=== PATIENT | male | born 1970 | race Caucasian/White ===

== ENCOUNTER 2022-05-08 12:45 | Outpatient (RCR) | payer MEDICAID, SELFPAY | END 2023-04-02 11:33 | disposition home or self-care (01) | PROVIDERS: PCP Surgery; Visit Provider Surgery | DX: F80.89 Other developmental disorders of speech and language (principal); Z51.89 Encounter for other specified aftercare | CPT/HCPCS: 92507; 92523 ==

== ENCOUNTER 2022-06-23 21:27 | Emergency (ER) | payer MEDICAID, SELFPAY ==
[2022-06-23 21:40] VITALS: BP 125/74; PULSE 82; RESP 18; TEMP 36.6; O2SAT 99; BMI 50.0
--- NOTE | 2022-06-23 21:55 | ED_ITS ---
HPI - General Adult General Time Seen by Provider: 21:55 Date Seen: 06/23/22 Chief complaint: GI Bleed Stated complaint: Blood in Stool Time Seen by Provider: 06/23/22 21:34 Source: patient Mode of arrival: ambulatory Limitations: no limitations History of Present Illness HPI narrative: Patient is a 52 year white male with obesity, insulin-dependent diabetes, histor y of kidney cancer, presents with small amount of blood associated with the stool today. He is not lightheaded, dizzy, on no blood thinners. He does take insulin, he has had no chest pain, breathing problem, COVID symptoms. No history of rectal bleeding. He reports his was able to look at his rectal area in the noted no abnormalities he has not had no lumps or tenderness Dr. Monet for primary care Related Data Allergies Allergy/AdvReac Type Severity Reaction Status Date / Time lisinopril Allergy Mild Cough Verified 06/23/22 21:43 metformin AdvReac Mild Diarrhea Verified 06/23/22 21:43 Review of Systems Status of ROS: Reports: 6 or more systems reviewed and unremarkable except as noted in History and below PFSH [facility] Medical History (Updated 06/23/22 @ 23:23 by Arnold Tinajero RN) Aphasia Gomez's palsy Carcinoma of kidney Carpal tunnel syndrome Eczema Hypertension Morbid obesity TYSON (obstructive sleep apnea) Psoriasis Type 2 diabetes mellitus without complication, with long-term current use of insulin Social History Smoking Status: Never smoker Second hand tobacco smoke exposure: No How often do you have a drink containing alcohol: never How often do you have six or more drinks on one occasion: Never AUDIT-C Alcohol total score: 0 Non-prescribed substance use: denies use Exam Narrative: Exam Narrative: Objective: Patient's vital signs unremarkable pulse is 82, O2 sat 99% on room air Abdomen obese benign nontender Extremities are no edema Neurologic nonfocal Const: Vital Signs, click to edit/add: Vital Signs - 24 hr 06/23/22 21:40 Temperature 97.9 F Pulse Rate [Right Pulse Oximeter] 82 Respiratory Rate 18 Blood Pressure [Ri ght Upper Arm] 125/74 Pulse Oximetry 99 Oxygen Delivery Me thod Room Air Course Vital Signs Vital signs: Initial Vital Signs Temperature 97.9 F 06/23/22 21:40 Temperature Source Temporal Artery Scan 06/23/22 21:40 Pulse Rate 82 06/23/22 21:40 Respiratory Rate 18 06/23/22 21:40 Blood Pressure 125/74 06/23/22 21:40 Blood Pressure Mean 91 06/23/22 21:40 Blood Pressure Position Sitting 06/23/22 21:40 Pulse Oximetry 99 06/23/22 21:40 Oxygen Delivery Method 06/23/22 21:40 Vital Signs Temperature 97.9 F 06/23/22 21:40 Pulse Rate 82 06/23/22 21:40 Respiratory Rate 18 06/23/22 21:40 Blood Pressure 125/74 06/23/22 21:40 Pulse Oximetry 99 06/23/22 21:40 Oxygen Delivery Method 06/23/22 21:40 Temperature 97.9 F 06/23/22 23:24 Pulse Rate 79 06/23/22 23:24 Respiratory Rate 18 06/23/22 23:24 Blood Pressure 115/74 06/23/22 23:24 Pulse Oximetry 99 06/23/22 23:24 Oxygen Delivery Method 06/23/22 23:24 Medical Decision Making MDM Narrative Medical decision making narrative: Patient reports that he had a small amount of blood associated with stool today, without symptomology. No rectal pain no rectal mass. At this point will check his lab studies if these are reassuring, his hemodynamics look good I think we can allow him to go home for follow-up with primary care and consideration of colon study it Addendum: The patient's hemoglobin is normal, will review his Chem profile and returns, recommend follow-up with primary care in the next couple of days for reassessment and consideration of further colon study Lab Data Labs: Lab Results 06/23/22 06/23/22 Range/Units 22:06 22:06 WBC 12.69 H (4.50-11.00) K/uL RBC 5.13 (4.30-5.90) m/uL Hgb 14.0 (13.5-17.5) gm/dL Hct 42.9 (37.0-53.0) % MCV 84 (80-100) fL MCH 27 (26-34) pg MCHC 33 (32-36) gm/dL RDW Coeff of Jamil 14.1 (11.5-15.5) % Plt Count 237 (140-440) K/uL Neut % (Auto) 71.9 (42.0-72.0) % Lymph % (Auto) 19.1 L (20-44) % [place] % (Auto) 6.4 (0.0-11.0) % Eos % (Auto) 1.7 (0.0-7.0) % Baso % (Auto) 0.4 (0.0-3.0) % Neut # (Auto) 9.10 H (1.7-7.0) K/uL Lymph # (Auto) 2.40 (0.90-2.90) K/uL [place] # (Auto) 0.80 (0.00-0.90) K/UL Eos # (Auto) 0.20 (0.00-0.50) K/uL Baso # (Auto) 0.10 (0.00-0.30) K/uL Abs Immat Gran (auto) 0.06 (0.00-0.30) K/uL Sodium 136 (135-149) mmol/L Potassium 4.0 (3.6-5.1) mmol/L Chloride 103 (96-114) mmol/L Carbon Dioxide 24 (20-32) mmol/L BUN 23 (7-30) mg/dL Creatinine 1.2 (0.5-1.5) mg/dL Estimated Creat Clear 64.98 Estimated GFR 73 ml/min Glucose 226 H (60-115) mg/dL Calcium 8.9 (8.4-10.6) mg/dL Discharge Plan Discharge Clinical Impression: History of rectal bleeding Patient Disposition: Home w/ Parent or Adult Condition: Stable Additional Instructions: Light activity, avoid aspirin or Advil or other NSAID products. Recheck with Dr. Monet for the next few days, consider colon study Activity Level: Light activity Discharge Diet: Diabetic Follow Up/Referrals: Aaron Miranda MD [Primary Care Provider] - Stand Alone Forms: [employer] Info Instructions
[2022-06-23 22:14] LABS: Basophils Percent Auto 0.4 % (0.0-3.0); Eosinophils Percent Auto 1.7 % (0.0-7.0); Hematocrit 42.9 % (37.0-53.0); Immature Granulocytes Abs Auto 0.06 K/uL (0.00-0.30); Lymphocytes Percent Auto 19.1 % (20-44); Mean Corpuscular HGB Conc 33 gm/dL (32-36); Mean Corpuscular Hemoglobin 27 pg (26-34); Mean Corpuscular Volume 84 fL (80-100); Monocytes Percent Auto 6.4 % (0.0-11.0); Neutrophils Percent Auto 71.9 % (42.0-72.0); Platelet Count* 237 K/uL (140-440); RDW Coefficient of Variation % 14.1 % (11.5-15.5); Red Blood Count 5.13 m/uL (4.30-5.90); White Blood Count* 12.69 K/uL (4.50-11.00)
[2022-06-23 22:21] LABS: Slide Review Reflex No
[2022-06-23 22:34] LABS: Chloride* 103 mmol/L (96-114); Sodium* 136 mmol/L (135-149)
[2022-06-23 22:37] LABS: Carbon Dioxide* 24 mmol/L (20-32); Creatinine* 1.2 mg/dL (0.5-1.5); Est. Creatinine Clearance* 64.98; Estimated Glomerular Filt Rate 73 ml/min
[2022-06-23 22:38] LABS: Blood Urea Nitrogen* 23 mg/dL (7-30); Calcium* 8.9 mg/dL (8.4-10.6); Glucose* 226 mg/dL (60-115)
--- OUTSIDE RECORDS SUMMARY | 2022-06-23 22:38 | XMS_ITS | Encounter Summary ---
:1970 Author Organization [facility] Address [address] [place] [address] Care Team Providers Name Role Phone Elsewhere, Pcp Primary Care Provider Unavailable Encounter Details Date Type Department Care Team Description 06/04/2022 Ancillary Procedure Department of Ophthalmology Social History Tobacco Use Types Packs/Day Years Used Date Smoking Tobacco: Former Cigarettes 0.1 10 Quit : 05/21/2021 Cigars Smokeless Tobacco: Never Comments: An occasional cigar, approxima tely 2 a month Alcohol Use Standard Drinks/Week Comments Not Currently 0 (1 standard drink = 0.6 oz pure alcoho l) Occasionally have a scotch Alcohol Habits Answer Date Recorded How often do you have a drink containing Monthly or less 06/02/2022 alcohol? How many drinks containing alcohol do you 1 or 2 06/02/2022 have on a typical day when you are drinking? How often do you have six or more drinks on Never 06/02/2022 one occasion? Comment: Occasionally have a scotch 03/23/2018 Social Isolation Answer Date Recorded In a typical week, how many times do you More than three roverto es a week 06/02/2022 talk on the phone with family, friends, or neighbors? How often do you get together with friends Three times a wee k 06/02/2022 or relatives? How often do you attend jehovah's witness or More than 4 times per year 06/02/2022 protestant services? Do you belong to any clubs or Yes 06/02/2022 organizations such as jehovah's witness groups, unions, fraternal or athletic groups, or school groups? How often do you attend meetings of the More than 4 times pe r year 06/02/2022 clubs or organizations you belong to? Are you now , , , 06/02/2022 , never or living with a partner? Physical Activity Answer Date Recorded On average, how many days per week do you engage in moderate to 2 days 06/02/2022 strenuous exercise (like walking fast, running, jogging, dancing, swimming, biking, or other activities that cause a light or heavy sweat)? On average, how many minutes do you engage in exercise at th is 20 min 06/02/2022 level? Stress Answer Date Recorded Do you feel stress - tense, restless, nervous, or To some ex tent 06/02/2022 anxious, or unable to sleep at night because your mind is troubled all the time - these days? Financial Resource Strain Answer Date Recorded How hard is it for you to pay for the very basics like food, Hard 06/02/2022 housing, medical care, and heating? Intimate Partner Violence Answer Date Recorded Within the last year, have you been afraid of your partner o r No 06/02/2022 ex-partner? Within the last year, have you been humiliated or emotionall y No 06/02/2022 abused in other ways by your partner or ex-partner? Within the last year, have you been kicked, hit, slapped, or No 06/02/2022 otherwise physically hurt by your partner or ex-partner? Within the last year, have you been raped or forced to have any No 06/02/2022 kind of sexual activity by your partner or ex-partner? Food Insecurity Answer Date Recorded Within the past 12 months, you worried that your food would Never true 06/02/2022 run out before you got money to buy more. Within the past 12 months, the food you bought just didn't N ever true 06/02/2022 last and you didn't have money to get more. Transportation Needs Answer Date Recorded In the past 12 months, has lack of transportation kept you f rom No 06/02/2022 medical appointments or from getting medications? In the past 12 months, has lack of transportation kept you f rom No 06/02/2022 meetings, work, or getting things needed for daily living? Housing Stability Answer Date Recorded In the last 12 months, was there a time when you were not ab le Yes 06/02/2022 to pay the mortgage or rent on time? In the last 12 months, how many places have you lived? 1 06/02/2022 In the last 12 months, was there a time when you did not hav e a No 06/02/[address] or slept in a chcf (including now)? Education Answer Date Recorded What is the highest level of school Associate degree: anthony sandrasaqib, 05/17/2020 you have completed or the highest technical, or vocational p gilbertoram degree you have received? Sex Assigned at Date Recorded Male 01/30/2018 9:28 AM CDT documented as of this encounter Plan of Treatment Upcoming Encounters Date Type Specialty Care Team Description 06/26/2022 Appointment Neurology Preet Landeros M.D . [address] [place] [phone] Bria Suh APRN, C.N.P., M.S.N. [address] [place] [phone] 07/25/2022 Appointment Radiology Preet Landeros M.D . [address] [place] [address] [phone] (Wo rk) documented as of this encounter Procedures Procedure Name Priority Date/Time Associated Comments Diagnosis OPHTHALMOLOGY IMAGE Routine 06/04/2022 12:50 Resu lts for this EXAM PM CDT procedure are i n the results section. documented in this encounter Results Visual Andino (VF)-Ophthalmology Image Exam (06/04/2022 12:50 PM CDT) Specimen (Source) Anatomical Collection Method Collection Time Re ceived Time Location / / Volume Laterality 06/04/2022 12:50 PM CDT Narrative [facility] - 06/04/2022 1:13 PM CDT This order has been created and auto-finalized to support the import of images acquired without order. The clini andrew documentation to support these images can be found on the encounter mitchell t produced images. Provider Not In System IMG NON RAD IMAGING PROCEDUR ES Performing Organization Address City/State/ZIP Code Phon e Number [facility] NA documented in this encounter Visit Diagnoses Not on filedocumented in this encounter Additional Health Concerns Assessment Noted Time PHQ-9 Depression Total Score: 8 03/29/2022 10:47 AM DIXIE Arredondo documented as of this encounter Care Teams Software Application Tester Relationship Specialty Start Date End Date Elsewhere, Pcp PCP - General Family Medicine 08/11/19 documented as of this encounter
--- OUTSIDE RECORDS SUMMARY | 2022-06-23 22:38 | XMS_ITS | Encounter Summary ---
:1970 Author Organization [facility] Address [address] [place] [address] Care Team Providers Name Role Phone Elsewhere, [...] or relatives? How often do you attend faith or More than 4 times per year 06/02/2022 spiritism services? Do you belong to any clubs or Yes 06/02/2022 organizations such as faith groups, unions, fraternal or athletic groups, or [...] place to sleep or slept in a snf (including now)? Education Answer Date Recorded What is the highest level of school Associate degree: anthony pretty, 05/17/2020 you have completed or the highest technical, or vocational p katie degree you have received? Sex Assigned at Date Recorded Male 01/30/2018 9:28 AM CDT documented as of this encounter Plan of Treatment Upcoming Encounters Date Type Specialty Care Team Description 06/26/2022 Appointment Neurology Preet Landeros M.D . [address] [place] [phone] Bria Suh APRN, C.N.P., M.S.N. [address] [place] [phone] 07/25/2022 Appointment Radiology Peret Landeros M.D . [address] [place] [address] [phone] (Wo rk) documented as of this encounter Procedures Procedure Name Priority Date/Time Associated Comments Diagnosis OPHTHALMOLOGY IMAGE Routine 06/04/2022 12:00 Resu lts for this EXAM AM CDT procedure are i n the results section. documented in this encounter Results Eyes Color-Ophthalmology Image Exam (06/04/2022 12:00 AM CDT) Specimen (Source) Anatomical Location Collection Method / Collectio n Time Received Time / Laterality Volume Narrative [facility] - 06/04/2022 2:28 PM CDT This order has been created [...] Depression Total Score: 8 03/29/2022 10:47 AM CD T documented as of this encounter Care Teams Menagerie Caretaker Relationship Specialty Start Date End Date Elsewhere, Pcp PCP - General Family Medicine 08/11/19 documented as of this encounter
--- OUTSIDE RECORDS SUMMARY | 2022-06-23 22:38 | XMS_ITS | Encounter Summary ---
:1970 Author Organization [facility] Address [address] [place] [address] Care Team Providers Name Role Phone Elsewhere, Pcp Primary Care Provider Unavailable Reason for Visit Reason Comments Rectal Bleeding Encounter Details Date Type Department Care Team Description 06/23/2022 Nurse Triage Department of [facility], Vishal Hemphill Bleeding Medicine, [facility], R.N. in [place], [place] [address] [facility] [address] [place] [phone] Social History Tobacco Use Types Packs/Day Years [...] or relatives? How often do you attend denominational or More than 4 times per year 06/02/2022 christianity services? Do you belong to any clubs or Yes 06/02/2022 organizations such as denominational groups, unions, fraternal or athletic groups, or [...] AM CDT documented as of this encounter Miscellaneous Notes Telephone Encounter - Dara Bergman R.N. - 06/23/2022 8:44 PM CDT Chief Complaint / Reason for Call Patient is a 52 y.o. male calling regarding Rectal Bleeding. Assessment Concern: Ashish describes multiple bowel movements with blood in the stool, normal consistency with minimal constipation. He denies diarrhea. Ashish noted the blood in the stool, on the toilet paper, and was enough bright red blood to make the toilet water strong pink/ red. Ashish notes light pain in the abdomen. Baby aspirin daily. No clots noted. His normal state of dizziness tonight, unchanged, from a condition he normally experiences. He has had more fatigue the last 2-3 days. He had urgency with the four stools that had blood in them. He never passed blood without stool. He did not find any open skin or hemorrhoids that would explain the bleeding. Present for: 12 hours Home cares tried: looking for external tears and hemorrhoids Calling to request: advice The recommended disposition is Go to ED Now. Reason for Disposition [1] MODERATE rectal bleeding (small blood clots, passing blood without stool, or toilet water turnsred) AND [2] more than once a day Protocols used: Rectal Wgnmrzcz-VGNFM-SQ Care Advice Patient/Caregiver understands and will follow care advice?: Yes, able to teach back GO TO ED NOW: * You need to be seen in the Emergency Department. * Go to the ED at nearest Hospital. * Leave now. Drive carefully. documented in this encounter Plan of Treatment Upcoming Encounters Date Type Specialty Care Team Description 06/26/2022 Appointment Neurology Preet Landeros M.D . [address] [place] [phone] Bria Suh APRN, C.N.P., M.S.N. [address] [place] [phone] 07/25/2022 Appointment Radiology Preet Landeros M.D . [address] [place] [address] [phone] (Wo rk) documented as of this encounter Visit Diagnoses Not on filedocumented in this encounter Additional Health Concerns Assessment Noted Time PHQ-9 Depression Total Score: 8 03/29/2022 10:47 AM CD T documented as of this encounter Care Teams Quality Assurance Supervisor Relationship Specialty Start Date End Date Elsewhere, Pcp PCP - General Family Medicine 08/11/19 documented as of this encounter
--- OUTSIDE RECORDS SUMMARY | 2022-06-23 22:38 | XMS_ITS | Clinical Summary ---
:1970 Author Organization [facility] Address [address] [place] [address] Care Team Providers Name Role Phone Elsewhere, Pcp Primary Care Provider Unavailable Source Comments Patient records contain information from all sites at [facility]. For routine questions regarding patient records, call [phone] during business hours, M-F 8:00 AM - 5:00 PM Central Time. Record requests for emergency care only can be directed to [phone] at any time.[facility] Allergies Active Allergy Reactions Severity Noted Date Comments Lisinopril Cough 09/27/2013 Metformin GI intolerance 09/12/2020 Medications Medication Sig Dispensed Refills Start Date End Date Status aspirin 81 mg capsule Take 81 mg by 0 2010 Active mouth daily. atorvastatin (LIPITOR) Take 1 tablet 90 tablet 3 05/26/2018 Active 40 mg tabletIndications: (40 mg total) by Hyperlipidemia Mixed mouth at bedtime. ONETOUCH VERIO strips Test blood 720 strip 3 05/29/2018 Active glucose 8 times per day insulin aspart U-100 18 units before 30 mL 5 07/19/2018 Active (NovoLOG Flexpen U-100 each meal 3 Insulin) 100 unit/mL times daily. injectionIndications: Diabetes Mellitus Type 2 Hyperglycemia (HCC), Jail Use Of Insulin Active (HCC) Additional Information Patient taking differently: 8-14 units before each meal 3 times daily., Other, Reported on 06/03/2022 valsartan (DIOVAN) 80 mg TAKE 1 TABLET (80 MG 90 tablet 3 01/2019 Active tabletIndications: TOTAL) BY MOUTH DAILY. Hypertension Essential Primary liraglutide (Victoza 3-Brijesh) Inject 1.8 mg under 27 mL 3 Active 0.6 mg/0.1 mL (18 mg/3 mL) the skin daily. injectionIndications: Diabetes Mellitus Type 2 Hyperglycemia (HCC) ipratropium (ATROVENT) 0.03 % Administer 2 sprays 0 Active nasal spray into each nostril 2 (two) times a day. levocetirizine (XYZAL) 5 mg Take 5 mg by mouth 0 Active tablet every evening. naproxen (NAPROSYN) 500 mg Take 500 mg by mouth 2 0 Active tablet (two) times a day as needed. Dexcom G6 Sensor device 0 05/18/2020 Active Dexcom G6 Transmitter device 0 03/27/2020 Active ketoconazole (NIZORAL) 2 % Apply 1 application 0 Active shampoo topically 2 (two) times a week. [employer] medical supply CPAP machine supplies 0 01/05/2019 Active misc insulin glargine (Lantus Inject 20 Units under 15 mL 11 04/2020 Active Solostar U-100 Insulin) 100 the skin at bedtime. unit/mL (3 mL) injection Additional Information Patient taking differently: 27 Units subcutaneous Daily at bedtime, Other, Reported on 01/08/2022 DME CPAPIndications: Snoring, DME Order 1 Device 0 07/05/2020 Active Apnea Sleep Obstructive omeprazole (PriLOSEC) 40 mg Take 40 mg by mouth [address] capsule daily. ferrous sulfate 325 mg (65 mg Take 65 mg of iron by 0 08/31/2020 Active iron) tablet mouth daily. with food Jardiance 25 mg tablet TAKE 1 TABLET(25 MG) BY 90 tablet 3 Active MOUTH EVERY MORNING BEFORE BREAKFAST Nystop 100,000 unit/gram Apply topically as 0 2020 Active powder needed. hydrOXYzine (ATARAX) 25 mg Take 25 mg by mouth 0 Active tablet every 8 (eight) hours as needed. fluticasone propionate Administer 2 sprays into 0 Active (FLONASE) 50 mcg/actuation each nostril 2 (two) nasal spray times a day as needed. clotrimazole (LOTRIMIN) 1 % Apply 1 application 0 04 /10/2020 Active cream topically as needed. To affected area. busPIRone (BUSPAR) 10 mg Take 10 mg by mouth 0 03/21 Active tablet daily. glucagon (Baqsimi) 3 Administer 1 spray into 0 Active mg/actuation nostril(s) as directed. spray,non-aerosol hydrocortisone 1 % solution Apply topically as 0 06/2022 Active needed. FLUoxetine (PROzac) 20 mg Take 3 capsules by mouth 0 10/24/2021 Active capsule daily. BD Ultra-Fine Short Pen as directed 0 02/08/2022 Active Needle 31 gauge x 5/16 needle verapamiL (VERELAN) 120 mg 24 Take 120 mg by mouth 0 02/26/2022 Active hr capsule every morning. acetaminophen (TYLENOL) 500 Take 2 tablets (1,000 mg 0 03/07/2022 Active mg tablet total) by mouth every 6 (six) hours as needed for pain for up to 4 days. Additional Information Patient taking differently: 1,000 mg oral As needed, pain, Other, Reported on 03/28/2022 SUMAtriptan (IMITREX) Take 50 mg by mouth as 0 06/03/2022 Discontinued (Therapy 50 mg tablet needed. May repeat completed) dose once in 2 hours if migraine unresolved. Do not exceed 200 mg in 24 hours. Hospital, Clinic, or Other Ordered Dose Route Frequency Start Date End Date Status Facility Administered Medication glucagon injection 1 mg 1 mg IV Once 09/11/2018 Active (GlucaGen) Active Problems Problem Noted Date Depression Major One Episode Moderate 03/06/2022 Carpal Tunnel Syndrome Bilateral 01/10/2022 Overview: Added automatically from request for darron edy [id number] Morbid Obesity Body Mass Index 50.0-59.9 Adult 022 Pain Joint 08/03/2020 Migraine Headache 08/03/2020 Apnea Sleep Obstructive 11/23/2018 Apnea Sleep Obstructive 08/26/2018 Tobacco Use 02/02/2018 Elevated Troponin 01/30/2018 Hyperlipidemia Mixed 04/07/2017 Body Mass Index 50.0 To 59.9 Adult 03/14/2017 Overview: Rule activated problem due to BMI 50-59 posted on 03/14 at 12:34 CDT. 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 06/04/2022 Comprehensive Visit Ophthalmology Hay Migrain e Headache Kiran Coronado M.D. Chronic 06/04/2022 Ancillary Procedure 06/04/2022 Ancillary Procedure Ophthalmology Venus Guido M.D. 06/04/2022 Ancillary Procedure Ophthalmology Venus Guido M.D. 06/04/2022 Ancillary Procedure 06/04/2022 Ancillary Procedure Ophthalmology Venus Guido M.D. 06/04/2022 Hospital Encounter Laboratory Medicine Preet Landeros Lo ss Memory M.Kristian 06/04/2022 Ancillary Procedure 06/03/2022 Office Visit Neurological Surgery Jeanie Barriga Stenosi s Spinal Cervical (Primary Dx); M.DBon Body Mass Index 50.0 To 59.9 Adult ([facility]); Tobacco Use; Diabetes [facility] Type 2 Hyperglycemia ([facility]); Carcinoma Renal Cell Left ([facility]); Hypertension Es sential Primary; Apnea Sleep Obs tructive; Carpal Tunnel S yndrome Bilateral 06/03/2022 Office Visit Neurology Preet Landeros Loss Memory (Pr imary Dx); Savanah Arambula Neurolog ical ([facility]); Migraine Headac he; Carpal Tunnel S yndrome Bilateral; Apnea Sleep Obs tructive 06/03/2022 Clinical Neurology Preet Landeros, Communication M.D. 05/31/2022 Orders Only Neurological Surgery Elliott Gamino Stenos is Spinal M.S.N., R.N. Cervical (Prima ry Dx) 04/04/2022 Clinical Neurology Preet Landeros, cervicap spine MRI Communication Savanah 03/29/2022 Office Visit Neurology Omalley, Migraine Headac he Chronic (Primary Dx); Elizabeth Lea, Migraine Headac he With Aura Roshan QUEEN, M.S.N. 03/29/2022 Hospital Encounter Neurology Preet Landeros, Migraine Headache M.D. Chronic Gokul Boyd M.D. 03/29/2022 Orders Only Ophthalmology Hay, Papilledema (Brooklynn Coronado M.D. Dx) 03/29/2022 Clinical Ophthalmology Hay, Appointment Communication Kiran Coronado M.D. 03/28/2022 Clinical Admitting/Central Pre-visit Intake Communication Scheduling from Last 3 Months Immunizations Name Administration Dates Next Due H1N1 All Forms 11/13/2009 H1N1 Inj 10/16/2009 Influenza Split 07/16/2015 Influenza, Seasonal, Injectable 06/16/2008, 08/28/2006, 06/16 Influenza, Unspecified 06/20/2017, 10/26/2015, 07/05/2014, 06/16/2014, 07/21/2013, 06/17/2012, 06/26/2011, 06/29/2010, 07/03/2009 PCV13 12/22/2017 PPSV23 02/27/2003 Td (Adult), adsorbed 11/15/2004 Tdap 06/09/2014 influenza vaccine quad 06/25/2018 (FLUZONE/FLUARIX) (6 months and older)(PF) Family History Medical History Relation Name Comments Diabetes Brother 1 Oj Murphy Stroke Brother 1 Oj Murphy Diabetes Brother 2 Zay Murphy Stroke Brother 2 Zay Murphy Dementia Father Gene Jeffrey Melanoma Father Gene Jeffrey Migraines Mother Taryn Murphy Relation Name Status Comments Brother 1 Oj Jeffrey Brother 2 Zay Jeffrey Father Gene Jeffrey Mother Taryn Murphy Social History Tobacco Use Types Packs/Day Years [...] or relatives? How often do you attend shinto or More than 4 times per year 06/02/2022 congregational services? Do you belong to any clubs or Yes 06/02/2022 organizations such as shinto groups, unions, fraternal or athletic groups, or [...] place to sleep or slept in a penitentiary (including now)? Education Answer Date Recorded What is the highest level of school Associate degree: anthony pretty, 05/17/2020 you have completed or the highest technical, or vocational p katie degree you have received? Sex Assigned at Date Recorded Male 01/30/2018 9:28 AM CDT Last Filed Vital Signs Vital Sign Reading Time Taken Comments Blood Pressure 111/75 06/03/2022 11:03 AM CDT Pulse 71 06/03/2022 11:03 AM CDT Temperature 36.5 ??C (97.7 ??F) 03/07/2022 1:20 PM CDT Respiratory Rate 12 03/07/2022 1:20 PM CDT Oxygen Saturation 95% 03/07/2022 1:20 PM CDT Inhaled Oxygen Concentration - - Weight 142 kg (313 lb 11.4 oz) 06/03/2022 11:03 AM CDT Height 164.9 cm (5' 4.92) 06/03/2022 11:03 AM CDT Body Mass Index 52.33 06/03/2022 11:03 AM CDT Plan of Treatment Upcoming Encounters Date Type Specialty Care Team Description 06/26/2022 Appointment Neurology Preet Landeros M.D . [address] [place] [address] [phone] Bria Suh APRN, C.N.P., M.S.N. [address] [place] [address] [phone] 07/25/2022 Appointment Radiology Preet Landeros M.D . [address] [place] [address] [phone] (Wo rk) Health Maintenance Due Date Last Done Comments CT Colonography 1970 Cologuard 1970 Colonoscopy 1970 Colorectal Cancer Screening 1970 FIT 1970 HIV Screening 1970 Hepatitis C Screening 1970 Diabetic Office Visit with Foot 03/14/2018 03/14/2017, 10/16 Exam Urine Albumin 05/27/2019 05/27/2018, 03/20/2018, 02/13/2017, Additional history exists Zoster Vaccines (1 of 2) 2020 Diabetes Education 06/28/2021 06/28/2020, 03/14/2017, 10/26/2015 COVID-19 Vaccine (5 - Booster for 01/31/2022 12/06/2021, , Pfizer series) 12/26/2020, Additional history exists Influenza Vaccine (#1) 2022 06/08/2020, 06/10/2019, 06/25/2018, Additional history exists Depression Monitoring (PHQ-9) 07/30/2022 03/29/2022 Hemoglobin A1C 09/05/2022 03/06/2022, 11/23/2018 (Performed elsewhere), 09/04/2018, Additional history exists Office Visit for Blood Pressure 06/03/2023 06/03/2022 Check / Re-check Creatinine Level 06/04/2023 06/04/2022, 10/25/2021, 07/19/2021, Additional history exists Dilated Eye Exam 06/04/2023 06/04/2022, 06/04/2022, 06/04/2022, Additional history exists Potassium Level 06/04/2023 06/04/2022, 02/24/2022, 02/23/2022, Additional history exists Sodium Level 06/04/2023 06/04/2022, 10/25/2021, 12/15/2020, Additional history exists DTaP,Tdap,and Td Vaccines (2 - Td 06/09/2024 06/09/2014, or Tdap) Lipid (Cholesterol) Screening 02/23/2027 02/23/2022, 2021, 05/04/2020, Additional history exists Pneumococcal vaccine (0-64 years) 2035 03/08/2019, , (3 - PPSV23 or PCV20) 02/27/2003 Hepatitis B Vaccines Completed 03/08/2019, 11/23/2018, 07/16/2015 Medical Devices Implanted Type Area [employer] Decorator Device Shelf Model / Identifier Expiration Date Ser ial / Lot Mesh Or Patch Mesh or Abdomen Patch Procedures Procedure Name Priority Date/Time Associated Comments Diagnosis FUNDUS PHOTOS - OU - Routine 06/04/2022 2:17 PM Papilledema R esults for this BOTH EYES CDT procedure are i n the results section. OPTICAL COHERENCE Routine 06/04/2022 2:17 PM Papilledema Resu lts for this TOMOGRAPHY (OCT) - CDT procedure are in OPTIC NERVE - OU - the resul ts BOTH EYES section. OPHTHALMOLOGY IMAGE Routine 06/04/2022 2:05 PM Re sults for this EXAM CDT procedure are i n the results section. AUTOMATED VF - Routine 06/04/2022 1:03 PM Papilledema Results for this EXTENDED - OU - BOTH CDT procedu re are in EYES the results section. OPHTHALMOLOGY IMAGE Routine 06/04/2022 12:50 Resu lts for this EXAM PM CDT procedure are i n the results section. NH ORGANIC ACID 1 Routine 06/04/2022 10:24 Result s for this QUANT 2 AM CDT procedure are i n the results section. COMPREHENSIVE Routine 06/04/2022 10:24 Loss Memory Results fo r this METABOLIC PANEL, S/P AM CDT procedu re are in the results section. CBC WITH DIFFERENTIAL, Routine 06/04/2022 10:24 Loss Memory R esults for this B AM CDT procedure are i n the results section. THYROID FUNCTION Routine 06/04/2022 10:24 Loss Memory Results for this CASCADE, S AM CDT procedure are i n the results section. PERNICIOUS ANEMIA Routine 06/04/2022 10:24 Loss Memory Result s for this CASCADE, S AM CDT procedure are i n the results section. OPHTHALMOLOGY IMAGE Routine 06/04/2022 12:00 Resu lts for this EXAM AM CDT procedure are i n the results section. NH CHEMODENERV FACIAL Routine 03/29/2022 10:26 Migraine Headac he Results for this TRIGEM NATALIE AM CDT Chronic procedure are i n the results section. from Last 3 Months Results Fundus Photos - OU - Both Eyes (06/04/2022 2:17 PM CDT) Specimen (Source) Anatomical Location Collection Method / Collectio n Time Received Time / Laterality Volume Narrative OPHTHALMOLOGY IMAGING EXAM - 06/04/20 3:46 PM CDT Right Eye Fundus photo type obtained is Color. Left Eye Fundus photo type obtained is Color. Notes The interpretation report for this test can be found in the Testing section of the chart note dated 2 Kiran Guido M.D. OPHTH PHOTOGRAPHY Performing Organization Address City/[facility] Code Phon e Number OPHTHALMOLOGY IMAGING EXAM Optical Coherence Tomography - Optic Nerve - OU - Both Eyes (06/04/2022 2:17 PM CDT) Specimen (Source) Anatomical Location Collection Method / Collectio n Time Received Time / Laterality Volume Narrative OPHTHALMOLOGY IMAGING EXAM - 06/04/20 3:46 PM CDT OCT device used was Ad Dynamos . Right Eye Reliability was good. Left Eye Reliability was good. Notes The interpretation report for this test can be found in the Testing section of the chart note dated 2 Kiran Guido M.D. OPHTH TOMOGRAPHY Performing Organization Address [facility]/ZIP Code Phon e Number OPHTHALMOLOGY IMAGING EXAM Optical Coherence Tomography (OCT)-Ophthalmology Image Exam (06/04/2022 2:05 PM CDT)Only the most recent of3 resultswithin the time period is included. Specimen (Source) Anatomical Collection Method Collection Time Re ceived Time Location / / Volume Laterality 06/04/2022 2:03 PM CDT Narrative IIMS - 06/04/2022 5:08 PM CDT This order has been created and auto-finalized to support the import of images acquired without order. The clini andrew documentation to support these images can be found on the encounter mitchell t produced images. Provider Not In System IMG NON RAD IMAGING PROCEDUR ES Performing Organization Address [facility]/ZIP Code Phon e Number IIPR IIMS NA Automated VF - Extended - OU - Both Eyes (06/04/2022 1:03 PM CDT) Specimen (Source) Anatomical Location Collection Method / Collectio n Time Received Time / Laterality Volume Narrative OPHTHALMOLOGY IMAGING EXAM - 06/04/20 3:46 PM CDT Right Eye Automated visual field device used was Z eiss. Strategy was ANNETTE. Threshold was 24-2. Eyelid was untaped. Left Eye Automated visual field device used was Z eiss. Strategy was ANNETTE. Threshold was 24-2. Eyelid was untaped. Notes The interpretation report for this test can be found in the Testing section of the chart note dated 2 Kiran Guido M.D. OPHTH VISUAL FIELD Performing Organization Address City/[facility]/ZIP Code Phon e Number OPHTHALMOLOGY IMAGING EXAM Methylmalonic Acid (MMA), Quantitative, Serum (06/04/2022 10:24 AM CDT) Analysis Performed At Patho logist Time Signature Methylmalonic 0.11 <=0.40 06/06/2022 DTL Acid, QN, S nmol/mL 4:21 PM CDT Comment: No cellular B-12 deficiency. ----ADDITIONAL INFORMATION---- This test was developed and its performa nce characteristics determined by [facility] in a manner consistent with CLIA requirements. This test has not been cleared or approved by the [place] d and Drug Administration. Specimen Anatomical Collection Method Collection Time Receive d Time (Source) Location / / Volume Laterality Blood 06/04/2022 10:24 06/04/2022 3:51 AM CDT PM CDT Authorizing Provider Result Paul Landeros M.D. LAB BLOOD NON ADD-ON Performing Organization Address City/[facility]/ZIP [facility] Phon e Number [facility] - [address] [place], [place] [address] [place], [place] [id number] [place] [address] Thyroid Function [place] (06/04/2022 10:24 AM CDT) athologist Signature TSH, Sensitive 0.8 0.3 - 4.2 06/04/2022 [facility] mIU/L 12:12 PM CDT Specimen Anatomical Collection Method Collection Time Receive d Time (Source) Location / / Volume Laterality Blood (Blood, 06/04/2022 10:24 06/04/2022 Venous) AM CDT 11:44 AM CDT Authorizing Provider Result Paul Landeros M.D. LAB BLOOD ADD-ON Performing Organization Address City/[facility] Phon e Number [facility] - [address] [place], [place] [address] Pernicious Anemia [place] (06/04/2022 10:24 AM CDT) athologist Signature Vitamin B12 342 180 - 914 06/04/2022 [facility] Assay, S ng/L 3:51 PM CDT Comment: B-12 <400; MMA test was perform ed. Specimen Anatomical Collection Method Collection Time Receive d Time (Source) Location / / Volume Laterality Blood (Blood, 06/04/2022 10:24 06/04/2022 2:12 Venous) AM CDT PM CDT Authorizing Provider Result Paul Landeros M.D. LAB BLOOD NON ADD-ON Performing Organization Address City/[facility]/ZIP Code Phon e Number [facility] [address] [place], [place] [address] [place] [address] [facility] [address] [place] (ABNORMAL) CBC with Differential, Blood (06/04/2022 10:24 AM CDT) [facility] gist Method Time Signature Hemoglobin 15.1 13.2 - 06/04/2022 DTL 16.6 g/dL 10:57 AM CDT Hematocrit 47.0 38.3 - 06/04/2022 DTL 48.6 % 10:57 AM CDT Erythrocytes 5.59 4.35 - 06/04/2022 DTL 5.65 10:57 AM CDT x10(12)/L MCV 84.1 78.2 - 06/04/2022 DTL 97.9 fL 10:57 AM CDT RBC Distrib Width 13.9 11.8 - 06/04/2022 DTL 14.5 % 10:57 AM CDT Platelet Count 232 135 - 317 06/04/2022 DTL x10(9)/L 10:57 AM CDT Leukocytes 10.7 (H) 3.4 - 9.6 06/04/2022 DTL x10(9)/L 10:57 AM CDT Neutrophils 8.36 (H) 1.56 - 06/04/2022 DTL 6.45 10:57 AM CDT x10(9)/L Lymphocytes 1.51 0.95 - 06/04/2022 DTL 3.07 10:57 AM CDT x10(9)/L Monocytes 0.61 0.26 - 06/04/2022 DTL 0.81 10:57 AM CDT x10(9)/L Eosinophils 0.16 0.03 - 06/04/2022 DTL 0.48 10:57 AM CDT x10(9)/L Basophils 0.04 0.01 - 06/04/2022 DTL 0.08 10:57 AM CDT x10(9)/L Specimen Anatomical Collection Method Collection Time Receive d Time (Source) Location / / Volume Laterality Blood (Blood, 06/04/2022 10:24 06/04/2022 Venous) AM CDT 10:49 AM CDT Preet Landeros M.D. LAB BLOOD ADD-ON Performing Organization Address City/State/ZIP Code Phon e Number [facility] [address] [place] [address] [facility] [place] [address] [facility] [address] [facility] Comprehensive Metabolic Panel (06/04/2022 10:24 AM CDT) P athologist Signature Potassium, S 4.4 3.6 - 5.2 06/04/2022 DTL mmol/L 12:12 PM CDT Sodium, S 140 135 - 145 06/04/2022 DTL mmol/L 12:12 PM CDT Chloride, S 103 98 - 107 06/04/2022 DTL mmol/L 12:12 PM CDT Bicarbonate, S 26 22 - 29 06/04/2022 DTL mmol/L 12:12 PM CDT Anion Gap 11 7 - 15 06/04/2022 DTL 12:12 PM CDT BUN (Blood Urea 12 8 - 24 06/04/2022 DTL Nitrogen), S mg/dL 12:12 PM CDT Creatinine 0.96 0.74 - 06/04/2022 DTL 1.35 mg/dL 12:12 PM CDT Estimated GFR >90 >=60 06/04/2022 DTL (eGFR) mL/min/BSA 12:12 PM CDT Comment: Estimated GFR calculated using the 2020 CKD_EPI creatinine equation. Calcium, Total, S 9.1 8.6 - 10.0 mg/dL 06/04/2022 12:1 2 PM CDT DTL Glucose, S 124 70 - 140 mg/dL 06/04/2022 12:12 PM CDT DTL Protein, Total, S 6.7 6.3 - 7.9 g/dL 06/04/2022 12:12 PM CDT DTL Albumin, S 4.0 3.5 - 5.0 g/dL 06/04/2022 12:12 PM CDT DTL Aspartate Aminotransferase 19 8 - 48 U/L 06/04/2022 1 2:12 PM CDT DTL (AST), S Alkaline Phosphatase, S 109 40 - 129 U/L 06/04/2022 12 :12 PM CDT DTL Alanine Aminotransferase (ALT), 26 7 - 55 U/L 022 12:12 PM CDT DTL S Bilirubin, Total, S 0.4 <=1.2 mg/dL 06/04/2022 12:12 P M CDT DTL Specimen Anatomical Collection Method Collection Time Receive d Time (Source) Location / / Volume Laterality Blood (Blood, 06/04/2022 10:24 06/04/2022 Venous) AM CDT 11:44 AM CDT Preet Landeros M.D. LAB BLOOD ADD-ON Performing Organization Address City/State/ZIP Code Phon e Number [facility] - [address] [place], [place] [address] [facility] [place] [address] [facility] [address] [place] CHEMODENERV FACIAL TRIGEM NATALIE (03/29/2022 10:26 AM CDT) Narrative MMODAL - 03/29/2022 10:26 AM CDT Gokul Boyd M.D. ? 03/29/2022 10:41 AM Botox for Chronic Migraine Date/Time: 03/29/2022 10:26 AM Performed by: Gokul Boyd M.D. Authorized by: Preet Landeros M.D. Care team members present 1. Elliott Patel M.D. 2. Karen Foster L.P.N. PROCEDURE DETAILS ?? Pre-procedure pain score: 0/10 Injection of: 100 Units onabotulinumtoxi nA 100 unit; 100 Units onabotulinumtoxinA 100 unit Needle gauge: 30 Needle length: 0.5 in Injection site details Health Education Aide / Procerus muscle(s): 5 units into the left golf starter and ranger muscle, 5 units into the right golf starter and ranger muscle and 5 units into the procerus muscle ??(15 units total). Superior Frontalis muscle(s): 5 units in to the left superior frontalis muscle and 5 units into the right superi or frontalis muscle ?? (2 injection sites per muscle) (10 units total). Temporalis muscle(s): 25 units into the left temporalis muscle and 25 units into the right temporalis muscle ? ? (4 injection sites per muscle) ?? (50 units total). Splenius Capitis muscle(s): 12.5 units i nto the left splenius capitis muscle and 12.5 units into the right spl enius capitis muscle ?? (2 injection sites per muscle) ??(25 units total). Occipitalis muscle(s): 25 units into the left occipitalis muscle and 25 units into the right occipitalis muscle ??(4 injection sites per muscle) ?? (50 units total). Trapezius muscle(s): 25 units into the l eft trapezius muscle and 25 units into the right trapezius muscle ??(3 inj ection sites per muscle) ??(50 units total). Total units wasted: 0 Total units injected: 200 CONSENT Consent obtained: written UNIVERSAL PROTOCOL All relevant documentation and testing w ere reviewed and available. All required blood products, implants, devic es and or special equipment were made available as applicable. Pre-proced ure verification was conducted and the correct site was marked if required. A fire risk assessment was done as applicable. The procedural time-out t o verify correct patient, correct side/site, and procedure was conducted p rior to performing the procedure and confirmed in a procedural pause. PRE-PROCEDURE DETAILS ?? Reason for injections: chronic migraine Appropriate hand hygiene, gown, cap, mas k, protective eyewear, sterile gloves, skin preparation, sterile drape, and strict aseptic technique were utilized as applicable for the procedure : yes Site preparation: alcohol Clinical history: Patient was made aware that they may be responsible for any and all costs associated with inject ion of Botulinum Toxin Type A that is not covered by a third republican. ?? Prior to treatment with Botox, the frequ ency of headaches was greater than 15 days per month and with significant i mpairment in the quality of life. ?? Please see the initial Botox injection n ote and Headache consultation note regarding specific details of the headac he history prior to the start of treatment. Any other daily migraine prophylactic tr eatments taken over the last 3 months: ??Propranolol and verapamil Headache frequency when Botox is most ef fective (middle month in between rounds). Headache days per month: 3 days Severe headache days per month: 1 days Wearing off phenomenon prior to this rou nd of Botox: yes Duration: 1 weeks Patient finds Botox treatment helpful an d wants to repeat the treatment? yes Patient had migraine headache frequency reduction by at least 7 days per month compared to pretreatment level, or migraine headache duration reduction of at least 100 hours per natasha h compared to pretreatment level? yes Midas Scorin (03/26/2022 10:53 AM) POST-PROCEDURE DETAILS ?? Procedure completed successfully: yes ?? Complications: no apparent complications PLAN: The patient has had good response for tr eatment of their chronic migraine with onabotulinumtoxin A injections at 2 00 units every 12 weeks in that the patient had migraine headache freque ncy reduction by at least 7 days per month compared to pretreatment level , or migraine headache duration reduction of at least 100 hours per natasha h compared to pretreatment level. ?? Therefore, I have encouraged the patient to schedule their next round of injections 200 units in 12 weeks. ATTESTATION STATEMENT A resident or fellow participated in the procedure, and the business operations consultant was present for the entire procedure. Preet Landeros M.D. NEUROLOGY ORDERABLES Performing Organization Address City/State/ZIP Code Phon e Number MMODAL MMODAL NA from Last 3 Months Insurance Payer Benefit Plan Subscriber ID Effective Dates Phone Address Type / Group [facility] [id number] 2021-[place] [phone] [id number] X [id number] Medicaid HMO t [address] [place] [address] (Work) [id number] Care Teams Footwear Sales Leader Relationship Specialty Start Date End Date Elsewhere, Pcp PCP - General Family Medicine 08/11/19
--- OUTSIDE RECORDS SUMMARY | 2022-06-23 22:39 | XMS_ITS | Encounter Summary ---
:1970 Author Organization [facility] Address [address] [place] [id number] Care Team Providers Name Role Phone Elsewhere, Pcp Primary Care Provider Unavailable Reason for Visit Auth/Cert Specialty Diagnoses / Procedures Referred By Contact Refer red To Contact Diagnoses Carpal Tunnel Syndrome Bilateral Procedures HI NEUROPLASTY MEDN NRV CARP TUNL RELEASE CARPAL TUNNEL OPEN WRIST Referral ID Status Reason Start Date Expiration Date Visits Requ ested Visits Authorized [id number] 1 1 Encounter Details Date Type Department Care Team Description 03/07/2022 Anesthesia Event Outpatient Procedure Laura Welch APRN, OCEANOGRAPHIC METEOROLOGIST, DNAP [address] [place] [phone] [place], M.D. [address] [place] [phone] [place] [address] [place], [place] [phone] Anesthesia Record Procedure Summary Procedure Name Responsible Anesthesia Start Anesthesia Stop Time Anesthesiologist Time RELEASE CARPAL Laura Welch APRN, 03/07/22 1117 2 1226 TUNNEL OPEN WRIST. OCEANOGRAPHIC METEOROLOGIST, DNAP (Left: Wrist) Events Date Time Event Comment 03/07/2022 1039 1117 An Start Machine/Equipmen t Checked Infection Precautions Foll owed Procedure/Site Verified NPO Sta tus Verified Supine Standard ASA Mon itors Applied 1126 Turnover to Proceduralist 1136 Proc Start 1209 Proc Fin 1216 Turnover to ANE Staff 1219 an stop data 1226 An End I completed my h andoff to the receiving staff [facility] 1. Identified the patient 2. Ident ified the responsible provider 3. Revi ewed the pertinent medical history 4. Discu ssed the surgical course 5. Reviewed intra-o p anesthesia management and issues during an esthesia 6. Set expectations for post-procedure period 7. Allowed opportun ity for questions and acknowledgement of understanding. Name Total fentanyl injection 50 mcg/mL 50 mcg lidocaine 2% (mg) injection 60 mg propofol 10 mg/mL injection 100 mg propofol 10 mg/mL infusion 424.11 mg ondansetron PF 4 mg/2 mL injection 4 mg ceFAZolin injection 3,000 mg (ANCEF) 3 g lactated ringers 625 mL Agents No agents on file. Blood No blood administrations on file. Lines, Drains, and Airways Type Details Placement Removal Wound 03/07/22; 1156; Incision; 03/07/22 1156 by Mayur , Wrist; Anterior, Left Ophelia Perez R.N. Peripheral IV Placement Date: 03/07/22; 03/07/22 1103 by 03/07 1327 by Placement Time: 1103; Gretchen Moncada, R.N. Gretchen Mcgee, Catheter Size: 22 G; R.N. Orientation: Right; Location: Hand; Site Prep: Chlorhexidine (Preferred); Technique: Anatomical landmarks; Removal Date: 03/07/22; Removal Time: 1327; Removal Reason: Per order documented in this encounter Social History Tobacco Use Types Packs/Day Years Used Date Smoking Tobacco: Light Smoker Cigarettes 0.1 10 Cigars Smokeless Tobacco: Never Comments: An occasional [...] or relatives? How often do you attend baptism or More than 4 times per year 06/02/2022 holiness services? Do you belong to any clubs or Yes 06/02/2022 organizations such as baptism groups, unions, fraternal or athletic groups, or [...] place to sleep or slept in a [facility] (including now)? Education Answer Date Recorded What is the highest level of school Associate degree: anthony pretty, 05/17/2020 you have completed or the highest technical, or vocational frances wilson degree you have received? Sex Assigned at Date Recorded Male 01/30/2018 9:28 AM CDT documented as of this encounter OR Notes Anesthesia Postprocedure Evaluation - Laura Welch APRN, CRNA, DNAP - 03/07/2022 12:31 PM CDT Patient: Paul Murphy Procedure Summary Date: 03/07/22 Room / Location: [place] [id number] / [facility] in [place], [place] Anesthesia Start: 1117 Anesthesia Stop: 1226 Procedure: RELEASE CARPAL TUNNEL OPEN WRIST. (Left Wrist) Diagnosis: Carpal Tunnel Syndrome Bilateral (Carpal Tunnel Syndrome Bilateral [G56.03].) Surgeons: Mathieu Solorzano M.D. Responsible Provider: Laura Welch APRN, CRNA, DNAP Anesthesia Type: MAC ASA Status: 3 Anesthesia Type: MAC Last vitals Vitals Value Taken Time BP 107/66 03/07/22 1230 Temp 36.5 ??C 03/07/22 1228 Pulse 64 03/07/22 1231 Resp 14 03/07/22 1231 SpO2 98 % 03/07/22 1231 Vitals shown include unvalidated device data. Please reference Vitals flowsheet for most recent vital signs. Anesthesia Post Evaluation Patient Disposition: dismissal Cardiovascular status: hemodynamics (HR & BP) acceptable Respiratory status: patent airway with spontaneous effort Temperature: normothermic Oxygen requirements: room air Level of consciousness: awake Pain score: pain adequately controlled and/or at baseline Post Op nausea/vomiting: none Hydration status: euvolemic Anesthesia Preprocedure Evaluation - Emre Coelho M.D. - 03/07/2022 10:39 AM CDT Preprocedure Anesthesia & H&P Assessment Procedure Summary Date/Time: 03/07/22 1130 Procedure: RELEASE CARPAL TUNNEL OPEN WRIST. (Left ) Diagnosis: Carpal Tunnel Syndrome Bilateral [G56.03] Pre-op diagnosis: Carpal Tunnel Syndrome Bilateral [G56.03]. Location: [address] in [place], [place] Surgeons: Mathieu Solorzano M.D. Pertinent components of the patient's history including current problem list, medical history, surgical history, family history, social history, medications and allergies were reviewed. Present illnessand pre-op diagnosis were confirmed. The planned surgery / procedure was verified with the patient /legal guardian. 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?alert and alert and oriented x 3 Dental Dental Assessment: dentition intact ASSESSMENT / PLAN ANESTHESIA PLAN ASA: 3 Anesthesia Plan: MAC Patient seen and allergies reviewed, anesthesia plan and risks discussed directly with patient /legal guardian or through an asl interpreter. Risks/Benefits/Alternatives of Blood transfusion discussed with patient / legal guardian, including an opportunity to ask questions and/or decline some or all transfusion therapies. The patient / legalguardian consented to the use of all blood products, as deemed medically necessary Approval to Proceed: approved for anesthesia documented in this encounter Plan of Treatment Upcoming Encounters Date Type Specialty Care Team Description 06/26/2022 Appointment Neurology Preet Landeros M.D . [address] [place] [phone] Bria Suh APRN, C.N.P., M.S.N. [address] [place] [phone] 07/25/2022 Appointment Radiology Preet Landeros M.D . [address] [place] [address] [phone] (Wo rk) documented as of this encounter Visit Diagnoses Not on filedocumented in this encounter Administered Medications Inactive Administered Medications - up to 3 most recent administrations Medication Order MAR Action Action Date Dose Rate Site ceFAZolin injection 3,000 mg Given 03/07/2022 11:30 AM CDT 3 g (ANCEF) 3,000 mg (rounded from 3,500 mg = 25 mg/kg ? 140 kg), intravenous, Once, On [place] 03/07/22 at 1030, For 1 dose, Intra-Op, Preoperatively within 1 hour prior to surgical incision If needed, reconstitute vial per package insert instructions. See IVAG for administration guidelines. , Drug Monitoring Program: Pharmacist to adjust medication dosing based on indication and drug clearance factors., Indications: Prophylaxis, surgical fentaNYL injection (SUBLIMAZE) Given 03/07/2022 11:43 AM CDT 25 mcg intravenous, As needed, Starting on [place] 03/07/22 at 1120, Anesthesia Intra-op Given 03/07/2022 11:20 AM CDT 25 mcg lactated ringers Continued from OR 03/07/2022 12:35 PM 20 mL/hr 20 mL/hr 20 mL/hr, intravenous, CDT Continuous, Starting on [place] 03/07/22 at 1045 Restarted 03/07/2022 11:17 AM CDT New Bag 03/07/2022 11:05 AM CDT 20 mL/hr 20 mL/hr lidocaine (PF) (cardiac) injection Given 03/07/2022 11:20 AM CDT 60 mg intravenous, As needed, Starting on [place] 03/07/22 at 1120, Anesthesia Intra-op ondansetron (PF) injection (ZOFRAN) Given 03/07/2022 11:20 AM CDT 4 mg intravenous, As needed, Starting on [place] 03/07/22 at 1120, Anesthesia Intra-op propofol 10 mg/mL infusion Rate/Dose 03/07/2022 50 mcg/kg/min 42.06 (DIPRIVAN) Change 11:47 AM CDT mL/hr intravenous, Continuous Infusion: Per Instructions PRN, Starting on [place] 03/07/22 at 1123, Anesthesia Intra-op Rate/Dose Change 03/07/2022 11:43 AM CDT 125 mcg/kg/min 105.15 mL/h r Rate/Dose Change 03/07/2022 11:30 AM CDT 100 mcg/kg/min 84.12 mL/hr propofoL injection (DIPRIVAN) Given 03/07/2022 12:08 PM CDT 30 mg intravenous, As needed, Starting on [place] 03/07/22 at 1126, Anesthesia Intra-op Given 03/07/2022 12:05 PM CDT 30 mg Given 03/07/2022 11:43 AM CDT 20 mg documented in this encounter Additional Health Concerns Assessment Noted Time PHQ-9 Depression Total Score: 12 02/01/2021 9:43 AM CD T documented as of this encounter Care Teams Art Critic Relationship Specialty Start Date End Date Elsewhere, Pcp PCP - General Family Medicine 08/11/19 documented as of this encounter
--- OUTSIDE RECORDS SUMMARY | 2022-06-23 22:39 | XMS_ITS | Encounter Summary ---
:1970 Author Organization [facility] Address [address] [place] [address] Care Team Providers Name Role Phone Elsewhere, Pcp Primary Care Provider Unavailable Reason for Visit Auth/Cert Specialty Diagnoses / Procedures Referred By Contact Refer red To Contact Diagnoses Carpal Tunnel Syndrome Bilateral Procedures DC NEUROPLASTY MEDN NRV CARP TUNL RELEASE CARPAL TUNNEL OPEN WRIST Referral ID Status Reason Start Date Expiration Date Visits Requ ested Visits Authorized [id number] 1 1 Encounter Details Date Type Department Care Team Description 03/07/2022 Hospital Encounter Outpatient Procedure [facility] [place] [facility] [place] [address] [place] [address] [address] [place] [phone] (Wo rk) Social History Tobacco Use Types Packs/Day Years [...] More than 4 times per year 06/02/2022 caodaism services? Do you belong to any clubs or Yes 06/02/2022 organizations such as faith groups, unions, fraPulseOn or athletic groups, or school groups? How [...] AM CDT documented as of this encounter Last Filed Vital Signs Vital Sign Reading Time Taken Comments Blood Pressure 105/79 03/07/2022 1:20 PM CDT Pulse 61 03/07/2022 1:20 PM CDT Temperature 36.5 ??C (97.7 ??F) 03/07/2022 1:20 PM CDT Respiratory Rate 12 03/07/2022 1:20 PM CDT Oxygen Saturation 95% 03/07/2022 1:20 PM CDT Inhaled Oxygen Concentration - - Weight 140 kg (309 lb 1.4 oz) 03/07/2022 10:39 AM CDT Height 165.1 cm (5' 5) 03/07/2022 10:39 AM CDT Body Mass Index 51.43 03/07/2022 10:39 AM CDT documented in this encounter Discharge Summaries Skip Wise M.D. - 03/07/2022 10:57 AM CDT DISCHARGE SUMMARY BRIEF OVERVIEW Hospital: [facility] Discharge Provider: Mathieu Solorzano M.D. Primary Care Providers: Elsewhere, Pcp (General) No address on file Primary Care Provider Phone Number: None Primary Care Provider Fax Number: None Admission Date: 03/07/2022 Discharge Date: 03/07/2022 PRINCIPAL DIAGNOSIS Carpal Tunnel Syndrome Bilateral SECONDARY DIAGNOSES Principal Problem: Carpal Tunnel Syndrome Bilateral Resolved Problems: * No resolved hospital problems. * Surgery Information This Encounter Past and Present Procedures (03/07/2021 to Today) Date Procedures Providers Location 03/07/2022 RELEASE CARPAL TUNNEL OPEN WRIST. Mathieu Solorzano M.D.Peters, Pierce A, M.D. [id number] OR DISCHARGE DISPOSITION Home or Self Care [1] ACTIVE ISSUES REQUIRING FOLLOW UP WOUND CARE: You have a surgical incision, and should inspect it daily for signs and symptoms of infection which include, but are not limited to, redness or increased pain at the site of the incision, purulent drainage (pus) from the incision, separation of the wound edges, nausea, vomiting, general malaise, fevers greater than 101.5 degrees Fahrenheit, and chills. If these occur in combination or if there is purulent drainage (pus) coming from the wound, please call your primary care physician or the surgical service at . The surgical incision should be kept clean. This is best accomplished by letting shower water run across it and then patting it dry. The wound should not be directly scrubbed. It should not be immersedin water (i.e. hot tub, bath tub, swimming, etc.) until the scab falls off. Please continue your splint for as long as Dr. Solorzano directed. You had a carpal tunnel surgery, and your skin was closed with nonabsorbable sutures that should be removed after 14 days. Any medical provider can remove the sutures, including Urgent Care, your Primary Care Provider, or a member of [facility] staff. You are welcome to call to schedule a member of our team to remove the sutures oryou can make an appointment closer to your home. Please avoid any wound contact with water for 72 hours. After that point, you may shower and let water run over the wound freely. The surgical wound should be kept clean, and this is best accomplished by letting shower water run across it and by lightly cleansing with normal shampoo. The wound should not be immersed in water (i.e. hot tub, bath tub, swimming, etc.) for a period of six weeks. PAIN MANAGEMENT: Take your pain medications as instructed. It is best to take pain medications before your pain becomes severe. This will allow you to take less medication yet have better pain relief. For the first 2 or 3 days it may be helpful to take your pain medications on a regular schedule (e.g. every 4 to 6 hours). This will help to keep your pain under better control. You should then begin to take fewer medications each day until you no longer need them. Do not consume more than 4000 milligrams (4 grams) of acetaminophen (Tylenol) or acetaminophen-containing products (Percocet, Vicodin, Lortab etc.) within a 24 hour time period to avoid damage to your liver. ACTIVITY: You are encouraged to return to your normal activities gradually as you feel able, however use pain as your guide to limit your activity. Walking is encouraged. You should refrain from lifting more than ten pounds for at least four weeks after surgery. OUTPATIENT FOLLOW UP Scheduled Appointments 03/28/2022 12:00 PM RST INTAKE VISIT POD A 01 Admitting/Central Scheduling 03/29/2022 10:30 AM [facility] 01 [facility] Neurology 03/29/2022 11:15 AM Elizabeth Omalley APRN, C.N.P., M.S.N. Neurology For appointment details refer to your Patient Appointment Guide. TEST RESULTS PENDING AT DISCHARGE Pending Labs None DETAILS OF HOSPITAL STAY REASON FOR ADMISSION Carpal Tunnel Syndrome Bilateral HOSPITAL COURSE On the day of admission, the patient was taken to the operative room by Dr. Solorzano for the procedure listed above. The intraoperative as well as the immediate postoperative course were uncomplicated. The patient was discharged from PACU after a period of observation and recovery. He was ambulating and tolerating an oral diet at the time of dismissal. He had optimal pain control on oral medications. His incision remained clean and intact. He then met criteria for dismissal and was discharged home. CONSULTS ORDERED DURING THIS ADMISSION None CONDITION AT DISCHARGE stable Discharge instructions were provided to the patient and caregiver(s). documented in this encounter Medications at Time of Discharge Medication Sig Dispensed Refills Start Date End Date acetaminophen (TYLENOL) Take 2 tablets 0 03/07/20 22 500 mg tablet (1,000 mg total) by mouth every 6 (six) hours as needed for pain for up to 4 days. aspirin 81 mg capsule Take 81 mg by mouth 0 03/09 daily. atorvastatin (LIPITOR) Take 1 tablet (40 mg 90 tablet 3 07/2018 40 mg tabletIndications: total) by mouth at Hyperlipidemia Mixed bedtime. BD Ultra-Fine Short Pen as directed 0 02/08/2022 Needle 31 gauge x 5/16 needle busPIRone (BUSPAR) 10 mg Take 10 mg by mouth 0 tablet daily. clotrimazole (LOTRIMIN) Apply 1 application 0 10/2020 1 % cream topically as needed. To affected area. Dexcom G6 Sensor device 0 05/18/2020 Dexcom G6 Transmitter 0 03/27/2020 device DME CPAPIndications: DME Order 1 Device 0 07/05/2020 Snoring, Apnea Sleep Obstructive ferrous sulfate 325 mg Take 65 mg of iron 0 08/31 (65 mg iron) tablet by mouth daily. with food FLUoxetine (PROzac) 20 Take 3 capsules by 0 10/24 mg capsule mouth daily. fluticasone propionate Administer 2 sprays 0 (FLONASE) 50 into each nostril 2 mcg/actuation nasal (two) times a day as spray needed. glucagon (Baqsimi) 3 Administer 1 spray 0 mg/actuation into nostril(s) as spray,non-aerosol directed. hydrocortisone 1 % Apply topically as 0 2 solution needed. hydrOXYzine (ATARAX) 25 Take 25 mg by mouth 0 mg tablet every 8 (eight) hours as needed. insulin aspart U-100 18 units before each 30 mL 5 07/19 (NovoLOG Flexpen U-100 meal 3 times daily. 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 injection ipratropium (ATROVENT) Administer 2 sprays 0 0.03 % nasal spray into each nostril 2 (two) times a day. Jardiance 25 mg tablet TAKE 1 TABLET(25 MG) 90 tablet 3 BY MOUTH EVERY MORNING BEFORE BREAKFAST ketoconazole (NIZORAL) 2 Apply 1 application 0 % shampoo topically 2 (two) times a week. levocetirizine (XYZAL) 5 Take 5 mg by mouth 0 mg tablet every evening. liraglutide (Victoza Inject 1.8 mg under 27 mL 3 2018 3-Brijesh) 0.6 mg/0.1 mL (18 the skin daily. mg/3 mL) injectionIndications: Diabetes Mellitus Type 2 Hyperglycemia (HCC) miscellaneous medical CPAP machine 0 01/05/2019 supply [facility] supplies naproxen (NAPROSYN) 500 Take 500 mg by mouth 0 mg tablet 2 (two) times a day as needed. Nystop 100,000 unit/gram Apply topically as 0 powder needed. omeprazole (PriLOSEC) 40 Take 40 mg by mouth [address] capsule daily. ONETOUCH VERIO strips Test blood glucose 8 720 strip 3 05/16 times per day valsartan (DIOVAN) 80 mg TAKE 1 TABLET (80 MG 90 tablet 3 0 10/20/2018 tabletIndications: TOTAL) BY MOUTH Hypertension Essential DAILY. Primary verapamiL (VERELAN) 120 Take 120 mg by mouth 0 mg 24 hr capsule every morning. cefadroxil (DURICEF) 500 Take 1 capsule (500 10 capsule 0 03/12/2022 mg capsule mg total) by mouth 2 (two) times a day for 5 days. nystatin (MYCOSTATIN) 1,000,000 Units as 0 201903/28/2022 100,000 unit/mL needed. suspension propranoloL (INDERAL) 40 Take 40 mg by mouth 0 03/29/2022 mg tablet 2 (two) times a day. SUMAtriptan (IMITREX) 50 Take 50 mg by mouth 0 06/03/2022 mg tablet as needed. May repeat dose once in 2 hours if migraine unresolved. Do not exceed 200 mg in 24 hours. documented as of this encounter H&P Notes Skip Wise M.D. - 03/07/2022 10:55 AM CDT INTERVAL HISTORY AND PHYSICAL PRE-PROCEDURE UPDATE H&P reviewed. The patient was examined and there are no significant changes to the H&P. Skip Wise M.D. Source Note - Luba Arias M.D. - 03/06/2022 10:30 AM CDT REASON FOR VISIT: Preoperative Medical Evaluation REFERRING PHYSICIAN: Mathieu Solorzano M.D. 03/07/2022: RELEASE CARPAL TUNNEL OPEN WRIST; Mathieu Solorzano M.D. Surgery Specific Risk Classification: Low Risk / Elevated Risk: Low Risk SUBJECTIVE HISTORY OF PRESENT ILLNESS Paul Murphy is a 51 y.o. male who is here for preanesthetic medical examination prior to carpal tunnel release. He has had bilateral hand pain and numbness/tingling for the last several years. He had a workup with Neurology which included EMG and cervical spine imaging. He was found to have severe cervical spine stenosis, particularly at C5/C6. He will have bilateral carpal tunnel repair an attempt to relieve his symptoms. If they persist after surgery, he may pursue cervical intervention. His other medical history includes migraines for which he receives Botox injections and takes verapamil, TYSON not compliant with CPAP, depression, diabetes with long-term insulin use (A1c 7.9), GERD, and obesity. The following portions of the patient's history were reviewed and updated as appropriate: allergies,current medications, medical history, social history, surgical history and problem list. REVIEW OF SYSTEMS Skin: Positive for change in mole or skin spot. Gastrointestinal: Positive for heartburn. Genitourinary: Positive for urgency. Hematologic: Positive for bruises or bleeds easily. Musculoskeletal: Positive for back pain. Neurological: Positive for loss of consciousness, headaches and weakness in arms or legs. Psychiatric/Behavioral: Positive for loud snoring, sleep disturbance, feeling down, depressed, or hopeless over past two weeks and feeling nervous, anxious, or on edge in past two weeks. The following systems were negative: Constitutional, Eyes, ENT, Respiratory, Cardiovascular DASI Calculations Flowsheet Row Comprehensive Visit from 03/06/2022 in [facility] Evaluation Center in [place], [place] Estimated V02 Peak 31.4 Estimated MET Level 8.97 OBJECTIVE OBJECTIVE PHYSICAL EXAMINATION General/Constitutional Constitutional Assessment: Obese General State of Health: Healthy appearing Airway (HEENT) Very large neck with full alfaro. Missing several teeth, both upper and lower Mallampati: IV TM Distance: >3 FB Neck ROM: Full Mouth Opening: > 3 cm Dental Assessment: Dentition in poor repair Cardiovascular Rhythm: Regular Rate: Normal Cardiovascular Assessment: Normal Pulmonary Pulmonary Assessment: Clear Neurological Neurologic Assessment: Alert and oriented X 3 Musculoskeletal MSK Assessment: Normal Gait: Normal Ambulate with: None Psychiatric Psychiatric Assessment: Calm Dermatology Skin Assessment: normal ASSESSMENT / PLAN Anesthesia: Patient denies previous anesthesia related complications. He is noncompliant with his CPAP and looks like he would have significant obstruction with sedation. He may very well be a challenging MAC. Stress Echo- Negative in 2018 for ischemia EKG 2018- NSR, normal EKG Airway Hx (aka airway management): -Glidescope intubation in 2016,easy mask #1 Preanesthetic Medical Exam -Acceptable risk for MAC, though the challenge will likely be attaining a plane of anesthesia which is adequate without obstruction #2 Carpal Tunnel Syndrome Bilateral #3 Depression Major One Episode Moderate (HCC) -Will continue buspar and Prozac tomorrow #4 Body Mass Index 50.0 To 59.9 Adult (HCC) -Body mass centrally located with redundant neck tissue #5 Diabetes Mellitus Type 2 Hyperglycemia (HCC) -Takes Lantus, Victoza, and as needed Novolog. Will take normal dose of Lantus tonight and hold the Victoza and Novolog. -Patient has a Dexcom which he uses to check sugars regularly #6 Hypertension Essential Primary -Will take Valsartan tomorrow #7 Apnea Sleep Obstructive -Noncompliant with CPAP #8 Migraine Headache -#9 Stenosis Spinal Cervical -No pain with neck extension, but would [place] if intubation is necessary Reviewed with patient the Checklist for Surgical Patients [id number]. Written and verbal instructions given on medication management before surgery. RECOMMENDATIONS: Patient medically optimized for planned procedure: Yes Further Recommendations: None Caprini Total Score: Caprini not calculated. VTE prophylaxis per surgery provider Luba Arias M.D. documented in this encounter OR Notes Op Note - Mathieu Solorzano M.D. - 03/07/2022 12:05 PM CDT PRE-OPERATIVE DIAGNOSIS Left carpal tunnel syndrome. POST-OPERATIVE DIAGNOSIS Left carpal tunnel syndrome. A press assistant and feeder actively participated and was necessary for one or more of the following: opening,exposure and visualization during the case, maintaining hemostasis, wound closure resulting in its safe and expeditious completion. PROCEDURE: Left carpal tunnel release. SURGEON: Mathieu Solorzano M.D. BEEF CATTLE SPECIALIST: Skip Wise M.D. OR: [facility] 15, room 6. ANESTHESIA: MAC plus 6 cc of 1% lidocaine. OPERATIVE NOTE NARRATIVE The patient was taken to the operating room and placed in the supine position. After adequate monitored anesthetic care was achieved, the left upper extremity was circumferentially prepped and draped in the usual sterile fashion. Approximately 6 cc of 1% lidocaine solution was used for local anesthesia. A 3- cm palmar incision was planned and then subsequently made using the standard topographical landmarks including Lea's cardinal line, the wrist crease, and the flexed ring finger. One of the palmar creases was utilized. The incision was deepened. Palmar aponeurosis was divided on its ulnar border. A small opening in the transverse carpal ligament was made, allowing a [place] elevator to be passed beneath the ligament. On the ulnar portion of the carpal tunnel, the transverse carpal ligament was resected until fat was seendistally. The proximal portion was released along with a portion of the antebrachial fascia under dir ect visualization. There was moderate tenosynovitis present. The nerve appeared abnormal with severecompression. The transverse carpal ligament was quite thick. There was no mass present. Tourniquet was deflated. Hemostasis was achieved. There was good gliding in the tendons. The nerve appeared well decompressed. There was good vascularity in the nerve. The wound was closed in anatomic layers with mattress sutures on the skin. A dry sterile compressive dressing was placed. A Volar splint was applied. The patient tolerated the procedure well and was taken from the operating room in stable condition. TPR: [address] CT Job ID: [id number] Brief Op Note - Skip Wise M.D. - 03/07/2022 11:36 AM CDT Pre-op Diagnosis Carpal Tunnel Syndrome Bilateral Post-op Diagnosis Carpal Tunnel Syndrome Bilateral Findings As expected. Complications None Skip Wise M.D. documented in this encounter Miscellaneous Notes Hospital Course - Skip Wise M.D. - 03/07/2022 7:38 AM CDT On the day of admission, the patient was taken to the operative room by Dr. Solorzano for the procedure listed above. The intraoperative as well as the immediate postoperative course were uncomplicated. The patient was discharged from PACU after a period of observation and recovery. He was ambulating and tolerating an oral diet at the time of dismissal. He had optimal pain control on oral medications. His incision remained clean and intact. He then met criteria for dismissal and was discharged home. documented in this encounter Plan of Treatment Upcoming Encounters Date Type Specialty Care Team Description 06/26/2022 Appointment Neurology Preet Landeros M.D . [address] [place] [phone] Bria Suh APRN, C.N.P., M.S.N. [address] [place] [phone] 07/25/2022 Appointment Radiology Preet Landeros M.D . [address] [place], [place] [phone] (Wo rk) documented as of this encounter Procedures Procedure Name Priority Date/Time Associated Diagnosis Comme nts GLUCOSE POCT, B Routine 03/07/2022 12:44 PM Resul ts for this CDT procedure are i n the results section. RELEASE CARPAL 03/07/2022 11:01 AM Carpal Tunnel TUNNEL OPEN WRIST CDT Syndrome Bilateral GLUCOSE POCT, B Routine 03/07/2022 10:33 AM Resul ts for this CDT procedure are i n the results section. documented in this encounter Results Glucose, POCT (03/07/2022 12:44 PM CDT) Analysis Performed At Patho logist Time Signature Glucose, POCT, 125 70 - 140 03/12/2022 PCMO B mg/dL 1:59 PM CDT Site Capillary 03/12/2022 PCMO 1:59 PM CDT Specimen Anatomical Collection Method Collection Time Receive d Time (Source) Location / / Volume Laterality Blood 03/07/2022 12:44 03/12/2022 2:00 PM CDT PM CDT Unknown Provider LAB POCT ORDERABLES-MANUAL Performing Organization Address City/[facility]/ZIP Code Phon e Number POC [facility] [address] [place] [address] [place] [address] [facility] P[facility] 200 [facility] (ABNORMAL) Glucose, POCT (03/07/2022 10:33 AM CDT) Analysis Performed At Patho logist Time Signature Glucose, POCT, 152 (H) 70 - 140 03/07/2022 PCMO B mg/dL 10:35 AM CDT Site Capillary 03/07/2022 PCMO 10:35 AM CDT Specimen Anatomical Collection Method Collection Time Receive d Time (Source) Location / / Volume Laterality Blood 03/07/2022 10:33 03/07/2022 AM CDT 10:35 AM CDT Unknown Provider LAB POCT ORDERABLES-MANUAL Performing Organization Address City/State/ZIP Code Phon e Number POC [facility] 200 [facility] [place] [place] [address] [facility] [place] [address] [facility]OC [address] documented in this encounter Visit Diagnoses Diagnosis Carpal Tunnel Syndrome Bilateral - Prima ry documented in this encounter Admitting Diagnoses Diagnosis Carpal Tunnel Syndrome Bilateral documented in this encounter Administered Medications Inactive Administered Medications - up to 3 most recent administrations Medication Order MAR Action Action Date Dose Rate Site acetaminophen tablet 1,000 mg Given 03/07/2022 11:04 AM CDT 1,00 0 mg (TYLENOL) 1,000 mg, oral, Once, On [place] 03/07/22 at 1045, For 1 dose, Pre-Op celecoxib capsule 400 mg (CeleBREX) Given 03/07/2022 11:04 AM CDT 400 mg 400 mg, oral, Once, On [place] 03/07/22 at 1045, For 1 dose, Pre-Op, Nursing instructions: 400mg if 65 years or younger and GFR greater than 50 mL/min 200mg if greater than 65 years old AND GFR greater than 50 mL/min lactated ringers Continued from OR 03/07/2022 12:35 PM 20 mL/hr 20 mL/hr 20 mL/hr, intravenous, CDT Continuous, Starting on [place] 03/07/22 at 1045 Restarted 03/07/2022 11:17 AM CDT New Bag 03/07/2022 11:05 AM CDT 20 mL/hr 20 mL/hr documented in this encounter Active and Recently Administered Medications Times are shown in CDT. Scheduled Medication Order 03/05/2022 03/06/2022 03/07/2022 acetaminophen tablet 1,000 mg (TYLENOL) (COMPLETED) 1104 (Given - Provider: Gretchen Moncada R.N.) 1,000 mg, oral, Once, On [place] 03/07/22 at 1045, For 1 dose, Pre-Op ceFAZolin injection 3,000 mg (ANCEF) (COMPLETED) 1130 (Given - Provider: Laura Welch APRN, MOTH PROOFER, DNAP) 3,000 mg (rounded from 3,500 mg = 25 mg/ kg ? 140 kg), intravenous, Once, On [place] 03/07/22 at 1030, For 1 dose, Intra-Op, Preoperatively within 1 hour prior to surgical incision If needed, reconstitute vi al per package insert instructions. See IVAG for administration guidelines. , Drug Monitoring Program: Pharmacist to adjust medication dosing based on indication and drug clearance factors., Indications: Prophylaxis, surgical celecoxib capsule 400 mg (CeleBREX) (COMPLETED) 1104 (Given - Provider: Gretchen Moncada R.N.) 400 mg, oral, Once, On [place] 03/07/22 at 10 45, For 1 dose, Pre-Op, Nursing instructions: 400mg if 65 years or younger and GFR greater than 50 mL/min 200mg if greater than 65 years old AND GFR greater than 50 mL/min lactated Ringer's bolus 1,000 mL 1045 (Due) 1,000 mL, intravenous, at 1,000 mL/hr, A dminister over 1 Hours, Once, On [place] 03/07/22 at 1045, For 1 dose, Pre-Op lidocaine 10 mg/mL (1 %) injection 1 mL (XYLOCAINE) 1045 (Due) 1 mL, infiltration, Once, On [place] 03/07/22 at 1045, For 1 dose, Pre-Op, May admin up to 1 mL at the site of IV site if not allergic to lidocaine Continuous Medication Order 03/05/2022 03/06/2022 03/07/2022 lactated ringers 1105 (New Bag - Provider: Gretchen Moncada R.N.)1116 (Paused - Provider: Laura Welch APRN, RUMA, DNABrooklynn - Comment: Switch to gravity)1117 (Restarted - Provider: Laura Welch APRN, RUMA, DNAP) 20 mL/hr, intravenous, Continuous, Starting on [place] 03/07/22 at 10 45 1217 (Anesthesia Volume Adjustment - Provider: Jet Garcia APRN, MOTH PROOFER)1235 (Continued from OR - Provider: Petra Khoury R.N.) PRN Medication Order 03/05/2022 03/06/2022 03/07/2022 fentaNYL injection 25 mcg (SUBLIMAZE) 25 mcg, intravenous, Every 2 min PRN, mo derate pain or score 4-6 of 10, severe pain or score 7-10 of 10, Starting on [place] 03/07/22 at 1236, PACU (only), Up to maximum total dose of 200 mcg fentaNYL injection 50 mcg (SUBLIMAZE) 50 mcg, intravenous, Every 2 min PRN, se dation, administer for preoperative sedation if performing a regional anesthetic technique, Starting on [place] 03/07/22 at 1039, Pre-Op, Up to maximum total dose of 200 mcg lidocaine 10 mg/mL (1 %) injection (XYLOCAINE) (CANCELED) 1156 (Given - Provider: Mathieu Solorzano M.D.) As needed, Starting on [place] 03/07/22 at 1156, Intra-Op meperidine (PF) injection 12.5 mg (DEMEROL) 12.5 mg, intravenous, Every 2 min PRN, s hivering, May repeat once, Starting on [place] 03/07/22 at 1236, For 2 doses, PACU (only), Restriction Criteria (Pharmacy will review and approve if criteria met): Pre vention or treatment of post-anesthesia shivering midazolam (PF) injection 1 mg (VERSED) 1 mg, intravenous, Every 2 min PRN, rosangela tion, administer for preoperative sedation if performing a regional anesthetic technique, Starting on [place] 03/07/22 at 1039, Pre-Op oxybutynin tablet 5 mg (DITROPAN) 5 mg, oral, Once as needed, If patient i s not required to void prior to dismissal, Starting on [place] 03/07/22 at 1236, For 1 dose, PACU (only) documented in this encounter Additional Health Concerns Assessment Noted Time PHQ-9 Depression Total Score: 12 02/01/2021 9:43 AM CD T documented as of this encounter Care Teams Director Of Therapy Services Relationship Specialty Start Date End Date Elsewhere, Pcp PCP - General Family Medicine 08/11/19 documented as of this encounter
--- OUTSIDE RECORDS SUMMARY | 2022-06-23 22:39 | XMS_ITS | Encounter Summary ---
:1970 Author Organization [facility] Address [address] [place] [address] Care Team Providers Name Role Phone Elsewhere, Pcp Primary Care Provider Unavailable Reason for Visit Auth/Cert Specialty Diagnoses / Procedures Referred By Contact Refer red To Contact Diagnoses Carpal Tunnel Syndrome Bilateral Procedures [place] [facility] CARP TUNL RELEASE CARPAL TUNNEL OPEN WRIST Referral ID Status Reason Start Date Expiration Date Visits Requ ested Visits Authorized [id number] 1 1 Encounter Details Date Type Department Care Team Description 03/07/2022 Surgery Outpatient Procedure Mathieu Solorzano R ELEASE CARPAL TUNNEL Center in [place] OPEN WRIST. [place] [address] [facility] [address] [place] [phone] Social History Tobacco Use Types Packs/Day Years [...] or relatives? How often do you attend hinduism or More than 4 times per year 06/02/2022 nondenominational services? Do you belong to any clubs or Yes 06/02/2022 organizations such as hinduism groups, unions, fraternal or athletic groups, or [...] Sign Reading Time Taken Comments Blood Pressure 128/72 03/07/2022 12:28 PM CDT Pulse 62 03/07/2022 12:28 PM CDT Temperature 36.5 ??C (97.7 ??F) 03/07/2022 12:28 PM CDT Respiratory Rate 13 03/07/2022 12:28 PM CDT Oxygen Saturation 97% 03/07/2022 12:28 PM CDT Inhaled Oxygen Concentration - - Weight 140 kg (309 lb 1.4 oz) 03/07/2022 10:39 AM CDT Height 165.1 cm (5' 5) 03/07/2022 10:39 AM CDT Body Mass Index 51.43 03/07/2022 10:39 AM CDT documented in this encounter Discharge Summaries Skip Wise M.D. - 03/07/2022 10:57 AM CDT DISCHARGE SUMMARY BRIEF OVERVIEW Hospital: [facility] Discharge Provider: Mathieu Solorzano M.D. Primary Care [...] WRIST. Mathieu Solorzano M.D.Peters, Pierce A, M.D. [facility] RO[facility]15 OR DISCHARGE DISPOSITION Home or [...] Primary Care Provider, or a member of [facility]. You are welcome to call [...] 10:30 AM [facility] 01 [facility] Neurology 03/29/2022 11:15 AM Elizabeth Omalley, BRET, C.N.P., M.S.N. Neurology For appointment details refer [...] injectionIndications: Diabetes Mellitus Type 2 Hyperglycemia (HCC), Intermediate Use Of Insulin Active (HCC) insulin glargine [...] miscellaneous medical CPAP machine 0 01/05/2019 supply [employer] supplies naproxen (NAPROSYN) 500 Take 500 mg [...] from 03/06/2022 in Preoperative Evaluation Center in [place], [place] Estimated V02 Peak 31.4 Estimated MET [...] -No pain with neck extension, but would [place] if intubation is necessary Reviewed with patient the Checklist for Surgical Patients [id number]. Written and verbal instructions given on medication [...] POST-OPERATIVE DIAGNOSIS Left carpal tunnel syndrome. A advertising assistant manager actively participated and was necessary for one or more of the following: opening,exposure and visualization during the case, maintaining hemostasis, wound closure resulting in its safe and expeditious completion. PROCEDURE: Left carpal tunnel release. SURGEON: Mathieu Solorzano M.D. MANAGER TEST: Skip Wise M.D. OR: [facility] 15, room 6. ANESTHESIA: MAC plus 6 [...] transverse carpal ligament was made, allowing a [place] elevator to be passed beneath the ligament. [...] Mathieu Solorzano M.D. CT CT Job ID: [id number] Brief Op Note - Skip Wise M.D. [...] Appointment Neurology Preet Landeros M.D . [address] [place] [phone] Bria Suh APRN, C.N.P., M.S.N. [address] [place] [phone] 07/25/2022 Appointment Radiology Preet Landeros M.D . [address] [place], [place] [phone] (Wo rk) documented as [...] Provider LAB POCT ORDERABLES-MANUAL Performing Organization Address City/[facility]/ZIP Code Phon e Number POC [facility] 200 [place] [address] OUTPATIENT LABS PCMO [facility] [place] [address] [facility] 200 [facility] (ABNORMAL) Glucose, POCT (03/07/2022 10:33 AM [...] City/State/ZIP Code Phon e Number POC RST [facility]TH[facility]OX [address] [place] [address] [facility] [place] [address] [place] [facility] [address] documented in this encounter Visit Diagnoses Diagnosis Carpal Tunnel Syndrome Bilateral - Prima ry Carpal Tunnel Syndrome Bilateral documented in this encounter Admitting Diagnoses Diagnosis [...] AM CDT 20 mL/hr 20 mL/hr lidocaine 10 mg/mL (1 %) injection Given 03/07/2022 11:56 AM CDT 6 mL Left Wrist (XYLOCAINE) As needed, Starting on [place] 03/07/22 at 1156, Intra-Op documented in this encounter Active and Recently Administered Medications Times are shown in CDT. Scheduled Medication Order 03/05/2022 03/06/2022 03/07/2022 acetaminophen tablet 1,000 mg (TYLENOL) (COMPLETED) 1104 (Given - Provider: Gretchen Moncada R.N.) 1,000 mg, oral, Once, On [place] 03/07/22 at 1045, For 1 dose, Pre-Op ceFAZolin injection 3,000 mg (ANCEF) (COMPLETED) 1130 (Given - Provider: Laura Welch APRN, MARINATOR, DNAP) 3,000 mg (rounded from 3,500 mg [...] 1105 (New Bag - Provider: Gretchen Moncada RNaman)1116 (Paused - Provider: Laura Welch APRN, RUMA, DNABrooklynn - Comment: Switch to gravity)1117 (Restarted - Provider: Laura Welch APRN, RUMA, DNAP) 20 mL/hr, intravenous, Continuous, Starting on [place] 03/07/22 at 10 45 1217 (Anesthesia Volume Adjustment - Provider: Jet Garcia APRN, RUMA)1235 (Continued from OR - Provider: Petra Khoury [...] documented as of this encounter Care Teams Product Development Consultant Relationship Specialty Start Date End Date Elsewhere, Pcp PCP - General Family Medicine 08/11/19 documented as of this encounter
--- OUTSIDE RECORDS SUMMARY | 2022-06-23 22:39 | XMS_ITS | Encounter Summary ---
:1970 Author Organization [facility] Address [address] [place] [address] Care Team Providers Name Role Phone Elsewhere, Pcp Primary Care Provider Unavailable Encounter Details Date Type Department Care Team Description 03/29/2022 Orders Only Department of Kiran Guido (Primary Ophthalmology in [place], M[place]onica. Dx) [place], [place] [address] [facility] [address] [place] [phone] Social History Tobacco Use Types Packs/Day Years [...] or relatives? How often do you attend muslim or More than 4 times per year 06/02/2022 voodoo services? Do you belong to any clubs or Yes 06/02/2022 organizations such as muslim groups, unions, fraternal or athletic groups, or [...] place to sleep or slept in a fci (including now)? Education Answer Date Recorded What [...] Appointment Neurology Preet Landeros M.D . [address] [place] [phone] Bria Suh APRN, C.N.P., M.S.N. [address] [place] [phone] 07/25/2022 Appointment Radiology Preet Landeros M.D . [address] [place] [phone] (Wo rk) documented as of this encounter Results Fundus Photos - OU - Both Eyes (06/04/2022 2:17 PM CDT) Specimen (Source) Anatomical Location Collection Method / Collectio n Time Received Time / Laterality Volume Narrative OPHTHALMOLOGY IMAGING EXAM - 06/04/20 22 3:46 PM CDT Right Eye Fundus photo type obtained is Color. Left Eye Fundus photo type obtained is Color. Notes The interpretation report for this test can be found in the Testing section of the chart note dated 2 Kiran Guido M.D. OPHTH PHOTOGRAPHY Performing Organization Address [facility] Code Phon e Number OPHTHALMOLOGY IMAGING EXAM Optical Coherence Tomography - Optic Nerve - OU - Both Eyes (06/04/2022 2:17 PM CDT) Specimen (Source) Anatomical Location Collection Method / Collectio n Time Received Time / Laterality Volume Narrative OPHTHALMOLOGY IMAGING EXAM - 06/04/20 3:46 PM CDT OCT device used was [employer] . Right Eye Reliability was good. Left Eye Reliability was good. Notes The interpretation report for this test can be found in the Testing section of the chart note dated 2 Kiran Guido M.D. OPHTH TOMOGRAPHY Performing Organization Address [facility] Phon e Number OPHTHALMOLOGY IMAGING EXAM Automated VF - Extended - OU - [...] M.D. OPHTH VISUAL FIELD Performing Organization Address [facility] Phon e Number OPHTHALMOLOGY IMAGING EXAM documented in this encounter Visit Diagnoses Diagnosis Papilledema - Primary Papilledema Papilledema Papilledema documented in this encounter Additional Health Concerns Assessment Noted Time PHQ-9 Depression Total Score: 8 03/29/2022 10:47 AM CD T documented as of this encounter Care Teams Healthcare Advisory Services Manager Relationship Specialty Start Date End Date Elsewhere, Pcp PCP - General Family Medicine 08/11/19 documented as of this encounter
--- OUTSIDE RECORDS SUMMARY | 2022-06-23 22:39 | XMS_ITS | Encounter Summary ---
:1970 Author Organization [facility] Address [address] [place] [address] Care Team Providers Name Role Phone Elsewhere, Pcp Primary Care Provider Unavailable Encounter Details Date Type Department Care Team Description 06/04/2022 Ancillary Procedure Department of Kiran Guido Ophthalmology sami Coronado M.D. [place], [place] [address] [place] [address] [address] [place] [phone] Social History Tobacco Use Types Packs/Day Years [...] or relatives? How often do you attend advent or More than 4 times per year 06/02/2022 amish services? Do you belong to any clubs or Yes 06/02/2022 organizations such as advent groups, unions, fraternal or athletic groups, or [...] place to sleep or slept in a custodial (including now)? Education Answer Date Recorded What [...] Neurology Preet Landeros M.D . [address] [place] [phone] Bria Suh APRN, C.N.P., M.S.N. [address] [place] [phone] 07/25/2022 Appointment Radiology Preet Landeros M.D . [address] [place] [phone] (Wo rk) documented as of this encounter Procedures Procedure Name Priority Date/Time Associated Diagnosis Comme nts FUNDUS PHOTOS - OU Routine 06/04/2022 2:17 PM Papilledema Res ults for this - BOTH EYES CDT procedure are i n the results section. documented in this encounter Results Fundus Photos - OU [...] Guido M.D. OPHTH PHOTOGRAPHY Performing Organization Address City/State/ZIP Code Phon e Number OPHTHALMOLOGY IMAGING EXAM documented in this encounter Visit Diagnoses Diagnosis Papilledema documented in this encounter Additional Health Concerns Assessment Noted Time PHQ-9 Depression Total Score: 8 03/29/2022 10:47 AM CD T documented as of this encounter Care Teams Thermospray Operator Relationship Specialty Start Date End Date Elsewhere, Pcp PCP - General Family Medicine 08/11/19 documented as of this encounter
--- OUTSIDE RECORDS SUMMARY | 2022-06-23 22:39 | XMS_ITS | Encounter Summary ---
:1970 Author Organization [facility] Address [address] [place] [address] Care Team Providers Name Role Phone Elsewhere, Pcp Primary Care Provider Unavailable Encounter Details Date Type Department Care Team Description 06/03/2022 Clinical Communication Department of Neurology Preet Landeros, in [facility] nadeen Pavon [address] [facility] [address] [place] [phone] Social History Tobacco Use Types Packs/Day Years [...] More than 4 times per year 06/02/2022 zoroastrian services? Do you belong to any clubs [...] place to sleep or slept in a residential (including now)? Education Answer Date Recorded What [...] Appointment Neurology Preet Landeros M.D . [address] [place] [phone] Bria Suh APRN, C.N.P., M.S.N. [address] [place] [phone] 07/25/2022 Appointment Radiology Preet Landeros M.D . [address] [place] [phone] (Wo rk) documented as of this encounter Visit Diagnoses Not on filedocumented in this encounter Additional Health Concerns Assessment Noted Time PHQ-9 Depression Total Score: 8 03/29/2022 10:47 AM CD T documented as of this encounter Care Teams Padding Machine Operator Relationship Specialty Start Date End Date Elsewhere, Pcp PCP - General Family Medicine 08/11/19 documented as of this encounter
--- OUTSIDE RECORDS SUMMARY | 2022-06-23 22:39 | XMS_ITS | Encounter Summary ---
:1970 Author Organization [facility] Address [address] [place] [address] Care Team Providers Name Role Phone Elsewhere, Pcp Primary Care Provider Unavailable Reason for Referral Outpatient (Routine) - Pending Review Specialty Diagnoses / Procedures Referred By Contact Refer red To Contact Diagnoses Aftercare Suture Removal Non-Injury Jordana Malave APRN, C.N.P. Procedures Suture Removal [address] [place] [address] Referral ID Status Reason Start Date Expiration Date Visits V isits Requested Authorized [id number] Pending 03/22/2022 03/22/2023 1 1 Review Reason for Visit Appointment Request (Routine) - Closed Specialty Diagnoses / Procedures Referred By Contact Refer red To Contact Family Medicine Referral ID Status Reason Start Date Expiration Date Visits Requ ested Visits Authorized [id number] Closed 03/22/2022 03/22/2023 1 1 Encounter Details Date Type Department Care Team Description 03/22/2022 Office Visit Department of Flores King Af terjaqueline Suture Medicine, Juwan Garza Removal Non-Injury Clinic, in [place], (Prima ry Dx) [place] (Work) [address] [place] [address] Social History Tobacco Use Types Packs/Day Years [...] or relatives? How often do you attend baptist or More than 4 times per year 06/02/2022 anabaptist services? Do you belong to any clubs or Yes 06/02/2022 organizations such as baptist groups, unions, fraternal or athletic groups, or [...] place to sleep or slept in a senior living (including now)? Education Answer Date Recorded What is the highest level of school Associate degree: anthony pretty, 05/17/2020 you have completed or the highest technical, or vocational p rogram degree you have received? Sex Assigned at Date Recorded Male 01/30/2018 9:28 AM CDT documented as of this encounter Procedure Notes Flores Harris R.N. - 03/22/2022 4:15 PM CDTAssociated Order(s): Suture Removal Pre-Procedure Diagnose(s): Aftercare Suture Removal Non-Injury Post-Procedure Diagnose(s): Aftercare Suture Removal Non-Injury Suture Removal Date/Time: 03/22/2022 4:44 PM Performed by: Flores Harris R.N. Authorized by: Jordana Malave APRN, C.N.PBon Care team members present 1. Flores Harris R.N. 2. Briana Sauer R.N. 3. Dominique Ahn L.P.N. PROCEDURE DETAILS Wound appearance: No signs of infection and good wound healing Number of sutures removed: 8 CONSENT Consent obtained: verbal Consent given by: patient The benefits, risks and alternatives to the procedure and the potential need for sedation or anesthesia as well as the names, roles, and responsibilities of healthcare team members performing significant interventional tasks were discussed with the patient and/or decision maker. UNIVERSAL PROTOCOL All relevant documentation and testing were reviewed and available. All required blood products, implants, devices and or special equipment were made available as applicable. Pre-procedure verificationwas conducted and the correct site was marked if required. A fire risk assessment was done as applicable. The procedural time-out to verify correct patient, correct side/site, and procedure was conducted prior to performing the procedure and confirmed in a procedural pause. PRE PROCEDURE DETAILS Sutures were placed at [facility] facility: yes Indicaton: scheduled suture removal Location: Upper extremity Upper extremity location: Hand Hand location: Left hand SEDATION / ANESTHESIA Anesthesia method: none POST PROCEDURE DETAILS Procedure completed successfully: yes Complications: bleeding Complications comment: Scant ammount of bleeding from one suture Post-removal: Steri-Strips applied (Steri strips applied due to previous placement of sutures) documented in this encounter Plan of Treatment Upcoming Encounters Date Type Specialty Care Team Description 06/26/2022 Appointment Neurology Preet Landeros M.D . [address] [place] [phone] Bria Suh APRN, C.N.P., M.S.N. [address] [place] [phone] 07/25/2022 Appointment Radiology Preet Landeros M.D . [address] [place] [phone] (Wo rk) documented as of this encounter Procedures Procedure Name Priority Date/Time Associated Diagnosis Comme nts SUTURE REMOVAL Routine 03/22/2022 4:44 PM Aftercare Suture Res ults for this CDT Removal Non-Injury procedure are in the results section . documented in this encounter Results SUTURE REMOVAL (03/22/2022 4:44 PM CDT) Narrative MMODAL - 03/22/2022 4:44 PM CDT Flores Harris R.N. ? 03/22/2022 ??4:50 PM Suture Removal Date/Time: 03/22/2022 4:44 PM Performed by: Flores Harris R.N. Authorized by: Jordana Malave APRN, C.N.P . Care team members present 1. Flores Harris R.N. 2. Briana Sauer R.N. 3. Dominique Ahn, Vneu.PBonNBon PROCEDURE DETAILS Wound appearance: ??No signs of infectio n and good wound healing Number of sutures removed: ??8 CONSENT Consent obtained: verbal Consent given by: patient The benefits, risks and alternatives to the procedure and the potential need for sedation or anesthesia as well as the names, roles, and responsibilities of healthcare team memb ers performing significant interventional tasks were discussed with the patient and/or decision maker. UNIVERSAL PROTOCOL All relevant documentation and testing [...] procedure and confirmed in a procedural pause. PRE PROCEDURE DETAILS Sutures were placed at [facility]: ye s ?? Indicaton: scheduled suture removal ?? Location: ??Upper extremity Upper extremity location: ??Hand Hand location: ??Left hand SEDATION / ANESTHESIA Anesthesia method: none POST PROCEDURE DETAILS Procedure completed successfully: yes ?? Complications: bleeding ?? Complications comment: ??Scant ammount o f bleeding from one suture Post-removal: ??Steri-Strips applied (St cris strips applied due to previous placement of sutures) Jordana Malave APRN, C.N.P. PROCEDURE/MINOR SURGICAL ORD ERABLES Performing Organization Address City/State/ZIP Code Phon e Number MMODAL MMODAL NA documented in this encounter Visit Diagnoses Diagnosis Aftercare Suture Removal Non-Injury - Pr imary documented in this encounter Additional Health Concerns Assessment Noted Time PHQ-9 Depression Total Score: 12 02/01/2021 9:43 AM CD T documented as of this encounter Care Teams Tattooer Relationship Specialty Start Date End Date Elsewhere, Pcp PCP - General Family Medicine 08/11/19 documented as of this encounter
--- OUTSIDE RECORDS SUMMARY | 2022-06-23 22:39 | XMS_ITS | Encounter Summary ---
:1970 Author Organization [facility] Address [address] [place] [address] Care Team Providers Name Role Phone Elsewhere, Pcp Primary Care Provider Unavailable Encounter Details Date Type Department Care Team Description 06/04/2022 Ancillary Procedure Department of Kiran Guido Ophthalmology sami Coronado M.D. [place], [place] [address] [place] [address] [address] [place] [phone] Social History Tobacco Use Types Packs/Day Years [...] or relatives? How often do you attend pentecostalism or More than 4 times per year 06/02/2022 amish services? Do you belong to any clubs or Yes 06/02/2022 organizations such as pentecostalism groups, unions, fraternal or athletic groups, or [...] place to sleep or slept in a skilled nursing (including now)? Education Answer Date Recorded What [...] Neurology Preet Landeros M.D . [address] [place] [phone] Bria Suh APRN, C.N.P., M.S.N. [address] [place] [phone] 07/25/2022 Appointment Radiology Preet Landeros M.D . [address] [place] [phone] (Wo rk) documented as of this encounter Procedures Procedure Name Priority Date/Time Associated Diagnosis Comme nts AUTOMATED VF - Routine 06/04/2022 1:03 PM Papilledema Results for this EXTENDED - OU - CDT procedure ar e in BOTH EYES the results section. documented in this encounter Results Automated VF - Extended - OU - Both Eyes (06/04/2022 1:03 PM CDT) Specimen (Source) Anatomical Location Collection Method / Collectio n Time Received Time / Laterality Volume Narrative OPHTHALMOLOGY IMAGING EXAM - 06/04/20 22 3:46 PM CDT Right Eye Automated visual [...] M.D. OPHTH VISUAL FIELD Performing Organization Address City/State/ZIP Code Phon e Number OPHTHALMOLOGY IMAGING EXAM documented in this encounter Visit Diagnoses Diagnosis Papilledema documented in this encounter Additional Health Concerns Assessment Noted Time PHQ-9 Depression Total Score: 8 03/29/2022 10:47 AM CD T documented as of this encounter Care Teams Site Interpreter Relationship Specialty Start Date End Date Elsewhere, Pcp PCP - General Family Medicine 08/11/19 documented as of this encounter
--- OUTSIDE RECORDS SUMMARY | 2022-06-23 22:39 | XMS_ITS | Encounter Summary ---
:1970 [facility] Address [address] [place] [address] Care Team Providers Name Role Phone Elsewhere, Pcp Primary Care Provider Unavailable Reason for Referral MRI/CAT/PET Scan (Routine) - Pending Review Specialty Diagnoses / Procedures Referred By Contact Refer red To Contact Radiology Diagnoses Sukhjinderllsmiley Neurological (HCC) Preet Landeros M.D. [facility] Procedures MR Neck Angiogram without and with IV Contrast [address] [place], [place] [address] Referral ID Status Reason Start Date Expiration Date Visits V isits Requested Authorized [id number] Pending 06/03/2022 06/03/2023 1 1 Review RI/CAT/PET Scan (Routine) - Pending Review Specialty Diagnoses / Procedures Referred By Contact Refer red To Contact Radiology Diagnoses Ralf Neurological (HCC) Preet Landeros M.D. [facility] Procedures MR Brain Angiogram without and with IV Contrast [address] [place] [address] Referral ID Status Reason Start Date Expiration Date Visits V isits Requested Authorized [id number] Pending 06/03/2022 06/03/2023 1 1 Review RI/CAT/PET Scan (Routine) - Pending Review Specialty Diagnoses / Procedures Referred By Contact Refer red To Contact Radiology Diagnoses Ralf Neurological ([facility]) Preet Landeros M.D. [facility] Procedures MR Brain without and with IV Contrast [address] [place] [address] Referral ID Status Reason Start Date Expiration Date Visits V isits Requested Authorized [id number] Pending 06/03/2022 06/03/2023 1 1 Review Reason for Visit Outpatient (Routine) - Closed Specialty Diagnoses / Procedures Referred By Contact Refer red To Contact Neurology Jeanie Barriga M.D. Garza, Ivan, M.D. [address] [facility] [address] [place] [phone] [place] [address] Fax: Referral ID Status Reason Start Date Expiration Date Visits Requ ested Visits Authorized [id number] Closed 02/04/2022 02/04/2023 1 1 Encounter Details Date Type Department Care Team Description 06/03/2022 Office Visit Department of Preet Landeros, Tyler Schrader (P soco Dx); Neurology in [place] ([facility]); [place], [place] [address] [facility] Migraine Headache; [address] [place], [place] Carpal Tunnel Syndrome Bilat eral; [place] [address] Apnea Sleep Obstructive [id number] Social History Tobacco Use Types Packs/Day Years [...] or relatives? How often do you attend methodist or More than 4 times per year 06/02/2022 mormon services? Do you belong to any clubs or Yes 06/02/2022 organizations such as methodist groups, unions, fraternal or athletic groups, or [...] Pulse 71 06/03/2022 11:03 AM CDT Temperature - - Respiratory Rate - - Oxygen Saturation - - Inhaled Oxygen Concentration - - Weight 142 kg (313 lb 11.4 oz) 06/03/2022 11:03 AM CDT Height 164.9 cm (5' 4.92) 06/03/2022 11:03 AM CDT Body Mass Index 52.33 06/03/2022 11:03 AM CDT documented in this encounter Progress Notes Preet Landeros M.D. - 06/03/2022 11:00 AM CDT SUBJECTIVE Chief Complaint: Follow-up on cervical stenosis at the request of Dr. Barriga. HPI:Paul Murphy returns today for follow-up. He has a history of cervical stenosis, last time he had cervical spine MRI was done October 06, 2021 which showed IMPRESSION: Advanced spinal canal stenosis at C5-6 with moderate to advanced right neural foraminal stenosis. No cord signal abnormality.. He continues to have some neck pain and was in the recent past evaluated by Dr. Barriga in our Department of Neurosurgery. He was found to have bilateral carpal tunnel syndromehas suspected cause of bilateral hand pain. He had left carpal tunnel release done by Dr. Solorzano since I last saw him and this has greatly decrease his left-sided hand pain but he continues to have right-sided hand pain. He is working with Dr. Solorzano to consider right carpal tunnel release. He denies any bowel incontinence but has urinary urgency. He denies Lhermitte's phenomenon. He has been having some episodes of transient left face/arm/leg weakness in the last year and those happen once or twice per month lasting 10-15 minutes at a time and those can occur with or without headache and with orwithout seeing black spots for 10-15 minutes. This has raised concern for hemiplegic migraine. From the headache standpoint, however, he is doing very well having only about 4 headache days per month on Botox injections and other recommendations from my colleagues Elizabeth Omalley in our headache clinic. In February 2022 he had an episode that was described by his . She noted he was sitting in a chair and the chair broke leading him to fall to the floor. He was laying on the ground conscious but then his found him in the floor unconscious for about 10 minutes. When he woke up he could not talk, had word- finding difficulties even though he could text and the speaking difficulties lasted for about24 hours. There were no convulsions, intraoral trauma or incontinence. During the evaluation at an outside hospital for this episode he had a brain MRI February 23, 2022 which showed a partial empty sella and nonspecific white matter changes but no clear cause for his symptoms. His episode was evaluated and no clear cause was found. This episode has not recurred. He reports memory difficulties that we previously evaluated but they have been worse since his episode February 2022. Neuropsychological testing November 22, 2020 suggested cognitive difficulties could be occurring on the basis of depression and anxiety and he has been seen by Psychiatry for this in the past. OBJECTIVE EXAM: He was able to give a detailed history. Cranial nerve exam was normal. Specifically, I am not convinced he has papilledema. He had give-way weakness in the left thenar and hypothenar muscles but he complained about pain performing these tasks so this might be more pain related than true weakness. Otherwise no focal weakness elsewhere. Normal muscle tone throughout. Deep tendon reflexes were normal throughout with the exception of ankle responses that were -1 bilaterally. No Babinski signs. Coordination exam was normal in upper and lower extremities. Normal joint position sense and superficialpain sensation throughout. Tandem gait was mildly impaired (-1). No Romberg. ASSESSMENT / PLAN #1 Advanced spinal canal stenosis at C5-6 with moderate to advanced right neural foraminal stenosis Objectively there is no myelopathy on neurologic examination. He is scheduled to follow-up with Dr. Barriga in our Department of Neurosurgery later today. I briefly discussed his case with him. #2 Chronic migraine with aura (visual), improved on prophylaxis He is doing very well with a lot less headaches while on Botox and other interventions under the care of my colleague Elizabeth Omalley APRN, C.N.P., M.S.N. in our headache clinic. He will continue tofollow with her. I agree with her recommendation to discontinue triptans in view of reported episodes of transient left hemiparesis and concern for hemiplegic migraine. He expressed understanding. #3 Severe obstructive sleep apnea Management per my colleagues in the Sleep Clinic. #4 Depression and anxiety Management per my colleagues in Psychiatry. #5 Left carpal tunnel syndrome status post surgical release #6 Right-sided carpal tunnel syndrome He will continue recommendations from Dr. Solorzano in our Department of Neurosurgery, I appreciate his evaluation and management. #7 Indeterminate episode of transient loss of consciousness February 2022 Evaluation elsewhere was negative for a clear cause. I think for the time being we can observe. I did ask him, however, that if this episode recurs he should get evaluated by his primary care provider and by Neurology whether it is locally or here. He expressed understanding. #8 Partial empty sella per outside brain MRI #9 Visual disturbances Although he has reported partial empty sella on outside brain MRI on funduscopic exam I am not convinced he has papilledema. I do not suspect he has intracranial hypertension. In view of episodic transient visual disturbances, however, I agree with the current plan to have him evaluated in Neuro-Ophthalmology. Possibly the visual disturbances could be occurring on the basis of migraine aura. #10 Indeterminate spells of left-sided hemiparesis These have not been properly evaluated. Certainly hemiplegic migraine could explain them but other possible causes such as cerebrovascular disease have to be excluded. He has not gotten MRA head and neck and I have recommended to do this. I do not have his outside brain MRI so he will need an updated 1 to rule out cerebral ischemic infarctions. If all would be unrevealing I would suspect that indeed he might have hemiplegic migraine in which case he will continue to manage those in our headache clinic under the guidance of Elizabeth Omalley APRN, C.N.P., M.S.N. As above, I have asked him not to use triptans. #11 Memory difficulties I have recommended routine blood work. In the past neuropsychological testing suggested his cognitive difficulties were occurring on the basis of anxiety and depression. I asked him to continue to workwith the Psychiatry. PATIENT EDUCATION Ready to learn, no apparent learning barriers were identified; learning preferences include listening. Explained diagnosis and treatment plan; patient expressed understanding of the content. documented in this encounter Plan of Treatment Upcoming Encounters Date Type Specialty Care Team Description 06/26/2022 Appointment Neurology Preet Landeros M.D . [address] [place] [phone] Bria Suh APRN, C.N.P., M.S.N. [address] [place] [address] 07/25/2022 Appointment Radiology Preet Landeros M.D . [address] [place], [place] [phone] (Wo rk) Scheduled Orders Name Type Priority Associated Diagnoses Order S chedule MR Brain without Imaging RAD - Routine (most Spells Neurologic al Expected: and with IV inpatients and all (HCC) Contrast outpatients) (Approximate), Expires: 06/03/2023 MR Brain Angiogram Imaging RAD - Routine (most Spells Neurolog ical Expected: without and with IV inpatients and all (HCC) Contrast outpatients) (Approximate), Expires: 06/03/2023 MR Neck Angiogram Imaging RAD - Routine (most Spells Neurologi andrew Expected: without and with IV inpatients and all (HCC) Contrast outpatients) (Approximate), Expires: 06/03/2023 documented as of this encounter Results Comprehensive Metabolic Panel (06/04/2022 10:24 AM CDT) athologist Signature Potassium, S 4.4 3.6 - [...] Organization Address City/State/ZIP Code Phon e Number [facility] - [address] [place] [phone] [facility] [place] [address] Laboratories-[facility] 200 [facility] (ABNORMAL) CBC with Differential, Blood (06/04/2022 10:24 AM CDT) [facility] Method Time Signature Hemoglobin 15.1 13.2 - [...] 06/04/2022 Venous) AM CDT 10:49 AM CDT Authorizing Provider Result Paul Landeros M.D. LAB BLOOD ADD-ON Performing Organization Address City/[facility] Phon e Number [facility] - [address] Thyroid Function Tatamy (06/04/2022 10:24 AM CDT) athologist Signature TSH, Sensitive 0.8 0.3 - 4.2 06/04/2022 DTL mIU/L 12:12 PM CDT Specimen Anatomical Collection Method Collection Time Receive d Time (Source) Location / / Volume Laterality Blood (Blood, 06/04/2022 10:24 06/04/2022 Venous) AM CDT 11:44 AM CDT Authorizing Provider Result Paul Landeros M.D. LAB BLOOD ADD-ON Performing Organization Address City/[facility] Phon e Number [facility] - [address] Pernicious Anemia Tatamy (06/04/2022 10:24 AM CDT) athologist Signature Vitamin B12 342 180 - 914 06/04/2022 SDSC Assay, S ng/L 3:51 PM CDT Comment: B-12 <400; MMA test was perform ed. Specimen Anatomical Collection Method Collection Time Receive d Time (Source) Location / / Volume Laterality Blood (Blood, 06/04/2022 10:24 06/04/2022 2:12 Venous) AM CDT PM CDT Authorizing Provider Result Paul Landeros M.D. LAB BLOOD NON ADD-ON Performing Organization Address City/State/ZIP Code Phon e Number [facility] [address] [place] [phone] SUPPORT [facility] [place] [id number] [place] [address] [place] documented in this encounter Visit Diagnoses Diagnosis Loss Memory - Primary Spells Neurological (HCC) Migraine Headache Carpal Tunnel Syndrome Bilateral Apnea Sleep Obstructive documented in this encounter Additional Health Concerns Assessment Noted Time PHQ-9 Depression Total Score: 8 03/29/2022 10:47 AM CD T documented as of this encounter Care Teams Hydrography Teacher Relationship Specialty Start Date End Date Elsewhere, Pcp PCP - General Family Medicine 08/11/19 documented as of this encounter
--- OUTSIDE RECORDS SUMMARY | 2022-06-23 22:39 | XMS_ITS | Encounter Summary ---
:1970 Author Organization [facility] Address [address] [place] [address] Care Team Providers Name Role Phone Elsewhere, Pcp Primary Care Provider Unavailable Encounter Details Date Type Department Care Team Description 06/04/2022 Ancillary Procedure Department of Kiran Guido Ophthalmology sami Coronado M.D. [place], [place] [address] [place] [address] [address] [place] [phone] Social History Tobacco Use Types Packs/Day Years [...] or relatives? How often do you attend cheondoism or More than 4 times per year 06/02/2022 yazidi services? Do you belong to any clubs or Yes 06/02/2022 organizations such as cheondoism groups, unions, fraternal or athletic groups, or [...] place to sleep or slept in a prison (including now)? Education Answer Date Recorded What [...] Neurology Preet Landeros M.D . [address] [place] [phone] Bria Suh APRN, C.N.P., M.S.N. [address] [place] [phone] 07/25/2022 Appointment Radiology Preet Landeros M.D . [address] [place] [phone] (Wo rk) documented as of this encounter Procedures Procedure Name Priority Date/Time Associated Diagnosis Comme nts OPTICAL COHERENCE Routine 06/04/2022 2:17 PM Papilledema Resu lts for this TOMOGRAPHY (OCT) - CDT procedure are in OPTIC NERVE - OU - the resul ts BOTH EYES section. documented in this encounter Results Optical Coherence Tomography - Optic Nerve - OU - Both Eyes (06/04/2022 2:17 PM CDT) Specimen (Source) Anatomical Location Collection Method / Collectio n Time Received Time / Laterality Volume Narrative OPHTHALMOLOGY IMAGING EXAM - 06/04/20 3:46 PM CDT OCT device used was [employer] . Right Eye Reliability was good. Left Eye Reliability was good. Notes The interpretation report for this test can be found in the Testing section of the chart note dated 2 Kiran Guido M.D. OPHTH TOMOGRAPHY Performing Organization Address City/State/ZIP Code Phon e Number OPHTHALMOLOGY IMAGING EXAM documented in this encounter Visit Diagnoses Diagnosis Papilledema documented in this encounter Additional Health Concerns Assessment Noted Time PHQ-9 Depression Total Score: 8 03/29/2022 10:47 AM CD T documented as of this encounter Care Teams Barbering Instructor Relationship Specialty Start Date End Date Elsewhere, Pcp PCP - General Family Medicine 08/11/19 documented as of this encounter
--- OUTSIDE RECORDS SUMMARY | 2022-06-23 22:39 | XMS_ITS | Encounter Summary ---
:1970 Author Organization [facility] Address [address] [place] [address] Care Team Providers Name Role Phone Elsewhere, Pcp Primary Care Provider Unavailable Reason for Visit Outpatient (Routine) - Closed Specialty Diagnoses / Procedures Referred By Contact Refer red To Contact Ophthalmology Diagnoses Migraine Headache Chronic Elizabeth Omalley, [facility] C.N[facility]P., M.S.N. [address] [place] [phone] Referral ID Status Reason Start Date Expiration Date Visits Requ ested Visits Authorized [id number] Closed 03/29/2022 03/29/2023 1 1 Encounter Details Date Type Department Care Team Description 06/04/2022 Comprehensive Visit Department of [place], Migrain e Headache Ophthalmology in Kiran Coronado M.D. [place], [place] [address] [place] [address] [address] [place] [phone] Social History Tobacco Use Types Packs/Day Years [...] or relatives? How often do you attend holiness or More than 4 times per year 06/02/2022 religion services? Do you belong to any clubs or Yes 06/02/2022 organizations such as holiness groups, unions, fraternal or athletic groups, or [...] place to sleep or slept in a half-way (including now)? Education Answer Date Recorded What is the highest level of school Associate degree: [employer], 05/17/2020 you have completed or the highest technical, or vocational p [facility] degree you have received? Sex Assigned at Date Recorded Male 01/30/2018 9:28 AM CDT documented as of this encounter Progress Notes Kiran Guido M.D. - 06/04/2022 2:15 PM CDT ASSESSMENT / PLAN #1 Headaches Testing 06/04/2022: [place] visual field: Right: 8/14 fixation losses, 19% false positive, 19% false negative, tr non- specific scatter Left: 3/14 fixation losses, 11% false positive, tr non-specific scatter OCT: Right: normal rNFL and GCC Left: normal rNFL and GCC Fundus photo: Right: sharp nerve margins, normal color Left: sharp nerve margins, normal color Overall Impression 06/04/2022: The patient was referred for evaluation in the context of headaches. The exam today showed central acuity of 20/25+1 right eye and 20/20 left eye with normal pupils and color vision. The efferent exam showed full extraocular motility. Alternate cover testing showed a small comitant exophoria. Dilated fundus exam showed normal appearing optic nerves without pallor or edema. Spontaneous venous pulsations were present in both eyes. Visual field testing showed trace nonspecific scatter in each eye. OCT showed a normal rNFL and ganglion cell thickness. Overall, the patient's ophthalmic exam was reassuring. There was no papilledema. The spontaneous venous pulsations are reassuring that the intracranial pressure is normal. I recommended that he continue neurology follow-up for his headaches and have routine eye exams locally at least yearly. HPI The patient was referred by Elizabeth Omalley CNP who saw the patient 03/29/2022. He had been followed in the Headache Clinic since 2019 with chronic migraines. He also has a history of hypertension, hyperlipidemia, type 2 diabetes, and an elevated BMI. On 02/23/2022 at an episode where he fell out of a chair and then was unable to speak. He was taken to the hospital and ultimately admitted. MRI imaging reported a partially empty sella. He denied TVOsor vision loss. He did endorse sometimes being able to hear his heartbeat in his left ear when he lies down, occurs approx 2-3x/week. Neuro-Ophthalmology review was requested due to the history of headaches and partially empty sella. Overall he thinks his vision is doing okay. He has this sensation occasionally that when he looks tothe right that his left eye is lagging behind. He can notice some momentary double at that time before it resolves. He thinks his central and peripheral vision are normal. Headaches: Yes Transient visual obscurations: No Diplopia: Rarely since 3 months ago; 1x/week; binocular Pulsatile tinnitus: Yes, 2-3x/week Weight change: No significant change Others medications: No steroid use, supplemental vitamin A products/medications, tetracyclines, lithium MRI/MRV: Partially empty sella turcica documented in this encounter Plan of Treatment Upcoming Encounters Date Type Specialty Care Team Description 06/26/2022 Appointment Neurology Preet Landeros M.D . [address] [place] [phone] Bria Suh APRN, C.N.P., M.S.N. [address] [place] [phone] 07/25/2022 Appointment Radiology Preet Landeros M.D . [address] [place] [phone] (Wo rk) documented as of this encounter Visit Diagnoses Diagnosis Migraine Headache Chronic documented in this encounter Additional Health Concerns Assessment Noted Time PHQ-9 Depression Total Score: 8 03/29/2022 10:47 AM CD T documented as of this encounter Care Teams Senior [employer]form[employer] Etl Developer Relationship Specialty Start Date End Date Elsewhere, Pcp PCP - General Family Medicine 08/11/19 documented as of this encounter
--- OUTSIDE RECORDS SUMMARY | 2022-06-23 22:39 | XMS_ITS | Encounter Summary ---
:1970 Author Organization [facility] Address [address] [place] [address] Care Team Providers Name Role Phone Elsewhere, Pcp Primary Care Provider Unavailable Encounter Details Date Type Department Care Team Description 06/04/2022 Hospital Encounter Department of Laboratory Preet Burks M.D. [facility] Medicine and Pathology, [address] [place] [address] in [place], [place] [address] [place] [address] [place] [address] (Work) [phone] Social History Tobacco Use Types Packs/Day Years [...] or relatives? How often do you attend mu-ism or More than 4 times per year 06/02/2022 jehovah's witness services? Do you belong to any clubs or Yes 06/02/2022 organizations such as mu-ism groups, unions, fraternal or athletic groups, or [...] AM CDT documented as of this encounter Medications at Time of Discharge Medication Sig Dispensed Refills Start Date End Date acetaminophen (TYLENOL) Take 2 tablets (1,000 0 0 03/07/2022 500 mg tablet mg total) by mouth every 6 (six) hours as needed for pain for up to 4 days. aspirin 81 mg capsule Take 81 mg by mouth 0 03/09 daily. atorvastatin (LIPITOR) 40 Take 1 tablet (40 mg 90 tablet 3 05/26/2018 mg tabletIndications: total) by mouth at Hyperlipidemia Mixed bedtime. BD Ultra-Fine Short Pen as directed 0 02/08/2022 Needle 31 gauge x 5/16 needle busPIRone (BUSPAR) 10 mg Take 10 mg by mouth 0 tablet daily. clotrimazole (LOTRIMIN) 1 Apply 1 application 0 0 12/15/2020 % cream topically as needed. To affected area. Dexcom G6 Sensor device 0 05/18/2020 Dexcom G6 Transmitter 0 03/27/2020 device DME CPAPIndications: DME Order 1 Device 0 07/05/2020 Snoring, Apnea Sleep Obstructive ferrous sulfate 325 mg Take 65 mg of iron by 0 (65 mg iron) tablet mouth daily. with food FLUoxetine (PROzac) 20 mg Take 3 capsules by 0 capsule mouth daily. fluticasone propionate Administer 2 sprays 0 (FLONASE) 50 into each nostril 2 mcg/actuation nasal spray (two) times a day as needed. glucagon (Baqsimi) 3 Administer 1 spray [...] injectionIndications: Diabetes Mellitus Type 2 Hyperglycemia (HCC), Snf Use Of Insulin Active (HCC) insulin glargine (Lantus Inject 20 Units under 15 mL 11 06/22/2020 Solostar U-100 Insulin) the skin at bedtime. 100 unit/mL (3 mL) injection ipratropium (ATROVENT) Administer 2 sprays 0 [...] 2 Hyperglycemia (HCC) miscellaneous medical CPAP machine supplies 0 supply misc naproxen (NAPROSYN) 500 Take 500 mg by mouth 2 0 mg tablet (two) times a day as needed. Nystop 100,000 unit/gram Apply topically as 0 powder needed. omeprazole (PriLOSEC) 40 Take 40 mg by mouth [address] capsule daily. ONETOUCH VERIO strips Test blood glucose 8 720 strip 3 05/16 times per day valsartan (DIOVAN) 80 mg TAKE 1 TABLET (80 MG 90 tablet 3 0 10/20/2018 tabletIndications: TOTAL) BY MOUTH DAILY. Hypertension Essential Primary documented as of this encounter Plan of Treatment Upcoming Encounters Date Type Specialty Care Team Description 06/26/2022 Appointment Neurology Preet Landeros M.D . [address] [place] [address] Bria Suh APRN, C.N.P., M.S.N. [address] [place] [address] 07/25/2022 Appointment Radiology Preet Landeros M.D . [address] [place], [place] [phone] (Wo rk) documented as of this encounter Procedures Procedure Name Priority Date/Time Associated Comments Diagnosis IA ORGANIC ACID 1 Routine 06/04/2022 10:24 Result [...] procedure are i n the results section. CBC WITH DIFFERENTIAL, Routine 06/04/2022 10:24 Loss Memory R esults for this B AM CDT procedure are i n the results section. COMPREHENSIVE Routine 06/04/2022 10:24 Loss Memory Results fo r this METABOLIC PANEL, S/P AM CDT procedu re are in the results section. documented in this encounter Results Methylmalonic Acid (MMA), Quantitative, Serum (06/04/2022 10:24 AM CDT) Analysis Performed At Patho logist Time Signature Methylmalonic 0.11 <=0.40 06/06/2022 DTL Acid, QN, S nmol/mL 4:21 PM CDT Comment: No cellular B-12 deficiency. ----ADDITIONAL INFORMATION---- This test was developed and its performa nce characteristics determined by [facility] in a manner consistent with CLIA requirements. This test has not been cleared or approved by the [place] d and Drug Administration. Specimen Anatomical Collection Method Collection Time Receive d Time (Source) Location / / Volume Laterality Blood 06/04/2022 10:24 06/04/2022 3:51 AM CDT PM CDT Preet Landeros M.D. LAB BLOOD NON ADD-ON Performing Organization Address City/State/ZIP Code Phon e Number [facility] - 200 [place], [place] [address] [facility] [place] [address] [facility] 200 [facility] Comprehensive Metabolic Panel (06/04/2022 10:24 AM [...] Organization Address City/State/ZIP Code Phon e Number [facility] - [address] [place], [place] [address] [facility] [place] [address] [facility] 200 [facility] (ABNORMAL) CBC with Differential, Blood (06/04/2022 10:24 AM CDT) [facility] Method Time Signature Hemoglobin 15.1 13.2 [...] M.D. LAB BLOOD ADD-ON Performing Organization Address City/[facility] Phon e Number [facility] - [address] Thyroid Function [place] (06/04/2022 10:24 AM CDT) athologist Signature TSH, Sensitive 0.8 0.3 - 4.2 06/04/2022 DTL mIU/L 12:12 PM CDT Specimen Anatomical Collection Method Collection Time Receive d Time (Source) Location / / Volume Laterality Blood (Blood, 06/04/2022 10:24 06/04/2022 Venous) AM CDT 11:44 AM CDT Authorizing Provider Result Paul Landeros M.D. LAB BLOOD ADD-ON Performing Organization Address City/[facility] Phon e Number [facility] - [address] Pernicious Anemia [place] (06/04/2022 10:24 AM CDT) athologist Signature Vitamin B12 342 180 - 914 06/04/2022 [facility] Assay, S ng/L 3:51 PM CDT Comment: B-12 <400; MMA test was perform ed. Specimen Anatomical Collection Method Collection Time Receive d Time (Source) Location / / Volume Laterality Blood (Blood, 06/04/2022 10:24 06/04/2022 2:12 Venous) AM CDT PM CDT Preet Landeros M.D. LAB BLOOD NON ADD-ON Performing Organization Address City/State/[facility] Phon e Number [facility] [address] [place], [place] [address] [place] [address] [facility] [address] [place] documented in this encounter Visit Diagnoses Diagnosis Loss Memory documented in this encounter Additional Health Concerns Assessment Noted Time PHQ-9 Depression Total Score: 8 03/29/2022 10:47 AM CD T documented as of this encounter Care Teams Furniture Assembly Supervisor Relationship Specialty Start Date End Date Elsewhere, Pcp PCP - General Family Medicine 08/11/19 documented as of this encounter
--- OUTSIDE RECORDS SUMMARY | 2022-06-23 22:39 | XMS_ITS | Encounter Summary ---
:1970 Author Organization [facility] Address [address] [place] [address] Care Team Providers Name Role Phone Elsewhere, Pcp Primary Care Provider Unavailable Reason for Visit Reason Comments Appointment Encounter Details Date Type Department Care Team Description 03/29/2022 Clinical Communication Department of [facility] Ophthalmology in Kiran Coronado M.D. [place], [place] [address] [facility] [address] [place] [phone] Social History Tobacco Use Types Packs/Day Years [...] or relatives? How often do you attend yazidism or More than 4 times per year 06/02/2022 yazidism services? Do you belong to any clubs or Yes 06/02/2022 organizations such as yazidism groups, unions, fraternal or athletic groups, or [...] place to sleep or slept in a intermediate (including now)? Education Answer Date Recorded What is the highest level of school Associate degree: anthony pretty, 05/17/2020 you have completed or the highest technical, or vocational p rogram degree you have received? Sex Assigned at Date Recorded Male 01/30/2018 9:28 AM CDT documented as of this encounter Miscellaneous Notes Telephone Encounter - Emre Johnson, C.O.A. - 03/29/2022 12:06 PM CDT Orders placed Emre Marti Telephone Encounter - Sonia Tang - 03/29/2022 11:54 AM CDT Ordering provider: [facility] Indication/diagnosis: Rule out elevated intracranial pressure/papilledema Testing needed: FUNDUS, CIRRUS OCT, VF 24-2 Date testing is needed: 06/04 documented in this encounter Plan of Treatment Upcoming Encounters Date Type Specialty Care Team Description 06/26/2022 Appointment Neurology Preet Landeros M.D . [address] [place] [address] Bria Suh, BRET, C.N.P., M.S.N. [address] [place] [address] 07/25/2022 Appointment Radiology Preet Landeros M.D . [address] [place], [place] [phone] (Wo rk) documented as of this encounter Visit Diagnoses Not on filedocumented in this encounter Additional Health Concerns Assessment Noted Time PHQ-9 Depression Total Score: 8 03/29/2022 10:47 AM CD T documented as of this encounter Care Teams Flow Specialist Relationship Specialty Start Date End Date Elsewhere, Pcp PCP - General Family Medicine 08/11/19 documented as of this encounter
--- OUTSIDE RECORDS SUMMARY | 2022-06-23 22:39 | XMS_ITS | Encounter Summary ---
:1970 Author Organization [facility] Address [address] [place] [address] Care Team Providers Name Role Phone Elsewhere, Pcp Primary Care Provider Unavailable Reason for Referral Outpatient (Routine) - Authorized Specialty Diagnoses / Procedures Referred By Contact Refer red To Contact Neurology Jeanie Barriga M.D. Garza, Ivan, M.D. [address] [place] [address] [address] [place] [phone] [place] [address] Fax: Referral ID Status Reason Start Date Expiration Date Visits V isits Requested Authorized [id number] Authorized 06/03/2022 06/02/2025 1 1 utpatient (Routine) - Authorized Specialty Diagnoses / Procedures Referred By Contact Refer red To Contact Neurological Surgery Jeanie Barriga M.D. [facility] [address] [place] [address] Referral ID Status Reason Start Date Expiration Date Visits V isits Requested Authorized [id number] Authorized 06/03/2022 06/02/2025 1 1 RI/CAT/PET Scan (Routine) - Pending Review Specialty Diagnoses / Procedures Referred By Contact Refer red To Contact Radiology Diagnoses Stenosis Spinal Cervical Jeanie Barriga M.D. [facility] Procedures MR Cervical Spine without IV Contrast [address] [place] [address] Referral ID Status Reason Start Date Expiration Date Visits V isits Requested Authorized [id number] Pending 06/03/2022 06/03/2023 1 1 Review Reason for Visit Outpatient (Routine) - Closed Specialty Diagnoses / Procedures Referred By Contact Refer anthony To Contact Neurological Surgery Jeanie Barriga M.D. [facility] [address] [place] [address] Referral ID Status Reason Start Date Expiration Date Visits Requ ested Visits Authorized [id number] Closed 02/04/2022 02/04/2023 1 1 Encounter Details Date Type Department Care Team Description 06/03/2022 Office Visit Department of Jeanie Barriga, Stenosis Spina l Cervical (Primary Dx); Neurologic Surgery in [place] Body Mass Index 50.0 To 59.9 Adult ([facility]) ; [place], [place] [address] [facility] Tobacco Use; 200 [place], [place] Diabetes Mellitus Type 2 Hyp erglycemia ([facility]); [place] [address] Carcinoma Renal Cell Left ([facility]); [phone] Hypertension Essential Prima ry; Apnea Sleep Obstructive; [phone] Carpal Tunnel S yndrome Bilateral (Fax) Social History Tobacco Use Types Packs/Day Years [...] or relatives? How often do you attend gnosticist or More than 4 times per year 06/02/2022 uatsdin services? Do you belong to any clubs or Yes 06/02/2022 organizations such as gnosticist groups, unions, [employer] or athletic groups, or school groups? How [...] place to sleep or slept in a fpc (including now)? Education Answer Date Recorded What is the highest level of school Associate degree: anthony pretty, 05/17/2020 you have completed or the highest technical, or vocational p gilbertoram degree you have received? Sex Assigned at Date Recorded Male 01/30/2018 9:28 AM CDT documented as of this encounter Progress Notes Jeanie Barriga M.D. - 06/03/2022 1:00 PM CDT I am seeing Ashish and his in follow-up along with . I met this gentleman earlier in the year with a chief complaint of cervical stenosis. This had come to everyone's attention because he was having a variety of spells with symptoms. Most of the symptoms sounded cerebral in origin. In the course of the evaluation a cervical MRI was done and showed cervical stenosis. A follow-up EMG showed bilateral carpal tunnel syndrome. We felt this likely accounted for the patient's hand symptoms. My colleague Dr. Solorzano decompressed the left carpal ligament with a good result. Surgery for the right is pending. In the meantime several things have happened. In early February the patient was sitting on a kitchen chair. One of the legs gave out and he fell. He did not strike his head. After a bit of time he was checking his phone and then lost consciousness. His was unable to arouse him for 3 minutes. It was unusual that it would take this long to arouse him. Recall that 1 aspect of his original spells was episodic lapse of consciousness. In any event she eventually aroused him and they went to the hospital about an hour later. He had trouble with speech that lasted 24 hours. He had weakness on the left side of the body which resolved more quickly. The cause for the whole episode was unclear. In addition over these months he is continued to have episodic left-sided symptoms which involve face arm and leg. Dr. Landeros is continuing to investigate these various things. His neurologic exam still shows no evidence of myelopathy. I reviewed again the cervical MRI scan from earlier in the year. The patient has cervical stenosis. It is worst at C5. Our radiologist does not see any clear signal change in the cord. His spine is straight to slightly kyphotic. We have no cervical spine x-rays. I have discussed the imaging findings in the context of the patient's symptoms. Given the normal exam I do not feel any cervical surgery is required. I would like to see the patient back in [address] Landeros. We should repeat the cervical imaging. All questions answered. Parenthetically the patient has told us that he has stopped smoking about a year ago. We will updatehis medical record. The patient remains quite obese. I told him his target weight should be 210-220. 20 minutes in the room today in lovc-eu-blia time largely used to quitline counselor but also help coordinate his care documented in this encounter Plan of Treatment Upcoming Encounters Date Type Specialty Care Team Description 06/26/2022 Appointment Neurology Preet Landeros M.D . [address] [place] [phone] Bria Suh APRN, C.N.P., M.S.N. [address] [place] [phone] 07/25/2022 Appointment Radiology Preet Landeros M.D . [address] [place] [phone] (Wo rk) Scheduled Orders Name Type Priority Associated Diagnoses Order S chedule MR Cervical Spine Imaging RAD - Routine (most Stenosis Spinal Expected: without IV Contrast inpatients and all Cervical , outpatients) Expires: 06/03/2023 Scheduled Referrals Name Type Priority Associated Order Schedule Diagnoses Neurological Surgery Outpatient Referral Routine Expected: office visit (clinic) 2022, Expires: 09/02/2023 Return to provider in Outpatient Referral Routine Expected: another specialty 12/09/2022 , Expires: 09/02/2023 documented as of this encounter Visit Diagnoses Diagnosis Stenosis Spinal Cervical - Primary Body Mass Index 50.0 To 59.9 Adult (HCC) Tobacco Use Diabetes Mellitus Type 2 Hyperglycemia ( HCC) Carcinoma Renal Cell Left (HCC) Hypertension Essential Primary Apnea Sleep Obstructive Carpal Tunnel Syndrome Bilateral documented in this encounter Additional Health Concerns Assessment Noted Time PHQ-9 Depression Total Score: 8 03/29/2022 10:47 AM CD T documented as of this encounter Care Teams Material Assembler Relationship Specialty Start Date End Date Elsewhere, Pcp PCP - General Family Medicine 08/11/19 documented as of this encounter
--- OUTSIDE RECORDS SUMMARY | 2022-06-23 22:39 | XMS_ITS | Encounter Summary ---
:1970 Author Organization [facility] Address [address] [place] [address] Care Team Providers Name Role Phone Elsewhere, Pcp Primary Care Provider Unavailable Reason for Visit Reason Comments Pre-visit Intake Encounter Details Date Type Department Care Team Description 03/28/2022 Clinical Communication Visit Review in Pr e-visit Intake [place], [place] [address] [place] [address] Social History Tobacco Use Types Packs/Day Years [...] or relatives? How often do you attend bahai or More than 4 times per year 06/02/2022 quaker services? Do you belong to any clubs or Yes 06/02/2022 organizations such as bahai groups, unions, fraternal or athletic groups, or [...] Neurology Preet Landeros M.D . [address] [place] [phone] Bria Suh, BRET, C.N.P., M.S.N. [address] [place] [phone] 07/25/2022 Appointment Radiology Preet Landeros M.D . [address] [place] [phone] (Wo rk) documented as of this encounter Visit Diagnoses Not on filedocumented in this encounter Additional Health Concerns Assessment Noted Time PHQ-9 Depression Total Score: 12 02/01/2021 9:43 AM CD T documented as of this encounter Care Teams Respiratory Therapy Instructor Relationship Specialty Start Date End Date Elsewhere, Pcp PCP - General Family Medicine 08/11/19 documented as of this encounter
--- OUTSIDE RECORDS SUMMARY | 2022-06-23 22:39 | XMS_ITS | Encounter Summary ---
:1970 Author Organization [facility] Address [address] [place] [address] Care Team Providers Name Role Phone Elsewhere, Pcp Primary Care Provider Unavailable Reason for Referral Outpatient (Routine) - Authorized Specialty Diagnoses / Procedures Referred By Contact Refer red To Contact Neurology Elizabeth Ray APRN, C.N.P., [facility] M.S.N. [address] [place], [place] [phone] Referral ID Status Reason Start Date Expiration Date Visits V isits Requested Authorized [id number] Authorized 04/01/2022 04/01/2023 1 1 utpatient (Routine) - Closed Specialty Diagnoses / Procedures Referred By Contact Refer red To Contact Ophthalmology Diagnoses Migraine Headache Chronic Elizabeth Ray APRN, [facility] C.N.P., M.S.N. [address] [place], [place] [phone] Referral ID Status Reason Start Date Expiration Date Visits Requ ested Visits Authorized [id number] Closed 03/29/2022 03/29/2023 1 1 Reason for Visit Outpatient (Routine) - Closed Specialty Diagnoses / Procedures Referred By Contact Refer red To Contact Neurology Preet Landeros M.D. [facility] [address] [place] [phone] Referral ID Status Reason Start Date Expiration Date Visits Requ ested Visits Authorized [id number] Closed 11/15/2021 11/15/2022 1 1 Encounter Details Date Type Department Care Team Description 03/29/2022 Office Visit Department of Elizabeth Ray Migraine He adache Chronic (Primary Dx); Neurology in L, CANVAS BASTER JUMPBASTING, C.N.P., Migraine He adache With Aura [place], [place] M.S.N. [address] [facility] [address] [place] [phone] Social History Tobacco Use Types Packs/Day Years [...] or relatives? How often do you attend episcopalian or More than 4 times per year 06/02/2022 christian services? Do you belong to any clubs or Yes 06/02/2022 organizations such as episcopalian groups, unions, fraternal or athletic groups, or [...] Sign Reading Time Taken Comments Blood Pressure 136/78 03/29/2022 11:14 AM CDT Pulse - - Temperature - - Respiratory Rate - - Oxygen Saturation - - Inhaled Oxygen Concentration - - Weight 141 kg (311 lb 4.6 oz) 03/29/2022 11:14 AM CDT Height 164.4 cm (5' 4.72) 03/29/2022 11:14 AM CDT Body Mass Index 52.24 03/29/2022 11:14 AM CDT documented in this encounter Progress Notes Elizabeth Ray, BRET, C.N.P., M.S.N. - 03/29/2022 11:15 AM CDT SUBJECTIVE CHIEF COMPLAINT / REASON FOR VISIT Follow up headaches Established care in Neurology Headache [facility]: 2019 Previous headache providers: Tigre HISTORY OF PRESENT ILLNESS: Mr. Murphy is a 52 y.o. male, with an established diagnosis of chronic migraine headaches and migraine with visual aura. Patient also has a history of spinal and neural foraminal C5-6 stenosis, TYSON, asthma, depression, type 2 DM, GERD, hyperlipidemia, hypertension, kidney neoplasm, elevated BMI, and psoriasis. Mr. Murphy returns today for follow up and subsequent evaluation of headache symptoms. Mr. Murphy was last seen for follow up with Dr. Landeros on November 15, 2021. At that visit the patient had a number of issues addressed including migraines, advanced c-spinal canal stenosis, severe obstructive sleep apnea, depression/anxiety, and bilateral hand pain. From a headache standpoint Dr. Landeros elected to increase Mr. Murphy's Botox from 150 units to 200 units every 12 weeks at that visit. The patient feels that the higher dose of Botox has been beneficial and his wearing off went from 4 weeks down to 1 week. He continues to endorse a greater than 50% improvement in the frequency and intensity of his migraines since starting Botox in 2019. The patient averages about 3-4 severe headache days each month. He will take naproxen, sumatriptan, or atarax interchangeably for abortive therapies, none of which completely abort the headache. He is not currently at risk for medication overuse. On February 23 the patient had an episode where he fell out of his chair (he is unsure if he lost consciousness). He quickly realized that he was unable to speak after his fall. He also had a moderate headache with visual aura consisting of white spots, on the left side. He denies thunderclap headache. He has baseline paresthesias and can not recall of these became worse during that time. He denies facial droop. He is unsure if he experienced unilateral muscle weakness at that time, but wonders if that would explain why he fell out of his chair. He was consequently taken to the ER and was admitted for a 3 day hospital stay, during which time his above mentioned symptoms persisted for 3 days. MRI was performed on February 23 revealing slight thinning of the corpus callosum. Partially empty sella turcica. Carpus is intact. Mild degenerative change visualized upper cervical spine. There is no restricted diffusion. No intracranial hemorrhage. Theventricles are proportionate to the cerebral sulci. The 4th ventricle appears midline. The basal cisterns appear patent. No abnormal extra-axial fluid collection identified. Scattered foci of T2 FLAIR h yperintensity within the subcortical and periventricular supratentorial white matter, which are nonspecific. The patient was eventually discharged to home with conservative care. The patient then followed up with his PCP after hospital discharge on February 26. At that visit the patient was switched from Propranolol to Verapamil, as there was concern for possible hemiplegic migraines. The patient denies known family history of hemiplegic migraines. Since his hospitalization the patient denies any severe recurrence of symptoms (he is a poor historian with consistent memory issues). When prompted with further questions regarding the details of his headaches, he endorses associated headache symptoms that are worse with coughing, the headaches get better when he lays flat, and he can hear his heartbeat sometimes in his left ear. He denies fevers,night sweats, or weight loss. He has not had his eyes checked since his hospitalization in February. He denies TVOs or vision loss. He will have occasional visual aura symptoms without a headache and sometimes has difficulties with speech during a severe migraine headache. He believes these symptoms are so mewhat new, although he is unable to pinpoint when these symptoms started. According to his PCPs last note, at one point there was a plan to refer the patient to a local neurologist but this was never followed up. He is currently scheduled to see Dr. Tigre ramires for follow up in May of this year. PATIENT PROVIDED ELECTRONIC QUESTIONNAIRE DATA Current headache medications: Propranolol (Inderal) at a dose of 80 to 240 mg; Fluoxetine (Prozac, Sarafem) at a dose of 40 to 80 mg; Verapamil 120mg; Botulinum toxin (Botox) at a dose of Don't Know every 3 months; Headache activity past 4 weeks/ Medication side effects: Over the past 4 weeks, Mr. Murphy reports having had 6 headache days. Over the past 4 weeks the average severity and disability caused by the patients headaches is 1-mild. Over the past 3 months, he reports experiencing side effects of: Sleepiness which is mild enough to tolerate if my headaches improve. Dizziness / Vertigo which is mild enough to tolerate if my headaches improve. Light-headedness which is mild enough to tolerate if my headaches improve. Tingling or needles and pins feeling which is mild enough to tolerate if my headaches improve. Hoarse voice which is mild enough to tolerate if my headaches improve. MIDAS headache scale score: [18] PHQ9 depression/anxiety score: PHQ9 Score 03/29/2022 PHQ-9 Total Score (max 27) 8 Previous Headache Medications: Excedrin, sumatriptan, naproxen Propranolol, Botox, verapamil Other Pertinent Medications: Prozac and Diovan Current Outpatient Medications on File Prior to Visit Medication Sig Dispense Refill acetaminophen (TYLENOL) 500 mg tablet Take 2 tablets (1,000 mg total) by mouth every 6 (six) hours as needed for pain for up to 4 days. (Patient taking differently: Take 1,000 mg by mouth as needed for pain.) aspirin 81 mg capsule Take 81 mg by mouth daily. atorvastatin (LIPITOR) 40 mg tablet Take 1 tablet (40 mg total) by mouth at bedtime. 90 tablet 3 BD Ultra-Fine Short Pen Needle 31 gauge x 5/16 needle as directed busPIRone (BUSPAR) 10 mg tablet Take 10 mg by mouth daily. clotrimazole (LOTRIMIN) 1 % cream Apply 1 application topically as needed. To affected area. Dexcom G6 Sensor device Dexcom G6 Transmitter device DME CPAP DME Order 1 Device 0 ferrous sulfate 325 mg (65 mg iron) tablet Take 65 mg of iron by mouth daily. with food FLUoxetine (PROzac) 40 mg capsule Take 1 capsule by mouth daily. fluticasone propionate (FLONASE) 50 mcg/actuation nasal spray Administer 2 sprays into each nostril2 (two) times a day as needed. glucagon (Baqsimi) 3 mg/actuation spray,non-aerosol Administer 1 spray into nostril(s) as directed. hydrocortisone 1 % solution Apply topically as needed. hydrOXYzine (ATARAX) 25 mg tablet Take 25 mg by mouth every 8 (eight) hours as needed. insulin aspart U-100 (NovoLOG Flexpen U-100 Insulin) 100 unit/mL injection 18 units before each meal 3 times daily. 30 mL 5 insulin glargine (Lantus Solostar U-100 Insulin) 100 unit/mL (3 mL) injection Inject 20 Units underthe skin at bedtime. (Patient taking differently: Inject 27 Units under the skin at bedtime.) 15 mL 11 ipratropium (ATROVENT) 0.03 % nasal spray Administer 2 sprays into each nostril 2 (two) times a day. Jardiance 25 mg tablet TAKE 1 TABLET(25 MG) BY MOUTH EVERY MORNING BEFORE BREAKFAST 90 tablet 3 ketoconazole (NIZORAL) 2 % shampoo Apply 1 application topically 2 (two) times a week. levocetirizine (XYZAL) 5 mg tablet Take 5 mg by mouth every evening. liraglutide (Victoza 3-Brijesh) 0.6 mg/0.1 mL (18 mg/3 mL) injection Inject 1.8 mg under the skin daily. 27 mL 3 miscellaneous medical supply [facility] naproxen (NAPROSYN) 500 mg tablet Take 500 mg by mouth 2 (two) times a day as needed. Nystop 100,000 unit/gram powder Apply topically as needed. omeprazole (PriLOSEC) [address] capsule Take 40 mg by mouth daily. ONETOUCH VERIO strips Test blood glucose 8 times per day 720 strip 3 propranoloL (INDERAL) 40 mg tablet Take 40 mg by mouth 2 (two) times a day. SUMAtriptan (IMITREX) 50 mg tablet Take 50 mg by mouth as needed. May repeat dose once in 2 hours if migraine unresolved. Do not exceed 200 mg in 24 hours. valsartan (DIOVAN) 80 mg tablet TAKE 1 TABLET (80 MG TOTAL) BY MOUTH DAILY. 90 tablet 3 verapamiL (VERELAN) 120 mg 24 hr capsule Take 120 mg by mouth every morning. [DISCONTINUED] nystatin (MYCOSTATIN) 100,000 unit/mL suspension 1,000,000 Units as needed. Current Facility-Administered Medications on File Prior to Visit Medication Dose Route Frequency Provider Last Rate Last Admin glucagon injection 1 mg (GlucaGen) 1 mg intravenous Once Carmen Gallo M.B., B.Ch. Allergies Allergen Reactions Lisinopril Cough Metformin GI intolerance OBJECTIVE PHYSICAL EXAM Constitutional Appearance: Normal appearance. HENT Head: Normocephalic. Eyes Conjunctiva/sclera: Conjunctivae normal. Pulmonary Effort: Pulmonary effort is normal. Neurological General: No focal deficit present. Mental Status: He is alert. Psychiatric Mood and Affect: Mood normal. Behavior: Behavior normal. PREVIOUS EVALUATIONS/IMAGING/TESTS Follows Psychiatry at [place] 12/04 EMG: Abnormal, carpal tunnel bilateral, C8 radiculopathy (underwent carpal tunnel surgery on the left). 02/23/22 outside MRI Head: Slight thinning of the corpus callosum. Partially empty sella turcica. Carpus is intact. Mild degenerative change visualized upper cervical spine. There is no restricted diffusion. No intracranial hemorrhage. The ventricles are proportionate to the cerebral sulci. The 4th ventricle appears midline. The basal cisterns appear patent. No abnormal extra-axial fluid collection identified. Scattered foci of T2 FLAIR hyperintensity within the subcortical and periventricular supratentorial white matter, which are nonspecific. Neuropsych testing suggested the patient has untreated anxiety ASSESSMENT / PLAN #1 Chronic migraine headache #2 Migraine headache with visual/language/sensory aura vs hemiplegic migraine #3 Memory issues, ongoing #4 Partial empty sella on outside MRI, February 2022 Mr. Murphy has had improvement in the wearing off phase of the Botox since increasing the dose to 200 units every 12 weeks. He continues to endorse a greater than 50% improvement in the frequency and intensity of his migraine headaches since starting the Botox injections in 2019. At this time I recommend he continue with his current prophylactic regimen as outlined below. He can continue the Verapamil which was prescribed by his primary care provider. The patient had an outside MRI of the head on February 23, indicating a partial empty sella. Upon review of the patient's case with Dr. Landeros, he agrees to proceed with neuro-ophthalmology evaluation to rule out papilledema. Dr. Landeros is planning to follow up with the patient in May. I have asked him to weigh in on Mr. Murphy's outside diagnosis of hemiplegic migraines. Based on the patient's explanation of symptoms,there does not appear to be a clear motor deficit associated with his symptoms. However, I would appreciate Dr. Landeros's expertise in this regard. Should Dr. Landeros agree with the outside diagnosis, we may consider switching from sumatriptan to Nurtec or Ubrelvy at that time. I will plan to continue to follow the patient for his headaches, and allow Dr. Landeros to follow the patient for his additional neurologic concerns in May. Current headache treatment plans, alternative treatment considerations, and risks of overusing abortive therapies were discussed with the patient. Sleep, diet, hydration, exercise, depression/anxiety, and stress, all have a direct impact on optimal headache management. The patient may contact me via the patient portal or contact my executive legal secretary directly with any additional questions or concerns. All questions were answered to the best of my ability, and the patient verbalized understanding of the proposed treatment plan as outlined below: SUMMARY OF RECOMMENDATIONS: Preventive therapy: Continue Botox 200 units every 12 weeks. Continue Verapamil 120 mg daily. Continue Prozac 40 mg daily. For acute treatment of mild to moderate headaches, the patient may take Naprosyn as needed. Limit use to no more than 10 days per month or 2-3 days per week. For acute treatment of severe headaches, the patient may take sumatriptan 50 mg as needed. Take one tablet at first on set of headache, may repeat dose in 2 hours if headache persists. Limit use to no more than 9 days per month or 2 days per week. For nausea associated with headache no recommendations were made. Limit all abortive therapies collectively to no more than 10 days per month to avoid medication overuse headache or blocking the effects of preventive therapies. Non-medicinal options for headache management include: NA. Future considerations for treatment include increasing verapamil, Nurtec, Ubrelvy, antiemetic if needed. Caution: TCAs, Depakote due to weight gain potential, topamax due to cognitive changes. Neuro-ophthalmology evaluation to rule out papilledema. Follow up recommendations: Plan to follow with Dr. Landeros in May. Plan to follow with me in 3 months, same day as Botox. documented in this encounter Miscellaneous Notes Addendum Note - Elizabeth Ray APRN, C.N.Jarett, M.S.N. - 03/29/2022 11:15 AM CDT Addended by: ELIZABETH RAY on: 04/01/2022 12:14 PM Modules accepted: Orders documented in this encounter Plan of Treatment Upcoming Encounters Date Type Specialty Care Team Description 06/26/2022 Appointment Neurology Preet Landeros M.D . [address] [place] [phone] Bira Suh APRN, C.N.PBon, M.S.N. [address] [place] [phone] 07/25/2022 Appointment Radiology Preet Landeros M.D . [address] [place] [phone] (Wo rk) Scheduled Referrals Name Type Priority Associated Order Schedule Diagnoses Ophthalmology - Neuro Outpatient Referral Routine Migraine Hea dache Expected: consult (clinic) Chronic 03/29/2022 (Approximate), Expires: 06/29/2023 Neurology office visit Outpatient Referral Routine Expected: (clinic) 07/02/2022 (Approximate), Expires: 07/02/2023 documented as of this encounter Visit Diagnoses Diagnosis Migraine Headache Chronic - Primary Migraine Headache With Aura documented in this encounter Additional Health Concerns Assessment Noted Time PHQ-9 Depression Total Score: 8 03/29/2022 10:47 AM CD T documented as of this encounter Care Teams Information Systems Analyst Relationship Specialty Start Date End Date Elsewhere, Pcp PCP - General Family Medicine 08/11/19 documented as of this encounter
--- OUTSIDE RECORDS SUMMARY | 2022-06-23 22:39 | XMS_ITS | Encounter Summary ---
:1970 Author Organization [facility] Address [address] [place] [address] Care Team Providers Name Role Phone Elsewhere, Pcp Primary Care Provider Unavailable Reason for Referral Outpatient (Routine) - Authorized Specialty Diagnoses / Procedures Referred By Contact Refer red To Contact Diagnoses Stenosis Spinal Cervical Jeanie Barriga M.D. [facility] Procedures DX Cervical Spine 2-3 Views [address] [place] [phone] Referral ID Status Reason Start Date Expiration Date Visits V isits Requested Authorized [id number] Authorized 05/31/2022 05/31/2023 1 1 Encounter Details Date Type Department Care Team Description 05/31/2022 Orders Only Department of Stevenson Elliott, Stenosis Spin al Neurologic Surgery in M.S.N., R. N. Cervical (Primary Dx) [place], [place] [address] [facility] [address] [place] [phone] Social History Tobacco Use Types Packs/Day Years [...] or relatives? How often do you attend lutheran or More than 4 times per year 06/02/2022 jehovah's witness services? Do you belong to any clubs or Yes 06/02/2022 organizations such as lutheran groups, unions, fraternal or athletic groups, or [...] place to sleep or slept in a alf (including now)? Education Answer Date Recorded What [...] Appointment Neurology Preet Landeros M.D . [address] [place] [phone] Bria Suh APRN, C.N.P., M.S.N. [address] [place] [phone] 07/25/2022 Appointment Radiology Preet Landeros M.D . [address] [place], [place] [phone] (Wo rk) Scheduled Orders Name Type Priority Associated Diagnoses Order S chedule DX Cervical Spine Imaging RAD - Routine (most Stenosis Spinal Expected: 2-3 Views inpatients and all Cervical 3, outpatients) Expires: 08/30/2023 documented as of this encounter Visit Diagnoses Diagnosis Stenosis Spinal Cervical - Primary documented in this encounter Additional Health Concerns Assessment Noted Time PHQ-9 Depression Total Score: 8 03/29/2022 10:47 AM CD T documented as of this encounter Care Teams Director Data Architecture Relationship Specialty Start Date End Date Elsewhere, Pcp PCP - General Family Medicine 08/11/19 documented as of this encounter
--- OUTSIDE RECORDS SUMMARY | 2022-06-23 22:39 | XMS_ITS | Encounter Summary ---
:1970 Author Organization [facility] Address [address] [place] [phone] Care Team Providers Name Role Phone Elsewhere, Pcp Primary Care Provider Unavailable Reason for Visit Reason Comments cervicap spine MRI Encounter Details Date Type Department Care Team Description 04/04/2022 Clinical Communication Department of Preet Landeros cerv icap spine MRI Neurology in [facility], [address] [place], [place] [address] [place] [phone] [place], [place] [phone] (Work) [phone] Social History Tobacco Use Types Packs/Day Years [...] or relatives? How often do you attend mandaen or More than 4 times per year 06/02/2022 tenriism services? Do you belong to any clubs or Yes 06/02/2022 organizations such as mandaen groups, unions, fraternal or athletic groups, or [...] this encounter Miscellaneous Notes Telephone Encounter - Francisca Nguyen - 04/04/2022 11:00 AM CDT ? Cervical spine MRI Aaron Miranda, the patient's pcp calls. He says he is under the understanding you were wanting the patient to have a cervical spine MRI. He says the patient had one in September and he wonders if that will suffice or if you would like the patient to have another one. He is happy to facilitate this. Aaron Miranda [phone] documented in this encounter Plan of Treatment Upcoming Encounters Date Type Specialty Care Team Description 06/26/2022 Appointment Neurology Preet Landeros M.D . [address] [place] [phone] Bria Suh APRN, C.N.P., M.S.N. [address] [place] [phone] 07/25/2022 Appointment Radiology Preet Landeros M.D . [address] [place], [place] [phone] (Wo rk) documented as of this encounter Visit Diagnoses Not on filedocumented in this encounter Additional Health Concerns Assessment Noted Time PHQ-9 Depression Total Score: 8 03/29/2022 10:47 AM CD T documented as of this encounter Care Teams Cushion Worker Relationship Specialty Start Date End Date Elsewhere, Pcp PCP - General Family Medicine 08/11/19 documented as of this encounter
--- OUTSIDE RECORDS SUMMARY | 2022-06-23 22:39 | XMS_ITS | Encounter Summary ---
:1970 Author Organization [facility] Address [address] [place] [address] Care Team Providers Name Role Phone Elsewhere, Pcp Primary Care Provider Unavailable Reason for Referral Outpatient (Routine) - Authorized Specialty Diagnoses / Procedures Referred By Contact Refer red To Contact Diagnoses Migraine Headache Chronic Preet Landeros M.D. [facility] Procedures Botox for Chronic Migraine NH CHEMODENERV FACIAL TRIGEM NATALIE NH INJECTION,ONABOTULINUMTOXINA 200 [address] [place], [place] [phone] Referral ID Status Reason Start Date Expiration Date Visits V isits Requested Authorized [id number] Authorized 11/15/2021 11/15/2022 12 12 Reason for Visit Outpatient (Routine) - Authorized Specialty Diagnoses / Procedures Referred By Contact Refer red To Contact Diagnoses Migraine Headache Chronic Preet Landeros M.D. [facility] Procedures Botox for Chronic Migraine NH CHEMODENERV FACIAL TRIGEM NATALIE NH INJECTION,ONABOTULINUMTOXINA 200 [address] [place], [place] [phone] Referral ID Status Reason Start Date Expiration Date Visits V isits Requested Authorized [id number] Authorized 11/15/2021 11/15/2022 12 12 Encounter Details Date Type Department Care Team Description 03/29/2022 Hospital Encounter Department of Preet Landeros M.D. [address] [place] [phone] Migraine Headache Neurology in Gokul Boyd M.D. [address] [place] [phone] Chronic [place], [place] [address] [place] [phone] Social History Tobacco Use Types Packs/Day Years [...] or relatives? How often do you attend voodoo or More than 4 times per year 06/02/2022 worship services? Do you belong to any clubs or Yes 06/02/2022 organizations such as voodoo groups, unions, fraternal or athletic groups, or [...] minutes do you engage in exercise at is 20 min 06/02/2022 level? 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 Primary SUMAtriptan (IMITREX) 50 Take 50 mg by mouth 0 06/03/2022 mg tablet as needed. May repeat dose once in 2 hours if migraine unresolved. Do not exceed 200 mg in 24 hours. documented as of this encounter Procedure Notes Gokul Boyd M.D. - 03/29/2022 10:30 AM CDTAssociated Order(s): Botox for Chronic Migraine Pre-Procedure Diagnose(s): Migraine Headache Chronic Post-Procedure Diagnose(s): Migraine Headache Chronic Botox for Chronic Migraine Date/Time: 03/29/2022 10:26 AM Performed by: Gokul Boyd M.D. Authorized by: Preet Landeros M.D. Care team members present 1. Elliott Patel M.D. 2. Karen Foster L.P.N. PROCEDURE DETAILS Pre-procedure pain score: 0/10 Injection of: 100 Units onabotulinumtoxinA 100 unit; 100 Units onabotulinumtoxinA 100 unit Needle gauge: 30 Needle length: 0.5 in Injection site details Pleater / Procerus muscle(s): 5 units into the left micromatic hone operator muscle, 5 units into the right micromatic hone operator muscle and 5 units into the procerus muscle (15 units total). Superior Frontalis muscle(s): 5 units into the left superior frontalis muscle and 5 units into the right superior frontalis muscle (2 injection sites per muscle) (10 units total). Temporalis muscle(s): 25 units into the left temporalis muscle and 25 units into the right temporalis muscle (4 injection sites per muscle) (50 units total). Splenius Capitis muscle(s): 12.5 units into the left splenius capitis muscle and 12.5 units into theright splenius capitis muscle (2 injection sites per muscle) (25 units total). Occipitalis muscle(s): 25 units into the left occipitalis muscle and 25 units into the right occipitalis muscle (4 injection sites per muscle) (50 units total). Trapezius muscle(s): 25 units into the left trapezius muscle and 25 units into the right trapezius muscle (3 injection sites per muscle) (50 units total). Total units wasted: 0 Total [...] confirmed in a procedural pause. PRE-PROCEDURE DETAILS Reason for injections: chronic migraine Appropriate hand hygiene, gown, cap, mask, protective eyewear, sterile gloves, skin preparation, sterile drape, and strict aseptic technique were utilized as applicable for the procedure: yes Site preparation: alcohol Clinical history: Patient was made aware that they may be responsible for any and all costs associated with injection of Botulinum Toxin Type A that is not covered by a third republican. Prior to treatment with Botox, the frequency of headaches was greater than 15 days per month and with significant impairment in the quality of life. Please see the initial Botox injection note and Headache consultation note regarding specific details of the headache history prior to the start of treatment. Any other daily migraine prophylactic treatments taken over the last 3 months: Propranolol and verapamil Headache frequency when Botox is most effective (middle month in between rounds). Headache days per month: 3 days Severe headache days per month: 1 days Wearing off phenomenon prior to this round of Botox: yes Duration: 1 weeks Patient finds Botox treatment helpful and wants to repeat the treatment? yes Patient had migraine headache frequency reduction by at least 7 days per month compared to pretreatment level, or migraine headache duration reduction of at least 100 hours per month compared to pretreatment level? yes Midas Scorin (03/26/2022 10:53 AM) POST-PROCEDURE DETAILS Procedure completed successfully: yes Complications: no apparent complications PLAN: The patient has had good response for treatment of their chronic migraine with onabotulinumtoxin A injections at 200 units every 12 weeks in that the patient had migraine headache frequency reduction by at least 7 days per month compared to pretreatment level, or migraine headache duration reduction of at least 100 hours per month compared to pretreatment level. Therefore, I have encouraged the patient to schedule their next round of injections 200 units in 12 weeks. ATTESTATION STATEMENT A resident or fellow participated in the procedure, and the apple [employer] consultant was present for the entire procedure. documented in this encounter Plan of Treatment Upcoming Encounters Date Type Specialty Care Team Description 06/26/2022 Appointment Neurology Preet Landeros M.D . [address] [place] [phone] Bria Suh APRN, C.N.P., M.S.N. [address] [place] [phone] 07/25/2022 Appointment Radiology Preet Landeros M.D . [address] [place], [place] [phone] (Wo rk) documented as of this encounter Procedures Procedure Name Priority Date/Time Associated Comments Diagnosis NH CHEMODENERV FACIAL Routine 03/29/2022 10:26 Migraine Headac he Results for this TRIGEM NATALIE AM CDT Chronic procedure are i n the results section. documented in this encounter Results NH CHEMODENERV FACIAL TRIGEM NATALIE (03/29/2022 10:26 [...] Needle length: 0.5 in Injection site details Pleater / Procerus muscle(s): 5 units into the left micromatic hone operator muscle, 5 units into the right micromatic hone operator muscle and 5 units into the procerus [...] fellow participated in the procedure, and the [employer] consultant was present for the entire procedure. Preet Landeros M.D. NEUROLOGY ORDERABLES Performing Organization Address City/State/ZIP Code Phon e Number MMODAL MMODAL NA documented in this encounter Visit Diagnoses Diagnosis Migraine Headache Chronic documented in this encounter Administered Medications Inactive Administered Medications - up to 3 most recent administrations Medication Order MAR Action Action Date Dose Rate Site onabotulinumtoxinA injection 100 Given 03/29/2022 10:26 AM 100 U nits Units (BOTOX) CDT 100 Units, injection, One-Time Injection, Starting on Fri03/29/22 at 1026, For 1 dose onabotulinumtoxinA injection 100 Units Given 03/29/2022 10:26 AM CDT 100 Units (BOTOX) 100 Units, injection, One-Time Injection, Starting on Fri03/29/22 at 1026, For 1 dose documented in this encounter Additional Health Concerns Assessment Noted Time PHQ-9 Depression Total Score: 8 03/29/2022 10:47 AM CD T documented as of this encounter Care Teams Banking Center Manager Relationship Specialty Start Date End Date Elsewhere, Pcp PCP - General Family Medicine 08/11/19 documented as of this encounter
--- OUTSIDE RECORDS SUMMARY | 2022-06-23 22:40 | XMS_ITS | Encounter Summary ---
:1970 Author Organization [facility] Address [address] [place] [phone] Care Team Providers Name Role Phone Elsewhere, Pcp Primary Care Provider Unavailable Encounter Details Date Type Department Care Team Description 03/06/2022 Hospital Encounter Department of Mathieu Solorzano Laboratory Medicine Savanah Johnston Syndrome Bilateral and Pathology, [address] [place] [address], in [place], [place] [phone] [place] [address] [place], [place] (Work) [phone] Social History Tobacco Use Types Packs/Day [...] More than 4 times per year 06/02/2022 mu-ism services? Do you belong to any clubs [...] place to sleep or slept in a long-term (including now)? 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 naproxen (NAPROSYN) 500 Take 500 mg [...] 24 hours. documented as of this encounter Plan of Treatment Upcoming Encounters Date Type Specialty Care Team Description 06/26/2022 Appointment Neurology Preet Landeros M.D . [address] [place] [phone] Bria Suh APRN, C.N.P., M.S.N. [address] [place] [phone] 07/25/2022 Appointment Radiology Preet Landeros M.D . [address] [place] [phone] (Wo rk) documented as of this encounter Procedures Procedure Name Priority Date/Time Associated Diagnosis Comme nts HEMOGLOBIN A1C, B Routine 03/06/2022 9:19 AM Carpal Tunnel Res ults for this CDT Syndrome Bilateral procedure are in the results section. documented in this encounter Results (ABNORMAL) Hemoglobin A1c (03/06/2022 9:19 AM CDT) P athologist Signature Hemoglobin A1c, 7.6 (H) 4.0 - 5.6 03/06/2022 DTL B % 10:07 AM CDT Comment: Hemoglobin A1c values greater than or eq ual to 6.5 percent are diagnostic for diabetes mellitus. ?? Diagnosis should be confirmed by repeat testing. ??In diabet ic patients, HbA1c goals should be discussed with healthcar e provider. Specimen Anatomical Collection Method Collection Time Receive d Time (Source) Location / / Volume Laterality Blood (Blood, 03/06/2022 9:19 AM 03/06/20 9:42 Venous) CDT AM CDT Mathieu Solorzano M.D. LAB BLOOD ADD-ON Performing Organization Address City/State/ZIP Code Phon e Number [facility] - [address] [place], [place] [address] [facility] [place] [address] [facility] [address] documented in this encounter Visit Diagnoses Diagnosis Carpal Tunnel Syndrome Bilateral documented in this encounter Additional Health Concerns Infection Onset Date Last Indicated Resolved Time COVID19 Pending 03/06/2022 03/06/2022 03/06/2022 2:44 PM CDT Assessment Noted Time PHQ-9 Depression Total Score: 12 02/01/2021 9:43 AM CD T documented as of this encounter Care Teams Police Detention Attendant Relationship Specialty Start Date End Date Elsewhere, Pcp PCP - General Family Medicine 08/11/19 documented as of this encounter
--- OUTSIDE RECORDS SUMMARY | 2022-06-23 22:40 | XMS_ITS | Encounter Summary ---
:1970 Author Organization [facility] Address [address] [place] [address] Care Team Providers Name Role Phone Elsewhere, Pcp Primary Care Provider Unavailable Reason for Referral Outpatient (Routine) - Closed Specialty Diagnoses / Procedures Referred By Contact Refer red To Contact Diagnoses Migraine Headache Chronic Preet Landeros M.D. [facility] Procedures Botox for Chronic Migraine [place] INJECTION,ONABOTULINUMTOXINA [place] CHEMODENERV FACIAL TRIGEM NATALEI Botox (Onabotulinumtoxina) J0585 150 units every 12 weeks [address] [place], [place] [phone] Referral ID Status Reason Start Date Expiration Date Visits Requ ested Visits Authorized [id number] Closed 05/17/2020 05/17/2022 12 12 Reason for Visit Outpatient (Routine) - Closed Specialty Diagnoses / Procedures Referred By Contact Refer red To Contact Diagnoses Migraine Headache Chronic Preet Landeros M.D. [facility] Procedures Botox for Chronic Migraine [place] INJECTION,ONABOTULINUMTOXINA [place] CHEMODENERV FACIAL TRIGEM NATALIE Botox (Onabotulinumtoxina) J0585 150 units every 12 weeks [address] [place], [place] [phone] Referral ID Status Reason Start Date Expiration Date Visits Requ ested Visits Authorized [id number] Closed 05/17/2020 05/17/2022 12 12 Encounter Details Date Type Department Care Team Description 07/18/2021 Hospital Encounter Department of Preet Landeros M.D. [address] [place] [phone] Migraine Headache Neurology in [place] Elizabethharry Lea APRN, C.N.P., M.S.N. [address] [place] [phone] Chronic [place], [place] [address] [place] [phone] Social History Tobacco Use Types Packs/Day Years Used Date Smoking Tobacco: Light Smoker Cigarettes 0.1 10 Cigars Smokeless Tobacco: Never Comments: An occasional cigar, approxima tely 2 a month Alcohol Use Standard Drinks/Week Comments Yes 0 (1 standard drink = 0.6 oz [...] get together with friends Three times a sarahe k 06/02/2022 or relatives? How often do you attend mosque or More than 4 times per year 06/02/2022 judaism services? Do you belong to any clubs or Yes 06/02/2022 organizations such as mosque groups, unions, fraternal or athletic groups, or [...] place to sleep or slept in a correction (including now)? Education Answer Date Recorded What is the highest level of school Associate degree: anthony pretty, 05/17/2020 you have completed or the highest technical, or vocational p katie degree you have received? Sex Assigned at Date Recorded Male 01/30/2018 9:28 AM CDT documented as of this encounter Medications at Time of Discharge Medication Sig Dispensed Refills Start Date End Date aspirin 81 mg capsule Take 81 mg by mouth 0 03/09 daily. atorvastatin (LIPITOR) Take 1 tablet (40 mg 90 tablet 3 07/2018 40 mg tabletIndications: total) by mouth at Hyperlipidemia Mixed bedtime. busPIRone (BUSPAR) 10 mg Take 10 mg [...] mg iron) tablet mouth daily. with food fluticasone propionate Administer 2 sprays 0 (FLONASE) 50 into each nostril 2 mcg/actuation nasal (two) times a day as spray needed. hydrOXYzine (ATARAX) 25 Take 25 mg by mouth 0 mg tablet every 8 (eight) hours as needed. insulin aspart U-100 18 units before each 30 mL 5 07/19 (NovoLOG Flexpen U-100 meal 3 times daily. Insulin) 100 unit/mL injectionIndications: Diabetes Mellitus Type 2 Hyperglycemia (HCC), Group Home Use Of Insulin Active (HCC) insulin glargine [...] by mouth [address] capsule daily. ProPerformaUCH VERIO strips Test blood glucose 8 720 strip 3 05/16 times per day valsartan (DIOVAN) 80 mg TAKE 1 TABLET (80 MG 90 tablet 3 0 10/20/2018 tabletIndications: TOTAL) BY MOUTH Hypertension Essential DAILY. Primary glucagon (Baqsimi) 3 Administer 1 2 each 3 09/20/2020 mg/actuation application into spray,non-aerosol nostril(s) as needed (hypoglycemia). amoxicillin (AMOXIL) 875 Take 875 mg by mouth 0 0 01/22/2021 01/08/2022 mg tablet 2 (two) times a day. for 10 days. Last dose to be taken 01/31/2021. amoxicillin-pot TAKE 1 TABLET BY 0 02/26/2021 clavulanate (AUGMENTIN) MOUTH TWICE DAILY FOR 875-125 mg per tablet 10 DAYS clotrimazole (LOTRIMIN) Apply topically as 0 03/0 11/202001/08/2022 1 % cream needed. FLUoxetine (PROzac) 20 Take 60 mg by mouth 0 04/1 01/202101/08/2022 mg capsule daily. indomethacin (INDOCIN) Take 50 mg by mouth 0 05/1 01/08/2022 50 mg capsule as needed. mupirocin (BACTROBAN) 2 Apply topically as 0 01/1301/08/2022 % ointment needed. nystatin (MYCOSTATIN) 1,000,000 Units as 0 201903/28/2022 100,000 unit/mL needed. suspension ofloxacin (OCUFLOX) 0.3 Administer 1 drop 0 10/0901/08/2022 % ophthalmic solution into each ear as needed. propranoloL (INDERAL) 40 Take 40 mg by mouth 2 0 08/31/2020 03/29/2022 mg tablet (two) times a day. sennosides-docusate Twice A Day 0 06/23/2020 04/02/2022 sodium (SENOKOT-S) 8.6-50 mg per tablet SUMAtriptan (IMITREX) 50 Take 50 mg by mouth 0 06/03/2022 mg tablet as needed. May repeat dose once in 2 hours if migraine unresolved. Do not exceed 200 mg in 24 hours. documented as of this encounter Procedure Notes Elizabeth Omalley APRN C.N.PBon, M.S.N. - 07/18/2021 2:45 PM CDTAssociated Order(s): Botox for Chronic Migraine Pre-Procedure Diagnose(s): Migraine Headache Chronic Post-Procedure Diagnose(s): Migraine Headache Chronic Botox for Chronic Migraine Date/Time: 07/18/2021 2:31 PM Performed by: Elizabeth Omalley APRN C.N.P., M.S.N. Authorized by: Preet Landeros M.D. Care team members present 1. Jimena Francois M.D. 3. Karen Foster L.P.N. PROCEDURE DETAILS Pre-procedure pain score: 0/10 Injection of: 100 Units onabotulinumtoxinA 100 unit 50 Units onabotulinumtoxinA 50 unit Needle gauge: 30 Needle length: 0.5 in Injection site details Pulp Grinder And Blender / Procerus muscle(s): 5 units into the left multi spindle operator muscle, 5 units into the right multi spindle operator muscle and 5 units into the procerus muscle (15 units total). Superior Frontalis muscle(s): 5 units into the left superior frontalis muscle and 5 units into the right superior frontalis muscle (2 injection sites per muscle) (10 units total). Temporalis muscle(s): 12.5 units into the left temporalis muscle and 12.5 units into the right temporalis muscle (2 injection sites per muscle) (25 units total). Splenius Capitis muscle(s): 12.5 units into the left splenius capitis muscle and 12.5 units into theright splenius capitis muscle (2 injection sites per muscle) (25 units total). Occipitalis muscle(s): 12.5 units into the left occipitalis muscle and 12.5 units into the right occipitalis muscle (2 injection sites per muscle) (25 units total). Trapezius muscle(s): 25 units into the left trapezius muscle and 25 units into the right trapezius muscle (3 injection sites per muscle) (50 units total). Total units wasted: 0 Total units injected: 150 CONSENT Consent obtained: written UNIVERSAL PROTOCOL All relevant documentation and testing were reviewed and available. All required blood products, implants, devices and or special equipment were made available as applicable. Pre-procedure verificationwas conducted and the correct site was marked if required. A fire risk assessment was done as applicable. The procedural time-out was conducted prior to performing the procedure [...] that is not covered by a third libertarian. Prior to treatment with Botox, the frequency of headaches was greater than 15 days per month and with significant impairment in the quality of life. Please see the initial Botox injection note and Headache consultation note regarding specific details of the headache history prior to the start of treatment. Any other daily migraine prophylactic treatments taken over the last 3 months: Propranolol Headache frequency when Botox is most effective (middle month in between rounds). Severe headache days per month: 3 days Wearing off phenomenon prior to this round of Botox: yes Duration: 3 weeks Patient finds Botox treatment helpful and wants to repeat the treatment? yes Patient had migraine headache frequency reduction by at least 7 days per month compared to pretreatment level, or migraine headache duration reduction of at least 100 hours per month compared to pretreatment level? yes POST-PROCEDURE DETAILS: Procedure completed successfully: yes Complications: no apparent complications COMMENTS I observed procedural injections which were correctly administered by Jimena Francois M.D. PLAN: The patient has had good response for treatment of their chronic migraine with onabotulinumtoxin A injections at 150 units every 12 weeks in that the patient had migraine headache frequency reduction by at least 7 days per month compared to pretreatment level, or migraine headache duration reduction of at least 100 hours per month compared to pretreatment level. Therefore, I have encouraged the patient to schedule their next round of injections 150 units in 12 weeks. documented in this encounter Plan of Treatment Upcoming Encounters Date Type Specialty Care Team Description 06/26/2022 Appointment Neurology Preet Landeros M.D . [address] [place] [phone] Bria Suh APRN, C.N.P., M.S.N. [address] [place] [phone] 07/25/2022 Appointment Radiology Preet Landeros M.D . [address] [place] [phone] (Wo rk) documented as of this encounter Procedures Procedure Name Priority Date/Time Associated Comments Diagnosis [place] CHEMODENERV FACIAL Routine 07/18/2021 2:31 PM Migraine Head ache Results for this TRIGEM NATALIE CDT Chronic procedure are i n the results section. documented in this encounter Results [place] CHEMODENERV FACIAL TRIGEM NATALIE (07/18/2021 2:31 PM CDT) Narrative MMODAL - 07/18/2021 2:31 PM CDT Elizabeth Omalley APRN C.N.P., M.S.N. ? 07/18/2021 ??3:58 PM Botox for Chronic Migraine Date/Time: 07/18/2021 2:31 PM Performed by: Elizabeth Omalley APRN, C .NPietro, M.S.N. Authorized by: Preet Landeros M.D. Care team members present 1. Jimena Francois M.D. 3. Karen Foster L.P.N. PROCEDURE DETAILS ?? Pre-procedure pain score: 0/10 Injection of: 100 Units onabotulinumtoxi nA 100 unit 50 Units onabotulinumtoxinA 50 unit Needle gauge: 30 Needle length: 0.5 in Injection site details Pulp Grinder And Blender / Procerus muscle(s): 5 units into the left multi spindle operator muscle, 5 units into the right multi spindle operator muscle and 5 units into the procerus muscle ??(15 units total). Superior Frontalis muscle(s): 5 units in to the left superior frontalis muscle and 5 units into the right superi or frontalis muscle ?? (2 injection sites per muscle) (10 units total). Temporalis muscle(s): 12.5 units into th e left temporalis muscle and 12.5 units into the right temporalis muscle ? ? (2 injection sites per muscle) ?? (25 units total). Splenius Capitis muscle(s): 12.5 units i nto the left splenius capitis muscle and 12.5 units into the right spl enius capitis muscle ?? (2 injection sites per muscle) ??(25 units total). Occipitalis muscle(s): 12.5 units into t he left occipitalis muscle and 12.5 units into the right occipitalis mu scle ??(2 injection sites per muscle) ??(25 units total). Trapezius muscle(s): 25 units into the l eft trapezius muscle and 25 units into the right trapezius muscle ??(3 inj ection sites per muscle) ??(50 units total). Total units wasted: 0 Total units injected: 150 CONSENT Consent obtained: written UNIVERSAL PROTOCOL All relevant documentation and testing w ere reviewed and available. All required blood products, implants, devic es and or special equipment were made available as applicable. Pre-proced ure verification was conducted and the correct site was marked if required. A fire risk assessment was done as applicable. The procedural time-out w as conducted prior to performing the procedure and confirmed in a procedu ral pause. PRE-PROCEDURE DETAILS ?? Reason for injections: [...] that is not covered by a third libertarian. ?? Prior to treatment with Botox, the [...] taken over the last 3 months: ??Propranolol Headache frequency when Botox is most ef fective (middle month in between rounds). Severe headache days per month: 3 days Wearing off phenomenon prior to this rou nd of Botox: yes Duration: 3 weeks Patient finds Botox treatment helpful an d wants to repeat the treatment? yes Patient had migraine headache frequency reduction by at least 7 days per month compared to pretreatment level, or migraine headache duration reduction of at least 100 hours per natasha h compared to pretreatment level? yes POST-PROCEDURE DETAILS: Procedure completed successfully: yes Complications: no apparent complications COMMENTS I observed procedural injections which w ere correctly administered by Jimena Francois M.D. PLAN: The patient has had good response for tr eatment of their chronic migraine with onabotulinumtoxin A injections at 1 50 units every 12 weeks in that the patient had migraine headache freque ncy reduction by at least 7 days per month compared to pretreatment level , or migraine headache duration reduction of at least 100 hours per natasha h compared to pretreatment level. ?? Therefore, I have encouraged the patient to schedule their next round of injections 150 units in 12 weeks. Preet Landeros M.D. NEUROLOGY ORDERABLES Performing Organization Address City/State/ZIP Code Phon e Number MMODAL MMODAL NA documented in this encounter Visit Diagnoses Diagnosis Migraine Headache Chronic documented in this encounter Administered Medications Inactive Administered Medications - up to 3 most recent administrations Medication Order MAR Action Action Date Dose Rate Site onabotulinumtoxinA injection 100 Given 07/18/2021 2:31 PM 100 Un its Units (BOTOX) CDT 100 Units, injection, One-Time Injection, Starting on Fri07/18/21 at 1431, For 1 dose onabotulinumtoxinA injection 50 Units Given 07/18/2021 2:31 PM C DT 50 Units (BOTOX COSMETIC) 50 Units, injection, One-Time Injection, Starting on Fri07/18/21 at 1431, For 1 dose documented in this encounter Additional Health Concerns Assessment Noted Time PHQ-9 Depression Total Score: 12 02/01/2021 9:43 AM CD T documented as of this encounter Care Teams Necktie Stitcher Relationship Specialty Start Date End Date Elsewhere, Pcp PCP - General Family Medicine 08/11/19 documented as of this encounter
--- OUTSIDE RECORDS SUMMARY | 2022-06-23 22:40 | XMS_ITS | Encounter Summary ---
:1970 Author Organization [facility] Address [address] [place] [address] Care Team Providers Name Role Phone Elsewhere, Pcp Primary Care Provider Unavailable Reason for Visit Reason Comments Med Refill Encounter Details Date Type Department Care Team Description 06/24/2021 Refill Division of Endocrinology in Reg Guillory M.D. Med Refill [place], [place] [address] [facility] [address] [place] [phone] (Wo rk) Social History Tobacco Use Types [...] or relatives? How often do you attend presybeterian or More than 4 times per year 06/02/2022 baptist services? Do you belong to any clubs or Yes 06/02/2022 organizations such as presybeterian groups, unions, fraternal or athletic groups, or [...] place to sleep or slept in a halfway (including now)? Education Answer Date Recorded What [...] Appointment Neurology Preet Landeros M.D . [address] [place] [phone] Bria Suh APRN, C.N.P., M.S.N. [address] [place] [phone] 07/25/2022 Appointment Radiology Preet Landeros M.D . [address] [place] [phone] (Wo rk) documented as of this encounter Visit Diagnoses Not on filedocumented in this encounter Additional Health Concerns Assessment Noted Time PHQ-9 Depression Total Score: 12 02/01/2021 9:43 AM CD T documented as of this encounter Care Teams Structural Mill Supervisor Relationship Specialty Start Date End Date Elsewhere, Pcp PCP - General Family Medicine 08/11/19 documented as of this encounter
--- OUTSIDE RECORDS SUMMARY | 2022-06-23 22:40 | XMS_ITS | Encounter Summary ---
:[address] [facility] Address [address] [place] [phone] Care Team Providers Name Role Phone Elsewhere, Pcp Primary Care Provider Unavailable Reason for Visit Reason Comments Sara Encounter Details Date Type Department Care Team Description 10/09/2021 Clinical Communication Department of Neurology Preet Landeros W8B/Garza in [facility] nadeen Pavon [address] [facility] [address] [place] [phone] Social History Tobacco Use Types Packs/Day Years [...] or relatives? How often do you attend adventist or More than 4 times per year 06/02/2022 christian services? Do you belong to any clubs or Yes 06/02/2022 organizations such as adventist groups, unions, fraternal or athletic groups, or [...] Appointment Neurology Preet Landeros M.D . [address] [place] [phone] Bria Suh APRN, C.N.P., M.S.N. [address] [place] [phone] 07/25/2022 Appointment Radiology Preet Landeros M.D . [address] [place] [phone] (Wo rk) documented as of this encounter Visit Diagnoses Not on filedocumented in this encounter Additional Health Concerns Assessment Noted Time PHQ-9 Depression Total Score: 12 02/01/2021 9:43 AM CD T documented as of this encounter Care Teams Carpenter Apprentice Relationship Specialty Start Date End Date Elsewhere, Pcp PCP - General Family Medicine 08/11/19 documented as of this encounter
--- OUTSIDE RECORDS SUMMARY | 2022-06-23 22:40 | XMS_ITS | Encounter Summary ---
:1970 Author Organization [facility] Address [address] [place] [phone] Care Team Providers Name Role Phone Elsewhere, Pcp Primary Care Provider Unavailable Reason for Visit Reason Comments reminder phone call Patient contacted for a cristi nder call to complete 3-month follow-up PROMIS-CAT questio nnashley. This is to collect Spine PROs prior to questionnaires expiring off their [facility] Patient Portal. Encounter Details Date Type Department Care Team Description 02/25/2022 Clinical Department of [place], reminder phone call Communication Spine in Jesusita Cottrell, (Patient conta cted [place], Museum Guide for a reminder call [place] [phone] to complete 3-month [address] [place] [address] (Work) follow-up PROMIS-CAT EXCELSIOR, [place] questionnaires . This [id number] is to collect Spine [phone] PROs prior to questionnaires expiring off [facility] Pat ient Portal.) Social History Tobacco Use Types Packs/Day Years [...] or relatives? How often do you attend yarsanism or More than 4 times per year 06/02/2022 muslim services? Do you belong to any clubs or Yes 06/02/2022 organizations such as yarsanism groups, unions, fraCarebase or athletic groups, or school groups? How [...] place to sleep or slept in a assisted (including now)? Education Answer Date Recorded What is the highest level of school Associate degree: anthony pretty, 05/17/2020 you have completed or the highest technical, or vocational p gilbertoram degree you have received? Sex Assigned at Date Recorded Male 01/30/2018 9:28 AM CDT documented as of this encounter Miscellaneous Notes Telephone Encounter - Jesusita [place] Paramedic - 02/25/2022 11:57 AM CDT Patient contacted for a reminder call to complete 3-month follow-up PROMIS-CAT questionnaires. This is to collect Spine PROs prior to questionnaires expiring off their [facility] Patient Portal. documented in this encounter Plan of Treatment Upcoming Encounters Date Type Specialty Care Team Description 06/26/2022 Appointment Neurology Preet Landeros M.D . [address] [place] [phone] Bria Suh APRN, C.N.P., M.S.N. [address] [place] [phone] 07/25/2022 Appointment Radiology Preet Landeros M.D . [address] [place], [place] [phone] (Wo rk) documented as of this encounter Visit Diagnoses Not on filedocumented in this encounter Additional Health Concerns Assessment Noted Time PHQ-9 Depression Total Score: 12 02/01/2021 9:43 AM CD T documented as of this encounter Care Teams Land Title Examiner Relationship Specialty Start Date End Date Elsewhere, Pcp PCP - General Family Medicine 08/11/19 documented as of this encounter
--- OUTSIDE RECORDS SUMMARY | 2022-06-23 22:40 | XMS_ITS | Encounter Summary ---
:1970 Author Organization [facility] Address [address] [place] [address] Care Team Providers Name Role Phone Elsewhere, Pcp Primary Care Provider Unavailable Reason for Referral Outpatient (Routine) - Closed Specialty Diagnoses / Procedures Referred By Contact Refer red To Contact Diagnoses Stenosis Spinal Cervical Jeanie Bello M.D. [facility] Procedures EMG [address] [place] [phone] Referral ID Status Reason Start Date Expiration Date Visits Requ ested Visits Authorized [id number] Closed 11/22/2021 11/22/2022 1 1 DEVELOPER Reason for Visit Outpatient (Routine) - Closed Specialty Diagnoses / Procedures Referred By Contact Refer red To Contact Neurological Surgery Diagnoses Stenosis Spinal Cervical Preet Landeros M.D. [facility] [address] [place] [address] Referral ID Status Reason Start Date Expiration Date Visits Requ ested Visits Authorized [id number] Closed 10/26/2021 10/26/2022 1 1 Encounter Details Date Type Department Care Team Description 11/22/2021 Comprehensive Visit Department of Jeanie Bello Stenosi s Spinal Cervical (Primary Dx); Neurologic Surgery [place] Morbid Obesity Body Mass Index 50.0-59.9 Adult (HCC); in [place], [facility]st [facility] Apnea Sleep Obstructive; [place], [place] Carcinoma Renal Cell Left (H CC); [address] [address] Diabetes Mellitus Type 2 Hyperglycemia ( HCC); [place], [place] [phone] Hyperlipidemia Mixed; [address] (Work) Tobacco Use [phone] Social History Tobacco Use Types Packs/Day Years [...] More than 4 times per year 06/02/2022 restorationism services? Do you belong to any clubs [...] AM CDT documented as of this encounter Consult Notes Jeanie Bello M.D. - 11/22/2021 9:30 AM CST SUBJECTIVE CHIEF COMPLAINT / REASON FOR VISIT Paul Murphy is a 51 y.o. male who presents for evaluation of cervical stenosis. HISTORY OF PRESENT ILLNESS I am seeing Mr. Murphy his at the request of Dr. Landeros for further advice regarding evaluation and management of cervical stenosis. The patient has begun to have spells. It is a little unclear when the started but likely late last year. The spells are not stereotyped. They can have a variety of symptoms. Alteration of consciousness may be part of them. In addition the patient may experience visual changes, dizziness, slurring of speech, numbness of the hands, etc.. In the course of the evaluation of the spells elsewhere a cervical MRI scan was done. This shows a measure of degenerative cervical disc disease with cervical stenosis. He was advised locally to undergo cervical surgery and is herefor additional advice. Additional history which the patient and his give me late in our interview emphasizes and focuses on the hand numbness. The hand numbness is happening with some regularity. Furthermore it happens at work. 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 This has affected his abilityto work. It is a little unclear to me though whether spells are having at work or the hand numbness is the principal issue with his ability to work The remaining details of the history and the exam are recorded. I note that the patient has multiplemedical comorbidities. He is morbidly obese. Past Surgical History: Procedure Laterality Date ??? APPENDECTOMY N/A 10/30/1984 Appendectomy ??? APPENDECTOMY Sep 1983 ??? HERNIA REPAIR 2012? PRIMARY REPAIR OF INCISIONAL HERNIA N/A 05/29/2011 Repair initial incisional or ventral hernia; incarcerated or strangulated.. REVIEW OF SYSTEMS: Eyes: Positive for visual problems. Gastrointestinal: Positive for diarrhea. Genitourinary: Positive for incontinence and urgency. Musculoskeletal: Positive for arthralgias, back pain and pain or stiffness in the joints. Neurological: Positive for loss of consciousness, light-headedness, numbness or shooting pain in hands, arms, legs, or feet, loss of balance or tendency to fall easily, headaches, blackouts, slurred speech and weakness in arms or legs. Psychiatric/Behavioral: Positive for feeling down, depressed, or hopeless over past two weeks, not being able to stop or control worrying over past two weeks and feeling nervous, anxious, or on edge inpast two weeks. The following systems were negative: Constitutional, Skin, ENT, CV, Respiratory, Hematologic OBJECTIVE PHYSICAL EXAM Neurological Exam The patient's neurologic examination is essentially normal. DIAGNOSTICS We do not have cervical spine x-rays. The cervical MRI shows degenerative cervical disc disease withsome canal narrowing and cord compression without signal abnormality particularly at C5 ASSESSMENT / PLAN #1 Stenosis Spinal Cervical #2 Morbid Obesity Body Mass Index 50.0-59.9 Adult ([facility]) #3 Apnea Sleep Obstructive #4 Carcinoma Renal Cell Left ([facility]) #5 Diabetes Mellitus Type 2 Hyperglycemia ([facility]) #6 Hyperlipidemia Mixed #7 Tobacco Use Plan: I have discussed the imaging findings in the context of the patient's symptoms. I do not know the cause for his spells but I do not feel there related to the neck. I do not know if his hand symptoms are related to the neck or reflect carpal tunnel or another diagnosis. I have asked the patient to undergo an EMG. Once these results are available I can follow up with the patient by telephone. All questions answered. 30 minutes in the room today in [id number] time largely used to residential treatment counselor the patient and help coordinate his care DEVELOPER documented in this encounter Plan of Treatment Upcoming Encounters Date Type Specialty Care Team Description 06/26/2022 Appointment Neurology Preet Landeros M.D . [address] [place] [phone] Bria Suh APRN, C.N.P., M.S.N. [address] [place] [phone] 07/25/2022 Appointment Radiology Preet Landeros M.D . [address] [place] [phone] (Wo rk) documented as of this encounter Results EMG (11/22/2021 1:39 PM QA DEVELOPER) Specimen (Source) Anatomical Collection Method Collection Time Re ceived Time Location / / Volume Laterality 11/22/2021 1:45 PM QA DEVELOPER Narrative EMG - 11/22/2021 4:07 PM QA DEVELOPER 22-Nov-2021 ? Electromyography ? Final Report Study Number: 1 EMG Physician Practice Market Manager: Garland Hanks 127 or [phone] Referred by: Jeanie BELLO (127 or [phone]) Referred for: bilateral hand numbness; d ropping things Referral Code: ?037 RX: 211 ??315 SUMMARY: Prior to starting the procedure , the patient's identity was verified, pertinent available records were reviewed, the nature of the procedure was explained, the appropriate sites of the exam were confirmed directly with the pa tient, and a pre-procedure pause was performed for final verification of all of the above. ?? The right median motor study showed a fa irly prolonged distal latency with decreased amplitude and slowed conduction velocity. ??The right ulnar motor study was normal. ??No response wa s able to be elicited from the right median sensory study but the right ulnar study was normal. ?? In the left upper limb, there was a prolonged distal latency the left median motor study with a prolonged distal latency and decreased amplitude in the left median sensory study. ??The left ul sharath sensory study was normal. ??On needle examination, there were fibrillation potentials in the righ t abductor pollicis brevis. ??There was a single fibrillation potential in first dorsal i nterosseous. ??Motor unit potentials showed high amplitude, long duration, and increased complexity in right C8 innervated muscles including abductor pollicis brevis, first dorsal interosseous, and e xtensor indices proprius. CLINICAL INTERPRETATION: This is an abno rmal study. ??There are electrodiagnostic findings of bilateral median neuropathies at the [facility] st (carpal tunnel syndrome) which is moderate in severity on the left and severe on the right. ??T here are also findings of a superimposed chronic right C8 radiculopathy. ??The fibrillation potent ials in abductor pollicis brevis is likely secondary to the median neuropathy at the wrist. ??The si ngle fibrillation potential seen in first dorsal interosseous could be suggestive of inco mplete reinnervation from the C8 radiculopathy. I have reviewed the findings of the examin ing physician and agree with the interpretation. Nany Yates/Star Hanks (127 or [phone]) /[facility] NERVE CONDUCTIONS ??Record Rep ?? Normal ??Normal Distal Normal F-Wave F-Wave Temp Nerve Type Site Stim Side Amp Amp CV CV Lat Lat Lat Est (??C) Median Motor APB ??L 6.8 (> 4.0) 49 (> 4 8) 6.9 (< 4.5) ?? 32.1 Median Motor APB ??R 1.0 (> 4.0) 34 (> 4 8) 11.7 (< 4.5) ?? 32.3 Ulnar Motor ADM ??R 11.0 (> 6.0) 54 (> 5 1) 2.7 (< 3.6) ?? 31.8 Median Sensory Dig II ??L 6 (> 15.0) ??( > 56) 6.0 (< 3.6) ?? 32.1 Median Sensory Dig II ??R NR (> 15.0) ?? (> 56) NR (< 3.6) ?? 31.4 Ulnar Sensory Dig V ??L 26 (> 10.0) ??(> 54) 2.6 (< 3.1) ?? 32.0 Ulnar Sensory Dig V ??R 29 (> 10.0) 57 ( > 54) 2.5 (< 3.1) ?? 32.2 NEEDLE EMG ??Ins Spont ??MUP ??Recruitment ??Durat ion ??Amplitude ??Phases ?? Muscle Side Act Fib Fasc Normal Activ Re duced Rapid Long Short High Low % Turns Abductor pollicis brevis R INC ++ 0 ?? + + ??++ ??++ ??25% + First dorsal interosseous R NL +/- 0 ? + ??+ ??25% + Extensor indicis proprius R NL 0 0 ?? ++ ??++ ??++ ??15% + Pronator teres R NL 0 0 NL ? Biceps brachii R NL 0 0 NL ? Deltoid R NL 0 0 NL ? Triceps brachii R NL 0 0 NL ? This interpretation has been electron ically signed: Garland Hanks DO, PhD at 11/22/2021 4:05:55 PM QA DEVELOPER Procedure Note Dereck Hanks D.O., Ph.D. - 022 22-Nov-2021 Electromyography Final Repor t Study Number: 1 EMG Physician Practice Market Manager: Garland Hanks 127 or [phone] Referred by: Jeanie BELLO (127 or [phone]) Referred for: bilateral hand numbness; d jennie carter Referral Code: 037 RX: 211 315 SUMMARY: Prior to starting the procedure , the patient's identity was verified, pertinent available records were reviewed, the nature of the procedure was explained, the appropriate sites of the exam were confirmed directly with the pa tient, and a pre-procedure pause was performed for final verification of all of the above. The right median motor study showed a fa irly prolonged distal latency with decreased amplitude and slowed conduction velocity. The right ulnar motor study was normal. No response was able to be elicited from the right median sensory study but the right ulnar study was normal. In the left upper limb, there was a prolonged distal latency the left median motor study with a prolonged distal latency and decreased amplitude in the left median sensory study. The left ulna r sensory study was normal. On needle examination, there were fibrillation potentials in the righ t abductor pollicis brevis. There was a single fibrillation potential in first dorsal i nterosseous. Motor unit potentials showed high amplitude, long duration, and increased complexity in right C8 innervated muscles including abductor pollicis brevis, first dorsal interosseous, and e xtensor indices proprius. CLINICAL INTERPRETATION: This is an abno rmal study. There are electrodiagnostic findings of bilateral median neuropathies at the [facility] st (carpal tunnel syndrome) which is moderate in severity on the left and severe on the right. The re are also findings of a superimposed chronic right C8 radiculopathy. The fibrillation potentia ls in abductor pollicis brevis is likely secondary to the median neuropathy at the wrist. The sing le fibrillation potential seen in first dorsal interosseous could be suggestive of inco mplete reinnervation from the C8 radiculopathy. I have reviewed the findings of the examin ing physician and agree with the interpretation. aNny Yates/Star Hanks (127 or [phone]) /AMR NERVE CONDUCTIONS Record Rep Normal Normal Distal Normal F-Wave F-Wave Temp Nerve Type Site Stim Side Amp Amp CV CV Lat Lat Lat Est (??C) Median Motor APB L 6.8 (> 4.0) 49 (> 48) 6.9 (< 4.5) 32.1 Median Motor APB R 1.0 (> 4.0) 34 (> 48) 11.7 (< 4.5) 32.3 Ulnar Motor ADM R 11.0 (> 6.0) 54 (> 51) 2.7 (< 3.6) 31.8 Median Sensory Dig II L 6 (> 15.0) (> 56 ) 6.0 (< 3.6) 32.1 Median Sensory Dig II R NR (> 15.0) (> 5 6) NR (< 3.6) 31.4 Ulnar Sensory Dig V L 26 (> 10.0) (> 54) 2.6 (< 3.1) 32.0 Ulnar Sensory Dig V R 29 (> 10.0) 57 (> 54) 2.5 (< 3.1) 32.2 NEEDLE EMG Ins Spont MUP Recruitment Duration Ampl itude Phases Muscle Side Act Fib Fasc Normal Activ Re duced Rapid Long Short High Low % Turns Abductor pollicis brevis R INC ++ 0 ++ + + ++ 25% + First dorsal interosseous R NL +/- 0 + + 25% + Extensor indicis proprius R NL 0 0 ++ ++ ++ 15% + Pronator teres R NL 0 0 NL Biceps brachii R NL 0 0 NL Deltoid R NL 0 0 NL Triceps brachii R NL 0 0 NL This interpretation has been electron ically signed: Garland Hanks, , PhD at 11/22/2021 4:05:55 PM QA DEVELOPER Jeanie Bello M.D. NEUROLOGY ORDERABLES Performing Organization Address City/State/ZIP Code Phon e Number EMG documented in this encounter Visit Diagnoses Diagnosis Stenosis Spinal Cervical - Primary Morbid Obesity Body Mass Index 50.0-59.9 Adult (HCC) Apnea Sleep Obstructive Carcinoma Renal Cell Left (HCC) Diabetes Mellitus Type 2 Hyperglycemia ( HCC) Hyperlipidemia Mixed Tobacco Use Stenosis Spinal Cervical documented in this encounter Additional Health Concerns Assessment Noted Time PHQ-9 Depression Total Score: 12 02/01/2021 9:43 AM CD T documented as of this encounter Care Teams Nitriles Lab Technician Relationship Specialty Start Date End Date Elsewhere, Pcp PCP - General Family Medicine 08/11/19 documented as of this encounter
--- OUTSIDE RECORDS SUMMARY | 2022-06-23 22:40 | XMS_ITS | Encounter Summary ---
:1970 Author Organization [facility] Address [address] [place] [address] Care Team Providers Name Role Phone Elsewhere, Pcp Primary Care Provider Unavailable Reason for Visit Reason Comments Pre-visit Intake Encounter Details Date Type Department Care Team Description 03/05/2022 Clinical Communication Preoperative Rosa Rodriguez Pre-v isit Intake Evaluation Center in , [place] C.N.P., [address] [place], [place] [address], [place] [address] [place] [phone] [place], [place] [phone] [place] [address] Social History Tobacco Use Types Packs/Day Years [...] or relatives? How often do you attend scientology or More than 4 times per year 06/02/2022 sikh services? Do you belong to any clubs or Yes 06/02/2022 organizations such as scientology groups, unions, fraternal or athletic groups, or [...] place to sleep or slept in a nursing home (including now)? Education Answer Date Recorded What [...] Neurology Preet Landeros M.D . [address] [place] [phone] Bria Suh, BRET, C.N.P., M.S.N. [address] [place] [phone] 07/25/2022 Appointment Radiology Preet Landeros M.D . [address] [place] [phone] (Wo rk) documented as of this encounter Visit Diagnoses Not on filedocumented in this encounter Additional Health Concerns Assessment Noted Time PHQ-9 Depression Total Score: 12 02/01/2021 9:43 AM CD T documented as of this encounter Care Teams Junior Linux Systems Administrator Relationship Specialty Start Date End Date Elsewhere, Pcp PCP - General Family Medicine 08/11/19 documented as of this encounter
--- OUTSIDE RECORDS SUMMARY | 2022-06-23 22:40 | XMS_ITS | Encounter Summary ---
:1970 Author Organization [facility] Address [address] [place] [address] Care Team Providers Name Role Phone Elsewhere, Pcp Primary Care Provider Unavailable Encounter Details Date Type Department Care Team Description 11/26/2021 Documentation Department of Neurologic Jeanie Barriga M.D. Surgery in [place], [facility] [address]st [place], [place] [address] [place] [phone] [place] [phone] Social History Tobacco Use Types Packs/Day Years [...] or relatives? How often do you attend islam or More than 4 times per year 06/02/2022 druze services? Do you belong to any clubs or Yes 06/02/2022 organizations such as islam groups, unions, fraternal or athletic groups, or [...] place to sleep or slept in a care home (including now)? Education Answer Date Recorded What is the highest level of school Associate degree: anthony pretty, 05/17/2020 you have completed or the highest technical, or vocational p katie degree you have received? Sex Assigned at Date Recorded Male 01/30/2018 9:28 AM CDT documented as of this encounter Progress Notes Jeanie Barriga M.D. - 11/26/2021 3:19 PM CDT I spoke to the patient and his by telephone. Last week he underwent an EMG. This clearly shows bilateral severe carpal tunnel. I have discussed the findings with . We believe this is the most likely explanation for his hand symptoms. I suggested that he discuss this with my colleague and if Dr. Solorzano agrees to go ahead with treatment of the carpal tunnel. Pending the outcomewe can revisit the cervical spine. The patient would like to proceed and we will organize. documented in this encounter Plan of Treatment Upcoming Encounters Date Type Specialty Care Team Description 06/26/2022 Appointment Neurology Preet Landeros M.D . [address] [place] [phone] Bria Suh APRN, C.N.P., M.S.N. [address] [place] [phone] 07/25/2022 Appointment Radiology Preet Landeros M.D . [address] [place], [place] [phone] (Wo rk) documented as of this encounter Visit Diagnoses Not on filedocumented in this encounter Additional Health Concerns Assessment Noted Time PHQ-9 Depression Total Score: 12 02/01/2021 9:43 AM CD T documented as of this encounter Care Teams Seam Rubber Relationship Specialty Start Date End Date Elsewhere, Pcp PCP - General Family Medicine 08/11/19 documented as of this encounter
--- OUTSIDE RECORDS SUMMARY | 2022-06-23 22:40 | XMS_ITS | Encounter Summary ---
:1970 Author Organization [facility] Address [address] [place] [address] Care Team Providers Name Role Phone Elsewhere, Pcp Primary Care Provider Unavailable Encounter Details Date Type Department Care Team Description 02/13/2022 Orders Only Department of Heather, Kiran Cottrell, Carpal Pierce jennifer Syndrome Neurologic Surgery in [place].N. Bilateral (Primary Dx) [place], [place] [address] [facility] [address] [place] [phone] Social History Tobacco Use Types Packs/Day Years [...] or relatives? How often do you attend jewish or More than 4 times per year 06/02/2022 cheondoism services? Do you belong to any clubs or Yes 06/02/2022 organizations such as jewish groups, unions, fraternal or athletic groups, or [...] Appointment Neurology Preet Landeros M.D . [address] [place] [phone] Bria Suh APRN, C.N.P., M.S.N. [address] [place] [phone] 07/25/2022 Appointment Radiology Preet Landeros M.D . [address] [place] [phone] (Wo rk) documented as of this encounter Visit Diagnoses Diagnosis Carpal Tunnel Syndrome Bilateral - Prima ry documented in this encounter Additional Health Concerns Assessment Noted Time PHQ-9 Depression Total Score: 12 02/01/2021 9:43 AM CD T documented as of this encounter Care Teams Sole Seamer Relationship Specialty Start Date End Date Elsewhere, Pcp PCP - General Family Medicine 08/11/19 documented as of this encounter
--- OUTSIDE RECORDS SUMMARY | 2022-06-23 22:40 | XMS_ITS | Encounter Summary ---
:1970 Author Organization [facility] Address [address] [place] [address] Care Team Providers Name Role Phone Elsewhere, Pcp Primary Care Provider Unavailable Reason for Referral Outpatient (Routine) - Closed Specialty Diagnoses / Procedures Referred By Contact Refer red To Contact Neurology Preet Landeros M.D. [facility] [address] [place] [address] Referral ID Status Reason Start Date Expiration Date Visits Requ ested Visits Authorized [id number] Closed 11/15/2021 11/15/2022 1 1 Scheduling Instructions 60 min. Coordinate with Botox utpatient (Routine) - Authorized Specialty Diagnoses / Procedures Referred By Contact Refer red To Contact Diagnoses Migraine Headache Chronic Preet Landeros M.D. [facility] Procedures Botox for Chronic Migraine PA CHEMODENERV FACIAL TRIGEM NATALIE PA INJECTION,ONABOTULINUMTOXINA 200 units [address] [place], [place] [address] Referral ID Status Reason Start Date Expiration Date Visits V isits Requested Authorized [id number] Authorized 11/15/2021 11/15/2022 12 12 ER OPERATOR Reason for Visit Outpatient (Routine) - Closed Specialty Diagnoses / Procedures Referred By Contact Refer red To Contact Neurology Preet Landeros M.D. [facility] [address] [place] [address] Referral ID Status Reason Start Date Expiration Date Visits Requ ested Visits Authorized [id number] Closed 01/31/2021 01/31/2022 1 1 Encounter Details Date Type Department Care Team Description 11/15/2021 Office Visit Department of Preet Landeros, Migraine Heada elsie Neurology in M.D. Chronic (Primary Dx) [place], [place] 200 [facility] 200 [place] [phone] Social History Tobacco Use Types Packs/Day Years [...] or relatives? How often do you attend zoroastrian or More than 4 times per year 06/02/2022 sabianist services? Do you belong to any clubs or Yes 06/02/2022 organizations such as zoroastrian groups, unions, fraternal or athletic groups, or [...] place to sleep or slept in a retirement (including now)? Education Answer Date Recorded What is the highest level of school Associate degree: anthony pretty, 05/17/2020 you have completed or the highest technical, or vocational p katie degree you have received? Sex Assigned at Date Recorded Male 01/30/2018 9:28 AM CDT documented as of this encounter Last Filed Vital Signs Vital Sign Reading Time Taken Comments Blood Pressure 129/84 11/15/2021 9:54 AM DOSIER OPERATOR Pulse 69 11/15/2021 9:54 AM DOSIER OPERATOR Temperature - - Respiratory Rate - - Oxygen Saturation - - Inhaled Oxygen Concentration - - Weight 142 kg (313 lb 0.9 oz) 11/15/2021 9:54 AM DOSIER OPERATOR Height 165 cm (5' 4.96) 11/15/2021 9:54 AM DOSIER OPERATOR Body Mass Index 52.16 11/15/2021 9:54 AM DOSIER OPERATOR documented in this encounter Progress Notes Preet Landeros M.D. - 11/15/2021 10:00 AM CST SUBJECTIVE Chief Complaint: Cervical stenosis. Follow-up on headache. HPI:Paul Murphy returns today for follow-up. I last saw him January 31, 2021. He continues to have daily or near daily headache on Botox but on Botox the headaches are more than 50% improved in pain intensity overall. He uses naproxen sumatriptan as needed. His main reason to come today is his requesting a 2nd opinion about possible surgery for cervical stenosis. At the end of September of this year he had a particularly severe headache which was associated with loss of balance. He was evaluated locally and brisk deep tendon reflexes were noted. Cervical spine MRI showed cervical stenosis for which he has been recommended to get surgery. He would like a 2nd opinion about this here at [facility] in the Department of Neurosurgery. He denies urine or bowel incontinence. He does have intermittent tingling in the arms and hands since September of this year. He also has noted intermittent numbness in the left lower extremity. MRI October 06, 2021 was interpreted here as IMPRESSION: Advanced spinal canal stenosis at C5-6 with moderate to advanced right neural foraminal stenosis. No cord signal abnormality.. OBJECTIVE EXAM: He was able to give a detailed history. Cranial nerve exam was normal. There is normal muscle tone and strength throughout. Biceps and patellar deep tendon reflexes are symmetrically brisk (+1) but it tendon reflexes elsewhere are normal. No Babinski signs. No Kenyatta signs. There is normal joint position sense and superficial pain sensation throughout. There is no sensory level. Coordination exam is normal in the upper and lower extremities. Gait was normal. ASSESSMENT / PLAN #1 Advanced spinal canal stenosis at C5-6 with moderate to advanced right neural foraminal stenosis Some of his symptoms may be occurring on the basis of his cervical stenosis. On examination he does have some brisk reflexes but there is no overt myelopathy. He requests a 2nd surgical opinion. He is scheduled to see Dr. Barriga in the Department of Neurosurgery here. #2 Chronic migraine with aura (visual) For prophylaxis he will continue Botox injections and I have recommended to increase the dose to 200units every 3 months. No change in acute treatment with naproxen and sumatriptan as needed. He will follow with my headache METAL FENCE ERECTOR colleagues. #3 Severe obstructive sleep apnea Management per my colleagues in the Sleep Clinic. #4 Depression and anxiety Management per my colleagues in Psychiatry. #5 Bilateral hand pain He could not complete the evaluation I had recommended in the past. If after addressing his cervicalspine stenosis he continues to be symptomatic I would favor an evaluation with EMG and consult in the Hand Clinic. He expressed understanding. PATIENT EDUCATION Ready to learn, no apparent learning barriers were identified; learning preferences include listening. Explained diagnosis and treatment plan; patient expressed understanding of the content. ER OPERATOR documented in this encounter Plan of Treatment Upcoming Encounters Date Type Specialty Care Team Description 06/26/2022 Appointment Neurology Preet Landeros M.D . [address] [place] [address] Bria Suh APRN, C.N.P., M.S.N. [address] [place] [address] 07/25/2022 Appointment Radiology Preet Landeros M.D . [address] [place], [place] [phone] (Wo rk) Scheduled Orders Name Type Priority Associated Diagnoses Order S chedule Botox for Chronic Procedures Routine Migraine Headache - Vidya ry 12 weeks for 12 Migraine Chronic Occurrences sta rting 11/15/2021 unti l 11/15/2024, 1 c ompleted Scheduled Referrals Name Type Priority Associated Diagnoses Order S chedule Neurology office Outpatient Referral Routine Expe cted: visit (clinic) 02/15/2022 (Approximate), Expires: 02/15/2023 documented as of this encounter Results PA CHEMODENERV FACIAL TRIGEM NAATLIE (03/29/2022 10:26 AM CDT) Narrative MMODAL - [...] Needle length: 0.5 in Injection site details Blower And Compressor Assembler / Procerus muscle(s): 5 units into the left auto parker muscle, 5 units into the right auto parker muscle and 5 units into the procerus [...] that is not covered by a third constitution party. ?? Prior to treatment with Botox, the [...] fellow participated in the procedure, and the oracle database consultant was present for the entire procedure. Preet Landeros M.D. NEUROLOGY ORDERABLES Performing Organization Address City/State/ZIP Code Phon e Number MMODAL MMODAL NA documented in this encounter Visit Diagnoses Diagnosis Migraine Headache Chronic - Primary Migraine Headache Chronic documented in this encounter Additional Health Concerns Assessment Noted Time PHQ-9 Depression Total Score: 12 02/01/2021 9:43 AM CD T documented as of this encounter Care Teams Nursing Clerk Relationship Specialty Start Date End Date Elsewhere, Pcp PCP - General Family Medicine 08/11/19 documented as of this encounter
--- OUTSIDE RECORDS SUMMARY | 2022-06-23 22:40 | XMS_ITS | Encounter Summary ---
:1970 Author Organization [facility] Address [address] [place] [address] Care Team Providers Name Role Phone Elsewhere, Pcp Primary Care Provider Unavailable Reason for Referral Outpatient (Routine) - Closed Specialty Diagnoses / Procedures Referred By Contact Refer red To Contact Neurology Jeanie Barriga M.D. Garza, Ivan, M.D. [address] [place] [address] [address] [place] [phone] [place] [address] Fax: Referral ID Status Reason Start Date Expiration Date Visits Requ ested Visits Authorized [id number] Closed 02/04/2022 02/04/2023 1 1 utpatient (Routine) - Closed Specialty Diagnoses / Procedures Referred By Contact Refer red To Contact Neurological Surgery Jeanie Barriga M.D. [facility] [address] [place] [address] Referral ID Status Reason Start Date Expiration Date Visits Requ ested Visits Authorized [id number] Closed 02/04/2022 02/04/2023 1 1 RI/CAT/PET Scan (Routine) - Modified Order Specialty Diagnoses / Procedures Referred By Contact Refer red To Contact Radiology Diagnoses Stenosis Spinal Cervical Jeanie Barriga M.D. [facility] Procedures MR Cervical Spine without IV Contrast MR Cervical Spine without IV Contrast [address] [place] [address] Referral ID Status Reason Start Date Expiration Date Visits V isits Requested Authorized [id number] Modified 02/04/2022 02/04/2023 1 1 Order Encounter Details Date Type Department Care Team Description 02/04/2022 Orders Only Department of Chilango, Mindi Stenosis Spinal Neurologic Surgery in J, R.N. Cervical [place], [place] [address] [facility] [address] [place] [phone] Social History Tobacco Use Types Packs/Day Years [...] or relatives? How often do you attend worship or More than 4 times per year 06/02/2022 jain services? Do you belong to any clubs or Yes 06/02/2022 organizations such as worship groups, unions, fraternal or athletic groups, or [...] the highest level of school Associate degree: clifzeny pretty, 05/17/2020 you have completed or the highest technical, or vocational frances wilson degree you have received? Sex Assigned at Date Recorded Male 01/30/2018 9:28 AM CDT documented as of this encounter Plan of Treatment Upcoming Encounters Date Type Specialty Care Team Description 06/26/2022 Appointment Neurology Preet Landeros M.D . [address] [place] [phone] Bria Suh APRN, C.N.P., M.S.N. [address] [place] [phone] 07/25/2022 Appointment Radiology Preet Landeros M.D . [address] [place] [phone] (Wo rk) Scheduled Orders Name Type Priority Associated Diagnoses Order S chedule MR Cervical Spine Imaging RAD - Routine (most Stenosis Spinal Expected: without IV Contrast inpatients and all Cervical , outpatients) Expires: 02/04/2023 Scheduled Referrals Name Type Priority Associated Order Schedule Diagnoses Neurological Surgery Outpatient Referral Routine Expected: office visit (clinic) 2021, Expires: 05/07/2023 Return to provider in Outpatient Referral Routine Expected: another specialty 06/03/2022 , Expires: 05/07/2023 documented as of this encounter Visit Diagnoses Diagnosis Stenosis Spinal Cervical documented in this encounter Additional Health Concerns Assessment Noted Time PHQ-9 Depression Total Score: 12 02/01/2021 9:43 AM CD T documented as of this encounter Care Teams Managing Partner Digital Content Marketing [place] Relationship Specialty Start Date End Date Elsewhere, Pcp PCP - General Family Medicine 08/11/19 documented as of this encounter
--- OUTSIDE RECORDS SUMMARY | 2022-06-23 22:40 | XMS_ITS | Encounter Summary ---
:1970 Author Organization [facility] Address [address] [place] [address] Care Team Providers Name Role Phone Elsewhere, Pcp Primary Care Provider Unavailable Reason for Referral Outpatient (Routine) - Closed Specialty Diagnoses / Procedures Referred By Contact Refer red To Contact Diagnoses Migraine Headache Chronic Preet Landeros M.D. [facility] Procedures Botox for Chronic Migraine VA INJECTION,ONABOTULINUMTOXINA VA CHEMODENERV FACIAL TRIGEM NATALIE Botox (Onabotulinumtoxina) J0585 150 units every 12 weeks [address] [place], [place] [phone] Referral ID Status Reason Start Date Expiration Date Visits Requ ested Visits Authorized [id number] Closed 05/17/2020 05/17/2022 12 12 HANDISING DIRECTOR Reason for Visit Outpatient (Routine) - Closed Specialty Diagnoses / Procedures Referred By Contact Refer red To Contact Diagnoses Migraine Headache Chronic Preet Landeros M.D. [facility] Procedures Botox for Chronic Migraine VA INJECTION,ONABOTULINUMTOXINA VA CHEMODENERV FACIAL TRIGEM NATALIE Botox (Onabotulinumtoxina) J0585 150 units every 12 weeks [address] [place], [place] [address] Referral ID Status Reason Start Date Expiration Date Visits Requ ested Visits Authorized [id number] Closed 05/17/2020 05/17/2022 12 12 Encounter Details Date Type Department Care Team Description 10/10/2021 Hospital Encounter Department of Preet Landeros M.D. [address] [place] [phone] Migraine Headache Neurology in Gokul Boyd M.D. [address] [place] [phone] Chronic [place], [place] [address] [place] [phone] Social History Tobacco Use Types Packs/Day Years [...] or relatives? How often do you attend anglican or More than 4 times per year 06/02/2022 baptism services? 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 ONEWelVUUCH VERIO strips Test blood glucose 8 720 strip 3 05/16 times per day valsartan (DIOVAN) 80 mg TAKE 1 TABLET (80 MG 90 tablet 3 0 10/20/2018 tabletIndications: TOTAL) BY MOUTH Hypertension Essential DAILY. Primary amoxicillin (AMOXIL) 875 Take 875 mg by [...] mupirocin (BACTROBAN) 2 Apply topically as 0 05/1 11/202001/08/2022 % ointment needed. nystatin (MYCOSTATIN) 1,000,000 Units as 0 201903/28/2022 100,000 unit/mL needed. suspension ofloxacin (OCUFLOX) 0.3 Administer 1 drop 0 10/0901/08/2022 % ophthalmic solution into each ear as needed. propranoloL (INDERAL) 40 Take 40 mg by mouth 2 0 08/31/2020 03/29/2022 mg tablet (two) times a day. sennosides-docusate Twice A Day 0 06/23/2020 04/2 02/2022 sodium (SENOKOT-S) 8.6-50 mg per tablet SUMAtriptan (IMITREX) 50 Take 50 mg by mouth 0 06/03/2022 mg tablet as needed. May repeat dose once in 2 hours if migraine unresolved. Do not exceed 200 mg in 24 hours. documented as of this encounter Procedure Notes Gokul Boyd M.D. - 10/10/2021 1:00 PM CSTAssociated Order(s): Botox for Chronic Migraine Pre-Procedure Diagnose(s): Migraine Headache Chronic Post-Procedure Diagnose(s): Migraine Headache Chronic Botox for Chronic Migraine Date/Time: 10/10/2021 1:06 PM Performed by: Gokul Boyd M.D. Authorized by: Preet Landeros M.D. Care team members present 1. Clarice Alejandro, L.P.NBon PROCEDURE DETAILS Pre-procedure pain score: 3/10 Injection of: 100 Units onabotulinumtoxinA 100 unit 50 Units onabotulinumtoxinA 50 unit Needle gauge: 30 Needle length: 0.5 in Injection site details Immersion Metalcleaner / Procerus muscle(s): 5 units into the left configuration engineer muscle, 5 units into the right configuration engineer muscle and 5 units into the procerus [...] not covered by a third constitution party. Prior to treatment with Botox, the frequency [...] in between rounds). Headache days per month: 5 days Severe headache days per month: 1 [...] month compared to pretreatment level? yes POST-PROCEDURE DETAILS Procedure completed successfully: yes Complications: [...] of injections 150 units in 12 weeks. HANDISING DIRECTOR documented in this encounter Plan of Treatment Upcoming Encounters Date Type Specialty Care Team Description 06/26/2022 Appointment Neurology Preet Landeros M.D . [address] [place] [phone] Bria Suh APRN, C.N.P., M.S.N. [address] [place] [phone] 07/25/2022 Appointment Radiology Preet Landeros M.D . [address] [place] [phone] (Wo rk) documented as of this encounter Procedures Procedure Name Priority Date/Time Associated Comments Diagnosis VA CHEMODENERV FACIAL Routine 10/10/2021 1:06 PM Migraine Head ache Results for this TRIGEM NATALIE MERCHANDISING DIRECTOR Chronic procedure are i n the results section. documented in this encounter Results VA CHEMODENERV FACIAL TRIGEM NATALIE (10/10/2021 1:06 PM MERCHANDISING DIRECTOR) Narrative MMODAL - 10/10/2021 1:06 PM MERCHANDISING DIRECTOR Gokul Boyd M.D. ? 10/10/2021 ??1:18 PM Botox for Chronic Migraine Date/Time: 10/10/2021 1:06 PM Performed by: Gokul Boyd M.D. Authorized by: Preet Landeros M.D. Care team members present 1. Clarice Alejandro, L.P.NBon PROCEDURE DETAILS ?? Pre-procedure pain score: 3/10 Injection of: 100 Units onabotulinumtoxi nA 100 unit 50 Units onabotulinumtoxinA 50 unit Needle gauge: 30 Needle length: 0.5 in Injection site details Immersion Metalcleaner / Procerus muscle(s): 5 units into the left configuration engineer muscle, 5 units into the right configuration engineer muscle and 5 units into the procerus [...] in between rounds). Headache days per month: 5 days Severe headache days per month: 1 [...] h compared to pretreatment level? yes POST-PROCEDURE DETAILS ?? Procedure completed successfully: yes [...] Dose Rate Site onabotulinumtoxinA injection 100 Given 10/10/2021 1:06 PM 100 Un its Units (BOTOX) MERCHANDISING DIRECTOR 100 Units, injection, One-Time Injection, Starting on Fri10/10/21 at 1306, For 1 dose onabotulinumtoxinA injection 50 Units Given 10/10/2021 1:[address] 50 Units (BOTOX COSMETIC) 50 Units, injection, One-Time Injection, Starting on Fri10/10/21 at 1306, For 1 dose documented in this encounter Additional Health Concerns Assessment Noted Time PHQ-9 Depression Total Score: 12 02/01/2021 9:43 AM CD T documented as of this encounter Care Teams Control Cabinet Assembler Relationship Specialty Start Date End Date Elsewhere, Pcp PCP - General Family Medicine 08/11/19 documented as of this encounter
--- OUTSIDE RECORDS SUMMARY | 2022-06-23 22:40 | XMS_ITS | Encounter Summary ---
:1970 Author Organization [facility] Address [address] [place] [address] Care Team Providers Name Role Phone Elsewhere, Pcp Primary Care Provider Unavailable Reason for Referral Outpatient (Routine) - Closed Specialty Diagnoses / Procedures Referred By Contact Refer red To Contact Neurological Surgery Diagnoses Carpal Tunnel Syndrome Bilateral Jeanie Barriga M.D. [facility] [address] [place] [address] Referral ID Status Reason Start Date Expiration Date Visits Requ ested Visits Authorized [id number] Closed 11/26/2021 11/26/2022 [address] Solorzano Encounter Details Date Type Department Care Team Description 11/26/2021 Orders Only Department of Elliott Gamino, Carpal Tunnel Syndrome Neurologic Surgery in M.S.N., R. N. Bilateral (Primary Dx) [place], [place] [address] [place] [address] [address] [place] [phone] Social History Tobacco Use Types Packs/Day Years [...] or relatives? How often do you attend catholic or More than 4 times per year 06/02/2022 buddhist services? Do you belong to any clubs or Yes 06/02/2022 organizations such as catholic groups, unions, fraternal or athletic groups, or [...] place to sleep or slept in a mcc (including now)? Education Answer Date Recorded What [...] Appointment Neurology Preet Landeros M.D . 200 [place] [phone] Bria Suh APRN, C.N.P., M.S.N. [address] [place] [phone] 07/25/2022 Appointment Radiology Preet Landeros M.D . [address] [place], [place] [phone] (Wo rk) Scheduled Referrals Name Type Priority Associated Order Schedule Diagnoses Neurological Surgery Outpatient Referral Routine Carpal Tunnel Expected: - Peripheral nerve Syndrome Bilateral consult (clinic) (Approximat e), Expires: 02/26/2023 documented as of this encounter Visit Diagnoses Diagnosis Carpal Tunnel Syndrome Bilateral - Prima ry documented in this encounter Additional Health Concerns Assessment Noted Time PHQ-9 Depression Total Score: 12 02/01/2021 9:43 AM CD T documented as of this encounter Care Teams Manipulative Therapy Specialist Relationship Specialty Start Date End Date Elsewhere, Pcp PCP - General Family Medicine 08/11/19 documented as of this encounter
--- OUTSIDE RECORDS SUMMARY | 2022-06-23 22:40 | XMS_ITS | Encounter Summary ---
:1970 Author Organization [facility] Address [address] [place] [address] Care Team Providers Name Role Phone Elsewhere, Pcp Primary Care Provider Unavailable Encounter Details Date Type Department Care Team Description 11/15/2021 Clinical Communication Department of Neurology Preet Landeros, in [facility] nadeen Pavon [address] [facility] [address] [place] [phone] Social History Tobacco Use Types Packs/Day Years [...] or relatives? How often do you attend yazdanism or More than 4 times per year 06/02/2022 voodoo services? Do you belong to any clubs or Yes 06/02/2022 organizations such as yazdanism groups, unions, fraternal or athletic groups, or [...] place to sleep or slept in a fdc (including now)? Education Answer Date Recorded What [...] Appointment Neurology Preet Landeros M.D . [address] [place] [phone] Bria Suh APRN, C.N.P., M.S.N. [address] [place] [phone] 07/25/2022 Appointment Radiology Preet Landeros M.D . [address] [place] [phone] (Wo rk) documented as of this encounter Visit Diagnoses Not on filedocumented in this encounter Additional Health Concerns Assessment Noted Time PHQ-9 Depression Total Score: 12 02/01/2021 9:43 AM CD T documented as of this encounter Care Teams Stripping Shovel Operator Relationship Specialty Start Date End Date Elsewhere, Pcp PCP - General Family Medicine 08/11/19 documented as of this encounter
--- OUTSIDE RECORDS SUMMARY | 2022-06-23 22:40 | XMS_ITS | Encounter Summary ---
:1970 Author Organization [facility] Address [address] [place] [phone] Care Team Providers Name Role Phone Elsewhere, Pcp Primary Care Provider Unavailable Reason for Visit Outpatient (Routine) - Closed Specialty Diagnoses / Procedures Referred By Contact Refer red To Contact Anesthesiology Diagnoses Carpal Tunnel Syndrome Bilateral [facility] [address] [place] [phone] Referral ID Status Reason Start Date Expiration Date Visits Requ ested Visits Authorized [id number] Closed 01/10/2022 01/10/2023 1 1 Encounter Details Date Type Department Care Team Description 03/06/2022 Comprehensive Visit Preoperative Jaciel Solorzano M.D. [address] [place] [address] Preanesthetic Medical Exam (Primary Dx); [facility] Carpal Tunnel Syndrome Bilateral; [place], [place] Diabetes Mellitus Type 2 Hyp erglycemia ([facility]); [address] [facility] Apnea Sleep Obstructive; [place], [place] Hypertension E ssential Primary; [id number] Body Mass Index 50.0 To 59.9 Adult ([facility]); [phone] Depression Supriya r One Episode Moderate ([facility]); Migraine Headac he; Stenosis Spinal Cervical Social History Tobacco Use Types Packs/Day Years [...] or relatives? How often do you attend yarsani or More than 4 times per year 06/02/2022 scientology services? Do you belong to any clubs or Yes 06/02/2022 organizations such as yarsani groups, unions, fraternal or athletic groups, or [...] Sign Reading Time Taken Comments Blood Pressure 118/80 03/06/2022 10:15 AM CDT Pulse 70 03/06/2022 10:15 AM CDT Temperature 36.3 ??C (97.3 ??F) 03/06/2022 10:04 AM CDT Respiratory Rate - - Oxygen Saturation 96% 03/06/2022 10:15 AM CDT Inhaled Oxygen Concentration - - Weight 140 kg (308 lb 10.3 oz) 03/06/2022 10:04 AM CDT Height 166 cm (5' 5.35) 03/06/2022 10:04 AM CDT Body Mass Index 50.81 03/06/2022 10:04 AM CDT documented in this encounter H&P Notes Luba Arias M.D. - 03/06/2022 10:30 AM [...] from 03/06/2022 in Preoperative Evaluation Center in [place], [place] Estimated V02 Peak 31.4 Estimated MET [...] -No pain with neck extension, but would [place] if intubation is necessary Reviewed with patient the Checklist for Surgical Patients [id number]. Written and verbal instructions given on medication management before surgery. RECOMMENDATIONS: Patient medically optimized for planned procedure: Yes Further Recommendations: None Caprini Total Score: Caprini not calculated. VTE prophylaxis per surgery provider Luba Arias M.D. documented in this encounter Plan of Treatment Upcoming Encounters Date Type Specialty Care Team Description 06/26/2022 Appointment Neurology Preet Landeros M.D . [address] [place] [phone] Bria Suh APRN C.N.P., M.S.N. [address] [place] [phone] 07/25/2022 Appointment Radiology Preet Landeros M.D . [address] [place], [place] [phone] (Wo rk) documented as of this encounter Visit Diagnoses Diagnosis Preanesthetic Medical Exam - Primary Carpal Tunnel Syndrome Bilateral Diabetes Mellitus Type 2 Hyperglycemia ( [facility]) Apnea Sleep Obstructive Hypertension Essential Primary Body Mass Index 50.0 To 59.9 Adult (HCC) Depression Major One Episode Moderate (H CC) Migraine Headache Stenosis Spinal Cervical documented in this encounter Additional Health Concerns Infection Onset Date Last Indicated Resolved Time COVID19 Pending 03/06/2022 03/06/2022 03/06/2022 2:44 PM CDT Assessment Noted Time PHQ-9 Depression Total Score: 12 02/01/2021 9:43 AM CD T documented as of this encounter Care Teams Fireman Helper Relationship Specialty Start Date End Date Elsewhere, Pcp PCP - General Family Medicine 08/11/19 documented as of this encounter
--- OUTSIDE RECORDS SUMMARY | 2022-06-23 22:40 | XMS_ITS | Encounter Summary ---
:1970 Author Organization [facility] Address [address] [place] [id number] Care Team Providers Name Role Phone Elsewhere, Pcp Primary Care Provider Unavailable Encounter Details Date Type Department Care Team Description 02/14/2022 Clinical Communication Department of Mathieu Solorzano Neurologic Surgery in [place], [place] [address] [place] [address] [address] [place] [phone] Social History Tobacco Use Types Packs/Day Years [...] More than 4 times per year 06/02/2022 roman catholic services? Do you belong to any clubs [...] place to sleep or slept in a group home (including now)? Education Answer Date Recorded What is the highest level of school Associate degree: anthony pretty, 05/17/2020 you have completed or the highest technical, or vocational p katie degree you have received? Sex Assigned at Date Recorded Male 01/30/2018 9:28 AM CDT documented as of this encounter Miscellaneous Notes Telephone Encounter - Kiran Romero R.N. - 02/15/2022 9:45 AM CDT Contacted and spoke to pt. He would like the date of 06 of April. I inquired about the opposite side in 2 weeks. He would like to deffer at this time. Scheduling. Please reinstate pre-op appointments. Note to put a suppressed visit I nthe morning for consent. Kiran Telephone Encounter - Mone Orta - 02/14/2022 9:02 AM CDT Kiran Noticed today that the pt had CCL'd his Pre op appts ( COVID, STONE & labs ) so I called him and he wants to CCL his February [address] Solorzano and reschedule for later in the Summer. He wouldlike a andrew to discuss different date options. He can be reached back at [phone]. Thanks Mone SULLIVAN: I have deferred the orders to be resched for later. You will just need to CCL /resched the surgery. Please respond to the RST JOAQUIM SCHEDULING Pool Thank You documented in this encounter Plan of Treatment Upcoming Encounters Date Type Specialty Care Team Description 06/26/2022 Appointment Neurology Preet Landeros M.D . [address] [place] [phone] Bria Suh APRN, C.N.P., M.S.N. [address] [place] [phone] 07/25/2022 Appointment Radiology Preet Landeros M.D . [address] [place] [phone] (Wo rk) documented as of this encounter Visit Diagnoses Not on filedocumented in this encounter Additional Health Concerns Assessment Noted Time PHQ-9 Depression Total Score: 12 02/01/2021 9:43 AM CD T documented as of this encounter Care Teams Watch Repairer Relationship Specialty Start Date End Date Elsewhere, Pcp PCP - General Family Medicine 08/11/19 documented as of this encounter
--- OUTSIDE RECORDS SUMMARY | 2022-06-23 22:40 | XMS_ITS | Encounter Summary ---
:1970 Author Organization [facility] Address [address] [place] [address] Care Team Providers Name Role Phone Elsewhere, Pcp Primary Care Provider Unavailable Encounter Details Date Type Department Care Team Description 10/26/2021 Ancillary Procedure Department of Preet Landeros Stenosi s Spinal Radiology in M.D. Cervical [place], [place] [address] [facility] [address] [place] [phone] Social History Tobacco Use Types Packs/Day Years [...] or relatives? How often do you attend uatsdin or More than 4 times per year 06/02/2022 oriental orthodox services? Do you belong to any clubs or Yes 06/02/2022 organizations such as uatsdin groups, unions, fraternal or athletic groups, or [...] Appointment Neurology Preet Landeros M.D . [address] [place] [phone] Bria Suh APRN, C.N.P., M.S.N. [address] [place] [phone] 07/25/2022 Appointment Radiology Preet Landeros M.D . [address] [place] [phone] (Wo rk) documented as of this encounter Procedures Procedure Name Priority Date/Time Associated Comments Diagnosis INTERPRETATION OF RAD - Routine 10/26/2021 8:54 Stenosis Spinal Res ults for OUTSIDE MR SPINE (most inpatients AM TREE WORKER Cervical this pr ocedure and all are in the outpatients) results section. documented in this encounter Results Interpretation of Outside MR Spine (10/26/2021 8:54 AM TREE WORKER) Anatomical Region Laterality Modality Neuroradiology RST BRIELLE Neuroradiology ARZ LOS, N/A Magnetic Resonance Neuroradiology FLA LOS, Spine, Other Specimen (Source) Anatomical Collection Method Collection Time Re ceived Time Location / / Volume Laterality 10/26/2021 11:55 AM TREE WORKER Impressions 10/26/2021 1:22 PM TREE WORKER Advanced spinal canal stenosis at C5-6 with moderate to advanced right neural foraminal stenosis. No cord signal abnormality. Narrative 10/26/2021 1:22 PM TREE WORKER EXAM: ??INTERPRETATION OF OUTSIDE MR SPINE COMPARISON: ??None FINDINGS: ??Outside MRI cervical spine w ithout contrast 10/06/2021 Reversal of cervical lordosis. Vertebral body heights are preserved. ??Mild to moderate multilevel spondylosis as detailed. Mild motion deg radation. C2-C3: Minimal disc bulge without signif icant canal compromise. No neuroforaminal narrowing. C3-C4: Reversal of cervical lordosis wit h superimposed mild disc bulge indenting the ventral thecal sac and the paramedian right greater mitchell n left ventral surface of the cord. Mild spinal canal narrowing. No neural foraminal narrowing . C4-C5: No disc bulge, spinal canal or ne ural foraminal narrowing. C5-C6: Reversal of cervical lordosis wit h disc bulge with advanced spinal canal stenosis and compression of the spinal cord. No cord signal abnormality. Moderate to advanced right and [id number] left neuroforaminal sharath rowing. C6-C7: Mild to moderate disc bulge mildl y narrowing the spinal canal. No cord compression or intrinsic cord signal abnormality. Bilat eral uncovertebral hypertrophy resulting in moderate bilateral neural foraminal narrowing. C7-T1: No disc bulge, spinal canal or ne ural foraminal narrowing. Diffusely somewhat T1 hypointense nonspe cific marrow signal throughout the imaged vertebral bodies, with more normal T1 hyperintensity at th e clivus, without focal osseous lesion. Imaged paravertebral soft tissues are wi thin normal limits. Procedure Note Mathieu Hernandez Jr., M.D., Ph.D. - 10/16 EXAM: INTERPRETATION OF OUTSIDE MR SPINE COMPARISON: None FINDINGS: Outside MRI cervical spine wit hout contrast 10/06/2021 Reversal of cervical lordosis. Vertebral body heights are preserved. Mild to moderate multilevel spondylosis as detailed. Mild motion deg radation. C2-C3: Minimal disc bulge without signif icant canal compromise. No neuroforaminal narrowing. C3-C4: Reversal of cervical lordosis wit h superimposed mild disc bulge indenting the ventral thecal sac and the paramedian right greater mitchell n left ventral surface of the cord. Mild spinal canal narrowing. No neural foraminal narrowing . C4-C5: No disc bulge, spinal canal or ne ural foraminal narrowing. C5-C6: Reversal of cervical lordosis wit h disc bulge with advanced spinal canal stenosis and compression of the spinal cord. No cord signal abnormality. Moderate to advanced right and hpxe-ox-ssfwpgll left neuroforaminal sharath rowing. C6-C7: Mild to moderate disc bulge mildl y narrowing the spinal canal. No cord compression or intrinsic cord signal abnormality. Bilat eral uncovertebral hypertrophy resulting in moderate bilateral neural foraminal narrowing. C7-T1: No disc bulge, spinal canal or ne ural foraminal narrowing. Diffusely somewhat T1 hypointense nonspe cific marrow signal throughout the imaged vertebral bodies, with more normal T1 hyperintensity at th e clivus, without focal osseous lesion. Imaged paravertebral soft tissues are wi thin normal limits. IMPRESSION: Advanced spinal canal stenosis at C5-6 w ith moderate to advanced right neural foraminal stenosis. No cord signal abnormality. Authorizing Provider Result Paul [facility] MRI PROCEDURES documented in this encounter Visit Diagnoses Diagnosis Stenosis Spinal Cervical documented in this encounter Additional Health Concerns Assessment Noted Time PHQ-9 Depression Total Score: 12 02/01/2021 9:43 AM CD T documented as of this encounter Care Teams Strickler Attendant Relationship Specialty Start Date End Date Elsewhere, Pcp PCP - General Family Medicine 08/11/19 documented as of this encounter
--- OUTSIDE RECORDS SUMMARY | 2022-06-23 22:40 | XMS_ITS | Encounter Summary ---
:1970 Author Organization [facility] Address [address] [place] [address] Care Team Providers Name Role Phone Elsewhere, Pcp Primary Care Provider Unavailable Reason for Referral Outpatient (Routine) - Closed Specialty Diagnoses / Procedures Referred By Contact Refer red To Contact Diagnoses Migraine Headache Chronic Preet Landeros M.D. [facility] Procedures Botox for Chronic Migraine GA INJECTION,ONABOTULINUMTOXINA GA CHEMODENERV FACIAL TRIGEM NATALIE Botox (Onabotulinumtoxina) J0585 150 units every 12 weeks [address] [place], [place] [phone] Referral ID Status Reason Start Date Expiration Date Visits Requ ested Visits Authorized [id number] Closed 05/17/2020 05/17/2022 12 12 Reason for Visit Outpatient (Routine) - Closed Specialty Diagnoses / Procedures Referred By Contact Refer red To Contact Diagnoses Migraine Headache Chronic Prete Landeros M.D. [facility] Procedures Botox for Chronic Migraine GA INJECTION,ONABOTULINUMTOXINA GA CHEMODENERV FACIAL TRIGEM NATALIE Botox (Onabotulinumtoxina) J0585 150 units every 12 weeks [address] [place], [place] [phone] Referral ID Status Reason Start Date Expiration Date Visits Requ ested Visits Authorized [id number] Closed 05/17/2020 05/17/2022 12 12 Encounter Details Date Type Department Care Team Description 01/03/2022 Hospital Encounter Department of Preet Landeros M.D. [address] [place] [phone] Migraine Headache Neurology in [place] M.D. [address] [place] [phone] Chronic [place], [place] [address] [place] [phone] Social History Tobacco Use Types Packs/Day Years [...] or relatives? How often do you attend jew or More than 4 times per year 06/02/2022 sabianist services? Do you belong to any clubs or Yes 06/02/2022 organizations such as jew groups, unions, fraternal or athletic groups, or [...] (two) times a day as spray needed. hydrocortisone 1 % Apply topically as 0 2 solution needed. hydrOXYzine (ATARAX) 25 Take 25 mg by mouth 0 mg tablet every 8 (eight) hours as needed. insulin aspart U-100 18 units before each 30 mL 5 07/19 (NovoLOG Flexpen U-100 meal 3 times daily. Insulin) 100 unit/mL injectionIndications: Diabetes Mellitus Type 2 Hyperglycemia (HCC), Inner Tube Cutter Use Of Insulin Active (HCC) insulin glargine [...] by mouth [address] capsule daily. Cellabus VERIO strips Test blood glucose 8 720 [...] mupirocin (BACTROBAN) 2 Apply topically as 0 05/11/202001/08/2022 % ointment needed. nystatin (MYCOSTATIN) 1,000,000 Units [...] documented as of this encounter Procedure Notes Leandro James M.D. - 01/03/2022 10:15 AM CDTAssociated Order(s): Botox for Chronic Migraine Pre-Procedure Diagnose(s): Migraine Headache Chronic Post-Procedure Diagnose(s): Migraine Headache Chronic Botox for Chronic Migraine Date/Time: 01/03/2022 10:13 AM Performed by: Leandro James M.D. Authorized by: Preet Landeros M.D. Care team members present 1. Teresa Craven R.N. 2. Ronaldo Bailon D.O. PROCEDURE DETAILS Pre-procedure pain score: 1/10 Injection of: 100 Units onabotulinumtoxinA 100 unit; 50 Units onabotulinumtoxinA 100 unit 50 Units onabotulinumtoxinA 50 unit Needle gauge: 30 Needle length: 0.5 in Injection site details Global Human Resources Director / Procerus muscle(s): 5 units into the left sterile processing technician muscle, 5 units into the right sterile processing technician muscle and 5 units into the procerus [...] in between rounds). Headache days per month: 4 days Severe headache days per month: 1 [...] fellow participated in the procedure, and the clinical education consultant was present for the entire procedure. documented in this encounter Plan of Treatment Upcoming Encounters Date Type Specialty Care Team Description 06/26/2022 Appointment Neurology Preet Landeros M.D . [address] [place] [phone] Bria Suh APRN, C.N.P., M.S.N. [address] [place] [phone] 07/25/2022 Appointment Radiology Preet Landeros M.D . [address] [place] [phone] (Wo rk) documented as of this encounter Procedures Procedure Name Priority Date/Time Associated Comments Diagnosis GA CHEMODENERV FACIAL Routine 01/03/2022 10:13 Migraine Headac he Results for this TRIGEM NATALIE AM CDT Chronic procedure are i n the results section. documented in this encounter Results GA CHEMODENERV FACIAL TRIGEM NATALIE (01/03/2022 10:13 AM CDT) Narrative MMODAL - 01/03/2022 10:13 AM CDT Leandro James M.D. ? 01/03/2022 10:52 AM Botox for Chronic Migraine Date/Time: 01/03/2022 10:13 AM Performed by: Leandro James M.D. Authorized by: Preet Landeros M.D. Care team members present 1. Teresa Craven R.N. 2. Ronaldo Bailon D.O. PROCEDURE DETAILS ?? Pre-procedure pain score: 10 Injection of: 100 Units onabotulinumtoxi nA 100 unit; 50 Units onabotulinumtoxinA 100 unit 50 Units evelia botulinumtoxinA 50 unit Needle gauge: 30 Needle length: 0.5 in Injection site details Global Human Resources Director / Procerus muscle(s): 5 units into the left sterile processing technician muscle, 5 units into the right sterile processing technician muscle and 5 units into the procerus [...] in between rounds). Headache days per month: 4 days Severe headache days per month: 1 [...] fellow participated in the procedure, and the clinical education consultant was present for the entire procedure. Preet Landeros M.D. NEUROLOGY ORDERABLES Performing Organization Address City/State/ZIP Code Phon e Number MMODAL MMODAL NA documented in this encounter Visit Diagnoses Diagnosis Migraine Headache Chronic documented in this encounter Administered Medications Inactive Administered Medications - up to 3 most recent administrations Medication Order MAR Action Action Date Dose Rate Site onabotulinumtoxinA injection 100 Given 01/03/2022 10:13 AM 100 U nits Units (BOTOX) CDT 100 Units, injection, One-Time Injection, Starting on [place] 01/03/22 at 1013, For 1 dose onabotulinumtoxinA injection 50 Units Given 01/03/2022 10:13 AM CDT 50 Units (BOTOX COSMETIC) 50 Units, injection, One-Time Injection, Starting on [place] 01/03/22 at 1013, For 1 dose onabotulinumtoxinA injection 50 Units Given 01/03/2022 10:13 AM CDT 50 Units (BOTOX) 50 Units, injection, One-Time Injection, Starting on [place] 01/03/22 at 1013, For 1 dose documented in this encounter Additional Health Concerns Assessment Noted Time PHQ-9 Depression Total Score: 12 02/01/2021 9:43 AM CD T documented as of this encounter Care Teams Public Transit Trolley Driver Relationship Specialty Start Date End Date Elsewhere, Pcp PCP - General Family Medicine 08/11/19 documented as of this encounter
--- OUTSIDE RECORDS SUMMARY | 2022-06-23 22:40 | XMS_ITS | Encounter Summary ---
:1970 Author Organization [facility] Address [address] [place] [address] Care Team Providers Name Role Phone Elsewhere, Pcp Primary Care Provider Unavailable Reason for Visit Outpatient (Routine) - Closed Specialty Diagnoses / Procedures Referred By Contact Refer red To Contact Neurological Surgery Diagnoses Carpal Tunnel Syndrome Bilateral Jeanie Barriga M.D. [facility] [address] [place] [phone] Referral ID Status Reason Start Date Expiration Date Visits Requ ested Visits Authorized [id number] Closed 11/26/2021 11/26/2022 1 1 Encounter Details Date Type Department Care Team Description 01/10/2022 Comprehensive Visit Department of Mathieu Solorzano al Tunnel Neurologic Surgery Savanah Johnston Syndrome Bilateral in [place] [address] [address] [place], [place] [address] [place] [phone] [place], [place] [phone] (Work) [phone] Social History Tobacco Use Types Packs/Day Years [...] or relatives? How often do you attend buddhism or More than 4 times per year 06/02/2022 druze services? Do you belong to any clubs or Yes 06/02/2022 organizations such as buddhism groups, unions, fraternal or athletic groups, or [...] Sign Reading Time Taken Comments Blood Pressure - - Pulse - - Temperature 36.2 ??C (97.2 ??F) 01/10/2022 10:16 AM CDT Respiratory Rate - - Oxygen Saturation - - Inhaled Oxygen Concentration - - Weight 142 kg (312 lb 13.3 oz) 01/10/2022 10:16 AM CDT Height 163.9 cm (5' 4.53) 01/10/2022 10:16 AM CDT Body Mass Index 52.82 01/10/2022 10:16 AM CDT documented in this encounter Consult Notes Mathieu Solorzano M.D. - 01/10/2022 10:30 AM CDT SUBJECTIVE REASON FOR CONSULT Bilateral hand paresthesias, left greater than right. HISTORY OF PRESENT ILLNESS This 51-year-old anita is here for further evaluation of his left greater than right hand symptoms, which he has had for several years. He describes paresthesias in the radial-sided digits. His handsgo asleep at night. He wakes them by shaking them. He describes a separate problem with cramping of the hands bilaterally where the hands tend to lock up. They are not triggering per se. He has been evaluated and has been found to have cervical stenosis for which he is under additional care. He has migraines, for which he is receiving Botox successfully. He has a history of diabetes for many years, which is reasonably controlled now. OBJECTIVE PHYSICAL EXAMINATION Neuro: He is a well-nourished man. He has an elevated BMI. He has bilateral Tinel's signs at the wrists, worse on the left than the right. He has a positive Phalen's on both sides but negative reverse Phalen's test. He has moderate weakness of both thenar muscles, worse on the right than the left. Two-point sensation is 7 mm in the radial-sided digits on the left, 6 mm on the right. Pelon is 20/12. Tolbert pinch is 13/10. Jose pinch is 11/7. Tip to tip is 6/5. DIAGNOSTICS EMG shows bilateral carpal tunnel syndrome, severe on the right, moderate on the left. ASSESSMENT / PLAN #1 Bilateral carpal tunnel syndrome He has tried nonoperative measures, including splinting, without benefit. I have spoken to him regarding surgery on the left side since he is more symptomatic and then followed by the right if he notesimprovement on the left and his desirous of the right side being done secondarily. He is interested in proceeding. CONSENT Risks, benefits, alternatives to the left-sided carpal tunnel release were discussed in full. Risks discussed included but not limited to wound infection, healing problems, lack of improvement, persistent symptoms, as well as worsening of the symptoms. Persistent cramping was discussed, as was triggerdigits. Currently, he has no evidence of the triggering on exam. Worsening of his symptoms was also described as well. He was made aware of the interdisciplinary nature of our practice and the role of teaching in our hospital. Advance directives reviewed. Surgical consent form was signed. His site will be marked the morning of surgery. Overlapping surgery was discussed. COVID-19 precautions were reviewed. Planned incision and perioperative care were reviewed. Work- related restrictions were discussed. He wishes to proceed. Will do this in the weeks to come as an outpatient under [facility]. There were no barriers to our conversation. He was seen with my team present. Educational information was given in abundance. Mathieu Solorzano M.D. CT CT Job ID: [id number] documented in this encounter Plan of Treatment Upcoming Encounters Date Type Specialty Care Team Description 06/26/2022 Appointment Neurology Preet Landeros M.D . [address] [place] [phone] Bria Suh, BRET, C.N.P., M.S.N. [address] [place] [phone] 07/25/2022 Appointment Radiology Preet Landeros M.D . [address] [place] [phone] (Wo rk) documented as of this encounter Visit Diagnoses Diagnosis Carpal Tunnel Syndrome Bilateral documented in this encounter Additional Health Concerns Assessment Noted Time PHQ-9 Depression Total Score: 12 02/01/2021 9:43 AM CD T documented as of this encounter Care Teams Infant Toddler Lead Teacher Relationship Specialty Start Date End Date Elsewhere, Pcp PCP - General Family Medicine 08/11/19 documented as of this encounter
--- OUTSIDE RECORDS SUMMARY | 2022-06-23 22:40 | XMS_ITS | Encounter Summary ---
:1970 Author Organization [facility] Address [address] [place] [address] Care Team Providers Name Role Phone Elsewhere, Pcp Primary Care Provider Unavailable Reason for Referral Outpatient (Routine) - Closed Specialty Diagnoses / Procedures Referred By Contact Refer red To Contact Diagnoses Stenosis Spinal Cervical Jeanie Bello M.D. [facility] Procedures EMG [address] [place] [phone] Referral ID Status Reason Start Date Expiration Date Visits Requ ested Visits Authorized [id number] Closed 11/22/2021 11/22/2022 1 1 CTOR SECURITY MANAGEMENT Reason for Visit Outpatient (Routine) - Closed Specialty Diagnoses / Procedures Referred By Contact Refer red To Contact Diagnoses Stenosis Spinal Cervical Jeanie Bello M.D. [facility] Procedures EMG [address] [place] [phone] Referral ID Status Reason Start Date Expiration Date Visits Requ ested Visits Authorized [id number] Closed 11/22/2021 11/22/2022 1 1 Encounter Details Date Type Department Care Team Description 11/22/2021 Hospital Encounter Department of Jeanie Bello, Stenosis Spinal Neurology in [facility] [place], [place] [address] [place] [phone] Social History Tobacco Use Types Packs/Day Years [...] or relatives? How often do you attend pentecostal or More than 4 times per year 06/02/2022 baptist services? Do you belong to any clubs or Yes 06/02/2022 organizations such as pentecostal groups, unions, fraternal or athletic groups, or [...] place to sleep or slept in a [place] [facility] (including now)? Education Answer Date Recorded What [...] injectionIndications: Diabetes Mellitus Type 2 Hyperglycemia (HCC), Manager Of Change Use Of Insulin Active (HCC) insulin glargine [...] by mouth [address] capsule daily. [employer] VERIO strips Test blood glucose 8 720 [...] 20 Take 60 mg by mouth 0 04/01/202101/08/2022 mg capsule daily. indomethacin (INDOCIN) Take 50 [...] Neurology Preet Landeros M.D . [address] [place] [phone] Bria Suh APRN, C.N.P., M.S.N. [address] [place] [phone] 07/25/2022 Appointment Radiology Preet Landeros M.D . [address] [place], [place] [phone] (Wo rk) documented as of this encounter Procedures Procedure Name Priority Date/Time Associated Diagnosis Comme nts EMG Routine 11/22/2021 1:39 PM Stenosis Spinal Result s for this DIRECTOR SECURITY MANAGEMENT Cervical procedure are i n the results section . documented in this encounter Results EMG (11/22/2021 1:39 PM DIRECTOR SECURITY MANAGEMENT) Specimen (Source) Anatomical Collection Method Collection Time Re ceived Time Location / / Volume Laterality 11/22/2021 1:45 PM DIRECTOR SECURITY MANAGEMENT Narrative EMG - 11/22/2021 4:07 PM DIRECTOR SECURITY MANAGEMENT 22-Nov-2021 ? Electromyography ? Final Report Study Number: 1 EMG [employer] Consultant: Garland Hanks 127 or [phone] Referred by: Jeanie BELLO (127 or [phone]) Referred for: bilateral hand numbness; d ropping things Referral Code: ?037 RX: 211 ??315 SUMMARY: Prior to starting the procedure , the patient's identity was verified, pertinent available records were reviewed, the nature of the procedure was explained, the appropriate sites of the exam were confirmed directly with the taylor tiesamantha, and a pre-procedure pause was performed for [...] findings of bilateral median neuropathies at the [facility] st (carpal tunnel syndrome) which is moderate [...] the interpretation. Nany Yates/Star Hanks (127 or [phone]) /[facility] NERVE CONDUCTIONS ??Record Rep ?? Normal [...] has been electron ically signed: Garland Hanks, DO, PhD at 11/22/2021 4:05:55 PM DIRECTOR SECURITY MANAGEMENT Procedure Note Dereck Hanks D.O., Ph.D. - 022 22-Nov-2021 Electromyography Final Repor t Study Number: 1 EMG [employer] [facility] Consultant: Garland Hanks 127 or [phone] Referred by: Jeanie BELLO (127 or [phone]) Referred for: bilateral hand numbness; d [...] findings of bilateral median neuropathies at the i st (carpal tunnel syndrome) which is moderate [...] the interpretation. Nany Yates/Star Hanks (127 or [phone]) /[facility] NERVE CONDUCTIONS Record Rep Normal Normal [...] Hanks DO, PhD at 11/22/2021 4:05:55 PM DIRECTOR SECURITY MANAGEMENT Jeanie Bello M.D. NEUROLOGY ORDERABLES Performing Organization Address City/State/ZIP Code Phon e Number [facility] documented in this encounter Visit Diagnoses Diagnosis Stenosis Spinal Cervical documented in this encounter Additional Health Concerns Assessment Noted Time PHQ-9 Depression Total Score: 12 02/01/2021 9:43 AM CD T documented as of this encounter Care Teams Air Cargo Ground Crew Supervisor Relationship Specialty Start Date End Date Elsewhere, Pcp PCP - General Family Medicine 08/11/19 documented as of this encounter
--- OUTSIDE RECORDS SUMMARY | 2022-06-23 22:40 | XMS_ITS | Encounter Summary ---
:1970 Author Organization [facility] Address [address] [place] [address] Care Team Providers Name Role Phone Elsewhere, Pcp Primary Care Provider Unavailable Reason for Visit Reason Comments Pre-visit Intake Encounter Details Date Type Department Care Team Description 01/08/2022 Clinical Communication Visit Review in Pr e-visit Intake [place], [place] [address] [place], [place] [phone] Social History Tobacco Use Types Packs/Day Years [...] or relatives? How often do you attend congregational or More than 4 times per year 06/02/2022 congregational services? Do you belong to any clubs or Yes 06/02/2022 organizations such as congregational groups, unions, fraternal or athletic groups, or [...] Appointment Neurology Preet Landeros M.D . [address] [place] [phone] Bria Suh, BRET, C.N.P., M.S.N. [address] [place] [phone] 07/25/2022 Appointment Radiology Preet Landeros M.D . [address] [place] [phone] (Wo rk) documented as of this encounter Visit Diagnoses Not on filedocumented in this encounter Additional Health Concerns Assessment Noted Time PHQ-9 Depression Total Score: 12 02/01/2021 9:43 AM CD T documented as of this encounter Care Teams Fishery Biologist Relationship Specialty Start Date End Date Elsewhere, Pcp PCP - General Family Medicine 08/11/19 documented as of this encounter
--- OUTSIDE RECORDS SUMMARY | 2022-06-23 22:41 | XMS_ITS | Encounter Summary ---
:1970 Author Organization [facility] Address [address] [place] [address] Care Team Providers Name Role Phone Elsewhere, Pcp Primary Care Provider Unavailable Encounter Details Date Type Department Care Team Description 07/05/2020 Diagnostic Division of Pulmonary Cesia Landeros M.D. Snoring; Medicine in [place], [facility] [place] [address] Apnea Sleep Obstructive [place], [place] [address] [facility] [phone] [place], [place] [phone] (Work) [phone] Social History Tobacco Use Types Packs/Day Years Used Date Smoking Tobacco: Some Days Cigars Smokeless Tobacco: Never Comments: An occasional cigar Alcohol Use Standard Drinks/Week Comments Yes 0 [...] or relatives? How often do you attend hindu or More than 4 times per year 06/02/2022 yazidism services? Do you belong to any clubs or Yes 06/02/2022 organizations such as hindu groups, unions, fraternal or athletic groups, or [...] Neurology Preet Landeros M.D . [address] [place] [phone] Bria Suh APRN, C.N.P., M.S.N. [address] [place] [phone] 07/25/2022 Appointment Radiology Preet Landeros M.D . [address] [place] [phone] (Wo rk) documented as of this encounter Procedures Procedure Name Priority Date/Time Associated Diagnosis Comme nts PUL HOME OVERNIGHT Routine 07/05/2020 Snoring Results for this OXIMETRY Apnea Sleep Obstructive proc edure are in the results section . documented in this encounter Results Home Overnight Oximetry (07/05/2020) Specimen (Source) Anatomical Location Collection Method / Collectio n Time Received Time / Laterality Volume 07/05/2020 Narrative [facility] - 07/07/2020 6:53 AM CD T This result has an attachment that is no t available. See PDF report for results Procedure Note Nathan Vargas M.D. - 07/07/2020For matting of this note might be different from the original. See PDF report for results Preet Landeros M.D. PFT ORDERABLES Performing Organization Address City/State/ZIP Code Phon e Number [facility] documented in this encounter Visit Diagnoses Diagnosis Snoring Apnea Sleep Obstructive documented in this encounter Additional Health Concerns Assessment Noted Time PHQ-9 Depression Total Score: 16 05/17/2020 1:26 PM CD T documented as of this encounter Care Teams Manager Corporate Responsibility Relationship Specialty Start Date End Date Elsewhere, Pcp PCP - General Family Medicine 08/11/19 documented as of this encounter
--- OUTSIDE RECORDS SUMMARY | 2022-06-23 22:41 | XMS_ITS | Encounter Summary ---
:1970 Author Organization [facility] Address [address] [place] [address] Care Team Providers Name Role Phone Elsewhere, Pcp Primary Care Provider Unavailable Encounter Details Date Type Department Care Team Description 01/29/2021 Clinical Communication Department of Neurology Preet Landeros, in [facility] nadeen Pavon [address] [place] [address] [address] [place] [phone] Social History Tobacco Use Types Packs/Day Years [...] or relatives? How often do you attend roman catholic or More than 4 times per year 06/02/2022 episcopalian services? Do you belong to any clubs or Yes 06/02/2022 organizations such as roman catholic groups, unions, fraternal or athletic groups, [...] Neurology Preet Landeros M.D . [address] [place] [phone] Bria Suh, BRET, C.N.P., M.S.N. [address] [place] [phone] 07/25/2022 Appointment Radiology Preet Landeros M.D . [address] [place] [phone] (Wo rk) documented as of this encounter Visit Diagnoses Not on filedocumented in this encounter Additional Health Concerns Assessment Noted Time PHQ-9 Depression Total Score: 6 11/09/2020 7:38 AM CLINICAL INFORMATICS DIRECTOR documented as of this encounter Care Teams Pill Coater Relationship Specialty Start Date End Date Elsewhere, Pcp PCP - General Family Medicine 08/11/19 documented as of this encounter
--- OUTSIDE RECORDS SUMMARY | 2022-06-23 22:41 | XMS_ITS | Encounter Summary ---
:1970 Author Organization [facility] Address [address] [place] [address] Care Team Providers Name Role Phone Elsewhere, Pcp Primary Care Provider Unavailable Reason for Visit Reason Comments Pre-visit Intake Encounter Details Date Type Department Care Team Description 01/31/2021 Clinical Communication Department of Preet Landeros, Pre- visit Intake Neurology in [place], [place] [address] [facility] [address] [place] [phone] Social History Tobacco Use Types Packs/Day Years [...] or relatives? How often do you attend congregation or More than 4 times per year 06/02/2022 sikhism services? Do you belong to any clubs or Yes 06/02/2022 organizations such as congregation groups, unions, fraternal or athletic groups, or [...] Appointment Neurology Preet Landeros M.D . [address] [place] [phone] Bria Suh APRN, C.N.P., M.S.N. [address] [place] [phone] 07/25/2022 Appointment Radiology Preet Landeros M.D . [address] [place] [phone] (Wo rk) documented as of this encounter Visit Diagnoses Not on filedocumented in this encounter Additional Health Concerns Assessment Noted Time PHQ-9 Depression Total Score: 13 01/31/2021 1:51 PM CD T documented as of this encounter Care Teams Cutter Plastics Rolls Relationship Specialty Start Date End Date Elsewhere, Pcp PCP - General Family Medicine 08/11/19 documented as of this encounter
--- OUTSIDE RECORDS SUMMARY | 2022-06-23 22:41 | XMS_ITS | Encounter Summary ---
:1970 Author Organization [facility] Address [address] [place] [address] Care Team Providers Name Role Phone Elsewhere, Pcp Primary Care Provider Unavailable Reason for Referral Outpatient (Routine) - Closed Specialty Diagnoses / Procedures Referred By Contact Refer red To Contact Diagnoses Migraine Headache Chronic Preet Landeros M.D. [facility] Procedures Botox for Chronic Migraine DC INJECTION,ONABOTULINUMTOXINA DC CHEMODENERV FACIAL TRIGEM NATALIE Botox (Onabotulinumtoxina) J0585 150 units every 12 weeks [address] [place], [place] [phone] Referral ID Status Reason Start Date Expiration Date Visits Requ ested Visits Authorized [id number] Closed 05/17/2020 05/17/2022 12 12 Reason for Visit Outpatient (Routine) - Closed Specialty Diagnoses / Procedures Referred By Contact Refer red To Contact Diagnoses Migraine Headache Chronic Preet Landeros M.D. [facility] Procedures Botox for Chronic Migraine DC INJECTION,ONABOTULINUMTOXINA DC CHEMODENERV FACIAL TRIGEM NATALIE Botox (Onabotulinumtoxina) J0585 150 units every 12 weeks [address] [place], [place] [phone] Referral ID Status Reason Start Date Expiration Date Visits Requ ested Visits Authorized [id number] Closed 05/17/2020 05/17/2022 12 12 Encounter Details Date Type Department Care Team Description 04/25/2021 Hospital Encounter Department of Preet Landeros, Migraine Headache Neurology in M.D. Chronic [place], [place] [address] [facility] [address] [place] [phone] Social History Tobacco Use Types Packs/Day Years [...] or relatives? How often do you attend orthodox or More than 4 times per year 06/02/2022 anabaptist services? Do you belong to any clubs or Yes 06/02/2022 organizations such as orthodox groups, unions, fraternal or athletic groups, or [...] or the highest technical, or vocational [facility] degree you have received? 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 [employer] VERIO strips Test blood glucose 8 720 [...] documented as of this encounter Procedure Notes Preet Landeros M.D. - 04/25/2021 3:00 PM CDTAssociated Order(s): Botox for Chronic Migraine Pre-Procedure Diagnose(s): Migraine Headache Chronic Post-Procedure Diagnose(s): Migraine Headache Chronic Botox for Chronic Migraine Date/Time: 04/25/2021 2:56 PM Performed by: Preet Landeros M.D. Authorized by: Preet Landeros M.D. Care team members present 1. Elsa Lane L.P.N. 2. Ilya Hoang M.D., M.S. PROCEDURE DETAILS Pre-procedure pain score: 2/10 Injection of: 100 Units onabotulinumtoxinA 100 unit 50 Units onabotulinumtoxinA 50 unit Needle gauge: 30 Needle length: 0.5 in Injection site details Granite Cutter / Procerus muscle(s): 5 units into the left tax services professional muscle, 5 units into the right tax services professional muscle and 5 units into the procerus [...] in between rounds). Headache days per month: 10 days Severe headache days per month: 3 days [...] completed successfully: yes Complications: no apparent complications documented in this encounter Plan of Treatment Upcoming Encounters Date Type Specialty Care Team Description 06/26/2022 Appointment Neurology Preet Landeros M.D . [address] [place] [phone] Bria Suh APRN, C.N.P., M.S.N. [address] [place] [phone] 07/25/2022 Appointment Radiology Preet Landeros M.D . [address] [place] [phone] (Wo rk) documented as of this encounter Procedures Procedure Name Priority Date/Time Associated Comments Diagnosis DC CHEMODENERV FACIAL Routine 04/25/2021 2:56 PM Migraine Head ache Results for this TRIGEM NATALIE CDT Chronic procedure are i n the results section. documented in this encounter Results DC CHEMODENERV FACIAL TRIGEM NATALIE (04/25/2021 2:56 PM CDT) Narrative [facility] - 04/25/2021 2:56 PM CDT Preet Landeros M.D. ? 04/25/2021 ??3:21 PM Botox for Chronic Migraine Date/Time: 04/25/2021 2:56 PM Performed by: Preet Landeros M.D. Authorized by: Preet Landeros M.D. Care team members present 1. Elsa Lane L.P.N. 2. Ilya Hoang M.D., M.S. PROCEDURE DETAILS ?? Pre-procedure pain score: 2/10 Injection of: 100 Units onabotulinumtoxi nA 100 unit 50 Units onabotulinumtoxinA 50 unit Needle gauge: 30 Needle length: 0.5 in Injection site details Granite Cutter / Procerus muscle(s): 5 units into the left tax services professional muscle, 5 units into the right tax services professional muscle and 5 units into the procerus [...] in between rounds). Headache days per month: 10 days Severe headache days per month: 3 days [...] completed successfully: yes Complications: no apparent complications Preet Landeros M.D. NEUROLOGY ORDERABLES Performing Organization Address City/State/ZIP Code Phon e Number MMODAL MMODAL NA documented in this encounter Visit Diagnoses Diagnosis Migraine Headache Chronic documented in this encounter Administered Medications Inactive Administered Medications - up to 3 most recent administrations Medication Order MAR Action Action Date Dose Rate Site onabotulinumtoxinA injection 100 Given 04/25/2021 2:56 PM 100 Un its Units (BOTOX) CDT 100 Units, injection, One-Time Injection, Starting on Fri04/25/21 at 1456, For 1 dose onabotulinumtoxinA injection 50 Units Given 04/25/2021 2:56 PM C DT 50 Units (BOTOX COSMETIC) 50 Units, injection, One-Time Injection, Starting on Fri04/25/21 at 1456, For 1 dose documented in this encounter Additional Health Concerns Assessment Noted Time PHQ-9 Depression Total Score: 12 02/01/2021 9:43 AM CD T documented as of this encounter Care Teams Campus Recruiting Internship Relationship Specialty Start Date End Date Elsewhere, Pcp PCP - General Family Medicine 08/11/19 documented as of this encounter
--- OUTSIDE RECORDS SUMMARY | 2022-06-23 22:41 | XMS_ITS | Encounter Summary ---
:1970 Author Organization [facility] Address [address] [place] [address] Care Team Providers Name Role Phone Elsewhere, Pcp Primary Care Provider Unavailable Encounter Details Date Type Department Care Team Description 07/05/2020 Hospital Encounter Department of Preet Landeros Cognitiv e Disorder Laboratory Medicine [facility] and Pathology [place] [address] [place] [address], in [place], [place] [phone] [place] [address] [place], [place] (Work) [phone] Social History Tobacco Use Types Packs/Day Years [...] or relatives? How often do you attend christian or More than 4 times per year 06/02/2022 sabianist services? Do you belong to any clubs or Yes 06/02/2022 organizations such as christian groups, unions, fraternal or athletic groups, or [...] total) by mouth at Hyperlipidemia Mixed bedtime. Dexcom G6 Sensor device 0 05/18/2020 Dexcom G6 Transmitter 0 03/27/2020 device DME CPAPIndications: DME Order 1 Device 0 07/05/2020 Snoring, Apnea Sleep Obstructive insulin aspart U-100 18 units before each 30 mL 5 07/19 (NovoLOG Flexpen U-100 meal 3 times daily. Insulin) 100 unit/mL injectionIndications: Diabetes Mellitus Type 2 Hyperglycemia (HCC), Retirement Use Of Insulin Active (HCC) insulin glargine (Lantus Inject 20 Units under 15 mL 11 06/22/2020 Solostar U-100 Insulin) the skin at bedtime. 100 unit/mL (3 mL) injection ipratropium (ATROVENT) Administer 2 sprays 0 0.03 % nasal spray into each nostril 2 (two) times a day. ketoconazole (NIZORAL) 2 Apply 1 application 0 [...] 2 (two) times a day as needed. PiAuto VERIO strips Test blood glucose 8 720 strip 3 05/16 times per day valsartan (DIOVAN) 80 mg TAKE 1 TABLET (80 MG 90 tablet 3 0 10/20/2018 tabletIndications: TOTAL) BY MOUTH Hypertension Essential DAILY. Primary empagliflozin Take 1 tablet (10 mg 90 tablet 3 06/22/2020 0 09/20/2020 (JARDIANCE) 10 mg tablet total) by mouth every morning before breakfast. ferrous sulfate 324 mg Take 65 mg of iron by 0 09/20/2020 (65 mg iron) DR tablet mouth daily. glucagon (Baqsimi) 3 Administer 1 2 each 3 06/28/2020 mg/actuation application into spray,non-aerosol nostril(s) as needed (hypoglycemia). metFORMIN (FORTAMET) 500 Take 1 tablet (500 mg 60 tablet 11 06/22/2020 01/30/2021 mg 24 hr tablet total) by mouth 2 (two) times a day with meals. multivitamin capsule daily. 0 03/09/201001/13 ofloxacin (OCUFLOX) 0.3 Administer 1 drop 0 10/0901/08/2022 % ophthalmic solution into each ear as needed. omeprazole Take 20 mg by mouth 0 08/03 (for_PriLOSEC) 20 mg every morning before capsule breakfast. pen needle, diabetic 4 Injection daily. 100 each 11 018 01/30/2021 (SURE-FINE PEN NEEDLES) 31 gauge x 5/16 needleIndications: Diabetes Mellitus Type 2 Hyperglycemia (HCC), Retirement Use Of Insulin Active (HCC) propranoloL (INDERAL) 60 Take 40 mg by mouth 2 0 09/20/2020 mg tablet (two) times a day. sennosides-docusate Twice A Day 0 06/23/2020 04/2 02/2022 sodium (SENOKOT-S) 8.6-50 mg per tablet sertraline HCl Take 200 mg by mouth 0 01/31/2021 (SERTRALINE ORAL) daily. Stimulant Laxative Plus TK 2 TS PO BID 0 06/23/20 20 01/31/2021 8.6-50 mg per tablet SUMAtriptan (IMITREX) 50 Take 50 mg by mouth 0 06/03/2022 mg tablet as needed. May repeat dose once in 2 hours if migraine unresolved. Do not exceed 200 mg in 24 hours. documented as of this encounter Miscellaneous Notes Result Encounter Note - Preet Landeros M.D. - 07/14/2020 11:25 AM CDT Reviewed. CBC showed leukocytosis. He appears to have similar findings I year and 2 years ago. Letter sent to the patient asking to review this with his primary care provider. documented in this encounter Plan of Treatment Upcoming Encounters Date Type Specialty Care Team Description 06/26/2022 Appointment Neurology Preet Landeros M.D . [address] [place] [phone] Bria Suh APRN, C.N.P., M.S.N. [address] [place] [phone] 07/25/2022 Appointment Radiology Preet Landeros M.D . [address] [place] [phone] (Wo rk) documented as of this encounter Procedures Procedure Name Priority Date/Time Associated Comments Diagnosis THYROID FUNCTION Routine 07/05/2020 9:27 AM Cognitive Disorder Results for this CASCADE, S CDT procedure are i n the results section. PERNICIOUS ANEMIA Routine 07/05/2020 9:27 AM Cognitive Disorde r Results for this CASCADE, S CDT procedure are i n the results section. CBC WITH DIFFERENTIAL, Routine 07/05/2020 9:27 AM Cognitive Di sorder Results for this B CDT procedure are i n the results section. COMPREHENSIVE Routine 07/05/2020 9:27 AM Cognitive Disorder Re sults for this METABOLIC PANEL, S/P CDT procedu re are in the results section. documented in this encounter Results Thyroid Function Anna (07/05/2020 9:27 AM CDT) athologist Signature TSH, Sensitive 0.6 0.3 - 4.2 07/05/2020 DTL mIU/L 10:32 AM CDT Specimen Anatomical Collection Method Collection Time Receive d Time (Source) Location / / Volume Laterality Blood (Blood, 07/05/2020 9:27 AM 07/05/20 Venous) CDT 10:07 AM CDT Authorizing Provider Result Paul Landeros M.D. LAB BLOOD ADD-ON Performing Organization Address City/[facility] Phon e Number [facility] - [address] [place], [place] [address] [place] [address] [facility] [address] Pernicious Anemia Anna (07/05/2020 9:27 AM CDT) athologist Signature Vitamin B12 536 180 - 914 07/05/2020 [facility] Assay, S ng/L 3:56 PM CDT Specimen Anatomical Collection Method Collection Time Receive d Time (Source) Location / / Volume Laterality Blood (Blood, 07/05/2020 9:27 AM 07/05/20 2:10 Venous) CDT PM CDT Authorizing Provider Result Paul Landeros M.D. LAB BLOOD NON ADD-ON Performing Organization Address City/[facility] Phon e Number [facility] [address] [place], [place] [address] [facility] [place] [address] Laboratory Medicine and Pathology [address] [place] Comprehensive Metabolic Panel (07/05/2020 9:27 AM CDT) athologist Signature Potassium, S 4.2 3.6 - 5.2 07/05/2020 DTL mmol/L 10:27 AM CDT Sodium, S 144 135 - 145 07/05/2020 DTL mmol/L 10:27 AM CDT Chloride, S 103 98 - 107 07/05/2020 DTL mmol/L 10:27 AM CDT Bicarbonate, S 29 22 - 29 07/05/2020 DTL mmol/L 10:27 AM CDT Anion Gap 12 7 - 15 07/05/2020 DTL 10:27 AM CDT BUN (Blood Urea 16 8 - 24 07/05/2020 DTL Nitrogen), S mg/dL 10:27 AM CDT Creatinine 1.04 0.74 - 07/05/2020 DTL 1.35 mg/dL 10:27 AM CDT eGFR-Non 83 >=60 07/05/2020 DTL Black/ mL/min/BSA 10: AM CDT [place]er Comment: ----ADDITIONAL INFORMATION---- Estimated GFR calculated using the 2009 CKD_EPI creatinine equation. eGFR-Black/ >90 >=60 mL/min/BSA 2019 10:27 AM CDT DTL Comment: ----ADDITIONAL INFORMATION---- Estimated GFR calculated using the 2009 CKD_EPI creatinine equation. Calcium, Total, S 9.4 8.6 - 10.0 mg/dL 07/05/2020 10:2 7 AM CDT DTL Glucose, S 130 70 - 140 mg/dL 07/05/2020 10:27 AM CDT DTL Protein, Total, S 6.9 6.3 - 7.9 g/dL 07/05/2020 10:27 AM CDT DTL Albumin, S 4.0 3.5 - 5.0 g/dL 07/05/2020 10:27 AM CDT DTL Aspartate Aminotransferase 17 8 - 48 U/L 07/05/2020 1 0:27 AM CDT DTL (AST), S Alkaline Phosphatase, S 96 40 - 129 U/L 07/05/2020 10 :27 AM CDT DTL Alanine Aminotransferase (ALT), 17 7 - 55 U/L 020 10:27 AM CDT DTL S Bilirubin, Total, S 0.4 <=1.2 mg/dL 07/05/2020 10:27 A M CDT DTL Specimen Anatomical Collection Method Collection Time Receive d Time (Source) Location / / Volume Laterality Blood (Blood, 07/05/2020 9:27 AM 10/21/20 20 Venous) CDT 10:07 AM CDT Preet Landeros M.D. LAB BLOOD ADD-ON Performing Organization Address City/State/ZIP Code Phon e Number [facility] - [address] [place] [phone] [facility] [address] [facility] [address] [facility] (ABNORMAL) CBC with Differential, Blood (07/05/2020 9:27 AM CDT) [facility] Method Time Signature Hemoglobin 14.3 13.2 - 07/05/2020 DTL 16.6 g/dL 10:17 AM CDT Hematocrit 44.8 38.3 - 07/05/2020 DTL 48.6 % 10:17 AM CDT Erythrocytes 5.27 4.35 - 07/05/2020 DTL 5.65 10:17 AM CDT x10(12)/L MCV 85.0 78.2 - 07/05/2020 DTL 97.9 fL 10:17 AM CDT RBC Distrib Width 14.6 (H) 11.8 - 07/05/2020 DTL 14.5 % 10:17 AM CDT Platelet Count 283 135 - 317 07/05/2020 DTL x10(9)/L 10:17 AM CDT Leukocytes 11.5 (H) 3.4 - 9.6 07/05/2020 DTL x10(9)/L 10:17 AM CDT Neutrophils 8.98 (H) 1.56 - 07/05/2020 DTL 6.45 10:17 AM CDT x10(9)/L Lymphocytes 1.51 0.95 - 07/05/2020 DTL 3.07 10:17 AM CDT x10(9)/L Monocytes 0.75 0.26 - 07/05/2020 DTL 0.81 10:17 AM CDT x10(9)/L Eosinophils 0.21 0.03 - 07/05/2020 DTL 0.48 10:17 AM CDT x10(9)/L Basophils 0.06 0.01 - 07/05/2020 DTL 0.08 10:17 AM CDT x10(9)/L Specimen Anatomical Collection Method Collection Time Receive d Time (Source) Location / / Volume Laterality Blood (Blood, 07/05/2020 9:27 AM 07/05/20 20 9:58 Venous) CDT AM CDT Preet Landeros M.D. LAB BLOOD ADD-ON Performing Organization Address City/State/ZIP Code Phon e Number [facility] - [address] [place], [place] [address] [facility] [address] [facility] [address] documented in this encounter Visit Diagnoses Diagnosis Cognitive Disorder documented in this encounter Additional Health Concerns Assessment Noted Time PHQ-9 Depression Total Score: 16 05/17/2020 1:26 PM CD T documented as of this encounter Care Teams Preschool Assistant Relationship Specialty Start Date End Date Elsewhere, Pcp PCP - General Family Medicine 08/11/19 documented as of this encounter
--- OUTSIDE RECORDS SUMMARY | 2022-06-23 22:41 | XMS_ITS | Encounter Summary ---
:1970 Author Organization [facility] Address [address] [place] [address] Care Team Providers Name Role Phone Elsewhere, Pcp Primary Care Provider Unavailable Reason for Referral Outpatient (Routine) - Closed Specialty Diagnoses / Procedures Referred By Contact Refer red To Contact Neurology Preet Landeros M.D. [facility] [address] [place] [phone] Referral ID Status Reason Start Date Expiration Date Visits Requ ested Visits Authorized [id number] Closed 01/31/2021 01/31/2022 1 1 Scheduling Instructions 60 min Reason for Visit Outpatient (Routine) - Closed Specialty Diagnoses / Procedures Referred By Contact Refer red To Contact Neurology Preet Landeros M.D. [facility] [address] [place], [place] [phone] Referral ID Status Reason Start Date Expiration Date Visits Requ ested Visits Authorized [id number] Closed 11/09/2020 11/09/2021 1 1 Encounter Details Date Type Department Care Team Description 01/31/2021 Office Visit Department of Preet Landeros, Pain Hand Nitin brown (Primary Dx); Neurology in M.DBon Pain Hand Left [place], [place] [address] [facility] [address] [place] [phone] Social History Tobacco Use Types Packs/Day Years [...] or relatives? How often do you attend confucianism or More than 4 times per year 06/02/2022 faith services? Do you belong to any clubs or Yes 06/02/2022 organizations such as confucianism groups, unions, fraternal or athletic groups, or [...] documented as of this encounter Progress Notes Preet Ladneros M.D. - 01/31/2021 2:30 PM CDT SUBJECTIVE Chief Complaint: Follow up on headaches. HPI:Paul Murphy returns today for follow-up. Last saw him November 09, 2020. Since then he has continued Botox injections. On Botox injections he continues to have a daily or near daily headache but overall headaches are substantially improved. He reports a greater than 50% improvement in pain intensity overall and his states that he does not even complain about headaches anymore. He hasa pending psychiatry evaluation tomorrow for depression and anxiety. He is continuing to follow withmy colleagues in the Sleep Clinic for his severe obstructive sleep apnea. He uses naproxen and sumatriptan as needed without overusing them for headache management and they help enough for him. He today reports that in the last 6-8 months he has experienced very focal pain in his hands, right more than left. The pain is very focal in both hands in the same locations and it is in the palm of the hand in between the 4th and 5th digits at the base of those digits. Typically the pain will be very focal and restricted to that area but may lead him to drop things. There is no associated weakness or numbness. He believes he drops things because of the sudden-onset pain. OBJECTIVE EXAM: Focused neurologic exam limited to upper extremities showed normal strength, superficial pain sensation and deep tendon reflexes. ASSESSMENT / PLAN #1 Chronic migraine with aura (visual) For now he will continue Botox injections for migraine prophylaxis. He will continue naproxen and sumatriptan as needed with previously discussed limitations to prevent medication overuse headache. At present he is not interested in escalating on migraine prophylaxis. I will see him back in 6 months per his preference. #2 Severe obstructive sleep apnea He will continue to follow with my colleagues in the Sleep Clinic. #3 Cognitive difficulties #4 Depression and anxiety His neuropsychological testing was suggestive of significant depression anxiety that will be evaluated by Psychiatry tomorrow. Hopefully better management of depression and anxiety can also translate into better chronic migraine control. #5 Bilateral hand pain His symptoms are not very suggestive of carpal tunnel syndrome although this could be a possibility and for this I have recommended an EMG. I mostly interested in getting hand x-rays and an opinion in the hand Clinic. He accepted the recommendations. PATIENT EDUCATION Ready to learn, no apparent learning barriers were identified; learning preferences include listening. Explained diagnosis and treatment plan; patient expressed understanding of the content. documented in this encounter Plan of Treatment Upcoming Encounters Date Type Specialty Care Team Description 06/26/2022 Appointment Neurology Preet Landeros M.D . [address] [place] [phone] Bria Suh APRN, C.N.P., M.S.N. [address] [place] [phone] 07/25/2022 Appointment Radiology Preet Landeros M.D . [address] [place] [phone] (Wo rk) Scheduled Referrals Name Type Priority Associated Diagnoses [facility] Outpatient Referral Routine Expe cted: visit (clinic) 08/03/2021 (Approximate), Expires: 02/01/2024 documented as of this encounter Results DX Hand Bilateral 3+ Views (01/31/2021 4:38 PM CDT) Anatomical Region Laterality Modality Upper Extremity, Hand, Musculoskeletal RST LOS, Bilateral Digital Radiography Musculoskeletal ARZ LOS, Muskuloskeletal FLA LOS Specimen (Source) Anatomical Collection Method Collection Time Re ceived Time Location / / Volume Laterality 01/31/2021 4:43 PM CDT Impressions 01/31/2021 4:45 PM CDT Bilateral scapholunate widening. Minimal scattered degenerative changes. Suggestion of mild hyperextensi on at several PIP joints on the oblique views. Narrative 01/31/2021 4:45 PM CDT EXAM: ??DX HAND BILATERAL 3+ VIEWS Procedure Note Zay Batista M.D. - 01/31/2021Format ting of this note might be different from the original. EXAM: DX HAND BILATERAL 3+ VIEWS IMPRESSION: Bilateral scapholunate widening. Minimal scattered degenerative changes. Suggestion of mild hyperextensi on at several PIP joints on the oblique views. Preet Landeros M.D. [facility] documented in this encounter Visit Diagnoses Diagnosis Pain Hand Right - Primary Pain Hand Left Pain Hand Right Pain Hand Left documented in this encounter Additional Health Concerns Assessment Noted Time PHQ-9 Depression Total Score: 13 01/31/2021 1:51 PM CD T documented as of this encounter Care Teams Fiber Analyst Relationship Specialty Start Date End Date Elsewhere, Pcp PCP - General Family Medicine 08/11/19 documented as of this encounter
--- OUTSIDE RECORDS SUMMARY | 2022-06-23 22:41 | XMS_ITS | Encounter Summary ---
:1970 Author Organization [facility] Address [address] [place] [address] Care Team Providers Name Role Phone Elsewhere, Pcp Primary Care Provider Unavailable Reason for Referral Outpatient (Routine) - Closed Specialty Diagnoses / Procedures Referred By Contact Refer red To Contact Neurology Preet Landeros M.D. [facility] [address] [place] [phone] Referral ID Status Reason Start Date Expiration Date Visits Requ ested Visits Authorized [id number] Closed 11/09/2020 11/09/2021 1 1 Scheduling Instructions In 3 months before Botox BUILDING Reason for Visit Reason Comments Pre-visit Intake Outpatient (Routine) - Closed Specialty Diagnoses / Procedures Referred By Contact Kim cruz To Contact Neurology Preet Landeros M.D. [facility] [address] [place] [phone] Referral ID Status Reason Start Date Expiration Date Visits Requ ested Visits Authorized [id number] Closed 05/17/2020 05/17/2021 1 1 Encounter Details Date Type Department Care Team Description 11/09/2020 Office Visit Department of Preet Landeros, Sonia Garcia elsie (Primary Dx); Neurology in M.D. Apnea Sleep Obstructive [place], [place] [address] [facility] [address] [place] [phone] Social History Tobacco Use Types Packs/Day Years [...] or relatives? How often do you attend sabianist or More than 4 times per year 06/02/2022 spiritism services? Do you belong to any clubs or Yes 06/02/2022 organizations such as sabianist groups, unions, fraternal or athletic groups, or [...] as of this encounter Progress Notes Preet Landeros M.D. - 11/09/2020 8:00 AM CST SUBJECTIVE Chief Complaint: Paul Murphy returns today to discuss the results of tests and consultations. Since I last saw him he discontinued Excedrin but per his report he discuss with his primary care provider who wanted him to continue propranolol. He already received Botox injections twice and he is scheduled for the 3rd injections later today. His headache has not changed in frequency and continues to occur 20-25 days per month although he believes his headaches are about 20-25% less intense. He uses naproxen and sumatriptan as needed and he is not overusing those. He denies needing an antiemetic. Since I last saw him he has been evaluated in the Sleep Clinic for his sleep apnea. I have not received his outside brain MRI and I made him aware of this. His neuropsychological testing was not done because he had to cancel but this is scheduled to be done over the next few days. His routine blood work was normal with the exception of some leukocytosis on his CBC that he discussed with his primary care provider and was attributed to a toe infection that has since then been treated. He continues to have cognitive difficulties ASSESSMENT / PLAN #1 Chronic migraine with aura (visual) For now he will continue Botox injections and I will meet him in 3 months and if by then Botox has not given him meaningful benefit we will discontinue it and instead try Emgality. He can continue acute treatment with naproxen and sumatriptan as needed with previously discussed limitations to prevent m edication overuse headache. #2 Severe obstructive sleep apnea Management per my colleagues in the Sleep Clinic. #3 Cognitive difficulties I will follow-up on the results of his neuropsychological testing. I personally spent over half of a total 15 minutes face to face with the patient in counseling and discussion and/or coordination of care as described above. Addendum December 04, 2020 10:46 a.m. His neuro psychological testing was completed November 22, 2020. The neuro psychologist found significantly concerning levels of anxiety and depression for which psychiatry evaluation has been recommended. I discussed this with the patient today on the telephone and he accepted my recommendation to see a psychiatrist here. PATIENT EDUCATION Ready to learn, no apparent learning barriers were identified; learning preferences include listening. Explained diagnosis and treatment plan; patient expressed understanding of the content. documented in this encounter Plan of Treatment Upcoming Encounters Date Type Specialty Care Team Description 06/26/2022 Appointment Neurology Preet Landeros M.D . [address] [place] [phone] Bria Suh APRN, C.N.P., M.S.N. [address] [place] [phone] 07/25/2022 Appointment Radiology Preet aLnderos M.D . [address] [place], [place] [phone] (Wo rk) Scheduled Referrals Name Type Priority Associated Diagnoses Order S [facility] Neurology office Outpatient Referral Routine Expe cted: visit (clinic) 01/31/2021 (Approximate), Expires: 11/09/2023 documented as of this encounter Visit Diagnoses Diagnosis Migraine Headache - Primary Apnea Sleep Obstructive documented in this encounter Additional Health Concerns Assessment Noted Time PHQ-9 Depression Total Score: 6 11/09/2020 7:38 AM RN BUILDING documented as of this encounter Care Teams Complex Care Nurse Practitioner Relationship Specialty Start Date End Date Elsewhere, Pcp PCP - General Family Medicine 08/11/19 documented as of this encounter
--- OUTSIDE RECORDS SUMMARY | 2022-06-23 22:41 | XMS_ITS | Encounter Summary ---
:1970 Author Organization [facility] Address [address] [place] [address] Care Team Providers Name Role Phone Elsewhere, Pcp Primary Care Provider Unavailable Encounter Details Date Type Department Care Team Description 01/31/2021 Hospital Encounter Department of Preet Landeros Pain Taylor d Right; Radiology, Tawanda Pavon Pain Hand Left Building, in [address] [place], [place] [address] [place] [phone] [place], [place] [phone] (Work) [phone] Social History Tobacco Use Types Packs/Day Years [...] total) by mouth at Hyperlipidemia Mixed bedtime. clotrimazole (LOTRIMIN) Apply 1 application 0 10/2020 [...] injectionIndications: Diabetes Mellitus Type 2 Hyperglycemia (HCC), Fiber Optic Technician Use Of Insulin Active (HCC) insulin glargine [...] days. Last dose to be taken 01/31/2021. clotrimazole (LOTRIMIN) Apply topically as 0 03/0 [...] Appointment Neurology Preet Landeros M.D . [address] [place] [phone] Bria Suh APRN, C.N.P., M.S.N. [address] [place] [phone] 07/25/2022 Appointment Radiology Preet Landeros M.D . [address] [place] [phone] (Wo rk) documented as of this encounter Procedures Procedure Name Priority Date/Time Associated Comments Diagnosis DX HAND BILATERAL RAD - Routine 01/31/2021 4:38 Pain Hand Righ t Results for this 3+ VIEWS (most inpatients PM CDT Pain Hand Left procedure are in and all the results outpatients) section. documented in this encounter Results DX Hand Bilateral 3+ [...] PIP joints on the oblique views. Preet [facility] PROCE FINESSE documented in this encounter Visit Diagnoses Diagnosis Pain Hand Right Pain Hand Left documented in this encounter Additional Health Concerns Assessment Noted Time PHQ-9 Depression Total Score: 13 01/31/2021 1:51 PM CD T documented as of this encounter Care Teams Insurance Case Manager Relationship Specialty Start Date End Date Elsewhere, Pcp PCP - General Family Medicine 08/11/19 documented as of this encounter
--- OUTSIDE RECORDS SUMMARY | 2022-06-23 22:41 | XMS_ITS | Encounter Summary ---
:1970 Author Organization [facility] Address [address] [place] [address] Care Team Providers Name Role Phone Elsewhere, Pcp Primary Care Provider Unavailable Reason for Visit Outpatient (Routine) - Closed Specialty Diagnoses / Procedures Referred By Contact Refer red To Contact Nutrition Diagnoses Morbid Obesity Body Mass Index 50.0-59.9 Adult (HCC) Diabetes Mellitus Type 2 Hyperglycemia (HCC) Christiana Alvarez, BRET, [facility] C.N.P., M.S.N. [address] [place], [place] [phone] Referral ID Status Reason Start Date Expiration Date Visits Requ ested Visits Authorized [id number] Closed 08/03/2020 08/03/2021 1 1 Encounter Details Date Type Department Care Team Description 10/05/2020 Telemedicine Department of Farzana Chairez, Body Mass In dex 50.0 To Nutrition in M.S., RDN, LD 59.9 Adult (HC C) [place], [place] [address] [place] [phone] Social History Tobacco Use Types Packs/Day Years [...] or relatives? How often do you attend sikh or More than 4 times per year 06/02/2022 hoahaoism services? Do you belong to any clubs or Yes 06/02/2022 organizations such as sikh groups, unions, fraternal or athletic groups, or [...] place to sleep or slept in a longterm (including now)? 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 In addition, he has participated in the 12 week HEALTH class with some successful weight loss.He is wanting to pursue bariatric surgery at this time. He is trying to avoid snacking as much as possible Eating environment: reports that he does most of the cooking and grocery shopping. Averages 3 times per eating outside of the home (local diner/restaurant, fast food). He does work at [employer] and may prepare a meal while at work Food and beverage intake (timing varies depending on if he is working or not) ?? Breakfast: bowl of cereal (Raisin Bran or Grape Nuts) or Malian vanilla yogurt with cranberries and oranges ?? Lunch: sandwich or veggie wrap (at work) ?? Afternoon Snack: tries to avoid as much as possible ?? Evening Meal: varies- burger, bowl of soup or breakfast for dinner- eggs with toast (2 slices).He does enjoy fruits and veggies ?? Night Snack: sweets prior to bed- pudding, 2 cookies Beverage intake: whole milk with cereal in the morning, unsweetened iced tea throughout the day, coffee with cream and flavoring on occasion, alcohol very seldom Additional information: patient does have a Dexcom monitor Physical activity: Paul Murphy reports having an active job as he works in [employer]. He does not have a set exercise routine Weight History WT: - 145kg HT: - 164.5cm BMI: 53.6 Weight Change: full weight hx per wt mgmt questionnaire dated 09/20/2020. Intentional weight loss of 13kgs since 2018 Estimation of Nutritional Needs Calorie needs: 1900-2000cals/day (HB x 0.75) Protein: 100g/day Fluids: >2L/day NUTRITION DIAGNOSIS Overweight/obesity related to diet and lifestyle factors as evidenced by BMI 53.6 Nutrition Prescription/Recommendation Work towards intentional weight loss through goals outlined below INTERVENTION Education and Counseling: Weight management See Patient Education Record for information regarding education materials covered today. MONITORING AND EVALUATION: Nutrition parameter to monitor: food intake; weight Patient Goal(s): 1. Read nutrition labels and stick with foods <8g sugar and <2g saturated fat/serving, 2. Swapnighttime snack and keep <15g of carbohydrates per serving (discussed 1/2 serving almonds, stringcheese, hard boiled egg, etc), 3. 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 [address] [place] [phone] Bria Suh APRN, C.N.P., M.S.N. [address] [place] [phone] 07/25/2022 Appointment Radiology Preet Landeros M.D . [address] [place] [address] [phone] (Wo rk) documented as of this encounter Visit Diagnoses Diagnosis Body Mass Index 50.0 To 59.9 Adult (HCC) documented in this encounter Additional Health Concerns Assessment Noted Time PHQ-9 Depression Total Score: 16 05/17/2020 1:26 PM CD T documented as of this encounter Care Teams Seismograph Operator Relationship Specialty Start Date End Date Elsewhere, Pcp PCP - General Family Medicine 08/11/19 documented as of this encounter
--- OUTSIDE RECORDS SUMMARY | 2022-06-23 22:41 | XMS_ITS | Encounter Summary ---
:1970 Author Organization [facility] Address [address] [place] [address] Care Team Providers Name Role Phone Elsewhere, Pcp Primary Care Provider Unavailable Reason for Referral Outpatient (Routine) - Closed Specialty Diagnoses / Procedures Referred By Contact Refer red To Contact Diagnoses Migraine Headache Chronic Preet Landeros M.D. [facility] Procedures Botox for Chronic Migraine WV INJECTION,ONABOTULINUMTOXINA WV CHEMODENERV FACIAL TRIGEM NATALIE Botox (Onabotulinumtoxina) J0585 150 units every 12 weeks [address] [place], [place] [phone] Referral ID Status Reason Start Date Expiration Date Visits Requ ested Visits Authorized [id number] Closed 05/17/2020 05/17/2022 12 12 ITALITY HOUSEKEEPER Reason for Visit Outpatient (Routine) - Closed Specialty Diagnoses / Procedures Referred By Contact Refer red To Contact Diagnoses Migraine Headache Chronic Preet Landeros M.D. [facility] Procedures Botox for Chronic Migraine WV INJECTION,ONABOTULINUMTOXINA WV CHEMODENERV FACIAL TRIGEM NATALIE Botox (Onabotulinumtoxina) J0585 150 units every 12 weeks [address] [place], [place] [phone] Referral ID Status Reason Start Date Expiration Date Visits Requ ested Visits Authorized [id number] Closed 05/17/2020 05/17/2022 12 12 Encounter Details Date Type Department Care Team Description 11/09/2020 Hospital Encounter Department of Preet Landeros M.D. [address] [place] [phone] Migraine Headache Neurology in Gokul Boyd M.D. [address] [place] [phone] [place], [place] [address] [place] [phone] Social History Tobacco Use Types Packs/Day Years [...] More than 4 times per year 06/02/2022 hindu services? Do you belong to any clubs [...] mg iron) tablet mouth daily. with food insulin aspart U-100 18 units before each 30 mL 5 07/19 (NovoLOG Flexpen U-100 meal 3 times daily. 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 omeprazole (PriLOSEC) 40 Take 40 mg [...] application into spray,non-aerosol nostril(s) as needed (hypoglycemia). empagliflozin Take 1 tablet (25 mg 90 tablet 0 09/20/2020 0 12/28/2020 (JARDIANCE) 25 mg tablet total) by mouth every morning before breakfast. hydrocortisone-acetic INSTILL 4 DROPS IN 0 201901/31/2021 acid (ACETASOL HC) 1-2 % BOTH EARS FOUR TIMES otic solution DAILY FOR 7 DAYS metFORMIN (FORTAMET) 500 Take 1 tablet (500 mg 60 tablet 11 06/22/2020 01/30/2021 mg 24 hr tablet total) by mouth 2 (two) times a day with meals. multivitamin capsule daily. 0 03/09/201001/13 nystatin (MYCOSTATIN) 1,000,000 Units as 0 201903/28/2022 100,000 unit/mL needed. suspension ofloxacin (OCUFLOX) 0.3 Administer 1 drop 0 10/0901/08/2022 % ophthalmic solution into each ear as needed. pen needle, diabetic 4 Injection daily. 100 each 11 018 01/30/2021 (SURE-FINE PEN NEEDLES) 31 gauge x 5/16 needleIndications: Diabetes Mellitus Type 2 Hyperglycemia (HCC), Retirement Use Of Insulin Active (HCC) propranoloL (INDERAL) 40 Take 40 mg by mouth 2 0 08/31/2020 03/29/2022 mg tablet (two) times a day. sennosides-docusate Twice A Day 0 06/23/2020/02/2022 sodium (SENOKOT-S) 8.6-50 mg per tablet sertraline [...] encounter Procedure Notes Gokul Boyd M.D. - 11/09/2020 9:15 AM CSTAssociated Order(s): Botox for Chronic Migraine Pre-Procedure Diagnose(s): Migraine Headache Chronic Post-Procedure Diagnose(s): Migraine Headache Chronic Botox for Chronic Migraine Date/Time: 11/09/2020 8:38 AM Performed by: Gokul Boyd M.D. Authorized by: Preet Landeros M.D. Care team members present 1. Clarice Alejandro, LBonPBonNBon PROCEDURE DETAILS Pre-procedure pain score: 3/10 Injection of: 100 Units onabotulinumtoxinA 100 unit 50 Units onabotulinumtoxinA 50 unit Needle gauge: 30 Needle length: 0.5 in Injection site details Supervisory Geographer / Procerus muscle(s): 5 units into the left scagliola mechanic muscle, 5 units into the right scagliola mechanic muscle and 5 units into the procerus [...] that is not covered by a third green party. Prior to treatment with Botox, the [...] in between rounds). 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 [address] [place] [phone] Bria Suh APRN, C.N.P., M.S.N. [address] [place] [phone] 07/25/2022 Appointment Radiology Preet Landeros M.D . [address] [place] [phone] (Wo rk) documented as of this encounter Procedures Procedure Name Priority Date/Time Associated Comments Diagnosis WV CHEMODENERV FACIAL Routine 11/09/2020 9:15 AM Migraine Head ache Results for this TRIGEM NATALIE HOSPITALITY HOUSEKEEPER Chronic procedure are i n the results section. documented in this encounter Results WV CHEMODENERV FACIAL TRIGEM NATALIE (11/09/2020 9:15 AM HOSPITALITY HOUSEKEEPER) Narrative MMODAL - 11/09/2020 9:15 AM HOSPITALITY HOUSEKEEPER Gokul Boyd M.D. ? 11/09/2020 ??8:59 AM Botox for Chronic Migraine Date/Time: 11/09/2020 8:38 AM Performed by: Gokul Boyd M.D. Authorized by: Preet Landeros M.D. Care team members present 1. Clarice Alejandro L.P.NBon PROCEDURE DETAILS ?? Pre-procedure pain score: 3/10 Injection of: 100 Units onabotulinumtoxi nA 100 unit 50 Units onabotulinumtoxinA 50 unit Needle gauge: 30 Needle length: 0.5 in Injection site details Supervisory Geographer / Procerus muscle(s): 5 units into the left scagliola mechanic muscle, 5 units into the right scagliola mechanic muscle and 5 units into the procerus [...] that is not covered by a third green party. ?? Prior to treatment with Botox, [...] in between rounds). Headache days per month: 20 days Severe headache days per month: 7 days Wearing off phenomenon prior to this rou nd of Botox: yes Duration: 3 weeks POST-PROCEDURE DETAILS: Procedure completed successfully: yes Complications: [...] Dose Rate Site onabotulinumtoxinA injection 100 Given 11/09/2020 8:38 AM 100 Un its Units (BOTOX) HOSPITALITY HOUSEKEEPER 100 Units, injection, One-Time Injection, Starting on Kamilah 2/25/21 at 0838, For 1 dose onabotulinumtoxinA injection 50 Units Given 11/09/2020 8:[address] 50 Units (BOTOX COSMETIC) 50 Units, injection, One-Time Injection, Starting on [place] 11/09/20 at 0838, For 1 dose documented in this encounter Additional Health Concerns Assessment Noted Time PHQ-9 Depression Total Score: 6 11/09/2020 7:38 AM HOSPITALITY HOUSEKEEPER documented as of this encounter Care Teams Solution Consultant Relationship Specialty Start Date End Date Elsewhere, Pcp PCP - General Family Medicine 08/11/19 documented as of this encounter
--- OUTSIDE RECORDS SUMMARY | 2022-06-23 22:41 | XMS_ITS | Encounter Summary ---
:1970 Author Organization [facility] Address [address] [place] [phone] Care Team Providers Name Role Phone Elsewhere, Pcp Primary Care Provider Unavailable Reason for Referral Behavioral Health (Routine) - Closed Specialty Diagnoses / Procedures Referred By Contact Refer red To Contact Psychiatry / Psychiatry Diagnoses Depression Anxiety Preet Landeros M.D. [facility] [address] [place] [phone] Referral ID Status Reason Start Date Expiration Date Visits V isits Requested Authorized [id number] Closed Specialty 12/04/2020 12/04/2021 1 1 Services Required Encounter Details Date Type Department Care Team Description 12/04/2020 Orders Only Department of Neurology Preet Landeros, Reshma ession Anxiety in [facility] [place] (Primary Dx) [address] [place] [address] [address] [place] [phone] Social History Tobacco Use Types Packs/Day Years [...] or relatives? How often do you attend latter-day or More than 4 times per year 06/02/2022 druze services? Do you belong to any clubs or Yes 06/02/2022 organizations such as latter-day groups, unions, fraternal or athletic groups, or [...] Appointment Neurology Preet Landeros M.D . [address] [place] [phone] Bria Suh APRN, C.N.P., M.S.N. [address] [place] [phone] 07/25/2022 Appointment Radiology Preet Landeros M.D . 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
--- OUTSIDE RECORDS SUMMARY | 2022-06-23 22:41 | XMS_ITS | Encounter Summary ---
:1970 Author Organization [facility] Address [address] [place] [address] Care Team Providers Name Role Phone Elsewhere, Pcp Primary Care Provider Unavailable Reason for Visit Outpatient (Routine) - Closed Specialty Diagnoses / Procedures Referred By Contact Refer red To Contact Nutrition Diagnoses Morbid Obesity Body Mass Index 50.0-59.9 Adult (HCC) Diabetes Mellitus Type 2 Hyperglycemia (HCC) [facility] M.S.N[facility] [address] [place] [phone] Referral ID Status Reason Start Date Expiration Date Visits Requ ested Visits Authorized [id number] Closed 08/03/2020 08/03/2021 1 1 Encounter Details Date Type Department Care Team Description 09/25/2020 Telemedicine Department of Eve Blanchard Morbid Obesity Body Mass Index 50.0-59.9 Adult (HCC); Nutrition in A, RDN, LD Diabetes Mellitus Type 2 Hyperglycemia ( HCC) [place], [place] [address] [facility] [address] [place] [phone] Social History Tobacco Use Types Packs/Day [...] or relatives? How often do you attend yazidi or More than 4 times per year 06/02/2022 adventist services? Do you belong to any clubs or Yes 06/02/2022 organizations such as yazidi groups, unions, [email or web address] or athletic groups, or school groups? How [...] - Inhaled Oxygen Concentration - - Weight 145 kg (319 lb 10.7 oz) 09/25/2020 10:00 AM BIOFUELS PRODUCTION MANAGER Height 164.5 cm (5' 4.76) 09/25/2020 10:00 AM BIOFUELS PRODUCTION MANAGER Body Mass Index 53.58 09/25/2020 10:00 AM BIOFUELS PRODUCTION MANAGER documented in this encounter Progress Notes Eve Blanchard, KEVIN, LD - 09/25/2020 10:00 AM CST CHIEF COMPLAINT/REASON FOR VISIT Medical Nutrition Therapy for weight management Video visit - patient asked to reschedule as he was driving in his car. UELS PRODUCTION MANAGER documented in this encounter Plan of Treatment Upcoming Encounters Date Type Specialty Care Team Description 06/26/2022 Appointment Neurology Preet Landeros M.D . [address] [place] [phone] Bria Suh APRN, C.N.P., M.S.N. [address] [place] [phone] 07/25/2022 Appointment Radiology Preet Landeros M.D . [address] [place] [phone] (Wo rk) documented as of this encounter Visit Diagnoses Diagnosis Morbid Obesity Body Mass Index 50.0-59.9 Adult (HCC) Diabetes Mellitus Type 2 Hyperglycemia ( HCC) documented in this encounter Additional Health Concerns Assessment Noted Time PHQ-9 Depression Total Score: 16 05/17/2020 1:26 PM CD T documented as of this encounter Care Teams Hand Fabric Cutter Relationship Specialty Start Date End Date Elsewhere, Pcp PCP - General Family Medicine 08/11/19 documented as of this encounter
--- OUTSIDE RECORDS SUMMARY | 2022-06-23 22:41 | XMS_ITS | Encounter Summary ---
:1970 Author Organization [facility] Address [address] [place] [address] Care Team Providers Name Role Phone Elsewhere, Pcp Primary Care Provider Unavailable Reason for Referral Outpatient (Routine) - Closed Specialty Diagnoses / Procedures Referred By Contact Refer red To Contact Diagnoses Migraine Headache Chronic Preet Landeros M.D. [facility] Procedures Botox for Chronic Migraine LA INJECTION,ONABOTULINUMTOXINA LA CHEMODENERV FACIAL TRIGEM NATALIE Botox (Onabotulinumtoxina) J0585 150 units every 12 weeks [address] [place] [phone] Referral ID Status Reason Start Date Expiration Date Visits Requ ested Visits Authorized [id number] Closed 05/17/2020 05/17/2022 12 12 RE [employer] ADVISOR Reason for Visit Outpatient (Routine) - Closed Specialty Diagnoses / Procedures Referred By Contact Refer red To Contact Diagnoses Migraine Headache Chronic Preet Landeros M.D. [facility] Procedures Botox for Chronic Migraine LA INJECTION,ONABOTULINUMTOXINA LA CHEMODENERV FACIAL TRIGEM NATALIE Botox (Onabotulinumtoxina) J0585 150 units every 12 weeks [address] [place], [place] [phone] Referral ID Status Reason Start Date Expiration Date Visits Requ ested Visits Authorized [id number] Closed 05/17/2020 05/17/2022 12 12 Encounter Details Date Type Department Care Team Description 08/16/2020 Hospital Encounter Department of Preet Landeros M.D. [address] [place] [phone] Migraine Headache Neurology in JacobLeandro M.D. [address] [place] [phone] Chronic [place], [place] [address] [place] [phone] Social History Tobacco Use Types Packs/Day Years [...] or relatives? How often do you attend taoist or More than 4 times per year 06/02/2022 roman catholic services? Do you belong to any clubs or Yes 06/02/2022 organizations such as taoist groups, unions, fraternal or athletic groups, or [...] place to sleep or slept in a usp (including now)? Education Answer Date Recorded What [...] injectionIndications: Diabetes Mellitus Type 2 Hyperglycemia (HCC), Mcc Use Of Insulin Active (HCC) insulin glargine [...] by mouth [address] capsule daily. [employer] VERIO strips Test blood glucose 8 720 [...] 01/30/2021 (SURE-FINE PEN NEEDLES) 31 gauge x /16 needleIndications: Diabetes Mellitus Type 2 Hyperglycemia (HCC), Mcc Use Of Insulin Active (HCC) propranoloL (INDERAL) [...] encounter Procedure Notes Leandro James M.D. - 08/16/2020 8:45 AM CSTAssociated Order(s): Botox for Chronic Migraine Pre-Procedure Diagnose(s): Migraine Headache Chronic Post-Procedure Diagnose(s): Migraine Headache Chronic Botox for Chronic Migraine Date/Time: 08/16/2020 8:37 AM Performed by: Leandro James M.D. Authorized by: Preet Landeros M.D. PROCEDURE DETAILS Pre-procedure pain score: 3/10 Injection of: 100 Units onabotulinumtoxinA 100 unit 50 Units onabotulinumtoxinA (cosmetic) 50 unit Needle gauge: 30 Needle length: 0.5 in Injection site details Merchandise Planning Manager / Procerus muscle(s): 5 units into the left air intelligence specialist muscle, 5 units into the right air intelligence specialist muscle and 5 units into the procerus [...] in between rounds). Headache days per month: 15 days Severe headache days per month: 4 days Wearing off phenomenon prior to this round of Botox: no POST-PROCEDURE DETAILS: Procedure completed successfully: yes Complications: no apparent complications RE [employer] ADVISOR documented in this encounter Plan of Treatment Upcoming Encounters Date Type Specialty Care Team Description 06/26/2022 Appointment Neurology Preet Landeros M.D . [address] [place] [phone] Bria Suh APRN, C.N.P., M.S.N. [address] [place] [phone] 07/25/2022 Appointment Radiology Preet Landeros M.D . [address] [place] [phone] (Wo rk) documented as of this encounter Procedures Procedure Name Priority Date/Time Associated Comments Diagnosis LA CHEMODENERV FACIAL Routine 08/16/2020 8:45 AM Migraine Head ache Results for this TRIGEM NATALIE FUTURE [employer] ADVISOR Chronic procedure are i n the results section. documented in this encounter Results LA CHEMODENERV FACIAL TRIGEM NATALIE (08/16/2020 8:45 AM FUT[employer] ADVISOR) Narrative MMODAL - 08/16/2020 8:45 AM FUTURE [employer] ADVISOR Leandro James M.D. ? 08/16/2020 ??9:47 AM Botox for Chronic Migraine Date/Time: 08/16/2020 8:37 AM Performed by: Leandro James M.D. Authorized by: Preet Landeros M.D. PROCEDURE DETAILS ?? Pre-procedure pain score: 3/10 Injection of: 100 Units onabotulinumtoxi nA 100 unit 50 Units onabotulinumtoxinA (cosmetic) 50 unit Needle gauge: 30 Needle length: 0.5 in Injection site details Merchandise Planning Manager / Procerus muscle(s): 5 units into the left air intelligence specialist muscle, 5 units into the right air intelligence specialist muscle and 5 units into the procerus [...] in between rounds). Headache days per month: 15 days Severe headache days per month: 4 days Wearing off phenomenon prior to this rou nd of Botox: no POST-PROCEDURE DETAILS: Procedure completed successfully: yes Complications: no apparent complications Preet Landeros M.D. NEUROLOGY ORDERABLES Performing Organization Address City/State/ZIP Code Phon e Number MMODAL MMODAL NA documented in this encounter Visit Diagnoses Diagnosis Migraine Headache Chronic documented in this encounter Administered Medications Inactive Administered Medications - up to 3 most recent administrations Medication Order MAR Action Action Date Dose Rate Site onabotulinumtoxinA (cosmetic) Given 08/16/2020 8:37 AM 50 Units injection 50 Units (BOTOX FUT[employer] ADVISOR COSMETIC) 50 Units, injection, One-Time Injection, Starting on Fri08/16/20 at 0837, For 1 dose onabotulinumtoxinA injection 100 Units Given 08/16/2020 8:37 AM F[employer] ADVISOR 100 Units (BOTOX) 100 Units, injection, One-Time Injection, Starting on Fri08/16/20 at 0837, For 1 dose documented in this encounter Additional Health Concerns Assessment Noted Time PHQ-9 Depression Total Score: 16 05/17/2020 1:26 PM CD T documented as of this encounter Care Teams Varnish Remover Relationship Specialty Start Date End Date Elsewhere, Pcp PCP - General Family Medicine 08/11/19 documented as of this encounter
--- OUTSIDE RECORDS SUMMARY | 2022-06-23 22:41 | XMS_ITS | Encounter Summary ---
:1970 Author Organization [facility] Address [address] [place] [phone] Care Team Providers Name Role Phone Elsewhere, Pcp Primary Care Provider Unavailable Reason for Visit Reason Comments Pain Pain Outpatient (Routine) - Canceled Specialty Diagnoses / Procedures Referred By Contact Refer red To Contact Orthopedic Surgery Diagnoses Pain Hand Right Pain Hand Left Preet Landeros M.D. [facility] [address] [place] [phone] Referral ID Status Reason Start Date Expiration Date Visits V isits Requested Authorized [id number] Canceled 01/31/2021 01/31/2022 1 1 Encounter Details Date Type Department Care Team Description 03/27/2021 Admin Visit Department of Orthopedic Leana Falk M.D. No Show Surgery in [address] [place] [phone] [place] [phone] Social History Tobacco Use Types Packs/Day Years [...] or relatives? How often do you attend mormon or More than 4 times per year 06/02/2022 anabaptism services? Do you belong to any clubs or Yes 06/02/2022 organizations such as mormon groups, unions, fraternal or athletic groups, or [...] Appointment Neurology Preet Landeros M.D . [address] [place] [phone] Bria Suh APRN, C.N.P., M.S.N. [address] [place] [phone] 07/25/2022 Appointment Radiology Preet Landeros M.D . [address] [place] [phone] (Wo rk) documented as of this encounter Visit Diagnoses Not on filedocumented in this encounter Additional Health Concerns Assessment Noted Time PHQ-9 Depression Total Score: 12 02/01/2021 9:43 AM CD T documented as of this encounter Care Teams Coin Purse Framer Relationship Specialty Start Date End Date Elsewhere, Pcp PCP - General Family Medicine 08/11/19 documented as of this encounter
--- OUTSIDE RECORDS SUMMARY | 2022-06-23 22:41 | XMS_ITS | Encounter Summary ---
:1970 Author Organization [facility] Address [address] [place] [address] Care Team Providers Name Role Phone Elsewhere, Pcp Primary Care Provider Unavailable Reason for Visit Outpatient (Routine) - Closed Specialty Diagnoses / Procedures Referred By Contact Refer red To Contact Video Medicine Diagnoses Snoring Apnea Sleep Obstructive Jakub Santana, [facility] Roshan QUEEN M.S.N. [address] [place] [address] Referral ID Status Reason Start Date Expiration Date Visits Requ ested Visits Authorized [id number] Closed 07/05/2020 07/05/2021 1 1 Encounter Details Date Type Department Care Team Description 09/06/2020 [facility] Jakub Santana Snoring; Medicine in [place], , Roshan QUEEN, A pnea Sleep Obstructive [place] M.S.N. [address] [place] [address] [address] [place] [phone] Social History Tobacco Use Types Packs/Day Years [...] or relatives? How often do you attend taoism or More than 4 times per year 06/02/2022 mormonism services? Do you belong to any clubs or Yes 06/02/2022 organizations such as taoism groups, unions, fraIndyarocks or athletic groups, or school groups? How [...] documented as of this encounter Progress Notes Jakub Santana APRN, C.N.P., M.S.N. - 09/06/2020 3:30 PM CST REASON FOR VIDEO VISIT: TYSON follow-up Pap compliance HISTORY OF PRESENT ILLNESS: Consult conducted via real-time audio/video technology by Jakub Santana APRN, C.N.P., M.S.N. at [facility] to the patient's home. Video visit completed largely due to social distancing associated with COVID-19. I last met with patient on 07/05/2020. See IRP notes from that visit below: Reviewed device download in detail with Mr. Murphy. When he uses PAP therapy it appears to be effective as evidence by low residual AHI. He does have very severe sleep apnea which I reminded him of today. He should strive towards all night, every night use with PAP therapy. He is willing to work towards this goal. He states 1 of the reasons he stopped using the device back in November of this year was because he had problems acquiring PAP equipment because of COVID. I would like to follow up with him in about 2 months to see how he is doing with therapy. He is willing to do this and therefore will setup a video follow-up visit. At this time, do not have access to his device download online through [employer]. He is going to talk to his vendor [place] and ask them to aydin me access. Patient was given a paper renewal prescription today and we will also plan to fax a copyof the prescription to Miguel per his request. Previous download revealed: ?? Today, Resmed device download from 08/08/2020-09/06/2020 reveals CPAP pressure setting of 13 cm H2O.EPR was off. Ramp time of 20 minutes with starting pressure is 7 cm H2O. Median air leak at 2.8 L per minute and 95th percentile air leak at 14.1 L per minute utilizing ResMed Air Touch F20 interface. Residual AHI at 7.1 (hypopnea index of 2.9, obstructive index 0.7, central index 3.2, unknown index 0.2); no [place]Nava respirations detected by the device. Average daily use on days used 7 hours and29 minutes. Patient denies air hunger. Does note occasional bloating an excess belching and flatus but not complaining of abdominal pain per se. Significant other has not noted any breakthrough snoring or apnea with use of PAP therapy. Patient does feel quite comfortable utilizing the ResMed air Touch F 20 interface and does not think there is any significant leakage most of the time. He does feel the seal is good even with facial hair. He does feel little bit more refreshed with treatment and says he has a little bit less daytime somnolence. ESS=10. Previous [place] score of 12. 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 Paul Murphy. Compliance is improving significantly. Heis now getting on average 7-1/2 hours per night. Residual AHI is bit elevated 7.1. Recommend switching to auto PAP mode with setting of 10-15 cm H2O. Perhaps this will reduce aerophagia as it may allowfor lower pressures periodically. Overall, he is tolerating PAP therapy very well and tolerating theResMed air Touch F20 interface well. I have asked him to send me a portal message in approximately 2-4 weeks to let me know how he is doing with these pressure changes. I will take a look at the devicedownload and report back to him once I receive that message. I congratulate him on his excellent start back on PAP therapy and encouraged him to continue with all night, every night use. Encouraged himto contact me if he has any other PAP related questions or sleep concerns. Otherwise, will plan to hear back from in approximately 2-4 weeks. The PAP device continues to meet the patient's medical need regarding treatment of sleep-related disordered breathing. The replacement of PAP accessories is medically necessary and is essential for theeffective use of PAP therapy. All questions answered to the best of my ability. Patient verbalized understanding of the plan of care and is in agreement. PATIENT EDUCATION Ready to learn, no apparent learning barriers were identified; learning preferences include listening. Explained diagnosis and treatment plan; patient expressed understanding of the content. I personally spent a total of 25 minutes in nch-qxco-br-face time performing a review of the record and/or discussion with the patient/caregiver as described above. UCTION OPERATOR documented in this encounter Plan of Treatment Upcoming Encounters Date Type Specialty Care Team Description 06/26/2022 Appointment Neurology Preet Landeros M.D . [address] [place] [phone] Bria Suh APRN, C.N.P., M.S.N. [address] [place] [phone] 07/25/2022 Appointment Radiology Preet Landeros M.D . [address] [place], [place] [phone] (Wo rk) documented as of this encounter Visit Diagnoses Diagnosis Snoring Apnea Sleep Obstructive documented in this encounter Additional Health Concerns Assessment Noted Time PHQ-9 Depression Total Score: 16 05/17/2020 1:26 PM CD T documented as of this encounter Care Teams Handbag Stitcher Relationship Specialty Start Date End Date Elsewhere, Pcp PCP - General Family Medicine 08/11/19 documented as of this encounter
--- OUTSIDE RECORDS SUMMARY | 2022-06-23 22:41 | XMS_ITS | Encounter Summary ---
:1970 Author Organization [facility] Address [address] [place] [address] Care Team Providers Name Role Phone Elsewhere, Pcp Primary Care Provider Unavailable Reason for Visit Reason Comments Med Refill Encounter Details Date Type Department Care Team Description 12/28/2020 Refill Division of Endocrinology in Marjan Acosta M.B., Med Refill [place], [place] Ch.B. [address] [facility] [address] [place] [phone] [place], [place] [phone] (Wo rk) Social History Tobacco Use Types [...] More than 4 times per year 06/02/2022 taoist services? Do you belong to any clubs [...] Appointment Neurology Preet Landeros M.D . [address] [place] [phone] Bria Suh APRN, C.N.P., M.S.N. [address] [place] [phone] 07/25/2022 Appointment Radiology Preet Landeros M.D . [address] [place] [phone] (Wo rk) documented as of this encounter Visit Diagnoses Not on filedocumented in this encounter Additional Health Concerns Assessment Noted Time PHQ-9 Depression Total Score: 6 11/09/2020 7:38 AM HEAD CASHIER documented as of this encounter Care Teams Jewelry Casting Model Maker Apprentice Relationship Specialty Start Date End Date Elsewhere, Pcp PCP - General Family Medicine 08/11/19 documented as of this encounter
--- OUTSIDE RECORDS SUMMARY | 2022-06-23 22:41 | XMS_ITS | Encounter Summary ---
:1970 Author Organization [facility] Address [address] [place] [address] Care Team Providers Name Role Phone Elsewhere, Pcp Primary Care Provider Unavailable Reason for Referral Outpatient (Routine) - Closed Specialty Diagnoses / Procedures Referred By Contact Refer red To Contact Video Medicine Diagnoses Snoring Apnea Sleep Obstructive Jakub Santana, [facility] Roshan QUEEN, M.S.N. [address] [place] [address] Referral ID Status Reason Start Date Expiration Date Visits Requ ested Visits Authorized [id number] Closed 07/05/2020 07/05/2021 1 1 Scheduling Instructions 2 month follow-up via video visit Reason for Visit Outpatient (Routine) - Closed Specialty Diagnoses / Procedures Referred By Contact Refer red To Contact Sleep Medicine Diagnoses Snoring Apnea Sleep Obstructive Preet Landeros M.D. [facility] [address] [place] [address] Referral ID Status Reason Start Date Expiration Date Visits V isits Requested Authorized [id number] Closed Specialty 05/17/2020 05/17/2021 1 1 Services Required Encounter Details Date Type Department Care Team Description 07/05/2020 Comprehensive Visit [facility] Jasmin Santana ing; Medicine in Jakub Johsnton APRN, Apnea Sleep Ob structive [place], [place] Roshan, M.S.N. [address] [facility] [address] [place] [phone] Social History Tobacco Use Types Packs/Day Years [...] More than 4 times per year 06/02/2022 buddhism services? Do you belong to any clubs [...] as of this encounter Progress Notes Jakub Santana, BRET, CBonN.P., M.S.N. - 07/05/2020 2:30 PM CDT SUBJECTIVE CHIEFCOMPLAINT/REASON FOR CONSULT History of sleep apnea Snoring HISTORY OF PRESENT ILLNESS Mr. Murphy is a 50 y.o. male who is seen by request of Preet Landeros M.D. for above concern. Past medical history significant for hypertension, DM2, morbid obesity with BMI of 54.9, hyperlipidemia, history of tobacco dependence, TYSON, malignant neoplasm of the kidney. Per referring provider note from 05/17/2020: [Outside diagnosis of obstructive sleep apnea] I think treating this might help his chronic daily headache syndrome and improve his cognitive function. He accepted my recommendation to be seen in the Sleep Clinic here. Maybe my colleagues in the Sleep Clinic have treatment options that he might tolerate better than the CPAP he has at home. Split night polysomnogram completed 03/24/2018 revealed an overall AHI of 110 events per hour with an RDI of 114 events per hour. Average oxygen saturation was 90% with an oxyhemoglobin steve of 74%. Total sleep time was 152.5 minutes with a sleep efficiency of 65%. No REM sleep recorded during the diagnostic portion study. Grade 2-3 snoring noted. ECG revealed sinus rhythm during the study.0 PLMS noted. CPAP was titrated up to 13 cm H2O utilizing an air fit F20 fullface mask. Weight at time of original study was 158 kg and now 149 kg. He states he is working towards weight loss. Considering bariatric surgery. Patient was last seen by Dr. Tone Connors at [facility] on 01/04/2019. At that time, Pap device download revealed a residual AHI of 2.8 with CPAP pressure of 13 cm H2O. Percentage of days used grade 4hours was 84%. Of note, patient was originally diagnosed with sleep apnea [facility] by Dr. Ophelia Elder. ResMed AirSense 10 AutoSet device download from 08/28/2019-11/25/2019 reveals CPAP pressure setting of 13 cm H2O. Median air leak at 0 L per minute and 95th percentile air leak at 0 L per minute utilizing ResMed AirTouch F20 interface. Residual AHI at 2.1 with no significant degree of central apnea orCheyne-Nava respirations detected by the device. Average daily use 2 hours and 59 minutes with percentage of days used greater than 4 hours at 38%. Sleep history: -Sleep aid: Uses melatonin 8 mg q.h.s.. -Bedtime: 10:30-11:30 p.m.. -Sleep onset latency: 20 minutes. -Preferred sleep position: Left side. -Sleep interruptions: Upon average 5 times per night for unclear reasons. Estimates he spends about 40 minutes awake each night. -Snoring: Yes. -Witnessed apnea: Yes. -Breathing related arousals: Patient does have a history of snort arousals. -Arise time: 8:00 a.m. a work days and 9:00 a.m. on days off -Refreshed: No. -Dry Mouth: Monthly. 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 -Bed covers disheveled: No. -ESS score: 12. -MVA or near miss accident associated with sleepiness: No. -Daytime somnolence: No. -Nap: No. -Estimated average hours of sleep per night: 8 hours. Patient denies any history of hypnagogic hallucinations, sleep paralysis, sleep walking/eating, or narcolepsy. History of some dream enactment with hitting/slapping head, arms flailing and occasionallyhitting spouse. He does occasionally wake up and has some recollection of vivid dreams being associated with this. This seems to be most notable over the last 2 years however over the last 6 months or so he has actually fallen out of bed 2 or 3 times which has not happened previously. He has also noted some increased difficulty with balance over the last year or so. He has not noted tremor. He does have some occasional constipation. He does suffer from depression. He is not think there is any significant anosmia. He thinks his father may have Parkinson's dementia. Notes a history of bruxism. . Usually sleeps alone in chair as he feels more comfortable sitting more upright at night and also due to acting out dreams he does not want to her to spouse. Has some history of depression. Denies significant depressive symptoms presently. Admits to worry in bed and some history of anxiety ingeneral. Consumes 5 servings of caffeinated beverage daily. No drug use. REVIEW OF SYSTEMS Respiratory: Positive for sleep disturbances due to breathing. Neurological: Positive for excessive daytime sleepiness. Psychiatric/Behavioral: Positive for excessive daytime sleepiness/tiredness, snores loudly, stop breathing, choking, or gasping while asleep and sleep disturbance. OBJECTIVE Patient Active Problem List Diagnosis ??? Hypertension Essential Primary ??? Diabetes Mellitus Type 2 Hyperglycemia (HCC) ??? Carcinoma Renal Cell Left (HCC) ??? Longterm Use Of Insulin Active (HCC) ??? Body Mass Index 50.0 To 59.9 Adult (HCC) ??? Eczema ??? Hyperlipidemia Mixed ??? Psoriasis ??? Elevated Troponin ??? Tobacco Use ??? Apnea Sleep Obstructive Past Surgical History: Procedure Laterality Date ??? APPENDECTOMY N/A 10/30/1984 Appendectomy ??? APPENDECTOMY Sep 1983 ??? HERNIA REPAIR 2012? PRIMARY REPAIR OF INCISIONAL HERNIA N/A 05/29/2011 Repair initial incisional or ventral hernia; incarcerated or strangulated.. Current Outpatient Medications: ??? aspirin 81 mg capsule, Take 81 mg by mouth daily., Disp: , Rfl: ??? atorvastatin (LIPITOR) 40 mg tablet, Take 1 tablet (40 mg total) by mouth at bedtime., Disp: 90 tablet, Rfl: 3 ??? Dexcom G6 Sensor device, , Disp: , Rfl: ??? Dexcom G6 Transmitter device, , Disp: , Rfl: ??? empagliflozin (JARDIANCE) 10 mg tablet, Take 1 tablet (10 mg total) by mouth every morning before breakfast., Disp: 90 tablet, Rfl: 3 ??? ferrous sulfate 324 mg (65 mg iron) DR tablet, Take 65 mg of iron by mouth daily., Disp: , Rfl: ??? glucagon (Baqsimi) 3 mg/actuation spray,non-aerosol, Administer 1 application into nostril(s) asneeded (hypoglycemia)., Disp: 2 each, Rfl: 3 ??? insulin aspart U-100 (NovoLOG Flexpen U-100 Insulin) 100 unit/mL injection, 18 units before eachmeal 3 times daily., Disp: 30 mL, Rfl: 5 ??? insulin glargine (Lantus Solostar U-100 Insulin) 100 unit/mL (3 mL) injection, Inject 20 Units under the skin at bedtime., Disp: 15 mL, Rfl: 11 ??? ipratropium (ATROVENT) 0.03 % nasal spray, Administer 2 sprays into each nostril 2 (two) times aday., Disp: , Rfl: ??? ketoconazole (NIZORAL) 2 % shampoo, Apply 1 application topically 2 (two) times a week., Disp: ,Rfl: ??? levocetirizine (XYZAL) 5 mg tablet, Take 5 mg by mouth every evening., Disp: , Rfl: ??? liraglutide (Victoza 3-Brijesh) 0.6 mg/0.1 mL (18 mg/3 mL) injection, Inject 1.8 mg under the skin daily., Disp: 27 mL, Rfl: 3 ??? metFORMIN (FORTAMET) 500 mg 24 hr tablet, Take 1 tablet (500 mg total) by mouth 2 (two) times a day with meals., Disp: 60 tablet, Rfl: 11 ??? miscellaneous medical supply misc, CPAP supplies, Heated humidifier x 1, Humidifier chamber x 1,, Disp: , Rfl: ??? multivitamin capsule, daily., Disp: , Rfl: ??? naproxen (NAPROSYN) 500 mg tablet, Take 500 mg by mouth 2 (two) times a day as needed., Disp: , Rfl: ??? omeprazole (for_PriLOSEC) 20 mg capsule, Take 20 mg by mouth every morning before breakfast., Disp: , Rfl: ??? ONETOUCH VERIO strips, Test blood glucose 8 times per day, Disp: 720 strip, Rfl: 3 ??? pen needle, diabetic (SURE-FINE PEN NEEDLES) 31 gauge x 5/16 needle, 4 Injection daily., Disp: 100 each, Rfl: 11 ??? propranoloL (INDERAL) 60 mg tablet, Take 40 mg by mouth 2 (two) times a day. , Disp: , Rfl: ??? sertraline (ZOLOFT) 100 mg tablet, Take 100 mg by mouth daily., Disp: , Rfl: ??? SUMAtriptan (IMITREX) 50 mg tablet, Take 50 mg by mouth as needed. May repeat dose once in 2 hours if migraine unresolved. Do not exceed 200 mg in 24 hours., Disp: , Rfl: ??? valsartan (DIOVAN) 80 mg tablet, TAKE 1 TABLET (80 MG TOTAL) BY MOUTH DAILY., Disp: 90 tablet, Rfl: 3 Current Facility-Administered Medications: ??? glucagon injection 1 mg (GlucaGen), 1 mg, intravenous, Once, Carmen Gallo M.B., B.Ch. Lab Results Component Value Date NA 144 07/05/2020 K 4.2 07/05/2020 CREATININE 1.04 07/05/2020 EGFR 83 07/05/2020 HCO3 29 07/05/2020 GLUCOSE 130 07/05/2020 CALCIUM 9.4 07/05/2020 HGBA1C 6.0 (H) 09/04/2018 CHOL 134 05/27/2018 HDL 41 05/27/2018 LDLCALC 65 05/27/2018 TRIG 139 05/27/2018 TTLCHOLHDLRT 5.00 02/13/2017 TSH 0.6 07/05/2020 AST 17 07/05/2020 ALT 17 07/05/2020 ALKPHOS 96 07/05/2020 BUN 16 07/05/2020 Lab Results Component Value Date WBC 11.5 (H) 07/05/2020 HGB 14.3 07/05/2020 HCT 44.8 07/05/2020 MCV 85.0 07/05/2020 PLT 283 07/05/2020 Results for orders placed during the hospital encounter of 10/02/18 DX Chest AP or PA and Lateral 2 Views Narrative EXAM: DX CHEST AP OR PA AND LATERAL 2 VIEWS Impression IMPRESSION: No change since 11/23/2015. Mild left basilar atelectasis or scarring. Benign 3 mm nodule in the right base is stable back to at least CT from 08/07/2015. Prominent cardiac fat pads. Prominent extrapleural fat, left greater than right. Chest otherwise negative. VITAL SIGNS There were no vitals filed for this visit. BP Readings from Last 3 Encounters: 06/22/20 (!) 101/51 09/11/18 141/60 09/11/18 122/78 Wt Readings from Last 3 Encounters: 06/22/20 (!) 149 kg 09/11/18 (!) 148 kg 09/11/18 (!) 148 kg Estimated body mass index is 54.97 kg/m?? as calculated from the following: Height as of 06/22/20: 164.8 cm. Weight as of 06/22/20: 149 kg. PHYSICAL EXAM General: Well groomed, pleasant, and in no acute distress. Head: Head normocephalic, atraumatic. Eyes: Eyes PERRLA, conjunctivae noninjected. EOMI. Neck: Neck circumference 52 cm. Neck thick. Heart: S1, S2. Regular rate and rhythm. No extra heart sounds auscultated. Lungs: Clear to auscultation with good aeration throughout. No adventitious sounds. Abdomen: Soft, nontender. No palpable organomegaly or masses. Bowel sounds active. No abdominal bruit auscultated. Normal rise and fall of the abdomen with breathing. Skin: Intact, warm, and dry generally. Vessels: No carotid bruit auscultated. No jugular venous distention and no abdominal jugular reflux.Radial and pedal pulses palpable and regular. No pedal edema. Neuro: Denies any significant paresthesias on exam. No tremor. Cranial nerves grossly intact. Ambulation was slow and steady without any sign of festination or freezing. He was able to pivot without difficulty. When he 1st stood up from sitting position he was a bit off balance and had to stand for a moment in place. Romberg test negative without pronator drift. Pullback/jerk test while standing did not result in any significant loss of balance. No significant rigidity noted in the extremities asidefrom perhaps very mild noted in the left upper extremity with distraction. Movements are slow and seems somewhat suggestive of bradykinesia. He had some difficulty with rapid alternating hand movementsand fine motor finger to nose to finger testing. Also, mild difficulty with [id number]-[id number] testing. Lymphatics: No supra or infraclavicular adenopathy. Psychiatric: Answers questions in a slow, logical fashion. Mental processing seems a little bit slowed and patient states he has noted this. However, during the visit he was dealing with a low normal blood sugar. Despite this, he notes slowed mental processing has been an issue. Cooperative with exam and follows instructions without difficulty. Makes intermittent eye contact during exam. Speech slow rate and soft tone. Affect is flat and mood congruent. Patient is not fidgety or restless and does not appear anxious. Stays on topic with conversation, no flight of ideas. Judgment and insight seem to be grossly intact. Musculoskeletal: Ambulates independently with slow, steady gait. No abnormal movements observed. ASSESSMENT / PLAN #1 Severe obstructive sleep apnea with AHI [...] access to his device download online through [employer]. He is going to talk to his vendor ([place] and ask them to aydin me access. Patient was given a paper renewal prescription today and we will also plan to fax a copyof the prescription to Miguel per his request. Regarding dream enactment and possible RBD, recommend that he continue on melatonin but he may want to increase the dose from 8 mg up to 10 mg and possibly up to 12 mg which may help reduce frequency of dream enactment. He has had increasing dream enactment frequency over the last year and more significant occurrences with 2 or 3 episodes where he actually fell out of bed. We did talk a little bit about dream enactment an RBD today and how it can be associated with movement disorders. Patient has had increasing difficulty with gait stability in balance over the last year so. He also notes some slowing of mental processing and perhaps some mild cognitive impairment. Therefore, I have referred him to Neurology for a further workup based on concern of possible development of a movement disorder. We could also consider a PSG to monitor for REM sleep without atonia. However, by history it sounds likehe probably does have some degree of RBD. If he starts to have more self-injurious behavior with dream enactment then he should follow-up with a sleep medicine neurologist to discuss further treatment/testing options. The PAP device continues to meet the patient's medical need regarding treatment of sleep-related disordered breathing. The replacement of PAP accessories is medically necessary and is essential for theeffective use of PAP therapy. All questions answered to the best my ability. Provided patient with my card which includes [facility] [facility] contact information. Encourage patient to call with any questions. Patient verbalized understanding of the plan of care and is in agreement. PATIENT EDUCATION Ready to learn, no apparent learning barriers were identified; learning preferences include listening. Explained diagnosis and treatment plan; patient expressed understanding of the content. I personally spent over half of a total 45 minutes face to face with the patient in counseling and discussion and/or coordination of care as described above. documented in this encounter Plan of Treatment Upcoming Encounters Date Type Specialty Care Team Description 06/26/2022 Appointment Neurology Preet Landeros M.D . [address] [place] [phone] Bria Suh APRN, C.N.P., M.S.N. [address] [place] [phone] 07/25/2022 Appointment Radiology Preet Landeros M.D . [address] [place] [phone] (Wo rk) Scheduled Referrals Name Type Priority Associated Diagnoses Order S chedule Video anyplace Outpatient Referral Routine Snoring Expected: visit Apnea Sleep 07/05/2020 Obstructive (Approximate), Expires: 07/05/2023 documented as of this encounter Visit Diagnoses Diagnosis Snoring Apnea Sleep Obstructive documented in this encounter Additional Health Concerns Assessment Noted Time PHQ-9 Depression Total Score: 16 05/17/2020 1:26 PM CD T documented as of this encounter Care Teams Electric Welder Relationship Specialty Start Date End Date Elsewhere, Pcp PCP - General Family Medicine 08/11/19 documented as of this encounter
--- OUTSIDE RECORDS SUMMARY | 2022-06-23 22:41 | XMS_ITS | Encounter Summary ---
:1970 Author Organization [facility] Address [address] [place] [address] Care Team Providers Name Role Phone Elsewhere, Pcp Primary Care Provider Unavailable Reason for Referral Outpatient (Routine) - Closed Specialty Diagnoses / Procedures Referred By Contact Refer red To Contact Diagnoses Migraine Headache Chronic Preet Landeros M.D. [facility] Procedures Botox for Chronic Migraine [place] INJECTION,ONABOTULINUMTOXINA [place] CHEMODENERV FACIAL TRIGEM NATALIE Botox (Onabotulinumtoxina) J0585 150 units every 12 weeks [address] [place], [place] [address] Referral ID Status Reason Start Date Expiration Date Visits Requ ested Visits Authorized [id number] Closed 05/17/2020 05/17/2022 12 12 Reason for Visit Outpatient (Routine) - Closed Specialty Diagnoses / Procedures Referred By Contact Refer red To Contact Diagnoses Migraine Headache Chronic Preet Landeros M.D. [facility] Procedures Botox for Chronic Migraine [place] INJECTION,ONABOTULINUMTOXINA [place] CHEMODENERV FACIAL TRIGEM NATALIE Botox (Onabotulinumtoxina) J0585 150 units every 12 weeks [address] [place], [place] [address] Referral ID Status Reason Start Date Expiration Date Visits Requ ested Visits Authorized [id number] Closed 05/17/2020 05/17/2022 12 12 Encounter Details Date Type Department Care Team Description 01/31/2021 Hospital Encounter Department of Preet Landeros M.D. [address] [place] [phone] Migraine Headache Neurology in Jazmyn Gore M.D. [address] [place] [phone] Chronic [place], [place] [address] [place] [phone] Social History Tobacco Use Types Packs/Day Years [...] More than 4 times per year 06/02/2022 pentecostalism services? 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 [employer] VERIO strips Test blood glucose 8 720 [...] documented as of this encounter Procedure Notes Jazmyn Gore M.D. - 01/31/2021 3:45 PM CDTAssociated Order(s): Botox for Chronic Migraine Pre-Procedure Diagnose(s): Migraine Headache Chronic Post-Procedure Diagnose(s): Migraine Headache Chronic Botox for Chronic Migraine Date/Time: 01/31/2021 3:34 PM Performed by: Jazmyn Gore M.D. Authorized by: Preet Landeros M.D. Care team members present 1. Dominique Briseno M.D. PROCEDURE DETAILS Pre-procedure pain score: 7/10 Injection of: 100 Units onabotulinumtoxinA 100 unit 50 Units onabotulinumtoxinA 50 unit Needle gauge: 30 Needle length: 0.5 in Injection site details Printer'S Assistant / Procerus muscle(s): 5 units into the left patient scheduling manager muscle, 5 units into the right patient scheduling manager muscle and 5 units into the procerus [...] in between rounds). Headache days per month: 25 days Severe headache days per month: 8 days Wearing off phenomenon prior to this round of Botox: yes Duration: 2 weeks POST-PROCEDURE DETAILS: Procedure completed successfully: yes Complications: no apparent complications ADDENDUM: Played Everardo Murphy again for distraction (patient is a fan of classic incuBET music). documented in this encounter Plan of Treatment Upcoming Encounters Date Type Specialty Care Team Description 06/26/2022 Appointment Neurology Preet Landeros M.D . [address] [place] [phone] Bria Suh APRN, C.N.P., M.S.N. [address] [place] [phone] 07/25/2022 Appointment Radiology Preet Landeros M.D . [address] [place], [place] [phone] (Wo rk) documented as of this encounter Procedures Procedure Name Priority Date/Time Associated Comments Diagnosis [place] CHEMODENERV FACIAL Routine 01/31/2021 3:34 PM Migraine Head ache Results for this TRIGEM NATALIE CDT Chronic procedure are i n the results section. documented in this encounter Results [place] CHEMODENERV FACIAL TRIGEM NATALIE (01/31/2021 3:34 PM CDT) Narrative MMODAL - 01/31/2021 3:34 PM CDT Jazmyn Gore M.D. ? 01/31/2021 ??3:58 PM Botox for Chronic Migraine Date/Time: 01/31/2021 3:34 PM Performed by: Jazmyn Gore M.D. Authorized by: Preet Landeros M.D. Care team members present 1. Dominique Briseno M.D. PROCEDURE DETAILS ?? Pre-procedure pain score: 7/10 Injection of: 100 Units onabotulinumtoxi nA 100 unit 50 Units onabotulinumtoxinA 50 unit Needle gauge: 30 Needle length: 0.5 in Injection site details Printer'S Assistant / Procerus muscle(s): 5 units into the left patient scheduling manager muscle, 5 units into the right patient scheduling manager muscle and 5 units into the procerus [...] in between rounds). Headache days per month: 25 days Severe headache days per month: 8 days Wearing off phenomenon prior to this rou nd of Botox: yes Duration: 2 weeks POST-PROCEDURE DETAILS: Procedure completed successfully: yes [...] Dose Rate Site onabotulinumtoxinA injection 100 Given 01/31/2021 3:34 PM 100 Un its Units (BOTOX) CDT 100 Units, injection, One-Time Injection, Starting on Fri01/31/21 at 1534, For 1 dose onabotulinumtoxinA injection 50 Units Given 01/31/2021 3:34 PM C DT 50 Units (BOTOX COSMETIC) 50 Units, injection, One-Time Injection, Starting on Fri01/31/21 at 1534, For 1 dose documented in this encounter Additional Health Concerns Assessment Noted Time PHQ-9 Depression Total Score: 13 01/31/2021 1:51 PM CD T documented as of this encounter Care Teams Manager It Security Relationship Specialty Start Date End Date Elsewhere, Pcp PCP - General Family Medicine 08/11/19 documented as of this encounter
--- OUTSIDE RECORDS SUMMARY | 2022-06-23 22:41 | XMS_ITS | Encounter Summary ---
:1970 [address] Organization [facility] Address [address] [place] [address] Care Team Providers Name Role Phone Elsewhere, Pcp Primary Care Provider Unavailable Reason for Referral Behavioral Health (Routine) - Closed Specialty Diagnoses / Procedures Referred By Contact Refer red To Contact Psychiatry / Diagnoses Morbid Obesity Body Mass Index 50.0-59.9 Adult (HCC) Diabetes Mellitus Type 2 Hyperglycemia (HCC) Christiana Alvarez, [facility] Psychiatry and BRET, C.N.P., Psychology M.S.N. [address] [place] [phone] Referral ID Status Reason Start Date Expiration Date Visits Requ ested Visits Authorized [id number] Closed 08/03/2020 08/03/2021 1 1 Scheduling Instructions Video OK utpatient (Routine) - Closed Specialty Diagnoses / Procedures Referred By Contact Refer red To Contact Endocrinology Diagnoses Morbid Obesity Body Mass Index 50.0-59.9 Adult (HCC) Diabetes Mellitus Type 2 Hyperglycemia (HCC) Christiana Alvarez [facility] BRET C.N.P., M.S.N. [address] [place] [phone] Referral ID Status Reason Start Date Expiration Date Visits Requ ested Visits Authorized [id number] Closed 08/03/2020 08/03/2021 1 1 Scheduling Instructions Video OK utpatient (Routine) - Closed Specialty Diagnoses / Procedures Referred By Contact Refer red To Contact Nutrition Diagnoses Morbid Obesity Body Mass Index 50.0-59.9 Adult (HCC) Diabetes Mellitus Type 2 Hyperglycemia (HCC) [facility] C[facility]Jarett, M.S.N. [address] [place] [phone] Referral ID Status Reason Start Date Expiration Date Visits Requ ested Visits Authorized [id number] Closed 08/03/2020 08/03/2021 1 1 Scheduling Instructions OK with Video HIATRY INSTRUCTOR Reason for Visit Outpatient (Routine) - Closed Specialty Diagnoses / Procedures Referred By Contact Refer red To Contact General Surgery Diagnoses Diabetes Mellitus Type 2 Hyperglycemia (HCC) Reg Quick M.D. [facility] [address] [place] [phone] Referral ID Status Reason Start Date Expiration Date Visits Requ ested Visits Authorized [id number] Closed 06/22/2020 06/22/2021 1 1 Encounter Details Date Type Department Care Team Description 08/03/2020 Telemedicine Division of Breast, Christiana Alvarez Morb id Obesity Body Mass Index 50.0-59.9 Adult (HCC) (Primary Dx); Endocrine, Metabolic, EBRET C.N.PBon, Di abetes Mellitus Type 2 Hyperglycemia (HCC); and Gastrointestinal M.S.N. Apnea Sleep Obstructive; Surgery in [address] Hypertension Essential Primary; [place], [place] Hyperlipidemia Mixed; [address] [place], [place] [phone] Migraine Headache; [address] [address] Pain Joint; Carcinoma Renal Cell Left (HCC) Social History Tobacco Use Types Packs/Day Years [...] or relatives? How often do you attend episcopal or More than 4 times per year 06/02/2022 alevism services? Do you belong to any clubs or Yes 06/02/2022 organizations such as episcopal groups, unions, fraternal or athletic groups, or [...] - Inhaled Oxygen Concentration - - Weight 147 kg (324 lb 1.2 oz) 08/03/2020 1:12 PM PSYCHIATRY INSTRUCTOR Height - - Body Mass Index 54.13 06/22/2020 1:13 PM CDT documented in this encounter Consult Notes Christiana Alvarez APRN, C.N.P., M.S.N. - 08/03/2020 1:00 PM CST SUBJECTIVE REASON FOR CONSULT Paul Murphy is a 50 y.o. male who presents for evaluation of obesity, considering bariatric surgery. BMI estimated to be 54 via video visit today. He was referred by Reg Quick M.D. Consult conducted via real-time audio/video technology by Christiana Alvarez APRN, C.N.P., M.S.N. in [facility] to the patient in patients car. HISTORY OF PRESENT ILLNESS Mr. Murphy has a long history of medically complicated obesity and recidivism to attempts at weight loss through diet and exercise. Despite his attempts he weighs (!) 147 kg and he is 164.8 cm tall hisbody mass index is 54.13 kg/m??. He last saw Dr. Velez on September 22, 2018. At that time he had met all of his insurance requirements however decided not to proceed with surgery as his mother was hesitant and concerned about him movingforward. He carries the weight-related comorbidities of diabetes, obstructive sleep apnea, essential hypertension, hyperlipidemia, migraine headaches and joint pain. He also has a history of left renal cell cancer. He had a 3-cm left upper pole renal mass on evaluation for hematuria. Patient underwent biopsy and ablation. 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 He follows up with urology for surveillance CT scans. Last CT scan completed September of 2018. In terms of diabetes, he continues to have significant hypoglycemic events. His most recent hypoglycemic event was earlier this week that brought him to the emergency department with a blood sugar lessthem 30. He and his are quite concerned about these episodes as they are very unpredictable. Additionally, he follows with neurology for migraine headaches. He was last evaluated by Neurology on 05/17/2020. They are ruling out Parkinson's disease. He was scheduled for neuro psychological testing however had to cancel that appointment following emergency visit the night before. He plans to call to have this rescheduled. Please see surgical history listed below. Operative note from 05/29/2011 indicates incisional herniarelated to previous midline incision with large incarcerated hernia. Operative note indicates partial omentectomy, NICKY, and repair of ventral incisional hernia with Tac Shield 12.5cm diameter (5x5 inche s). The patient's past surgical history includes Past Surgical History: Procedure Laterality Date ??? APPENDECTOMY N/A 10/30/1984 Appendectomy ??? APPENDECTOMY Sep 1983 ??? HERNIA REPAIR 2012? PRIMARY REPAIR OF INCISIONAL HERNIA N/A 05/29/2011 Repair initial incisional or ventral hernia; incarcerated or strangulated.. Please see prior notes from Endocrinology, Nutrition, and Psychology for further details on his weight and nutritional history to include prior attempts at weight loss, weight-related comorbidities, and weight loss records. Mr. Murphy has heartburn. This is managed by omeprazole 40 mg daily. He has rare breakthrough symptoms that he will treat with as needed Tums. He can relate these breakthrough symptoms to poor diet. Hedenies any history of ulcers and hiatal hernia. He has not had an EGD, upper GI, or colonoscopy in the past. He describes his bowel movements as normal. He uses tobacco occasionally- specifically mini cigars 1-2 times per month. He uses minimal alcohol. Denies illicit drugs, carbonated beverages. He drinks 3 caffeinated beverages per day. He notes intermittent use of NSAIDS. He states if he needed toavoid NSAIDs for the rest of his life, he would be able to do so. He denies taking any steroids or immunomodulators. He does take a baby aspirin for preventative purposes. He denies a prior history of bleeding or clotting disorders, or problems with anesthesia in the past. The following portions of the patient's history were reviewed and updated as appropriate: allergies,current medications, family history, medical history, social history, surgical history and problem list. OBJECTIVE PHYSICAL EXAM General appearance: alert, oriented, and no acute distress. Abdomen: deferred to video visit Resp:: non labored breathing ASSESSMENT / PLAN #1 Morbid Obesity Body Mass Index 50.0-59.9 Adult (HCC) #2 Diabetes Mellitus Type 2 Hyperglycemia (HCC) #3 Apnea Sleep Obstructive #4 Hypertension Essential Primary #5 Hyperlipidemia Mixed #6 Migraine Headache #7 Pain Joint #8 Carcinoma Renal Cell Left (HCC) Mr. Murphy appears to be a good candidate for bariatric surgery. He has a number of obesity-related comorbidities that will improve with surgical weight loss. The various procedures were presented to him, and he is unsure at this time which bariatric surgery he would like to proceed with. As noted above, the patient last saw Dr. Velez on September 22, 2018. At that time he had met all of his insurance requirements however decided not to proceed with surgery as his mother was hesitant and concerned about him moving forward. The following will need to be completed prior to proceeding with bariatric surgery: 1. Further evaluation is needed with Neurology to rule out Parkinson's disease. He last met with Neurology on 05/17/2020. They recommended neuro psychological testing however the patient was unable to make that appointment today due to a recent ER visit with significant hypoglycemia. 2. The patient has had multiple episodes of hypoglycemia, most recently with a blood sugar less than30 which required an emergency visit in [place], [place]. I have encouraged the patient to reach out to his clerical specialist here at [facility] for further evaluation prior to proceeding with surgery. 3. He is due for colonoscopy versus colo guard. This should be completed and within normal limits before proceeding. 4. He will need return visits with bariatric endocrinology, nutrition and psychology as his last benefit check was completed on 07/01/2018, per Leana murrell of our bariatric nurse coordinators. 5. Repeat insurance benefit check to be completed by endocrinology alumnae secretary all staff to ensure allpatient insurance requirements have been met prior to moving ahead with surgery. After the above has been completed, we can then decide on the best bariatric surgery moving forward.Given his history of gastroesophageal reflux, I discussed at length the Johnathan-en-Y gastric bypass however we can further discuss following above workup. I will not request prior written authorization for bariatric surgery until the above has been completed. Indication is obesity. Once prior written authorization has been obtained, Mr. Murphy will return for consultation with our bariatric surgeon, and will proceed to the Preoperative Clinic as indicated, and consult with the dietitian to review the immediate postoperative diet. I have discussed the risks and benefits of surgical intervention to include the potential for bleeding, infection, anastomotic leaks, deep vein thrombosis with potential for pulmonary emboli, and . I have also discussedthe short- and long-term complications as delineated in the Bariatric Surgery pamphlet (OE1647). I have provided a copy of Medications Following Johnathan-en-Y Bariatric Surgery (OM0798) to review the supplements which are recommended postoperatively. Mr. Murphy has a copy of both pamphlets. I reviewed that nonsteroidal anti-inflammatories, Stanton inhibitors, and aspirin and aspirin-containingproducts would be contraindicated for the remainder of his lifetime following a Johnathan-en-Y gastric bypass. I reviewed the need for lifetime complete multivitamin, vitamin D, vitamin B12, and calcium supplements postoperatively. Also reviewed that weight trend must be stable or trending downward in the preoperative period, or surgery could be postponed. Risk, benefits and alternatives were discussed with the Mr. Murphy. He appears to understand, askingappropriate questions, and wishes to proceed. Today, I personally spent 60 minutes with the patient, of which greater than 50% of the time was spent in patient education, counseling, and coordination of care as described above. HIATRY INSTRUCTOR documented in this encounter Plan of Treatment Upcoming Encounters Date Type Specialty Care Team Description 06/26/2022 Appointment Neurology Preet Landeros M.D . [address] [place] [phone] Bria Suh APRN, C.N.P., M.S.N. [address] [place] [phone] 07/25/2022 Appointment Radiology Preet Landeros M.D . [address] [place] [phone] (Wo rk) Scheduled Referrals Name Type Priority Associated Diagnoses Order S chedule Nutrition - Outpatient Routine Morbid Obesity Body Expected : Bariatrics medical Referral Mass Index 50.0-59.9 1 10/03/2019 nutrition therapy Adult ([facility]) (Approximate), consult (clinic) Diabetes Mellitus s: Type 2 Hyperglycemia 023 ([facility]) Endocrinology - Outpatient Routine Morbid Obesity Body Expec shay: Bariatric consult Referral Mass Index 50.0-59.9 (clinic) Adult ([facility]) (Approximate), Diabetes Mellitus Expires: Type 2 Hyperglycemia 023 ([facility]) Psychiatry and Outpatient Routine Morbid Obesity Body Expect ed: Psychology - Referral Mass Index 50.0-59.9 020 Bariatric consult Adult ([facility]) (Approximate), (clinic) Diabetes Mellitus Expires: Type 2 Hyperglycemia 023 ([facility]) documented as of this encounter Visit Diagnoses Diagnosis Morbid Obesity Body Mass Index 50.0-59.9 Adult ([facility]) - Primary Diabetes Mellitus Type 2 Hyperglycemia ( [facility]) Apnea Sleep Obstructive Hypertension Essential Primary Hyperlipidemia Mixed Migraine Headache Pain Joint Carcinoma Renal Cell Left ([facility]) documented in this encounter Additional Health Concerns Assessment Noted Time PHQ-9 Depression Total Score: 16 05/17/2020 1:26 PM CD T documented as of this encounter Care Teams Lunch Counter Manager Relationship Specialty Start Date End Date Elsewhere, Pcp PCP - General Family Medicine 08/11/19 documented as of this encounter
--- OUTSIDE RECORDS SUMMARY | 2022-06-23 22:41 | XMS_ITS | Encounter Summary ---
:[address] [facility] Address [address] [place] [address] Care Team Providers Name Role Phone Elsewhere, Pcp Primary Care Provider Unavailable Reason for Visit Reason Comments Weight Management Outpatient (Routine) - Closed Specialty Diagnoses / Procedures Referred By Contact Refer red To Contact Endocrinology Diagnoses Morbid Obesity Body Mass Index 50.0-59.9 Adult (HCC) Diabetes Mellitus Type 2 Hyperglycemia (HCC) [facility] B[facility], Roshan, M.S.N. [address] [place] [address] Referral ID Status Reason Start Date Expiration Date Visits Requ ested Visits Authorized [id number] Closed 08/03/2020 08/03/2021 1 1 Encounter Details Date Type Department Care Team Description 09/20/2020 Comprehensive Visit Division of Marjan Acosta Morbid O besity Body Mass Index 50.0-59.9 Adult (HCC); Endocrinology in M.B., Ch.B. Diabetes Mellitus Type 2 Hyperglycemia ( HCC) [place], [place] [address] [facility], [address] [place] [phone] Social History Tobacco Use Types Packs/Day [...] - - Weight 145 kg (319 lb 7.1 oz) 09/20/2020 2:19 PM SENIOR NETWORK SECURITY ARCHITECT Height 164.5 cm (5' 4.76) 09/20/2020 2:19 PM SENIOR NETWORK SECURITY ARCHITECT Body Mass Index 53.55 09/20/2020 2:19 PM SENIOR NETWORK SECURITY ARCHITECT documented in this encounter Consult Notes Marjan Acosta M.B., Ch.B. - 09/20/2020 2:[address] [facility] Endocrinology, Diabetes, and Nutrition New Consultation Date of Visit: 09/20/2020 Clinician: Jacque Ochoa, B. Chief Complaint: Weight Management History of Present Illness: Paul Murphy is a 50 y.o. male who presents for evaluation of Weight Management. He is accompanied by his . He is specifically interested in his candidacy for bariatric surgery. He completed the bariatric process in 2019 but did not undergo surgery because of concerns from his mother. In reviewing his progress during the behavioral modification program, he lost approximately 25 lb at that time. He has lost 6 lb in the last two months, based on our scale, by modifying his foodintake. He is deliberately watching his portion sizes and choices in general. He reports that baked goods are a weakness. He rarely drinks alcohol and does not drink carbonated beverages. He has had type 2 diabetes since age 30. He was assessed by my colleagues in the Diabetes Clinic a few months ago. About a week ago, he discontinued metformin because of abdominal pain and diarrhea severe enough, causing him to miss work for almost a month. Since discontinuing metformin, all GI symptoms have resolved. He is currently on 10 mg of empagliflozin, 25 units of Lantus at night, 12 to 15 units of NovoLog once or twice a day with meals and 1.8 mg of Liraglutide daily. He has a DexFaves G6 CGMin place and we reviewed those numbers. He is almost always within goal. He does report 6 to 8 episodes of severe hypoglycemia in the last 18 months, requiring theatrical variety agent assistance. The most recent episode was during the summertime. These episodes tend to occur between one and four in the morning. He does give himself prandial insulin with a bedtime snack if it is carbohydrate heavy. The patient is not particularly active. He cites difficulty with mobility as well as lack of time. 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 He smokes one cigar a week, usually to relieve stress. He has obstructive sleep apnea and last had his CPAP settings checked about a month ago. He has hypertension, gastroesophageal reflux and hypercholesterolemia. His surgical history includes incisional ventral hernia repair, and renal cell carcinoma status post cryoablation. There is some concern aboutParkinson's disease and he will be seeing my colleagues in Neurology this week for an assessment. The following portions of the patient's history were reviewed and updated as appropriate: allergies,current medications, family history, medical history, social history, surgical history and problem list. Past Medical History: Diagnosis Date ??? Asthma NOS ??? Diabetes Mellitus Type 2 (HCC) 11/08/2015 DM2 Uncontrolled ??? Diabetes Mellitus Type 2 Hyperglycemia (HCC) 11/08/2015 DM2 Uncontrolled ??? Gastroesophageal Reflux Disease NOS ??? Hyperlipidemia ??? Hypertension NOS ??? Malignant Neoplasm Of Kidney (HCC) 07/2015 ??? Psoriasis ??? Sleep Apnea ??? Transient Ischemic Attack Current Outpatient Medications Medication Sig Dispense Refill ??? aspirin 81 mg capsule Take 81 mg by mouth daily. ??? atorvastatin (LIPITOR) 40 mg tablet Take 1 tablet (40 mg total) by mouth at bedtime. 90 tablet 3 ??? Dexcom G6 Sensor device ??? Dexcom G6 Transmitter device ??? DME CPAP DME Order 1 Device 0 ??? empagliflozin (JARDIANCE) 25 mg tablet Take 1 tablet (25 mg total) by mouth every morning beforebreakfast. 90 tablet 0 ??? ferrous sulfate 325 mg (65 mg iron) tablet Take 65 mg of iron by mouth daily. with food ??? glucagon (Baqsimi) 3 mg/actuation spray,non-aerosol Administer 1 application into nostril(s) as needed (hypoglycemia). 2 each 3 ??? hydrocortisone-acetic acid (ACETASOL HC) 1-2 % otic solution INSTILL 4 DROPS IN BOTH EARS FOUR TIMES DAILY FOR 7 DAYS ??? insulin aspart U-100 (NovoLOG Flexpen U-100 Insulin) 100 unit/mL injection 18 units before each meal 3 times daily. 30 mL 5 ??? insulin glargine (Lantus Solostar U-100 Insulin) 100 unit/mL (3 mL) injection Inject 20 Units under the skin at bedtime. 15 mL 11 ??? ipratropium (ATROVENT) 0.03 % nasal spray Administer 2 sprays into each nostril 2 (two) times a day. ??? ketoconazole (NIZORAL) 2 % shampoo Apply 1 application topically 2 (two) times a week. ??? levocetirizine (XYZAL) 5 mg tablet Take 5 mg by mouth every evening. ??? liraglutide (Victoza 3-Brijesh) 0.6 mg/0.1 mL (18 mg/3 mL) injection Inject 1.8 mg under the skin daily. 27 mL 3 ??? miscellaneous medical supply misc CPAP supplies, Heated humidifier x 1, Humidifier chamber x 1, ??? multivitamin capsule daily. ??? naproxen (NAPROSYN) 500 mg tablet Take 500 mg by mouth 2 (two) times a day as needed. ??? nystatin (MYCOSTATIN) 100,000 unit/mL suspension SWISH AND SPIT 5 ML BY MOUTH FOUR TIMES DAILY ??? omeprazole (PriLOSEC) [address] capsule Take 60 mg by mouth daily. ??? ONETOUCH VERIO strips Test blood glucose 8 times per day 720 strip 3 ??? pen needle, diabetic (SURE-FINE PEN NEEDLES) 31 gauge x 5/16 needle 4 Injection daily. 100 each11 ??? propranoloL (INDERAL) 40 mg tablet Take 40 mg by mouth 2 (two) times a day. ??? sertraline (ZOLOFT) 100 mg tablet Take 100 mg by mouth daily. ??? Stimulant Laxative Plus 8.6-50 mg per tablet TK 2 TS PO BID ??? SUMAtriptan (IMITREX) 50 mg tablet Take 50 mg by mouth as needed. May repeat dose once in 2 hours if migraine unresolved. Do not exceed 200 mg in 24 hours. ??? valsartan (DIOVAN) 80 mg tablet TAKE 1 TABLET (80 MG TOTAL) BY MOUTH DAILY. 90 tablet 3 ??? metFORMIN (FORTAMET) 500 mg 24 hr tablet Take 1 tablet (500 mg total) by mouth 2 (two) times a day with meals. (Patient not taking: Reported on 09/20/2020 ) 60 tablet 11 Current Facility-Administered Medications Medication Dose Route Frequency Provider Last Rate Last Admin ??? glucagon injection 1 mg (GlucaGen) 1 mg intravenous Once Carmen Gallo M.B., B.Ch. Social History Tobacco Use ??? Smoking status: Current Some Day Smoker Types: Cigars ??? Smokeless tobacco: Never Used ??? Tobacco comment: An occasional cigar Substance Use Topics ??? Alcohol use: Yes Frequency: Monthly or less Drinks per session: 1 or 2 Binge frequency: Never Comment: Occasionally have a scotch Review of systems: 10 point ROS completed and negative unless noted above. Objective: Ht 164.5 cm Wt (!) 145 kg BMI 53.55 kg/m?? Vitals signs reviewed. Constitutional Appearance: He is well-developed. Abdominal Comments: Significant abdominal adiposity Neurological Mental Status: He is alert. Psychiatric Behavior: Behavior normal. Pertinent labs: Hemoglobin A1c 6.6% Assessment and Plan: #1 Morbid Obesity Body Mass Index 50.0-59.9 Adult (HCC) #2 Diabetes Mellitus Type 2 Hyperglycemia (HCC) Paul Murphy is a 50 y.o. male who presents for evaluation of Weight Management. We spoke about the gastric bypass and the sleeve gastrectomy, including weight loss expectations, risks, benefits, and long-term vitamin and mineral supplementation considerations. He understands that this is a tool that augments efforts at lifestyle change. He understands that the risk of weight recidivism is related to behavioral drift and lack of attention to exercise. He understands our recommendation to stop all nicotine containing products prior to and following surgery. I have made the following adjustments to his diabetes program: - Increase empagliflozin to 25 mg daily. - Decrease prandial insulin to once a day, with his largest meal. - counseled him to avoid covering bedtime snack with prandial insulin, as long as prevailing blood glucose at that time is less than 250 mg/dL. We will await assessment by my colleagues in Neurology. He understands that the diagnosis of Parkinson's disease will not remove the option of bariatric surgery, but may impact the timing of it. I will see him again once he is ready to see the surgeons. I have recommended the following orders: #1 Morbid Obesity Body Mass Index 50.0-59.9 Adult (HCC) #2 Diabetes Mellitus Type 2 Hyperglycemia (HCC) Other orders - empagliflozin (JARDIANCE) 25 mg tablet; Take 1 tablet (25 mg total) by mouth every morning before breakfast., Starting Fri09/20/2020, Normal - glucagon (Baqsimi) 3 mg/actuation spray,non-aerosol; Administer 1 application into nostril(s) as needed (hypoglycemia)., Starting Fri09/20/2020, Until [place] 09/20/2021, Normal The patient verbalized understanding of the plan. OR NETWORK SECURITY ARCHITECT documented in this encounter Plan of Treatment Upcoming Encounters Date Type Specialty Care Team Description 06/26/2022 Appointment Neurology Preet Landeros M.D . [address] [place] [phone] Bria Suh APRN, C.N.P., M.S.N. [address] [place] [phone] 07/25/2022 Appointment Radiology Preet Landeros M.D . [address] [place] [address] [phone] (Wo rk) documented as of this encounter Visit Diagnoses Diagnosis Morbid Obesity Body Mass Index 50.0-59.9 Adult (HCC) Diabetes Mellitus Type 2 Hyperglycemia ( HCC) documented in this encounter Additional Health Concerns Assessment Noted Time PHQ-9 Depression Total Score: 16 05/17/2020 1:26 PM CD T documented as of this encounter Care Teams [employer] Flatbed Driver Relationship Specialty Start Date End Date Elsewhere, Pcp PCP - General Family Medicine 08/11/19 documented as of this encounter
--- OUTSIDE RECORDS SUMMARY | 2022-06-23 22:42 | XMS_ITS | Encounter Summary ---
:[address] [facility] Address [address] [place] [address] Care Team Providers Name Role Phone Elsewhere, Pcp Primary Care Provider Unavailable Encounter Details Date Type Department Care Team Description 06/28/2020 Clinical Support Department of Reg Quick M.D. [address] [place] [phone] Diabetes Mellitus Type Nutrition in Adalberto Star SnowdenSBonN., R.N., [facility] [address] [place] [phone] 2 Hyperglycemia ([facility]) [place], [place] [address] [place] [address] Social History Tobacco Use Types Packs/Day Years [...] documented as of this encounter Progress Notes Feli Glover, RBonN., [facility] - 06/28/2020 10:00 AM CDT SUBJECTIVE CHIEF COMPLAINT/REASON FOR VISIT Diabetes Education Type of Visit: Treatment Change Referred by: Reg Quick M.D. HISTORY OF PRESENT ILLNESS OBJECTIVE Pertinent Labs: Lab Results Component Value Date HGBA1C 6.0 (H) 09/04/2018 HGBA1C 6.5 (H) 05/27/2018 ASSESSMENT / PLAN Medication Changes: No Patient Education Provided: Yes, patient education was provided, refer to the patients education record. Diagnosis Plan 1. 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 Diabetes history: Patient was diagnosed with type 2 diabetes 20 years ago at the age of 30. Current therapy: Metformin 500mg BID, Victoza 1.8mg daily, Jardiance 10mg daily, Lantus 0-0-0-25 andNovolog 18-18-18-0. Goal range: 100-140mg/dl Monitoring/blood sugar: Patient is currently using the Dexcom G6. Hypoglycemia: Patient has a history of severe hypoglycemia. Earlier this year patient's had to call associate professor of library science to assist with patient's blood sugars. She states she was able to give Glucagon but the associate professor of library science also gave dextrose. Patient was transported to the emergency room. Reviewed proper treatment of hypoglycemia including ways to avoid this. He was discouraged from giving Novolog at bedtime to prevent night time hypoglycemia. Nutrition: Patient was able to meet with Adriana Roy RDN today. Diabetes education: Reviewed principles of MDI program and dose adjustment. Discussed various ways to assist with weight loss as well as managing his diabetes. Greater than 50% of time spent in counseling/coordination of care. Contact information given for anyfuture questions or concerns. Time spent with patient (minutes): 60 Minutes documented in this encounter Plan of Treatment Upcoming Encounters Date Type Specialty Care Team Description 06/26/2022 Appointment Neurology Preet Landeros M.D . [address] [place] [phone] Bria Suh APRN, C.N.P., M.S.N. [address] [place] [phone] 07/25/2022 Appointment Radiology Preet Landeros M.D . [address] [place] [address] [phone] (Wo rk) documented as of this encounter Visit Diagnoses Diagnosis Diabetes Mellitus Type 2 Hyperglycemia ( HCC) documented in this encounter Additional Health Concerns Assessment Noted Time PHQ-9 Depression Total Score: 16 05/17/2020 1:26 PM CD T documented as of this encounter Care Teams Seasonal Recruiter Relationship Specialty Start Date End Date Elsewhere, Pcp PCP - General Family Medicine 08/11/19 documented as of this encounter
--- OUTSIDE RECORDS SUMMARY | 2022-06-23 22:42 | XMS_ITS | Encounter Summary ---
:1970 Author Organization [facility] Address [address] [place] [address] Care Team Providers Name Role Phone Amanda Barrios APRN, C.N.P. Primary Care Provider [phone] Reason for Visit Reason Comments Med Refill Encounter Details Date Type Department Care Team Description 10/20/2018 Refill Department of Family Medicine, Mayda Barrios APRN, Med Refill [facility] [address] [address] [place] [address] [phone] Social History Tobacco Use Types Packs/Day Years [...] More than 4 times per year 06/02/2022 temple services? Do you belong to any clubs [...] slept in a care home (including now)? Sex Assigned at Date Recorded Male 01/30/2018 9:28 AM CDT documented as of this encounter Miscellaneous Notes Telephone Encounter - Paris Rojas - 10/20/2018 10:10 AM CST [employer] calling requesting this be parked as high priority as patient has been out for a week. WELTER documented in this encounter Plan of Treatment Upcoming Encounters Date Type Specialty Care Team Description 06/26/2022 Appointment Neurology Preet Landeros M.D . [address] [place] [phone] Bria Suh APRN, C.N.P., M.S.N. [address] [place] [phone] 07/25/2022 Appointment Radiology Preet Landeros M.D . [address] [place] [address] [phone] (Wo rk) documented as of this encounter Visit Diagnoses Diagnosis Hypertension Essential Primary documented in this encounter Additional Health Concerns Assessment Noted Time PHQ-9 Depression Total Score: 4 03/23/2018 12:54 PM CD T documented as of this encounter Care Teams Ring Conductor Relationship Specialty Start Date End Date Amanda Barrios, BRET, C.N.P. PCP - General 05/30/18 08/10/19 [address], [place] [phone] documented as of this encounter
--- OUTSIDE RECORDS SUMMARY | 2022-06-23 22:42 | XMS_ITS | Encounter Summary ---
:1970 Author Organization [facility] Address [address] [place] [id number] Care Team Providers Name Role Phone Elsewhere, Pcp Primary Care Provider Unavailable Reason for Referral Specialty Diagnoses / Procedures Referred By Contact Refer red To Contact Reg Quick M.D. [facility] [address] [place] [phone] Referral ID Status Reason Start Date Expiration Date Visits Requ ested Visits Authorized utpatient (Routine) - Closed Specialty Diagnoses / Procedures Referred By Contact Refer red To Contact General Surgery Diagnoses Diabetes Mellitus Type 2 Hyperglycemia (HCC) Reg Quick M.D. [facility] [address] [place] [phone] Referral ID Status Reason Start Date Expiration Date Visits Requ ested Visits Authorized [id number] Closed 06/22/2020 06/22/2021 1 1 utpatient (Routine) - Closed Specialty Diagnoses / Procedures Referred By Contact Refer red To Contact Nutrition Diagnoses Diabetes Mellitus Type 2 Hyperglycemia (HCC) Reg Quick M.D. [address] [phone] Referral ID Status Reason Start Date Expiration Date Visits Requ ested Visits Authorized [id number] Closed 06/22/2020 06/22/2021 1 1 Reason for Visit Appointment Request (Routine) - Closed Specialty Diagnoses / Procedures Referred By Contact Refer red To Contact Endocrinology Diagnoses Diabetes Mellitus Type 2 (HCC) Diabetes Mellitus Type 2 Hypoglycemia Without Coma (HCC) Aaron Miranda M.D. [address] [place] [address] Referral ID Status Reason Start Date Expiration Date Visits Requ ested Visits Authorized [id number] Closed 06/08/2020 06/08/2021 1 1 Encounter Details Date Type Department Care Team Description 06/22/2020 Comprehensive Visit Division of Abdelrahman, Diabetes Mellitus Endocrinology in Reg, Type 2 Hype rglycemia [place], [place] (HCC) (Primary Dx) [address] [facility] [address] [facility] [id number] [facility] [phone] Social History Tobacco Use Types Packs/Day Years [...] More than 4 times per year 06/02/2022 islam services? Do you belong to any clubs [...] Sign Reading Time Taken Comments Blood Pressure 101/51 06/22/2020 1:13 PM CDT Pulse 60 06/22/2020 1:13 PM CDT Temperature - - Respiratory Rate - - Oxygen Saturation - - Inhaled Oxygen Concentration - - Weight 149 kg (329 lb 2.4 oz) 06/22/2020 1:13 PM CDT Height 164.8 cm (5' 4.88) 06/22/2020 1:13 PM CDT Body Mass Index 54.97 06/22/2020 1:13 PM CDT documented in this encounter Progress Notes Reg Quick M.D. - 06/22/2020 1:30 PM CDT [facility] Endocrinology, Diabetes, Metabolism and Nutrition Metabolic Clinic Date of Visit: 06/22/2020 Supervising information systems consultant: Lizzette JORGE Chief Complaint: Diabetic f/u History of Present Illness Paul Murphy is a 50 y.o. male who presents for evaluation of diabetes 2 f/u and hypoglycemicepisodes. DIABETES HISTORY - Type:2 - Current regimen:Lantus 25U; Novolog SSI; Liraglutide 1.8mg qd, metformin 1g qAM - Glucose checks: Dexcom. Fasting glucose 100-150s. - Hypoglycemia: several hypoglycemic episodes w/ blood sugars down in the 40- 50s, usually between 11pm-2am. During these events, pt feels weak, finds it difficult to find words, tends to slur more, andat times is diaphoretic. Also reports some memory problems for which he is seeing Neurologist for (Dr. Landeros). - Diabetes Control history: previously tried to go up on his metformin, but was unable to due to diarrhea - Diet: eat out 3 times a week. Typical meat: <1/4 vegetables, 1/3 - 1/2 meat (red meat, pork, chicken, fish), 1/3 carbs (does not actively avoid white rice/pasta/breads) - Exercise: Rarely exercises; at most 1-2 times of walking/week. Does endorse his job in the [employer] entails being on his feet for most of the day - Weight history: 149 kg today <-148kg (2018). Did lose 14kg in 2018 when he living with his mother. DIABETES COMPLICATIONS - Macrovascular: no h/o of stroke or RI - Microvascular: last optho exam in 2018 showed no diabetic retinopathy. No neuropathy. Was considering bariatric surgery in 2019, but was scared off by his mother. Is on the fence aboutgetting bariatric surgery now. COMORBIDITIES - Hypertension:on valsartan 80mg, propanolol 40bid BP Readings from Last 1 Encounters: 06/22/20 (!) 101/51 - Depression: on sertraline BMI Readings from Last 1 Encounters: 06/22/20 54.97 kg/m?? - TYSON: on CPAP - Hyperlipidemia: on atorvastatin 40. Lab Results Component Value Date HGBA1C 6.0 (H) 09/04/2018 CREATININE 1.03 09/22/2018 ALBCREARATIO <14 05/27/2018 CHOL 134 05/27/2018 TRIG 139 05/27/2018 HDL 41 05/27/2018 LDLCALC 65 05/27/2018 TSH 0.338 (A) 12/17/2017 ALT 25 09/22/2018 The following portions of the patient's history were also reviewed and updated as appropriate: current medications, medical history, social history, surgical history and problem list. Current Outpatient Medications Medication Sig Dispense Refill ??? aspirin 81 mg capsule Take 81 mg by mouth daily. ??? atorvastatin (LIPITOR) 40 mg tablet Take 1 tablet (40 mg total) by mouth at bedtime. 90 tablet 3 ??? Dexcom G6 Sensor device ??? Dexcom G6 Transmitter device ??? ferrous sulfate 324 mg (65 mg iron) DR tablet Take 65 mg of iron by mouth daily. ??? insulin aspart U-100 (NovoLOG Flexpen U-100 Insulin) 100 unit/mL injection 18 units before each meal 3 times daily. 30 mL 5 ??? insulin glargine (BASAGLAR KWIKPEN U-100 INSULIN) 100 unit/mL (3 mL) injection Inject 0.3 mL (30Units total) under the skin at bedtime. (Patient taking differently: Inject 33 Units under the skin at bedtime. ) 15 mL 2 ??? ipratropium (ATROVENT) 0.03 % nasal spray [...] 27 mL 3 ??? miscellaneous medical supply [facility] CPAP supplies, Heated humidifier x 1, Humidifier chamber x 1, ??? naproxen (NAPROSYN) 500 mg tablet Take 500 mg by mouth 2 (two) times a day as needed. ??? omeprazole (for_PriLOSEC) 20 mg capsule Take 20 mg by mouth every morning before breakfast. ??? ONETOUCH VERIO strips Test blood glucose 8 times per day 720 strip 3 ??? pen needle, diabetic (SURE-FINE PEN NEEDLES) 31 gauge x 5/16 needle 4 Injection daily. 100 each11 ??? propranoloL (INDERAL) 60 mg tablet Take 40 mg by mouth 2 (two) times a day. ??? sertraline (ZOLOFT) 100 mg tablet Take 100 mg by mouth daily. ??? SUMAtriptan (IMITREX) 50 mg tablet Take 50 mg by mouth as needed. May repeat dose once in 2 hours if migraine unresolved. Do not exceed 200 mg in 24 hours. ??? valsartan (DIOVAN) 80 mg tablet TAKE 1 TABLET (80 MG TOTAL) BY MOUTH DAILY. 90 tablet 3 ??? metFORMIN XR (GLUCOPHAGE-XR) 500 mg 24 hr tablet Take 4 tablets (2,000 mg total) by mouth daily.(Patient taking differently: Take 500 mg by mouth daily. Increase to 2000 total ) 360 tablet 3 ??? multivitamin capsule daily. Current Facility-Administered Medications Medication Dose Route Frequency Provider Last Rate Last Dose ??? glucagon injection 1 mg (GlucaGen) 1 mg intravenous Once Carmen Gallo M.B., B.. Social History Tobacco Use ??? Smoking status: Current Some Day Smoker Types: Cigars ??? Smokeless tobacco: Never Used ??? Tobacco comment: An occasional cigar Substance Use Topics ??? Alcohol use: Yes Frequency: Monthly or less Drinks per session: 1 or 2 Binge frequency: Never Comment: Occasionally have a scotch Past Medical History: Diagnosis Date ??? Asthma NOS ??? Diabetes Mellitus Type 2 (HCC) 11/08/2015 DM2 Uncontrolled ??? Diabetes Mellitus Type 2 Hyperglycemia (HCC) 11/08/2015 DM2 Uncontrolled ??? Gastroesophageal Reflux Disease NOS ??? Hyperlipidemia ??? Hypertension NOS ??? Malignant Neoplasm Of Kidney (HCC) 07/2015 ??? Psoriasis ??? Sleep Apnea ??? Transient Ischemic Attack Past Surgical History: Procedure Laterality Date ??? APPENDECTOMY N/A 10/30/1984 Appendectomy ??? APPENDECTOMY Sep 1983 ??? HERNIA REPAIR 2012? PRIMARY REPAIR OF INCISIONAL HERNIA N/A 05/29/2011 Repair initial incisional or ventral hernia; incarcerated or strangulated.. Physical Examination PHYSICAL EXAM BP (!) 101/51 (BP Location: Left arm, Patient Position: Sitting, Cuff Size: Large) Pulse 60 Ht 164.8 cm Wt (!) 149 kg BMI 54.97 kg/m?? Gen: well appearing, well-nourished male sitting in exam chair in no acute distress HEENT: Eyes have no icterus or injection; moist mucous membranes Lungs: no cough; breathing non-labored CV: warm and well-perfused extremities Abd: soft, obese PSYCH: Mood and affect congruent. Well-dressed and well-groomed. Thought content and processes within normal limits NEURO: Alert and oriented. CN II-XII grossly intact. Moves all ext spontaneously. Speech: slow and w/ mild slurring Impression/Report/Plan I reviewed the available laboratory, radiographic and other test findings pertinent to this visit and discussed these results with the patient. I discussed the following treatment plan with the patient: #1 Diabetes Mellitus Type 2 Hyperglycemia (HCC) Pt presenting for diabetes 2 and hypoglycemic episodes. Hemoglobin A1c 6.5. He does report these episodes that that might be correlated to low blood sugars. He also has at high risk of morbidity and mortality with his BMI of 55. At this time we will reduce his Lantus 25 units to 20 units, add on empagliflozin 10mg, and change his metformin 24XR from 1000mg qd to 500 mg bid w/ meals. The goal would radha eventually increase his metformin dose to 1000mg bid, increase his empagliflozin to 25mg, and to decrease his basal insulin as appropriate, in order to help w/ weight loss and reduce hypoglycemic events. Will order a Hgba1c in 3 months. Patient also recommended to increase vegetables, decrease coffee with syrup, and decrease red meat intake. Pt also referred to table games floor supervisor and community educator (to refresh how to adjust his meal insulin doses). Pt interested in continuing his plans for bariatric surgery that were paused in 2019. We will refer him to our bariatric surgery colleagues. Brianna Quick M.D. documented in this encounter H&P Notes Ana Crocker M.D., Ph.D. - 06/22/2020 1:30 PM CDT This is a supervisory note I reviewed this 50-year-old gentleman with the doctor Abdelrahman. He is currently on multiple daily injection of insulin with the 1000 mg metformin daily and Victoza 1.8 mg daily.He seems to get the frequent hypoglycemia with some of them causing cognitive changes. With his current BMI he is likely to be highly insulin resistant and continuing the current regime only progressively increase his insulin requirement. Periodic hypoglycemia he will find it difficult to follow a diet that can result in weight loss. In fatty can cause weight gain. We discussed with the patient and decided to add Jardiance 10 mg a day and if he tolerates it increase the dose to 25 mg daily. We explained the adverse effects including more frequency of micturition and the need to take reasonable amount of water to replace the water loss. Since he has no prostate problem I do not think there is any other concern. In case he tolerates the high dose of diet he ends we could gradually and progressively reduce his insulin dose. He developed the diarrhea when he try to increase the metformin dose. For the time being we asked him to split the metformin dose to 500 mg 2 times a day and we discontinued metformin XR because of nitrosodimethylamine in the preparation has been reported to cause cancer of the animal studies. Instead we prescribed him met metformin XL. In addition we also discussed about the possibility of bariatric surgery. In his age and with his current situation based on excellent the results of bariatric surgery in almost normalizing Glucose Level without the any medication in type 2 diabetes he should consider bariatric surgery seriously. We will arrange an appointment with the our colleagues in bariatric group and he can along with his me them and decide about that possibility. documented in this encounter Plan of Treatment Upcoming Encounters Date Type Specialty Care Team Description 06/26/2022 Appointment Neurology Preet Landeros M.D . [address] [place] [phone] Bria Suh APRN, C.N.P., M.S.N. [address] [place] [phone] 07/25/2022 Appointment Radiology Preet Landeros M.D . [address] [place] [phone] (Wo rk) Scheduled Orders Name Type Priority Associated Diagnoses Order S chedule Hemoglobin A1c Lab Routine Diabetes Mellitus Type 2 E xpected: 09/22/2020 Hyperglycemia (HCC) (Approxi mate), Expires: 06/22/2023 Scheduled Referrals Name Type Priority Associated Diagnoses Order S chedule Nutrition - Outpatient Referral Routine Diabetes Mellitus Typ e Expected: Diabetes dietitian 2 Hyperglycemia (HCC) 06/22/2020 medical nutrition (Approxima te), therapy consult Expires: (clinic) 06/22/2023 General Surgery - Outpatient Referral Routine Diabetes Mellitu s Type Expected: Bariatric consult 2 Hyperglycemia (HCC) 1 (clinic) (Approximate), Expires: 06/22/2023 Nutrition - Outpatient Referral Routine Diabetes Mellitus Typ e Expected: community nutrition educator 2 Hyperglycemia (HCC) 1 visit (clinic) (Approximate) , Expires: 06/22/2021 documented as of this encounter Visit Diagnoses Diagnosis Diabetes Mellitus Type 2 Hyperglycemia ( HCC) - Primary documented in this encounter Additional Health Concerns Assessment Noted Time PHQ-9 Depression Total Score: 16 05/17/2020 1:26 PM CD T documented as of this encounter Care Teams Health And Human Performance Professor Relationship Specialty Start Date End Date Elsewhere, Pcp PCP - General Family Medicine 08/11/19 documented as of this encounter
--- OUTSIDE RECORDS SUMMARY | 2022-06-23 22:42 | XMS_ITS | Encounter Summary ---
:1970 Author Organization [facility] Address [address] [place] [address] Care Team Providers Name Role Phone Elsewhere, Pcp Primary Care Provider Unavailable Reason for Referral Outpatient (Routine) - Closed Specialty Diagnoses / Procedures Referred By Contact Refer red To Contact Neurology Preet Landeros M.D. [facility] [address] [place], [place] [phone] Referral ID Status Reason Start Date Expiration Date Visits Requ ested Visits Authorized [id number] Closed 05/17/2020 05/17/2021 1 1 Scheduling Instructions Coordinate with 3rd Migraine Botox utpatient (Routine) - Closed Specialty Diagnoses / Procedures Referred By Contact Refer red To Contact Diagnoses Migraine Headache Chronic Preet Landeros M.D. [facility] Procedures Botox for Chronic Migraine SC INJECTION,ONABOTULINUMTOXINA SC CHEMODENERV FACIAL TRIGEM NATALIE Botox (Onabotulinumtoxina) [id number] 150 units every 12 weeks [address] [place], [place] [phone] Referral ID Status Reason Start Date Expiration Date Visits Requ ested Visits Authorized [id number] Closed 05/17/2020 05/17/2022 12 12 ehavioral Health (Routine) - Closed Specialty Diagnoses / Procedures Referred By Contact Refer red To Contact Psychology / Diagnoses Cognitive Disorder Preet Landeros M.D. [facility] Psychiatry and Procedures PSY Neuropsychology testing [address] [facility] [place] [address] Referral ID Status Reason Start Date Expiration Date Visits Requ ested Visits Authorized [id number] Closed 05/17/2020 05/17/2021 1 1 utpatient (Routine) - Closed Specialty Diagnoses / Procedures Referred By Contact Refer red To Contact Sleep Medicine Diagnoses Snoring Apnea Sleep Obstructive Preet Landeros M.D. [facility] [address] [place] [address] Referral ID Status Reason Start Date Expiration Date Visits V isits Requested Authorized [id number] Closed Specialty 05/17/2020 05/17/2021 1 1 Services Required Reason for Visit Appointment Request (Routine) - Incomplete Specialty Diagnoses / Procedures Referred By Contact Refer red To Contact Neurology Diagnoses Migraine Headache Complaint Memory Aaron Miranda M.D. [address] [place] [id number] Referral ID Status Reason Start Date Expiration Date Visits V isits Requested Authorized [id number] Incomplete 09/13/2019 09/12/2020 1 Encounter Details Date Type Department Care Team Description 05/17/2020 Comprehensive Visit Department of Preet Landeros Cogniti ve Disorder (Primary Dx); Neurology in M.D. Migraine Headache Chronic; [place], [place] [address] [facility] Snoring; [address] [place], [place] Apnea [place] [phone] Social History Tobacco Use Types Packs/Day Years [...] place to sleep or slept in a long term (including now)? Education Answer Date Recorded What is the highest level of school Associate degree: anthony pretty, 05/17/2020 you have completed or the highest technical, or vocational p katie degree you have received? Sex Assigned at Date Recorded Male 01/30/2018 9:28 AM CDT documented as of this encounter Consult Notes Preet Landeros M.D. - 05/17/2020 2:30 PM CDT SUBJECTIVE Referring Provider: No ref. provider found CHIEF COMPLAINT / REASON FOR VISIT Paul Murphy is a 50 y.o. male who presents for evaluation of Headache, memory problems and word-finding difficulties. HISTORY OF PRESENT ILLNESS I did obtain collateral history from others in the office today. His was present today and provided input. He has a longstanding history of unprovoked headaches since he was 10 or 12 years old. There is family history of migraine in his mother and more the per family members on his maternal side. He has experienced a near daily headache, about 20 days per month in the last 2 years and they have been more severe in the last 3 or 4 years. Headaches can be precipitated by stress and they typically start while awake but can start while asleep. Headache onset is typically in the left frontal region and can stay mild or gradually get to be severe. When severe headaches can be throbbing and associated with nausea and sensitivity to light and sound but there is no vomiting. During some severe headaches he can see colors for about 10-15 minutes out of both eyes. Severe headaches can get worse with physical activity. Without treatment severe headaches will last up to a day and half. He currently denies any fever, Valsalva induced headache, double vision, transient visual obscurations or orthostatic headache. He does have sleep apnea but is not using CPAP because he does not tolerated. He currently uses Imitrex, naproxen, and Excedrin as needed with good results. He uses Excedrin about 1 or 2 days per week and Imitrex about 2-3 days per month. He just started propranolol 60 mg twice a day which may be has helped the headache a little bit. He, however, has a history of having hypoglycemic episodes without him being aware. In the past he tried ibuprofen and Botox once but the Botox was only apply to the for her per his report. Botox did not help. He is concerned about the fact that lately he has been having memory difficulties and word-finding problems. His father developed dementia in his late 70s and the patient is concerned about having an nervous system problem causing his cognitive difficulties. I have reviewed outside records for this visit. Per outside records he had brain MRI and MRA head and neck May 28, 2019 which showed no clear cause for headache. I have not directly reviewed imaging studies for this visit. There were no available neuro images for my review. The following portions of the patient's history were reviewed and updated as appropriate: allergies,current medications, family history, medical history, social history, surgical history and problem list. Ten point review of systems was completed and was negative other than as noted in the HPI. OBJECTIVE I have reviewed vital signs as recorded in the EPIC record. For details of the neurologic examination, please see the neurologic examination form. In summary: He is obese. He tends to fall asleep easily but his neurologic exam is otherwise normal. ASSESSMENT / PLAN #1 Chronic migraine with aura (visual) We discussed the distinction between primary and secondary headache disorders. The patient's currentheadaches are similar to those experienced in the past, today's neurologic exam is normal and previous neuroimaging has been normal. Based on this I currently do not recommend further investigations. My impression at present is the patient is experiencing chronic migraine with aura. I suggest the following treatment strategy. I recommend to discontinue Excedrin to minimize the risk of medication overuse headache. I also recommend to discontinue propranolol since I am concerned it could interfere with his awareness of hypoglycemia while using insulin, he will discuss this with his primary care provider to consider his/her approval of this recommendation. I think that are better alternative to propranolol for his migraine prophylaxis. For migraine prophylaxis I recommend starting Botox, giving it at least 3 tries with 12 weeks in between injections. In the past he tried Botox but not with a proper trial and only once which is not enough to assess for efficacy. If Botox would fail I would try Emgality next. I would like to avoid topiramate because of cognitive difficulties and definitely I would like to avoid Depakote, gabapentin and tricyclic antidepressants because of his significant obesity. He will follow with my headache [employer] colleagues here. For the acute treatment of mild to moderate headaches, I recommend to continue naproxen 500 mg orally twice a day as needed but this should not be used more than 14 days a month. For headaches that do not respond to this, or for severe headaches from onset, I recommend 50 mg of oral sumatriptan at onset and this can be repeated every 2 hours if needed (maximum 200 mg/24 hours) and this should not be used more than 9 days a month (2 days per week) to prevent medication overuse headache. He can consider an antiemetic as needed under the guidance of his local primary care provider if needed for migraine related nausea. #2 Outside diagnosed obstructive sleep apnea, untreated I think treating this might help his chronic daily headache syndrome and improve his cognitive function. He accepted my recommendation to be seen in the Sleep Clinic here. Maybe my colleagues in the Sleep Clinic have treatment options that he might tolerate better than the CPAP he has at home. #3 Cognitive difficulties I have asked him to send me his outside brain MRI for review Neuro Radiology. He also will get neuropsychological testing and routine blood work. I did explain, however, I suspect his untreated sleep apnea might be significantly contributing to his cognitive difficulties. Depending on the results of his evaluation he may or may not need to see behavioral neurology. PATIENT EDUCATION Ready to learn, no apparent learning barriers were identified; learning preferences include listening. Explained diagnosis and treatment plan; patient expressed understanding of the content. documented in this encounter Plan of Treatment Upcoming Encounters Date Type Specialty Care Team Description 06/26/2022 Appointment Neurology Preet Landeros M.D . [address] [place] [phone] Bria Suh APRN, C.N.P., M.S.N. [address] [place] [phone] 07/25/2022 Appointment Radiology Preet Landeros M.D . [address] [place] [phone] (Wo rk) Scheduled Orders Name Type Priority Associated Diagnoses Order S chedule Botox for Chronic Procedures Routine Migraine Headache - Vidya ry 12 weeks for 12 Migraine Chronic Occurrences sta rting 05/17/2020 unti l 05/17/2023, 8 c ompleted Scheduled Referrals Name Type Priority Associated Diagnoses Order S chedule Sleep Medicine - Outpatient Referral Routine Snoring Expected: General consult Apnea Sleep 05/17/2020 (clinic) Obstructive (Approximate), Expires: 05/17/2023 Neurology office Outpatient Referral Routine Expe cted: visit (clinic) 11/08/2020 (Approximate), Expires: 05/17/2023 documented as of this encounter Results SC CHEMODENERV FACIAL TRIGEM NATALIE (01/03/2022 10:13 AM [...] Needle length: 0.5 in Injection site details Animal Shelter Supervisor / Procerus muscle(s): [address] service locksmith muscle, [address] service locksmith muscle and 5 units into the procerus [...] fellow participated in the procedure, and the office 365 consultant was present for the entire procedure. Preet Landeros M.D. NEUROLOGY ORDERABLES Performing Organization Address City/State/ZIP Code Phon e Number MMODAL MMODAL NA SC CHEMODENERV FACIAL TRIGEM NATALIE (10/10/2021 1:06 PM GRAVEDIGGER) Narrative MMODAL - 10/10/2021 1:06 PM GRAVEDIGGER Gokul Boyd M.D. ? 10/10/2021 ??1:18 PM Botox for Chronic Migraine Date/Time: 10/10/2021 1:06 PM Performed by: Gokul Boyd M.D. Authorized by: Preet Landeros M.D. Care team members present 1. Clarice Alejandro L.P.N. PROCEDURE DETAILS ?? Pre-procedure pain score: 3/10 Injection of: 100 Units onabotulinumtoxi nA 100 unit 50 Units onabotulinumtoxinA 50 unit Needle gauge: 30 Needle length: 0.5 in Injection site details Animal Shelter Supervisor / Procerus muscle(s): [address] service locksmith muscle, [address] service locksmith muscle and 5 units into the procerus [...] of injections 150 units in 12 weeks. Authorizing Provider Result Paul Landeros M.D. NEUROLOGY ORDERABLES Performing Organization Address City/State/ZIP Code Phon e Number MMODAL MMODAL NA SC CHEMODENERV FACIAL TRIGEM NATALIE (07/18/2021 2:31 PM CDT) Narrative MMODAL - 07/18/2021 2:31 PM CDT Elizabeth Omalley, BRET, C.N.P., M.S.N. ? 07/18/2021 ??3:58 PM Botox for Chronic Migraine Date/Time: 07/18/2021 2:31 PM Performed by: Elizabeth Omalley APRN, C .NPietro, M.S.N. Authorized by: Preet Lnaderos M.D. Care team members present 1. Jimena Francois M.D. 3. Karen Foster L.P.N. PROCEDURE DETAILS ?? Pre-procedure pain score: 0/10 Injection of: 100 Units onabotulinumtoxi nA 100 unit 50 Units onabotulinumtoxinA 50 unit Needle gauge: 30 Needle length: 0.5 in Injection site details Animal Shelter Supervisor / Procerus muscle(s): [address] service locksmith muscle, [address] service locksmith muscle and 5 units into the procerus [...] of injections 150 units in 12 weeks. Authorizing Provider Result Paul Landeros M.D. NEUROLOGY ORDERABLES Performing Organization Address City/State/ZIP Code Phon e Number MMODAL MMODAL NA SC CHEMODENERV FACIAL TRIGEM NATALIE (04/25/2021 2:56 PM CDT) Narrative MMODAL - 04/25/2021 2:56 PM CDT Preet Landeros M.D. ? 04/25/2021 ??3:21 PM Botox for Chronic Migraine Date/Time: 04/25/2021 2:56 PM Performed by: Preet Landeros M.D. Authorized by: Preet Landeros M.D. Care team members present 1. Elsa Lane L.P.N. 2. Ilya Hoang M.D., M.S. PROCEDURE DETAILS ?? Pre-procedure pain score: 10/25 Injection of: 100 Units onabotulinumtoxi nA 100 unit 50 Units onabotulinumtoxinA 50 unit Needle gauge: 30 Needle length: 0.5 in Injection site details Animal Shelter Supervisor / Procerus muscle(s): [address] service locksmith muscle, [address] service locksmith muscle and 5 units into the procerus [...] Code Phon e Number MMODAL MMODAL NA SC CHEMODENERV FACIAL TRIGEM NATALIE (01/31/2021 3:34 PM [...] Needle length: 0.5 in Injection site details Animal Shelter Supervisor / Procerus muscle(s): [address] service locksmith muscle, [address] service locksmith muscle and 5 units into the procerus [...] Code Phon e Number MMODAL MMODAL NA SC CHEMODENERV FACIAL TRIGEM NATALIE (11/09/2020 9:15 AM GRAVEDIGGER) Narrative MMODAL - 11/09/2020 9:15 AM GRAVEDIGGER Gokul Boyd M.D. ? 11/09/2020 ??8:59 AM Botox for Chronic Migraine Date/Time: 11/09/2020 8:38 AM Performed by: Gokul Boyd M.D. Authorized by: Preet Landeros M.D. Care team members present 1. Clarice Alejandro, L.PBonNBon PROCEDURE DETAILS ?? Pre-procedure pain score: 3/10 Injection of: 100 Units onabotulinumtoxi nA 100 unit 50 Units onabotulinumtoxinA 50 unit Needle gauge: 30 Needle length: 0.5 in Injection site details Animal Shelter Supervisor / Procerus muscle(s): [address] service locksmith muscle, [address] service locksmith muscle and 5 units into the procerus [...] Code Phon e Number MMODAL MMODAL NA SC CHEMODENERV FACIAL TRIGEM NATALIE (08/16/2020 8:45 AM GRAVEDIGGER) Narrative MMODAL - 08/16/2020 8:45 AM GRAVEDIGGER Leandro James M.D. ? 08/16/2020 ??9:47 AM Botox for Chronic Migraine Date/Time: 08/16/2020 8:37 AM Performed by: Leandro James M.D. Authorized by: Preet Landeros M.D. PROCEDURE DETAILS ?? Pre-procedure pain score: 3/10 Injection of: 100 Units onabotulinumtoxi nA 100 unit 50 Units onabotulinumtoxinA (cosmetic) 50 unit Needle gauge: 30 Needle length: 0.5 in Injection site details Animal Shelter Supervisor / Procerus muscle(s): [address] service locksmith muscle, [address] service locksmith muscle and 5 units into the procerus [...] completed successfully: yes Complications: no apparent complications Authorizing Provider Result Paul Landeros M.D. NEUROLOGY ORDERABLES Performing Organization Address City/State/[facility] Code Phon e Number MMODAL MMODAL NA Thyroid Function [place] (07/05/2020 9:27 AM CDT) P athologist Signature TSH, Sensitive 0.6 0.3 - 4.2 07/05/2020 DTL mIU/L 10:32 AM CDT Specimen Anatomical Collection Method Collection Time Receive d Time (Source) Location / / Volume Laterality Blood (Blood, 07/05/2020 9:27 AM 07/05/20 20 Venous) CDT 10:07 AM CDT Authorizing Provider Result Paul Landeros M.D. LAB BLOOD ADD-ON Performing Organization Address City/State/ZIP Code Phon e Number [facility] - [address] [place], [place] [address] [facility] [place] [address] Laboratories-[facility] [place] [address] Pernicious Anemia [place] (07/05/2020 9:27 AM CDT) athologist Signature Vitamin B12 536 180 - 914 07/05/2020 [facility] Assay, S ng/L 3:56 PM CDT Specimen Anatomical Collection Method Collection Time Receive d Time (Source) Location / / Volume Laterality Blood (Blood, 07/05/2020 9:27 AM 07/05/20 20 2:10 Venous) CDT PM CDT Preet Landeros M.D. LAB BLOOD NON ADD-ON Performing Organization Address City/State/ZIP Code Phon e Number [facility] [address] [place], [place] [address] [facility] [place] [address] Laboratory Medicine and Pathology [address] [...] eGFR-Non 83 >=60 07/05/2020 DTL [place]/ mL/min/BSA 10:27 AM CDT Filipino Comment: ----ADDITIONAL INFORMATION---- Estimated GFR calculated using [...] Blood (Blood, 07/05/2020 9:27 AM 07/05/20 20 Venous) CDT 10:07 AM CDT Preet Landeros M.D. LAB BLOOD ADD-ON Performing Organization Address City/State/ZIP Code Phon e Number [facility] - [address] [place], [place] [address] [facility] [place] [address] [facility] [place] [address] [facility] (ABNORMAL) CBC with Differential, Blood (07/05/2020 9:27 AM CDT) [facility] gist Method Time Signature Hemoglobin 14.3 13.2 - [...] 07/05/20 20 9:58 Venous) CDT AM CDT Authorizing Provider Result Paul Landeros M.D. LAB BLOOD ADD-ON Performing Organization Address City/[facility]/ZIP Code Phon e Number [facility] - [address] [place] [address] [facility] [place] [address] [facility] [place] [address] Home Overnight Oximetry (07/05/2020) Specimen (Source) Anatomical Location Collection Method / Collectio n Time Received Time / Laterality Volume 07/05/2020 Narrative GAMA DIETRICH - 07/07/2020 6:53 AM CD T This result has an attachment that is no t available. See PDF report for results Procedure Note Nathan Vargas M.D. - 07/07/2020For matting of this note might be different from the original. See PDF report for results Authorizing Provider Result Paul Landeros M.D. PFT ORDERABLES Performing Organization Address City/[facility]/ZIP Code Phon e Number HOLLIS MORAIMA DIETRICH SC CHEMODENERV FACIAL TRIGEM NATALIE (05/25/2020 9:15 AM CDT) Narrative MMODAL - 05/25/2020 9:15 AM CDT Jazmyn Gore M.D. ? 05/25/2020 ??9:35 AM Botox for Chronic Migraine Date/Time: 05/25/2020 9:15 AM Performed by: Jazmyn Gore M.D. Authorized by: Preet Landeros M.D. PROCEDURE DETAILS ?? Pre-procedure pain score: 2/10 Injection of: 100 Units onabotulinumtoxi nA 100 unit 50 Units onabotulinumtoxinA (cosmetic) 50 unit Needle gauge: 30 Needle length: 0.5 in Injection site details Animal Shelter Supervisor / Procerus muscle(s): [address] service locksmith muscle, [address] service locksmith muscle and 5 units into the procerus [...] covered by a third libertarian. ?? Prior preventative medication trials: pr opranolol and gabapentin Headache frequency Headache days per month: 25 days Severe headache days per month: 12 days POST-PROCEDURE DETAILS: Procedure completed successfully: yes Complications: no apparent complications Preet Landeros M.D. NEUROLOGY ORDERABLES Performing Organization Address City/State/ZIP Code Phon e Number MMODAL MMODAL NA documented in this encounter Visit Diagnoses Diagnosis Cognitive Disorder - Primary Migraine Headache Chronic Snoring Apnea Sleep Obstructive Migraine Headache Chronic Snoring Apnea Sleep Obstructive Migraine Headache Chronic Migraine Headache Chronic Migraine Headache Chronic Migraine Headache Chronic Migraine Headache Chronic Migraine Headache Chronic Migraine Headache Chronic documented in this encounter Additional Health Concerns Assessment Noted Time PHQ-9 Depression Total Score: 16 05/17/2020 1:26 PM CD T documented as of this encounter Care Teams Director Of Women'S Services Relationship Specialty Start Date End Date Elsewhere, Pcp PCP - General Family Medicine 08/11/19 documented as of this encounter
--- OUTSIDE RECORDS SUMMARY | 2022-06-23 22:42 | XMS_ITS | Encounter Summary ---
:1970 Author Organization [facility] Address [address] [place] [address] Care Team Providers Name Role Phone Amanda Barrios APRN, C.N.P. Primary Care Provider [phone] Encounter Details Date Type Department Care Team Description 09/22/2018 Hospital Encounter Department of Vitor Velez Body Mass Index 50.0 To 59.9 Adult (HCC); Laboratory S, M.D. Hyperlipidemia Mixed; Medicine and [address] [place] [address] Diabetes Mellitus Type 2 Hyperglycemia ( HCC); Pathology, [place], [place] Hypertens ion Essential Primary; [place] [phone] Carcinoma Renal Cell Left (HCC) [facility] [phone] [place] (Work) [address] [place] [address] [place], [place] (Fax) [phone] Social History Tobacco Use Types Packs/Day [...] More than 4 times per year 06/02/2022 taoism services? Do you belong to any clubs [...] or slept in a chcf (including now)? Sex Assigned at Date Recorded Male 01/30/2018 9:28 AM CDT documented as of this encounter Medications at Time of Discharge Medication Sig Dispensed Refills Start Date End Date aspirin 81 mg capsule Take 81 mg by mouth 0 03/09 daily. atorvastatin (LIPITOR) Take 1 tablet (40 mg 90 tablet 3 07/2018 40 mg tabletIndications: total) by mouth at Hyperlipidemia Mixed bedtime. insulin aspart U-100 18 units before each 30 mL 5 07/19 (NovoLOG Flexpen U-100 meal 3 times daily. Insulin) 100 unit/mL injectionIndications: Diabetes Mellitus Type 2 Hyperglycemia (HCC), Residential Use Of Insulin Active (HCC) ONETOUCH VERIO strips Test blood glucose 8 720 strip 3 05/16 times per day ascorbic acid, vitamin Take 1 tablet by 0 016 05/17/2020 C, (vitamin C) 1,000 mg mouth daily. tablet calcium Take by mouth 2 0 03/25/2011 0 carbonate-vitamin D3 (two) times a day. (CALCIUM+D) 400-133.3 mg-unit tablet cetirizine (ZyrTEC) 10 Zyrtec 10 mg oral 0 200905/17/2020 mg tablet tablet PRN CINNAMON BARK (CINNAMON Take 1 capsule by 0 11/2205/17/2020 ORAL) mouth daily. flash glucose scanning 11.9 On insulin 1 each 0 09/11/20 18 05/17/2020 reader (FREESTYLE RAKEL Rakel 14 day reader 14 DAY READER) [facility] flash glucose sensor 11.9 Rakel 14 day 6 kit 3 09/11/20 18 05/17/2020 (FREESTYLE RAKEL 14 DAY sensor kit. Change SENSOR) kit sensor every 14 days fluticasone Administer 2 sprays 0 01/21/201710/2019 (for_FLONASE) 50 into each nostril as mcg/actuation nasal needed. spray ibuprofen (ADVIL) 200 mg Take 2 tablets by 0 11/1405/17/2020 tablet mouth as needed. insulin glargine Inject 0.3 mL (30 15 mL 2 01/16/2018 1 (BASAGLAR KWIKPEN U-100 Units total) under INSULIN) 100 unit/mL (3 the skin at bedtime. mL) injectionIndications: Diabetes Mellitus Type 2 Hypoglycemia Without Coma (HCC), Residential Use Of Insulin Active (HCC) liraglutide (VICTOZA) Inject 1.8 mg under 27 mL 3 06/0107/24/2019 0.6 mg/0.1 mL (18 mg/3 the skin daily. mL) injectionIndications: Diabetes Mellitus Type 2 Hyperglycemia (HCC) metFORMIN XR Take 4 tablets 360 tablet 3 02/20/2018 06/22/20 20 (GLUCOPHAGE-XR) 500 mg (2,000 mg total) by 24 hr tablet mouth daily. multivitamin capsule daily. 0 03/09/201001/13 omeprazole Take 20 mg by mouth 0 08/03 (for_PriLOSEC) 20 mg every morning before capsule breakfast. pen needle, diabetic 4 Injection daily. 100 each 11 018 01/30/2021 (SURE-FINE PEN NEEDLES) 31 gauge x 01/28 needleIndications: Diabetes Mellitus Type 2 Hyperglycemia (HCC), Weight Tester Use Of Insulin Active (HCC) valsartan (DIOVAN) 80 mg Take 1 tablet (80 mg 90 tablet 3 0 09/18/2017 10/20/2018 tabletIndications: total) by mouth Hypertension Essential daily. Primary documented as of this encounter Plan of Treatment Upcoming Encounters Date Type Specialty Care Team Description 06/26/2022 Appointment Neurology Preet Landeros M.D . [address] [place] [address] Bria Suh APRN, C.NBonP., M.S.N. [address] [place] [address] 07/25/2022 Appointment Radiology Preet Landeros M.D . [address] [place], [place] [phone] (Wo rk) documented as of this encounter Procedures Procedure Name Priority Date/Time Associated Diagnosis Comme nts MICROSCOPIC Routine 09/22/2018 2:07 PM Results f or this AUTOMATED RECORDS OFFICER procedure are i n the results section. URINALYSIS WITH Routine 09/22/2018 2:07 PM Body Mass Index 50. 0 Results for this MICROSCOPIC RECORDS OFFICER To 59.9 Adult (H CC) procedure are in Hyperlipidemia M ixed the results Diabetes Mellitus section. Type 2 Hyperglycemia (HCC) Hypertension Essential Primar y Carcinoma Renal Cell Left (HCC) documented in this encounter Results Microscopic Automated (09/22/2018 2:07 PM RECORDS OFFICER) athologist Signature Microscopy Normal 09/22/[address] [facility] 3:07 PM RECORDS OFFICER LABORATORIES [facility] Specimen Anatomical Collection Method Collection Time Receive d Time (Source) Location / / Volume Laterality Urine 09/22/2018 2:07 PM 9 2:07 RECORDS OFFICER PM RECORDS OFFICER Vitor Velez M.D. LAB URINE ORDERABLES Performing Organization Address City/State/ZIP Code Phon e Number [facility]ATORIES - [address] [place], [place] [address] [facility] Urinalysis with Microscopic (09/22/2018 2:07 PM RECORDS OFFICER) Patholo gist Method Time Signature Source Midstream 09/22/[address] [facility] 2:07 PM RECORDS OFFICER LABORATORIES [facility] Appearance Normal Normal 09/22/[address] [facility] 2:38 PM RECORDS OFFICER LABORATORIES - [facility] Osmolality, U 663 150 - 1150 09/22/[address] [facility] mOsm/kg 3:13 PM [facility] pH, U 6.7 4.5 - 8.0 09/22/[address] [facility] 3:13 PM [facility] Comment: ----ADDITIONAL INFORMATION---- This test was developed and its performa nce characteristics determined by [facility] in a manner co nsistent with CLIA requirements. This test has not bee n cleared or approved by the U.S. Food and Drug Admin istration. Glucose 10 0 - 15 mg/dL 09/22/2018 2:38 PM RECORDS OFFICER [facility] Protein, U 13 <26 mg/dL 09/22/2018 2:38 PM [facility] Comment: ----ADDITIONAL INFORMATION---- On 03/11/2017 the total protein assay me thod changed resulting in approximately a 15% increase in prote in values. Protein/Osmolality 0.20 <0.42 Ratio 09/22/2018 3:13 PM [facility] Comment: ----ADDITIONAL INFORMATION---- On 03/11/2017 the total protein assay me thod changed resulting in approximately a 15% increase in prote in values. Predicted 24 Hr 199 mg/24 h 09/22/2018 3:[address] [facility] Protein [facility] Predicted Range 63-628 mg/24 h 09/22/2018 3:13 PM [facility] Hemoglobin, QL Negative Negative 09/22/2018 3:[address] [facility] Specimen Anatomical Collection Method Collection Time Receive d Time (Source) Location / / Volume Laterality Urine (Urine, 09/22/2018 2:07 PM 09/22/19 19 2:07 Clean Catch) RECORDS OFFICER PM RECORDS OFFICER Vtior Velez M.D. LAB URINE ORDERABLES Performing Organization Address City/State/ZIP Code Phon e Number [facility] - [address] [place], [place] [address] [facility] documented in this encounter Visit Diagnoses Diagnosis Body Mass Index 50.0 To 59.9 Adult (HCC) Hyperlipidemia Mixed Diabetes Mellitus Type 2 Hyperglycemia ( HCC) Hypertension Essential Primary Carcinoma Renal Cell Left (HCC) documented in this encounter Additional Health Concerns Assessment Noted Time PHQ-9 Depression Total Score: 4 03/23/2018 12:54 PM CD T documented as of this encounter Care Teams Neurological Surgeon Relationship Specialty Start Date End Date Amanda Barrios, BRET, C.N.P. PCP - General 05/30/18 08/10/19 [address], [place] [phone] documented as of this encounter
--- OUTSIDE RECORDS SUMMARY | 2022-06-23 22:42 | XMS_ITS | Encounter Summary ---
:1970 Author Organization [facility] Address [address] [place] [address] Care Team Providers Name Role Phone Amanda Barrios APRN CBonNBonPBon Primary Care Provider [phone] Encounter Details Date Type Department Care Team Description 10/02/2018 Hospital Encounter Department of Shubham Espinoza Carcino ma Renal Cell Radiology, [facility], in [place], [place] [address] [place] [address] Social History Tobacco Use Types Packs/Day Years [...] 06/02/2022 organizations such as yarsanism groups, unions, fraternal or athletic groups, or [...] or slept in a residential (including now)? Sex Assigned at Date Recorded [...] injectionIndications: Diabetes Mellitus Type 2 Hyperglycemia (HCC), Choker Hooker Use Of Insulin Active (HCC) ONETOUCH VERIO [...] Rakel 14 day reader 14 DAY READER) [facility] [place] [place] flash glucose sensor 11.9 Rakel 14 day [...] Mellitus Type 2 Hypoglycemia Without Coma (HCC), Choker Hooker Use Of Insulin Active (HCC) liraglutide (VICTOZA) [...] needleIndications: Diabetes Mellitus Type 2 Hyperglycemia (HCC), Snf Use Of Insulin Active (HCC) valsartan (DIOVAN) 80 mg Take 1 tablet (80 mg 90 tablet 3 0 09/18/2017 10/20/2018 tabletIndications: total) by mouth Hypertension Essential daily. Primary documented as of this encounter Plan of Treatment Upcoming Encounters Date Type Specialty Care Team Description 06/26/2022 Appointment Neurology Preet Landeros M.D . [address] [place] [address] Bria Suh APRN, C.N.P., M.S.N. [address] [place] [address] 07/25/2022 Appointment Radiology Preet Landeros M.D . [address] [place], [place] [phone] (Wo rk) documented as of this encounter Procedures Procedure Name Priority Date/Time Associated Comments Diagnosis DX CHEST AP OR PA RAD - Routine 10/02/2018 10:54 Carcinoma Renal Re sults for this AND LATERAL 2 (most inpatients AM DATA CAPTURE SPECIALIST Cell Left (HCC) procedu re are in VIEWS and all the results outpatients) section. documented in this encounter Results DX Chest AP or PA and Lateral 2 Views (10/02/2018 10:54 AM DATA CAPTURE SPECIALIST) Anatomical Region Laterality Modality Chest, Thoracic RST LOS, Thoracic ARZ LOS, Thoracic N/A Digital Radiography FLA LOS Specimen (Source) Anatomical Collection Method Collection Time Re ceived Time Location / / Volume Laterality 10/02/2018 11:00 AM DATA CAPTURE SPECIALIST Impressions 10/02/2018 11:18 AM DATA CAPTURE SPECIALIST IMPRESSION: ??No change since 11/23/2015. Mild left basilar atelectasis or scarring. Benign 3 mm nodule in the righ t base is stable back to at least CT from 08/07/2015. Prominent cardiac fat p ads. Prominent extrapleural fat, left greater than right. Chest otherwise nega tive. Narrative 10/02/2018 11:18 AM DATA CAPTURE SPECIALIST EXAM: ??DX CHEST AP OR PA AND LATERAL 2 VIEWS Procedure Note Francisco Javier Armstrong M.D. - 10/02/2018Formattin g of this note might be different from the original. EXAM: DX CHEST AP OR PA AND LATERAL 2 EWS IMPRESSION: No change since 11/23/2015. Mild left basilar atelectasis or scarring. Benign 3 mm nodule in the righ t base is stable back to at least CT from 08/07/2015. Prominent cardiac fat p ads. Prominent extrapleural fat, left greater than right. Chest otherwise nega tive. Shubham [facility]VA DIAGNOST[facility] IMAGING PROCE FINESSE documented in this encounter Visit Diagnoses Diagnosis Carcinoma Renal Cell Left (HCC) documented in this encounter Additional Health Concerns Assessment Noted Time PHQ-9 Depression Total Score: 4 03/23/2018 12:54 PM CD T documented as of this encounter Care Teams Community Health Advisor Relationship Specialty Start Date End Date Amanda Barrios APRN, C.N.P. PCP - General 05/30/18 08/10/[address] [phone] documented as of this encounter
--- OUTSIDE RECORDS SUMMARY | 2022-06-23 22:42 | XMS_ITS | Encounter Summary ---
:1970 Author Organization [facility] Address [address] [place] [address] Care Team Providers Name Role Phone Amanda Barrios APRN, C.NPietro Primary Care Provider [phone] Encounter Details Date Type Department Care Team Description 09/25/2018 Orders Only [facility] [place] [place] [address] [place] [address] [address] [place] [phone] Social History Tobacco Use Types Packs/Day Years [...] or relatives? How often do you attend scientologist or More than 4 times per year 06/02/2022 yazdanism services? Do you belong to any clubs or Yes 06/02/2022 organizations such as scientologist groups, unions, fraternal or athletic groups, or [...] Neurology Preet Landeros M.D . [address] [place] [phone] Bria Suh APRN, C.N.P., M.S.N. [address] [place] [phone] 07/25/2022 Appointment Radiology Preet Landeros M.D . [address] [place], [place] [phone] (Wo rk) documented as of this encounter Visit Diagnoses Not on filedocumented in this encounter Additional Health Concerns Assessment Noted Time PHQ-9 Depression Total Score: 4 03/23/2018 12:54 PM CD T documented as of this encounter Care Teams Inspector Balance Wheel Motion Relationship Specialty Start Date End Date Amanda Barrios APRN, C.N.P. PCP - General 05/30/18 08/10/19 [address] [place] [phone] documented as of this encounter
--- OUTSIDE RECORDS SUMMARY | 2022-06-23 22:42 | XMS_ITS | Encounter Summary ---
:1970 Author Organization [facility] Address [address] [place] [address] Care Team Providers Name Role Phone Amanda Barrios APRN, C.NPietro Primary Care Provider [phone] Encounter Details Date Type Department Care Team Description 10/08/2018 Orders Only Department of Urology Shubham Espinoza Carci noma Renal Cell in [facility] MLaci Left (HCC) (Primary Dx) [address] [place] [address] Social History Tobacco Use Types Packs/Day Years [...] or slept in a usp (including now)? Sex Assigned at Date Recorded Male 01/30/2018 9:28 AM CDT documented as of this encounter Plan of Treatment Upcoming Encounters Date Type Specialty Care Team Description 06/26/2022 Appointment Neurology Preet Landeros M.D . [address] [place] [phone] Bria Suh APRN, C.N.P., M.S.N. [address] [place] [phone] 07/25/2022 Appointment Radiology Preet Landeros M.D . [address] [place], [place] [phone] (Wo rk) documented as of this encounter Visit Diagnoses Diagnosis Carcinoma Renal Cell Left (HCC) - Primar y documented in this encounter Additional Health Concerns Assessment Noted Time PHQ-9 Depression Total Score: 4 03/23/2018 12:54 PM CD T documented as of this encounter Care Teams Bomb Squad Commander Relationship Specialty Start Date End Date Amanda Barrios APRN, C.N.P. PCP - General 05/30/18 08/10/19 [address], [place] [phone] documented as of this encounter
--- OUTSIDE RECORDS SUMMARY | 2022-06-23 22:42 | XMS_ITS | Encounter Summary ---
:1970 Author Organization [facility] Address [address] [place] [address] Care Team Providers Name Role Phone Amanda Barrios APRN C.N.PBon Primary Care Provider [phone] Reason for Referral MRI/CAT/PET Scan (Routine) - Closed Specialty Diagnoses / Procedures Referred By Contact Refer red To Contact Radiology Diagnoses Kidney And Ureter Disorder Shubham Espinoza M.D. [place] Procedures CT Abdomen without and with IV Contrast [facility] CT ABDOMEN WO/W CNTRST HC CT ABDOMEN WO/W CNTRST VA CT ABDOMEN WO/W CNTRST [address] [place] [address] Referral ID Status Reason Start Date Expiration Date Visits Requ ested Visits Authorized [id number] Closed 10/02/2018 10/02/2019 1 1 STAPLER Reason for Visit MRI/CAT/PET Scan (Routine) - Closed Specialty Diagnoses / Procedures Referred By Contact Refer red To Contact Radiology Diagnoses Kidney And Ureter Disorder Shubham Espinoza M.D. [place] Procedures CT Abdomen without and with IV Contrast VA CT ABDOMEN WO/W CNTRST HC CT ABDOMEN WO/W CNTRST VA CT ABDOMEN WO/W CNTRST [address] [place] [address] Referral ID Status Reason Start Date Expiration Date Visits Requ ested Visits Authorized [id number] Closed 10/02/2018 10/02/2019 1 1 Encounter Details Date Type Department Care Team Description 10/02/2018 Hospital Encounter Department of Shubham Espinoza, Kidney And Ureter Radiology, [facility], in [place], [place] [address] [place] [address] Social History Tobacco Use Types Packs/Day Years [...] place to sleep or slept in a detention (including now)? Sex Assigned at Date Recorded Male 01/30/2018 9:28 AM CDT documented as of this encounter Last Filed Vital Signs Vital Sign Reading Time Taken Comments Blood Pressure - - Pulse - - Temperature - - Respiratory Rate - - Oxygen Saturation - - Inhaled Oxygen Concentration - - Weight - - Height 167.6 cm (5' 6) 10/02/2018 1:02 PM BOW STAPLER Body Mass Index - - documented in this encounter Medications at Time [...] injectionIndications: Diabetes Mellitus Type 2 Hyperglycemia (HCC), Fdc Use Of Insulin Active (HCC) ONETOUCH VERIO [...] 14 day reader 14 DAY READER) [facility] [place] flash glucose sensor 11.9 Rakel 14 day [...] Mellitus Type 2 Hypoglycemia Without Coma (HCC), 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 Primary documented as of this encounter Plan of Treatment Upcoming Encounters Date Type Specialty Care Team Description 06/26/2022 Appointment Neurology Preet Landeros M.D . [address] [place] [phone] Bria Suh, BRET, C.N.P., M.S.N. [address] [place] [phone] 07/25/2022 Appointment Radiology Preet Landeros M.D . [address] [place] [phone] (Wo rk) documented as of this encounter Procedures Procedure Name Priority Date/Time Associated Comments Diagnosis CT ABDOMEN RAD - Routine 10/02/2018 2:05 Kidney And Ureter Result s for this WITHOUT AND WITH (most inpatients PM BOW STAPLER Disorder procedu re are in IV CONTRAST and all the results outpatients) section. documented in this encounter Results CT Abdomen without and with IV Contrast (10/02/2018 2:05 PM BOW STAPLER) Anatomical Region Laterality Modality Abdomen, Abdominal RST LOS, Abdominal ARZ LOS, N/A Computed Tomography Abdominal FLA LOS Specimen (Source) Anatomical Collection Method Collection Time Re ceived Time Location / / Volume Laterality 10/02/2018 3:40 PM BOW STAPLER Impressions 10/02/2018 3:48 PM BOW STAPLER IMPRESSION: ?? 1. Findings of remodeling/partial resolu tion of post ablation changes involving the left mid kidney. No worrisome findin gs for recurrence. 2. No findings to suggest metastatic dis ease in the abdomen. 3. Where seen, lung bases remain free of nodules. Narrative 10/02/2018 3:48 PM BOW STAPLER EXAM: ??CT ABDOMEN WITHOUT AND WITH IV CONTRAST COMPARISON: ??03/13/2016 and 08/07/2015 FINDINGS: ??Significant findings detaile d in the impression. Liver and adrenal glands remain unremark able. Right kidney remains unremarkable. No worrisome adenopathy. No skeletal les ions. Stable postoperative changes in the anterior abdominal wall with focal a john of soft tissue thickening/scar. Other than the partial resolution and re modeling at the ablation site in the left kidney, no significant new findings . No enhancing tissue at the ablation site. Procedure Note Hua Saleh M.D. - 10/02/2018Format ting of this note might be different from the original. EXAM: CT ABDOMEN WITHOUT AND WITH IV CON TRAST COMPARISON: 03/13/2016 and 08/07/2015 FINDINGS: Significant findings detailed in the impression. Liver and adrenal glands remain unremark able. Right kidney remains unremarkable. No worrisome adenopathy. No skeletal les ions. Stable postoperative changes in the anterior abdominal wall with focal a john of soft tissue thickening/scar. Other than the partial resolution and re modeling at the ablation site in the left kidney, no significant new findings . No enhancing tissue at the ablation site. IMPRESSION: 1. Findings of remodeling/partial resolu tion of post ablation changes involving the left mid kidney. No worrisome findin gs for recurrence. 2. No findings to suggest metastatic dis ease in the abdomen. 3. Where seen, lung bases remain free of nodules. Shubham Espinoza M.D. IMJason CT PROCEDURES documented in this encounter Visit Diagnoses Diagnosis Kidney And Ureter Disorder documented in this encounter Administered Medications Inactive Administered Medications - up to 3 most recent administrations Medication Order MAR Action Action Date Dose Rate Site iohexol 300 mg iodine/mL solution Given 10/02/2018 2:05 PM BOW STAPLER 1 00 mL 1-200 mL (OMNIPAQUE) 1-200 mL, intravenous, Once in imaging, contrast, Starting on Fri10/02/18 at 1258, For 1 dose, Imaging Protocol Orders, Dose per Radiant Medication Guidelines sodium chloride (PF) 0.9 % injection 50 mL Given 10/02/2018 2:06 PM BOW STAPLER 50 mL 50 mL, intravenous, Once, On Fri10/02/18 at 1300, For 1 dose sodium chloride 0.9 % injection 2.5 mL Given 10/02/2018 2:07 PM BOW STAPLER 2.5 mL 2.5 mL, intravenous, As needed, line care, Starting on Fri10/02/18 at 1259 documented in this encounter Additional Health Concerns Assessment Noted Time PHQ-9 Depression Total Score: 4 03/23/2018 12:54 PM CD T documented as of this encounter Care Teams Roving Carrier Relationship Specialty Start Date End Date Amanda Barrios, BRET, C.N.P. PCP - General 05/30/18 08/10/[address] [phone] documented as of this encounter
--- OUTSIDE RECORDS SUMMARY | 2022-06-23 22:42 | XMS_ITS | Encounter Summary ---
:1970 Author Organization [facility] Address [address] [place] [address] Care Team Providers Name Role Phone Elsewhere, Pcp Primary Care Provider Unavailable Reason for Referral Outpatient (Routine) - Closed Specialty Diagnoses / Procedures Referred By Contact Refer red To Contact Diagnoses Migraine Headache Chronic Preet Landeros M.D. [facility] Procedures Botox for Chronic Migraine MT INJECTION,ONABOTULINUMTOXINA MT CHEMODENERV FACIAL TRIGEM NATALIE Botox (Onabotulinumtoxina) J0585 150 units every 12 weeks [address] [place] [address] Referral ID Status Reason Start Date Expiration Date Visits Requ ested Visits Authorized [id number] Closed 05/17/2020 05/17/2022 12 12 Reason for Visit Outpatient (Routine) - Closed Specialty Diagnoses / Procedures Referred By Contact Refer red To Contact Diagnoses Migraine Headache Chronic Preet Landeros M.D. [facility] Procedures Botox for Chronic Migraine MT INJECTION,ONABOTULINUMTOXINA MT CHEMODENERV FACIAL TRIGEM NATALIE Botox (Onabotulinumtoxina) J0585 150 units every 12 weeks [address] [place], [place] [address] Referral ID Status Reason Start Date Expiration Date Visits Requ ested Visits Authorized [id number] Closed 05/17/2020 05/17/2022 12 12 Encounter Details Date Type Department Care Team Description 05/25/2020 Hospital Encounter Department of Preet Landeros M.D. [address] [place] [phone] Migraine Headache Neurology in [place] M.D. [address] [place] [phone] Chronic [place], [place] [address] [place] [phone] Social History Tobacco Use Types Packs/Day Years [...] More than 4 times per year 06/02/2022 adventism services? Do you belong to any clubs [...] 05/18/2020 Dexcom G6 Transmitter 0 03/27/2020 device insulin aspart U-100 18 units before each 30 mL 5 07/19 (NovoLOG Flexpen U-100 meal 3 times daily. Insulin) 100 unit/mL injectionIndications: Diabetes Mellitus Type 2 Hyperglycemia (HCC), Assisted Use Of Insulin Active (HCC) ipratropium (ATROVENT) Administer 2 sprays 0 0.03 [...] miscellaneous medical CPAP machine 0 01/05/2019 supply [facility] supplies naproxen (NAPROSYN) 500 Take 500 mg by mouth 0 mg tablet 2 (two) times a day as needed. ONETOUCH VERIO strips Test blood glucose 8 720 strip 3 05/16 times per day valsartan (DIOVAN) 80 mg TAKE 1 TABLET (80 MG 90 tablet 3 0 10/20/2018 tabletIndications: TOTAL) BY MOUTH Hypertension Essential DAILY. Primary ferrous sulfate 324 mg Take 65 mg of iron 0 09/20/2020 (65 mg iron) DR tablet by mouth daily. insulin glargine Inject 0.3 mL (30 15 mL 2 01/16/2018 1 (BASAGLAR KWIKPEN U-100 Units total) under INSULIN) 100 unit/mL (3 the skin at bedtime. 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 multivitamin capsule daily. 0 03/09/201001/13 ofloxacin (OCUFLOX) 0.3 Administer 1 drop 0 10/0901/08/2022 % ophthalmic solution into each ear as needed. omeprazole Take 20 mg by mouth 0 08/03 (for_PriLOSEC) 20 mg every morning before capsule breakfast. pen needle, diabetic 4 Injection daily. 100 each 11 018 01/30/2021 (SURE-FINE PEN NEEDLES) 31 gauge x 5/16 needleIndications: Diabetes Mellitus Type 2 Hyperglycemia (HCC), Assisted Use Of Insulin Active (HCC) propranoloL (INDERAL) 60 Take 40 mg by mouth 0 09/20/2020 mg tablet 2 (two) times a day. sertraline HCl Take 200 mg by mouth 0 01/31/2021 (SERTRALINE ORAL) daily. SUMAtriptan (IMITREX) 50 Take 50 mg by mouth 0 06/03/2022 mg tablet as needed. May repeat dose once in 2 hours if migraine unresolved. Do not exceed 200 mg in 24 hours. documented as of this encounter Procedure Notes Jazmyn Gore M.D. - 05/25/2020 9:15 AM CDTAssociated Order(s): Botox for Chronic Migraine Pre-Procedure Diagnose(s): Migraine Headache Chronic Post-Procedure Diagnose(s): Migraine Headache Chronic Botox for Chronic Migraine Date/Time: 05/25/2020 9:15 AM Performed by: Jazmyn Gore M.D. Authorized by: Preet Landeros M.D. PROCEDURE DETAILS Pre-procedure pain score: 2/10 Injection of: 100 Units onabotulinumtoxinA 100 unit 50 Units onabotulinumtoxinA (cosmetic) 50 unit Needle gauge: 30 Needle length: 0.5 in Injection site details Materials Technician / Procerus muscle(s): 5 units into the left incubator machine operator muscle, 5 units into the right incubator machine operator muscle and 5 units into the [...] not covered by a third libertarian. 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 [address] [place] [phone] Bria Suh APRN, C.N.P., M.S.N. [address] [place] [phone] 07/25/2022 Appointment Radiology Preet Landeros M.D . [address] [place] [phone] (Wo rk) documented as of this encounter Procedures Procedure Name Priority Date/Time Associated Comments Diagnosis MT CHEMODENERV FACIAL Routine 05/25/2020 9:15 AM Migraine Head ache Results for this TRIGEM NATALIE CDT Chronic procedure are i n the results section. documented in this encounter Results MT CHEMODENERV FACIAL TRIGEM NATALIE (05/25/2020 9:15 AM [...] Needle length: 0.5 in Injection site details Materials Technician / Procerus muscle(s): 5 units into the left incubator machine operator muscle, 5 units into the right incubator machine operator muscle and 5 units into the [...] Date Dose Rate Site onabotulinumtoxinA (cosmetic) Given 05/25/2020 9:15 AM 50 Units injection 50 Units (BOTOX CDT COSMETIC) 50 Units, injection, One-Time Injection, Starting on [place] 05/25/20 at 0915, For 1 dose onabotulinumtoxinA injection 100 Units Given 05/25/2020 9:15 AM CDT 100 Units (BOTOX) 100 Units, injection, One-Time Injection, Starting on [place] 05/25/20 at 0915, For 1 dose documented in this encounter Additional Health Concerns Assessment Noted Time PHQ-9 Depression Total Score: 16 05/17/2020 1:26 PM CD T documented as of this encounter Care Teams Plant Control Operator Relationship Specialty Start Date End Date Elsewhere, Pcp PCP - General Family Medicine 08/11/19 documented as of this encounter
--- OUTSIDE RECORDS SUMMARY | 2022-06-23 22:42 | XMS_ITS | Encounter Summary ---
:1970 Author Organization [facility] Address [address] [place] [address] Care Team Providers Name Role Phone Elsewhere, Pcp Primary Care Provider Unavailable Reason for Visit Reason Comments Med Refill Encounter Details Date Type Department Care Team Description 10/11/2019 Refill Department of Family Medicine, Lupillo Morales I., Med Refill [facility], in [place], [place] [address] [place] [address] [place] [address] [phone] Social History Tobacco Use Types Packs/Day Years [...] this encounter Miscellaneous Notes Telephone Encounter - Ignacia Han - 10/11/2019 4:35 PM CST Patient appears to be doctoring at [facility]. 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 [address] [place] [phone] Bria Suh APRN, C.N.P., M.S.N. [address] [place] [phone] 07/25/2022 Appointment Radiology Preet Landeros M.D . [address] [place] [phone] (Wo rk) documented as of this encounter Visit Diagnoses Diagnosis Hypertension Essential Primary documented in this encounter Additional Health Concerns Assessment Noted Time PHQ-9 Depression Total Score: 4 03/23/2018 12:54 PM CD T documented as of this encounter Care Teams Final Inspector Truck Trailer Relationship Specialty Start Date End Date Elsewhere, Pcp PCP - General Family Medicine 08/11/19 documented as of this encounter
--- OUTSIDE RECORDS SUMMARY | 2022-06-23 22:42 | XMS_ITS | Encounter Summary ---
:1970 Author Organization [facility] Address [address] [place] [address] Care Team Providers Name Role Phone Amanda Barrios APRN, C.N.P. Primary Care Provider [phone] Encounter Details Date Type Department Care Team Description 10/20/2018 Clinical Communication Department of Mayda Russell, Medicine, [place] BRET, C.N.P. [facility], in [place] [address] [place], [place] [address] [address] [place], [place] [phone] (Work) [phone] Social History Tobacco Use Types Packs/Day Years [...] to sleep or slept in a senior care (including now)? Sex Assigned at Date Recorded Male 01/30/2018 9:28 AM CDT documented as of this encounter Plan of Treatment Upcoming Encounters Date Type Specialty Care Team Description 06/26/2022 Appointment Neurology Preet Landeros M.D . [address] [place] [address] Bria Suh APRN, C.N.P., M.S.N. [address] [place] [phone] 07/25/2022 Appointment Radiology Preet Landeros M.D . [address] [place] [phone] (Wo rk) documented as of this encounter Visit Diagnoses Not on filedocumented in this encounter Additional Health Concerns Assessment Noted Time PHQ-9 Depression Total Score: 4 03/23/2018 12:54 PM CD T documented as of this encounter Care Teams Pediatric Dermatologist Relationship Specialty Start Date End Date Amanda Barrios APRN, C.N.P. PCP - General 05/30/18 08/10/19 [address] [place] [phone] documented as of this encounter
--- OUTSIDE RECORDS SUMMARY | 2022-06-23 22:42 | XMS_ITS | Encounter Summary ---
:[address] [facility] Address [address] [place] [address] Care Team Providers Name Role Phone Amanda Barrios APRN, C.NPietro Primary Care Provider [phone] Reason for Referral Medication Prior Authorization (Routine) - Closed Specialty Diagnoses / Procedures Referred By Contact Refer red To Contact Diagnoses Diabetes Mellitus Type 2 Hyperglycemia (HCC) Carmen Gallo M.B., B.Ch. [address] [place] [phone] Referral ID Status Reason Start Date Expiration Date Visits Requ ested Visits Authorized [id number] Closed LIANCE AIDE Reason for Visit Reason Comments Med Refill Encounter Details Date Type Department Care Team Description 07/24/2019 Refill Division of Endocrinology in Carmen Jimenez Refill [place], [place] Jacque Johnston, B.Ch. [address] [facility] [address] [place] [address] [place] [phone] (Wo rk) Social History Tobacco Use Types [...] More than 4 times per year 06/02/2022 anglican services? Do you belong to any clubs [...] this encounter Miscellaneous Notes Telephone Encounter - Jazmin Posey R.N., C.D.E. - 07/27/2019 8:45 AM COMPLIANCE AIDE Annual renewal request for Victoza pen injectors was received from pharmacy. LIANCE AIDE documented in this encounter Plan of Treatment Upcoming Encounters Date Type Specialty Care Team Description 06/26/2022 Appointment Neurology Peret Landeros M.D . [address] [place] [phone] Bria Suh APRN, C.N.P., M.S.N. [address] [place] [phone] 07/25/2022 Appointment Radiology Preet Landeros M.D . [address] [place], [place] [phone] (Wo rk) documented as of this encounter Visit Diagnoses Diagnosis Diabetes Mellitus Type 2 (HCC) - Primary Diabetes Mellitus Type 2 Hyperglycemia ( HCC) documented in this encounter Additional Health Concerns Assessment Noted Time PHQ-9 Depression Total Score: 4 03/23/2018 12:54 PM CD T documented as of this encounter Care Teams Emergency Communications Officer Relationship Specialty Start Date End Date Amanda Barrios APRN, C.N.P. PCP - General 05/30/18 08/10/19 [address] [phone] documented as of this encounter
--- OUTSIDE RECORDS SUMMARY | 2022-06-23 22:42 | XMS_ITS | Encounter Summary ---
:1970 Author Organization [facility] Address [address] [place] [address] Care Team Providers Name Role Phone Elsewhere, Pcp Primary Care Provider Unavailable Reason for Visit Outpatient (Routine) - Closed Specialty Diagnoses / Procedures Referred By Contact Refer red To Contact Nutrition Diagnoses Diabetes Mellitus Type 2 Hyperglycemia (HCC) Reg Quick M.D. [facility] [address] [place] [phone] Referral ID Status Reason Start Date Expiration Date Visits Requ ested Visits Authorized [id number] Closed 06/22/2020 06/22/2021 1 1 Encounter Details Date Type Department Care Team Description 06/28/2020 Clinical Support Department of Adriana Roy Type Nutrition in R, MBonEd., RDN, 2 Hyperglycem ia (HCC) [facility] [address] [place] [address] [place] [phone] Social History Tobacco Use Types Packs/Day Years [...] 06/02/2022 organizations such as methodist groups, unions, fraGuidesMob or athletic groups, or school groups? How [...] documented as of this encounter Progress Notes Adriana Roy, RDN, LD - 06/28/2020 8:00 AM CDT REASON FOR VISIT Physician consult for: Type 2 Diabetes and Weight Management HISTORY OF PRESENT ILLNESS The following portions of the patient's history were reviewed and updated as appropriate: allergies,current medications, family history, medical history, social history, surgical history and problem list. Met with patient and . 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 Nutrition Prescription/Recommendation 2000 calories with 60 grams of carbohydrate with each meal INTERVENTION Education: Diabetes, Weight Management, Post bariatric surgery, Mediterranean diet Reviewed carbohydrate counting. Main points include: which foods contain carbohydrates and those that have little or none as well as food label teaching (serving size and total carbohydrates). Encouraged consistency in the amount of carbohydrate at meals throughout the day. See Patient Education Record for information regarding education materials covered today. MONITORING AND EVALUATION: Nutrition parameters to monitor: weight change Desired Outcome: Gradual weight loss of 1-2 kg per month Patient Goal(s): 1. Patient will work on decreasing portions to meet the recommendations given 2. Patient will decrease his intake of sweets especially at bedtime snack, become more comfortable with less basal insulin he will not drop low over night. 3. Patient will consider increasing his physical activity especially on his days off. FOLLOW UP PLAN: Provided contact information if a follow up appointment is desired or if questions should arise. Time spent with patient (minutes): 45 documented in this encounter Plan of Treatment Upcoming Encounters Date Type Specialty Care Team Description 06/26/2022 Appointment Neurology Preet Landeros M.D . [address] [place] [phone] Bria Suh APRN, C.N.P., M.S.N. 200 [place] [phone] 07/25/2022 Appointment Radiology Preet Landeros M.D . [address] [place] [phone] (Wo rk) documented as of this encounter Visit Diagnoses Diagnosis Diabetes Mellitus Type 2 Hyperglycemia ( HCC) documented in this encounter Additional Health Concerns Assessment Noted Time PHQ-9 Depression Total Score: 16 05/17/2020 1:26 PM CD T documented as of this encounter Care Teams Instrument Room Technician Relationship Specialty Start Date End Date Elsewhere, Pcp PCP - General Family Medicine 08/11/19 documented as of this encounter
--- OUTSIDE RECORDS SUMMARY | 2022-06-23 22:42 | XMS_ITS | Encounter Summary ---
:[address] [facility] Address [address] [place] [address] Care Team Providers Name Role Phone Amanda Barrios APRN, C.N.P. Primary Care Provider [phone] Encounter Details Date Type Department Care Team Description 09/22/2018 Hospital Encounter Department of Vitor Velez Body Mass Index 50.0 To 59.9 Adult (HCC); Laboratory S, M.D. Hyperlipidemia Mixed; Medicine and [address] [place] [address] Diabetes Mellitus Type 2 Hyperglycemia ( HCC); Pathology, [place], [place] Hypertens ion Essential Primary; [facility] [place] [phone] Carcinoma Renal Cell Left (HCC) [facility] [phone] [place] (Work) [address] [place] [address] [place], [place] (Fax) [phone] Social History Tobacco Use [...] slept in a senior living (including now)? 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 Primary documented as of this encounter Plan of Treatment Upcoming Encounters Date Type Specialty Care Team Description 06/26/2022 Appointment Neurology Preet Landeros M.D . [address] [place] [phone] Bria Suh APRN C.N.P., M.S.N. [address] [place] [phone] 07/25/2022 Appointment Radiology Preet Landeros M.D . [address] [place] [phone] (Wo rk) documented as of this encounter Procedures Procedure Name Priority Date/Time Associated Diagnosis Comme nts CBC WITHOUT Routine 09/22/2018 11:55 Body Mass Index 50.0 Res ults for this DIFFERENTIAL, B AM VISITING PROFESSOR To 59.9 Adult (H CC) procedure are in Hyperlipidemia M ixed the results Diabetes Mellitus section. Type 2 Hyperglycemia (HCC) Hypertension Essential Primar y Carcinoma Renal Cell Left (HCC) BUN (BLOOD UREA Routine 09/22/2018 11:55 Body Mass Index 50.0 Results for this NITROGEN), S/P AM VISITING PROFESSOR To 59.9 Adult (H CC) procedure are in Hyperlipidemia M ixed the results Diabetes Mellitus section. Type 2 Hyperglycemia (HCC) Hypertension Essential Primar y Carcinoma Renal Cell Left (HCC) ALANINE AMINOTRANSFERASE Routine 09/22/2018 11:55 Body Mass In dex 50.0 Results for this (ALT), S/P AM VISITING PROFESSOR To 59.9 Adult (H CC) procedure are in Hyperlipidemia M ixed the results Diabetes Mellitus section. Type 2 Hyperglycemia (HCC) Hypertension Essential Primar y Carcinoma Renal Cell Left (HCC) ASPARTATE Routine 09/22/2018 11:55 Body Mass Index 50.0 Res ults for this AMINOTRANSFERASE (AST), AM VISITING PROFESSOR To 59.9 Adult (HCC) procedure are in S/P Hyperlipidemia M ixed the results Diabetes Mellitus section. Type 2 Hyperglycemia (HCC) Hypertension Essential Primar y Carcinoma Renal Cell Left (HCC) SODIUM, S/P Routine 09/22/2018 11:55 Body Mass Index 50.0 Res ults for this AM VISITING PROFESSOR To 59.9 Adult (H CC) procedure are in Hyperlipidemia M ixed the results Diabetes Mellitus section. Type 2 Hyperglycemia (HCC) Hypertension Essential Primar y Carcinoma Renal Cell Left (HCC) POTASSIUM, S/P Routine 09/22/2018 11:55 Body Mass Index 50.0 R esults for this AM VISITING PROFESSOR To 59.9 Adult (H CC) procedure are in Hyperlipidemia M ixed the results Diabetes Mellitus section. Type 2 Hyperglycemia (HCC) Hypertension Essential Primar y Carcinoma Renal Cell Left (HCC) ALKALINE PHOSPHATASE, Routine 09/22/2018 11:55 Body Mass Index 50.0 Results for this S/P AM VISITING PROFESSOR To 59.9 Adult (H CC) procedure are in Hyperlipidemia M ixed the results Diabetes Mellitus section. Type 2 Hyperglycemia (HCC) Hypertension Essential Primar y Carcinoma Renal Cell Left (HCC) CREATININE WITH EGFR, Routine 09/22/2018 11:55 Body Mass Index 50.0 Results for this S/P AM VISITING PROFESSOR To 59.9 Adult (H CC) procedure are in Hyperlipidemia M ixed the results Diabetes Mellitus section. Type 2 Hyperglycemia (HCC) Hypertension Essential Primar y Carcinoma Renal Cell Left (HCC) CHLORIDE, S/P Routine 09/22/2018 11:55 Body Mass Index 50.0 Re sults for this AM VISITING PROFESSOR To 59.9 Adult (H CC) procedure are in Hyperlipidemia M ixed the results Diabetes Mellitus section. Type 2 Hyperglycemia (HCC) Hypertension Essential Primar y Carcinoma Renal Cell Left (HCC) BICARBONATE, B/S/P Routine 09/22/2018 11:55 Body Mass Index 50 .0 Results for this AM VISITING PROFESSOR To 59.9 Adult (H CC) procedure are in Hyperlipidemia M ixed the results Diabetes Mellitus section. Type 2 Hyperglycemia (HCC) Hypertension Essential Primar y Carcinoma Renal Cell Left (HCC) CALCIUM, TOT, S/P Routine 09/22/2018 11:55 Body Mass Index 50. 0 Results for this AM VISITING PROFESSOR To 59.9 Adult (H CC) procedure are in Hyperlipidemia M ixed the results Diabetes Mellitus section. Type 2 Hyperglycemia (HCC) Hypertension Essential Primar y Carcinoma Renal Cell Left (HCC) documented in this encounter Results Calcium, Total (09/22/2018 11:55 AM VISITING PROFESSOR) P athologist Signature Calcium, 9.3 8.6 - 10.0 09/22/2018 [facility] Total, S mg/dL 12:53 PM VISITING PROFESSOR LABORATORIES - [facility] Specimen Anatomical Collection Method Collection Time Receive d Time (Source) Location / / Volume Laterality Blood (Blood, 09/22/2018 11:55 09/22/2018 Venous) AM VISITING PROFESSOR 12:17 PM VISITING PROFESSOR Vitor Velez M.D. LAB BLOOD ADD-ON Performing Organization Address City/[facility] Phon e Number [facility] - [address] [place] [address] [facility] ALT (Alanine Aminotransferase) (09/22/2018 11:55 AM VISITING PROFESSOR) [facility] Method Time Signature Alanine 25 7 - 55 09/22/2018 [facility] Aminotransferase U/L 12:53 PM LABORATORIES - (ALT), S [facility] Specimen Anatomical Collection Method Collection Time Receive d Time (Source) Location / / Volume Laterality Blood (Blood, 09/22/2018 11:55 09/22/2018 Venous) AM VISITING PROFESSOR 12:17 PM VISITING PROFESSOR Vitor Velez M.D. LAB BLOOD ADD-ON Performing Organization Address City/[facility] Phon e Number [facility] - [address] [place] [address] [facility] AST (Aspartate Aminotransferase) (09/22/2018 11:55 AM VISITING PROFESSOR) [facility] Method Time Signature Aspartate 20 8 - 48 09/22/2018 [facility] Aminotransferase U/L 12:53 PM LABORATORIES - (AST), S [facility] Specimen Anatomical Collection Method Collection Time Receive d Time (Source) Location / / Volume Laterality Blood (Blood, 09/22/2018 11:55 09/22/2018 Venous) AM VISITING PROFESSOR 12:17 PM VISITING PROFESSOR Vitor Velez M.D. LAB BLOOD ADD-ON Performing Organization Address City/[facility] Phon e Number [facility] - [address] [place] [address] [facility] Creatinine with Estimated GFR (09/22/2018 11:55 AM VISITING PROFESSOR) [facility] Signature Creatinine 1.03 0.74 - 09/22/2018 [facility] 1.35 mg/dL 12:53 PM VISITING PROFESSOR LAB[facility]ATORIES - [facility] eGFR-Non 85 >=60 09/22/2018 [facility] Black/ mL/min/BSA 12:53 PM VISITING PROFESSOR LABORATORIES - [facility] Comment: ----ADDITIONAL INFORMATION---- Estimated GFR calculated using the 2009 CKD_EPI creatinine equation. eGFR-Black/ >90 >=60 mL/min/BSA 09/22/2018 12:5 3 [facility] VISITING PROFESSOR LAB[facility]ATORIES - [facility] Comment: ----ADDITIONAL INFORMATION---- Estimated GFR calculated using the 2009 CKD_EPI creatinine equation. Specimen Anatomical Collection Method Collection Time Receive d Time (Source) Location / / Volume Laterality Blood (Blood, 09/22/2018 11:55 09/22/2018 Venous) AM VISITING PROFESSOR 12:17 PM VISITING PROFESSOR Vitor Velez M.D. LAB BLOOD ADD-ON Performing Organization Address City/[facility]/ZIP Code Phon e Number [facility] - [address] [place], [place] [address] [facility] BUN (Blood Urea Nitrogen) (09/22/2018 11:55 AM VISITING PROFESSOR) P athologist Signature BUN (Blood 14 8 - 24 09/22/2018 [facility] Urea mg/dL 12:53 PM VISITING PROFESSOR LABORATORIES - Nitrogen), S [facility] Specimen Anatomical Collection Method Collection Time Receive d Time (Source) Location / / Volume Laterality Blood (Blood, 09/22/2018 11:55 09/22/2018 Venous) AM VISITING PROFESSOR 12:17 PM VISITING PROFESSOR Vitor Velez M.D. LAB BLOOD ADD-ON Performing Organization Address City/[facility]/ZIP Code Phon e Number [facility] - [address] [place], [place] [address] [facility] Bicarbonate (09/22/2018 11:55 AM VISITING PROFESSOR) P athologist Signature Bicarbonate, S 29 22 - 29 09/22/2018 [facility] mmol/L 12:53 PM VISITING PROFESSOR [facility]ATOR[facility] - [facility] Specimen Anatomical Collection Method Collection Time Receive d Time (Source) Location / / Volume Laterality Blood (Blood, 09/22/2018 11:55 09/22/2018 Venous) AM VISITING PROFESSOR 12:17 PM VISITING PROFESSOR Vitor Velez M.D. LAB BLOOD ADD-ON Performing Organization Address City/[facility]/ZIP Code Phon e Number [facility] - [address] [place], [place] [address] [facility] Chloride (09/22/2018 11:55 AM VISITING PROFESSOR) P athologist Signature Chloride, S 103 98 - 107 09/22/2018 [facility] mmol/L 12:53 PM VISITING PROFESSOR [facility]IES - [facility] Specimen Anatomical Collection Method Collection Time Receive d Time (Source) Location / / Volume Laterality Blood (Blood, 09/22/2018 11:55 09/22/2018 Venous) AM VISITING PROFESSOR 12:17 PM VISITING PROFESSOR Vitor Velez M.D. LAB BLOOD ADD-ON Performing Organization Address City/[facility]/ZIP Code Phon e Number [facility] - [address] [place] [address] [facility] Potassium (09/22/2018 11:55 AM VISITING PROFESSOR) athologist Signature Potassium, S 4.4 3.6 - 5.2 09/22/2018 [facility] mmol/L 12:53 PM VISITING PROFESSOR [facility] Specimen Anatomical Collection Method Collection Time Receive d Time (Source) Location / / Volume Laterality Blood (Blood, 09/22/2018 11:55 09/22/2018 Venous) AM VISITING PROFESSOR 12:17 PM VISITING PROFESSOR Vitor Velez M.D. LAB BLOOD ADD-ON Performing Organization Address City/[facility]/ZIP Code Phon e Number [facility] - [address] [place] [address] [facility] Sodium (09/22/2018 11:55 AM VISITING PROFESSOR) athologist Signature Sodium, S 140 135 - 145 09/22/2018 [facility] mmol/L 12:53 PM VISITING PROFESSOR [facility] Specimen Anatomical Collection Method Collection Time Receive d Time (Source) Location / / Volume Laterality Blood (Blood, 09/22/2018 11:55 09/22/2018 Venous) AM VISITING PROFESSOR 12:17 PM VISITING PROFESSOR Vitor Velez M.D. LAB BLOOD ADD-ON Performing Organization Address City/[facility]/ZIP Code Phon e Number [facility] - [address] [place] [address] [facility] Alkaline Phosphatase (09/22/2018 11:55 AM VISITING PROFESSOR) athologist Signature Alkaline 90 40 - 129 09/22/2018 [facility] Phosphatase, S U/L 12:53 PM VISITING PROFESSOR LABORATORIES [facility] Specimen Anatomical Collection Method Collection Time Receive d Time (Source) Location / / Volume Laterality Blood (Blood, 09/22/2018 11:55 09/22/2018 Venous) AM VISITING PROFESSOR 12:17 PM VISITING PROFESSOR Vitor Velez M.D. LAB BLOOD ADD-ON Performing Organization Address City/[facility] Code Phon e Number [facility] - [address] [place] [address] [facility] (ABNORMAL) CBC without Differential (09/22/2018 11:55 AM VISITING PROFESSOR) [facility] gist Method Time Signature Hemoglobin 13.7 13.2 - 09/22/2018 [facility] 16.6 g/dL 12:32 PM VISITING PROFESSOR [facility] - [facility] Hematocrit 44.4 38.3 - 09/22/2018 [facility] 48.6 % 12:32 PM VISITING PROFESSOR [facility] - [facility] Erythrocytes 5.55 4.35 - 09/22/2018 [facility] 5.65 12:32 PM VISITING PROFESSOR LABORATORIES - x10(12)/L [facility] MCV 80.0 78.2 - 09/22/2018 [facility] 97.9 fL 12:32 PM VISITING PROFESSOR [facility] - [facility] RBC Distrib 15.8 (H) 11.8 - 09/22/2018 [facility] Width 14.5 % 12:32 PM VISITING PROFESSOR [facility] - [facility] Platelet Count 343 (H) 135 - 317 09/22/2018 [facility] x10(9)/L 12:32 PM VISITING PROFESSOR LAB[facility]ATORIES - [facility] Leukocytes 13.4 (H) 3.4 - 9.6 09/22/2018 [facility] x10(9)/L 12:32 PM VISITING PROFESSOR LABORATORIES [facility] Specimen Anatomical Collection Method Collection Time Receive d Time (Source) Location / / Volume Laterality Blood (Blood, 09/22/2018 11:55 09/22/2018 Venous) AM VISITING PROFESSOR 12:17 PM VISITING PROFESSOR Vitor Velez M.D. LAB BLOOD ADD-ON Performing Organization Address City/[facility] Code Phon e Number [facility] - [address] documented in this encounter Visit Diagnoses Diagnosis Body Mass Index 50.0 To 59.9 Adult (HCC) Hyperlipidemia Mixed Diabetes Mellitus Type 2 Hyperglycemia ( HCC) Hypertension Essential Primary Carcinoma Renal Cell Left (HCC) documented in this encounter Additional Health Concerns Assessment Noted Time PHQ-9 Depression Total Score: 4 03/23/2018 12:54 PM CD T documented as of this encounter Care Teams Roll Over Press Operator Relationship Specialty Start Date End Date Amanda Barrios, BRET, C.N.P. PCP - General 05/30/18 08/10/[address] [phone] documented as of this encounter
--- OUTSIDE RECORDS SUMMARY | 2022-06-23 22:42 | XMS_ITS | Encounter Summary ---
:1970 Author Organization [facility] Address [address] [place] [address] Care Team Providers Name Role Phone Elsewhere, Pcp Primary Care Provider Unavailable Encounter Details Date Type Department Care Team Description 06/28/2020 Orders Only Division of Endocrinology in Ana Crocker, [place], [place], Ph.D. [address] [place] [address] [address] [place] [address] [place], [place] [phone] (Wo rk) Social History Tobacco Use Types [...] or the highest technical, or vocational p kaite degree you have received? Sex Assigned at Date Recorded Male 01/30/2018 9:28 AM CDT documented as of this encounter Plan of Treatment Upcoming Encounters Date Type Specialty Care Team Description 06/26/2022 Appointment Neurology Preet Landeros M.D . [address] [place] [phone] Bria Suh APRN, C.N.P., M.S.N. [address] [place] [phone] 07/25/2022 Appointment Radiology Preet Landeros M.D . [address] [place] [phone] (Wo rk) documented as of this encounter Visit Diagnoses Not on filedocumented in this encounter Additional Health Concerns Assessment Noted Time PHQ-9 Depression Total Score: 16 05/17/2020 1:26 PM CD T documented as of this encounter Care Teams Combination Machine Tool Operator Relationship Specialty Start Date End Date Elsewhere, Pcp PCP - General Family Medicine 08/11/19 documented as of this encounter
--- OUTSIDE RECORDS SUMMARY | 2022-06-23 22:42 | XMS_ITS | Encounter Summary ---
:1970 Author Organization [facility] Address [address] [place] [address] Care Team Providers Name Role Phone Amanda Barrios APRN C.N.PBon Primary Care Provider [phone] Reason for Referral MRI/CAT/PET Scan (Routine) - Closed Specialty Diagnoses / Procedures Referred By Contact Refer red To Contact Radiology Diagnoses Kidney And Ureter Disorder Shubham Espinoza M.D. [facility] Procedures CT Abdomen without and with IV Contrast ID CT ABDOMEN WO/W CNTRST HC CT ABDOMEN WO/W CNTRST ID CT ABDOMEN WO/W CNTRST 200 [place] [address] Referral ID Status Reason Start Date Expiration Date Visits Requ ested Visits Authorized [id number] Closed 10/02/2018 10/02/2019 1 1 CAL OFFICE REPRESENTATIVE Reason for Visit Outpatient (Routine) - Closed Specialty Diagnoses / Procedures Referred By Contact Refer red To Contact Urology Diagnoses Body Mass Index 50.0 To 59.9 Adult (HCC) Hyperlipidemia Mixed Diabetes Mellitus Type 2 Hyperglycemia (HCC) Hypertension 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 [facility] [address] [place] [phone] Referral ID Status Reason Start Date Expiration Date Visits Requ ested Visits Authorized [id number] Closed 09/22/2018 09/22/2019 1 1 Encounter Details Date Type Department Care Team Description 10/02/2018 Comprehensive Visit Department of Josef Lora Ma ss Index 50.0 To 59.9 Adult (HCC); Urology in [place] Perez Hyperlipidemia Mixed; [place], [address] [place] [address] Diabetes Mellitus Type 2 Hyperglycemia ( HCC); [place], [place] Hypertension Essential Prima ry; 200 [facility] [phone] Carcinoma Renal Cell Left (HCC); [place], [place] [phone] Disorder [id number] (Work) [phone] Social History Tobacco Use Types Packs/Day Years [...] documented as of this encounter Consult Notes Shubham Espinoza M.D. - 10/02/2018 10:00 AM CST HISTORY OF PRESENT ILLNESS Mr. Murphy is a pleasant 48 y.o. male who presents today for renal mass follow up. He was found to have a 3-cm left upper pole renal mass on evaluation for hematuria. Patient underwent biopsy and ablation. 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 He is otherwise doing well. PAST MEDICAL/SURGICAL HISTORY MEDICAL Patient Active Problem List Diagnosis Date Noted ??? Apnea Sleep Obstructive 08/26/2018 ??? Tobacco Use 02/02/2018 ??? Elevated Troponin 01/30/2018 ??? Hyperlipidemia Mixed 04/07/2017 ??? Body Mass Index 50.0 To 59.9 Adult (HCC) 03/14/2017 ??? Carcinoma Renal Cell Left (HCC) 12/12/2015 ??? Diabetes Mellitus Type 2 Hyperglycemia (HCC) 11/08/2015 ??? 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 Eczema 01/09/2015 ??? Hypertension Essential Primary 06/09/2014 ??? Psoriasis 01/26/2013 Past Medical History: Diagnosis Date ??? Asthma NOS ??? Diabetes Mellitus Type 2 (HCC) 11/08/2015 DM2 Uncontrolled ??? Diabetes Mellitus Type 2 Hyperglycemia (HCC) 11/08/2015 DM2 Uncontrolled ??? Gastroesophageal Reflux Disease NOS ??? Hyperlipidemia ??? Hypertension NOS ??? Malignant Neoplasm Of Kidney (HCC) 07/2015 ??? Psoriasis ??? Sleep Apnea ??? Transient Ischemic Attack SURGICAL Past Surgical History: Procedure Laterality Date ??? APPENDECTOMY N/A 10/30/1984 Appendectomy ??? APPENDECTOMY Sep 1983 ??? HERNIA REPAIR 2012? PRIMARY REPAIR OF INCISIONAL HERNIA N/A 05/29/2011 Repair initial incisional or ventral hernia; incarcerated or strangulated.. MEDICATIONS Current Outpatient Prescriptions: ??? ascorbic acid, vitamin C, (vitamin C) 1,000 mg tablet, Take 1 tablet by mouth daily., Disp: , Rfl: ??? aspirin 81 mg capsule, Take 81 mg by mouth daily., Disp: , Rfl: ??? atorvastatin (LIPITOR) 40 mg tablet, Take 1 tablet (40 mg total) by mouth at bedtime., Disp: 90 tablet, Rfl: 3 ??? calcium carbonate-vitamin D3 (CALCIUM+D) 400-133.3 mg-unit tablet, Take by mouth 2 (two) times aday., Disp: , Rfl: ??? cetirizine (ZyrTEC) 10 mg tablet, Zyrtec 10 mg oral tablet PRN, Disp: , Rfl: ??? CINNAMON BARK (CINNAMON ORAL), Take 1 capsule by mouth daily., Disp: , Rfl: ??? flash glucose scanning reader (FREESTYLE RAKEL 14 DAY READER) misc, 11.9 On insulin Rakel 14 dayreader, Disp: 1 each, Rfl: 0 ??? flash glucose sensor (FREESTYLE RAKEL 14 DAY SENSOR) kit, 11.9 Rakel 14 day sensor kit. Change sensor every 14 days, Disp: 6 kit, Rfl: 3 ??? fluticasone (for_FLONASE) 50 mcg/actuation nasal spray, Administer 2 sprays into each nostril asneeded. , Disp: , Rfl: ??? ibuprofen (ADVIL) 200 mg tablet, Take 2 tablets by mouth as needed., Disp: , Rfl: ??? insulin aspart U-100 (NovoLOG Flexpen U-100 Insulin) 100 unit/mL injection, 18 units before eachmeal 3 times daily., Disp: 30 mL, Rfl: 5 ??? insulin glargine (BASAGLAR KWIKPEN U-100 INSULIN) 100 unit/mL (3 mL) injection, Inject 0.3 mL (30 Units total) under the skin at bedtime. (Patient taking differently: Inject 33 Units under the skinat bedtime. ), Disp: 15 mL, Rfl: 2 ??? liraglutide (VICTOZA) 0.6 mg/0.1 mL (18 mg/3 mL) injection, Inject 1.8 mg under the skin daily.,Disp: 27 mL, Rfl: 3 ??? metFORMIN XR (GLUCOPHAGE-XR) 500 mg 24 hr tablet, Take 4 tablets (2,000 mg total) by mouth daily. (Patient taking differently: Take 500 mg by mouth daily. Increase to 2000 total ), Disp: 360 tablet, Rfl: 3 ??? multivitamin capsule, daily., Disp: , Rfl: ??? omeprazole (for_PriLOSEC) 20 mg capsule, Take 20 mg by mouth every morning before breakfast., Disp: , Rfl: ??? ONETOUCH VERIO strips, Test blood glucose 8 times per day, Disp: 720 strip, Rfl: 3 ??? pen needle, diabetic (SURE-FINE PEN NEEDLES) 31 gauge x 5/16 needle, 4 Injection daily., Disp: 100 each, Rfl: 11 ??? valsartan (DIOVAN) 80 mg tablet, Take 1 tablet (80 mg total) by mouth daily., Disp: 90 tablet, Rfl: 3 Current Facility-Administered Medications: ??? glucagon injection 1 mg (GlucaGen), 1 mg, intravenous, Once, Carmen Gallo M.B., B.Ch. ALLERGIES Allergies Allergen Reactions ??? Lisinopril Cough SOCIAL HISTORY Social History Social History ??? Marital status: Single Spouse name: N/A ??? Number of children: N/A ??? Years of education: N/A Occupational History ??? Not on file. Social History Main Topics ??? Smoking status: Current Some Day Smoker Types: Cigars ??? Smokeless tobacco: Never Used Comment: An occasional cigar ??? Alcohol use Yes Comment: Occasionally have a scotch ??? Drug use: No ??? Sexual activity: Yes Partners: Female Other Topics Concern ??? Not on file Social History Narrative Caffeine: 2 cups coffee daily FAMILY HISTORY Family History Problem Relation Age of Onset ??? Diabetes Brother ??? Melanoma Father ??? Diabetes Brother PHYSICAL EXAMINATION There were no vitals taken for this visit. General: NAD Mental status: AAOx3 Psychiatric: appropriate disposition HEENT: NCAT, conjugate gaze Respiratory: non-labored breathing LABS Lab Results Component Value Date NA 140 09/22/2018 K 4.4 09/22/2018 CL 103 09/22/2018 BUN 14 09/22/2018 CO2 30 (H) 02/13/2017 HGB 13.7 09/22/2018 HCT 44.4 09/22/2018 WBC 13.4 (H) 09/22/2018 Lab Results Component Value Date/Time CREATININE 1.03 09/22/2018 11:55 AM CREATININE 1.01 03/20/2018 08:49 AM CREATININE 0.8 12/17/2017 09:05 PM CREATININE 0.93 02/13/2017 10:11 AM CREATININE 0.9 03/13/2016 10:44 AM MICROBIOLOGY/CULTURE DATA Microbiology Results (last 30 days) No results found for the last 720 hours. PATHOLOGY No results found for this or any previous visit (from the past 720 hour(s)). IMAGING AND TESTS No results found. IMPRESSION/REPORT/PLAN #1 Carcinoma Renal Cell Left (HCC) We discussed his creatinine and urinalysis which is within normal limits. Unfortunately the imaging was not performed and we will plan to have that done today or next available. He will need a chest x-ray and a CT renal mass protocol. CAL OFFICE REPRESENTATIVE documented in this encounter Plan of Treatment Upcoming Encounters Date Type Specialty Care Team Description 06/26/2022 Appointment Neurology Preet Landeros M.D . [address] [place] [phone] Bria Suh APRN, C.N.P., M.S.N. [address] [place] [phone] 07/25/2022 Appointment Radiology Preet Landeros M.D . [address] [place] [address] [phone] (Wo rk) documented as of this encounter Results CT Abdomen without and with IV Contrast (10/02/2018 2:05 PM MEDICAL OFFICE REPRESENTATIVE) Anatomical Region Laterality Modality Abdomen, Abdominal RST LOS, Abdominal ARZ LOS, N/A Computed Tomography Abdominal FLA LOS Specimen (Source) Anatomical Collection Method Collection Time Re ceived Time Location / / Volume Laterality 10/02/2018 3:40 PM MEDICAL OFFICE REPRESENTATIVE Impressions 10/02/2018 3:48 PM MEDICAL OFFICE REPRESENTATIVE IMPRESSION: ?? 1. Findings of remodeling/partial resolu tion of post ablation changes involving the left mid kidney. No worrisome findin gs for recurrence. 2. No findings to suggest metastatic dis ease in the abdomen. 3. Where seen, lung bases remain free of nodules. Narrative 10/02/2018 3:48 PM MEDICAL OFFICE REPRESENTATIVE EXAM: ??CT ABDOMEN WITHOUT AND WITH IV [...] the anterior abdominal wall with focal a jonh of soft tissue thickening/scar. Other than the [...] lung bases remain free of nodules. Shubham ALVA CT PROCEDURES DX Chest AP or PA and Lateral 2 Views (10/02/2018 10:54 AM MEDICAL OFFICE REPRESENTATIVE) Anatomical Region Laterality Modality Chest, Thoracic RST LOS, Thoracic ARZ LOS, Thoracic N/A Digital Radiography FLA LOS Specimen (Source) Anatomical Collection Method Collection Time Re ceived Time Location / / Volume Laterality 10/02/2018 11:00 AM MEDICAL OFFICE REPRESENTATIVE Impressions 10/02/2018 11:18 AM MEDICAL OFFICE REPRESENTATIVE IMPRESSION: ??No change since 11/23/2015. Mild left basilar atelectasis or scarring. Benign 3 mm nodule in the righ t base is stable back to at least CT from 08/07/2015. Prominent cardiac fat p ads. Prominent extrapleural fat, left greater than right. Chest otherwise nega tive. Narrative 10/02/2018 11:18 AM MEDICAL OFFICE REPRESENTATIVE EXAM: ??DX CHEST AP OR PA AND LATERAL 2 VIEWS Procedure Note Francisco Javier Armstrong M.D. - 10/02/2018Formattsami g of this note might be different [...] otherwise nega tive. 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 PCP - General 05/30/18 08/10/[address] [phone] documented as of this encounter
--- OUTSIDE RECORDS SUMMARY | 2022-06-23 22:42 | XMS_ITS | Encounter Summary ---
:1970 Author Organization [facility] Address [address] [place] [address] Care Team Providers Name Role Phone Amanda Barrios APRN C.N.PBon Primary Care Provider [phone] Encounter Details Date Type Department Care Team Description 11/05/2018 Abstract Department of Family Medicine in Provider , Historical Luli Rubio n [address] [place], [place] [phone] Social History Tobacco Use Types Packs/Day Years [...] slept in a long term (including now)? Sex Assigned at Date Recorded Male 01/30/2018 9:28 AM CDT documented as of this encounter Plan of Treatment Upcoming Encounters Date Type Specialty Care Team Description 06/26/2022 Appointment Neurology Preet Landeros M.D . [address] [place] [phone] Bria Suh APRN, C.N.P., M.S.N. [address] [place] [phone] 07/25/2022 Appointment Radiology Preet Landeros M.D . [address] [place] [phone] (Wo rk) documented as of this encounter Procedures Procedure Name Priority Date/Time Associated Diagnosis Comme nts BASIC METABOLIC Routine 10/17/2018 6:30 PM Result s for this PANEL, S/P AUTO FINANCE SALES REP procedure are i n the results section. BASIC METABOLIC Routine 10/17/2018 5:30 PM Result s for this PANEL, S/P AUTO FINANCE SALES REP procedure are i n the results section. documented in this encounter Results Basic Metabolic Panel (10/17/2018 6:30 PM AUTO FINANCE SALES REP) P athologist Signature Glucose 96 mg/dL OTHER (SPECIFY IN DENTISTRY PROFESSOR) Specimen (Source) Anatomical Location Collection Method / Collectio n Time Received Time / Laterality Volume Blood (Blood, Venous) Ordering Provider External M.D. LAB BLOOD ADD-ON Performing Organization Address City/State/ZIP Code Phon e Number OTHER (SPECIFY IN DENTISTRY PROFESSOR) OTHER (SPECIFY IN DENTISTRY PROFESSOR) N/A Basic Metabolic Panel (10/17/2018 5:30 PM AUTO FINANCE SALES REP) P athologist Signature Glucose 120 mg/dL OTHER (SPECIFY IN DENTISTRY PROFESSOR) Specimen (Source) Anatomical Location Collection Method / Collectio n Time Received Time / Laterality Volume Blood (Blood, Venous) Ordering Provider External M.D. LAB BLOOD ADD-ON Performing Organization Address City/[facility] Phon e Number OTHER (SPECIFY IN DENTISTRY PROFESSOR) OTHER (SPECIFY IN DENTISTRY PROFESSOR) N/A documented in this encounter Visit Diagnoses Not on filedocumented in this encounter Additional Health Concerns Assessment Noted Time PHQ-9 Depression Total Score: 4 03/23/2018 12:54 PM CD T documented as of this encounter Care Teams Change Release Manager Relationship Specialty Start Date End Date Amanda Barrios, BRET, C.N.P. PCP - General 05/30/18 08/10/19 [address] [place] [phone] documented as of this encounter
--- OUTSIDE RECORDS SUMMARY | 2022-06-23 22:42 | XMS_ITS | Encounter Summary ---
:[address] [facility] Address [address] [place] [address] Care Team Providers Name Role Phone Elsewhere, Pcp Primary Care Provider Unavailable Reason for Visit Reason Comments MARIANNA Nurse Line 05-04-20 Encounter Details Date Type Department Care Team Description 05/04/2020 Clinical Communication Department of Preet Landeros COVI D Nurse Line Neurology in M.D. 05-04-20 [place], [address] [place] [address] [place] [phone] [place], [place] [phone] (Work) [phone] Social History Tobacco Use Types Packs/Day Years [...] this encounter Miscellaneous Notes Telephone Encounter - Zahira Segovia - 05/04/2020 1:31 PM CDT ([facility] and [facility] locations only: If the patient is not having symptoms and is requesting COVID-19 Nasal Swab testing only, use the process listed in the [facility] Patient Requesting COVID PCR Test OTG COVID-19 [place] Patient Requesting COVID PCR Test). In the past 30 days have you had a swab for COVID that tested positive? yes Route reply to: rsstephanie kenneth scheduling Scheduling Contact Number: [phone] documented in this encounter Plan of Treatment Upcoming Encounters Date Type Specialty Care Team Description 06/26/2022 Appointment Neurology Preet Landeros M.D . [address] [place] [phone] Bria Suh APRN, C.N.P., M.S.N. [address] [place] [phone] 07/25/2022 Appointment Radiology Preet Landeros M.D . [address] [place] [phone] (Wo rk) documented as of this encounter Visit Diagnoses Not on filedocumented in this encounter Additional Health Concerns Assessment Noted Time PHQ-9 Depression Total Score: 4 03/23/2018 12:54 PM CD T documented as of this encounter Care Teams Corrections Identification Technician Relationship Specialty Start Date End Date Elsewhere, Pcp PCP - General Family Medicine 08/11/19 documented as of this encounter
--- OUTSIDE RECORDS SUMMARY | 2022-06-23 22:43 | XMS_ITS | Encounter Summary ---
:1970 Author Organization [facility] Address [address] [place] [address] Care Team Providers Name Role Phone Amanda Barrios APRN, C.NBonPBon Primary Care Provider [phone] Reason for Referral Outpatient (Routine) - Closed Specialty Diagnoses / Procedures Referred By Contact Kim cruz To Contact Roz Dillon M.D. [facility] [address] [place] [phone] Referral ID Status Reason Start Date Expiration Date Visits Requ ested Visits Authorized [id number] Closed 06/02/2018 06/02/2019 1 1 Reason for Visit Reason Comments Diabetes Outpatient (Routine) - Closed Specialty Diagnoses / Procedures Referred By Contact Kim cruz To Contact Roz Dillon M.D. [facility] [address] [place] [phone] Referral ID Status Reason Start Date Expiration Date Visits Requ ested Visits Authorized [id number] Closed 03/02/2018 03/02/2019 1 1 Encounter Details Date Type Department Care Team Description 06/02/2018 Clinical Support Department of Roz Pack M .D. [address] [place] [phone] Diabetes Mellitus Type Internal Medicine in Zoë Michaels Jordan EnnisN. [address] [place] [phone] 2 Hyperglycemia (HCC) [place], [place] (Primary Dx) [address] [place] [phone] Social History Tobacco Use Types Packs/Day Years [...] or relatives? How often do you attend orthodoxy or More than 4 times per year 06/02/2022 restorationism services? Do you belong to any clubs or Yes 06/02/2022 organizations such as orthodoxy groups, unions, fraternal or athletic groups, or [...] [place] [facility] [place] (including now)? Sex Assigned at Date Recorded Male 01/30/2018 9:28 AM CDT documented as of this encounter Last Filed Vital Signs Vital Sign Reading Time Taken Comments Blood Pressure 154/81 06/02/2018 10:12 AM CDT Pulse 84 06/02/2018 10:12 AM CDT Temperature - - Respiratory Rate - - Oxygen Saturation - - Inhaled Oxygen Concentration - - Weight 154 kg (338 lb 10 oz) 06/02/2018 10:12 AM CDT Height - - Body Mass Index 56.42 05/29/2018 8:03 AM CDT documented in this encounter Progress Notes Zoë Michaels R.N. - 06/02/2018 12:00 AM CDT SUBJECTIVE CHIEF COMPLAINT/REASON FOR VISIT Followup visit for type 2 diabetes on insulin therapy. Patient is being accompanied by his mother, Taryn. Please CC: Roz Pack M.D. HISTORY OF PRESENT ILLNESS CURRENT DIABETES TREATMENT: Diet and exercise, Oral, Hormonal and Insulin SELF BLOOD GLUCOSE MONITORING: Checks up to 5 times a day. BLOOD GLUCOSE RANGE: Fasting blood sugar is 92 to 149, during the day 88 to 196. HYPOGLYCEMIA: x1 after taking too much NovoLog insulin. PHYSICAL ACTIVITY: Work. PRESENT DIET: Decreased carbs and portions. CURRENT MEDICATIONS Reviewed in EMR 06/02/2018. 1. Metformin 500 mg tabs 2 every day. 2. Victoza 1.8 mg subcu every day. 3. Basaglar insulin 33 units every evening. 4. NovoLog insulin 18 units with his meals. MEDICAL HISTORY Reviewed in EMR 06/02/2018; no changes made. SURGICAL HISTORY Reviewed in EMR 06/02/2018; no changes made. 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 MARITAL STATUS: Single. TOBACCO USE: None. ALCOHOL USE: Rare. OBJECTIVE VITAL SIGNS Weight is 153.6 kg, a 6.6 kg weight loss since 03/02/2018. Pulse 84, blood pressure 154/81. DIAGNOSTICS Lipid profile: 05/27/2018, total cholesterol 134, HDL 41, triglycerides 139, LDL 65. Hemoglobin A1c 6.5%. Urine microalbumin less than 14. ASSESSMENT / PLAN #1 Patient with type 2 diabetes now on Victoza He has lost a total of 6.6 kg of weight since 05/27/2018. His A1c has dropped from 7.4% to 6.5%. I did review his blood glucose levels. The vast majority of his blood glucose levels are now in range. He states he does not want them to be over 150. He did have one hypoglycemic event. This followed him having a very low carb diet and taking his full 18 units of NovoLog insulin. We discussed the seriousness of hypoglycemia and the need to avoid that. I did tell him if he is having a very low carb diet to decrease by half his NovoLog insulin. He is also interesting in continuous glucose sensing. He would like the DexCom. I do feel this would be very beneficial for this gentleman. PLAN OF CARE: 1. No recommended changes in medication. 2. Return in 3 months. BILLING: Total Time: 60 minutes; greater than 75% of that time was spent in counseling. CT CT Job ID: [id number] CC: - - - - Roz Pack M.D. documented in this encounter Plan of Treatment Upcoming Encounters Date Type Specialty Care Team Description 06/26/2022 Appointment Neurology Preet Landeros M.D . [address] [place] [phone] Bria Suh APRN, C.N.P., M.S.N. [address] [place] [phone] 07/25/2022 Appointment Radiology Preet Landeros M.D . [address] [place] [address] [phone] (Wo rk) Scheduled Referrals Name Type Priority Associated Diagnoses Order [facility] Nutrition office Outpatient Referral Routine Expe cted: visit (clinic) 09/01/2018 (Approximate), Expires: 06/02/2021 documented as of this encounter Visit Diagnoses Diagnosis Diabetes Mellitus Type 2 Hyperglycemia ( HCC) - Primary documented in this encounter Additional Health Concerns Assessment Noted Time PHQ-9 Depression Total Score: 4 03/23/2018 12:54 PM CD T documented as of this encounter Care Teams Environmental Engineering Professor Relationship Specialty Start Date End Date Amanda Barrios APRN, C.N.P. PCP - General 05/30/18 08/10/19 [address] [facility] [phone] documented as of this encounter
--- OUTSIDE RECORDS SUMMARY | 2022-06-23 22:43 | XMS_ITS | Encounter Summary ---
:1970 Author Organization [facility] Address [address] [place] [address] Care Team Providers Name Role Phone Amanda Barrios APRN, C.NBonPBon Primary Care Provider [phone] Reason for Visit Reason Comments Diabetes Outpatient (Routine) - Closed Specialty Diagnoses / Procedures Referred By Contact Refer red To Contact Nutrition Roz Pack M.D. [facility] [address] [place] [address] Referral ID Status Reason Start Date Expiration Date Visits Requ ested Visits Authorized [id number] Closed 06/02/2018 06/02/2019 1 1 Encounter Details Date Type Department Care Team Description 09/11/2018 Clinical Support Department of Roz Pack M .D. [address] [place] [phone] Diabetes Mellitus Type Internal Medicine in Zoë Michaels R.N. [address] [place] [address] 2 Hyperglycemia (HCC) [place], [place] (Primary Dx) [address] [place] [address] Social History Tobacco Use Types [...] slept in a group home (including now)? Sex Assigned at Date Recorded Male 01/30/2018 9:28 AM CDT documented as of this encounter Last Filed Vital Signs Vital Sign Reading Time Taken Comments Blood Pressure 141/60 09/11/2018 3:35 PM CONCRETE BLOCK PLANT SUPERVISOR Pulse 79 09/11/2018 3:35 PM CONCRETE BLOCK PLANT SUPERVISOR Temperature - - Respiratory Rate - - Oxygen Saturation - - Inhaled Oxygen Concentration - - Weight 148 kg (325 lb 13.4 oz) 09/11/2018 3:35 PM CONCRETE BLOCK PLANT SUPERVISOR Height - - Body Mass Index 54.35 07/22/2018 10:25 AM CONCRETE BLOCK PLANT SUPERVISOR documented in this encounter Progress Notes Zoë Michaels R.N. - 09/11/2018 2:42 PM CST PATIENT EDUCATION VISIT SUBJECTIVE CHIEF COMPLAINT/REASON FOR VISIT Followup visit for type 2 diabetes. Patient is being accompanied by his girlfriend, Jesi. Please CC: Dr. Gallo, Amanda Barrios APRN, KATELYN HISTORY OF PRESENT ILLNESS CURRENT DIABETES TREATMENT: Diet and exercise, hormonal, on insulin SELF BLOOD GLUCOSE MONITORING: He is checking 5 times a day. BLOOD GLUCOSE RANGE: Fasting blood sugars 84 to 153, usually less than 115, during the day 67 to 175, again usually less than 150, frequently below 100. HYPOGLYCEMIA: x1 PHYSICAL ACTIVITY: Work PRESENT DIET: Decreased carbs and portions CURRENT MEDICATIONS Related To Diabetes: Reviewed EMR 09/11/2018. 1. Metformin 500 mg tabs 2 every day. 2. Victoza 1.8 mg every day. 3. Basaglar insulin 33 units every evening. 4. NovoLog insulin 18 units with meals. MEDICAL HISTORY Reviewed EMR 09/11/2018. No changes made. SURGICAL HISTORY Reviewed EMR 09/11/2018. No changes made. 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 MARITAL STATUS: Single. TOBACCO USE: None. ALCOHOL USE: None. OBJECTIVE VITAL SIGNS Weight is 147.8 kg, a total of a 12.4 kg weight loss. Pulse 79, blood pressure 141/60. DIAGNOSTICS Hemoglobin A1c on 09/04/2018 is 6%. ASSESSMENT / PLAN ASSESSMENT / PLAN #1 Patient with type 2 diabetes on insulin, Victoza and metformin A1c is decreased from 6.5% to 6.0%. The patient is checking his blood glucose levels 5 times a day with the vast majority of them now in range. He has also lost a further 5.8 kg of weight and was congratulated on all of the changes he has made. PLAN OF CARE: 1. No recommended changes in medication. 2. Return in 3 months. Total time spent with patient was 30 minutes, greater than 75% of which was spent in counseling. BILLING: CT CT Job ID: [id number] CC: Mayte Argueta., B.Ch. [facility] [address] [place] [address] Amanda Barrios APRN, C.N.P. [facility] in [address] [address] RETE BLOCK PLANT SUPERVISOR documented in this encounter Plan of Treatment Upcoming Encounters Date Type Specialty Care Team Description 06/26/2022 Appointment Neurology Preet Landeros M.D . [address] [place] [phone] Bria Suh APRN, C.N.P., M.S.N. [address] [place] [phone] 07/25/2022 Appointment Radiology Preet Landeros M.D . [address] [place] [phone] (Wo rk) documented as of this encounter Visit Diagnoses Diagnosis Diabetes Mellitus Type 2 Hyperglycemia ( HCC) - Primary documented in this encounter Additional Health Concerns Assessment Noted Time PHQ-9 Depression Total Score: 4 03/23/2018 12:54 PM CD T documented as of this encounter Care Teams Turbine Assembler Relationship Specialty Start Date End Date Amanda Barrios APRN, C.N.P. PCP - General 05/30/18 08/10/[address] [phone] documented as of this encounter
--- OUTSIDE RECORDS SUMMARY | 2022-06-23 22:43 | XMS_ITS | Encounter Summary ---
:1970 Author Organization [facility] Address [address] [place] [address] Care Team Providers Name Role Phone Roz Pack M.D. Primary Care Provider Encounter Details Date Type Department Care Team Description 04/16/2018 Orders Only Department of Neurology Nany Elder, Apnea Sleep Obstructive in [facility] nadeen Pavon, M.P.H. (Primary Dx) [address] [place], [place] [phone] Social History Tobacco Use Types Packs/Day [...] or relatives? How often do you attend mormonism or More than 4 times per year 06/02/2022 lutheran services? Do you belong to any clubs or Yes 06/02/2022 organizations such as mormonism groups, unions, fraternal or athletic groups, or [...] slept in a nursing home (including now)? Sex Assigned at Date Recorded Male 01/30/2018 9:28 AM CDT documented as of this encounter Plan of Treatment Upcoming Encounters Date Type Specialty Care Team Description 06/26/2022 Appointment Neurology Preet Landeros M.D . [address] [place] [phone] Bria Suh, BRET, C.N.P., M.S.N. [address] [place] [phone] 07/25/2022 Appointment Radiology Preet Landeros M.D . [address] [place] [phone] (Wo rk) documented as of this encounter Visit Diagnoses Diagnosis Apnea Sleep Obstructive - Primary documented in this encounter Additional Health Concerns Assessment Noted Time PHQ-9 Depression Total Score: 4 03/23/2018 12:54 PM CD T documented as of this encounter Care Teams Trim Sawyer Relationship Specialty Start Date End Date Roz Pack M.D. PCP - General Family Medicine 02/25/18 05/29/18 documented as of this encounter
--- OUTSIDE RECORDS SUMMARY | 2022-06-23 22:43 | XMS_ITS | Encounter Summary ---
:1970 Author Organization [facility] Address [address] [place] [address] Care Team Providers Name Role Phone Amanda Barrios APRN, C.N.P. Primary Care Provider [phone] Encounter Details Date Type Department Care Team Description 06/01/2018 Orders Only Division of [place], Diabetes Angy itus Type Endocrinology in Jacque Martinez, 2 Hype rglycemia ([facility]) [place], [place] B.Ch. [address] [facility] [address] [place] [phone] Social History Tobacco Use Types Packs/Day Years [...] place to sleep or slept in a jail (including now)? Sex Assigned at Date Recorded Male 01/30/2018 9:28 AM CDT documented as of this encounter Plan of Treatment Upcoming Encounters Date Type Specialty Care Team Description 06/26/2022 Appointment Neurology Preet Landeros M.D . [address] [place] [phone] Bria Suh APRN, C.N.P., M.S.N. [address] [place] [phone] 07/25/2022 Appointment Radiology Preet Landeros M.D . [address] [place] [address] [phone] (Wo rk) documented as of this encounter Visit Diagnoses Diagnosis Diabetes Mellitus Type 2 Hyperglycemia ( HCC) documented in this encounter Additional Health Concerns Assessment Noted Time PHQ-9 Depression Total Score: 4 03/23/2018 12:54 PM CD T documented as of this encounter Care Teams Powerhouse Mechanic Helper Relationship Specialty Start Date End Date Amanda Barrios APRN, C.N.P. PCP - General 05/30/18 08/10/[address] [phone] (work) documented as of this encounter
--- OUTSIDE RECORDS SUMMARY | 2022-06-23 22:43 | XMS_ITS | Encounter Summary ---
:1970 Author Organization [facility] Address [address] [place] [address] Care Team Providers Name Role Phone Amanda Barrios APRN C.N.P. Primary Care Provider [phone] Reason for Referral Outpatient (Routine) - Closed Specialty Diagnoses / Procedures Referred By Contact Refer red To Contact Nutrition Diagnoses Surgery Bariatric Status Post Trudi Pena [facility] BRET, C.N.P. [address] [place], [place] [phone] Referral ID Status Reason Start Date Expiration Date Visits Requ ested Visits Authorized [id number] Closed 06/22/2018 06/22/2019 1 1 Scheduling Instructions Schedule once monthly visits in July , August, and September utpatient (Routine) - Closed Specialty Diagnoses / Procedures Referred By Contact Kim cruz To Contact Endocrinology Diagnoses Surgery Bariatric Status Post Trudi Pena [facility] BRET, C.N.P. [address] [place], [place] [phone] Referral ID Status Reason Start Date Expiration Date Visits Requ ested Visits Authorized [id number] Closed 06/22/2018 06/22/2019 1 1 Reason for Visit Outpatient (Routine) - Closed Specialty Diagnoses / Procedures Referred By Contact Refer red To Contact Endocrinology Ramya Oneill M.B.B. S. [facility] [address] [place] [phone] Referral ID Status Reason Start Date Expiration Date Visits Requ ested Visits Authorized [id number] Closed 03/23/2018 03/23/2019 1 1 Encounter Details Date Type Department Care Team Description 06/22/2018 Office Visit Division of [place], Surgery Bariatr ic Endocrinology in Trudi Leija APRN, Statu s Post (Primary [place], [place] C.N.P. Dx) [address] [place] [address] 200 [place] [phone] Social History Tobacco Use Types Packs/Day Years [...] or relatives? How often do you attend jainism or More than 4 times per year 06/02/2022 zoroastrianism services? Do you belong to any clubs or Yes 06/02/2022 organizations such as jainism groups, unions, fraternal or athletic groups, or [...] Oxygen Concentration - - Weight 154 kg (339 lb 11.7 oz) 06/22/2018 8:13 AM CDT Height 165.5 cm (5' 5.16) 06/22/2018 8:13 AM CDT Body Mass Index 56.26 06/22/2018 8:13 AM CDT documented in this encounter Progress Notes Trudi Pena APRN, C.N.P. - 06/22/2018 8:00 AM CDT CHIEF COMPLAINT Return visit for evaluation of medically complicated obesity/consideration for bariatric surgery HISTORY OF PRESENT ILLNESS Mr. Murphy is a 48 y.o. who was initially seen by Dr. Ramya Oneill in the nutrition clinic on March. At that time he was interested in pursuing bariatric surgery and continues to be interested. WEIGHT HISTORY Initial weight at consult: 156.8 kg Today's Weight: 154.1 kg Total Weight Loss: 2.7 kg/ 5.94 lbs CURRENT DIETARY HABITS He has been logging all food intake in a journal. He has not been tracking calories specifically, but rather every food that he consumes. He has been consuming 3 consistently says meals per day. He typically does not snack. In reviewing his daily food logs, he has been making rather healthy choices. He also notes that he has been decreasing portion sizes. He has found the behavioral weight managementprogram ([facility]) very helpful and states that it has been a good experience. CURRENT PHYSICAL ACTIVITY HABITS He has been walking for activity but does not track his steps. WEIGHT RELATED MEDICAL COMORBIDITIES Obstructive Sleep Apnea, diagnosed March 2018, CPAP compliant Type 2 Diabetes, taking Victoza, Metformin, Basaglar, and NovoLog, A1c 6.5% Hypertension, taking Diovan Hyperlipidemia, taking Lipitor GERD, taking Omeprazole PSYCHOLOGY Mr. Murphy was seen by Ai Javier LP, for his psychology consult on March 23, 2018. Per Ms. Javier patient had no social or psychological contraindications to bariatric surgery at that time. He started the HEALTH program on April 15, 2018, and has three out of the twelve sessions remaining. ASSESSMENT/PLAN #1 Medically complicated obesity, BMI 56.26 Mr. Murphy has started the requirements of our program and still needs to complete the following: three remaining HEALTH sessions and an additional three months of supervised weight management per insurance requirements . He has learned a great deal from the HEALTH program. He has lost 2.7 kg since starting the program. He instituted lifestyle changes as discussed above. He continues to be interested in bariatric surgery. We reviewed both the Johnathan-en-Y gastric bypass and biliopancreatic duodenal switch today including side effects and weight loss outcomes of both. He is currently undecided as to which surgical procedure he would like to proceed with. He rarely consumes alcoholic beverages and rarely consumes soda or carbonated beverages. He has never had a colonoscopy. He was diagnosed with obstructive sleep apnea in March 2018 and is CPAP compliant. His diabetes has been under good control. He was last seen by on May 29, 2018 for diabetes management. He is currently taking as a goal are insulin, NovoLog insulin, Victoza, and metformin. His A1c has improved significantly over this past year. The A1c was 12.1% in September 2017, 9.7% in December 2017, 7.4% in March 2018, and currently 6.5% in May 2018. Patient is required to complete a total of 6 months of supervised weight management per insurance requirements. He therefore has an additional 3 months of documented weight loss to complete prior to moving for with bariatric surgery. I have arranged for dietitian visits in July, August, and September 2017. He will then follow-up in Endocrinology at that time. Mr. Murphy was happy with the above plan and all questions were answered today. documented in this encounter Plan of Treatment Upcoming Encounters Date Type Specialty Care Team Description 06/26/2022 Appointment Neurology Preet Landeros M.D . [address] [place] [address] Bria Suh APRN, C.N.P., M.S.N. [address] [place] [phone] 07/25/2022 Appointment Radiology Preet Landeros M.D . [address] [place], [place] [phone] (Wo rk) Scheduled Referrals Name Type Priority Associated Order Schedule Diagnoses Endocrinology office Outpatient Referral Routine Surgery Baria tric Expected: visit (clinic) Status Post 09/22/2018 (Approximate), Expires: 06/22/2021 Nutrition - Bariatrics Outpatient Referral Routine Surgery Bar iatric Expected: consult (clinic) Status Post 07/23/2018 (Approximate), Expires: 06/22/2021 documented as of this encounter Visit Diagnoses Diagnosis Surgery Bariatric Status Post - Primary documented in this encounter Additional Health Concerns Assessment Noted Time PHQ-9 Depression Total Score: 4 03/23/2018 12:54 PM CD T documented as of this encounter Care Teams Pinsetter Mechanic Helper Relationship Specialty Start Date End Date Amanda Barrios APRN, C.N.P. PCP - General 05/30/18 08/10/19 [address] [place] [phone] documented as of this encounter
--- OUTSIDE RECORDS SUMMARY | 2022-06-23 22:43 | XMS_ITS | Encounter Summary ---
:1970 Author Organization [facility] Address [address] [place] [address] Care Team Providers Name Role Phone Roz Pack M.D. Primary Care Provider Reason for Referral Outpatient (Routine) - Closed Specialty Diagnoses / Procedures Referred By Contact Refer red To Contact Orthopedic Surgery Diagnoses Pain Ankle Left Roz Pack M.D. [facility] [address] [place] [phone] Referral ID Status Reason Start Date Expiration Date Visits Requ ested Visits Authorized [id number] Closed 04/20/2018 04/20/2019 1 1 Scheduling Instructions Please schedule with Dr. Ureña Reason for Visit Reason Comments Follow-up from urgent care in [place]. x ray of left ankle Encounter Details Date Type Department Care Team Description 04/20/2018 Office Visit Department of [facility] Roz Pack Pain A nkle Left Juwan Jacinto M.D. (Primary Dx) Clinic, in [place] [address] [address] [place], [place] [phone] (Work) [phone] Social History Tobacco Use Types Packs/Day Years [...] More than 4 times per year 06/02/2022 restorationist services? Do you belong to any clubs [...] or slept in a fdc (including now)? Sex Assigned at Date Recorded Male 01/30/2018 9:28 AM CDT documented as of this encounter Last Filed Vital Signs Vital Sign Reading Time Taken Comments Blood Pressure 132/72 04/20/2018 3:11 PM CDT Pulse 76 04/20/2018 3:11 PM CDT Temperature 36.9 ??C (98.4 ??F) 04/20/2018 3:11 PM CDT Respiratory Rate 12 04/20/2018 3:11 PM CDT Oxygen Saturation - - Inhaled Oxygen Concentration - - Weight 156 kg (343 lb 11.2 oz) 04/20/2018 3:11 PM CDT Height - - Body Mass Index 57.19 03/23/2018 2:37 PM CDT documented in this encounter Patient Instructions Patient InstructionsRoz Pack M.D. - 04/20/2018 3:00 PM CDT 1. Pain Ankle Left: concerning for possible fracture. Xray done at outside facility showed there is 6 mm ossicle in the lateral ligamentous region. Indeterminate but suspected to be chronic rather related to an acute avulsion fracture. Will do trial of CAM boot -Orthopedic referral - Orthopedic Surgery - Sports non surgical consult (clinic); Future documented in this encounter Progress Notes Roz Pack M.D. - 04/20/2018 3:00 PM CDT SUBJECTIVE: Paul Murphy is a 48 y.o. male who presents for worsening left ankle pain for the past 2 weeks. Patient describes the pain as sharp/stabbing pain in the left ankle. Injury: None. Patient reached down to grab something from the floor and felt snapping. He heard a pop in the left ankle pain. He had immediate pain in the left ankle and swelling of the ankle. Patient was seen at [place] urgent this Friday and had xray which showed medial soft tissue swelling is present. There is a 6 mm ossicle in the lateral ligamentous region. This is age indeterminate but suspected to be chronic rather than related to an acute avulsion fracture. Rating of Pain: 9/10 at worse Pain is better with: The patient reports that the pain is relieved by rest. Pain is worse with: Walking, movements and prolong standing Treatment so far consists of: bracing and ibuprofen Associated Features: Numbness and tingling in the left foot Prior history of related problems: None Past Medical History: Diagnosis Date ??? Asthma [...] incisional or ventral hernia; incarcerated or strangulated.. Social History Social History ??? Marital status: [...] History Narrative Caffeine: 2 cups coffee daily Family History Problem Relation Age of Onset ??? Diabetes Brother ??? Melanoma Father ??? Diabetes Brother Patient's past medical, surgical, social and family histories reviewed. REVIEW OF SYSTEMS: CONSTITUTIONAL:NEGATIVE for fever, chills, change in weight INTEGUMENTARY/SKIN: NEGATIVE for worrisome rashes, moles or lesions MUSCULOSKELETAL:See HPI above NEURO: NEGATIVE for weakness, dizziness or paresthesias BP 132/72 (BP Location: Left arm, Patient Position: Sitting, Cuff Size: Large) Pulse 76 Temp 36.9 ??C (Temporal) Resp 12 Wt (!) 155.9 kg BMI 57.19 kg/m?? EXAM: GENERAL APPEARANCE: healthy, alert and no distress GAIT: NORMAL SKIN: no suspicious lesions or rashes NEURO: Normal strength and tone, mentation intact and speech normal PSYCH: mentation appears normal and affect normal/bright MUSCULOSKELETAL: Ankle Exam: severe tenderness over the medial malleolus moderate effusion noted over the medial malleolus ROM is limited due to pain X-RAY INTERPRETATION: showed medial soft tissue swelling is present. There is a 6 mm ossicle in the lateral ligamentous region. This is age indeterminate but suspected to be chronic rather than related to an acute avulsion fracture. ASSESSMENT/PLAN Diagnosis Plan 1. Pain Ankle Left Orthopedic Surgery - Sports non surgical consult (clinic) Patient Instructions 1. Pain Ankle Left: concerning for possible occult fracture. Xray done at outside facility showed there is 6 mm ossicle in the lateral ligamentous region. Indeterminate but suspected to be chronic rather related to an acute avulsion fracture. Will do trial of CAM boot -Orthopedic referral for further evaluation and care. -Letter to work was provided. - Orthopedic Surgery - Sports non surgical consult (clinic); Future A total of 15 minutes were spent [id number] with the patient during this encounter and 10 minutes were spent on counseling, discussing the plan and coordination of care. Star Callahan [facility] Fermenter Operator Hose Inspector Department of Family Medicine documented in this encounter Plan of Treatment Upcoming Encounters Date Type Specialty Care Team Description 06/26/2022 Appointment Neurology Preet Landeros M.D . [address] [place] [phone] Bria Suh APRN C.N.P., M.S.N. [address] [place] [phone] 07/25/2022 Appointment Radiology Preet Landeros M.D . [address] [place], [place] [phone] (Wo rk) Scheduled Referrals Name Type Priority Associated Order Schedule Diagnoses Orthopedic Surgery - Outpatient Referral Routine Pain Ankle Le ft Expected: Sports non surgical 04/20/20 18 consult (clinic) (Approximat e), Expires: 04/20/2021 documented as of this encounter Visit Diagnoses Diagnosis Pain Ankle Left - Primary documented in this encounter Additional Health Concerns Assessment Noted Time PHQ-9 Depression Total Score: 4 03/23/2018 12:54 PM CD T documented as of this encounter Care Teams Guest Experience Representative Relationship Specialty Start Date End Date Roz Pack M.D. PCP - General Family Medicine 02/25/18 05/29/18 documented as of this encounter
--- OUTSIDE RECORDS SUMMARY | 2022-06-23 22:43 | XMS_ITS | Encounter Summary ---
:1970 Author Organization [facility] Address [address] [place] [address] Care Team Providers Name Role Phone Roz Pack M.D. Primary Care Provider Reason for Visit Reason Comments Diabetic Eye Exam Outpatient (Routine) - Closed Specialty Diagnoses / Procedures Referred By Contact Refer red To Contact Ophthalmology Diagnoses Diabetes Mellitus Type 2 Hypoglycemia Without Coma (HCC) Carmen Gallo [facility] Jacque Mckeon, B.. [address] [place] [address] Referral ID Status Reason Start Date Expiration Date Visits V isits Requested Authorized [id number] Closed Specialty 02/20/2018 02/20/2019 1 1 Services Required Encounter Details Date Type Department Care Team Description 05/11/2018 Comprehensive Visit Department of Mark Chapa (Primary Dx); Ophthalmology in Jasbir Rivera M.D. Diabetes Mellitus Type 2 Hypoglycemia Wi thout Coma (HCC) [place], [place] [address] [place], [place] [phone] Social History Tobacco Use Types Packs/Day [...] More than 4 times per year 06/02/2022 shinto services? Do you belong to any clubs [...] or slept in a snf (including now)? Sex Assigned at Date Recorded Male 01/30/2018 9:28 AM CDT documented as of this encounter Last Filed Vital Signs Vital Sign Reading Time Taken Comments Blood Pressure 122/54 05/11/2018 2:11 PM CDT Pulse 82 05/11/2018 2:09 PM CDT Temperature - - Respiratory Rate - - Oxygen Saturation - - Inhaled Oxygen Concentration - - Weight - - Height - - Body Mass Index - - documented in this encounter Progress Notes Mark Chapa M.D. - 05/11/2018 2:15 PM CDT Paul Murphy was seen today for Diabetic Eye Exam #1 Diabetes Mellitus Type 2 Hypoglycemia Without Coma (HCC) #2 Presbyopia #1 No diabetic retinopathy or macular edema #2 New glasses with increased bifocal add RTO 1 year documented in this encounter Plan of Treatment Upcoming Encounters Date Type Specialty Care Team Description 06/26/2022 Appointment Neurology Preet Landeros M.D . [address] [place] [phone] Bria Suh APRN, C.N.P., M.S.N. [address] [place] [phone] 07/25/2022 Appointment Radiology Preet Landeros M.D . [address] [place] [address] [phone] (Wo rk) documented as of this encounter Visit Diagnoses Diagnosis Presbyopia - Primary Diabetes Mellitus Type 2 Hypoglycemia Wi thout Coma (HCC) documented in this encounter Additional Health Concerns Assessment Noted Time PHQ-9 Depression Total Score: 4 03/23/2018 12:54 PM CD T documented as of this encounter Care Teams Outsole Rounder Relationship Specialty Start Date End Date Roz Pack M.D. PCP - General Family Medicine 02/25/18 05/29/18 documented as of this encounter
--- OUTSIDE RECORDS SUMMARY | 2022-06-23 22:43 | XMS_ITS | Encounter Summary ---
:1970 Author Organization [facility] Address [address] [place] [address] Care Team Providers Name Role Phone Amanda Barrios APRN, C.N.P. Primary Care Provider [phone] Reason for Visit Reason Comments Med Refill Encounter Details Date Type Department Care Team Description 07/17/2018 Refill Department of Family Medicine, Mayda Barrios APRN, Med Refill [facility], [place], [place] [address] [phone] [place] [address] [phone] Social History Tobacco Use Types Packs/Day Years [...] or slept in a fci (including now)? Sex Assigned at Date Recorded Male 01/30/2018 9:28 AM CDT documented as of this encounter Miscellaneous Notes Telephone Encounter - Debo Joe LBonP.N. - 07/20/2018 8:49 AM DIGITAL PRODUCTION OPERATOR SUBJECTIVE CHIEF COMPLAINT / REASON FOR CALL Med Refill Patient is requesting the following information: Refill on Medication. PLAN The following information was provided : Rx was completed. Information: not applicable The following references were used: provider Amanda Barrios CNP TAL PRODUCTION OPERATOR documented in this encounter Plan of Treatment Upcoming Encounters Date Type Specialty Care Team Description 06/26/2022 Appointment Neurology Preet Landeros M.D . [address] [place] [phone] Bria Suh APRN, C.N.P., M.S.N. [address] [place] [phone] 07/25/2022 Appointment Radiology Preet Landeros M.D . 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 PCP - General 05/30/18 08/10/19 [address] [place] [phone] documented as of this encounter
--- OUTSIDE RECORDS SUMMARY | 2022-06-23 22:43 | XMS_ITS | Encounter Summary ---
:1970 Author Organization [facility] Address [address] [place] [address] Care Team Providers Name Role Phone Roz Pack M.D. Primary Care Provider Reason for Visit Reason Comments Injury DOI 04/05/18 left ankle fract ure Injury Pain Fracture Outpatient (Routine) - Closed Specialty Diagnoses / Procedures Referred By Contact Refer red To Contact Orthopedic Surgery Diagnoses Pain Ankle Left Roz Pack M.D. [facility] Region [address] [place] [phone] Referral ID Status Reason Start Date Expiration Date Visits Requ ested Visits Authorized [id number] Closed 04/20/2018 04/20/2019 1 1 Encounter Details Date Type Department Care Team Description 04/21/2018 Comprehensive Visit Department of Zay Ureña Sprai n Ankle Initial Left (Primary Dx); Orthopedic Surgery M.DBon Pain Ankle Left in [place], [address] [facility] [address] [place] [phone] Social History Tobacco Use Types Packs/Day Years [...] or relatives? How often do you attend protestant or More than 4 times per year 06/02/2022 jew services? Do you belong to any clubs or Yes 06/02/2022 organizations such as protestant groups, unions, fraternal or athletic groups, or [...] Sign Reading Time Taken Comments Blood Pressure 130/70 04/21/2018 1:31 PM CDT Pulse 72 04/21/2018 1:31 PM CDT Temperature - - Respiratory Rate 20 04/21/2018 1:31 PM CDT Oxygen Saturation - - Inhaled Oxygen Concentration - - Weight - - Height - - Body Mass Index - - documented in this encounter Patient Instructions Patient InstructionsSheri Real, Venu.P.N. - 04/21/2018 1:30 PM CDT The patient has been informed of other medical supply locations in this immediate area. The patient has been fitted large left airsport ankle brace. Instructions were given on the proper care and usageof the product with the patient verbalizing understanding of the instructions. [facility] return and warranty policy was given and reviewed by the patient. documented in this encounter Consult Notes Zay Ureña M.D. - 04/21/2018 1:30 PM CDT Pain reported: Site 1 Pain Score: 8, Pain Location: Ankle, Pain Orientation: Left, Pain Descriptors:Sharp, Shooting, Pain Frequency: Intermittent, (04/21/18 1329 : Sheri Real L.P.N.) REASON FOR CONSULT Paul Murphy is a 48 y.o. male who presents for evaluation of Injury, Pain, and Fracture of the Left Ankle and Injury (DOI 04/05/18 left ankle fracture) and is under the care of Roz Pack M.D.. HISTORY OF PRESENT ILLNESS This is a 48-year-old man who injured his left ankle about 2 weeks ago. He was just bending forward to pick something up and felt a snap or a popping sensation in the ankle. It was not until a couple of days later that he began to notice pain and swelling in the ankle. Since then the pain has been intermittent but at times quite severe. He has been taking ibuprofen and has had some massage treatmentsfor it. He did have x-rays done at the [facility] emergency room recently and we have those to review. 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 APPENDECTOMY N/A 10/30/1984 Appendectomy ??? APPENDECTOMY Sep 1983 ??? HERNIA REPAIR 2012? PRIMARY REPAIR OF INCISIONAL HERNIA N/A 05/29/2011 Repair initial incisional or ventral hernia; incarcerated or strangulated.. Tobacco history is History Smoking Status ??? Current Some Day Smoker ??? Types: Cigars Smokeless Tobacco ??? Never Used Comment: An occasional cigar . The following portions of the patient's history were reviewed and updated as appropriate: allergies,current medications, family history, medical history, social history, surgical history and problem list. REVIEW OF SYSTEMS All other systems reviewed and are negative. OBJECTIVE PHYSICAL EXAM Ortho Exam The patient is a very pleasant cooperative gentleman he is super obese with a BMI well over 50. He is in no acute distress. His left ankle has moderate swelling primarily in the lateral aspect. He has tenderness in the anterior and lateral ankle ligaments. He has very minimal tenderness medially. There is no laxity with varus or valgus stress of the ankle and talar drawer test is negative. His skin is in good condition his motor and sensory exam is intact. DIAGNOSTICS INR Date Value Ref Range Status 12/07/2015 1.0 0.8 - 1.2 Final Hemoglobin A1c, B Date Value Ref Range Status 03/20/2018 7.4 (H) 4.2 - 5.6 % Final Comment: Hemoglobin A1c values greater than or equal to 6.5 percent are diagnostic for diabetes mellitus. Diagnosis should be confirmed by repeat testing. In diabetic patients, HbA1c goals should be discussed with healthcare provider. IMAGING I did review his x-rays which show some minor degenerative changes in the ankle and in the midfoot. ASSESSMENT / PLAN #1 Pain Ankle Left Ankle sprain left. Recommended conservative care with rest ice elevation and compression and oral NSAIDs. Work restrictions were given. He will follow up in a month if he is having further problems. documented in this encounter Plan of Treatment Upcoming Encounters Date Type Specialty Care Team Description 06/26/2022 Appointment Neurology Preet Landeros M.D . [address] [place] [phone] Bria Suh APRN, C.N.P., M.S.N. [address] [place] [phone] 07/25/2022 Appointment Radiology Preet Landeros M.D . [address] [place] [address] [phone] (Wo rk) documented as of this encounter Visit Diagnoses Diagnosis Sprain Ankle Initial Left - Primary Pain Ankle Left documented in this encounter Additional Health Concerns Assessment Noted Time PHQ-9 Depression Total Score: 4 03/23/2018 12:54 PM CD T documented as of this encounter Care Teams Bank Clerk Relationship Specialty Start Date End Date Roz Pack M.D. PCP - General Family Medicine 02/25/18 05/29/18 documented as of this encounter
--- OUTSIDE RECORDS SUMMARY | 2022-06-23 22:43 | XMS_ITS | Encounter Summary ---
:1970 Author Organization [facility] Address [address] [place] [address] Care Team Providers Name Role Phone Roz Pack M.D. Primary Care Provider Reason for Referral Outpatient (Routine) - Closed Specialty Diagnoses / Procedures Referred By Contact Refer red To Contact Endocrinology Carmen Gallo [facility] Lucille Santillan, B.Ch. [address] [place] [phone] Referral ID Status Reason Start Date Expiration Date Visits Requ ested Visits Authorized [id number] Closed 05/29/2018 05/29/2019 1 1 Reason for Visit Reason Comments Diabetes Mellitus Recheck. Outpatient (Routine) - Closed Specialty Diagnoses / Procedures Referred By Contact Refer red To Contact Endocrinology Carmen Gallo [facility] [place] [facility] M.B., B.Ch. [address] [place] [phone] Referral ID Status Reason Start Date Expiration Date Visits Requ ested Visits Authorized [id number] Closed 02/20/2018 02/20/2019 1 1 Encounter Details Date Type Department Care Team Description 05/29/2018 Office Visit Department of Jamie Gallo Endocrinology in Jacque Martinez, Type 2 (HCC) [place], [place] (Primary Dx) [address] [place] [address] [place], [place] [phone] Social History Tobacco Use Types Packs/Day Years [...] More than 4 times per year 06/02/2022 denominational services? Do you belong to any clubs [...] or slept in a alf (including now)? Sex Assigned at Date Recorded Male 01/30/2018 9:28 AM CDT documented as of this encounter Last Filed Vital Signs Vital Sign Reading Time Taken Comments Blood Pressure 132/82 05/29/2018 10:50 AM CDT Pulse 84 05/29/2018 10:50 AM CDT Temperature - - Respiratory Rate - - Oxygen Saturation - - Inhaled Oxygen Concentration - - Weight 154 kg (339 lb 4.6 oz) 05/29/2018 10:50 AM CDT Height - - Body Mass Index 56.53 05/29/2018 8:03 AM CDT documented in this encounter Progress Notes Carmen Gallo M.B., B.. - 05/29/2018 12:00 AM CDT SUBJECTIVE CHIEF COMPLAINT/REASON FOR VISIT Followup of type 2 diabetes and medically complicated obesity. HISTORY OF PRESENT ILLNESS Mr. Murphy is a pleasant 48-year-old gentleman who I initially saw in February of 2018. He has a background history of type 2 diabetes since 1999, in addition to medically complicated obesity. Since our last visit, he has had a remarkable reduction in his A1c, from 12.1% down to 6.5%. Changes he has made include addition of metformin and he has been able to get up to 1000 mg per day. Beyond this, he develops diarrhea. He also started Victoza, currently on 1.2 mg per day and has had a weight loss of approximately 10 kg over 6 months. He has also been followed with Bariatric Psychology in [place] and has been having weekly meetings to counteract excess caloric intake. He has been able to discontinue al l snacks. He notes a substantial improvement in how he feels and his glucoses are almost always within range. He does have periodic low blood glucose, particularly prior to supper with the initiation of Victoza and reduced caloric intake. He is working on reducing his NovoLog to counteract this. He has not had any nocturnal hypoglycemia. His current insulin regimen is Basaglar 33 units daily with NovoLog 16 to 18 units with meals. COMPLICATIONS: Eyes - He visited Ophthalmology last month and has no diabetic retinopathy. Renal - his microalbumin screen, previously positive, is now undetectable. He uses an ARB. Normal creatinine. Neuropathy - negative. Macrovascular - he had a stress test this month which was negative for ischemia. He has dyslipidemiaon Lipitor 40 mg per day. Lipid profile this month shows a total cholesterol of 134, triglycerides 139, HDL 41, and LDL of 65. His blood pressure today is 132/82. He was also diagnosed with severe obstructive sleep apnea and is now utilizing CPAP. He is sleeping much better and feels generally improved. ASSESSMENT / PLAN #1 Type 2 diabetes, controlled #2 Medically complicated obesity I congratulated Mr. Murphy with the excellent progress he has made over the last few months. We planto continue with his current treatment regimen. However, discussed that he may need to continue to cut back on his insulin with the weight loss and reduced caloric intake. Also recommended increasing his Victoza to 1.8 mg per day to further aid with weight loss. He will continue to meet with the bariatric surgery group and is still considering having surgery in the future. He is up to date with all screening. We will plan to see him back in [address] Job ID: [id number]/imx documented in this encounter Plan of Treatment Upcoming Encounters Date Type Specialty Care Team Description 06/26/2022 Appointment Neurology Preet Landeros M.D . [address] [place] [phone] Bria Suh APRN, C.N.P., M.S.N. [address] [place] [phone] 07/25/2022 Appointment Radiology Preet Landeros M.D . [address] [place] [address] [phone] (Wo rk) Scheduled Referrals Name Type Priority Associated Order Schedule Diagnoses Endocrinology office Outpatient Referral Routine Expected: visit (clinic) 08/28/2018 (Approximate), Expires: 05/29/2021 documented as of this encounter Results (ABNORMAL) Hemoglobin A1c (09/04/2018 9:34 AM CASING OPERATOR) P athologist Signature Hemoglobin A1c, 6.0 (H) 4.2 - 5.6 09/04/2018 [facility] B % 10:52 AM [facility] Comment: Hemoglobin A1c values of 5.7-6.4 percent indicate an increased risk for developing diabetes m daniela. In diabetic patients, HbA1c goals should be discussed with healthcare provider. Specimen Anatomical Collection Method Collection Time Receive d Time (Source) Location / / Volume Laterality Blood (Blood, 09/04/2018 9:34 AM 09/04/20 18 Venous) CASING OPERATOR 10:27 AM CASING OPERATOR Carmen Santillan, B.Ch. LAB BLOOD ADD-ON Performing Organization Address City/State/ZIP Code Phon e Number [facility] [address] [place] [address] LAB documented in this encounter Visit Diagnoses Diagnosis Diabetes Mellitus Type 2 (HCC) - Primary documented in this encounter Additional Health Concerns Assessment Noted Time PHQ-9 Depression Total Score: 4 03/23/2018 12:54 PM CD T documented as of this encounter Care Teams Behavioral Sciences Instructor Relationship Specialty Start Date End Date Roz Pack M.D. PCP - General Family Medicine 02/25/18 05/29/18 documented as of this encounter
--- OUTSIDE RECORDS SUMMARY | 2022-06-23 22:43 | XMS_ITS | Encounter Summary ---
:1970 Author Organization [facility] Address [address] [place] [address] Care Team Providers Name Role Phone Amanda Barrios APRN, C.N.P. 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 [facility] [address] [place], [place] [address] Referral ID Status Reason Start Date Expiration Date Visits Requ ested Visits Authorized [id number] Closed 09/22/2018 09/22/2019 1 1 LY NURSE Reason for Visit Reason Comments Other yesi consult Outpatient (Routine) - Closed Specialty Diagnoses / Procedures Referred By Contact Refer red To Contact Endocrinology Diagnoses Surgery Bariatric Status Post [facility] [address] [place] [phone] Referral ID Status Reason Start Date Expiration Date Visits Requ ested Visits Authorized [id number] Closed 06/22/2018 06/22/2019 1 1 Encounter Details Date Type Department Care Team Description 09/22/2018 Office Visit Division of Vitor Velez Body Mass In dex 50.0 To 59.9 Adult (HCC) (Primary Dx); Endocrinology in S, M.D. Surgery Bariatric Status Post; [place], [place] [address] [facility] Hyperlipidemia Mixed; [address] [place], [place] Diabetes Mellitus Type 2 Hyp erglycemia (HCC); [place] [address] Hypertension Essential Primary; [id number] Carcinoma Renal Cell Left (H CC) Social History Tobacco Use Types Packs/Day Years [...] or slept in a half-way (including now)? Sex Assigned at Date Recorded Male 01/30/2018 9:28 AM CDT documented as of this encounter Progress Notes Vitor Velez M.D. - 09/22/2018 11:00 AM CST SUBJECTIVE REASON FOR VISIT/CHIEF COMPLAINT Return visit prior to moving forward with bariatric surgery. HISTORY OF PRESENT ILLNESS Mr. Paul Murphy is a 48 y.o. male with medical history that is significant for renal cell carcinoma, eczema, psoriasis, as well as obesity complicated by type 2 diabetes, dyslipidemia, hypertension, and gastroesophageal reflux disease. He originally met with Dr. Oneill on March 23, 2018 in an effort to pursue bariatric surgery. He also met with our psychology colleagues that day and they felt there were no psychological contraindications to moving ahead with bariatric surgery. They did recommend participation in 12 weeks of cognitive behavior therapy. He subsequently visited with 1 of my endocrine colleagues on June 22. At that point it was notedthat his insurance required 6 months of monthly visits focusing on medically supervised weight loss prior to bariatric surgery. He finishes those this month. Through this program, he worked on modifying his diet intensively leading to a dramatic improvement in terms of his diabetes. In fact his A1c was 12.1% in September of 2017 and has come down to a level of 6.0% on September 04, 2018. The following portions of the patient's history were reviewed and updated as appropriate: allergies,current medications, family history, medical history, social history, surgical history and problem list. OBJECTIVE VITALS There were no vitals taken for this visit. PHYSICAL EXAM Constitutional: He appears well-nourished. No distress. HENT: Head: Atraumatic. Eyes: Conjunctivae are normal. Cardiovascular: Normal rate. Pulmonary/Chest: Effort normal and breath sounds normal. Abdominal: Soft. Central adiposity. Noted midline incision from previous surgery. Hernia repair with use of possible mesh Neurological: He is alert. Psychiatric: He has a normal mood and affect. DIAGNOSTICS Labs: No results found for this or any previous visit (from the past 24 hour(s)). A1c is notable at 6%. Radiology: No results found. ASSESSMENT / PLAN #1 Surgery Bariatric Status Post #2 Body Mass Index 50.0 To 59.9 Adult (HCC) #3 Hyperlipidemia Mixed #4 Diabetes Mellitus Type 2 Hyperglycemia (HCC) #5 Hypertension Essential Primary #6 Carcinoma Renal Cell Left (HCC) Currently, Mr. Murphy presents to us to move ahead with bariatric surgery. He has done a great job in terms of lifestyle modifications producing significant weight loss. He also has had a dramatic improvement in some of his cor morbidities related to obesity. At this point he feels that he has completed the requirements of his insurance to progress with bariatric surgery. Based on this will have himmeet with our surgery colleagues to discuss options for surgery. He has had a hernia repair and thismay require an open operation. I discussed this with him briefly so he was aware. We also discussed postoperative care and follow-up requirements. We also reviewed dietary progression after bariatric surgery and the importance of compliance. He remains compliant with his CPAP. He also denies any cardiac history and notes that his exercise tolerance currently is approximately 1 mi. He is also able to climb multiple flights of stairs withoutany chest pain or shortness of breath. He feels that during this year his exercise tolerance has increased dramatically. Will place appointment to meet with our surgery colleagues. I have also placed a consultation with our Urology colleagues. He last met with them more than 2 years ago and they recommended a 1 year follow-up for his renal cell carcinoma. Will request their guidance regarding his ability to move forwardwith bariatric surgery from a renal carcinoma standpoint. Previous notes indicated no evidence of recurrence. LY NURSE documented in this encounter Plan of Treatment Upcoming Encounters Date Type Specialty Care Team Description 06/26/2022 Appointment Neurology Preet Landeros M.D . [address] [place] [phone] Bria Suh APRN, C.N.P., M.S.N. [address] [place] [phone] 07/25/2022 Appointment Radiology Preet Landeros M.D . 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) documented as of this encounter Results Urinalysis with Microscopic (09/22/2018 2:07 PM FAMILY NURSE) [facility] gist Method Time Signature Source Midstream 09/22/2018 [facility] 2:07 PM FAMILY NURSE [place] Appearance Normal Normal 09/22/2018 [facility] 2:38 PM [facility] Osmolality, U 663 150 - 1150 09/22/2018 [facility] mOsm/kg 3:13 PM [facility] pH, U 6.7 4.5 - 8.0 09/22/2018 [facility] 3:13 PM [facility] Comment: ----ADDITIONAL INFORMATION---- This test was developed and its performa nce characteristics determined by [facility] in a manner co nsistent with CLIA requirements. This test has not bee n cleared or approved by the U.S. Food and Drug Admin istration. Glucose 10 0 - 15 mg/dL 09/22/2018 2:38 PM [facility] [place] Protein, U 13 <26 mg/dL 09/22/2018 2:38 PM [facility] Comment: ----ADDITIONAL INFORMATION---- On 03/11/2017 the total protein assay me thod changed resulting in approximately a 15% increase in prote in values. Protein/Osmolality 0.20 <0.42 Ratio 09/22/2018 3:13 PM [facility] [place] Comment: ----ADDITIONAL INFORMATION---- On 03/11/2017 the total protein assay me thod changed resulting in approximately a 15% increase in prote in values. Predicted 24 Hr 199 mg/24 h 09/22/2018 3:13 PM [facility] Protein [facility] Predicted Range 63-628 mg/24 h 09/22/2018 3:13 PM [facility] Hemoglobin, QL Negative Negative 09/22/2018 3:07 PM [facility] Specimen Anatomical Collection Method Collection Time Receive d Time (Source) Location / / Volume Laterality Urine (Urine, 09/22/2018 2:07 PM 09/22/19 19 2:07 Clean Catch) FAMILY NURSE PM FAMILY NURSE Vitor Velez M.D. LAB URINE ORDERABLES Performing Organization Address [facility] Code Phon e Number [facility] LABORATORIES - [address] [place] [address] [facility] Calcium, Total (09/22/2018 11:55 AM FAMILY NURSE) P athologist Signature Calcium, 9.3 8.6 - 10.0 09/22/2018 [facility] Total, S mg/dL 12:53 PM FAMILY NURSE LABORATORIES - [facility] Specimen Anatomical Collection Method Collection Time Receive d Time (Source) Location / / Volume Laterality Blood (Blood, 09/22/2018 11:55 09/22/2018 Venous) AM FAMILY NURSE 12:17 PM FAMILY NURSE Vitor Velez M.D. LAB BLOOD ADD-ON Performing Organization Address City/[facility] Phon e Number [facility] LABORATORIES - [address] [address] [facility] ALT (Alanine Aminotransferase) (09/22/2018 11:55 AM FAMILY NURSE) [facility] Method Time Signature Alanine 25 7 - 55 09/22/2018 [facility] Aminotransferase U/L 12:53 PM LABORATORIES - (ALT), S [facility] Specimen Anatomical Collection Method Collection Time Receive d Time (Source) Location / / Volume Laterality Blood (Blood, 09/22/2018 11:55 09/22/2018 Venous) AM FAMILY NURSE 12:17 PM FAMILY NURSE Vitor Velez M.D. LAB BLOOD ADD-ON Performing Organization Address City/[facility] Code Phon e Number [facility] LABORATORIES - [address] [place] [address] [facility] AST (Aspartate Aminotransferase) (09/22/2018 11:55 AM FAMILY NURSE) [facility] Method Time Signature Aspartate 20 8 - 48 09/22/2018 [facility] Aminotransferase U/L 12:53 PM LABORATORIES - (AST), S [facility] Specimen Anatomical Collection Method Collection Time Receive d Time (Source) Location / / Volume Laterality Blood (Blood, 09/22/2018 11:55 09/22/2018 Venous) AM FAMILY NURSE 12:17 PM FAMILY NURSE Vitor Velez M.D. LAB BLOOD ADD-ON Performing Organization Address City/State/ZIP Code Phon e Number [facility] LABORATORIES - [address] [place], [place] [address] [facility] Creatinine with Estimated GFR (09/22/2018 11:55 AM FAMILY NURSE) Analysis Performed At Patho logist Time Signature Creatinine 1.03 0.74 - 09/22/2018 [facility] 1.35 mg/dL 12:53 PM FAMILY NURSE LABORATORIES - [facility] eGFR-Non 85 >=60 09/22/2018 [facility] Black/ mL/min/BSA 12:53 PM FAMILY NURSE LABORATORIES - [facility] Comment: ----ADDITIONAL INFORMATION---- Estimated GFR calculated using the 2009 CKD_EPI creatinine equation. eGFR-Black/ >90 >=60 mL/min/BSA 09/22/2018 12:5 3 [facility] [place] FAMILY NURSE LABORATORIES - [facility] Comment: ----ADDITIONAL INFORMATION---- Estimated GFR calculated using the 2009 CKD_EPI creatinine equation. Specimen Anatomical Collection Method Collection Time Receive d Time (Source) Location / / Volume Laterality Blood (Blood, 09/22/2018 11:55 09/22/2018 Venous) AM FAMILY NURSE 12:17 PM FAMILY NURSE Vitor Velez M.D. LAB BLOOD ADD-ON Performing Organization Address City/State/ZIP Code Phon e Number [facility] LABORATORIES - [address] [place], [place] [address] [facility] BUN (Blood Urea Nitrogen) (09/22/2018 11:55 AM FAMILY NURSE) P athologist Signature BUN (Blood 14 8 - 24 09/22/2018 [facility] Urea mg/dL 12:53 PM FAMILY NURSE LABORATORIES - Nitrogen), S [facility] Specimen Anatomical Collection Method Collection Time Receive d Time (Source) Location / / Volume Laterality Blood (Blood, 09/22/2018 11:55 09/22/2018 Venous) AM FAMILY NURSE 12:17 PM FAMILY NURSE Vitor Velez M.D. LAB BLOOD ADD-ON Performing Organization Address City/State/ZIP Code Phon e Number [facility] LABORATORIES - [address] [place], [place] [address] [facility] Bicarbonate (09/22/2018 11:55 AM FAMILY NURSE) athologist Signature Bicarbonate, S 29 22 - 29 09/22/2018 [facility] mmol/L 12:53 PM FAMILY NURSE LAB[facility]ATORIES [facility] Specimen Anatomical Collection Method Collection Time Receive d Time (Source) Location / / Volume Laterality Blood (Blood, 09/22/2018 11:55 09/22/2018 Venous) AM FAMILY NURSE 12:17 PM FAMILY NURSE Vitor Velez M.D. LAB BLOOD ADD-ON Performing Organization Address City/State/ZIP Code Phon e Number [facility] LABORATORIES - [address] [place] [address] [facility] Chloride (09/22/2018 11:55 AM FAMILY NURSE) athologist Signature Chloride, S 103 98 - 107 09/22/2018 [facility] mmol/L 12:53 PM FAMILY NURSE [place] Specimen Anatomical Collection Method Collection Time Receive d Time (Source) Location / / Volume Laterality Blood (Blood, 09/22/2018 11:55 09/22/2018 Venous) AM FAMILY NURSE 12:17 PM FAMILY NURSE Vitor Velez M.D. LAB BLOOD ADD-ON Performing Organization Address City/State/ZIP Code Phon e Number [facility] LABORATORIES - [address] [place] [address] [facility] Potassium (09/22/2018 11:55 AM FAMILY NURSE) athologist Signature Potassium, S 4.4 3.6 - 5.2 09/22/2018 [facility] mmol/L 12:53 PM FAMILY NURSE [place] Specimen Anatomical Collection Method Collection Time Receive d Time (Source) Location / / Volume Laterality Blood (Blood, 09/22/2018 11:55 09/22/2018 Venous) AM FAMILY NURSE 12:17 PM FAMILY NURSE Vitor Velez M.D. LAB BLOOD ADD-ON Performing Organization Address City/State/ZIP Code Phon e Number [facility]ORATORIES - [address] [place] [address] [facility] Sodium (09/22/2018 11:55 AM FAMILY NURSE) athologist Signature Sodium, S 140 135 - 145 09/22/2018 [facility] mmol/L 12:53 PM FAMILY NURSE [facility] Specimen Anatomical Collection Method Collection Time Receive d Time (Source) Location / / Volume Laterality Blood (Blood, 09/22/2018 11:55 09/22/2018 Venous) AM FAMILY NURSE 12:17 PM FAMILY NURSE Vitor Velez M.D. LAB BLOOD ADD-ON Performing Organization Address City/State/ZIP Code Phon e Number [facility]ORATORIES - [address] [place] [address] [facility] Alkaline Phosphatase (09/22/2018 11:55 AM FAMILY NURSE) P athologist Signature Alkaline 90 40 - 129 09/22/2018 [facility] Phosphatase, S U/L 12:53 PM FAMILY NURSE LABORATORIES - [facility] Specimen Anatomical Collection Method Collection Time Receive d Time (Source) Location / / Volume Laterality Blood (Blood, 09/22/2018 11:55 09/22/2018 Venous) AM FAMILY NURSE 12:17 PM FAMILY NURSE Vitor Velez M.D. LAB BLOOD ADD-ON Performing Organization Address City/[facility] Code Phon e Number [facility] LABORATORIES - [address] [address] [facility] (ABNORMAL) CBC without Differential (09/22/2018 11:55 AM FAMILY NURSE) Patholo gist Method Time Signature Hemoglobin 13.7 13.2 - 09/22/2018 [facility] 16.6 g/dL 12:32 PM FAMILY NURSE [facility] Hematocrit 44.4 38.3 - 09/22/2018 [facility] 48.6 % 12:32 PM FAMILY NURSE [facility] Erythrocytes 5.55 4.35 - 09/22/2018 [facility] 5.65 12:32 PM FAMILY NURSE LABORATORIES - x10(12)/L [facility] MCV 80.0 78.2 - 09/22/2018 [facility] 97.9 fL 12:32 PM FAMILY NURSE [facility] RBC Distrib 15.8 (H) 11.8 - 09/22/2018 [facility] Width 14.5 % 12:32 PM FAMILY NURSE [facility] Platelet Count 343 (H) 135 - 317 09/22/2018 [facility] x10(9)/L 12:32 PM FAMILY NURSE [facility] Leukocytes 13.4 (H) 3.4 - 9.6 09/22/2018 [facility] x10(9)/L 12:32 PM FAMILY NURSE [facility] Specimen Anatomical Collection Method Collection Time Receive d Time (Source) Location / / Volume Laterality Blood (Blood, 09/22/2018 11:55 09/22/2018 Venous) AM FAMILY NURSE 12:17 PM FAMILY NURSE Vitor Velez M.D. 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 PCP - General 05/30/18 08/10/[address] [phone] documented as of this encounter
--- OUTSIDE RECORDS SUMMARY | 2022-06-23 22:43 | XMS_ITS | Encounter Summary ---
:[address] [facility] Address [address] [place] [address] Care Team Providers Name Role Phone Roz Pack M.D. Primary Care Provider Reason for Referral Outpatient (Routine) - Closed Specialty Diagnoses / Procedures Referred By Contact Refer red To Contact Diagnoses Elevated Troponin Sha Cruz M.D. [facility] Procedures Echo Stress [address] [place] [address] Referral ID Status Reason Start Date Expiration Date Visits Requ ested Visits Authorized [id number] Closed 01/30/2018 07/29/2018 1 1 Reason for Visit Outpatient (Routine) - Closed Specialty Diagnoses / Procedures Referred By Contact Refer red To Contact Diagnoses Elevated Troponin Sha [facility]. [facility] Echo Stress [address] [place] [address] Referral ID Status Reason Start Date Expiration Date Visits Requ ested Visits Authorized [id number] Closed 01/30/2018 07/29/2018 1 1 Encounter Details Date Type Department Care Team Description 05/29/2018 Hospital Encounter Department of Pessanha, Elevated Troponin Cardiovascular Diseases Sha Hernandez M.D. in [facility] ta [address] [place], [place] [phone] [phone] Social History Tobacco Use Types Packs/Day Years [...] or relatives? How often do you attend adventism or More than 4 times per year 06/02/2022 pentecostal services? Do you belong to any clubs or Yes 06/02/2022 organizations such as adventism groups, unions, fraternal or athletic groups, or [...] Sign Reading Time Taken Comments Blood Pressure 142/84 05/29/2018 8:03 AM CDT Pulse - - Temperature - - Respiratory Rate - - Oxygen Saturation - - Inhaled Oxygen Concentration - - Weight 154 kg (339 lb 4.6 oz) 05/29/2018 8:03 AM CDT Height 165 cm (5' 4.96) 05/29/2018 8:03 AM CDT Body Mass Index 56.53 05/29/2018 8:03 AM CDT documented in this encounter Medications at Time of Discharge Medication Sig Dispensed Refills Start Date End Date aspirin 81 mg capsule Take 81 mg by mouth 0 03/09 daily. atorvastatin (LIPITOR) Take 1 tablet (40 mg 90 tablet 3 07/2018 40 mg tabletIndications: total) by mouth at Hyperlipidemia Mixed bedtime. [employer] VERIO strips Test blood glucose 8 720 strip 3 05/16 times per day fluocinonide (for_LIDEX) Apply 1 application 60 g 0 09/18/2018 0.05 % creamIndications: topically 2 (two) Eczema times a day as needed for irritation or rash (eczema). ascorbic acid, vitamin Take 1 tablet by 0 016 05/17/2020 C, (vitamin C) 1,000 mg mouth daily. tablet calcium Take by mouth 2 0 03/25/2011 0 carbonate-vitamin D3 (two) times a day. (CALCIUM+D) 400-133.3 mg-unit tablet cetirizine (ZyrTEC) 10 Zyrtec 10 mg oral 0 200905/17/2020 mg tablet tablet PRN CINNAMON BARK (CINNAMON Take 1 capsule by 0 11/2205/17/2020 ORAL) mouth daily. fluticasone Administer 2 sprays 0 01/21/201710/2019 (for_FLONASE) [...] Mellitus Type 2 Hypoglycemia Without Coma (HCC), Director Pharmacovigilance Use Of Insulin Active (HCC) liraglutide (VICTOZA) Apply inject 0.6 mg 3 mL 3 03/3006/01/2018 0.6 mg/0.1 mL (18 mg/3 daily for one week mL) then increase it 1.2 injectionIndications: mg daily Diabetes Mellitus Type 2 Hyperglycemia (HCC) metFORMIN XR Take 4 tablets 360 tablet 3 02/20/2018 06/22/20 20 (GLUCOPHAGE-XR) 500 mg (2,000 mg total) by 24 hr tablet mouth daily. multivitamin capsule daily. 0 03/09/201001/13 NOVOLOG FLEXPEN U-100 20 UNITS BEFORE EACH 30 mL 2 02/1307/17/2018 INSULIN 100 unit/mL MEAL3 TIMES DAILY. injectionIndications: Diabetes Mellitus Type 2 Hyperglycemia (HCC), Director Pharmacovigilance Use Of Insulin Active (HCC) omeprazole Take 20 mg by mouth 0 08/03 (for_PriLOSEC) 20 mg every morning before capsule breakfast. valsartan (DIOVAN) 80 mg Take 1 tablet (80 mg 90 tablet 3 0 09/18/2017 10/20/2018 tabletIndications: total) by mouth Hypertension Essential daily. Primary documented as of this encounter Plan of Treatment Upcoming Encounters Date Type Specialty Care Team Description 06/26/2022 Appointment Neurology Preet Landeros M.D . [address] [place] [phone] Bria Suh APRN, C.N.P., M.S.N. [address] [place] [address] [phone] 07/25/2022 Appointment Radiology Preet Landeros M.D . [address] [place] [phone] (Wo rk) documented as of this encounter Procedures Procedure Name Priority Date/Time Associated Diagnosis Comme nts ECHO STRESS 2D WITH Routine 05/29/2018 9:16 AM Elevated Tropon in Results for this COLOR, LIMITED CDT procedure are in DOPPLER AND the results CONTRAST section. documented in this encounter Results ECHO STRESS 2D WITH COLOR, LIMITED DOPPLER AND CONTRAST (05/29/2018 9:16 AM CDT) Patholo gist Method Time Signature Ejection Fraction 63 MC CV EIMS Proximal Ascending 31 MC CV EIMS Aorta Wall Motion Score 1.00 MC CV EIMS Index LV End-Diastolic 49 MC CV EIMS Diameter LV End-Systolic 30 MC CV EIMS Diameter MV E Velocity 0.7 MC CV EIMS MV A Velocity 0.6 MC CV EIMS MV E/A 1.17 MC CV EIMS MV e' Velocity 0.13 MC CV EIMS Medial MV E/e' Medial 5.4 MC CV EIMS LV Interventricular 10 MC CV EIMS Septal Wall Thickness LV Posterior Wall 10 MC CV EIMS Thickness LV Relative Wall 41 MC CV EIMS Thickness WMSI At Rest 1.00 MC CV EIMS WMSI At Peak Stress 1.00 MC CV EIMS Anatomical Region Laterality Modality Echocardiography, Ot her Specimen (Source) Anatomical Collection Method Collection Time Re ceived Time Location / / Volume Laterality 05/29/2018 7:51 AM CDT Narrative 05/29/2018 10:08 AM CDT This result has an attachment that is no t available. See PDF For Result Procedure Note Sha Cruz M.D. - 05/29/2018Form atting of this note might be different from the original. See PDF For Result Sha Cruz M.D. CV ECHO PROCEDURES documented in this encounter Visit Diagnoses Diagnosis Elevated Troponin documented in this encounter Administered Medications Inactive Administered Medications - up to 3 most recent administrations Medication Order MAR Action Action Date Dose Rate Site perflutren lipid microspheres Given 05/29/2018 8:48 AM CDT 0.2 m L injection 0.2 mL (DEFINITY) 0.2 mL, intravenous, Once in imaging, contrast, Starting on Fri05/29/18 at 0837, For 1 dose documented in this encounter Additional Health Concerns Assessment Noted Time PHQ-9 Depression Total Score: 4 03/23/2018 12:54 PM CD T documented as of this encounter Care Teams Aircraft Engine Mechanic Supervisor Relationship Specialty Start Date End Date Roz Pack M.D. PCP - General Family Medicine 02/25/18 05/29/18 documented as of this encounter
--- OUTSIDE RECORDS SUMMARY | 2022-06-23 22:43 | XMS_ITS | Encounter Summary ---
:1970 Author Organization [facility] Address [address] [place] [address] Care Team Providers Name Role Phone Amanda Barrios APRN, C.N.P. Primary Care Provider [phone] Encounter Details Date Type Department Care Team Description 09/04/2018 Hospital Encounter Department of Lacey Gallo es Mellitus Laboratory Medicine Jacque Martinez, Typ e 2 (HCC) in [facility] [address] [facility] [address] [place] [address] [phone] Social History Tobacco Use Types Packs/Day Years [...] or relatives? How often do you attend religion or More than 4 times per year 06/02/2022 lutheran services? Do you belong to any clubs or Yes 06/02/2022 organizations such as religion groups, unions, fraternal or athletic groups, or [...] injectionIndications: Diabetes Mellitus Type 2 Hyperglycemia (HCC), Skilled Nursing Use Of Insulin Active (HCC) ONETOUCH VERIO [...] Mellitus Type 2 Hypoglycemia Without Coma (HCC), Skilled Nursing Use Of Insulin Active (HCC) liraglutide (VICTOZA) [...] needleIndications: Diabetes Mellitus Type 2 Hyperglycemia (HCC), Skilled Nursing Use Of Insulin Active (HCC) valsartan (DIOVAN) 80 mg Take 1 tablet (80 mg 90 tablet 3 0 09/18/2017 10/20/2018 tabletIndications: total) by mouth Hypertension Essential daily. Primary documented as of this encounter Plan of Treatment Upcoming Encounters Date Type Specialty Care Team Description 06/26/2022 Appointment Neurology Preet Landeros M.D . [address] [place] [address] Bria Suh APRN, C.N.P., M.S.N. [address] [place] [phone] 07/25/2022 Appointment Radiology Preet Landeros M.D . [address] [place], [place] [phone] (Wo rk) documented as of this encounter Procedures Procedure Name Priority Date/Time Associated Diagnosis Comme nts HEMOGLOBIN A1C, B Routine 09/04/2018 9:34 AM Diabetes Mellitus Results for this [employer] Type 2 (HCC) procedure are i n the results section. documented in this encounter Results (ABNORMAL) Hemoglobin A1c (09/04/2018 9:34 AM [employer]) P athologist Signature Hemoglobin A1c, 6.0 (H) 4.2 - 5.6 09/04/2018 [facility] B % 10:52 AM [facility] Comment: Hemoglobin A1c values of 5.7-6.4 percent indicate an increased risk for developing diabetes joshua suarez. In diabetic patients, HbA1c goals should be discussed with healthcare provider. Specimen Anatomical Collection Method Collection Time Receive d Time (Source) Location / / Volume Laterality Blood (Blood, 09/04/2018 9:34 AM 09/04/20 18 Venous) [employer] 10:27 AM [employer] Carmen Santillan, B.Ch. LAB BLOOD ADD-ON Performing Organization Address City/State/ZIP Code Phon e Number [facility] [address] [place] [address] LAB documented in this encounter Visit Diagnoses Diagnosis Diabetes Mellitus Type 2 (HCC) documented in this encounter Additional Health Concerns Assessment Noted Time PHQ-9 Depression Total Score: 4 03/23/2018 12:54 PM CD T documented as of this encounter Care Teams Residential Specialist Relationship Specialty Start Date End Date Amanda Barrios APRN, C.N.P. PCP - General 05/30/18 08/10/[address] [place] [address] documented as of this encounter
--- OUTSIDE RECORDS SUMMARY | 2022-06-23 22:43 | XMS_ITS | Encounter Summary ---
:1970 Author Organization [facility] Address [address] [place] [address] Care Team Providers Name Role Phone Amanda Barrios APRN, C.N.P. Primary Care Provider [phone] Reason for Visit Outpatient (Routine) - Closed Specialty Diagnoses / Procedures Referred By Contact Refer red To Contact Nutrition Diagnoses Surgery Bariatric Status [facility] 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 Currently in the Health Program. Food/Nutrition Related History Current oral intake: Breakfast is bagel with cream cheese or toast and egg or oatmeal. Lunch is leftovers or sandwich. Evening meal is the largest meal - meat, potato, vegetable. He has stopped snacking, reduced portions and limited sweets. Physical Activity: Mr. Murphy reports walking some most days. Estimation of Nutritional Needs Normal NUTRITION DIAGNOSIS Food and nutrition-related knowledge deficit (NB-1.1) related to no need to know prior as evidenced by questions and request to review bariatric surgery diet. Nutrition Prescription/Recommendation Weight reduction dietary guidelines - continue with portion control, limiting sweets/desserts and snacking. INTERVENTION Education: Consideration for bariatric surgery MONITORING AND EVALUATION: Nutrition parameter to monitor: Weight and glucose Desired Outcome: Euglycemia and weight loss Patient Goal(s): 1. Keep food journal 2. Monitor intake for high fat foods and high sugar foods 3. Switch to 1% milk versus 2%, caffeine free coffee and tea 4. 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 [address] [place] [address] [phone] Bria Suh APRN, C.N.P., M.S.N. [address] [place] [phone] 07/25/2022 Appointment Radiology Preet Landeros M.D . [address] [place] [phone] (Wo rk) documented as of this encounter Visit Diagnoses Diagnosis Surgery Bariatric Status Post documented in this encounter Additional Health Concerns Assessment Noted Time PHQ-9 Depression Total Score: 4 03/23/2018 12:54 PM CD T documented as of this encounter Care Teams Meterman Relationship Specialty Start Date End Date Amanda Barrios APRN, C.N.P. PCP - General 05/30/18 08/10/19 [address] [place] [address] documented as of this encounter
--- OUTSIDE RECORDS SUMMARY | 2022-06-23 22:43 | XMS_ITS | Encounter Summary ---
:1970 Author Organization [facility] Address [address] [place] [address] Care Team Providers Name Role Phone Amanda Barrios APRN, C.N.P. Primary Care Provider [phone] Reason for Visit Reason Comments Med Refill Encounter Details Date Type Department Care Team Description 07/30/2018 Refill Department of Family Medicine, Mayda Barrios APRN, Med Refill [facility], [place] [address] [phone] [place] [address] [phone] Social History Tobacco Use Types Packs/Day Years [...] or relatives? How often do you attend sabianism or More than 4 times per year 06/02/2022 rastafarian services? Do you belong to any clubs or Yes 06/02/2022 organizations such as sabianism groups, unions, fraternal or athletic groups, or [...] or slept in a correction (including now)? Sex Assigned at Date Recorded Male 01/30/2018 9:28 AM CDT documented as of this encounter Miscellaneous Notes Telephone Encounter - Annamarie Mendiola, R.N. - 07/30/2018 2:56 PM CST SUBJECTIVE CHIEF COMPLAINT / REASON FOR CALL Med Refill Patient is requesting the following information: Called pharmacy to inquire about request. PLAN The following information was provided: remote sensing technologist notes he needs pen needles. In September he had 31 G 8 MM prescription ordered. Education: patient/caller able to teach back The following references were used: nursing clinical judgement CH ENGINE MARKETING SPECIALIST Telephone Encounter - Ignacia Han - 07/30/2018 2:45 PM CST Images from the original note were not included. Nurse Review: DME Request Provider: Amanda Barrios APRN, C.N.P. Supply Ordered: Insulin needles Quantity: N/A Directions: N/A Refills: N/A Pharmacy: [facility] [place] # [id number] Please Include the ICD 10 CH ENGINE MARKETING SPECIALIST documented in this encounter Plan of Treatment Upcoming Encounters Date Type Specialty Care Team Description 06/26/2022 Appointment Neurology Preet Landeros M.D . [address] [place] [phone] Bria Suh APRN, C.N.P., M.S.N. [address] [place] [phone] 07/25/2022 Appointment Radiology Preet Landeros M.D . [address] [place], [place] [phone] (Wo rk) documented as of this encounter Visit Diagnoses Diagnosis Diabetes Mellitus Type 2 Hyperglycemia ( HCC) - Primary Retirement Use Of Insulin Active (HCC) documented in this encounter Additional Health Concerns Assessment Noted Time PHQ-9 Depression Total Score: 4 03/23/2018 12:54 PM CD T documented as of this encounter Care Teams Community Sports Coordinator Relationship Specialty Start Date End Date Amanda Barrios, BRET, C.N.P. PCP - General 05/30/18 08/10/19 [address] [place] [phone] documented as of this encounter
--- OUTSIDE RECORDS SUMMARY | 2022-06-23 22:43 | XMS_ITS | Encounter Summary ---
:1970 Author Organization [facility] Address [address] [place] [address] Care Team Providers Name Role Phone Roz Pack M.D. Primary Care Provider Encounter Details Date Type Department Care Team Description 04/21/2018 Clinical Communication Division of Ramya Oneill, Endocrinology in [facility] [place], [place] [address] [facility] [address] [place] [phone] [phone] Social History Tobacco Use Types Packs/Day Years [...] or slept in a longterm (including now)? Sex Assigned at Date Recorded Male 01/30/2018 9:28 AM CDT documented as of this encounter Miscellaneous Notes Telephone Encounter - Nenita Weston - 04/21/2018 11:56 AM CDT Patient called and will try calling you back. Telephone Encounter - Barbara Perez - 04/21/2018 11:08 AM CDT Left message for patient to call is back to review insurance requirements for bariatric surgery. documented in this encounter Plan of Treatment Upcoming Encounters Date Type Specialty Care Team Description 06/26/2022 Appointment Neurology Preet Landeros M.D . [address] [place] [phone] Bria Suh APRN, C.N.P., M.S.N. [address] [place] [phone] 07/25/2022 Appointment Radiology Preet Landeros M.D . [address] [place] [phone] (Wo rk) documented as of this encounter Visit Diagnoses Not on filedocumented in this encounter Additional Health Concerns Assessment Noted Time PHQ-9 Depression Total Score: 4 03/23/2018 12:54 PM CD T documented as of this encounter Care Teams Single Wire Saw Operator Relationship Specialty Start Date End Date Roz Pack M.D. PCP - General Family Medicine 02/25/18 05/29/18 documented as of this encounter
--- OUTSIDE RECORDS SUMMARY | 2022-06-23 22:43 | XMS_ITS | Encounter Summary ---
:1970 Author Organization [facility] Address [address] [place] [address] Care Team Providers Name Role Phone Amanda Barrios APRN, C.NPietro Primary Care Provider [phone] Encounter Details Date Type Department Care Team Description 05/29/2018 Clinical Communication Department of [place] Cardiovascular Diseases Savanah Hernandez in [address] [place] [phone] Social History Tobacco Use Types Packs/Day Years [...] or relatives? How often do you attend restorationism or More than 4 times per year 06/02/2022 islam services? Do you belong to any clubs or Yes 06/02/2022 organizations such as restorationism groups, unions, fraternal or athletic groups, or [...] this encounter Miscellaneous Notes Telephone Encounter - Piper Hurtado R.N. - 05/29/2018 10:56 AM CDT Spoke with patient about his test results. No further questions or concerns at this time. Telephone Encounter - Caron Hoang - 05/29/2018 10:23 AM CDT Patient called back. Please call [phone] Telephone Encounter - Raine Alanis, C.MBonA. - 05/29/2018 10:20 AM CDT Left message for patient to call back. Telephone Encounter - Sha Cruz M.D. - 05/29/2018 10:09 AM CDT Stress test showed no evidence of ischemia. Reassuring results. Please inform the patient. Asked himto call me in case of symptoms or concerns. Thank you, Sha Cruz documented in this encounter Plan of Treatment Upcoming Encounters Date Type Specialty Care Team Description 06/26/2022 Appointment Neurology Preet Landeros M.D . [address] [place] [phone] Bria Suh APRN, C.N.P., M.S.N. [address] [place] [phone] 07/25/2022 Appointment Radiology Preet Landeros M.D . [address] [place] [phone] (Wo rk) documented as of this encounter Visit Diagnoses Not on filedocumented in this encounter Additional Health Concerns Assessment Noted Time PHQ-9 Depression Total Score: 4 03/23/2018 12:54 PM CD T documented as of this encounter Care Teams Ep Technologist Relationship Specialty Start Date End Date Amanda Barrios APRN, C.N.P. PCP - General 05/30/18 08/10/[address] [phone] documented as of this encounter
--- OUTSIDE RECORDS SUMMARY | 2022-06-23 22:43 | XMS_ITS | Encounter Summary ---
:1970 Author Organization [facility] Address [address] [place] [address] Care Team Providers Name Role Phone Amanda Barrios APRN CBonNBonPBon Primary Care Provider [phone] Reason for Visit Reason Comments Other Diabetes Mellitus Outpatient (Routine) - Closed Specialty Diagnoses / Procedures Referred By Contact Refer red To Contact Endocrinology Sabino, Carmen Johnston, LEELEE Bronson [facility] Jacque, B.Ch. [address] [place] [address] Referral ID Status Reason Start Date Expiration Date Visits Requ ested Visits Authorized [id number] Closed 05/29/2018 05/29/2019 1 1 Encounter Details Date Type Department Care Team Description 09/11/2018 Office Visit Department of Sabino, Diabetes Annette litus Type Endocrinology in Jacque Martinez, 2 Hype rglycemia (HCC) [place], [place] B.Ch. (Primary Dx) [address] [place] [phone] Social History Tobacco Use Types Packs/Day [...] or slept in a retirement (including now)? Sex Assigned at Date Recorded Male 01/30/2018 9:28 AM CDT documented as of this encounter Last Filed Vital Signs Vital Sign Reading Time Taken Comments Blood Pressure 122/78 09/11/2018 2:20 PM UNION ORGANIZER Pulse 76 09/11/2018 2:20 PM UNION ORGANIZER Temperature - - Respiratory Rate 16 09/11/2018 2:20 PM UNION ORGANIZER Oxygen Saturation - - Inhaled Oxygen Concentration - - Weight 148 kg (326 lb 4.5 oz) 09/11/2018 2:20 PM UNION ORGANIZER Height - - Body Mass Index 54.43 07/22/2018 10:25 AM UNION ORGANIZER documented in this encounter Progress Notes Carmen Gallo M.B., B.Ch. - 09/11/2018 2:10 PM CST ENDOCRINOLOGY FOLLOWUP VISIT SUBJECTIVE CHIEF COMPLAINT/REASON FOR VISIT Followup of type 2 diabetes. HISTORY OF PRESENT ILLNESS Mr. Murphy is a pleasant 48-year-old gentleman who presents today for followup of type 2 diabetes with medically complicated obesity. His current regimen includes Victoza 1.8 mg daily, metformin 1000 mg daily (high doses lead to GI intolerance), Basaglar 33 units daily and NovoLog 6 to 16 units depending on what he eats. A1c continues to improve to 6%. He only gets hypoglycemia if he is very active at work and tries to reduce his insulin dose prior to this. I reviewed his meter download and he is checking at least 4 times per day, all levels within goal range. He has no known complications related to his diabetes. He has hypertension but blood pressure is well controlled at 122/78. He has dyslipidemia which is controlled on Lipitor 40 mg daily. He has severeobstructive sleep apnea and utilizes CPAP. He continues to lose weight, total of 30 pounds approximately from December of 2017. ASSESSMENT / PLAN #1 Type 2 diabetes, controlled #2 Medically complicated obesity He continues to work with the bariatric group in [place] as he is considering surgery. I congratulated him on his excellent diabetes efforts and we have not made any changes to his regimen today. Discussed that he may need to reduce NovoLog as his weight continues to drop. We will plan to see him back in 6 months. All screening is complete. CT CT Job ID: [id number] N ORGANIZER documented in this encounter Plan of Treatment Upcoming Encounters Date Type Specialty Care Team Description 06/26/2022 Appointment Neurology Preet Landeros M.D . [address] [place] [phone] Bria Suh APRN, C.N.P., M.S.N. [address] [place] [phone] 07/25/2022 Appointment Radiology Preet Landeros M.D . [address] [place] [phone] (Wo rk) documented as of this encounter Visit Diagnoses Diagnosis Diabetes Mellitus Type 2 Hyperglycemia ( HCC) - Primary documented in this encounter Additional Health Concerns Assessment Noted Time PHQ-9 Depression Total Score: 4 03/23/2018 12:54 PM CD T documented as of this encounter Care Teams Wrap Checker Relationship Specialty Start Date End Date Amanda Barrios, BLUNGER LOADER, C.N.P. PCP - General 05/30/18 08/10/19 [address] [place] [address] documented as of this encounter
--- OUTSIDE RECORDS SUMMARY | 2022-06-23 22:43 | XMS_ITS | Encounter Summary ---
:1970 Author Organization [facility] Address [address] [place] [address] Care Team Providers Name Role Phone Roz Pack M.D. Primary Care Provider Encounter Details Date Type Department Care Team Description 05/27/2018 Hospital Encounter Department of Lacey Gallo es Mellitus Laboratory Medicine Jacque Martinez, Typ e 2 Hypoglycemia in [place] Without Coma (HCC) [place] [address] [facility] [address] [place] [phone] Social History Tobacco Use Types Packs/Day Years [...] or slept in a custodial (including now)? Sex Assigned at Date Recorded Male 01/30/2018 9:28 AM CDT documented as of this encounter Medications at Time of Discharge Medication Sig Dispensed Refills Start Date End Date aspirin 81 mg capsule Take 81 mg by mouth 0 03/09 daily. atorvastatin (LIPITOR) Take 1 tablet (40 mg 90 tablet 3 07/2018 40 mg tabletIndications: total) by mouth at Hyperlipidemia Mixed bedtime. fluocinonide (for_LIDEX) Apply 1 application 60 g [...] mouth daily. fluticasone Administer 2 sprays 0 01/21/2017/0 10/2019 (for_FLONASE) 50 into each nostril as mcg/actuation nasal needed. spray ibuprofen (ADVIL) 200 mg Take 2 tablets by 0 /01/201605/17/2020 tablet mouth as needed. insulin glargine Inject 0.3 mL (30 15 mL 2 01/16/2018 1 (BASAGLAR KWIKPEN U-100 Units total) under INSULIN) 100 unit/mL (3 the skin at bedtime. mL) injectionIndications: Diabetes Mellitus Type 2 Hypoglycemia Without Coma (HCC), Alf Use Of Insulin Active (HCC) liraglutide (VICTOZA) [...] injectionIndications: Diabetes Mellitus Type 2 Hyperglycemia (HCC), Seed Packer Use Of Insulin Active (HCC) omeprazole Take 20 mg by mouth 0 08/03 (for_PriLOSEC) 20 mg every morning before capsule breakfast. ONETOUCH VERIO strips 0 04/07/2018 valsartan (DIOVAN) 80 mg Take 1 tablet (80 mg 90 tablet 3 0 09/18/2017 10/20/2018 tabletIndications: total) by mouth Hypertension Essential daily. Primary documented as of this encounter Plan of Treatment Upcoming Encounters Date Type Specialty Care Team Description 06/26/2022 Appointment Neurology Preet Landeros M.D . [address] [place] [address] Bria Suh APRN, C.N.P., M.S.N. [address] [place] [address] 07/25/2022 Appointment Radiology Preet Landeros M.D . [address] [place], [place] [phone] (Wo rk) documented as of this encounter Procedures Procedure Name Priority Date/Time Associated Diagnosis Comme nts LIPID PANEL, S Routine 05/27/2018 8:48 AM Diabetes Mellitus Re sults for this CDT Type 2 Hypoglycemia procedur e are in Without Coma (HCC) the resul ts section. HEMOGLOBIN A1C, B Routine 05/27/2018 8:48 AM Diabetes Mellitus Results for this CDT Type 2 Hypoglycemia procedur e are in Without Coma (HCC) the resul ts section. ALBUMIN, RANDOM, U Routine 05/27/2018 8:47 AM Diabetes Mellitu s Results for this CDT Type 2 Hypoglycemia procedur e are in Without Coma (HCC) the resul ts section. documented in this encounter Results (ABNORMAL) Hemoglobin A1c (05/27/2018 8:48 AM CDT) athologist Signature Hemoglobin A1c, 6.5 (H) 4.2 - 5.6 05/27/2018 [facility] B % 11:26 AM CDT [facility] Comment: Hemoglobin A1c values greater than or eq ual to 6.5 percent are diagnostic for diabetes mellitus. ?? Diagnosis should be confirmed by repeat testing. ??In diabet ic patients, HbA1c goals should be discussed with healthcar e provider. Specimen Anatomical Collection Method Collection Time Receive d Time (Source) Location / / Volume Laterality Blood (Blood, 05/27/2018 8:48 AM 05/27/20 18 Venous) CDT 10:56 AM CDT Carmen Santillan, B.Ch. LAB BLOOD ADD-ON Performing Organization Address City/State/ZIP Code Phon e Number [email or web address] [address] [place] [address] LAB Lipid Panel (05/27/2018 8:48 AM CDT) athologist Signature Cholesterol, 134 mg/dL 05/27/2018 [facility] Total 11:20 AM CDT [facility] Comment: ----REFERENCE VALUE---- Desirable: < 200 Borderline high: 200 - 239 High: > or = 240 Triglycerides 139 mg/dL 05/27/2018 11:20 AM CDT [facility] [place] [facility] Comment: ----REFERENCE VALUE---- Normal: <150 Borderline high: 150-199 High: 200-499 Very high: > or =500 Cholesterol, HDL, S 41 >=40 mg/dL 05/27/2018 11:20 AM CDT [facility] [place] [facility] Calculated LDL 65 mg/dL 05/27/2018 11:20 AM CDT [facility] [place] [facility] Comment: ----REFERENCE VALUE---- Desirable: <100 Above Desirable: 100-129 Borderline high: 130-159 High: 160-189 Very high: > or =190 Cholesterol, Non-HDL, 93 mg/dL 05/27/2018 11:[address] [facility] B Comment: ----REFERENCE VALUE---- Desirable: <130 Above Desirable: 130-159 Borderline high: 160-189 High: 190-219 Very high: > or =220 Specimen Anatomical Collection Method Collection Time Receive d Time (Source) Location / / Volume Laterality Blood (Blood, 05/27/2018 8:48 AM 05/27/20 18 Venous) CDT 10:56 AM CDT Carmen Santillan, B.Ch. LAB BLOOD ADD-ON Performing Organization Address City/State/ZIP Code Phon e Number [facility] [address] [place] [address] LAB Microalbumin, Random, Urine (05/27/2018 8:47 AM CDT) P athologist Signature Microalbumin <7.0 mg/L 05/27/2018 [facility] 12:12 PM CDT [facility] Creatinine 51 mg/dL 05/27/2018 [facility] 12:12 PM CDT [facility] Albumin/Creatinin <14 <17 mg/g 05/27/2018 [facility] e Ratio 12:12 PM CDT [facility] Comment: This ratio may not correspond with the r eference range because one or both of the values used t o calculate the ratio was above or below the quantificat ion limits. Specimen Anatomical Collection Method Collection Time Receive d Time (Source) Location / / Volume Laterality Urine (Urine, 05/27/2018 8:47 AM 05/27/20 18 Clean Catch) CDT 10:56 AM CDT Carmen Santillan, B.Ch. LAB URINE ORDERAB LES Performing Organization Address City/State/[facility] Code Phon e Number [facility] [address] [place] [address] LAB documented in this encounter Visit Diagnoses Diagnosis Diabetes Mellitus Type 2 Hypoglycemia Wi thout Coma (HCC) documented in this encounter Additional Health Concerns Assessment Noted Time PHQ-9 Depression Total Score: 4 03/23/2018 12:54 PM CD T documented as of this encounter Care Teams Bottle Blowing Machine Tender Relationship Specialty Start Date End Date Roz Pack M.D. PCP - General Family Medicine 02/25/18 05/29/18 documented as of this encounter
--- OUTSIDE RECORDS SUMMARY | 2022-06-23 22:43 | XMS_ITS | Encounter Summary ---
:1970 Author Organization [facility] Address [address] [place] [address] Care Team Providers Name Role Phone Amanda Barrios APRN C.N.PBon Primary Care Provider [phone] Reason for Visit Reason Comments Cpap Follow-up Last visit 04/16/18. Appointment Request (Routine) - Closed Specialty Diagnoses / Procedures Referred By Contact Refer red To Contact Neurology Referral ID Status Reason Start Date Expiration Date Visits Requ ested Visits Authorized [id number] Closed 06/18/2018 06/18/2019 1 Encounter Details Date Type Department Care Team Description 08/26/2018 Office Visit Department of Nany Elder, Kvng on Essential Primary (Primary Dx); Neurology in M.D., M.P.H. Apnea Sleep Obstructive [place], [place] [address] [phone] Social History Tobacco Use Types Packs/Day Years [...] or relatives? How often do you attend buddhist or More than 4 times per year 06/02/2022 sikh services? Do you belong to any clubs or Yes 06/02/2022 organizations such as buddhist groups, unions, fraternal or athletic groups, or [...] Sign Reading Time Taken Comments Blood Pressure 143/71 08/26/2018 2:18 PM MEDICAL SPECIALIST Pulse 80 08/26/2018 2:18 PM MEDICAL SPECIALIST Temperature - - Respiratory Rate - - Oxygen Saturation - - Inhaled Oxygen Concentration - - Weight 149 kg (328 lb 4.2 oz) 08/26/2018 2:16 PM MEDICAL SPECIALIST Height - - Body Mass Index 54.76 07/22/2018 10:25 AM MEDICAL SPECIALIST documented in this encounter Progress Notes Nany Elder M.D., M.P.H. - 08/26/2018 2:30 PM CST SUBJECTIVE Mr. Murphy is a 48 y.o. year-old male who returns for PAP follow-up. History was obtained from the patient. Mr. Murphy reports PAP-related improvements in: sleep quality, yarsani by sleep, daytime alertness, sleepiness, fatigue, energy, cognitive function, nocturia and weight Mr. Murphy complains of the following with PAP: interface leak Mr. Murphy denies the following with PAP: choking, gasping, sinus discomfort, epistaxis, dry mouth, nasal skin irritation, nasal skin breakdown, facial skin snoring on PAP, witnessed apneas on PAP and machine noise [place] Total score: 6 Additional history: Since AHI is 3.9 and this contrasts with his apnea-hypopnea index of 110 and total respiratory disturbance index of 114 on 03/25/2018. His leak per minute median is 18.6 and 95th percentile is 95.7 maximum is 80.4. Average use is 6 hr and 30 min. The patient is noted substantial decrease in nocturia and so his sleep is more consolidated. Current sleep schedule is: Consistent OBJECTIVE PHYSICAL EXAM Respiratory System Examination General Appearance: Normal. Not do detailed examination at today's visit Musculoskeletal: Strength and tone normal. Gait normal. Extremities: No clubbing, cyanosis or edema. Skin: No rash or significant lesions noted. Neurological/psychiatric: Oriented to time, place and person. Mood and affect normal. ASSESSMENT / PLAN Encounter Diagnoses Name Primary? Hypertension Essential Primary Yes ??? Apnea Sleep Obstructive I have recommended the patient contact durable medical equipment supplier and see if they can get a mask that fits him a little better. The patient is clearly benefitting from his CPAP machine and using it well over 4 hr per night. I will plan to see him back in 6 months. Today's visit we spent 20 mintogether with 15 in counseling. Answers for HPI/ROS submitted by the patient on 08/26/2018 No general issues: Yes No eye issues: Yes Sinus congestion: Yes Swelling in the legs or feet: Yes No heart issues: Yes No respiratory issues: Yes No GI issues: Yes Muscle pain/stiffness: Yes Back pain/stiffness: Yes No skin issues: Yes Headache: Yes Numbness or shooting pain in hands, arms, legs or feet: Yes Weakness in arms and/or legs: Yes No mental health issues: Yes No blood/lymph issues: Yes No urinary/reproductive issues: Yes CAL SPECIALIST documented in this encounter Plan of Treatment Upcoming Encounters Date Type Specialty Care Team Description 06/26/2022 Appointment Neurology Preet Landeros M.D . [address] [place] [phone] Bria Suh APRN, C.N.P., M.S.N. [address] [place] [phone] 07/25/2022 Appointment Radiology Preet Landeros M.D . [address] [place], [place] [phone] (Wo rk) documented as of this encounter Visit Diagnoses Diagnosis Hypertension Essential Primary - Primary Apnea Sleep Obstructive documented in this encounter Additional Health Concerns Assessment Noted Time PHQ-9 Depression Total Score: 4 03/23/2018 12:54 PM CD T documented as of this encounter Care Teams Seat Joiner Chainstitch Relationship Specialty Start Date End Date Amanda Barrios APRN, C.N.P. PCP - General 05/30/18 08/10/19 [address], [place] [phone] documented as of this encounter
--- OUTSIDE RECORDS SUMMARY | 2022-06-23 22:43 | XMS_ITS | Encounter Summary ---
:1970 Author Organization [facility] Address [address] [place] [address] Care Team Providers Name Role Phone Amanda Barrios APRN, C.NBonPBon Primary Care Provider [phone] Encounter Details Date Type Department Care Team Description 06/25/2018 Nurse Only Department of Family Sara Green L.P .N. Medicine, [facility], in [address] [phone] Social History Tobacco Use Types Packs/Day Years [...] More than 4 times per year 06/02/2022 latter-day services? Do you belong to any clubs [...] Neurology Preet Landeros M.D . [address] [place] [address] Bria Suh APRN, C.N.P., M.S.N. [address] [place] [phone] 07/25/2022 Appointment Radiology Preet Landeros M.D . [address] [place] [phone] (Wo rk) documented as of this encounter Visit Diagnoses Diagnosis Need Vaccine Immunization - Primary documented in this encounter Additional Health Concerns Assessment Noted Time PHQ-9 Depression Total Score: 4 03/23/2018 12:54 PM CD T documented as of this encounter Care Teams Deputy Prosecuting Attorney Relationship Specialty Start Date End Date Amanda Barrios APRN, C.N.P. PCP - General 05/30/18 08/10/19 [address] [place] [phone] documented as of this encounter
--- OUTSIDE RECORDS SUMMARY | 2022-06-23 22:43 | XMS_ITS | Encounter Summary ---
:1970 Author Organization [facility] Address [address] [place] [address] Care Team Providers Name Role Phone Roz Pack M.D. Primary Care Provider Reason for Visit Reason Comments Med Refill Encounter Details Date Type Department Care Team Description 05/26/2018 Refill Department of Cardiovascular Pes Sha best M.D. Med Refill Diseases in [place], [place] [address] [place] [address] [facility] [address] [phone] (Wo rk) Social History Tobacco Use Types [...] or relatives? How often do you attend rastafari or More than 4 times per year 06/02/2022 mandaen services? Do you belong to any clubs or Yes 06/02/2022 organizations such as rastafari groups, unions, fraternal or athletic groups, or [...] or slept in a prison (including now)? Sex Assigned at Date Recorded Male 01/30/2018 9:28 AM CDT documented as of this encounter Plan of Treatment Upcoming Encounters Date Type Specialty Care Team Description 06/26/2022 Appointment Neurology Preet Landeros M.D . [address] [place] [phone] Bria Suh, BRET, C.N.P., M.S.N. [address] [place] [phone] 07/25/2022 Appointment Radiology Preet Landeros M.D . [address] [place] [phone] (Wo rk) documented as of this encounter Visit Diagnoses Diagnosis Hyperlipidemia Mixed documented in this encounter Additional Health Concerns Assessment Noted Time PHQ-9 Depression Total Score: 4 03/23/2018 12:54 PM CD T documented as of this encounter Care Teams Rn Medication Relationship Specialty Start Date End Date Roz Pack M.D. PCP - General Family Medicine 02/25/18 05/29/18 documented as of this encounter
--- OUTSIDE RECORDS SUMMARY | 2022-06-23 22:43 | XMS_ITS | Encounter Summary ---
:1970 Author Organization [facility] Address [address] [place] [address] Care Team Providers Name Role Phone Amanda Barrios APRN, C.NPietro Primary Care Provider [phone] Encounter Details Date Type Department Care Team Description 08/26/2018 Orders Only Department of Neurology Nany Elder, Apnea Sleep Obstructive in [facility] nadeen Pavon, M.P.H. (Primary Dx) [address] [place] [phone] Social History Tobacco Use Types Packs/Day [...] or relatives? How often do you attend caodaism or More than 4 times per year 06/02/2022 congregation services? Do you belong to any clubs or Yes 06/02/2022 organizations such as caodaism groups, unions, fraternal or athletic groups, or [...] Neurology Preet Landeros M.D . [address] [place] [phone] Bria Suh APRN, C.N.P., M.S.N. [address] [place] [phone] 07/25/2022 Appointment Radiology Preet Landeros M.D . [address] [place] [phone] (Wo rk) documented as of this encounter Visit Diagnoses Diagnosis Apnea Sleep Obstructive - Primary documented in this encounter Additional Health Concerns Assessment Noted Time PHQ-9 Depression Total Score: 4 03/23/2018 12:54 PM CD T documented as of this encounter Care Teams Electronic Warfare Officer Relationship Specialty Start Date End Date Amanda Barrios APRN, C.N.P. PCP - General 05/30/18 08/10/19 [address] [place] [phone] documented as of this encounter
--- OUTSIDE RECORDS SUMMARY | 2022-06-23 22:44 | XMS_ITS | Encounter Summary ---
:1970 Author Organization [facility] Address [address] [place] [address] Care Team Providers Name Role Phone Roz Pack M.D. Primary Care Provider Encounter Details Date Type Department Care Team Description 03/20/2018 Hospital Encounter Department of Amanda Barrios s Mellitus Type 2 Hyperglycemia (HCC); Laboratory Medicine Vickie, BRET, C.N .P. Hyperlipidemia Mixed in [place], [address] [place], [place] [address] [address] [place], [place] [phone] (Work) [phone] Social History Tobacco Use Types Packs/Day Years Used Date Smoking Tobacco: Light Smoker Smokeless Tobacco: Never Comments: Cigar Alcohol Use Standard Drinks/Week Comments Yes 0 (1 standard drink = 0.6 oz pure alcoho l) Rare Alcohol Habits Answer Date Recorded How often do you have a drink containing alcohol? Monthly or less 06/02/2022 How many drinks containing alcohol do you have on a 1 or 2 06/02/2022 typical day when you are drinking? How often do you have six or more drinks on one Never 06/02/2022 occasion? Comment: Rare 01/30/2018 Social Isolation Answer Date Recorded In a typical week, how many times do you More than three roverto es a week 06/02/2022 talk on the phone with family, friends, or neighbors? How often do you get together with friends Three times a wee alonzo 06/02/2022 or relatives? How often do you attend adventism or More than 4 times per year 06/02/2022 sabianism services? Do you belong to any clubs [...] 81 mg by mouth 0 03/09 daily. fluocinonide (for_LIDEX) Apply 1 application 60 g 0 09/18/2018 0.05 % creamIndications: topically 2 (two) Eczema times a day as needed for irritation or rash (eczema). ascorbic acid, vitamin Take 1 tablet by 0 016 05/17/2020 C, (vitamin C) 1,000 mg mouth daily. tablet atorvastatin (LIPITOR) Take 1 tablet (40 mg 90 tablet 0 05/26/2018 40 mg tabletIndications: total) by mouth at Hyperlipidemia Mixed bedtime. blood glucose ctl Glucose control 1 each 0 02/20/2018 high,nml,low solution solution provides an easy way to ensure accurate blood glucose testing. blood sugar diagnostic 4 test daily. 360 test 3 02/20/2018 03/23/2018 strips blood-glucose meter misc Test as directed for 1 each 0 0 02/20/2018 03/23/2018 diabetes control. calcium Take by mouth 2 0 03/25/2011 0 carbonate-vitamin D3 (two) times a day. (CALCIUM+D) 400-133.3 mg-unit tablet cetirizine (ZyrTEC) 10 Zyrtec 10 mg oral 0 200905/17/2020 mg tablet tablet PRN CINNAMON BARK (CINNAMON Take 1 capsule by 0 11/2205/17/2020 ORAL) mouth daily. fluticasone Administer 2 sprays 0 01/21/2017 09/0 10/2019 (for_FLONASE) 50 into each nostril as mcg/actuation nasal needed. spray ibuprofen (ADVIL) 200 mg Take 2 tablets by 0 11/1405/17/2020 tablet mouth as needed. insulin glargine Inject 0.3 mL (30 15 mL 2 01/16/2018 1 (BASAGLAR KWIKPEN U-100 Units total) under INSULIN) 100 unit/mL (3 the skin at bedtime. 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 multivitamin capsule daily. 0 03/09/201001/13 NOVOLOG FLEXPEN U-100 20 UNITS BEFORE EACH 30 mL 2 02/1307/17/2018 INSULIN 100 unit/mL MEAL3 TIMES DAILY. injectionIndications: Diabetes Mellitus Type 2 Hyperglycemia (HCC), Fdc Use Of Insulin Active (HCC) omeprazole Take 20 mg by mouth 0 08/03 (for_PriLOSEC) 20 mg every morning before capsule breakfast. ONETOUCH ULTRA TEST 0 12/18/201703/23 strips ONETOUCH VERIO HIGH 0 02/24/201803/23 CONTROL solution pen needle, diabetic Inject insulin 4 200 each 11 8 03/23/2018 (LITE TOUCH INSULIN PEN times daily. 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 Primary documented as of this encounter Plan of Treatment Upcoming Encounters Date Type Specialty Care Team Description 06/26/2022 Appointment Neurology Landeros, Preet, M.D . [address] [place] [phone] Bria Suh APRN, C.N.P., M.S.N. [address] [place] [phone] 07/25/2022 Appointment Radiology Preet Landeros M.D . [address] [place], [place] [phone] (Wo rk) documented as of this encounter Procedures Procedure Name Priority Date/Time Associated Diagnosis Comme nts LIPID PANEL, S Routine 03/20/2018 8:49 Hyperlipidemia Mixed Re sults for this AM CDT procedure are i n the results section. ASPARTATE Routine 03/20/2018 8:49 Hyperlipidemia Mixed Resu lts for this AMINOTRANSFERASE (AST), AM CDT proc edure are in S/P the results section. HEMOGLOBIN A1C, B Routine 03/20/2018 8:49 Diabetes Mellitus Re sults for this AM CDT Type 2 Hyperglycemia procedu re are in (HCC) the results section. BASIC METABOLIC PANEL, Routine 03/20/2018 8:49 Diabetes Mellit us Results for this S/P AM CDT Type 2 Hyperglycemia procedu re are in (HCC) the results section. documented in this encounter Results (ABNORMAL) Hemoglobin A1c (03/20/2018 8:49 AM CDT) P athologist Signature Hemoglobin A1c, 7.4 (H) 4.2 - 5.6 03/20/2018 [facility] B % 11:53 AM CDT [facility] Comment: Hemoglobin A1c values greater than or eq ual to 6.5 percent are diagnostic for diabetes mellitus. ?? Diagnosis should be confirmed by repeat testing. ??In diabet ic patients, HbA1c goals should be discussed with healthcar e provider. Specimen Anatomical Collection Method Collection Time Receive d Time (Source) Location / / Volume Laterality Blood 03/20/2018 8:49 AM 8 CDT 11:15 AM CDT Amanda Barrios APRN, C.N.P. LAB BLOOD ADD-ON Performing Organization Address City/State/ZIP Code Phon e Number [facility] [address] [place] [address] LAB Lipid Panel (03/20/2018 8:49 AM CDT) P athologist Signature Cholesterol, 94 mg/dL 03/20/2018 [facility] Total 11:40 AM CDT [facility] Comment: ----REFERENCE VALUE---- Desirable: < 200 Borderline high: 200 - 239 High: > or = 240 Triglycerides 141 mg/dL 03/20/2018 11:40 AM CDT [facility] Comment: ----REFERENCE VALUE---- Normal: <150 Borderline high: 150-199 High: 200-499 Very high: > or =500 Cholesterol, HDL, S 41 >=40 mg/dL 03/20/2018 11:40 AM CDT [facility] Calculated LDL <30 mg/dL 03/20/2018 11:40 AM CDT [facility] [place] [facility] Comment: ----REFERENCE VALUE---- Desirable: <100 Above Desirable: 100-129 Borderline high: 130-159 High: 160-189 Very high: > or =190 Cholesterol, Non-HDL, 53 mg/dL 03/20/2018 11:40 A M CDT [facility] [place] B Comment: ----REFERENCE VALUE---- Desirable: <130 Above Desirable: 130-159 Borderline high: 160-189 High: 190-219 Very high: > or =220 Specimen Anatomical Collection Method Collection Time Receive d Time (Source) Location / / Volume Laterality Blood 03/20/2018 8:49 AM 8 CDT 11:14 AM CDT Amanda Barrios APRN, C.N.P. LAB BLOOD ADD-ON Performing Organization Address City/State/ZIP Code Phon e Number [facility] [address] [place] [address] LAB AST (Aspartate Aminotransferase) (03/20/2018 8:49 AM CDT) Patholo gist Method Time Signature Aspartate 17 8 - 48 03/20/2018 [facility] Aminotransferase U/L 11:40 AM [facility] [place] 2[facility] Specimen Anatomical Collection Method Collection Time Receive d Time (Source) Location / / Volume Laterality Blood 03/20/2018 8:49 AM 8 CDT 11:14 AM CDT Barbara Mendez APRNPBon LAB BLOOD ADD-ON Performing Organization Address City/State/ZIP Code Phon e Number [facility] [address] [place] [address] LAB (ABNORMAL) BMP (Basic Metabolic Panel) (03/20/2018 8:49 AM CDT) P athologist Signature Potassium, S 4.7 3.6 - 5.2 03/20/2018 [facility] mmol/L 11:40 AM [facility] Sodium, S 140 135 - 145 03/20/2018 [facility] mmol/L 11:40 AM [facility] Chloride, S 102 98 - 107 03/20/2018 [facility] mmol/L 11:40 AM [facility] Bicarbonate, S 31 (H) 22 - 29 03/20/2018 [facility] mmol/L 11:40 AM [facility] Anion Gap 7 7 - 15 03/20/2018 [facility] 11:40 AM [facility] BUN (Blood Urea 15 8 - 24 03/20/2018 [facility] Nitrogen), S mg/dL 11:40 AM [facility] Creatinine 1.01 0.74 - 03/20/2018 [facility] 1.35 mg/dL 11:40 AM [facility] eGFR-Non 88 >=60 03/20/2018 [facility] Black/ mL/min/BSA 11:40 AM [facility] [place]NOTE 2] [email or web address] SYSTE M- [place] [facility] Comment: ----ADDITIONAL INFORMATION---- Estimated GFR calculated using the 2009 CKD_EPI creatinine equation. eGFR-Black/ >90 >=60 mL/min/BSA 2017 11:40 [facility] [place] Comment: ----ADDITIONAL INFORMATION---- Estimated GFR calculated using the 2009 CKD_EPI creatinine equation. Calcium, Total, S 9.5 8.6 - 10.0 mg/dL 03/20/2018 11:[address] [facility] [place] [facility] Glucose, S 131 70 - 140 mg/dL 03/20/2018 11:40 AM [facility] [place] [facility] Specimen Anatomical Collection Method Collection Time Receive d Time (Source) Location / / Volume Laterality Blood 03/20/2018 8:49 AM 8 CDT 11:14 AM CDT Amanda Barrios APRN C.N.P. LAB BLOOD ADD-ON Performing Organization Address City/State/ZIP Code Phon e Number [facility] [address] [place] [address] LAB documented in this encounter Visit Diagnoses Diagnosis Diabetes Mellitus Type 2 Hyperglycemia ( HCC) Hyperlipidemia Mixed documented in this encounter Care Teams [employer] Senior Officer Relationship Specialty Start Date End Date Roz Pack M.D. PCP - General Family Medicine 02/25/18 05/29/18 documented as of this encounter
--- OUTSIDE RECORDS SUMMARY | 2022-06-23 22:44 | XMS_ITS | Encounter Summary ---
:1970 Author Organization [facility] Address [address] [place] [address] Care Team Providers Name Role Phone Roz Pack M.D. Primary Care Provider Reason for Referral Outpatient (Routine) - Closed Specialty Diagnoses / Procedures Referred By Contact Refer red To Contact Endocrinology Ramya Oneill M.B.B. S. [facility] [address] [place] [address] Referral ID Status Reason Start Date Expiration Date Visits Requ ested Visits Authorized [id number] Closed 03/23/2018 03/23/2019 1 1 Reason for Visit Reason Comments Obesity Diabetes Mellitus Outpatient (Routine) - Closed Specialty Diagnoses / Referred By Contact Referred To Contact Procedures Reproductive Diagnoses Body Mass Index 50.0 To 59.9 Adult (HCC) Roz Pack M.D. [facility] Endocrinology and [address] [facility] / [place], [place] Endocrinology [phone] Referral ID Status Reason Start Date Expiration Date Visits Requ ested Visits Authorized [id number] Closed 01/30/2018 07/29/2018 3 1 Encounter Details Date Type Department Care Team Description 03/23/2018 Comprehensive Visit Division of Mai, Body Mas s Index 50.0 To 59.9 Adult (HCC) (Primary Dx); Endocrinology in [place], Hyperlipide bianca Mixed; [place], [place] [facility]han[place]on[place]. Hypertension Essential Primary; [address] Diabetes Mellitus Type 2 Hyp erglycemia (HCC) [facility] [id number] [facility] [phone] [place] [address] Social History Tobacco Use Types Packs/Day Years [...] or relatives? How often do you attend anabaptism or More than 4 times per year 06/02/2022 latter day services? Do you belong to any clubs or Yes 06/02/2022 organizations such as anabaptism groups, unions, fraternal or athletic groups, or [...] Sign Reading Time Taken Comments Blood Pressure 117/74 03/23/2018 9:21 AM CDT Pulse 67 03/23/2018 9:21 AM CDT Temperature - - Respiratory Rate - - Oxygen Saturation - - Inhaled Oxygen Concentration - - Weight 157 kg (345 lb 10.9 oz) 03/23/2018 9:21 AM CDT Height 165.1 cm (5' 5) 03/23/2018 9:21 AM CDT Body Mass Index 57.52 03/23/2018 9:21 AM CDT documented in this encounter Consult Notes Ramya Oneill M.B.B.S. - 03/23/2018 12:00 AM CDT SUBJECTIVE REASON FOR CONSULT Evaluation for bariatric surgery. HISTORY OF PRESENT ILLNESS Mr. Murphy is a 48-year-old gentleman who presents for bariatric surgery evaluation. His current weight is nearly 157 kg giving him a BMI of 57.5. He is at his heaviest weight now. His weight-related morbidities are noted to be type 2 diabetes, GERD, hypertension, dyslipidemia, and mechanical arthropathy. There is also the question of sleep apnea, and he has a sleep study coming up. The gentleman is at his heaviest weight now, although he remembers being overweight and obese for a long time. We reviewed his dietary habits in detail. He tends to have other carbohydrate- heavy meals. He is unable to exercise due to lack of time because of work- related responsibilities. No previous history of any weight loss medication use or bariatric procedures. He has been off and on depressed but never treated. He denies any previous addictive behaviors. He has been making changes to his lifestyle in the last few months and has been able to get his hemoglobin A1c down from 12.1 in September of this year to 7.4 now. Rest of his weight-related history is as detailed in the weight management questionnaire. MEDICAL HISTORY 1. Obesity. 2. Type 2 diabetes. 3. Dyslipidemia. 4. Hypertension. 5. GERD. 6. Renal cell carcinoma. 7. Infantile myoclonic seizures. 8. Status post appendectomy. 9. Status post hernia repair. 10. Status post incisional hernia repair. 11. Eczema. 12. Psoriasis. 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 He lives with his parents and is the sole caregiver to them. He hasa girlfriend. He has never been and does not have any children. His parents are in reasonably good health. He smokes an occasional cigar. He very occasionally drinks alcohol. FAMILY HISTORY Notable for obesity in mother and 2 of his brothers. PHYSICAL EXAMINATION General: He does not appear to be in any acute distress. Heart: Regular. Abdomen: Exam is limited by obese body habitus. ASSESSMENT / PLAN #1 Medically complicated obesity with a body mass index of 57.5 #2 Type 2 diabetes mellitus #3 GERD #4 Hypertension #5 Dyslipidemia #6 Question of sleep apnea #7 Mechanical arthropathy Mr. Murphy is interested in bariatric surgery and that is a reasonable consideration at his weight and weight-related morbidities. I reviewed the bariatric surgery approval process with him at length. He has already been set up to see our colleagues in Psychology and has a visit set up with the dietiti an. He recognizes that while bariatric surgery is an excellent consideration for him, it is only a tool and not a cure for weight loss. We therefore discussed the importance of lifelong commitment to healthy lifestyle measures for weight management. I reviewed potential surgeries including vertical sleeve gastrectomy, Johnathan-en-Y gastric bypass procedure, and biliopancreatic diversion with duodenal switch. Given his extremely high BMI, he might be best served with a biliopancreatic diversion. If deemed an appropriate candidate for a bariatric procedure by psychology colleagues, he will be required togo through a behavioral intervention. Once he is getting closer to the behavioral intervention program, he will let me know, and we can then decide about followup evaluation with me and and potentiallybariatric surgery referral. We have given him the brochure on bariatric surgery. He recognizes the need for long-term followup, weight loss potential with these surgeries, and potential short- and long-term complications. He recognizes that if he turns out to have sleep apnea, we will need that treated prior to consideration of bariatric surgery. I will plan to see him back in about 3 months. Mr. Murphy denied any further questions for me at today's visit. PATIENT EDUCATION: Ready to learn. No apparent learning barriers were identified. Learning preferences include listening. Explained diagnosis and treatment plan. Patient/Child/Caregiver expressed understanding of the content. Job ID: [id number] documented in this encounter Plan of Treatment Upcoming Encounters Date Type Specialty Care Team Description 06/26/2022 Appointment Neurology Preet Landeros M.D . [address] [place] [phone] Bria Suh APRN, C.NBonP., M.S.N. [address] [place] [phone] 07/25/2022 Appointment Radiology Preet Landerso M.D . [address] [place], [place] [phone] (Wo rk) Scheduled Referrals Name Type Priority Associated Order Schedule Diagnoses Endocrinology office Outpatient Referral Routine Expected: visit (clinic) 06/21/2018 (Approximate), Expires: 03/23/2021 documented as of this encounter Visit Diagnoses Diagnosis Body Mass Index 50.0 To 59.9 Adult (HCC) - Primary Hyperlipidemia Mixed Hypertension Essential Primary Diabetes Mellitus Type 2 Hyperglycemia ( HCC) documented in this encounter Additional Health Concerns Assessment Noted Time PHQ-9 Depression Total Score: 4 03/23/2018 12:54 PM CD T documented as of this encounter Care Teams Terrazzo Layer Helper Relationship Specialty Start Date End Date Roz Pack M.D. PCP - General Family Medicine 02/25/18 05/29/18 documented as of this encounter
--- OUTSIDE RECORDS SUMMARY | 2022-06-23 22:44 | XMS_ITS | Encounter Summary ---
:1970 Author Organization [facility] Address [address] [place] [address] Care Team Providers Name Role Phone Amanda Barrios APRN, C.NBonPBon Primary Care Provider Reason for Referral Outpatient (Routine) - Closed Specialty Diagnoses / Procedures Referred By Contact Refer red To Contact Endocrinology Carmen Gallo [facility] Santillan, B.Ch. [address] [place] [phone] Referral ID Status Reason Start Date Expiration Date Visits Requ ested Visits Authorized [id number] Closed 02/20/2018 02/20/2019 1 1 utpatient (Routine) - Closed Specialty Diagnoses / Procedures Referred By Contact Kim red To Contact Ophthalmology Diagnoses Diabetes Mellitus Type 2 Hypoglycemia Without Coma (HCC) Carmen Gallo SE, M.B., B.Ch. [address] [place] [address] Referral ID Status Reason Start Date Expiration Date Visits V isits Requested Authorized [id number] Closed Specialty 02/20/2018 02/20/2019 1 1 Services Required Reason for Visit Reason Comments Diabetes Mellitus Consult. Outpatient (Routine) - Closed Specialty Diagnoses / Procedures Referred By Contact Refer red To Contact Reproductive Diagnoses Diabetes Mellitus Type 2 Hypoglycemia Without Coma (HCC) Roz Pack M.D. [facility] Endocrinology and [address] [facility] Infertility / [place], [place] Endocrinology [phone] Referral ID Status Reason Start Date Expiration Date Visits Requ ested Visits Authorized [id number] Closed 01/16/2018 07/15/2018 1 1 Encounter Details Date Type Department Care Team Description 02/20/2018 Comprehensive Visit Department of Gabbie Gallo adam Mellitus Endocrinology in Carmen Johnston, Type 2 Hypo glycemia [place], [place] Dennise SantillanChBon Without Coma (HCC) [address] [place] [phone] Social History Tobacco Use Types Packs/Day Years [...] More than 4 times per year 06/02/2022 bahai services? Do you belong to any clubs [...] or slept in a penitentiary (including now)? Sex Assigned at Date Recorded Male 01/30/2018 9:28 AM CDT documented as of this encounter Last Filed Vital Signs Vital Sign Reading Time Taken Comments Blood Pressure 132/80 02/20/2018 9:48 AM CDT Pulse 78 02/20/2018 9:48 AM CDT Temperature - - Respiratory Rate - - Oxygen Saturation - - Inhaled Oxygen Concentration - - Weight 160 kg (352 lb 4.7 oz) 02/20/2018 9:48 AM CDT Height 166 cm (5' 5.35) 02/20/2018 9:48 AM CDT Body Mass Index 57.99 02/20/2018 9:48 AM CDT documented in this encounter Consult Notes Carmen Gallo M.B., B.Ch. - 02/20/2018 12:00 AM CDT SUBJECTIVE REASON FOR CONSULT Diabetes, obesity. HISTORY OF PRESENT ILLNESS Mr. Murphy is a pleasant 47-year-old gentleman who presents today with his mother. He was diagnosed with type 2 diabetes in 1999. 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 He was on oral medications until about 3 years ago at which time he was initiated on insulin. He was intolerant to metformin with frequent diarrhea and therefore this was discontinued. His current regimen is Basaglar 33 units daily with NovoLog 20 to 25 units with meals. His current BMI is 58. He has not been on a GLP-1 agonist. He has in fact increased the frequency of his meals to 6 times per day as he has had significant hypoglycemia with 2 severe episodes in December and 2017 requiring ER assistance. Both occurred in the middle of the night around 1 to 2 a.m. Since that time he has also had intermittent hypoglycemia usually in the middle of the night. This has lead him to be fearful of sleeping in his bed and he will often sleep in his chair. He will have a bedtimesnack. He has been actively trying to reduce his portion control and sweet intake. He is being followed by a dietitian. He has lost about 8 to 10 pounds in the last 2 months. He is very sedentary. COMPLICATIONS: Eyes He is due for an ophthalmology visit. Denies a history of retinopathy. Neurologic Denies neuropathy. Renal He had a positive microalbumin screen in February of 2017 of 31. He is on an ARB. Creatinine 0.93, 2017. Macrovascular Currently under workup with Cardiology. He has dyslipidemia and his Lipitor was recently increased from 10 to 40 mg. His lipid profile in February of 2017 showed total cholesterol 178, triglycerides 278, HDL 39, LDL of 83. He has hypertension with a blood pressure today of 132/80. He also has a history of obstructive sleep apnea and is due to see Sleep Medicine coming up. Currently not treated with a CPAP. He occasionally smokes cigars but no daily smoking. He had a normal liverfunction test in 2017. MEDICAL HISTORY 1. Hypertension. 2. Dyslipidemia. 3. Type 2 diabetes. 4. Obesity. 5. Obstructive sleep apnea. 6. Renal cell carcinoma status post ablation. 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 Occasional cigar and occasional alcohol. He is not and has no children. FAMILY HISTORY Multiple family members on both sides of the family with type 2 diabetes. Paternal grandfather with cardiovascular disease. No premature coronary artery disease. OBJECTIVE PHYSICAL EXAMINATION General: Mr. Murphy is pleasant, in no acute distress. Exam limited by high BMI. Neck: No lymphadenopathy. Lungs: Clear to auscultation bilaterally. Cardiovascular: Regular rate and rhythm. Systolic murmur at left sternal border. Abdomen: Limited by obesity. Soft and nontender. Scar from previous appendectomy. Extremities: Trace pedal edema. Neurologic: Left facial palsy. ASSESSMENT / PLAN #1 Medically complicated obesity #2 Type 2 diabetes, uncontrolled His has upcoming A1c and we will review. I did review his glucose meter download. He is testing 3 to4 times per day. We discussed diabetes control in general. He is actively trying to lose weight and has a current BMI of 58 g/m2. He has a appointment coming up with a [facility]; however,he is unclear if he is ready to move forward with this at this time. We discussed from a calorie intake standpoint, as well as a diabetes control standpoint, would recommend reducing the amount that hesnacks. We discussed that his glucose readings currently are not fasting and therefore difficult to rely on for dose adjustment. He is currently having 3 snacks per day, in the morning, mid afternoon and bedtime and I would recommend reducing and eliminating them as soon as possible both from a calorie standpoint as well as an insulin adjustment standpoint. I did congratulate him on the amount that he is testing and would continue doing so. We discussed different ways to use NovoLog with his meals, w hether this be a fixed dose or whether he uses insulin to carb ratio. At this time he would rather used the fixed dose. The fact that he is having hypoglycemia overnight indicates that his Basaglar is excessive and I have asked him to reduce this to 28 units. If he begins waking up in the morning withhigh glucose readings, would recommend eliminating the bedtime snack which he is currently doing every night. For dose adjustment, he plans to meet with Bipin Michaels in the upcoming weeks. From medication standpoint otherwise, we discussed restarting metformin but using the extended release preparation and beginning slowly. He should take the medication at the end of the meal. He can start 500 mg per day and increase to a total of 2000 mg per day over the next few weeks depending on tolerance. I also think that he would be a good candidate for a GLP-1 agonist whether this be Victoza or Saxenda; however, I think we should eliminate hypoglycemia at night before we institute this change and we will cons ider this at our next visit in 3 months. From a screening standpoint, I have ordered a microalbumin screen, a repeat lipid profile as well as an eye visit. We will see him back in 3 months with an A1c as well. I see that he will be meeting with the Sleep Medicine for his obstructive sleep apnea. He can keep the appointment with the [facility]ariatric Surgery Group even if he decides that he does not wish to pursue surgery as there may be other options they can provide to help with weight loss in the interim. I will see him again in 3 months. Job ID: [id number]/imx documented in this encounter Plan of Treatment Upcoming Encounters Date Type Specialty Care Team Description 06/26/2022 Appointment Neurology Preet Landeros M.D . [address] [place] [phone] Bria Suh APRN C.N.P., M.S.N. [address] [place] [phone] 07/25/2022 Appointment Radiology Preet Landeros M.D . [address] [place], [place] [phone] (Wo rk) Scheduled Referrals Name Type Priority Associated Diagnoses Order S chedule Ophthalmology - Outpatient Routine Diabetes Mellitus Expecte d: General consult Referral Type 2 Hypoglycemia 02/20 (clinic) Without Coma (HCC) (Approxim ate), Expires: 02/20/2021 Endocrinology office Outpatient Routine Expecte d: visit (clinic) Referral 05/23/2018 (Approximate), Expires: 02/20/2021 documented as of this encounter Results (ABNORMAL) Hemoglobin A1c (05/27/2018 8:48 AM CDT) P athologist Signature Hemoglobin A1c, 6.5 (H) 4.2 - 5.6 05/27/2018 [facility] B % 11:26 AM CDT [facility] Comment: Hemoglobin A1c values greater than [...] Organization Address City/State/ZIP Code Phon e Number [facility] [address] [place] [address] LAB Lipid Panel (05/27/2018 8:48 AM CDT) athologist Signature Cholesterol, 134 mg/dL 05/27/2018 [facility] Total 11:20 AM CDT [facility] LAB Comment: ----REFERENCE VALUE---- Desirable: < 200 Borderline high: 200 - 239 High: > or = 240 Triglycerides 139 mg/dL 05/27/2018 11:20 AM CDT [facility] LAB Comment: ----REFERENCE VALUE---- Normal: <150 Borderline high: 150-199 High: 200-499 Very high: > or =500 Cholesterol, HDL, S 41 >=40 mg/dL 05/27/2018 11:20 AM CDT [facility] LAB Calculated LDL 65 mg/dL 05/27/2018 11:20 AM CDT [facility] Comment: ----REFERENCE VALUE---- Desirable: <100 Above Desirable: 100-129 Borderline high: 130-159 High: 160-189 Very high: > or =190 Cholesterol, Non-HDL, 93 mg/dL 05/27/2018 11:20 A M CDT [facility] Comment: ----REFERENCE VALUE---- Desirable: <130 Above Desirable: 130-159 Borderline high: 160-189 High: 190-219 Very high: > or =220 Specimen Anatomical Collection Method Collection Time Receive d Time (Source) Location / / Volume Laterality Blood (Blood, 05/27/2018 8:48 AM 05/27/20 18 Venous) CDT 10:56 AM CDT Carmen Santillan, B.Ch. LAB BLOOD ADD-ON Performing Organization Address City/State/ZIP Code Phon e Number [facility] [address] [place] [address] LAB Microalbumin, Random, Urine (05/27/2018 8:47 AM CDT) athologist Signature Microalbumin <7.0 mg/L 05/27/2018 [facility] 12:12 PM CDT [facility] Creatinine 51 mg/dL 05/27/2018 [facility] 12:12 PM CDT [facility] Albumin/Creatinin <14 <17 mg/g 05/27/2018 [facility] e Ratio 12:12 PM CDT [facility] Comment: This ratio may not correspond [...] LAB URINE ORDERAB LES Performing Organization Address City/State/ZIP Code Phon e Number [facility] [address] [place] [address] LAB documented in this encounter Visit Diagnoses Diagnosis Diabetes Mellitus Type 2 Hypoglycemia Wi thout Coma (HCC) documented in this encounter Care Teams Auto Service Representative Relationship Specialty Start Date End Date Amanda Barrios APRN, C.N.P. PCP - General 02/27/17 02/24/182199 [address] [address] documented as of this encounter
--- OUTSIDE RECORDS SUMMARY | 2022-06-23 22:44 | XMS_ITS | Encounter Summary ---
:1970 Author Organization [facility] Address [address] [place] [address] Care Team Providers Name Role Phone Roz Pack M.D. Primary Care Provider Reason for Visit Reason Comments Diabetes Outpatient (Routine) - Closed Specialty Diagnoses / Procedures Referred By Contact Refer red To Contact Family Medicine Diagnoses Diabetes Mellitus Type 2 Hyperglycemia (HCC) Amanda Barrios APRN, BEATAS [facility] C.N.P. [address] [phone] Referral ID Status Reason Start Date Expiration Date Visits Requ ested Visits Authorized [id number] Closed 09/17/2017 03/16/2018 1 1 Encounter Details Date Type Department Care Team Description 03/30/2018 Office Visit Department of Family Supriya Barrios APRN, C.N.P. [address] [place] [phone] Hypertension Essential Primary (Primary Dx); Medicine, Roz Justin M.D. [address] [place] [address] Diabetes Mellitus Type 2 Hyperglycemia ( HCC); [facility] [place] [address] [place] [phone] Social History Tobacco Use Types Packs/Day Years [...] or relatives? How often do you attend confucianist or More than 4 times per year 06/02/2022 restorationism services? Do you belong to any clubs or Yes 06/02/2022 organizations such as confucianist groups, unions, fraternal or athletic groups, or [...] Sign Reading Time Taken Comments Blood Pressure 138/76 03/30/2018 9:24 AM CDT Pulse 72 03/30/2018 9:24 AM CDT Temperature 36.2 ??C (97.2 ??F) 03/30/2018 9:24 AM CDT Respiratory Rate 16 03/30/2018 9:24 AM CDT Oxygen Saturation - - Inhaled Oxygen Concentration - - Weight 158 kg (347 lb 12.4 oz) 03/30/2018 9:24 AM CDT Height - - Body Mass Index 57.87 03/23/2018 2:37 PM CDT documented in this encounter Patient Instructions Patient InstructionsRoz Pack M.D. - 03/30/2018 9:30 AM CDT 1. Diabetes Mellitus Type 2 Hyperglycemia (HCC): well-controlled. Hemoglobin A1C at 7.4%. -Continue Basaglar 33 units at bedtime. -Novolog 20 units per meal but be careful at lunch. Try 15-10 units at lunch time -Continue metformin 500 mg daily. -Will add Victoza daily. -Follow up in 3 months -Has an appointment with bariatric surgery - Family Medicine office visit (clinic) - liraglutide (VICTOZA) 0.6 mg/0.1 mL (18 mg/3 mL) injection; Apply inject 0.6 mg daily for one weekthen increase it 1.2 mg daily Dispense: 3 mL; Refill: 3 2. Hypertension Essential Primary: well-controlled -Valsartan 80 mg daily documented in this encounter Progress Notes Roz Pack M.D. - 03/30/2018 9:30 AM CDT SUBJECTIVE: Paul Murphy Is a 48 y.o. male who presents today for follow up of diabetes mellitus type Type 2 since February 2000. Patient states he had several appointment with several specialist for the past couple months. Patient reports he has been having episode of hypoglycemia for the past couple days especially during the dinner time. He has been taking Basaglar 33 units at bedtime and NovoLog 20 units with each meal. He has done significant lifestyle modification for the past couple months Patient is being treated with insulin injections. Lantus : 33 units at bedtime. NovoLo-25 units per meal(depends of number of carbs) Patient glucose self monitoring as follows:does self-monitor blood glucose readings the following times of the day: fasting, before meals, bedtime and when experiencing hypoglycemic symptoms. Blood glucose readings: Date Breakfast Lunch Dinner Bedtime 03/15/2018 150 195(20) 93(20) 86(33 Lantus) 03/16/2018 149(20) 44(20) 114(o) BG(33 Lantus) 03/17/2018 120(20) 122(20) 68(18) 120(29) 03/18/2018 116(20) 119(20) 232(20) 106(33Lantus) 03/19/2018 140(20) 156(0) 159(20) 191(33 Lantus) 03/20/2018 133(20) 121(20) 141( 20) 154(33 Lantus) 03/21/2018 177(20) 173(20) 188(25) 165(35 Lantus) 03/22/2018 102(8) 114(20) 96(20) 228(33 Lantus) . Results as follows: Lab Results Component Value Date HGBA1C 7.4 (H) 03/20/2018 HGBA1C 9.7 (A) 12/17/2017 HGBA1C 12.1 (H) 09/17/2017 Lab Results Component Value Date ALBCREARATIO 22 (H) 03/20/2018 LDLCALC <30 03/20/2018 CREATININE 1.01 03/20/2018 BP: BP Readings from Last 3 Encounters: 03/30/18 138/76 03/23/18 117/74 03/02/18 136/73 generally well controlled with most/all readings less than 140/90 He is asymptomatic and specifically denies blurry vision, chest pain, shortness of breath, nausea and vomiting. Positive for occasional headache Habits: Social History Substance Use Topics ??? Smoking status: Current Some Day Smoker Types: Cigars ??? Smokeless tobacco: Never Used Comment: An occasional cigar ??? Alcohol use Yes Comment: Occasionally have a scotch Diet: Low-carbs diet ASA: No Exercise: exercises 3 times a week Current Concerns Patient : has had some concerns. Patient states he would like to start GLP-1 agonist since it helps with weight loss and diabetes. His hemoglobin A1C came down to 7.4%. Patient Active Problem List Diagnosis ??? Hypertension Essential Primary ??? Diabetes Mellitus Type 2 Hyperglycemia (HCC) ??? Carcinoma Renal Cell Left (HCC) ??? 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 Body Mass Index 50.0 To 59.9 Adult (HCC) ??? Eczema ??? Hyperlipidemia Mixed ??? Psoriasis ??? Elevated Troponin ??? Tobacco Use Medication allergies and current medications reviewed. See EMR Review Of Systems no polyuria or polydipsia, no chest pain, dyspnea or TIAs, no numbness, tingling or pain in extremities, no unusual visual symptoms. He had couple hypoglycemia episodes especially at dinner OBJECTIVE: EXAM: BP 138/76 (BP Location: Left arm) Pulse 72 Temp 36.2 ??C Resp 16 Wt (!) 157.7 kg BMI 57.87kg/m?? Body mass index is 57.87 kg/m??. Physical Exam Gen: healthy, alert and no distress. Eyes: EOMI, PERRL Lungs: lungs clear to auscultation- no rales, rhonchi or wheezes Heart: Regular rates and rhythm, normal S1, S2, no S3 or S4 and no murmur. Abdomen:Soft, nontender, no masses and bowel sounds. ASSESSMENT & PLAN: DiabetesType II: 1. Diabetes Mellitus Type 2 Hyperglycemia (HCC): well-controlled. Hemoglobin A1C at 7.4%. Glycemic Control: Diabetes mellitus Type II, under excellent control. Last A1C was Lab Results Component Value Date HGBA1C 7.4 (H) 03/20/2018 Planning: Encouraged aerobic exercise. Reminded to get yearly retinal exam. Discussed ways to avoid symptomatic hypoglycemia. -Continue Basaglar 33 units at bedtime. -Novolog 20 units per meal but be careful at lunch time since patient has been eating mostly fruits and vegetables during lunch time. Will do trial of 15-10 units at lunch time -Continue metformin 500 mg daily. -Added Victoza 0.6 mg injection daily for one week then increase it to 1.2 mg daily. -Follow up in 3 months -Has an appointment with bariatric surgery. - Family Medicine office visit (clinic) - liraglutide (VICTOZA) 0.6 mg/0.1 mL (18 mg/3 mL) injection; Apply inject 0.6 mg daily for one weekthen increase it 1.2 mg daily Dispense: 3 mL; Refill: 3 2. Hypertension Essential Primary: well-controlled Blood pressure: Goal 140/90 At goal? Yes Planning: Provided counseling on exercise - increase activity as tolerated, preferably 3-4 days per week of 30+ min of moderate physical activity Maintain a healthy weight; work towards optimal BMI if overweight or obese Check blood pressure once every 3 months. Cholesterol: Control: controlled Goal LDL < LDL goal is under 80 Planning : Medications: None . Smoking: At goal? No, encouraged complete smoking cessation. ASA: At goal? Yes, he does not meet cardiovascular criteria for aspirin. Aspirin : There is some evidence to suggest that enteric coated low-dose (81 mg) aspirin may not provide sufficient anti-platelet effects. Recommend switch to non-enteric coated (chewable) aspirin. Other orders: Eye referral Yes, he has an appointment with eye doctor on May 11, 2018 Microalbumin creatitine ratio Yes, done in March 20, 2018 Flu shot : Yes, not due until May 2018 3. Obstructive Sleep Apnea Adult Reviewed polysomnography results with the patient which indicates he met criteria for severe obstructive sleep apnea with obstructive sleep hypopneas. Will need CPAP machine. Has an appointment with Dr. Elder on Apr 16, 2018. A total of 40 minutes were spent [id number] with the patient during this encounter and 30 minutes were spent on counseling, discussing the plan and coordination of care. Roz Pack M.D. documented in this encounter Plan of Treatment Upcoming Encounters Date Type Specialty Care Team Description 06/26/2022 Appointment Neurology Preet Landeros M.D . [address] [place] [phone] Bria Suh APRN, C.N.P., M.S.N. [address] [place] [phone] 07/25/2022 Appointment Radiology Preet Landeros M.D . [address] [place] [phone] (Wo rk) documented as of this encounter Visit Diagnoses Diagnosis Hypertension Essential Primary - Primary Diabetes Mellitus Type 2 Hyperglycemia ( HCC) Obstructive Sleep Apnea Adult documented in this encounter Additional Health Concerns Assessment Noted Time PHQ-9 Depression Total Score: 4 03/23/2018 12:54 PM CD T documented as of this encounter Care Teams Bar Machine Operator Multiple Spindle Relationship Specialty Start Date End Date Roz Pack M.D. PCP - General Family Medicine 02/25/18 05/29/18 documented as of this encounter
--- OUTSIDE RECORDS SUMMARY | 2022-06-23 22:44 | XMS_ITS | Encounter Summary ---
:1970 Author Organization [facility] Address [address] [place] [address] Care Team Providers Name Role Phone Amanda Barrios APRN, C.NPietro Primary Care Provider [phone] Encounter Details Date Type Department Care Team Description 01/26/2018 Clinical Communication Department of Rachel Hunter [facility] L.P.N. in [facility] [address] [facility] [address] [place] [phone] Social History Tobacco Use Types Packs/Day Years Used Date Smoking Tobacco: Former Smokeless Tobacco: Never Alcohol Use Standard Drinks/Week Comments Yes 0 (1 standard drink = 0.6 oz pure alcoho l) occassionally twice monthly Alcohol Habits Answer Date Recorded How often do you have a drink containing Monthly or less 06/02/2022 alcohol? How many drinks containing alcohol do you 1 or 2 06/02/2022 have on a typical day when you are drinking? How often do you have six or more drinks on Never 06/02/2022 one occasion? Comment: occassionally twice monthly 09/18/2017 Social Isolation Answer Date Recorded In a typical week, how many times do you More than three roverto es a week 06/02/2022 talk on the phone with family, friends, or neighbors? How often do you get together with friends Three times a wee k 06/02/2022 or relatives? How often do you attend mormon or More than 4 times per year 06/02/2022 jainism services? Do you belong to any clubs [...] this encounter Miscellaneous Notes Telephone Encounter - Rachel Hunter L.P.N. - 01/26/2018 12:58 PM CDT Phone message left for patient requesting a return call back. Calling to ask patient if he would be interested in moving his Cardiology appointment up to either Friday in [place] or in [place]. Patient is scheduled for 01/30/18 in [place]. documented in this encounter Plan of Treatment Upcoming Encounters Date Type Specialty Care Team Description 06/26/2022 Appointment Neurology Preet Landeros M.D . [address] [place] [phone] Bria Suh APRN, C.N.P., M.S.N. [address] [place] [phone] 07/25/2022 Appointment Radiology Preet Landeros M.D . [address] [place] [phone] (Wo rk) documented as of this encounter Visit Diagnoses Not on filedocumented in this encounter Care Teams Scleroscope Tester Relationship Specialty Start Date End Date Amanda Barrios, BRET, C.N.P. PCP - General 02/27/17 02/24/[address] [phone] documented as of this encounter
--- OUTSIDE RECORDS SUMMARY | 2022-06-23 22:44 | XMS_ITS | Encounter Summary ---
:1970 Author Organization [facility] Address [address] [place] [address] Care Team Providers Name Role Phone Roz Pack M.D. Primary Care Provider Encounter Details Date Type Department Care Team Description 03/20/2018 Hospital Encounter Department of Amanda Barrios s Mellitus Type Laboratory Medicine J, BRET, C.N .P. 2 Hyperglycemia (HCC) in [place], [address] [place], [place] [address] [address] [place], [place] [phone] [address] (Work) [phone] Social History Tobacco Use Types Packs/Day Years [...] Skilled Nursing Use Of Insulin Active (HCC) metFORMIN XR [...] Skilled Nursing Use Of Insulin Active (HCC) omeprazole Take 20 mg by mouth 0 08/03 (for_PriLOSEC) 20 mg every morning before capsule breakfast. ONETOUCH ULTRA TEST 0 12/18/201703/23 strips ONETOUCH VERIO HIGH 0 02/24/201803/23 CONTROL solution pen needle, diabetic Inject insulin 4 200 each 11 8 03/23/2018 (LITE TOUCH INSULIN PEN times daily. 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 Primary documented as of this encounter Plan of Treatment Upcoming Encounters Date Type Specialty Care Team Description 06/26/2022 Appointment Neurology Preet Landeros M.D . [address] [place] [phone] Bria Suh APRN, C.N.P., M.S.N. [address] [place] [phone] 07/25/2022 Appointment Radiology Preet Landeros M.D . [address] [place], [place] [phone] (Wo rk) documented as of this encounter Procedures Procedure Name Priority Date/Time Associated Diagnosis Comme nts ALBUMIN, RANDOM, U Routine 03/20/2018 8:50 AM Diabetes Mellitu s Type Results for this CDT 2 Hyperglycemia (HCC) proced ure are in the results section. documented in this encounter Results (ABNORMAL) Microalbumin, Random, Urine (03/20/2018 8:50 AM CDT) Analysis Performed At Patho logist Time Signature Microalbumin 22.8 mg/L 03/20/2018 [facility] 12:24 PM T [facility] Creatinine 102 mg/dL 03/20/2018 [facility] 12:24 PM [facility] Albumin/Creatinin 22 (H) <17 mg/g 03/20/2018 [facility] e Ratio 12:24 PM [facility] Specimen Anatomical Collection Method Collection Time Receive d Time (Source) Location / / Volume Laterality Urine 03/20/2018 8:50 AM 8 CDT 11:14 AM CDT Amanda Barrios APRN C.N.P. LAB URINE ORDERABLES Performing Organization Address City/State/ZIP Code Phon e Number [facility] [address] [place] [address] LAB documented in this encounter Visit Diagnoses Diagnosis Diabetes Mellitus Type 2 Hyperglycemia ( HCC) documented in this encounter Care Teams Naprapath Relationship Specialty Start Date End Date Roz Pack M.D. PCP - General Family Medicine 02/25/18 05/29/18 documented as of this encounter
--- OUTSIDE RECORDS SUMMARY | 2022-06-23 22:44 | XMS_ITS | Encounter Summary ---
:1970 Author Organization [facility] Address [address] [place] [address] Care Team Providers Name Role Phone Amanda Barrios APRN C.N.PBon Primary Care Provider [phone] Reason for Visit Outpatient (Routine) - Closed Specialty Diagnoses / Procedures Referred By Contact Refer red To Contact Nutrition Diagnoses Diabetes Mellitus Type 2 Hypoglycemia Without Coma (HCC) Roz Pack M.D. [facility] [address] [place] [address] Referral ID Status Reason Start Date Expiration Date Visits Requ ested Visits Authorized [id number] Closed 01/16/2018 07/15/2018 1 1 Encounter Details Date Type Department Care Team Description 02/13/2018 Clinical Support Department of Roz Pack M .D. [address] [place] [address] Diabetes Mellitus Nutrition in Bernie Meneses RDN, LD [address] [place] [address] Type 2 Hypoglycemia [place], [place] Without Coma (HCC) [address] [place] [address] Social History Tobacco Use Types [...] Oxygen Concentration - - Weight 160 kg (353 lb 9.9 oz) 02/16/2018 2:09 PM CDT Height 169 cm (5' 6.54) 02/16/2018 2:09 PM CDT Body Mass Index 56.16 02/16/2018 2:09 PM CDT documented in this encounter Patient Instructions Patient InstructionsTerBernie bender RDN, LD - 02/13/2018 12:30 PM CDT 1.) Eat bedtime snack nightly, aim for 15-30 grams carbohydrate, always include protein with carbohydrate- see list provided 2.) Aim to have 4-5 carb choices per meal (3x/day) and 15-30 grams per snack (may 1-3x/day) always ensuring a bedtime snack. Ideally eating every 3-4 hours during the day 3.) Do not want to go over 10-12 hours without eating (overnight), may result in hyperglycemia 4.) Aim for a total of 16-20 carb choices per day 5.) May have dessert/sweet- limit to 1 serving size on occasion documented in this encounter Progress Notes Bernie Meneses RDN, LD - 02/13/2018 12:30 PM CDT REASON FOR VISIT: Diabetes Education Type of Visit: Diabetes MNT Referred by: Roz Pack M.D. HISTORY OF PRESENT ILLNESS Diabetes Visit type: Initial Diabetes type: Type 2 Onset time: dx: 1999. A1C target: <7 Hypoglycemia symptoms: confusion and speech difficulty Hypoglycemia complications comment: 2 ER visits recently Current treatments: Diet and insulin injections Monitoring regimen: Frequency home blood tests: 4-6x/day. Blood glucose ranges (mg/dl) comment: Patient reports majority of blood sugars range from 150-mid 200's. He has not had any lows since last ER visit Current diet: Diabetic, generally healthy and low fiber Meal planning: Avoidance of concentrated sweets and carbohydrate counting Dietitian visit: yes Exercise: Rarely PRESENT FOR VISIT: Patient was seen today for nutrition education related to diabetes management andhypoglycemia recently. PERTINENT MEDICATIONS: Diabetes medications include: Novolog, Basaglar NUTRITION ASSESSMENT Patient reports he recently has been recording his intake over the past month as he is trying to bemore mindful and aware of how his food consumption relates to his blood sugars. He eats 3 meals and 1-2 snacks per day. He reports he was told to eat 3-4 carb choices for meals and 1-2 for snacks. He reports some days feeling full with this and other days he reports being hungry and feels he is not getting enough. He drinks iced-coffee with sugar, sometimes regular and occasionally artificial sugar, iced-tea- no sugar added. No pop. He does drink whole milk and adds this to his coffee and cereal forbreakfast. He has been trying to cut down on eating out and only eating 1/2 the portion he is served. 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 No structured activity program. ANTHROPOMETRICS Height: 169 cm Weight: (!) 160.4 kg BMI: 56.16 kg/m2 BMI (Calculated): 56.2 kg/m?? % Weight change in last 3 months: -1.11 % % Weight change in last 6 months: 0.56 MEDICATIONS: reviewed and noted PERTINENT LABS: Potassium, S Date Value Ref Range Status 12/17/2017 3.7 3.4 - 5.3 Final Bld Urea Nitrog(BUN), S Date Value Ref Range Status 12/17/2017 17 4 - 21 Final Creatinine, S Date Value Ref Range Status 12/17/2017 0.8 0.6 - 1.3 Final Cholesterol, Total, S Date Value Ref Range Status 02/13/2017 178 <=199 MGDL Final Triglycerides, S Date Value Ref Range Status 02/13/2017 278 (H) <=149 MGDL Final HX HDL Date Value Ref Range Status 02/13/2017 39 (L) >=40 MGDL Final Calculated LDL Date Value Ref Range Status 02/13/2017 83 <=129 MGDL Final Hemoglobin A1c, B Date Value Ref Range Status 12/17/2017 9.7 (A) 4.0 - 6.0 Final 09/17/2017 12.1 (H) 4.2 - 5.6 % Final SOCIAL HISTORY: Living arrangement: Lives with parents. 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 Diagnosis Plan 1. Diabetes Mellitus Type 2 Hypoglycemia Without Coma (HCC) Nutrition - Medical nutrition therapy consult (clinic) Interventions: Nutrition counseling Additional information related to diabetes education/nutrition intervention: RD discussed education on basic physiology of blood sugars and pathophysiology of diabetes includinginsulin production changes, insulin resistance and impact of obesity on disease progression. RD reviewed concepts of carbohydrate counting including portion sizes, how to read a label, menu planning, timing of meals and how to balance carbohydrate foods with protein/fat food choices to achieve satietywhile controlling overall calorie/carbohydrate intake. Encouraged patient to eat a bedtime snack as often his last meal is at 6-6:30 pm and he does not eat breakfast until 7-9 am the following morning.Discussed healthy bedtime snacks and importance of eating consistent meals/snacks throughout the dayand not skipping these and this can result in hypoglycemia. Also discussed avoiding refined carbohydrates as these are going to result in hyperglycemia post meal and potentially reactive hypoglycemia after. 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 Also discussed importance of physical activity and needing to find some for of movement/activity he can do to help promote weight loss and improvement in blood sugar control. Additional education materials provided: Smart Snacks (AND) Sample meal plans NUTRITION PLAN: Educated and discussed healthy eating plan for diabetes management. MONITORING AND EVALUATION: Nutrition Indicator Indicator/Desired Outcome: Follow carbohydrate controlled meal plan Indicator 2/Desired Outcome: Increase physical activity Patient Goal(s): 1.) Eat bedtime snack nightly, aim for 15-30 grams carbohydrate, always include protein with carbohydrate- see list provided 2.) Aim to have 4-5 carb choices per meal (3x/day) and 15-30 grams per snack (may 1-3x/day) always ensuring a bedtime snack. Ideally eating every 3-4 hours during the day 3.) Do not want to go over 10-12 hours without eating (overnight), may result in hyperglycemia 4.) Aim for a total of 16-20 carb choices per day 5.) May have dessert/sweet- limit to 1 serving size on occasion FOLLOW UP PLAN: 1. Patient is provided with contact information and encouraged to call with questions or concerns. 2. Encouraged patient to follow up per patient preference. ASSESSMENT / PLAN Medication Changes: No DSMS Plan: This personalized follow-up plan for on-going self-management support was developed collaboratively with the patient. DSMS Plan Details: Follow up with Primary Provider Time spent with patient (minutes): 60 Minutes documented in this encounter Plan of Treatment Upcoming Encounters Date Type Specialty Care Team Description 06/26/2022 Appointment Neurology Preet Landeros M.D . [address] [place] [phone] Bria Suh APRN, C.N.P., M.S.N. [address] [place] [phone] 07/25/2022 Appointment Radiology Preet Landeros M.D . [address] [place], [place] [phone] (Wo rk) documented as of this encounter Visit Diagnoses Diagnosis Diabetes Mellitus Type 2 Hypoglycemia Wi thout Coma (HCC) documented in this encounter Care Teams Nurse Orthopedic Relationship Specialty Start Date End Date Amanda Barrios APRN, C.N.P. PCP - General 02/27/17 02/24/18 [address], [place] [address] documented as of this encounter
--- OUTSIDE RECORDS SUMMARY | 2022-06-23 22:44 | XMS_ITS | Encounter Summary ---
:1970 Author Organization [facility] Address [address] [place] [address] Care Team Providers Name Role Phone Amanda Hairston APRN, C.N.P. Primary Care Provider [phone] Reason for Visit Reason Onset Date Comments Post Hospital Follow-up 12/19/2017 Encounter Details Date Type Department Care Team Description 12/19/2017 Clinical Communication Department of Amanda Hairston [facility] Family Medicine, BRET Johnston, Follow-up [facility], [place], [place] [address] [place] [phone] Social History Tobacco Use Types Packs/Day Years [...] More than 4 times per year 06/02/2022 moravian services? Do you belong to any clubs [...] this encounter Miscellaneous Notes Telephone Encounter - Katerina Clark RIvelisse. - 12/19/2017 10:09 AM CDT We do not have access to [facility] records, so no call will be done Telephone Encounter - Jessica Lizama - 12/19/2017 9:55 AM CDT Hosp follow up with amanda hairston on 12/22 Discharged on 12/18 [facility] diabetic reaction documented in this encounter Plan of Treatment Upcoming Encounters Date Type Specialty Care Team Description 06/26/2022 Appointment Neurology Preet Landeros M.D . [address] [place] [phone] Bria Suh APRN, C.N.P., M.S.N. [address] [place] [address] 07/25/2022 Appointment Radiology Preet Landeros M.D . [address] [place], [place] [phone] (Wo rk) documented as of this encounter Visit Diagnoses Not on filedocumented in this encounter Care Teams Supervisor Residential Relationship Specialty Start Date End Date Amanda Hairston, BRET, C.N.P. PCP - General 02/27/17 02/24/18 [address] [place] [address] documented as of this encounter
--- OUTSIDE RECORDS SUMMARY | 2022-06-23 22:44 | XMS_ITS | Encounter Summary ---
:1970 Author Organization [facility] Address [address] [place] [address] Care Team Providers Name Role Phone Amanda Barrios APRN, C.NBonPBon Primary Care Provider [phone] Reason for Referral Outpatient (Routine) - Closed Specialty Diagnoses / Procedures Referred By Referred To Contact Contact Reproductive Diagnoses Diabetes Mellitus Type 2 Hyperglycemia (HCC) Body Mass Index 50.0 To 59.9 Adult (HCC) Roz Pack M.D. [facility] Endocrinology and [address] [facility] / [place], [place] Endocrinology [phone] Referral ID Status Reason Start Date Expiration Date Visits Requ ested Visits Authorized [id number] Closed 01/30/2018 07/29/2018 1 1 utpatient (Routine) - Closed Specialty Diagnoses / Referred By Contact Referred To Contact Procedures Reproductive Diagnoses Body Mass Index 50.0 To 59.9 Adult (HCC) Roz Pack M.D. [facility] Endocrinology and [address] [place] [address] Endocrinology [phone] Referral ID Status Reason Start Date Expiration Date Visits Requ ested Visits Authorized [id number] Closed 01/30/2018 07/29/2018 3 1 Reason for Visit Reason Comments Follow-up Appointment Request (Routine) - Closed Specialty Diagnoses / Procedures Referred By Contact Refer red To Contact Family Medicine Referral ID Status Reason Start Date Expiration Date Visits Requ ested Visits Authorized [id number] Closed 01/27/2018 07/26/2018 1 Encounter Details Date Type Department Care Team Description 01/30/2018 Office Visit Department of Family Roz Pack Diabet es Mellitus Type 2 Hyperglycemia (HCC) (Primary Dx); MedicineJuwan M.D. Body Mass Index 50.0 To 59.9 Adult (HCC) ; Clinic, in [address] Hypertension Essential Primary [place], [place] [address] [address] [place], [place] [phone] [address] (Work) [phone] Social History Tobacco Use Types Packs/Day Years [...] or relatives? How often do you attend temple or More than 4 times per year 06/02/2022 yazidi services? Do you belong to any clubs or Yes 06/02/2022 organizations such as temple groups, unions, fraternal or athletic groups, or [...] or slept in a m[facility]p (including now)? Sex Assigned at Date Recorded Male 01/30/2018 9:28 AM CDT documented as of this encounter Last Filed Vital Signs Vital Sign Reading Time Taken Comments Blood Pressure 118/60 01/30/2018 1:08 PM CDT Pulse 84 01/30/2018 1:08 PM CDT Temperature 37.2 ??C (99 ??F) 01/30/2018 1:08 PM CDT Respiratory Rate 16 01/30/2018 1:08 PM CDT Oxygen Saturation - - Inhaled Oxygen Concentration - - Weight 161 kg (353 lb 15.2 oz) 01/30/2018 1:08 PM CDT Height - - Body Mass Index 56.21 01/30/2018 10:17 AM CDT documented in this encounter Patient Instructions Patient InstructionsRoz Pack M.D. - 01/30/2018 1:30 PM CDT 1. Diabetes Mellitus Type 2 Hyperglycemia (HCC) -Increase Basaglar to 33 units at bedtime. -Continue NovoLog 20 units three times per day. -Schedule an appointment with extension educator and distribution operation supervisor -Will start PA on GLP-agonist to help with diabetes or weight loss. - Endocrinology - Diabetes consult (clinic); Future 2. Body Mass Index 50.0 To 59.9 Adult ([facility]) - Endocrinology - Bariatric consult (clinic); Future - Endocrinology - Diabetes consult (clinic); Future 3. Hypertension Essential Primary: well-controlled. -Continue current blood pressure documented in this encounter Progress Notes Roz Pack M.D. - 01/30/2018 1:30 PM CDT SUBJECTIVE: Paul Murphy Is a 47 y.o. male who presents today for follow up of diabetes mellitus type Type 2 diagnosed since February 2000. Patient had severe episodes of hypoglycemia for the past couple monthswhich required ED visit. Since last clinic visit, patient states he had no episodes of hypoglycemia and his blood glucose has been coming down. Patient states he has started low- calorie diet recently which he notices only 2 lbs weight loss for the past 2 weeks. Patient is being treated with insulin(Basaglar 30 units at bedtime, NovoLog 20 units TID). Patient glucose self monitoring as follows:does self-monitor blood glucose readings the following times of the day: fasting and 2-hours post-prandial. . Results as follows: Fasting glucose: 202-165 Postprandial: 104-247 Lab Results Component Value Date HGBA1C 9.7 (A) 12/17/2017 HGBA1C 12.1 (H) 09/17/2017 HGBA1C 10.6 (H) 05/16/2017 Lab Results Component Value Date ALBCREARATIO 31 (H) 02/13/2017 LDLCALC 83 02/13/2017 CREATININE 0.8 12/17/2017 BP: BP Readings from Last 3 Encounters: 01/30/18 118/60 01/30/18 144/65 01/16/18 130/68 generally well controlled with most/all readings less than 140/90 He is asymptomatic and specifically denies headache, blurry vision, chest pain, shortness of breath,nausea, vomiting, confusion and weakness. Habits: Social History Substance Use Topics ??? Smoking status: Light Tobacco Smoker ??? Smokeless tobacco: Never Used Comment: Cigar ??? Alcohol use Yes Comment: Rare Diet: Low-carbs diet. Patient states he has been starting low-calorie diet, portion control and self-monitoring. ASA: No. He does not meet criteria cardiovascular risk. Exercise: not active Current Concerns Patient : denies any concerns or issues. Patient states he had no episodes of hypoglycemia. Patient states he has been taking 20 units of Novolog three times per day and 30 units of Basaglar at bedtime. Patient Active Problem List Diagnosis ??? Hypertension Essential Primary ??? Diabetes Mellitus Type 2 Hyperglycemia (HCC) ??? Carcinoma Renal Cell Left (HCC) ??? General Farmer Use Of Insulin Active (HCC) ??? Body Mass Index 50.0 To 59.9 Adult (HCC) ??? Eczema ??? Hyperlipidemia Mixed ??? Psoriasis ??? Elevated Troponin Medication allergies and current medications reviewed. See EMR Review Of Systems no polyuria or polydipsia, no chest pain, dyspnea or TIAs, no numbness, tingling or pain in extremities, no unusual visual symptoms, no hypoglycemia, no medication side effects noted Constitutional: Positive for generalized weakness. Neurological: Positive for numbness or shooting pain in hands, arms, legs, or feet, headaches and weakness in arms or legs. OBJECTIVE: EXAM: BP 118/60 (BP Location: Right arm, Patient Position: Sitting, Cuff Size: Large) Pulse 84 Temp 37.2 ??C (Temporal) Resp 16 Wt (!) 160.6 kg BMI 56.21 kg/m?? Body mass index is 56.21 kg/m??. Physical Exam Gen: healthy, alert and no distress. Eyes: EOMI, PERRL Lungs: lungs clear to auscultation- no rales, rhonchi or wheezes Heart: Regular rates and rhythm, normal S1, S2, no S3 or S4 and no murmur. ASSESSMENT & PLAN: DiabetesType II: Glycemic Control: Diabetes mellitus Type II, under poor control. Last hemoglobin A1C is 9.7% on December 17, 2017. His sugars has been improving for the past couple weeks. No episodes of hypoglycemia for the past 2 weeks. Last A1C was Lab Results Component Value Date HGBA1C 9.7 (A) 12/17/2017 Planning: Counseling at today's visit: set a weight loss goal of 35 lbs over the next 6 month, discussed the advantages of a diet low in carbohydrates and reminded to check sugars regularly and to bring readings in at the time of the next visit. Encouraged aerobic exercise. Increased dose of insulin: Basaglar to 33 units at bedtime and continue Novolog 20 units TID . -Patient would also benefit from GLP-agonist to added to regimen to help with weight loss and diabetes. He has an appointment with endocrinology on February 20, 2018 and will let endo decide if they wouldlike to add GLP-1 agonist medication. -Encouraged to schedule an appointment with distribution operation supervisor and extension educator to help with weight lossand calorie count -Given his BMI of 56, I have placed referral for bariatric consult at [place]. -ADA recommended fasting glucose goal of 80 to 130 mg per dL and two-hour postprandial goal of less than 180 mg per dL -AACE/VERENICE guideline recommended a fasting glucose goal of 70 to 110 mg per dL and two-hour post-prandial goal of less than 140 mg per dL. -Dietary changes stressed, low carb by ratio. Avoid snacks, avoid small frequent meals - Endocrinology - Bariatric consult (clinic); Future - Endocrinology - Diabetes consult (clinic); Future Blood pressure: Goal 140/90 At goal? Yes Planning: Maintain a healthy weight; work towards optimal BMI if overweight or obese Check blood pressure once every 3 months. Cholesterol: Control: good Goal LDL < LDL goal is under 100 Planning : Medications: atorvastatin . Smoking: At goal? Yes ASA: At goal? No, patient does not meet criteria for cardiovascular. A total of 25 minutes were spent [id number]-[id number] with the patient during this encounter and 20 minutes were spent on counseling, discussing the plan and coordination of care. Roz Pack M.D. documented in this encounter Plan of Treatment Upcoming Encounters Date Type Specialty Care Team Description 06/26/2022 Appointment Neurology Preet Landeros M.D . [address] [place] [phone] Bria Suh APRN, C.N.P., M.S.N. [address] [place] [phone] 07/25/2022 Appointment Radiology Preet Landeros M.D . [address] [place] [phone] (Wo rk) Scheduled Referrals Name Type Priority Associated Diagnoses Order S chedule Endocrinology - Outpatient Routine Body Mass Index 50.0 Expe cted: Bariatric consult Referral To 59.9 Adult ([facility]) (clinic) (Approximate), Expires: 01/30/2021 Endocrinology - Outpatient Routine Diabetes Mellitus Expecte d: Diabetes consult Referral Type 2 Hyperglycemia (clinic) ([facility]) (Approximate), Body Mass Index 50.0 Expires : To 59.9 Adult ([facility]) 01/31/20 21 documented as of this encounter Visit Diagnoses Diagnosis Diabetes Mellitus Type 2 Hyperglycemia ( [facility]) - Primary Body Mass Index 50.0 To 59.9 Adult ([facility]) Hypertension Essential Primary documented in this encounter Care Teams Manager Leasing Relationship Specialty Start Date End Date Amanda Barrios, BRET, C.N.P. PCP - General 02/27/17 02/24/18 [address] [place] [address] documented as of this encounter
--- OUTSIDE RECORDS SUMMARY | 2022-06-23 22:44 | XMS_ITS | Encounter Summary ---
:1970 Author Organization [facility] Address [address] [place] [address] Care Team Providers Name Role Phone Roz Pack M.D. Primary Care Provider Reason for Visit Reason Comments Med Refill Encounter Details Date Type Department Care Team Description 02/25/2018 Refill Department of Family Medicine, Mayda Barrios APRN, Med Refill [facility], in [place], [place] [address] [phone] [place] [address] [phone] Social History Tobacco Use Types Packs/Day Years [...] Telephone Encounter - Debo Joe LBonP.N. - 02/25/2018 1:30 PM CDT Notified Paul that Rx was completed. Stated he was changing PCP to Dr. Pack. PSR Notified to change. documented in this encounter Plan of Treatment Upcoming Encounters Date Type Specialty Care Team Description 06/26/2022 Appointment Neurology Preet Landeros M.D . [address] [place] [phone] Bria Suh APRN, CBonNBonPBon, M.S.N. [address] [place] [phone] 07/25/2022 Appointment Radiology Preet Landeros M.D . [address] [place] [phone] (Wo rk) documented as of this encounter Visit Diagnoses Diagnosis Diabetes Mellitus Type 2 Hyperglycemia ( HCC) Fdc Use Of Insulin Active (HCC) documented in this encounter Care Teams Juice Mixer Relationship Specialty Start Date End Date Roz Pack M.D. PCP - General Family Medicine 02/25/18 05/29/18 documented as of this encounter
--- OUTSIDE RECORDS SUMMARY | 2022-06-23 22:44 | XMS_ITS | Encounter Summary ---
:1970 Author Organization [facility] Address [address] [place] [address] Care Team Providers Name Role Phone Amanda Barrios APRN, C.N.P. Primary Care Provider [phone] Reason for Visit Reason Comments Communication Encounter Details Date Type Department Care Team Description 12/17/2017 Clinical Communication Department of [facility] Mayad Barrios, Communication Medicine, [place] BRET, C.N.P. [facility], in [facility] [address] [place], [place] [address] [place], [place] [phone] (Work) [phone] Social History Tobacco Use Types Packs/Day Years [...] or relatives? How often do you attend zoroastrianism or More than 4 times per year 06/02/2022 amish services? Do you belong to any clubs or Yes 06/02/2022 organizations such as zoroastrianism groups, unions, fraternal or athletic groups, or [...] Miscellaneous Notes Telephone Encounter - Debo Joe L.P.N. - 12/17/2017 4:44 PM CDT FYI- Spoke with Taryn (Mom) she wanted to let you know that Paul is currently in [facility] waiting to be admitted. He had started at 2am with seizure activity and seized til 7am. Telephone Encounter - Princess Sutherland - 12/17/2017 4:23 PM CDT Pt is in Er waiting to be admitted to [facility]. Caller is pt's mother Taryn. If you would like, you can call her at [phone] documented in this encounter Plan of Treatment Upcoming Encounters Date Type Specialty Care Team Description 06/26/2022 Appointment Neurology Preet Landeros M.D . [address] [place] [phone] Bria Suh APRN, C.N.P., M.S.N. [address] [place] [phone] 07/25/2022 Appointment Radiology Preet Landeros M.D . [address] [place], [place] [phone] (Wo rk) documented as of this encounter Visit Diagnoses Not on filedocumented in this encounter Care Teams Hvac Project Engineer Relationship Specialty Start Date End Date Amanda Barrios APRN, C.N.P. PCP - General 02/27/17 02/24/18 [address] [place] [phone] documented as of this encounter
--- OUTSIDE RECORDS SUMMARY | 2022-06-23 22:44 | XMS_ITS | Encounter Summary ---
:1970 Author Organization [facility] Address [address] [place] [address] Care Team Providers Name Role Phone Amanda Barrios APRN, C.N.P. Primary Care Provider [phone] Reason for Referral Outpatient (Routine) - Closed Specialty Diagnoses / Procedures Referred By Contact Refer red To Contact Diagnoses Elevated Troponin Sha Cruz [facility]. [facility] Procedures Echo Stress [address] [place] [address] Referral ID Status Reason Start Date Expiration Date Visits Requ ested Visits Authorized [id number] Closed 01/30/2018 07/29/2018 1 1 Reason for Visit Reason Comments Hypertension Diabetes Hypoglycemia Review Echo Results [facility] 12/18/17 Outpatient (Routine) - Closed Specialty Diagnoses / Referred By Contact Referred To Contact Procedures Cardiovascular Diseases / Diagnoses Hypertension Essential Primary Amanda Barrios [facility] Cardiovascular Disease BRET, C.N.P. [address] [place] [address] Referral ID Status Reason Start Date Expiration Date Visits Requ ested Visits Authorized [id number] Closed 12/22/2017 06/20/2018 1 1 Encounter Details Date Type Department Care Team Description 01/30/2018 Comprehensive Visit Department of Mayra Barrios APRN, C.N.P. [address] [place] [address] Elevated Troponin (Primary Dx); Cardiovascular Sha Cruz M.D. [address] [facility] [place] [address] Hypertension Essential Primary; Diseases in [place], Hyperl ipidemia Mixed; [place] Dyspnea On Exertion; [address] Tobacco Use; [place], [place] Body Mass Index 50.0 To 59.9 Adult ([facility]) [phone] Social History Tobacco Use Types Packs/Day [...] Sign Reading Time Taken Comments Blood Pressure 144/65 01/30/2018 10:20 AM CDT Pulse 75 01/30/2018 10:20 AM CDT Temperature 36.6 ??C (97.9 ??F) 01/30/2018 10:17 AM CDT Respiratory Rate - - Oxygen Saturation 95% 01/30/2018 10:17 AM CDT Inhaled Oxygen Concentration - - Weight 160 kg (353 lb 2.8 oz) 01/30/2018 10:17 AM CDT Height 169 cm (5' 6.54) 01/30/2018 10:17 AM CDT Body Mass Index 56.09 01/30/2018 10:17 AM CDT documented in this encounter Consult Notes Sha Cruz M.D. - 01/30/2018 10:00 AM CDT ASSESSMENT / PLAN 1. Abnormal troponin December 2017. - Normal NST 09/2008, LVEF 65%. 2. Hypertension. 3. Dyslipidemia. 4. Dyspnea on exertion. 5. Diabetes mellitus, insulin-dependent. - hypoglycemic episodes leading to hospitalization/ER visit on December and January 2018. 6. Obesity, medically complicated. BMI 56. 7. Obstructive sleep apnea, probable. Workup pending. 8. History of kidney cancer status post cryoablation 11/2015. 9. Psoriasis. 10. Urine toxicology positive for metanephrines reported on 12/17/2017. Abnormal troponin levels during hospitalization after seizure secondary to hypoglycemia on December 2017. This is likely due to supply demand mismatch rather than secondary to obstructive coronary artery disease. Still, in view of dyspnea on exertion as well as multiple risk factors for coronary artery disease, I believe the patient should undergo additional stratification in the form was stress echocardiogram. This has been ordered but will be scheduled only after the patient is seen by Endocrinology.I am concerned about hypoglycemia precipitated by the test so I would rather have the patient littlebit more compensated before proceeding with this type. The patient and his mother agree to call me after the visit with endocrinology to schedule the test. Meanwhile, I will focus on risk modification,see below. Dyspnea on exertion. This has been stable and chronic for several years as per patient and his mother. No evidence of volume overload other than some lower extremity edema. I believe this is likely dueto body habitus and deconditioning. I will look at the filling pressure response to exercise and anyother abnormalities that could cause this symptom during the stress echocardiogram. No changes are otherwise recommended. In case of worsening lower extremity edema, we may consider adding low-dose diuretic to his regiment. Hypertension, fair blood levels today. Continue medical therapy which including an ARB. Dyslipidemia. Patient has high triglycerides, low HDL and fair LDL levels. In view of his risk profile I will further up titrate his atorvastatin to 40 mg daily, at least until stress test is done. If no significant ischemia is seen we may decreasing atorvastatin to 20 mg daily. We would like to have the LDL better suppressed if at all possible. Lifestyle changes were also recommended as the patient has been more careful with avoiding over eating. Improved lifestyle should help improve HDL and lowertriglycerides further. No need for pharmacologic therapy for triglycerides at this point in time. Continue close follow-up with primary care provider and med surg nurse for his diabetes which is not well controlled at this point in time. Obesity, medically complicated. We introduced the idea of possible bariatric surgery which is shoulddiscuss further with his primary care provider and med surg nurse. Tobacco use. Complete discontinuation of smoking would be helpful to reduce the chance of cardiovascular disease. Follow up with Cardiology in a year sooner if needed. The patient and his mother expressed understanding and agreement with the plan. CARDIOLOGY CONSULTATION Location: [facility] Referring Provider: Amanda Barrios APRN, C.N.P. CHIEF COMPLAINT/REASON FOR CONSULT Hypertension; Diabetes (Hypoglycemia); and Review Echo Results ([facility] 12/18/17) HISTORY OF PRESENT ILLNESS Mr. Paul Murphy is a very pleasant 47 y.o. male who presents to [facility] to discuss echo results as well as recent hospitalization and risk factors for coronary artery disease. His primary care provider is Amanda Barrios APRN, C.N.P.. Patient presents today accompanied by his mother. He has had significant problems with hypoglycemia which led to 2 hospitalizations (January 2018 and another December 17, 2017). On the latest hospitalization the patient had symptoms starting around 1:00 a.m. until around 3:00 a.m.. EMS was called and glucose in the field was 33. He was restless prior to the event and quite agitated and confused afterwards. He was taken to the ER. Prior to that he had a similar episode on December 17, 2017 which was also worked up in the ER. At that time he had mildly abnormal troponin elevations. He was briefly hospitalized and the impression was that the troponin elevation was noncardiac in etiology. Man solar manager was esperanza cooney. I reviewed the records and agree with that evaluation. The patient reports no chest discomfort but has shortness of breath. This has been present for several years as per his mother. It tends to occur with activities. He has mild lower extremity edema and only feels his heart racing when heis exerting himself. Some cough is reported. No prior myocardial infraction or strokes. 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 Patient also has been considered to have obstructive sleep apnea with sleep apnea test in the past. Repeat study will be done in the future. He had a normal nuclearstress test October 04, 2008 ejection fraction 65%. We reviewed labs and echo done at [facility] with the patient. No reports of alcohol use or illicit drug use. He had abnormal metanephrine test in the ER based on records. Based on discharge summary. Cardiovascular Risk Factors: 1. Smoking status: currently smokes cigars packs per (occasionally) 2. Type II Diabetes Mellitus: yes. No components found for: HEMOGLOBIN A1C 3. Hypertension: yes 4. Dyslipidemia: yes. No components found for: LIPIDS, TOTAL, SERUM 5. Family history of early Coronary Artery Disease in a first degree relative (Male less than 55 years of age; Female less than 65 years of age): yes 6. Obesity and/or Metabolic Syndrome: yes 7. Sedentary lifestyle: yes 8. Menopausal status: N/A Current Outpatient Medications Medication Sig ??? ascorbic acid, vitamin C, (vitamin C) 1,000 mg tablet Take 1 tablet by mouth daily. ??? aspirin 81 mg capsule Take 81 mg by mouth daily. ??? atorvastatin (LIPITOR) 40 mg tablet Take 1 tablet (40 mg total) by mouth at bedtime. ??? calcium carbonate-vitamin D3 (CALCIUM+D) 400-133.3 mg-unit tablet Take by mouth 2 (two) times a day. ??? cetirizine (ZyrTEC) 10 mg tablet Zyrtec 10 mg oral tablet PRN ??? CINNAMON BARK (CINNAMON ORAL) Take 1 capsule by mouth daily. ??? fluocinonide (for_LIDEX) 0.05 % cream Apply 1 application topically 2 (two) times a day as needed for irritation or rash (eczema). ??? fluticasone (for_FLONASE) 50 mcg/actuation nasal spray Administer 2 sprays into each nostril as needed. ??? ibuprofen (ADVIL) 200 mg tablet Take 2 tablets by mouth as needed. ??? insulin aspart (NovoLOG Flexpen) 100 unit/mL injection 20 units before each meal3 times daily. ??? insulin glargine (BASAGLAR KWIKPEN U-100 INSULIN) 100 unit/mL (3 mL) injection Inject 0.3 mL (30Units total) under the skin at bedtime. ??? multivitamin capsule daily. ??? omeprazole (for_PriLOSEC) 20 mg capsule Take 20 mg by mouth every morning before breakfast. ??? ONETOUCH ULTRA TEST strips ??? pen needle, diabetic (LITE TOUCH INSULIN PEN NEEDLES) 31 gauge x 5/16 needle Inject insulin 4 times daily. ??? valsartan (DIOVAN) 80 mg tablet Take 1 tablet (80 mg total) by mouth daily. Allergies Allergen Reactions ??? Lisinopril Cough Social History Social History ??? Marital status: Single Spouse name: N/A ??? Number of children: N/A ??? Years of education: N/A Social History Main Topics ??? Smoking status: Light Tobacco Smoker ??? Smokeless tobacco: Never Used Comment: Cigar ??? Alcohol use Yes Comment: Rare ??? Drug use: No ??? Sexual activity: Yes Other Topics Concern ??? None Social History Narrative Caffeine: 2 cups coffee daily Family History Problem Relation Age of Onset ??? Diabetes Brother REVIEW OF SYSTEMS Constitutional: Positive for fatigue (Poor sleep) and generalized weakness. Negative for weight gainof more than 10 pounds and weight loss of more than 10 pounds. Skin: Positive for skin rash. Respiratory: Positive for dry cough and dyspnea. Negative for wheezing. Cardiovascular: Positive for swelling in the legs or feet and rapid or fluttering heart beat (Fast heartbeat with exercise). Negative for chest pain, pressure or tightness and shortness of breath when lying flat. Musculoskeletal: Positive for arthralgias, pain or stiffness in the joints and muscle pain/stiffness. Neurological: Positive for seizures, excessive daytime sleepiness and weakness in arms or legs. Negative for light-headedness. Psychiatric/Behavioral: Positive for excessive daytime sleepiness/tiredness and snores loudly. The following systems were negative: Eyes, ENT The following portions of the patient's history were reviewed and updated as appropriate: allergies,current medications, family history, medical history, social history, surgical history and problem list. OBJECTIVE Vitals: 01/30/18 1017 01/30/18 1020 BP: 138/67 144/65 BP Location: Right arm Left arm Patient Position: Sitting Sitting Cuff Size: Large Large Pulse: 77 75 Temp: 36.6 ??C TempSrc: Temporal SpO2: 95% Weight: (!) 160.2 kg Height: 169 cm BP Readings from Last 3 Encounters: 01/30/18 144/65 01/16/18 130/68 12/22/17 146/68 Body mass index is 56.09 kg/m??. PHYSICAL EXAMINATION GENERAL: Patient is awake, alert, oriented x3. No acute distress. EYES: Pupils are equal and symmetric in size, normal extraocular movements. No pallor. No icterus. No xanthelasma. ENT: Normal dentition, tongue is mildly enlarged. No drainage from the ear canals bilaterally. NECK: No jugular venous distention. No carotid bruits, 2+ carotid upstroke bilaterally. CHEST/LUNGS: No chest deformity. Normal respiratory effort. Good entry bilaterally. No adventitious sounds. CARDIOVASCULAR: Normal rate and regular rhythm. Normal S1 and S2. No murmurs, rubs, or gallops. Negative hepatojugular reflux. ABDOMEN: Soft, nontender, nondistended. Positive bowel sounds. No pulsatile masses. LOWER EXTREMITIES: Lower extremity warm with trace right and 1+ left edema. UPPER EXTREMITIES: 2+ Radial pulses bilaterally. Normal capillary refill. No clubbing, no cyanosis. NEUROLOGIC: No focal motor findings in upper or lower extremities. Left facial palsy. DIAGNOSTICS I have reviewed the patient's current laboratory, imaging, and other diagnostic studies. Pertinent laboratory studies have been reviewed and are notable for: Abstract on 12/24/2017 Component Date Value ??? Hemoglobin 12/18/2017 12.9* ??? Hematocrit 12/18/2017 40* ??? Platelet Count 12/18/2017 279 ??? Auto WBC 12/18/2017 12.1* ??? Glucose 12/17/2017 167 ??? Bld Urea Nitrog(BUN), S 12/17/2017 17 ??? Creatinine, S 12/17/2017 0.8 ??? Potassium, S 12/17/2017 3.7 ??? Sodium, S 12/17/2017 138 ??? Alkaline Phosphatase, S 12/17/2017 79 ??? Alanine Amniotransferase* 12/17/2017 28 ??? Aspartate Aminotransfera* 12/17/2017 70* ??? Bilirubin, Total, S 12/17/2017 0.4 ??? Bilirubin, Direct, S 12/17/2017 0.2 ??? Hemoglobin A1c, B 12/17/2017 9.7* ??? Thyroid Stimulating Horm* 12/17/2017 0.338* Hospital Outpatient Visit on 09/17/2017 Component Date Value ??? Hemoglobin A1c, B 09/17/2017 12.1* Lipids February 2017 LDL 83, triglycerides 278, HDL 39. Pertinent imaging studies have been reviewed and are notable for: Echocardiogram December 18, 2017: 1. Technically very difficult exam. 2. Echo contrast was administrered to enhance visualization of all left ventricular segments. 3. Normal LV size, borderline wall thickness, hyperdynamic global systolic function with an estimated EF of 70 - 75%. 4. Right ventricular cavity size is not well visualized, global systolic RV function is normal. 5. No significant functional valve disease detected. Chest x-ray December 17, 2017: No acute chest findings. CT head December 17, 2017: Negative noncontrast CT. IMPRESSION/REPORT/PLAN See above. Note: Dictated portions of this note were done using M*Modal Fluency Direct front-end speech recognition software. documented in this encounter Plan of Treatment Upcoming Encounters Date Type Specialty Care Team Description 06/26/2022 Appointment Neurology Preet Landeros M.D . [address] [place] [phone] Bria Suh APRN, C.N.P., M.S.N. [address] [place] [phone] 07/25/2022 Appointment Radiology Preet Landeros M.D . [address] [place], [place] [phone] (Wo rk) documented as of this encounter Results ECHO STRESS 2D WITH COLOR, LIMITED DOPPLER AND CONTRAST (05/29/2018 9:16 AM CDT) [facility] gist Method Time Signature Ejection Fraction 63 [...] this encounter Visit Diagnoses Diagnosis Elevated Troponin - Primary Hypertension Essential Primary Hyperlipidemia Mixed Dyspnea On Exertion Tobacco Use Body Mass Index 50.0 To 59.9 Adult (HCC) Elevated Troponin documented in this encounter Care Teams Medical Office Representative Relationship Specialty Start Date End Date Amanda Barrios APRN, C.N.P. PCP - General 02/27/17 02/24/18 [address] [place] [phone] documented as of this encounter
--- OUTSIDE RECORDS SUMMARY | 2022-06-23 22:44 | XMS_ITS | Encounter Summary ---
:1970 Author Organization [facility] Address [address] [place] [phone] Care Team Providers Name Role Phone Roz Pack M.D. Primary Care Provider Reason for Visit Reason Comments Diabetes Mellitus Outpatient (Routine) - Closed Specialty Diagnoses / Procedures Referred By Referred To Contact Contact Reproductive Diagnoses Diabetes Mellitus Type 2 Hyperglycemia (HCC) Body Mass Index 50.0 To 59.9 Adult (HCC) Roz Pack M.D. [facility] Endocrinology and [address] [place] [address] Infertility / [place], [place] Endocrinology [phone] Referral ID Status Reason Start Date Expiration Date Visits Requ ested Visits Authorized [id number] Closed 01/30/2018 07/29/2018 1 1 Encounter Details Date Type Department Care Team Description 03/06/2018 Comprehensive Visit Division of Roz Pack M.D. [address] [place] [phone] Diabetes Mellitus Type 2 Hyperglycemia ( HCC) (Primary Dx); Endocrinology in Herminio Juarez M.D. [address] [place] [phone] Body Mass Index 50.0 To 59.9 Adult (HCC) ; [place], [place] Hypertension Essential Prima ry; [address] [place] [address] Carcinoma Renal Cell Left (H CC) [place] [phone] Social History Tobacco Use Types Packs/Day [...] or relatives? How often do you attend synagogue or More than 4 times per year 06/02/2022 gnosticism services? Do you belong to any clubs or Yes 06/02/2022 organizations such as synagogue groups, unions, fraternal or athletic groups, or [...] documented as of this encounter Consult Notes Herminio Juarez M.D. - 03/06/2018 10:45 AM CDT SUBJECTIVE CHIEF COMPLAINT / REASON FOR VISIT Paul Murphy is a 47 y.o. male who presents for an evaluation of diabetes mellitus. HISTORY OF PRESENT ILLNESS 1. Type 2 diabetes Patient is a 47-year-old gentleman was had diabetes for 18 years. There is a family history of diabetes on the maternal side of the family and in his brother. He is currently being managed with metformin extended-release, 500 mg tablets, 4 tablets daily plus 33 units of Basaglar at bedtime plus 20 units of NovoLog at each meal. Patient Re reportedly monitors blood sugars before each meal. The patienthas been recently seen by on February 20, 2018. As noted the patient is severely obese at a BMI of 58. At that visit it was recommended that the patient discontinue his snacking during the day which he has done since that visit. This is resulted in improvement in the blood sugars. It was also at that time that his basal insulin was reduced to its current level 28 units because of episodesof severe hypoglycemia in the middle of the night. A suggestion was made about adding a GLP-1 to hisregimen for improved glycemic control, however, the patient is priced 1 of these options and found that it would cost them around 450 dollars per month. This is prohibitive under their financial constraints. Patient's current dietary habits continued to be high in processed foods, breads, meals at restaurants and high in red meats and saturated fat. Again, I can gradually the patient on removing the snackswhich she was having 3 times a day. He readily admits this the challenges specially at night when hehas some sugar cravings. He has been referred for nutritional assessment for possible bariatric surgery. Patient's health is complicated by peripheral neuropathy, hypertension, history a left renal cell carcinoma, hyperlipidemia, psoriasis in these recent episodes of severe hypoglycemia requiring assistance. The present time there has been no evidence of cardiovascular disease nor does the patient admit to any symptoms suggestive active clinical cardiovascular disease. ALLERGIES ?? lisinopril (Cough) ? PAST MEDICAL HISTORY ?? 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 PROCEDURES/SURGICAL HISTORY ?? Repair initial incisional or ventral hernia; incarcerated or strangulated.. (05/29/2011), Appendectomy (10/30/1984). ? SOCIAL HISTORY ?? Date Time: 04/07/2017 13:22 ?? Tobacco: Smoking Status: Former smoker Exposure: Other: Quit fall Alcohol: Use: No Results Found Recreational Drugs: Use: None Type: No Results Found ? FAMILY HISTORY ?? Brother:Positive: Diabetes mellitus REVIEW OF SYSTEMS Neurological: Positive for numbness or shooting pain in hands, arms, legs, or feet, headaches and weakness in arms or legs. OBJECTIVE PHYSICAL EXAM Physical Exam General: Patient in no acute distress. Eye: No icterus Chest: Respirations normal. Extremities: No edema Neuro: Oriented Psych: Mood and affect normal Diagnostics ASSESSMENT / PLAN 1. Type 2 diabetes, poor control 2. Severe obesity 3. Hyperlipidemia on treatment 4. Hypertension on treatment 5. History of recent severe nocturnal hypoglycemia 6. History of renal cell carcinoma Laboratory tests on December 17 revealed A1c level 9.7% this is a decrease from 12.1% in September of this year. Electrolytes liver function tests were all normal other than AST that was elevated at 70 (consistent with Keen versus alcohol). Creatinine normal at 0.8. Microalbumin 1 year ago was 31. I have reviewed with both the patient and his efforts at trying to move her diet from a averageWestern a dietary program to a plant based or Mediterranean type diet. Name is really to reduce carbohydrates in the diet as well as the saturated in trans fats. His keeps meticulous records regarding his blood sugars dosages of his insulin and what he eats each and every day. We reviewed many ofhis meals and how they could be adjusted to be healthier both in the content) glycemic index) as well as total calories. Efforts at increasing his intake of both vegetables and fruit was strongly encouraged. He should continue to monitor blood sugars before each meal and bedtime daily. These measurements should be 4 hr longer since last consumption calories. He goal range of 100-150 would be reasonable. AnA1c goal between 6.5-7.5% would also be reasonable. I gather that the patient will be following up with Dr. Gallo in 3 months. Since the addition of a GLP-1 agonists is cost prohibitive I wouldconcentrate on optimizing the patient's use of a multiple daily injection program. Long-term, if bariatric surgery is not in the near future, he should strongly consider our diabetes unit program so that he may optimally understand how to dose of basal insulin per some mealtime insulin and avoid hypoglycemia. The severe episodes of hypoglycemia was due to too much basal insulin thus I reviewed the guidelines of dosing a basal insulin (bedtime to morning trend staying within 40 mg/dL) and the need tooccasionally measure blood sugars in the middle of the night to be sure that they always remain above 100 mg/dL. Once a stat stable basal insulin has been determined to relay this dose is not going to change lesser significant weight loss. He should be with the diabetes nurse educator for further instructions in dosing a mealtime insulin which might and also include meeting with a diabetes dietitian to assist the patient in further menu planning. I have encouraged the patient to continue with his lifestyle improvements and the excellent record keeping that they are doing. They should use this information in a proactive manner so that the improve her glycemic control by appropriate use of their insulin as well as appropriate eating habits. I, too, which strongly support gastric bypass surgery in this patient due to the severity of his obesity,his age and comorbidities. All this has been discussed with the patient in detail and questions answered. Reviewed available test results with the patient and answered questions. Laboratory studies are satisfactory except as noted above. PATIENT EDUCATION Ready to learn, no apparent learning barriers were identified; learning preferences include listening. Explained diagnosis and treatment plan; patient expressed understanding of the content. Total visit time greater than 60 minutes, with over 50% spent counseling with the patient and coordination of care activities described above. documented in this encounter Plan of Treatment Upcoming Encounters Date Type Specialty Care Team Description 06/26/2022 Appointment Neurology Preet Landeros M.D . [address] [place] [phone] Bria Suh APRN, C.N.P., M.S.N. [address] [place] [phone] 07/25/2022 Appointment Radiology Preet Landeros M.D . [address] [place] [phone] (Wo rk) documented as of this encounter Visit Diagnoses Diagnosis Diabetes Mellitus Type 2 Hyperglycemia ( HCC) - Primary Body Mass Index 50.0 To 59.9 Adult (HCC) Hypertension Essential Primary Carcinoma Renal Cell Left (HCC) documented in this encounter Care Teams School [employer] Relationship Specialty Start Date End Date Roz Pack M.D. PCP - General Family Medicine 02/25/18 05/29/18 documented as of this encounter
--- OUTSIDE RECORDS SUMMARY | 2022-06-23 22:44 | XMS_ITS | Encounter Summary ---
:1970 Author Organization [facility] Address [address] [place] [address] Care Team Providers Name Role Phone Roz Pack M.D. Primary Care Provider Reason for Visit Reason Comments Consult Ref. S.Sophie - O.S.A. Outpatient (Routine) - Closed Specialty Diagnoses / Procedures Referred By Contact Refer red To Contact Neurology Diagnoses Apnea Sleep Obstructive Amanda Barrios APRN, [facility] C.N.P. [address] [place] [phone] Referral ID Status Reason Start Date Expiration Date Visits V isits Requested Authorized [id number] Closed Specialty 12/22/2017 06/20/2018 1 1 Services Required Encounter Details Date Type Department Care Team Description 02/26/2018 Comprehensive Visit Department of Mayra Barrios APRN, C.N.P. [address] [place] [phone] Apnea Sleep Neurology in Nany Elder M.D., M.P.H. [address] [place] [phone] Obstructive [place], [place] [address] [place] [phone] Social History Tobacco Use Types Packs/Day Years [...] Sign Reading Time Taken Comments Blood Pressure 140/70 02/26/2018 12:22 PM CDT Pulse 85 02/26/2018 12:22 PM CDT Temperature - - Respiratory Rate - - Oxygen Saturation - - Inhaled Oxygen Concentration - - Weight 160 kg (351 lb 13.7 oz) 02/26/2018 12:22 PM CDT Height - - Body Mass Index 57.92 02/20/2018 9:48 AM CDT documented in this encounter Consult Notes Nany Elder M.D., M.P.H. - 02/26/2018 12:30 PM CDT Paul Murphy is a 47 y.o. male who presents today at the request of Amanda Barrios APRN, C.N.PBon [address] [phone] for evaluation of Consult (Ref. S.Uvaldoom - O.S.A.). SUBJECTIVE CHIEF COMPLAINT / REASON FOR VISIT Paul Murphy is a 47 y.o. male who presents for evaluation of Consult (Ref. S.Sophie - O.S.A.). HISTORY OF PRESENT ILLNESS This patient has a long history of sonorous snoring as his mother confirms at the visit. There are not examples of witnessed apneas because he sleeps too far away. He does have some hypersomnia had hisEpworth sleepiness Score today is 9 if he watches TV during the day he will fall asleep most likely. The patient has a number of health concerns including morbid obesity, uncontrolled diabetes mellitusand hypertension. Patient had a prior sleep study ordered by Dr. James Santana this was completed on 08/02/2004 atthat time his weight was 300 lb and his total apnea- hypopnea index was 95.6. His RDI supine was 8.3 her TIA nonsupine was 86.9 CPAP was initiated 11 cm water pressure which decreased his AHI to 5.9 hisECG revealed rare PVCs. He has not been using his CPAP machine for many years. He believes that his sleep study showed that his sleep apnea was ???borderline?? . I did not have his sleep study at the time of the visit to review with him. INTERIM HISTORY Past Medical History: Diagnosis Date ??? Diabetes Mellitus Type 2 (HCC) 11/08/2015 DM2 Uncontrolled ??? Diabetes Mellitus Type 2 Hyperglycemia (HCC) 11/08/2015 DM2 Uncontrolled Past Surgical History: Procedure Laterality Date ??? APPENDECTOMY N/A 10/30/1984 Appendectomy ??? PRIMARY REPAIR OF INCISIONAL HERNIA N/A 05/29/2011 Repair initial incisional or ventral hernia; incarcerated or strangulated.. MEDICATIONS: Current Outpatient Prescriptions: ??? ascorbic acid, vitamin C, (vitamin C) 1,000 mg tablet, Take 1 tablet by mouth daily., Disp: , Rfl: ??? aspirin 81 mg capsule, Take 81 mg by mouth daily., Disp: , Rfl: ??? atorvastatin (LIPITOR) 40 mg tablet, Take 1 tablet (40 mg total) by mouth at bedtime., Disp: 90 tablet, Rfl: 0 ??? blood glucose ctl high,nml,low solution, Glucose control solution provides an easy way to ensureaccurate blood glucose testing., Disp: 1 each, Rfl: 0 ??? blood sugar diagnostic strips, 4 test daily., Disp: 360 test, Rfl: 3 ??? blood-glucose meter [facility], Test as directed for diabetes control., Disp: 1 each, Rfl: 0 ??? calcium carbonate-vitamin D3 (CALCIUM+D) 400-133.3 mg-unit tablet, Take by mouth 2 (two) times aday., Disp: , Rfl: ??? cetirizine (ZyrTEC) 10 mg tablet, Zyrtec 10 mg oral tablet PRN, Disp: , Rfl: ??? CINNAMON BARK (CINNAMON ORAL), Take 1 capsule by mouth daily., Disp: , Rfl: ??? fluocinonide (for_LIDEX) 0.05 % cream, Apply 1 application topically 2 (two) times a day as needed for irritation or rash (eczema)., Disp: 60 g, Rfl: 0 ??? fluticasone (for_FLONASE) 50 mcg/actuation nasal spray, Administer 2 sprays into each nostril asneeded. , Disp: , Rfl: ??? ibuprofen (ADVIL) 200 mg tablet, Take 2 tablets by mouth as needed., Disp: , Rfl: ??? insulin glargine (BASAGLAR KWIKPEN U-100 INSULIN) 100 unit/mL (3 mL) injection, Inject 0.3 mL (30 Units total) under the skin at bedtime. (Patient taking differently: Inject 33 Units under the skinat bedtime. ), Disp: 15 mL, Rfl: 2 ??? metFORMIN XR (GLUCOPHAGE-XR) 500 mg 24 hr tablet, Take 4 tablets (2,000 mg total) by mouth daily., Disp: 360 tablet, Rfl: 3 ??? multivitamin capsule, daily., Disp: , Rfl: ??? NOVOLOG FLEXPEN U-100 INSULIN 100 unit/mL injection, 20 UNITS BEFORE EACH MEAL3 TIMES DAILY., Disp: 30 mL, Rfl: 2 ??? omeprazole (for_PriLOSEC) 20 mg capsule, Take 20 mg by mouth every morning before breakfast., Disp: , Rfl: ??? ONETOUCH ULTRA TEST strips, , Disp: , Rfl: ??? ONETOUCH VERIO HIGH CONTROL solution, , Disp: , Rfl: ??? pen needle, diabetic (LITE TOUCH INSULIN PEN NEEDLES) 31 gauge x 5/16 needle, Inject insulin 4 times daily., Disp: 200 each, Rfl: 11 ??? valsartan (DIOVAN) 80 mg tablet, Take 1 tablet (80 mg total) by mouth daily., Disp: 90 tablet, Rfl: 3 ALLERGY: Allergies Allergen Reactions ??? Lisinopril Cough Family History Problem Relation Age of Onset ??? Diabetes Brother Social History Social History ??? Marital status: Single Spouse name: N/A ??? Number of children: N/A ??? Years of education: N/A Occupational History ??? Not on file. Social History Main Topics ??? Smoking status: Light Tobacco Smoker ??? Smokeless tobacco: Never Used Comment: Cigar ??? Alcohol use Yes Comment: Rare ??? Drug use: No ??? Sexual activity: Yes Other Topics Concern ??? Not on file Social History Narrative Caffeine: 2 cups coffee daily Constitutional: Positive for generalized weakness. Neurological: Positive for numbness or shooting pain in hands, arms, legs, or feet, headaches and weakness in arms or legs. OBJECTIVE Vitals: 02/26/18 1222 BP: 140/70 Pulse: 85 Body mass index is 57.92 kg/m??. PHYSICAL EXAM COGNITION: Alert and oriented x 4. HEENT: Mallampati score: 3 Macroglossia: + Over jet: - Retrognathia: - Lungs: CTA CRANIAL NERVES: lion trainer II-XII intact and symmetric. MOTOR: Full strength throughout the upper and lower extremities bilaterally both proximally and distally. Normal tone. No pronator drift. No tremor. REFLEXES: Normal and symmetric at the biceps, triceps, brachioradialis, knees, and ankles. Toes are downgoing to plantar stimulation. SENSORY: normal sensation to touch CEREBELLAR: Heel-malone, djcefw-jami-vyelfr, and AMRs are performed well without evidence of appendicular ataxia. GAIT: Normal with appropriate base, good heel strike, arm swing, and stride length. Tandem walk is normal. Impression: Patient has very severe obstructive sleep apnea as such I will order a full night of titration rather than a split night study. We will be able to use the 2003 study to justify his CPAP machine. Given his size I think his titration will be complex anyway and I think full night titration is most appropriate. Total time with the patient and his mother was 50 min 35 in counseling documented in this encounter Plan of Treatment Upcoming Encounters Date Type Specialty Care Team Description 06/26/2022 Appointment Neurology Preet Landeros M.D . [address] [place] [phone] Bria Suh APRN, C.N.P., M.S.N. [address] [place] [phone] 07/25/2022 Appointment Radiology Preet Landeros M.D . [address] [place] [phone] (Wo rk) documented as of this encounter Visit Diagnoses Diagnosis Apnea Sleep Obstructive documented in this encounter Care Teams Poster Relationship Specialty Start Date End Date Roz Pack M.D. PCP - General Family Medicine 02/25/18 05/29/18 documented as of this encounter
--- OUTSIDE RECORDS SUMMARY | 2022-06-23 22:44 | XMS_ITS | Encounter Summary ---
:1970 Author Organization [facility] Address [address] [place] [address] Care Team Providers Name Role Phone Roz Pack M.D. Primary Care Provider Reason for Visit Reason Comments Sleep study results Outpatient (Routine) - Closed Specialty Diagnoses / Procedures Referred By Contact Refer red To Contact Neurology Nany Elder M.D ., M.P.H. [facility] Region [address] [address] Referral ID Status Reason Start Date Expiration Date Visits Requ ested Visits Authorized [id number] Closed 02/26/2018 02/26/2019 1 1 Encounter Details Date Type Department Care Team Description 04/16/2018 Office Visit Department of Nany Elder, Apnea Slee p Obstructive Neurology in [place], M.P.[facility]. (Primary Dx) [place], [place] [address] [place] [phone] Social History Tobacco Use Types Packs/Day Years [...] or relatives? How often do you attend jain or More than 4 times per year 06/02/2022 roman catholic services? Do you belong to any clubs or Yes 06/02/2022 organizations such as jain groups, unions, fraternal or athletic groups, or [...] Sign Reading Time Taken Comments Blood Pressure 142/70 04/16/2018 1:56 PM CDT Pulse 77 04/16/2018 1:56 PM CDT Temperature - - Respiratory Rate - - Oxygen Saturation - - Inhaled Oxygen Concentration - - Weight 155 kg (341 lb 7.9 oz) 04/16/2018 1:53 PM CDT Height - - Body Mass Index 56.83 03/23/2018 2:37 PM CDT documented in this encounter Patient Instructions Patient InstructionsNany Elder M.D., M.P.H. - 04/16/2018 2:00 PM CDT Images from the original note were not included. Patient Education Snoring and Sleep Apnea If you feel sleepy and tired during the day, you may have a medical condition called sleep apnea. Sleep apnea causes you to snore loudly and interrupts your sleep. This can keep you from getting a trenton???s sleep even if you do not completely wake up. You may not know you have sleep apnea until someone says you snore loudly or snort in your sleep. Soft, steady snoring is not bad for your health.However, snoring loudly can be a sign that you have sleep apnea. Types of Sleep Apnea People with severe sleep apnea have more than one pause in breathing, called an apnea, every minute they are asleep. Pauses in breathing usually last 20 to 30 seconds, but can last up to one minute. Ifyou have sleep apnea and you stop breathing, the level of oxygen in your bloodstream falls, sometimes to dangerously low levels. Your brain senses oxygen decrease and briefly wakes you from sleep, causing the muscles in the back of your throat to hold the airway open so breathing can start again. There are three types of sleep apnea: ?? Obstructive sleep apnea is most common and happens when throat muscles relax and block breathing.This information focuses on obstructive sleep apnea because it is the most common. ?? Central sleep apnea happens when your brain doesn???t send proper signals to the muscles that control breathing. ?? Complex sleep apnea happens when you have both obstructive and central sleep apneas. Obstructive Sleep Apnea Problems Obstructive sleep apnea can lead to: ?? A hard time concentrating. ?? Headaches in the morning. ?? Sexual dysfunction. ?? Heart and blood vessel problems, such as high blood pressure which is also called hypertension, stroke and heart failure. ?? Car accidents. Finding out if you have sleep apnea and getting treatment is very important. Obstructive Sleep Apnea Symptoms If you have obstructive sleep apnea you may have: ?? Loud snoring. ?? Pauses in breathing during sleep. ?? Shortness of breath when you wake up. ?? Dry mouth and throat in the morning. ?? Morning headache. ?? Daytime tiredness that doesn???t go away, also called fatigue, and sleepiness. At first this problem may be mild. For example, you may fall asleep while reading or watching television. If apneas happen more often, you may have trouble staying awake during activities such as driving a car or working. Falling asleep at the wheel is one of the most common causes of car accidents. People Who May Get Obstructive Sleep Apnea Obstructive sleep apnea affects many people. It is more common in men than in women and it is more likely to happen to women after they have had menopause. The following factors may make you more likely to get sleep apnea: ?? Being overweight. ?? Smoking and tobacco use. ?? Using alcohol. ?? The structure of your face. For example, a recessed jaw. ?? The structure of your nasal passages. For example, having a blockage. ?? Certain medical conditions. ?? Having other family members who have it. Finding You Have Obstructive Sleep Apnea Talk with your health care provider if you snore loudly or have other symptoms of obstructive sleep apnea. Your health care provider may be able to tell you if you have obstructive sleep apnea after you have a physical examination and answer questions about your medical history. You may need to go to a sleep center for more testing, including overnight monitoring while you sleep. You may have an examination of the nose, mouth, throat and neck. You may have a test called a polysomnogram, also known as a PSG. This test shows the number of timesyou have irregular breathing while you sleep and how long each episode lasts. You usually stay overnight in a sleep center. Staying overnight helps show your health care provider when the irregular breathing wakes you up. With a PSG, small wires are glued to your scalp, face, chest and legs and elastic bands are placed around your chest and stomach. The wires show brain, heart, muscle activity and breathing as you sleep. See Figure 5a. A technologist in another room monitors the information from the equipment attached to your body andfrom a video recording. See Figures 5b and 5c. Most people don???t have a problem falling asleep during PSG. After the study, you should meet with a sleep specialist to review the results and talk about treatment options. Treatment Options Self-care treatment Treatment is available for most people. Sometimes if you have snoring or mild obstructive sleep apnea you can improve breathing during sleep by using positional therapy. The following examples may help improve your breathing during sleep: ?? Sleep on your side or stomach instead of on your back. ?? Hug a body pillow while sleeping. ?? Sew a tennis ball into the back of your pajama shirt. This may help keep you from rolling onto your back. For more information about positional therapy, talk to your health care provider. You may also: ?? Use a special backpack. Ask your health care provider where to get an inflatable backpack to keepyou from rolling onto your back. ?? Lose extra weight. The tissues in the throat, chest and abdomen are smaller when you are a healthy weight. ?? Open your nasal passages. Ask your health care provider about nasal sprays or nasal strips that may help. ?? Stop using substances that trouble your central nervous system. Alcohol, some pain medications and certain sleeping pills contain drugs called narcotics that trouble your central nervous system and make obstructive sleep apnea worse. Ask your health care provider for more information. ?? Stop smoking. Smoking may increase inflammation and cause fluid to build up in the upper airway. Medical treatment If you have moderate to severe obstructive sleep apnea, your health care provider may recommend one or more of the following: ?? Positive airway pressure, also called PAP. This device delivers strong air to the nose and back of the throat to keep the airway from collapsing during sleep. Some people find this treatment awkwardor uncomfortable at first. Be patient. It generally takes about one to two months of regular nightlyuse to get used to the PAP equipment. You may need to experiment with adjusting the straps on the mask or try different masks to find one that???s comfortable. See Figure 6. ?? Mouth devices, also called oral devices or mandibular repositioning appliance (MRA). These devices are designed to keep your throat open by holding your lower jaw and tongue forward. This often relieves snoring and mild to moderate obstructive sleep apnea. PAP is usually more effective than an MRA,but an MRA may be easier for you. A number of MRAs are available. See Figure 7. If you have questions about oral devices, talk with your health care provider. ?? Surgery. For some people, surgery may be recommended. Surgical options include weight reduction surgery, tissue removal and jaw surgery. The goal of tissue removal surgery is to remove extra tissue from your throat and sometimes your nose that contributes to the blockage of your upper air passages and causes obstructive sleep apnea. Jaw surgery may help to place tissue in a better position and relieve the obstruction. For more information about jaw surgery, talk to your health care provider. Conclusion Treating sleep apnea, including severe snoring, may help your health and greatly improve your quality of life. Sleep apnea is an ongoing condition that has to be watched regularly by your health care provider. If you have questions about sleep apnea or this information, contact your health care provider. This material is for your education and information only. This content does not replace medical advice, diagnosis or treatment. New medical research may change this information. If you have questions about a medical condition, always talk with your health care provider. ? 2011 [facility] Education and Research ([facility]). All rights reserved. [id number] Patient Education Cleaning Your Positive Airway Pressure (PAP) Equipment Your positive airway pressure therapy equipment helps you breathe better while you sleep. Getting a good night???s sleep is important for your health. Cleaning the interface, your mask and nasal pillows is important because over time natural oils on your face can cause a poor toor-ra-pqvk seal. Cleaning your interface often helps the mask fit more comfortably and helps it to stay in place better. Cleaning your humidifier every day keeps water from sitting too long. If water sits too long, mold and fungus may grow. Allergies, a runny nose and stuffiness can happen if you breathe these in. Use these instructions as a guide for cleaning your PAP equipment. Your PAP equipment comes with an instruction manual from the district associate judge. Look at your equipment instruction manual for the district associate judge???s recommendations. It is important to clean your equipment. Supplies ?? Mild liquid soap such as Ivory???, Aurora??? or baby shampoo ?? Sink or basin ?? Clean hand towel ?? A shower bar, towel rack or back of a chair to hang tubing on ?? Vinegar water - made with one part white vinegar and three parts water Mask Wash daily. 1. Remove the headgear from the mask. 2. Put soap in warm water until sudsy. Do not put soap directly on the mask. 3. Wash the mask in the warm soapy water. 4. Rinse the mask under running water. 5. Shake off extra water. 6. Put the mask on a clean hand towel to air dry or use the towel to wipe the mask. Once a week, after washing the mask in soapy water, soak the mask in vinegar water.Soak for 30 minutes.Then follow steps 3 to 5. Nasal pillows Wash daily. 1. Wash the nasal pillows in warm soapy water. 2. Rinse the nasal pillows under running water. 3. Shake off extra water. 4. Put nasal pillows on a clean hand towel to air dry or use the towel to wipe them. Humidifier Wash daily. 1. Empty remaining distilled water. 2. Wash humidifier reservoir in the fast food team member if the instruction manual says it is safe and you have a fast food team member. Otherwise, follow steps 3 to 6. 3. Wash the inside of the humidifier with warm soapy water. 4. Rinse the inside of the humidifier thoroughly. 5. Pour out extra water. 6. Use a clean hand towel to wipe the outside of the humidifier. ??Let the inside air dry before putting new distilled water into it before you go to bed. Once a week, after washing the inside of the humidifier, pour vinegar water into the humidifier. After 30 minutes, pour out the vinegar water. Then follow steps 4 to 6. Talk with the store where you buy your PAP equipment about getting a humidifier that snaps apart foreasier cleaning. Tubing Wash weekly. 1. Separate tubing from the PAP unit and mask or nasal pillows. 2. Wash the tubing in warm soapy water. 3. Soak the tubing in vinegar water for 30 minutes. 4. Rinse the tubing under running water. 5. Shake off extra water. 6. Let tubing air dry by hanging it so the water drains out.?? Tubing also can be dried by reattaching it to the PAP unit and turning the unit on for several minutes. Headgear 1. Close the Velcro??? tabs so they do not picker box operator lint from the towel. 2. Handwash headgear in warm soapy water. Do not wash headgear in the clothes washer. 3. Place headgear on a clean hand towel to air dry or use the hand towel to dry it. Do not dry the headgear in the clothes dryer. Filters It is important to know what your filter looks like, where it is located and what type of filter youhave. There are washable and disposable filters. Washable filters Wash weekly when cleaning tubing. 1. Remove the filter. 2. Wash the filter in warm soapy water. 3. Rinse the filter under running water. 4. Squeeze out extra water or press filter in a clean hand towel. 5. Let the filter air dry. 6. Do not put the filter back until it is completely dry. Disposable filters Check monthly. Replace the filter if it is mickey. Do not clean it. Do not use it again.You may have to check more often if, for example, your PAP is in a mickey room or you have a house pet. PAP unit 1. Remove dust from the PAP unit by wiping it with a damp cloth. 2. Do not place liquids on top of the PAP unit. Traveling You can travel with your PAP equipment. You can use pop-up cleansing wipes such as baby wipes to clean your interfaces. Bottled drinking water or tap water can be used in the humidifier if distilled water is not available. If you can safely drink the water it can be used to moisturize your nose in thehumidity chamber. Always empty the humidifier completely every day and put it upside down so it dries out. Keep in mind distilled water is still the preferred water because it does not leave mineral deposits in the system, hose or interfaces. Important ?? Do not keep or use cleaning supplies that are . ?? Do not use equipment that is too old or out of date. ?? Follow your district associate judge???s instructions on when to replace outdated equipment. ?? Understand and follow your insurance???s guidelines. ?? Do not put solutions that may be harmful to you in the humidifier. These include bleach, cleaningproducts made by the district associate judge and other cleaning products such as Sauk Merlene???. Do not put products such as VICKS??? in the humidifier. This material is for your education and information only. This content does not replace medical advice, diagnosis or treatment. New medical research may change this information. If you have questions about a medical condition, always talk with your health care provider. ? 2011 [facility] [place] for Medical Education and Research ([employer]). All rights reserved. [id number] documented in this encounter Progress Notes Nany Elder M.D., M.P.H. - 04/16/2018 2:00 PM CDT SUBJECTIVE CHIEF COMPLAINT / REASON FOR VISIT Paul Murphy is a 48 y.o. male who presents for evaluation of Sleep study results. HISTORY OF PRESENT ILLNESS Patient returns today for follow-up after his split night polysomnogram. During this study on 03/25/2018 he had an apnea-hypopnea index of 110 and a total respiratory distress index of 114 was appropriately treated with 13 cm of water pressure with either nasal mask her fullface mask. Today's visit expressed the desire to use the nasal mask. I printed out a handout on obstructive sleep apnea and CPAP therapy for him to take home. I described the difference in severity is terms of classification of sleep apnea to give him some perspective about how bad his sleep apnea was. Past Medical History: Diagnosis Date ??? Asthma [...] bedtime., Disp: 90 tablet, Rfl: 0 ??? calcium carbonate-vitamin D3 (CALCIUM+D) [...] 0.6 mg/0.1 mL (18 mg/3 mL) injection, Apply inject 0.6 mg daily for one week then increase it 1.2 mg daily, Disp: 3 mL, Rfl: 3 ??? metFORMIN XR (GLUCOPHAGE-XR) [...] Disp: , Rfl: ??? ONETOUCH VERIO strips, , Disp: , Rfl: ??? valsartan (DIOVAN) 80 mg tablet, Take 1 tablet (80 mg total) by mouth daily., Disp: 90 tablet, Rfl: 3 ALLERGY: Allergies Allergen Reactions ??? Lisinopril Cough Family History Problem Relation Age of Onset ??? Diabetes Brother ??? Melanoma Father ??? Diabetes Brother Social History Social History [...] History Narrative Caffeine: 2 cups coffee daily Neurological: Positive for numbness or shooting pain in hands, arms, legs, or feet, headaches and weakness in arms or legs. OBJECTIVE Vitals: 04/16/18 1356 BP: 142/70 Pulse: 77 PHYSICAL EXAM I did not do detailed examination at today's visit. Impression: Encounter Diagnoses Name Primary? Apnea Sleep Obstructive Yes The patient is very severe obstructive sleep apnea he was appropriately treated on 13 cm water pressure and I have ordered a nasal mask for him will plan to see him back in 2 months I have given him a handout about obstructive sleep apnea and CPAP therapy and answered all his questions to the best of my ability. Total time with patient was 30 minutes 20 and counseling. documented in this encounter Plan of Treatment Upcoming Encounters Date Type Specialty Care Team Description 06/26/2022 Appointment Neurology Preet Landeros M.D . [address] [place] [phone] Bria Suh APRN, C.N.P., M.S.N. [address] [place] [phone] 07/25/2022 Appointment Radiology Preet Landeros M.D . [address] [place], [place] [phone] (Wo rk) documented as of this encounter Visit Diagnoses Diagnosis Apnea Sleep Obstructive - Primary documented in this encounter Additional Health Concerns Assessment Noted Time PHQ-9 Depression Total Score: 4 03/23/2018 12:54 PM CD T documented as of this encounter Care Teams Paving Stone Installer Relationship Specialty Start Date End Date Roz Pack M.D. PCP - General Family Medicine 02/25/18 05/29/18 documented as of this encounter
--- OUTSIDE RECORDS SUMMARY | 2022-06-23 22:44 | XMS_ITS | Encounter Summary ---
:1970 Author Organization [facility] Address [address] [place] [address] Care Team Providers Name Role Phone Roz Pack M.D. Primary Care Provider Reason for Referral Outpatient (Routine) - Closed Specialty Diagnoses / Procedures Referred By Contact Refer red To Contact Diagnoses Apnea Sleep Obstructive Nany Elder M.D., [facility] Region Procedures Polysomnography (PSG): Full PAP Trial M.P.H. [address] [place] [phone] Referral ID Status Reason Start Date Expiration Date Visits Requ ested Visits Authorized [id number] Closed 02/26/2018 02/26/2019 1 1 Outpatient (Routine) - Closed Specialty Diagnoses / Procedures Referred By Contact Refer red To Contact Neurology Nany Elder M.D ., M.P.H. [facility] Region [address] [place] [phone] Referral ID Status Reason Start Date Expiration Date Visits Requ ested Visits Authorized [id number] Closed 02/26/2018 02/26/2019 1 1 Encounter Details Date Type Department Care Team Description 02/26/2018 Orders Only Department of Neurology Nany Elder, Apnea Sleep Obstructive in [facility] nadeen Pavon, M.P.H. (Primary Dx) [address] [place], [place] [phone] Social History Tobacco Use Types Packs/Day Years [...] Neurology Preet Landeros M.D . [address] [place] [phone] Bria Suh APRN, C.N.P., M.S.N. [address] [place] [phone] 07/25/2022 Appointment Radiology Preet Landeros M.D . [address] [place], [place] [phone] (Wo rk) Scheduled Referrals Name Type Priority Associated Order Schedule Diagnoses Neurology office Outpatient Referral Routine 1 Oc currences visit (clinic) starting 02/13 until 1 documented as of this encounter Results Polysomnography (PSG): Full PAP Trial (03/25/2018 6:15 AM CDT) Specimen (Source) Anatomical Location Collection Method / Collectio n Time Received Time / Laterality Volume Narrative MMODAL - 03/26/2018 4:54 PM CDT SLEEP STUDY REPORT This routine split night polysomnogram w as performed on a Gareth Easy III using the standard diagnostic protocol o utlined by the [employer] . This included 6 channel s of EEG, 2 channels of EOG, chin EMG, bilateral anterior tibialis EMG, na brayan/oral thermister, PTAF (nasal pressure transducer), chest and abdomina l wall movements, EKG rhythm strip, and pulse oximetry. The study was scored based upon recomme nded [employer] scoring guidelines in accordanc e with Medicare guidelines. ??All of the raw data was reviewed. ??The stud y started at 10:39 p.m. the night of 03/25/2018 and ended at 6:20 a.m. of the following morning. Please see technical data from same date for more d etails. SLEEP ARCHITECTURE The diagnostic portion of the study show ed a sleep efficiency of 65 %. ?? The total recording time was 234.5 minut es with a total sleep time of 152.5 minutes. ?? Initial sleep onset la tency was 21 minutes with an initial sleep onset REM latency of 0 min utes. ??Wake after sleep onset was 48 minutes in total. Distribution of sle ep stages was as follows: Stage N1 71.1 %, stage N2 28.9 %, Stage N3 0 % an d REM Sleep 0 * %. ??Arousal index was 108.6. Sleep architecture abnormal w ith no stage III or REM recorded. RESPIRATORY PATTERN Grade 2-3 Snoring was recorded. Apnea/hy popnea index was ??110, respiratory disturbance index was 114, average oxyge n saturation was 90 with minimal oxygen saturation of 74. ELECTROCARDIOGRAM Rhythm strip EKG showed sinus rhythm. BODY MOVEMENTS Periodic limb movement index was 0 with periodic limb movement arousal index of 0. TITRATION CPAP therapy was initiated at 2:44 a.m. after criteria was met for initiation. Initial CPAP pressure was 5 cm water pressure patient was ultimately titrated up to 16 cm of water pressure when central sleep hypopneas developed. ??The patient start ed with a median Eson nasal mask ?? that was changed to a medium F 20 fullfa ce mask. ??The patient did best at 13 cm water pressure with a full face ma sk an EPR of 3. Patient had the head of his bed elevated to 45?? and sti ll qualify for CPAP. CLINICAL INTERPRETATION Patient has severe obstructive sleep dozer operator eas and obstructive sleep hypopneas. ??Should be treated with full face mask during titration this was a medium F 20 at 13 cm water pressur e with an EPR of 3 CLINICAL CORRELATION Patient should be treated with pressure support described above even with the head of his bed elevated 45?? he marcie lified for pressure support. ??* The patient? s body mass index is elevated, weight loss is recommended. he should avoid activities that require a h igh level of alertness like driving, if he feels drowsy. The patient will follow up with Dr. Elder * to discuss results of sleep study. Nany Elder M.D., M[facility]P.[facility] SLEEP CENTER ORDERABLES Performing Organization Address City/State/ZIP Code Phon e Number MMODAL MMODAL NA documented in this encounter Visit Diagnoses Diagnosis Apnea Sleep Obstructive - Primary Apnea Sleep Obstructive documented in this encounter Care Teams Hand Fabric Cutter Relationship Specialty Start Date End Date Roz Pack M.D. PCP - General Family Medicine 02/25/18 05/29/18 documented as of this encounter
--- OUTSIDE RECORDS SUMMARY | 2022-06-23 22:44 | XMS_ITS | Encounter Summary ---
:1970 Author Organization [facility] Address [address] [place] [address] Care Team Providers Name Role Phone Roz Pack M.D. Primary Care Provider Reason for Visit Reason Onset Date Comments See HOSPITAL SCIENTIST 04/09/2018 Encounter Details Date Type Department Care Team Description 04/09/2018 Clinical Communication Division of Ramya Oneill, See HOSPITAL SCIENTIST Endocrinology in [facility] [place], [place] [address] [facility] [address] [place] [phone] Social History Tobacco Use Types Packs/Day Years [...] get together with friends Three times a dinora rosado 06/02/2022 or relatives? How often do you [...] this encounter Miscellaneous Notes Telephone Encounter - Orlin Muir - 04/09/2018 4:04 PM CDT Can patient see HOSPITAL SCIENTIST or another provider? Please advise Orlin documented in this encounter Plan of Treatment Upcoming Encounters Date Type Specialty Care Team Description 06/26/2022 Appointment Neurology Preet Landeros M.D . [address] [place] [phone] Bria Suh, BRET, C.N.P., M.S.N. [address] [place] [phone] 07/25/2022 Appointment Radiology Preet Landeros M.D . [address] [place] [phone] (Wo rk) documented as of this encounter Visit Diagnoses Not on filedocumented in this encounter Additional Health Concerns Assessment Noted Time PHQ-9 Depression Total Score: 4 03/23/2018 12:54 PM CD T documented as of this encounter Care Teams Jewelry Consultant Relationship Specialty Start Date End Date Roz Pack M.D. PCP - General Family Medicine 02/25/18 05/29/18 documented as of this encounter
--- OUTSIDE RECORDS SUMMARY | 2022-06-23 22:44 | XMS_ITS | Encounter Summary ---
:1970 Author Organization [facility] Address [address] [place] [address] Care Team Providers Name Role Phone Roz Pack M.D. Primary Care Provider Reason for Visit Outpatient (Routine) - Canceled Specialty Diagnoses / Procedures Referred By Contact Refer red To Contact Diagnoses Apnea Sleep Obstructive Nany Elder M.D., [facility] Procedures Polysomnography (PSG): Split Night (STANDARD) [facility] [address] [place] [phone] Referral ID Status Reason Start Date Expiration Date Visits V isits Requested Authorized [id number] Canceled 02/26/2018 02/26/2019 1 1 Encounter Details Date Type Department Care Team Description 03/24/2018 Diagnostic Department of Sleep Nany Elder Apne a Sleep Obstructive Medicine in [place] Echeverria, M.P .H. [place] [address] [place] [phone] Social History Tobacco Use Types Packs/Day Years [...] or relatives? How often do you attend quaker or More than 4 times per year 06/02/2022 catholic services? Do you belong to any clubs or Yes 06/02/2022 organizations such as quaker groups, unions, fraternal or athletic groups, or [...] Neurology Preet Landeros M.D . [address] [place] [phone] Bria Suh APRN, C.N.P., M.S.N. [address] [place] [phone] 07/25/2022 Appointment Radiology Preet Landeros M.D . [address] [place] [phone] (Wo rk) documented as of this encounter Procedures Procedure Name Priority Date/Time Associated Diagnosis Comme nts POLYSOMNOGRAPHY Routine 03/25/2018 6:15 AM Apnea Sleep Result s for this CDT Obstructive procedure are i n the results section. documented in this encounter Results Polysomnography (PSG): Full PAP Trial (03/25/2018 6:15 AM CDT) Specimen (Source) Anatomical Location Collection Method / Collectio n Time Received Time / Laterality Volume Narrative MMODAL - 03/26/2018 4:54 PM CDT SLEEP STUDY REPORT This routine split night polysomnogram w as performed on a Personera Easy III using the standard diagnostic protocol o utlined by the [place] [employer] . This included 6 channel s of EEG, 2 channels of EOG, chin EMG, bilateral anterior tibialis EMG, na brayan/oral thermister, PTAF (nasal pressure transducer), chest and abdomina l wall movements, EKG rhythm strip, and pulse oximetry. The study was scored based upon recomme nded [place] [employer] scoring guidelines in [...] CLINICAL INTERPRETATION Patient has severe obstructive sleep dope sprayer eas and obstructive sleep hypopneas. ??Should be [...] documented as of this encounter Care Teams Fraternity House Cook Relationship Specialty Start Date End Date Roz Pack M.D. PCP - General Family Medicine 02/25/18 05/29/18 documented as of this encounter
--- OUTSIDE RECORDS SUMMARY | 2022-06-23 22:44 | XMS_ITS | Encounter Summary ---
:1970 Author Organization [facility] Address [address] [place] [address] Care Team Providers Name Role Phone Amanda Barrios APRN C.N.PBon Primary Care Provider [phone] Reason for Referral Outpatient (Routine) - Closed Specialty Diagnoses / Procedures Referred By Contact Refer red To Contact Reproductive Diagnoses Diabetes Mellitus Type 2 Hypoglycemia Without Coma (HCC) Roz Pack M.D. [facility] Endocrinology and [address] [facility] / [place], [place] Endocrinology [phone] Referral ID Status Reason Start Date Expiration Date Visits Requ ested Visits Authorized [id number] Closed 01/16/2018 07/15/2018 1 1 utpatient (Routine) - Closed Specialty Diagnoses / Procedures Referred By Contact Refer red To Contact Nutrition Diagnoses Diabetes Mellitus Type 2 Hypoglycemia Without Coma (HCC) Roz Pack M.D. [facility] Region [address] [place] [phone] Referral ID Status Reason Start Date Expiration Date Visits Requ ested Visits Authorized [id number] Closed 01/16/2018 07/15/2018 1 1 Scheduling Instructions Reviewed diet with the patient since he had episodes of severe of hypoglycemia since October 2017. Specialty Diagnoses / Procedures Referred By Contact Kim cruz To Contact Roz Pack M.D. [facility] Region [address] [place] [phone] Referral ID Status Reason Start Date Expiration Date Visits Requ ested Visits Authorized Reason for Visit Reason Comments Follow-up ER visit 01/15, hypoglycemic, got as low as 33 Appointment Request (Routine) - Closed Specialty Diagnoses / Procedures Referred By Contact Refer anthony To Contact Family Medicine Referral ID Status Reason Start Date Expiration Date Visits Requ ested Visits Authorized [id number] Closed 01/15/2018 07/14/2018 1 Encounter Details Date Type Department Care Team Description 01/16/2018 Office Visit Department of [facility] Roz Pack Diabet es Mellitus Type 2 Hypoglycemia Without Coma (HCC) (Primary Dx); MedicineJuwan M.D. 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 (HCC) [place], [place] [address] [facility] [address] [place], [place] [phone] (Work) [phone] Social History Tobacco Use Types Packs/Day Years [...] Sign Reading Time Taken Comments Blood Pressure 130/68 01/16/2018 9:32 AM CDT Pulse 76 01/16/2018 9:32 AM CDT Temperature 36.8 ??C (98.2 ??F) 01/16/2018 9:32 AM CDT Respiratory Rate 16 01/16/2018 9:32 AM CDT Oxygen Saturation - - Inhaled Oxygen Concentration - - Weight 162 kg (356 lb 9.5 oz) 01/16/2018 9:32 AM CDT Height - - Body Mass Index 59.41 09/18/2017 9:19 AM REGIONAL ACCOUNT DIRECTOR documented in this encounter Patient Instructions Patient InstructionsRoz Pack M.D. - 01/16/2018 9:45 AM CDT 1. Diabetes Mellitus Type 2 Hypoglycemia Without Coma (HCC); Given that you had severe hypoglycemia,will decrease Basaglar to 30 units at bedtime. Make sure you are not taking more than 30-35 units ofNovoLog per day. -Will need perioperative educator to help with carbs counting -Will need dry boss to help with diet modifications -Endocrinology referral since you had more 5 episodes of hypoglycemia since October 2017. -Glucagon injection order placed and glucose tablets. -Fasting glucose goal: 70-130 and postprandial glucose goal: better if less than 140 but okay if itsless than 180. - Nutrition - Diabetes education visit (clinic); Future - Nutrition - Medical nutrition therapy consult (clinic); Future - insulin glargine (BASAGLAR KWIKPEN U-100 INSULIN) 100 unit/mL (3 mL) injection; Inject 0.3 mL (30 Units total) under the skin at bedtime. Dispense: 15 mL; Refill: 2 - Endocrinology - General consult (clinic); Future 2. 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 Dispense: 15 mL; Refill: 2 documented in this encounter Progress Notes Roz Pack M.D. - 01/16/2018 9:45 AM CDT DEPARTMENT OF FAMILY MEDICINE IN [place], [place] Chief Complaint Chief Complaint Patient presents with ??? Follow-up ER visit 01/15, hypoglycemic, got as low as 33 HPI ED Followup Facility: [facility] emergency department Date of visit: January 15, 2018 Reason for visit: Severe hypoglycemia Concern: Description of the problem :Patient is here with his mother. Mom states she was woken up by Paul making funny nose and sitting on his recliner chair. He was restless. Mother states she tried to given him orange juice for approximately 45 minutes but was unsuccessful since he was aggressive, combative and not following directions. Mom called EMS and the struggle with him for one hour and 9 EMS staff was trying to hold him down. The EMS staff checked his blood glucose which was 33 and he was given glucagon/amp of 40. Patient states he does not remember anything except after he was given glucagon and amp of D50, he remember the nine EMS personnel was holding him down. Patient states he has been taking 5 units of NovoLog per 15 grams of carbs and 40 units of Basaglar at bedtime. Patient reports hetakes approximately 20 units of NovoLog per meal and gives himself more short-acting insulin when his glucose is above 250. Mom states this is his fifth episode of severe hypoglycemia since he was switched to Basaglar due to health insurance. Patient was also admitted on December 17, 2017 at [facility] for another episode of hypoglycemia of 57. Patient states he counts he tries count carbs. 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 Patient states he is afraid ofsleeping at night due to his severe hypoglycemia. The following portions of the patient's history were reviewed and updated as appropriate in the EMR:allergies, current medications and problem list on 01/16/18 REVIEW OF SYSTEMS Negative review of major organ systems apart from that noted in the HPI PHSYCIAL EXAM Temperature: 36.8 ??C Resp Rate: 16 Blood Pressure: 130/68 Weight: 161.7 kg Constitutional: He is oriented to person, place, and time. He appears well- developed and well-nourished. No distress. HENT: Head: Normocephalic and atraumatic. Cardiovascular: Normal rate, regular rhythm and normal heart sounds. No murmur heard. Pulmonary/Chest: Effort normal and breath sounds normal. No respiratory distress. He has no wheezes.He has no rales. Neurological: He is alert and oriented to person, place, and time. LABS/IMAGING No results found for this or any previous visit (from the past 24 hour(s)). ASSESSMENT AND PLAN Patient Instructions 1. Diabetes Mellitus Type 2 Hypoglycemia Without Coma (HCC); Case discussed with our on-call equipment processer storage and agreed to decrease Basglar to 30 units at bedtime. Given that he had severe hypoglycemia, will decrease Basaglar to 30 units at bedtime. Discussed with the patient that he should not take more than 30-35 units of NovoLog per day. Not okay for him to NovoLog insulin when he is not eating any meal. -Will need to schedule an appointment with perioperative educator to help with carbs counting -Will need to see dry boss to help with diet modifications -Endocrinology referral since patient had more 5 episodes of hypoglycemia since October 2017. -Glucagon injection order placed and glucose tablets. -Fasting glucose goal: 70-130 and postprandial glucose goal: better if less than 140 but okay if itsless than 180. -Follow up in 2 weeks. - Nutrition - Diabetes education visit (clinic); Future - Nutrition - Medical nutrition therapy consult (clinic); Future - insulin glargine (BASAGLAR KWIKPEN U-100 INSULIN) 100 unit/mL (3 mL) injection; Inject 0.3 mL (30 Units total) under the skin at bedtime. Dispense: 15 mL; Refill: 2 - Endocrinology - General consult (clinic); Future 2. Intermediate Use Of Insulin Active (HCC) - insulin glargine (BASAGLAR KWIKPEN U-100 INSULIN) 100 unit/mL (3 mL) injection; Inject 0.3 mL (30 Units total) under the skin at bedtime. Dispense: 15 mL; Refill: 2 Options for treatment and follow-up care were reviewed with the patient . Paul Murphy and/yazmin engaged in the decision making process and verbalized understanding of the options discussed and agreed with the final plan. A total of 70 minutes were spent [id number] with the patient during this encounter and 60 minutes were spent on counseling, discussing the plan and coordination of care. Roz Pack M.D. documented in this encounter Plan of Treatment Upcoming Encounters Date Type Specialty Care Team Description 06/26/2022 Appointment Neurology Preet Landeros M.D . [address] [place] [phone] Bria Suh APRN, C.N.P., M.S.N. [address] [place] [phone] 07/25/2022 Appointment Radiology Preet Landeros M.D . [address] [place] [phone] (Wo rk) Scheduled Referrals Name Type Priority Associated Diagnoses Order S chedule Nutrition - Diabetes Outpatient Routine Diabetes Mellitus Ex pected: education visit Referral Type 2 Hypoglycemia 01/16 (clinic) Without Coma (HCC) (Approxim ate), Expires: 01/16/2019 Nutrition - Medical Outpatient Routine Diabetes Mellitus Exp ected: nutrition therapy Referral Type 2 Hypoglycemia 12/2017 consult (clinic) Without Coma (HCC) (Appr oximate), Expires: 01/16/2021 Endocrinology - Outpatient Routine Diabetes Mellitus Expecte d: General consult Referral Type 2 Hypoglycemia 01/16 (clinic) Without Coma (HCC) (Approxim ate), Expires: 01/16/2021 documented as of this encounter Visit Diagnoses Diagnosis Diabetes Mellitus Type 2 Hypoglycemia Wi thout Coma (HCC) - Primary Diabetes Mellitus Type 2 Hyperglycemia ( HCC) 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 PCP - General 02/27/17 02/24/18 [address] [place] [phone] documented as of this encounter
--- OUTSIDE RECORDS SUMMARY | 2022-06-23 22:44 | XMS_ITS | Encounter Summary ---
:1970 Author Organization [facility] Address [address] [place] [phone] Care Team Providers Name Role Phone Roz Pack M.D. Primary Care Provider Reason for Visit Outpatient (Routine) - Closed Specialty Diagnoses / Referred By Contact Referred To Contact Procedures Reproductive Diagnoses Body Mass Index 50.0 To 59.9 Adult (HCC) Roz Pack M.D. [facility] Endocrinology and [address] [place] [address] Infertility / [place], [place] Endocrinology [phone] Referral ID Status Reason Start Date Expiration Date Visits Requ ested Visits Authorized [id number] Closed 01/30/2018 07/29/2018 3 1 Encounter Details Date Type Department Care Team Description 03/23/2018 Clinical Support Department of Farzana Russell, Body Ma ss Index 50.0 Nutrition in B.S., M.S., To 59.9 Adult ( HCC) [place], [place] RDN, LD [address] [place] [phone] Social History Tobacco Use Types Packs/Day Years [...] 157 kg (345 lb 10.9 oz) 03/23/2018 2:37 PM CDT Height 165.1 cm (5' 5) 03/23/2018 2:37 PM CDT Body Mass Index 57.52 03/23/2018 2:37 PM CDT documented in this encounter Progress Notes Farzana Russell M.S., RDN, LD - 03/23/2018 3:00 PM CDT CHIEF COMPLAINT/REASON FOR VISIT Nutrition-Bariatric Surgery Consult Met with patient ASSESSMENT Food/Nutrition Related History Dieting experience: Patient met with dietitian in February of this year to discuss healthy eating for blood glucose control. He has been working on portion control and reducing snacks between meals. Since December of this year, he has consistently been journaling his food intake. He keeps track of carbohydrate choices and strives to keep his calorie intake <2500 per day. Eating environment: He would dine out about 50% of the time. He would typically dine at local style restaurants. He feels that he is able to make healthy choices at the restaurants he enjoys. He does most of the grocery shopping for the home but his mother does the cooking. Food and beverage intake ?? Breakfast (8-9 AM): Eggs, delgado, and toast with peanut butter or butter. Some days cereal or yogurt parfait. Beverage would be plain tea or black coffee. He used to put syrup and milk in his coffee but has eliminated this. ?? Morning Snack: None. ?? Lunch (12:30-1:30 PM): He sometimes packs his lunch or would eat something from [employer]. If he were to pack his lunch, it would be leftovers, salad, and hummus and veggies. If eating at [employer], mightget a Starbucks sandwich. Beverage would be coffee or water. ?? Afternoon Snack: 1 time per week, he might have an afternoon snack. He might have another cup of coffee. ?? Evening Meal (6:30-7 PM): His mom normally fixes this meal or he would dine out. He likes having baked fish on Friday nights. His mom typically fixes meat and potatoes or hot dish for dinner. He always has a vegetable with this meal such as broccoli, cauliflower, green beans, peas, and corn. Beverage would be water. ?? Night Snack: 2 times per week would have a night snack with a blood glucose < 100 and this would be piece of fruit or trail mix. Alcohol intake: Has an alcoholic beverage 1-2 times per month. Physical activity: Paul Murphy reports that he does not exercise as much as he should. He tries to walk at work. Weight History Date: 03/23/18 Wt (!) 156.8 kg Ht 165.1 cm Body mass index is 57.52 kg/m??. Weight change: The patient's weight history can be found in the Weight Management questionnaire or Endocrinology Consult by Dr. Oneill from 03/23/18. Wt Readings from Last 6 Encounters: 03/23/18 (!) 156.8 kg 03/23/18 (!) 156.8 kg 03/02/18 (!) 160.2 kg 02/26/18 (!) 159.6 kg 02/20/18 (!) 159.8 kg 02/16/18 (!) 160.4 kg Estimation of Nutritional Needs Total Calorie Needs: Shalonda- St. Shi Equation with no activity = 2364 calories NUTRITION DIAGNOSIS Overweight/Obesity related to imbalance between energy intake and energy expenditure as evidenced bypatient's intake, activity report, and BMI > 55 Nutrition Prescription/Recommendation Lifestyle changes in preparation for potential bariatric surgery INTERVENTION Education: Weight Control; consideration for bariatric surgery See Patient Education Record for information regarding education materials covered today. MONITORING AND EVALUATION: Nutrition parameter to monitor: Weight Desired Outcome: establish healthy lifestyle changes prior to bariatric surgery; weight reduction ormaintenance Patient Goal(s): 1. Increase exercise by walking at least 3 days per week. Consider walking around [employer] either before or after work. 2. Continue with current eating plan of 3 meals per day with limited snacking and journaling intake. 3. Slow down speed of eating and consume meals over 30 minutes. 4. Separate eating from drinking by 30 minutes before and after meals. Goals were established with the patient during the visit. FOLLOW UP PLAN: Provided name and phone number if questions should arise , Follow-up appointment per protocol Time spent with patient (minutes): 45 documented in this encounter Plan of Treatment Upcoming Encounters Date Type Specialty Care Team Description 06/26/2022 Appointment Neurology Preet Landeros M.D . [address] [place] [phone] Bria Suh APRN, C.N.P., M.S.N. [address] [place] [phone] 07/25/2022 Appointment Radiology Preet Landeros M.D . [address] [place] [phone] (Wo rk) documented as of this encounter Visit Diagnoses Diagnosis Body Mass Index 50.0 To 59.9 Adult (HCC) documented in this encounter Additional Health Concerns Assessment Noted Time PHQ-9 Depression Total Score: 4 03/23/2018 12:54 PM CD T documented as of this encounter Care Teams Corrosion Control Specialist Relationship Specialty Start Date End Date Roz Pack M.D. PCP - General Family Medicine 02/25/18 05/29/18 documented as of this encounter
--- OUTSIDE RECORDS SUMMARY | 2022-06-23 22:44 | XMS_ITS | Encounter Summary ---
:1970 Author Organization [facility] Address [address] [place] [address] Care Team Providers Name Role Phone Amanda Barrios APRN C.N.PBon Primary Care Provider [phone] Encounter Details Date Type Department Care Team Description 12/24/2017 Abstract Department of Family Medicine in Provider , Historical Luli Rubio n [address] [place], [place] [phone] Social History Tobacco Use Types Packs/Day [...] or relatives? How often do you attend christianity or More than 4 times per year 06/02/2022 cheondoism services? Do you belong to any clubs or Yes 06/02/2022 organizations such as christianity groups, unions, fraternal or athletic groups, or [...] Neurology Preet Landeros M.D . [address] [place] [phone] Bria Suh APRN, C.N.P., M.S.N. [address] [place] [phone] 07/25/2022 Appointment Radiology Preet Landeros M.D . [address] [place] [address] [phone] (Wo rk) documented as of this encounter Procedures Procedure Name Priority Date/Time Associated Comments Diagnosis CBC WITH Routine 12/18/2017 6:00 AM Results f or this DIFFERENTIAL, B CDT procedure ar e in the results section. HEPATIC FUNCTION Routine 12/17/2017 9:05 PM Resul ts for this PANEL CDT procedure are i n the results section. BASIC METABOLIC Routine 12/17/2017 9:05 PM Result s for this PANEL, S/P CDT procedure are i n the results section. THYROID-STIMULATING Routine 12/17/2017 8:30 PM Re sults for this HORMONE-SENSITIVE CDT procedure are in (S-TSH) the results section. HEMOGLOBIN A1C, B Routine 12/17/2017 8:30 PM Resu lts for this CDT procedure are i n the results section. documented in this encounter Results (ABNORMAL) CBC with Differential (12/18/2017 6:00 AM CDT) Analysis Performed At Patho logist Time Signature Hemoglobin 12.9 (A) 13.5 - OTHER 17.5 (SPECIFY IN INTERNET SALES ASSOCIATE) Hematocrit 40 (A) 41 - 53 % OTHER (SPECIFY IN INTERNET SALES ASSOCIATE) Platelet Count 279 150 - 399 OTHER (SPECIFY IN INTERNET SALES ASSOCIATE) Auto WBC 12.1 (A) 3.3 - 10.0 OTHER 10*3/mL (SPECIFY IN INTERNET SALES ASSOCIATE) Specimen (Source) Anatomical Location Collection Method / Collectio n Time Received Time / Laterality Volume Blood (Blood, Venous) Ordering Provider External M.D. LAB BLOOD ADD-ON Performing Organization Address City/State/ZIP Code Phon e Number OTHER (SPECIFY IN INTERNET SALES ASSOCIATE) OTHER (SPECIFY IN INTERNET SALES ASSOCIATE) N/A (ABNORMAL) Hepatic function panel (12/17/2017 9:05 PM CDT) Patholo gist Method Time Signature Alkaline 79 25 - 125 OTHER Phosphatase, S (SPECIFY IN INTERNET SALES ASSOCIATE) Alanine 28 10 - 40 OTHER Amniotransferase, LD (SPECIFY IN INTERNET SALES ASSOCIATE) Aspartate 70 (A) 14 - 40 OTHER Aminotransferase (SPECIFY IN (AST), S INTERNET SALES ASSOCIATE) Bilirubin, Total, S 0.4 0.1 - 1.4 OTHER (SPECIFY IN INTERNET SALES ASSOCIATE) Bilirubin, Direct, S 0.2 0.01 - OTHER 0.4 (SPECIFY IN INTERNET SALES ASSOCIATE) Specimen (Source) Anatomical Location Collection Method / Collectio n Time Received Time / Laterality Volume Blood (Blood, Venous) Ordering Provider External M.D. LAB BLOOD ADD-ON Performing Organization Address City/State/ZIP Code Phon e Number OTHER (SPECIFY IN INTERNET SALES ASSOCIATE) OTHER (SPECIFY IN INTERNET SALES ASSOCIATE) N/A BMP (Basic Metabolic Panel) (12/17/2017 9:05 PM CDT) P athologist Signature Glucose 167 mg/dL OTHER (SPECIFY IN INTERNET SALES ASSOCIATE) BUN (Blood Urea 17 4 - 21 OTHER (SPECIFY Nitrogen), S IN INTERNET SALES ASSOCIATE) Creatinine 0.8 0.6 - 1.3 OTHER (SPECIFY IN INTERNET SALES ASSOCIATE) Potassium, S 3.7 3.4 - 5.3 OTHER (SPECIFY IN INTERNET SALES ASSOCIATE) Sodium, S 138 137 - 147 OTHER (SPECIFY IN INTERNET SALES ASSOCIATE) Specimen (Source) Anatomical Location Collection Method / Collectio n Time Received Time / Laterality Volume Blood (Blood, Venous) Ordering Provider External M.D. LAB BLOOD ADD-ON Performing Organization Address City/State/ZIP Code Phon e Number OTHER (SPECIFY IN INTERNET SALES ASSOCIATE) OTHER (SPECIFY IN INTERNET SALES ASSOCIATE) N/A (ABNORMAL) S-TSH (Thyroid-Stimulating Hormone - Sensitive) (12/17/2017 8:30 PM CDT) Analysis Performed At Patho logist Time Signature TSH 0.338 (A) 0.41 - OTHER (Thyrotropin) 5.90 (SPECIFY IN INTERNET SALES ASSOCIATE) Specimen (Source) Anatomical Location Collection Method / Collectio n Time Received Time / Laterality Volume Blood (Blood, Venous) Ordering Provider External M.D. LAB BLOOD ADD-ON Performing Organization Address City/State/ZIP Code Phon e Number OTHER (SPECIFY IN INTERNET SALES ASSOCIATE) OTHER (SPECIFY IN INTERNET SALES ASSOCIATE) N/A (ABNORMAL) Hemoglobin A1c (12/17/2017 8:30 PM CDT) P athologist Signature Hemoglobin A1c, 9.7 (A) 4.0 - 6.0 OTHER B (SPECIFY IN INTERNET SALES ASSOCIATE) Specimen (Source) Anatomical Location Collection Method / Collectio n Time Received Time / Laterality Volume Blood (Blood, Venous) Ordering Provider External M.D. LAB BLOOD ADD-ON Performing Organization Address City/State/ZIP Code Phon e Number OTHER (SPECIFY IN INTERNET SALES ASSOCIATE) OTHER (SPECIFY IN INTERNET SALES ASSOCIATE) N/A documented in this encounter Visit Diagnoses Not on filedocumented in this encounter Care Teams Pizza Delivery Relationship Specialty Start Date End Date Amanda Barrios, BRET, C.N.P. PCP - General 02/27/17 02/24/18 [address], [place] [phone] documented as of this encounter
--- OUTSIDE RECORDS SUMMARY | 2022-06-23 22:44 | XMS_ITS | Encounter Summary ---
:1970 Author Organization [facility] Address [address] [place] [address] Care Team Providers Name Role Phone Roz Pack M.D. Primary Care Provider Reason for Referral Outpatient (Routine) - Closed Specialty Diagnoses / Procedures Referred By Contact Refer red To Contact Nutrition Roz Pack M.D. [facility] Region [address] [place], [place] [phone] Referral ID Status Reason Start Date Expiration Date Visits Requ ested Visits Authorized [id number] Closed 03/02/2018 03/02/2019 1 1 Reason for Visit Reason Comments Diabetes Encounter Details Date Type Department Care Team Description 03/02/2018 Clinical Support Department of Roz Pack M .D. [address] [place] [phone] Diabetes Mellitus Type Internal Medicine in Zoë Michaels R.N. [address] [place] [address] 2 Hypoglycemia Without [place], [place] Coma (HCC) [address], [place] [address] Social History Tobacco Use Types [...] Sign Reading Time Taken Comments Blood Pressure 136/73 03/02/2018 2:22 PM CDT Pulse 70 03/02/2018 2:22 PM CDT Temperature - - Respiratory Rate - - Oxygen Saturation - - Inhaled Oxygen Concentration - - Weight 160 kg (353 lb 2.8 oz) 03/02/2018 2:22 PM CDT Height - - Body Mass Index 58.14 02/20/2018 9:48 AM CDT documented in this encounter Progress Notes Zoë Michaels R.N. - 03/02/2018 12:00 AM CDT PATIENT EDUCATION VISIT SUBJECTIVE CHIEF COMPLAINT/REASON FOR VISIT Referral is completed by Roz Pack for this 47-year-old with uncontrolled type 2 diabetes. Please CC: Roz Pack. HISTORY OF PRESENT ILLNESS Date of diagnosis was 1999. CURRENT DIABETES TREATMENT Diet, exercise, oral, and insulin. Self Blood Glucose Monitoring: He is checking 4 to 6 times a day. Fasting blood sugars range from 128 to 162. During the day 78 to 205. Hypoglycemia: None recently. Physical Activity: Sedentary. Present Diet: Decreased carbs and portions. CURRENT MEDICATIONS Reviewed EMR 03/02/2018. 1. Basaglar insulin 33 units every evening. 2. NovoLog insulin 20 units with meals. 3. Metformin extended release 500 mg tabs 1 every day. MEDICAL HISTORY Reviewed EMR 03/02/2018. No changes made. SURGICAL HISTORY Reviewed EMR 03/02/2018. No changes made. 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 MARITAL STATUS: Single. TOBACCO USE: None. ALCOHOL USE: Rare. FAMILY HISTORY Diabetes in maternal grandmother, mother, aunts, and uncles, and 2 of his brothers. VITAL SIGNS Weight is 160.2 kg, pulse 70, blood pressure 136/73. DIAGNOSTICS Hemoglobin A1c 12/17/2017 is 9.7%. ASSESSMENT / PLAN #1 Patient with uncontrolled type 2 diabetes with A1c at 9.7% He did bring in his glucose meter. I did go through the memory. His fasting blood sugars are now ranging from 128 to 161, during the day 78 to a high of 205. The vast majority of his blood glucose levels during the day are now less than 170. He states he has seen the dietitian and has decreased his carbohydrate intake. He is keeping a food diary and it does appear that he has decreased his carbohydrate intake. However, did not have amounts of the foods he is eating written down. I discussed carb counting with him at length. I discussed the onset, peak and duration of action of Basaglar and NovoLog insulin. I did advise him that every time he eats, he actually needs to be taking NovoLog insulin. He has stopped eating his snacks between meals which is probably a big part of his improved glycemic control. I did give him handouts on carb counting. Encouraged him to start looking up the actual grams of carbs that he is eating. I did tell him at his next appointment we could begin using an insulin tocarb ratio if he feels comfortable counting his grams of carbs. He verbalized understanding of all of the above. He is congratulated on the changes he has made. PLAN OF CARE: 1. No recommended changes in insulin doses. 2. Return in 1 month Total time with the patient was 60 minutes. Greater than 75% of that time was spent in counseling. Job ID: [id number] documented in this encounter Plan of Treatment Upcoming Encounters Date Type Specialty Care Team Description 06/26/2022 Appointment Neurology Preet Landeros M.D . [address] [place] [phone] Bria Suh APRN, C.N.P., M.S.N. [address] [place] [phone] 07/25/2022 Appointment Radiology Preet Landeros M.D . [address] [place] [address] [phone] (Wo rk) Scheduled Referrals Name Type Priority Associated Diagnoses Order S chedule Nutrition office Outpatient Referral Routine Expe cted: visit (clinic) 06/02/2018 (Approximate), Expires: 03/02/2021 documented as of this encounter Visit Diagnoses Diagnosis Diabetes Mellitus Type 2 Hypoglycemia [place] Coma (HCC) documented in this encounter Care Teams Relations Mgr Relationship Specialty Start Date End Date Roz Pack M.D. PCP - General Family Medicine 02/25/18 05/29/18 documented as of this encounter
--- OUTSIDE RECORDS SUMMARY | 2022-06-23 22:44 | XMS_ITS | Encounter Summary ---
:1970 Author Organization [facility] Address [address] [place] [address] Care Team Providers Name Role Phone Amanda Barrios APRN, C.N.P. Primary Care Provider [phone] Reason for Referral Outpatient (Routine) - Closed Specialty Diagnoses / Procedures Referred By Contact Refer red To Contact Neurology Diagnoses Apnea Sleep Obstructive Amanda Barrios APRN, [facility] C.N.P. [address] [place] [phone] Referral ID Status Reason Start Date Expiration Date Visits V isits Requested Authorized [id number] Closed Specialty 12/22/2017 06/20/2018 1 1 Services Required Scheduling Instructions [facility] Outpatient (Routine) - Closed Specialty Diagnoses / Referred By Contact Referred To Contact Procedures Cardiovascular Diseases / Diagnoses Hypertension Essential Primary Amanda Barrios [facility] Cardiovascular Disease BRET, C.N.P. [address] [place] [phone] Referral ID Status Reason Start Date Expiration Date Visits Requ ested Visits Authorized [id number] Closed 12/22/2017 06/20/2018 1 1 Scheduling Instructions Follow up ECHO [facility] December 18 Reason for Visit Reason Comments Follow-up Hospital follow up [facility] on 12/17/17. seizure like activity. Has abraised area on elbows and knees. Encounter Details Date Type Department Care Team Description 12/22/2017 Office Visit Department of Family Amanda Barrios Lon g Term Use Of Insulin Active (HCC) (Primary Dx); Medicine, [place] [email or web address]. Diabetes Mellitus Type 2 Hyperglycemia ( HCC); Clinic, in [place], [address] Vaccine Immunization; [place], [place] Apnea Sleep Obstructive; [facility] [address] [phone] Hypertension Essential Primary [place], [place] [phone] (Work) [phone] Social History Tobacco Use Types Packs/Day Years [...] or relatives? How often do you attend oriental orthodox or More than 4 times per year 06/02/2022 mu-ism services? 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 - 12/22/2017 10:00 AM CDT It was a pleasure seeing you in the clinic! My goal is to always provide excellent care for my patients. If you receive a clinic survey in the mail and felt you received great care, I would sure appreciate you filling it out and sending it in. Thanks and take care! AttachmentsThe following attachments cannot be sent through Care Everywhere. Common Questions & Answers About Diabetes and Nutrition (Latvian)documented in this encounter Progress Notes Amanda Barrios APRN, C.N.P. - 12/22/2017 10:00 AM CDT SUBJECTIVE CHIEF COMPLAINT: Chief Complaint Patient presents with ??? Follow-up Hospital follow up [facility] on 12/17/17. seizure like activity. Has abraised area on elbows and knees. HISTORY OF PRESENT ILLNESS: Paul is here with his mom. He was admitted to [facility] on December 17 with a hypoglycemicreaction which caused seizure-like activity during the night. He lives with his mom. She gave him pineapple juice and a cookie when she found him disoriented at 2:00 a.m. She did not check blood sugar as he was out of test strips. When the paramedics arrived his blood sugar was 91. A1c in September was s ignificantly elevated at 12.1. He had been increasing his NovoLog insulin was taking 20 units beforeeach meal. He also took 40 units of Basaglar insulin at bedtime. A1c while hospitalized on 12/17 was9.7. Chest x-ray and x-rays of the extremities were negative. He was seen by tobacco prevention health educator and advised to take 5 units of insulin per carbohydrate before meals. He had an echocardiogram, results are not in our chart yet, I will request them from [facility]. His discharge report advises follow up with Cardiology. Will schedule him with Dr. Cruz. He also needs sleep study. He has had no further episodes of hypoglycemia. He states his blood sugar was 176 before supper last night, he did not test before bed. Fasting blood sugar this morning was 168. REVIEW OF SYSTEMS: The following portions of the patient's history were reviewed and updated as appropriate: allergies,current medications, family history, medical history, social history, surgical history and problem list. ALLERGIES: Allergies Allergen Reactions ??? Lisinopril Cough MEDICATIONS: Current Outpatient Prescriptions: ??? ascorbic acid, vitamin C, (vitamin C) 1,000 mg tablet, Take 1 tablet by mouth daily., Disp: , Rfl: ??? aspirin 81 mg capsule, Take 81 mg by mouth daily., Disp: , Rfl: ??? atorvastatin (for_LIPITOR) 10 mg tablet, Take 1 tablet (10 mg total) by mouth at bedtime., Disp:90 tablet, Rfl: 1 ??? calcium carbonate-vitamin D3 (CALCIUM+D) 400-133.3 mg-unit [...] needed., Disp: , Rfl: ??? insulin aspart (NovoLOG Flexpen) 100 unit/mL injection, 20 units before each meal3 times daily.,Disp: 30 mL, Rfl: 2 ??? insulin glargine (BASAGLAR KWIKPEN) 100 unit/mL (3 mL) injection, Inject 0.4 mL (40 Units total)under the skin at bedtime., Disp: 15 mL, Rfl: 2 ??? multivitamin capsule, daily., Disp: , Rfl: ??? omeprazole (for_PriLOSEC) 20 mg capsule, Take 20 mg by mouth every morning before breakfast., Disp: , Rfl: ??? ONETOUCH ULTRA TEST strips, , Disp: , Rfl: ??? pen needle, diabetic (LITE TOUCH INSULIN PEN NEEDLES) 31 gauge x 5/16 needle, Inject insulin 4 times daily., Disp: 200 each, Rfl: 11 ??? valsartan (DIOVAN) 80 mg tablet, Take 1 tablet (80 mg total) by mouth daily., Disp: 90 tablet, Rfl: 3 OBJECTIVE VITAL SIGNS: Temperature: [36.5 ??C] 36.5 ??C Resp Rate: [16] 16 Blood Pressure: (146-148)/(68) 146/68 Pulse Rate: [72] 72 PHYSICAL EXAM: GENERAL: In general, the patient is pleasant and appears stated age. SKIN: Without lesion. EYES: PERRLA. EOMI intact. Fundi sharp discs. Conjunctiva and lids normal. ENT: Tympanic membranes clear bilaterally. Nasal mucosa without erythema or congestion. Mouth without erythema or exudate. LYMPH NODES: Neck: Supple without adenopathy, no thyromegaly. Carotid pulses are equal bilaterally. PERIPHERAL VESSELS: Femoral, dorsal, pedal and posterior tibial pulses are equal. HEART: Regular rate and rhythm without murmur. LUNGS: Clear to auscultation, good inspiratory effort. ABDOMEN: Soft, nontender, no palpable mass, no hepatosplenomegaly. EXTREMITIES: Warm, dry, no cyanosis or peripheral edema. MENTAL: Alert and oriented times three. NEUROLOGIC: Deep tendon reflexes are +2 and symmetrical. 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 ContinueBasaglar insulin 40 units at bedtime. #2 Diabetes Mellitus Type 2 Hyperglycemia ([facility]) Recommend he check blood sugar before bed daily as well as 2 hours after each male. He is going to work on regular exercise program with weight loss. Call with any episodes of hypoglycemia. Recheck A1cin 3 months. Schedule dilated eye exam. ROUTINE DIABETES CARE: Recommend a consistent carbohydrate diet and at least 30 minutes of daily exercise for healthy lifestyle. Standard diabetes management includes: Hemoglobin A1c checked every 3 months (every 6 months ifA1c is within target range); urine checked for microalbumin annually; annual dilated eye exam to scre en for diabetic retinopathy; and meticulous foot care. Your goal blood pressure less than 140/90. You should be on statin therapy and have an annual lipid profile. #3 Need Vaccine Immunization Pneumococcal vaccine given today. #4 Apnea Sleep Obstructive Scheduling consult with Dr. Elder, sleep Medicine. #5 Hypertension Essential Primary Worsening, blood pressure elevated today, will continue to monitor. Scheduling consult with Cardiology following echocardiogram at [facility] on 12/18/2017. Will request echocardiogram report. HEALTH MAINTENANCE: Due for dilated eye exam. documented in this encounter Plan of Treatment Upcoming Encounters Date Type Specialty Care Team Description 06/26/2022 Appointment Neurology Preet Landeros M.D . [address] [place] [phone] Bria Suh APRN, C.N.P., M.S.N. [address] [place] [phone] 07/25/2022 Appointment Radiology Preet Landeros M.D . [address] [place] [address] [phone] (Wo rk) Scheduled Referrals Name Type Priority Associated Diagnoses Order S [facility] Cardiovascular Disease Outpatient Routine Hypertension Expec shay: - General consultative Referral Essential Primary 12/22/2017 cardiology consult (Approxim ate), (clinic) Expires: 12/22/2020 Neurology - General Outpatient Routine Apnea Sleep Expected : consult (clinic) Referral Obstructive 12/22/2017 (Approximate), Expires: 12/22/2020 documented as of this encounter Visit Diagnoses Diagnosis Correction Use Of Insulin Active (HCC) - Primary Diabetes Mellitus Type 2 Hyperglycemia ( HCC) Need Vaccine Immunization Apnea Sleep Obstructive Hypertension Essential Primary documented in this encounter Care Teams Dispatch Associate Relationship Specialty Start Date End Date Amanda Barrios, COMPOSITE SCIENCE TEACHER, C.N.P. PCP - General 02/27/17 02/24/18 [address] [place] [phone] documented as of this encounter
--- OUTSIDE RECORDS SUMMARY | 2022-06-23 22:44 | XMS_ITS | Encounter Summary ---
:1970 Author Organization [facility] Address [address] [place] [address] Care Team Providers Name Role Phone Amanda Barrios APRN, C.N.P. Primary Care Provider [phone] Encounter Details Date Type Department Care Team Description 12/16/2017 Orders Only Department of Family Amanda Barrios APR N, Medicine, [facility], C.N. P. in [facility] [address] [phone] [place] [address] [phone] Social History Tobacco Use Types Packs/Day Years [...] or relatives? How often do you attend sikhism or More than 4 times per year 06/02/2022 scientologist services? Do you belong to any clubs or Yes 06/02/2022 organizations such as sikhism groups, unions, fraternal or athletic groups, or [...] or slept in a fpc (including now)? Sex Assigned at Date Recorded Male 01/30/2018 9:28 AM CDT documented as of this encounter Plan of Treatment Upcoming Encounters Date Type Specialty Care Team Description 06/26/2022 Appointment Neurology Preet Landeros M.D . [address] [place] [phone] Bria Suh APRN, C.N.P., M.S.N. [address] [place] [phone] 07/25/2022 Appointment Radiology Preet Landeros M.D . [address] [place] [address] [phone] (Wo rk) documented as of this encounter Visit Diagnoses Not on filedocumented in this encounter Care Teams Regulator Assembler Relationship Specialty Start Date End Date Amanda Barrios APRN, C.N.P. PCP - General 02/27/17 02/24/18 [address], [place] [phone] documented as of this encounter
--- OUTSIDE RECORDS SUMMARY | 2022-06-23 22:45 | XMS_ITS | Encounter Summary ---
:1970 Author Organization [facility] Address [address] [place] [address] Care Team Providers Name Role Phone Unavailable Primary Care Provider Unavailable Encounter Details Date Type Department Care Team Description 12/14/2015 Hospital Encounter HX [facility] Provider, Historic al Social History Tobacco Use Types Packs/Day Years Used Date Smoking Tobacco: Never Assessed Alcohol Habits Answer Date Recorded How often do you have a drink containing alcohol? Monthly or less 06/02/2022 How many drinks containing alcohol do you have on a 1 or 2 06/02/2022 typical day when you are drinking? How often do you have six or more drinks on one Never 06/02/2022 occasion? Comment: Not asked Social Isolation Answer Date Recorded In a [...] Concentration - - Weight - - Height 169 cm (5' 6.54) 12/14/2015 2:44 PM CDT Body Mass Index - - documented in this encounter Medications at Time of Discharge Medication Sig Dispensed Refills Start Date End Date aspirin 81 mg capsule Take 81 mg by mouth 0 03/09 daily. ascorbic acid, vitamin Take 1 tablet by mouth 0 0 11/23/2015 05/17/2020 C, (vitamin C) 1,000 mg daily. tablet calcium Take by mouth 2 (two) 0 03/25/201110/2019 carbonate-vitamin D3 times a day. (CALCIUM+D) 400-133.3 mg-unit tablet cetirizine (ZyrTEC) 10 Zyrtec 10 mg oral 0 200905/17/2020 mg tablet tablet PRN CINNAMON BARK (CINNAMON Take 1 capsule by 0 11/2205/17/2020 ORAL) mouth daily. fluocinonide Apply 1 application 0 01/09/201512/2017 (for_LIDEX) 0.05 % gel topically 2 (two) times a day. ibuprofen (ADVIL) 200 Take 2 tablets by 0 2 016 05/17/2020 mg tablet mouth as needed. multivitamin capsule daily. 0 03/09/201001/13 documented as of this encounter Miscellaneous Notes Telephone Encounter - Conversion, Historical Provider Ser - 12/27/2015 1:37 PM CDT *Phone Message Document Contains Addenda Addendum by ATIYA FELIPE APRN, CNP on December 27, 2015 16:59:10 CDT From: ATIYA FELIPE APRN, CNP To: DANIEL Felipe Nurse; Sent: 12/27/2015 16:59:10 CDT Subject: RE: *Phone Message Noted, thank you. Addendum by MARIKA LUCIANO CMA on December 27, 2015 16:53:25 CDT From: MARIKA LUCIANO CMA ( Sophie Nurse) To: ATIYA FELIPE APRN RETAIL LOSS PREVENTION INVESTIGATOR; Sent: 12/27/2015 16:53:25 CDT Subject: FW: *Phone Message Addendum by MARIKA LUCIANO CMA on December 27, 2015 16:53:17 CDT Contacted Paul and reviewed note from Dr Galvez of [facility]. Verified with Atiya Felipe CNP thatthe note read he was cleared to return to work 2 weeks from 12/07/2015 which would be 12/22/2015. I then Contacted Robbie at the number below and left her a message stateing that Paul was cleared for work on 12/22/2015. Addendum by ATIYA FELIPE APRN, CNP on December 27, 2015 15:48:55 CDT From: ATIYA FELIPE APRN, CNP To: DANIEL Felipe Nurse; Sent: 12/27/2015 15:48:55 CDT Subject: RE: *Phone Message Call Ashish and see what the surgeon or Emergency Service Worker has recommended. I haven't done anything with hismedical leave. Thats all been done through [facility]. Addendum by SHEA TIM LPN on December 27, 2015 15:20:48 CDT From: SHEA TIM LPN ( Sophie Nurse) To: ATIYA FELIPE APRN, CNP; Sent: 12/27/2015 15:20:48 CDT Subject: FW: *Phone Message From: TONI DOUGHERTY ( Finn Salt Cutter) To: DANIEL Felipe Nurse; Sent: 12/27/2015 13:37:17 CDT Subject: *Phone Message Caller is: ( ) Patient ( ) Mother ( ) Father ( ) Spouse ( ) Daughter ( ) Son ( ) Pharmacy ( x) Other: Robbie from [employer] Disability Physician: Patient MRN #: Reason for Call: Robbie has received medical and approved care through December 21. She is wondering if patient was released to go back to work on the ? Her direct # [phone]. She has a secure voicemail. Message: Advice/Action: Source used: ( ) Verbalizes understanding of instructions ( ) Instructed to call back if symptoms worsen or do not resolve ( ) Refused to see provider ( ) Appointment Scheduled ( ) OK to leave message on voice mail ( ) Patient told to expect return call: ( ) today ( ) tomorrow ( ) next work day ( ) Patient's email ( ) Patient told physician out of office, will call upon return call on ( ) ( ) Patient told physician out of office, routed to other physician ( ) Other ( ) Call back telephone number ( ) Call back cell phone number ( ) [facility] Document Id: [id number] documented in this encounter Plan of Treatment Upcoming Encounters Date Type Specialty Care Team Description 06/26/2022 Appointment Neurology Preet Landeros M.D . [address] [place] [phone] Bria Suh APRN, C.N.P., M.S.N. [address] [place] [phone] 07/25/2022 Appointment Radiology Preet Landeros M.D . [address] [place] [phone] (Wo rk) documented as of this encounter Procedures Procedure Name Priority Date/Time Associated Comments Diagnosis CREATININE WITH Routine 12/14/2015 2:48 PM Result s for this EGFR, S/P CDT procedure are i n the results section. documented in this encounter Results Creatinine with eGFR (12/14/2015 2:48 PM CDT) P athologist Signature Creatinine 0.9 0.8 - 1.3 POWERCHART MGDL HXeGFR (MDRD) >60 >=60 POWERCHART [id number] eGFR >60 >=60 POWERCHART Black/ [id number] [place] Specimen (Source) Anatomical Collection Method Collection Time Re ceived Time Location / / Volume Laterality Blood 12/14/2015 2:48 PM CDT Historical Provider LAB BLOOD ADD-ON Performing Organization Address City/State/ZIP Code Phon e Number POWERCHART documented in this encounter Visit Diagnoses Not on filedocumented in this encounter Additional Health Concerns Assessment Noted Time PHQ-9 Depression Total Score: 4 04/20/2015 2:22 PM CDT documented as of this encounter
--- OUTSIDE RECORDS SUMMARY | 2022-06-23 22:45 | XMS_ITS | Encounter Summary ---
:1970 Author Organization [facility] Address [address] [place] [address] Care Team Providers Name Role Phone Amanda Barrios APRN, C.N.P. Primary Care Provider [phone] Encounter Details Date Type Department Care Team Description 06/20/2017 Hospital Encounter HX [facility] Amanda Barrios APRN, C.N.P. [address] [place], [place] [phone] (Wo rk) Social History Tobacco Use Types Packs/Day Years Used Date Smoking Tobacco: Former Alcohol Habits Answer Date Recorded How often [...] - - Height 169 cm (5' 6.54) 06/20/2017 9:52 AM CDT Body Mass Index - - documented in this encounter Medications at Time of Discharge Medication Sig Dispensed Refills Start Date End Date aspirin 81 mg capsule Take 81 mg by mouth 0 03/09 daily. ascorbic acid, vitamin Take 1 tablet by mouth 0 0 11/23/2015 05/17/2020 C, (vitamin C) 1,000 mg daily. tablet atorvastatin Take 1 tablet by mouth 0 01/21/2017 09/18/2017 (for_LIPITOR) 10 mg at bedtime. tablet calcium Take by mouth 2 (two) 0 03/25/201110/2019 carbonate-vitamin D3 times a day. (CALCIUM+D) 400-133.3 mg-unit tablet cetirizine (ZyrTEC) 10 Zyrtec 10 mg oral 0 200905/17/2020 mg tablet tablet PRN CINNAMON BARK (CINNAMON Take 1 capsule by 0 11/2205/17/2020 ORAL) mouth daily. fluocinonide Apply 1 application 0 01/09/201512/2017 (for_LIDEX) 0.05 % gel topically 2 (two) times a day. fluticasone Administer 2 sprays 0 01/21/201710/2019 (for_FLONASE) 50 into each nostril as mcg/actuation nasal needed. spray glimepiride Take 1 tablet by mouth 0 12/30/2016 1 11/06/2016 (for_AMARYL) 4 mg daily. tablet ibuprofen (ADVIL) 200 Take 2 tablets by 0 12/07/ 016 05/17/2020 mg tablet mouth as needed. insulin aspart (NovoLOG Inject 32 Units under 0 0 04/07/2017 08/27/2017 Flexpen) 100 unit/mL the skin daily with injection dinner. insulin glargine Inject 40 Units under 0 04/07/20 17 09/18/2017 (LANTUS SOLOSTAR) 100 the skin at bedtime. unit/mL (3 mL) injection multivitamin capsule daily. 0 03/09/201001/13 valsartan (DIOVAN) 80 Take 1 tablet by mouth 0 09/18/2017 mg tablet daily. documented as of this encounter Plan of Treatment Upcoming Encounters Date Type Specialty Care Team Description 06/26/2022 Appointment Neurology Preet Landeros M.D . [address] [place] [phone] Bria Suh APRN, C.N.P., M.S.N. [address] [place] [phone] 07/25/2022 Appointment Radiology Preet Landeros M.D . [address] [place] [phone] (Wo rk) documented as of this encounter Visit Diagnoses Not on filedocumented in this encounter Additional Health Concerns Assessment Noted Time PHQ-9 Depression Total Score: 4 04/20/2015 2:22 PM CDT documented as of this encounter Care Teams Financial Market Dealer Relationship Specialty Start Date End Date Amanda Barrios APRN, C.N.P. PCP - General 02/27/17 02/24/[address] [place] [phone] documented as of this encounter
--- OUTSIDE RECORDS SUMMARY | 2022-06-23 22:45 | XMS_ITS | Encounter Summary ---
:1970 Author Organization [facility] Address [address] [place] [address] Care Team Providers Name Role Phone Unavailable Primary Care Provider Unavailable Encounter Details Date Type Department Care Team Description 12/14/2015 Hospital Encounter HX [facility] MyrMayra andres, DONOR SERVICES TECHNICIAN, C.N.P. [address], [place] [address] (Wo rk) Social History Tobacco Use Types [...] or relatives? How often do you attend latter day or More than 4 times per year 06/02/2022 baptism services? Do you belong to any clubs or Yes 06/02/2022 organizations such as latter day groups, unions, fraternal or athletic groups, or [...] Sign Reading Time Taken Comments Blood Pressure 132/74 12/14/2015 2:16 PM CDT Pulse 68 12/14/2015 2:16 PM CDT Temperature - - Respiratory Rate 20 12/14/2015 2:16 PM CDT Oxygen Saturation - - Inhaled Oxygen Concentration - - Weight 153 kg (337 lb 15.4 oz) 12/14/2015 2:16 PM CDT Height 169 cm (5' 6.54) 12/14/2015 2:16 PM CDT Body Mass Index 53.68 12/14/2015 2:16 PM CDT documented in this encounter Medications at [...] (ADVIL) 200 Take 2 tablets by 0 016 05/17/2020 mg tablet mouth as needed. multivitamin capsule daily. 0 03/09/201001/13 documented as of this encounter Progress Notes Atiya Felipe APRN, CBonNBonP. - 12/14/2015 2:48 PM CDT Clinic Full Note CHIEF COMPLAINT/REASON FOR VISIT Follow up procedure in [place]. Wants right elbow and wrist checked. Dry spots. HISTORY OF PRESENT ILLNESS Cali is here for post-hospitalization recheck. He had cryoablation left renal cell carcinoma on December 06. 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 He has follow up in 3 months. Today he needs a creatinine and hemoglobin checked. He is doing well. MEDICATIONS aspirin, 81 mg, PO, Daily atorvastatin 10 mg oral tablet, 10 mg, 1 tab(s), PO, Bedtime, 3 refills Calcium 600+D, PO, 2xDay Diovan 80 mg oral tablet, 80 mg, 1 tab(s), PO, Daily, 3 refills fluticasone 50 mcg/inh nasal spray, 2 spray(s), Nostrils(Both), Daily, 11 refills glimepiride 4 mg oral tablet, 4 mg, 1 tab(s), with breakfast-, PO, Daily, 3 refills Lantus Solostar Pen 100 units/mL subcutaneous solution, 30 units, Subcut., Bedtime, 6 refills Lidex 0.05% topical gel, 1 kahlil, Topical, 2xDay, 1 refills multivitamin, Daily NovoLOG FlexPen 100 units/mL subcutaneous solution, 10 units, before vgppavM65.65; Z79.4, Subcut., Daily, 3 refills Zegerid OTC, 1 cap(s), PO, Daily Zyrtec 10 mg oral tablet, PRN ALLERGIES lisinopril (Cough) PAST MEDICAL HISTORY Chronic Carcinoma Renal Cell L Diabetes mellitus type II DM2 Uncontrolled Eczema NOS Hernia, ventral, unspecified Hyperlipidemia NOS Hypertension (HTN) NOS 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 (05/29/2011), Appendectomy (10/30/1984). SOCIAL HISTORY Date Time: 12/14/2015 14:16 Tobacco: Smoking Status: Former smoker Exposure: Other: Quit fall Alcohol: Use: No Results Found Recreational Drugs: Use: None Type: No Results Found FAMILY HISTORY Brother:Positive: Diabetes mellitus HEALTH MAINTENANCE Up to date. SYSTEMS REVIEW Positive for that mentioned in the History of Present Illness and Past Medical History. All other systems were reviewed and were negative. VITAL SIGNS T: 36.8 ??C (Core) HR: 68 RR: 20 BP: 132 / 74 HT: 169 cm WT: 153.3 kg BMI: 53.67 PHYSICAL EXAMINATION GENERAL: Well-developed, well-nourished, in no acute distress. SKIN: Warm and dry. HEENT: TMs clear. Throat clear. NECK: Supple. No lymphadenopathy or thyromegaly. HEART: Regular rate and rhythm. S1, S2. No murmur. LUNGS: Clear to auscultation. No wheezes or rales. ABDOMEN: Soft, nontender. No hepatosplenomegaly. EXTREMITIES: Warm, dry. No peripheral edema. LAB RESULTS Creatinine and hemoglobin are pending. IMPRESSION/REPORT/PLAN Carcinoma Renal Cell L Stable, checking hemoglobin and creatinine today. He will follow up with Nephrology in 3 months as directed. Ordered: Hemoglobin OV Est Pt Level 3 - 12127 - 15 min Electronically Signed By: ATIYA FELIPE APRN FIELD SERVICE MANAGER On: 12/14/2015 02:53 PM Source: [employer] Document Id: [id number] documented in this encounter Nursing Notes Randi Harris - 09/24/2016 1:26 PM CST panel management Pt due for fasting diabetic labs with additional lab coming due in November. Pt contacted, unable to schedule at this time, will call back to schedule. Electronically Signed By: RANDI HARRIS LPN On: 09/24/2016 01:26 PM Source: [employer] Document Id: [id number] CLOTH CHECKER Tayo Benson L.P.NBon - 05/08/2016 9:38 AM CDT Panel management call Contacted patient in regards to being due for fasting diabetic labs and office visit with Torito. Patient will call back to schedule. Electronically Signed By: TAYO BENSON LPN On: 05/08/2016 09:39 AM Source: [employer] Document Id: [id number] Randi Harris - 04/08/2016 9:16 AM CDT panel management Pt due for diabetic labs/OV with additional labs due early next month. Attempted to contact pt to schedule/consolidate, message left for pt to return call. Electronically Signed By: RANDI HARRIS LPN On: 04/08/2016 09:17 AM Source: [employer] Document Id: [id number] Randi Harris - 12/20/2015 9:51 AM CDT panel management Pt due for diabetic A1c as well as urine for microalbumin and office visit on or after 01/25/16. Pt contacted, will call back to schedule. Electronically Signed By: RANDI HARRIS LPN On: 12/20/2015 09:52 AM Source: [employer] Document Id: [id number] Atiya Felipe APRN, C.N.P. - 12/14/2015 2:42 PM CDT Ambulatory Patient Education The following Patient Education Materials have been given to the patient: Patient Education Materials: Oncology What Is Kidney (Renal) Cancer? Oncology What Is Kidney (Renal) Cancer? Cancer occurs when cells in the body begin changing and multiplying out of control. These cells can form lumps of tissue called tumors. Cancer that starts in a kidney is called kidney or renal cancer. Understanding the Kidneys The kidneys are hernandez-shaped organs about the size of a bar of soap. They are found in the low back area, one on each side of the spine. The kidneys help keep the body alive by filtering waste and excess fluid from the blood. The kidneys send this liquid and waste (urine) to the bladder through the ureters. Urine then leaves the body through the urethra. When Kidney Cancer Forms Kidney cancer forms when cells in the kidney change and multiply abnormally. The cancer can interfere with the working of the kidneys. Kidney cancer may spread beyond the kidneys to other parts of the body. This spread is called metastasis. The more the cancer spreads, the harder it is to treat. Treatment Options for Kidney Cancer You and your health care provider will discuss a treatment plan that's best for your needs. Treatment options may include: ?? Surgery to remove the cancerous kidney and, in some cases, surrounding tissue. ?? Radiation therapy, which uses directed rays of energy to kill cancer cells. ?? Chemotherapy, which uses strong medications to kill cancer cells. ?? Targeted therapies, which use drugs to focus on or prevent molecular and genetic changes in the cell. These drugs keep the cells from growing out of control. ?? Immunotherapy, which strengthens the body's own immune system to help fight cancer. ?? 2966-3423 [facility], [address] [place] [address]. All rights reserved. This information is not intended as a substitute for professional medical care. Always follow your healthcare professional's instructions. This document has images extracted. Please consider using [employer] for all your patient education needs. Source: [facility] POWERCHART Document Id: [id number] documented in this encounter Miscellaneous Notes Telephone Encounter - Nenita Sun M.D. - 02/14/2017 12:00 AM CDT [id number] Fasting glucose 244. Triglycerides 278. HDL 39. Hemoglobin A1c 10.7. Urine microalbumin 31. Other labs are stable. Would recommend following up in the clinic to discuss various evaluation and treatmentoptions. Card is sent to patient in regard to this issue. Nenita Sun M.D./vicente Electronically Signed By: NENITA SUN MD On: 02/17/2017 08:51 AM Modified by and Electronically Signed by: NENITA SUN MD On: 02/17/2017 08:51 AM Source: [facility] MHSDOLBEYNONRADSYS Document Id: [id number] Telephone Encounter - Alber Cortes R.N. - 01/23/2017 9:47 AM CDT Refill request - Glimepiride - Overdue for Appointment and labs. Document Contains Addenda Addendum by DEBO TIM LPN on January 23, 2017 14:04:14 CDT From: DEBO TIM LPN (DANIEL Felipe Nurse) To: ATIYA FELIPE APRN, CNP; Sent: 01/23/2017 14:04:14 CDT Subject: FW: Refill request - Glimepiride - Overdue for Appointment and labs. Addendum by DEBO TIM LPN on January 23, 2017 14:04:07 CDT Spoke with: ( x_ ) Patient ( _ ) Parent ( _ ) Spouse ( _ ) Child ( ) Other: _ Call back telephone number: [phone] Reason for Call: -Returning my call. Informed Cali that refills on medication are denied. Informedhim that he needs to schedule appointment with Atiya and needs to completed fasting labs. Chief Complaint: Informed Cali that refills on medications are denied. Informed him that he needs to schedule appointment with Atiya and needs to complete fasting labs. He will call back to schedule. Patient/Caller response to Education/Information given: ( x ) Verbalizes understanding of instructions ( _ ) Provide intervention per provider instruction ( _ ) Reinforce information already given ( _ ) Reinforce Plan of Care ( _ ) Provide preprinted information by mail (if applicable) Source/Reference used (if applicable): Atiya J. Myrom, FIELD SERVICE MANAGER OK to leave message on voice mail? N/A OK to send message via patient portal? N/A Patient told to expect return call: ( _ ) today ( _ ) tomorrow ( _ ) next work day Callers preferred language for Healthcare discussion: Ghanaian Was an hourly sign language interpreter used for this call? No Other ( --_ ) Addendum by PARUL NICHOLSON on January 23, 2017 13:28:44 CDT The patient called back, please return his call Addendum by DEBO TIM LPN on January 23, 2017 11:05:48 CDT Attempted to contact patient. Message left to return my call. Addendum by ATIYA FELIPE APRN, CNP on January 23, 2017 10:05:51 CDT From: ATIYA FELIPE APRN, CNP To: DANIEL Felipe Nurse; Sent: 01/23/2017 10:05:51 CDT Subject: RE: Refill request - Glimepiride - Overdue for Appointment and labs. Declined, needs appoinment and fasting labs. From: ALBER CORTES RN ([facility] Medication Refill) To: ATIYA FELIPE APRN, CNP; Sent: 01/23/2017 09:47:34 CDT Subject: Refill request - Glimepiride - Overdue for Appointment and labs. Caller is: ( _ ) Patient ( _ ) Mother ( _ ) Father ( _ ) Spouse ( _ ) Daughter ( _ ) Son ( x ) Pharmacy ( _ ) Other: _ Provider: Marika Pharmacy: [facility] Name of Medications Needing Refill: Glimepiride Last Refill Date: 12/30/16 Additional Information: Last HgbA1C 10/26/15 = 9.4%; multiple notifications made that appointment andlabwork are due, including with at least his last 2 refills. No appointment scheduled. Last / Future Appointment: 12/14/15 Disposition: ( x ) Send to Pharmacy ( _ ) Call to Pharmacy ( _ ) Patient will pick pack worker Script ( _ ) Mail Rx to Patient Source: [facility] POWERCHART Document Id: [id number] CLOTH CHECKER Miscellaneous - Alber Cortes R.N. - 12/30/2016 11:41 AM CDT refill request - Glimepiride Document Contains Addenda Addendum by ATIYA FELIPE APRN, CNP on December 30, 2016 11:46:55 CDT From: ATIYA FELIPE APRN, CNP Sent: 12/30/2016 11:46:55 CDT Subject: RE:refill request - Glimepiride Approved Order:glimepiride (glimepiride 4 mg oral tablet) 1 tab(s) PO Daily with breakfast-NO FURTHER REFILLSWITHOUT APPOINTMENT. Qty: 30 tab(s) Refills: 0 Substitutions Allowed Route To Pharmacy - [place] [id number] [facility] Signed by ATIYA FELIPE APRN, CNP 12/30/2016 11:46:50 From: ALBER CROTES RN ([facility] Medication Refill) To: ATIYA FELIPE APRN, CNP; Sent: 12/30/2016 11:41:47 CDT Subject: refill request - Glimepiride On hold pending signature Order:glimepiride (glimepiride 4 mg oral tablet) 1 tab(s) PO Daily with breakfast-NO FURTHER REFILLSWITHOUT APPOINTMENT. Qty: 30 tab(s) Refills: 0 Substitutions Allowed Route To Pharmacy - [place] [id number] [facility] Caller is: ( _ ) Patient ( _ ) Mother ( _ ) Father ( _ ) Spouse ( _ ) Daughter ( _ ) Son ( x ) Pharmacy ( _ ) Other: _ Provider: Marika Pharmacy: [facility] Name of Medications Needing Refill: Glimepiride Last Refill Date: 11/27/16 Additional Information: notified on last refill that appointment was needed. 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 - 11/27/2016 11:24 AM CDT refill request - Glimepiride - Myrom patient From: ALBER CORTES RN ([facility] Medication Refill) To: NENITA SUN MD; Sent: 11/27/2016 11:24:58 CDT Subject: refill request - Glimepiride - Myrom patient On hold pending signature Order:glimepiride (glimepiride 4 mg oral tablet) 1 tab(s) PO Daily with breakfast- NO FURTHER REFILLS WITHOUT LABS OR APPOINTMENT Qty: 30 tab(s) Refills: 0 Substitutions Allowed Route To Pharmacy - [facility] [id number] [facility] Caller is: ( _ ) Patient ( _ ) Mother ( _ ) Father ( _ ) Spouse ( _ ) Daughter ( _ ) Son ( x ) Pharmacy ( _ ) Other: _ Provider: Corinne Felipe Pharmacy: [facility] Name of Medications Needing Refill: glimepiride Last Refill Date: 08/28/16 Additional Information: Overdue for Labs and Appointment. Multiple calls from Panel Management. No appointment scheduled. 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 - 07/19/2016 8:51 AM CDT Lantus From: DIANA FRENCH RN ([facility] Medication Refill) To: NENITA SUN MD; Sent: 07/19/2016 08:51:29 CDT Subject: Lantus Caller is: ( ) Patient ( ) Mother ( ) Father ( ) Spouse ( ) Daughter ( ) Son ( [facility] ) Pharmacy ( ) Other: Physician: Marika Patient MRN #: Reason for Call: Message: S Lantus B Patient is going to be out of Lantus before the weekend. Can you give patient a fill? Please lookat previous message as way I can not fill...Thanks....Pharmacy called. Advice/Action: Source used: ( ) Verbalizes understanding [...] back cell phone number ( ) Source: [facility] POWERCHART Document Id: [id number] Electronically signed by Conversion, [facility] Commutator V Ring Assembler [id number] at 02/08/2017 3:59 PM CDT Telephone Encounter - Diana French, RIvelisse. - 07/15/2016 10:19 AM CDT Lantus From: DIANA FRENCH RN ([facility] Medication Refill) To: NENITA SUN MD; Sent: 07/15/2016 10:19:32 CDT Subject: Lantus Caller is: ( ) Patient ( ) Mother ( ) Father ( ) Spouse ( ) Daughter ( ) Son ( [facility] ) Pharmacy ( ) Other: Physician: marika Patient MRN #: Reason for Call: Message: S Lantus B Directions where changed to 30 units subq at HS from 25 units SQ at HS and pharmacy needs new directions sent. Please send new directions..... Advice/Action: Source used: ( ) Verbalizes understanding [...] back cell phone number ( ) Source: [employer] Document Id: [id number] Electronically signed by Conversion, [employer] Commutator V Ring Assembler [id number] at 02/08/2017 3:59 PM CDT Miscellaneous - Tayo Benson, L.P.N. - 06/27/2016 11:16 AM CDT Diabetic labs/appointment From: TAYO BENSON LPN To: CALI PICKETT Sent: 06/27/2016 11:16:35 CDT Subject: Diabetic labs/appointment Cali, According to your records you are due for fasting diabetic labs and office visit with Atiya Felipe. Please call to schedule an appointment at [phone] . Thank you Source: [employer] Document Id: [id number] Electronically signed by Conversion, [employer] Commutator V Ring Assembler [id number] at 02/08/2017 3:59 PM CDT Miscellaneous - Atiya Felipe APRN, C.N.P. - 12/14/2015 3:05 PM CDT From: ATIYA FELIPE APRN FIELD SERVICE MANAGER To: CALI PICKETT Sent: 12/14/2015 15:05:40 CDT Ashish, Hemoglobin is good. Atiya Results: Date Result Name Ind Value Ref Range 12/14/2015 14:44 Hgb (L) 12.9 g/dL (13.5 - 17.5) Source: [employer] Document Id: [id number] Miscellaneous - Atiya Felipe APRN, C.N.P. - 12/14/2015 2:43 PM CDT Ambulatory Patient Summary [id number] [place], [place] [id number] Visit Information Name: CALI PICKETT [facility] Number: [id number] Current Date: 12/14/2015 14:42:59 Physicians Attending Provider: ATIYA FELIPE APRN FIELD SERVICE MANAGER Primary Care Provider: ATIYA FELPIE APRN FIELD SERVICE MANAGER CALI PICKETT has been given the following list of follow-up instructions, medication list, and patient education materials: Follow-up Instructions Your Medications Here is a list of your medications. It is important to take your medications as directed. Use a pillbox or chart to help remind you to take your medications. Please let your doctor or nurse know if you have problems taking your medications. Medication/Strength How to Take Indications/Special Instructions/Comments/Notes for Patient Medication Changes/Routing ascorbic acid (Vitamin C) aspirin (aspirin) 81 mg, Oral, once a day atorvastatin (atorvastatin 10 mg oral tablet) 1 Tablet(s), Oral, once a day (at bedtime) calcium-vitamin D (Calcium 600+D) Oral, two times a day cetirizine (Zyrtec 10 mg oral tablet) as needed for Allergy symptoms fluocinonide topical (Lidex 0.05% topical gel) 1 kahlil, Topical, two times a day fluticasone nasal (fluticasone 50 mcg/inh nasal spray) 2 Porterfield(s), Nostrils(Both), once a day glimepiride (glimepiride 4 mg oral tablet) 1 Tablet(s), Oral, once a day with breakfast- insulin aspart (NovoLOG FlexPen 100 units/mL subcutaneous solution) 10 units, Subcutaneous, once a day before dinner E11.65; Z79.4 insulin glargine (Lantus Solostar Pen 100 units/mL subcutaneous solution) 30 units, Subcutaneous, once a day (at bedtime) multivitamin (multivitamin) once a day omeprazole-sodium bicarbonate (Zegerid OTC) 1 cap, Oral, once a day valsartan (Diovan 80 mg oral tablet) 1 Tablet(s), Oral, once a day Stop Taking the Following Medications: Medication list as of 12-14-15 14:43 Attention: If you have any medications at home that are not on this list, DO NOT take them until youcontact your provider for clarification. Give a copy of your medication list to your primary care provider. Update your medication list any time medications or doses are changed and carry your medication list at all times in case of emergency. Electronically Signed By: ATIYA FELIPE APRN, CNP Signed On:14-DEC-2015 14:42:35 Your Allergies & Intolerances Substance Reaction Symptoms Category Comments lisinopril Cough Drug Your Problem List Problem Status Onset Comments Morbid Obesity (BMI > 40) (V85.4) Active Hernia, ventral, unspecified Active Psoriasis Active 01/26/2013 Hypertension (HTN) NOS Active Eczema NOS Active Hyperlipidemia NOS Active Halfway Use Of Insulin Active Active DM2 Uncontrolled Active Carcinoma Renal Cell L Active 11/02/2015 11/08/15 Per MRI [place], [place] Your Upcoming Appointments Date Time Location Provider No Appointments found Attention: Contact your local Clinic if further appointment detail needed. What Is Kidney (Renal) Cancer? Cancer occurs when cells in the body begin changing and multiplying out of control. These cells can form lumps of tissue called tumors. Cancer that starts in a kidney is called kidney or renal cancer. Understanding the Kidneys The kidneys are hernandez-shaped organs about the size of a bar of soap. They are found in the low back area, one on each side of the spine. The kidneys help keep the body alive by filtering waste and excess fluid from the blood. The kidneys send this liquid and waste (urine) to the bladder through the ureters. Urine then leaves the body through the urethra. When Kidney Cancer Forms Kidney cancer forms when cells in the kidney change and multiply abnormally. The cancer can interfere with the working of the kidneys. Kidney cancer may spread beyond the kidneys to other parts of the body. This spread is called metastasis. The more the cancer spreads, the harder it is to treat. Treatment Options for Kidney Cancer You and your health care provider will discuss a treatment plan that's best for your needs. Treatment options may include: ?? Surgery to remove the cancerous kidney and, in some cases, surrounding tissue. ?? Radiation therapy, which uses directed rays of energy to kill cancer cells. ?? Chemotherapy, which uses strong medications to kill cancer cells. ?? Targeted therapies, which use drugs to focus on or prevent molecular and genetic changes in the cell. These drugs keep the cells from growing out of control. ?? Immunotherapy, which strengthens the body's own immune system to help fight cancer. ?? [id number] [facility], [address] [place] [address], [place] [address]. All rights reserved. This information is not intended as a substitute for professional medical care. Always follow your healthcare professional's instructions. Consider Using Patient Online [employer] Patient Online [employer] is a secure online and Mobile application that lets you: ?? View lab and test results ?? View portions of your medical record including clinical notes, immunizations and discharge summaries ?? Request an appointment or medication refill ?? Review your appointment schedule ?? Send secure messages to your care team Its easy to create an account if you dont have one. Go to [email or web address] and click on Create Your Account. Then, follow the directions to complete the online form. Youll be asked for your [facility] number which you can find at the top of this document. Your Goals/Additional instructions: This document has images extracted. Please consider using [employer] for all your patient education needs. Source: [facility] POWERCHART Document Id: [id number] Miscellaneous - Atiya Felipe APRN, C.N.P. - 12/14/2015 2:42 PM CDT Ambulatory Discharge Medication List [address] [id number] Visit Information Name: CALI PICKETT [facility] Number: [id number] Visit Date: 12/14/2015 14:42:58 Attending Provider: ATIYA FELIPE APRN FIELD SERVICE MANAGER Primary Care Provider: ATIYA FELIPE APRN FIELD SERVICE MANAGER CALI PICKETT has been given the following list of medications: Your Medications It is important to take your medications as directed. Use a pill box or chart to help remind you to take your medications. Please let your doctor or nurse know if you have problems taking your medications. Medication/Strength How to Take Indications/Special Instructions/Comments/Notes for Patient Medication Changes/Routing ascorbic acid (Vitamin C) aspirin (aspirin) 81 mg, Oral, once a day atorvastatin (atorvastatin 10 mg oral tablet) 1 Tablet(s), Oral, once a day (at bedtime) calcium-vitamin D (Calcium 600+D) Oral, two times a day cetirizine (Zyrtec 10 mg oral tablet) as needed for Allergy symptoms fluocinonide topical (Lidex 0.05% topical gel) 1 kahlil, Topical, two times a day fluticasone nasal (fluticasone 50 mcg/inh nasal spray) 2 Porterfield(s), Nostrils(Both), once a day glimepiride (glimepiride 4 mg oral tablet) 1 Tablet(s), Oral, once a day with breakfast- insulin aspart (NovoLOG FlexPen 100 units/mL subcutaneous solution) 10 units, Subcutaneous, once a day before dinner E11.65; Z79.4 insulin glargine (Lantus Solostar Pen 100 units/mL subcutaneous solution) 30 units, Subcutaneous, once a day (at bedtime) multivitamin (multivitamin) once a day omeprazole-sodium bicarbonate (Zegerid OTC) 1 cap, Oral, once a day valsartan (Diovan 80 mg oral tablet) 1 Tablet(s), Oral, once a day Stop Taking the Following Medications: Medication list as of 12-14-15 14:42 Attention: If you have any medications at home that are not on this list, DO NOT take them until youcontact your provider for clarification. Give a copy of your medication list to your primary care provider. Update your medication list any time medications or doses are changed and carry your medication list at all times in case of emergency. Electronically Signed By: ATIYA FELIPE APRN, CNP Signed On:14-DEC-2015 14:42:35 Additional Information: Source: [facility] POWERCHART Document Id: [id number] Miscellaneous - Vielkarubina Debojesus Ennis L.P.N. - 12/14/2015 2:16 PM CDT Adult Nursing Professor Intake/History Adult Nursing Professor Intake/History Entered On: 12/14/2015 14:18 CDT Performed On: 12/14/2015 14:16 CDT by DEBO TIM LPN Intake Chief Complaint : Follow up procedure in [place]. Wants right elbow and wrist checked. Dry spots. Temperature Core : 36.8 DegC(Converted to: 98.2 DegF) Peripheral Pulse Rate : 68 /min Respiratory Rate : 20 /min Heart Rhythm : Regular Systolic Blood Pressure : 132 mmHg Diastolic Blood Pressure : 74 mmHg NIBP Mean : 93 mmHg BP Location : Right upper extremity Blood Pressure Cuff Size : Large Height : 169 cm(Converted to: 5 ft 7 inch(es), 67 inch(es)) Actual Weight : 153.3 kg(Converted to: 337 lb 15 oz) Weight Source : Standing scale Dosing Weight Clinic : 153.3 kg Clinic BSA : 2.68 Body Mass Index : 53.67 kg/m2 GLENROY DEBOJESUS PULLIAM LPN - 12/14/2015 14:16 CDT General Info Information Given By : Patient Preferred Communication Mode : Verbal Languages : Ghanaian Is Patient Female and 13-50 no hysterectomy : No DEBO TIM LPN - 12/14/2015 14:16 CDT Subjective Pain Symptoms : No DEBO TIM LPN - 12/14/2015 14:16 CDT Dependent Habits Exposure to Tobacco Smoke : Other: Quit fall Smoking Status : Former smoker Tobacco 2A : Yes Tobacco Use/Currently Using : No Tobacco Use/Last 30 Days : No Tobacco Use/Last 12 months : No Tobacco Last Use/Year : 2013 DEBO TIM LPN - 12/14/2015 14:16 CDT Caffeine Use Grid Caffeine Use : Current Type : Chocolate, Coffee, Soft drinks, Tea Frequency : Daily DEBO TIM LPN - 12/14/2015 14:16 CDT Recreational Drug Use Grid Drug Use : None DEBO TIM LPN - 12/14/2015 14:16 CDT [facility] Document Id: [id number] documented in this encounter Plan of Treatment Upcoming Encounters Date Type Specialty Care Team Description 06/26/2022 Appointment Neurology Preet Landeros M.D . [address] [place] [phone] Bria Suh APRN, C.N.P., M.S.N. [address] [place] [phone] 07/25/2022 Appointment Radiology Preet Landeros M.D . [address] [place] [address] [phone] (Wo rk) documented as of this encounter Procedures Procedure Name Priority Date/Time Associated Diagnosis Comme nts HEMOGLOBIN, B Routine 12/14/2015 2:44 PM Results for this CDT procedure are i n the results section . documented in this encounter Results (ABNORMAL) Hemoglobin (12/14/2015 2:44 PM CDT) athologist Signature Hemoglobin 12.9 (L) 13.5 - 17.5 POWERCHART GDL Specimen (Source) Anatomical Collection Method Collection Time Re ceived Time Location / / Volume Laterality Blood 12/14/2015 2:44 PM CDT Atiya Felipe APRN, C.N.P. LAB BLOOD ADD-ON Performing Organization Address City/State/ZIP Code Phon e Number POWERCHART documented in this encounter Visit Diagnoses Not on filedocumented in this encounter Additional Health Concerns Assessment Noted Time PHQ-9 Depression Total Score: 4 04/20/2015 2:22 PM CDT documented as of this encounter
--- OUTSIDE RECORDS SUMMARY | 2022-06-23 22:45 | XMS_ITS | Encounter Summary ---
:1970 Author Organization [facility] Address [address] [place] [address] Care Team Providers Name Role Phone Amanda Barrios APRN, C.N.P. Primary Care Provider [phone] Reason for Referral Outpatient (Routine) - Closed Specialty Diagnoses / Procedures Referred By Contact Refer red To Contact Family Medicine Diagnoses Diabetes Mellitus Type 2 Hyperglycemia (HCC) Amanda Barrios APRN, [facility] C.N.P. [address] [place] [address] Referral ID Status Reason Start Date Expiration Date Visits Requ ested Visits Authorized [id number] Closed 09/17/2017 03/16/2018 1 1 Scheduling Instructions Diabetes recheck RDS MANAGEMENT CLERK Encounter Details Date Type Department Care Team Description 09/17/2017 Orders Only Department of Family Amanda Barrios Dia betes Mellitus Type 2 Medicine, [place] [facility], C.N.P. Hyperglycemia (HCC) Clinic, in [place], [address] (Primary Dx) [place], [place] [address] [address] [place], [place] [phone] (Work) [phone] Social History Tobacco Use Types Packs/Day Years [...] Neurology Preet Landeros M.D . [address] [place] [phone] Bria Suh APRN, C.N.P., M.S.N. [address] [place] [phone] 07/25/2022 Appointment Radiology Preet Landeros M.D . [address] [place] [address] [phone] (Wo rk) Scheduled Referrals Name Type Priority Associated Diagnoses Order S [facility] Medicine Outpatient Referral Routine Diabetes Mellitus Type Expected: office visit 2 Hyperglycemia (HCC) 2017 (clinic) (Approximate), Expires: 09/17/2020 documented as of this encounter Results (ABNORMAL) Hemoglobin A1c (03/20/2018 8:49 AM CDT) P athologist Signature Hemoglobin A1c, 7.4 (H) 4.2 - 5.6 03/20/2018 [facility] B % 11:53 AM CDT [facility] Comment: Hemoglobin A1c values greater than [...] Organization Address City/State/ZIP Code Phon e Number [facility] [address] [place] [phone] LAB documented in this encounter Visit Diagnoses Diagnosis Diabetes Mellitus Type 2 Hyperglycemia ( HCC) - Primary documented in this encounter Additional Health Concerns Assessment Noted Time PHQ-9 Depression Total Score: 4 04/20/2015 2:22 PM CDT documented as of this encounter Care Teams Fraud Prevention Analyst Relationship Specialty Start Date End Date Amanda Barrios APRN, C.N.P. PCP - General 02/27/17 02/24/182199 [address] [phone] documented as of this encounter
--- OUTSIDE RECORDS SUMMARY | 2022-06-23 22:45 | XMS_ITS | Encounter Summary ---
:1970 Author Organization [facility] Address [address] [place] [address] Care Team Providers Name Role Phone Amanda Barrios APRN, C.N.P. Primary Care Provider Encounter Details Date Type Department Care Team Description 08/28/2017 Orders Only Department of Family Amanda Barrios APR N, Medicine, [facility], C.N. P. in [facility] [address] [phone] [place] [address] [phone] Social History Tobacco Use Types Packs/Day Years [...] Neurology Preet Landeros M.D . [address] [place] [address] Bria Suh APRN, C.N.P., M.S.N. [address] [place] [phone] 07/25/2022 Appointment Radiology Preet Landeros M.D . [address] [place] [phone] (Wo rk) documented as of this encounter Visit Diagnoses Not on filedocumented in this encounter Additional Health Concerns Assessment Noted Time PHQ-9 Depression Total Score: 4 04/20/2015 2:22 PM CDT documented as of this encounter Care Teams Assistant Cook Relationship Specialty Start Date End Date Amanda Barrios APRN, C.N.P. PCP - General 02/27/17 02/24/18 [address] [place] [phone] documented as of this encounter
--- OUTSIDE RECORDS SUMMARY | 2022-06-23 22:45 | XMS_ITS | Encounter Summary ---
:1970 Author Organization [facility] Address [address] [place] [address] Care Team Providers Name Role Phone Amanda Barrios APRN, C.N.P. Primary Care Provider [phone] Reason for Visit Reason Comments Communication Encounter Details Date Type Department Care Team Description 08/28/2017 Clinical Communication Department of Mayda Russell, Communication Medicine, [place] [facility], C.N.P. [facility], in [facility] [address] [address] [place], [place] [phone] (Work) [phone] Social History Tobacco Use Types Packs/Day Years [...] Neurology Preet Landeros M.D . [address] [place] [address] Bria Suh APRN, C.N.P., M.S.N. [address] [place] [phone] 07/25/2022 Appointment Radiology Preet Landeros M.D . [address] [place] [phone] (Wo rk) documented as of this encounter Visit Diagnoses Not on filedocumented in this encounter Additional Health Concerns Assessment Noted Time PHQ-9 Depression Total Score: 4 04/20/2015 2:22 PM CDT documented as of this encounter Care Teams Mutuel Teller Relationship Specialty Start Date End Date Amanda Barrios APRN, C.N.P. PCP - General 02/27/17 02/24/18 [address] [place] [phone] documented as of this encounter
--- OUTSIDE RECORDS SUMMARY | 2022-06-23 22:45 | XMS_ITS | Encounter Summary ---
:1970 Author Organization [facility] Address [address] [place] [address] Care Team Providers Name Role Phone Amanda Barrios APRN, C.N.P. Primary Care Provider [phone] Encounter Details Date Type Department Care Team Description 05/16/2017 Hospital Encounter HX [facility] Amanda Barrios, Jakob CHAVEZ, C.N.P. [address] [place], [place] [phone] (Wo rk) Social History [...] More than 4 times per year 06/02/2022 mosque services? Do you belong to any clubs [...] or slept in a halfway (including now)? Sex Assigned at Date Recorded [...] a day. fluticasone Administer 2 sprays 0 01/21/2017 09/0 10/2019 (for_FLONASE) 50 into each nostril as mcg/actuation nasal needed. spray glimepiride Take 1 tablet by mouth 0 12/30/2016 1 11/06/2016 (for_AMARYL) 4 mg daily. tablet ibuprofen (ADVIL) 200 Take 2 tablets by 0 12/07/2 016 05/17/2020 mg tablet mouth as needed. [...] Neurology Preet Landeros M.D . [address] [place] [address] Bria Suh APRN, C.N.P., M.S.N. [address] [place] [phone] 07/25/2022 Appointment Radiology Preet Landeros M.D . [address] [place], [place] [phone] (Wo rk) documented as of this encounter Visit Diagnoses Not on filedocumented in this encounter Additional Health Concerns Assessment Noted Time PHQ-9 Depression Total Score: 4 04/20/2015 2:22 PM CDT documented as of this encounter Care Teams Bioprocess Development Engineer Relationship Specialty Start Date End Date Amanda Barrios APRN, C.N.P. PCP - General 02/27/17 02/24/18 [address] [place] [phone] documented as of this encounter
--- OUTSIDE RECORDS SUMMARY | 2022-06-23 22:45 | XMS_ITS | Encounter Summary ---
:1970 Author Organization [facility] Address [address] [place] [address] Care Team Providers Name Role Phone Atiya Felipe APRN, C.N.P. Primary Care Provider [phone] Encounter Details Date Type Department Care Team Description 04/07/2017 Hospital Encounter HX [facility] FAMILYPRA Atiya Felipe APRN, C.N.P. [address] [place], [place] [phone] (Wo rk) Social History [...] or relatives? How often do you attend moravian or More than 4 times per year 06/02/2022 yazdanism services? Do you belong to any clubs or Yes 06/02/2022 organizations such as moravian groups, unions, fraternal or athletic groups, or [...] Sign Reading Time Taken Comments Blood Pressure 120/80 04/07/2017 1:22 PM CDT Pulse 64 04/07/2017 1:22 PM CDT Temperature - - Respiratory Rate 20 04/07/2017 1:22 PM CDT Oxygen Saturation - - Inhaled Oxygen Concentration - - Weight 161 kg (355 lb 14.9 oz) 04/07/2017 1:22 PM CDT Height 169 cm (5' 6.54) 04/07/2017 1:22 PM CDT Body Mass Index 56.53 04/07/2017 1:22 PM CDT documented in this encounter Medications [...] tablet daily. documented as of this encounter Progress Notes Atiya Felipe, BRET, C.N.P. - 04/07/2017 1:52 PM CDT Clinic Full Note CHIEF COMPLAINT/REASON FOR VISIT Follow up Diabetic HISTORY OF PRESENT ILLNESS Cali is here for diabetes recheck. He states blood sugars have been elevated for the last month. He brought his glucometer in for review. His average blood sugar has been 200-225. States he has beenworking too many hours to exercise. His weight has gone up. He ran out of [employer] so has only been testing once daily. Blood pressure is well controlled on Diovan. Lipids are stable on atorvastatin without adverse effects. MEDICATIONS aspirin, 81 mg, PO, Daily atorvastatin 10 mg oral tablet, 10 mg, 1 tab(s), PO, Bedtime, 3 refills Calcium 600+D, PO, 2xDay Cortisporin Otic suspension, 2 drop(s), Ear(Left), 4xDay, 0 refills Diovan 80 mg oral tablet, 80 mg, 1 tab(s), PO, Daily, 3 refills fluticasone 50 mcg/inh nasal spray, 2 spray(s), Needs appointment, Nostrils(Both), Daily, 3 refills glimepiride 4 mg oral tablet, 4 mg, 1 tab(s), PO, Daily, 3 refills Lantus Solostar Pen 100 units/mL subcutaneous solution, 35 units, Subcut., Bedtime, 0 refills multivitamin, Daily NovoLOG FlexPen 100 units/mL subcutaneous solution, 30 units, E11.65; Z79.4Needs appointment, Subcut., Daily Supper, 0 refills Zegerid OTC, 1 cap(s), PO, Daily Zyrtec 10 mg oral tablet, PRN ALLERGIES lisinopril (Cough) PAST MEDICAL HISTORY Chronic Body mass index (BMI) 50-59.9 , adult Carcinoma Renal Cell L Diabetes mellitus type II DM2 Uncontrolled Eczema NOS Hernia, ventral, unspecified Hyperlipidemia Mixed Hypertension (HTN) Essential 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 (05/29/2011), Appendectomy (10/30/1984). 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 SYSTEMS REVIEW Positive for that mentioned in the History of Present Illness and Past Medical History. All other systems were reviewed and were negative. VITAL SIGNS T: 36.5 ??C (Core) HR: 64 RR: 20 BP: 120 / 80 HT: 169 cm WT: 161.45 kg BMI: 56.53 PHYSICAL EXAMINATION GENERAL: Well-developed, well-nourished, in no acute distress. SKIN: Warm and dry. HEENT: TMs clear. Throat clear. NECK: Supple. No lymphadenopathy or thyromegaly. HEART: Regular rate and rhythm. S1, S2. No murmur. LUNGS: Clear to auscultation. No wheezes or rales. ABDOMEN: Soft, nontender. No hepatosplenomegaly. EXTREMITIES: Warm, dry. No peripheral edema. IMPRESSION/REPORT/PLAN DM2 Uncontrolled Worsening, increase Lantus insulin to 40 units at bedtime. Increase NovoLog insulin to 32 units before supper. Increase glimepiride to 8 mg before breakfast. Test blood sugars 3 times daily. Goal for fasting blood sugar is less than 100-110. Goal for 2 hour postprandial blood sugar is less than 160. Work on diet and exercise with weight loss. Schedule dilated eye exam. Recheck A1c in May. Ordered: OV Est Pt Level 4 - 15742 - 25 min Hyperlipidemia Mixed Stable on atorvastatin without adverse effects. Ordered: OV Est Pt Level 4 - 65351 - 25 min Hypertension (HTN) Essential Benign Well controlled, no change in medication. Ordered: OV Est Pt Level 4 - 63719 - 25 min Halfway Use Of Insulin Active Ordered: OV Est Pt Level 4 - 38613 - 25 min Orders: glimepiride, 8 mg = 2 tab(s), PO, Daily, # 60 tab(s), 3 Refill(s), Maintenance, [id number] insulin aspart, 32 units, Subcut., Daily Supper, E11.65; Z79.4, # 30 mL, 0 Refill(s), Maintenance, [id number], Does not need refill today. insulin glargine, 40 units, Subcut., Bedtime, # 30 mL, 0 Refill(s), Maintenance, [id number], Does not need refill today. AST Basic Metabolic Panel, Fasting* Hemoglobin A1c Lipid Panel* Return Visit Fam Med 30 Min UR Microalbumin Random Electronically Signed By: ATIYA FELIPE APRN, CNP On: 04/07/2017 01:56 PM Source: [facility] POWERCHART Document Id: [id number] documented in this encounter Nursing Notes Atiya Felipe APRN, C.N.P. - 04/07/2017 1:41 PM CDT Ambulatory Patient Education The following Patient Education Materials have been given to the patient: Patient Education Materials: Custom DIABETIC DIET Custom Diet: Diabetes Food is an important tool that you can use to control diabetes and sta y healthy. Eating well-balanced meals in the correct amounts will help you control your blood glucose levels and prevent low blood sugar reactions. It will also help you reduce the health risks of diabetes. A registered dietitian (RD) will explain the doug kayla diet and help you plan meals and snacks that are healthy to eat. If you have any questions, do not hesitate to call the dietitian for advice. Guidelines For Success: ?? Consult with your doctor before starting a diabetes diet or weight loss program. If you have not yet consulted a dietitian, ask your doctor for a referral. ?? Select foods from the six food groups. Your dietitian will advise you on food choices within eachgroup, serving sizes and how many servings you can have at each meal. ?? Grains, beans and starchy vegetables ?? Vegetables ?? Fruit ?? Milk or yogurt ?? Meats ?? Fats, sweets and alcohol (only a small amount from this group) ?? Monitor your blood sugar levels as requested by your doctor. Take any medicine as prescribed by your doctor. ?? Learn to read nutrition labels and select appropriate portion sizes. ?? Eat only the amount of food in your meal plan. Eat about the sa me amount of food at regular times each day. Do not skip meals. Eat meals 4 to 5 hours apart, with snacks in between. ?? Limit alcohol. It raises blood sugar levels. Drink water or calorie-free diet drinks that use safe sweeteners. ?? Eat less fat to help lo wer your risk of heart disease. Use non-fat or low- fat dairy products andlean meats. Avoid fried foods. Use cooking oils that are unsaturated. ?? Talk to your merchandise carrier about safe sugar substitutes. ?? Avoid added salt. It can contribute to high blood pr essure, which can cause heart disease. People with diabetes already have a risk of high blood pressure and heart disease. ?? Maintain a healthy weight. If you need to lose weight, cut down on your portion sizes. But do notskip meals. Exercise is an importa nt part of any weight management program. Talk to your doctor about an exercise program that is right for you. ?? For more information about the best diet plan for you, talk with a registered dietitian (RD). To obtain a referral to an RD in your area, contact: ?? Academy of Nutrition and Dietetics www.eatright.org ?? The [employer] 341-532-4428 www.diabetes.org ?? [facility], [address] [place] [address], [place] [address]. All rights reserved. This information is not intended as a substitute for professional medical care. Always follow your healthcare professional's instructions. This document has images extracted. Please consider using [employer] for all your patient education needs. Source: [facility] [employer] Document Id: [id number] documented in this encounter Miscellaneous Notes Miscellaneous - Alber Hernandez R.N. - 06/16/2017 3:48 PM CDT Med Management Document Contains Addenda Addendum by ATIYA FELIPE APRN, CNP on June 18, 2017 11:15:24 CDT From: ATIYA FELIPE APRN, CNP Sent: 06/18/2017 11:15:24 CDT Subject: RE:Med Management Approved Order:insulin glargine (Lantus Solostar Pen 100 units/mL subcutaneous solution) 40 units Subcut. Bedtime Qty: 30 mL Refills: 0 Substitutions Allowed Route To Pharmacy - [facility] [id number] [facility] Signed by ATIYA FELIPE APRN, CNP 06/18/2017 11:15:19 From: ALBER HERNANDEZ RN ([facility] Publicist) To: ATIYA FELIPE APRN, CNP; Sent: 06/16/2017 15:48:31 CDT Subject: Med Management On hold pending signature Order:insulin glargine (Lantus Solostar Pen 100 units/mL subcutaneous solution) 40 units Subcut. Bedtime Qty: 30 mL Refills: 0 Substitutions Allowed Route To Pharmacy - [facility] [id number] [facility] Source: [facility] [employer] Document Id: [id number] Telephone Encounter - Nenita Sun M.D. - 05/16/2017 12:00 AM CDT [id number] Hemoglobin A1c is 10.6. This suggests diabetes is uncontrolled. Additional medication and treatment options should be considered. Follow up in the clinic advised. Card is sent to patient in regard to this issue. Nenita Sun M.D./vicente Electronically Signed By: NENITA SUN MD On: 05/22/2017 08:21 AM Modified by and Electronically Signed by: NENITA SUN MD On: 05/22/2017 08:21 AM Source: [facility] [email or web address] Document Id: [id number] Miscellaneous - Atiya Felipe APRN, C.N.P. - 04/07/2017 1:41 PM CDT Ambulatory Patient Summary [address] [id number] Visit Information Name: CALI MURPHY [facility] Number: [id number] Current Date: 04/07/2017 13:41:19 Physicians Attending Provider: ATIYA FELIPE APRN WIRE SETTER Primary Care Provider: ATIYA FELIPE APRN [facility] CALI LU has been given the following list of [...] oral tablet) as needed for Allergy symptoms fluticasone nasal (fluticasone 50 mcg/inh nasal spray) 2 [place](s), Nostrils(Both), once a day Needs appointment glimepiride (glimepiride 4 mg oral tablet) 2 Tablet(s), Oral, once a day This is a CHANGE [facility] insulin aspart (NovoLOG FlexPen 100 units/mL subcutaneous solution) 32 units, Subcutaneous, Daily Supper E11.65; Z79.4 This is a CHANGE [facility] , insulin glargine (Lantus Solostar Pen 100 units/mL subcutaneous solution) 40 units, Subcutaneous, once a day (at bedtime) This is a CHANGE [facility] multivitamin (multivitamin) once a day neomycin/polymyxin B/hydrocortisone otic (Cortisporin Otic suspension) 2 Drops, Ear(Left), four times a day omeprazole-sodium bicarbonate (Zegerid OTC) 1 cap, Oral, once a day valsartan (Diovan 80 mg oral tablet) 1 Tablet(s), Oral, once a day Stop Taking the Following Medications: Medication list as of 04-07-17 13:41 Attention: If you have any medications at [...] of emergency. 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 Hyperlipidemia Mixed Active Hypertension (HTN) Essential Benign Active Your Upcoming Appointments Date Time Location Provider No Appointments found Attention: Contact your local Clinic if further appointment detail needed. Diet: Diabetes Food is an important tool that you can use to control diabetes and sta y healthy. Eating well-balanced meals in the correct amounts will help you control your blood glucose levels and prevent low blood sugar reactions. It will also help you reduce the health risks of diabetes. A registered dietitian (SRINIVASA) will explain the doug [employer] (TMG) diet and help you plan meals and snacks that are healthy to eat. If you have any questions, do not hesitate to call the dietitian for advice. Guidelines For Success: ?? Consult with your doctor before starting a diabetes diet or weight loss program. If you have not yet consulted a dietitian, ask your doctor for a referral. ?? Select foods from the six food groups. Your dietitian will advise you on food choices within eachgroup, serving sizes and how many servings you can have at each meal. ?? Grains, beans and starchy vegetables ?? Vegetables ?? Fruit ?? Milk or yogurt ?? Meats ?? Fats, sweets and alcohol (only a small amount from this group) ?? Monitor your blood sugar levels as requested by your doctor. Take any medicine as prescribed by your doctor. ?? Learn to read nutrition labels and select appropriate portion sizes. ?? Eat only the amount of food in your meal plan. Eat about the sa me amount of food at regular times each day. Do not skip meals. Eat meals 4 to 5 hours apart, with snacks in between. ?? Limit alcohol. It raises blood sugar levels. Drink water or calorie-free diet drinks that use safe sweeteners. ?? Eat less fat to help lo wer your risk of heart disease. Use non-fat or low- fat dairy products andlean meats. Avoid fried foods. Use cooking oils that are unsaturated. ?? Talk to your merchandise carrier about safe sugar substitutes. ?? Avoid added salt. It can contribute to high blood pr essure, which can cause heart disease. People with diabetes already have a risk of high blood pressure and heart disease. ?? Maintain a healthy weight. If you need to lose weight, cut down on your portion sizes. But do notskip meals. Exercise is an importa nt part of any weight management program. Talk to your doctor about an exercise program that is right for you. ?? For more information about the best diet plan for you, talk with a registered dietitian (RD). To obtain a referral to an RD in your area, contact: ?? Academy of Nutrition and Dietetics www.eatright.org ?? The [employer] Diabetes [employer] [phone] www.diabetes.org ?? [phone] [place] [address]. All rights reserved. This information is not [...] if you dont have one. Go to [email or web address] and click on Create Your Account. Then, follow the directions to complete the online form. Youll be asked for your [facility] number which you can find at the top of this document. Your Goals/Additional instructions: This document has images extracted. Please consider using [employer] for all your patient education needs. Source: [facility] POWERCHART Document Id: [id number] Miscellaneous - Atiya Felipe APRN, C.N.P. - 04/07/2017 1:41 PM CDT Ambulatory Discharge Medication List [address] [id number] Visit Information Name: CALI MURPHY [facility] Number: [id number] Current Date: 04/07/2017 13:41:16 Attending Provider: ATIYA FELIPE APRN WIRE SETTER Primary Care Provider: ATIYA FELIPE APRN WIRE SETTER CALI MURPHY has been given the following list of [...] oral tablet) as needed for Allergy symptoms fluticasone nasal (fluticasone 50 mcg/inh nasal spray) 2 [place](s), Nostrils(Both), once a day Needs appointment glimepiride (glimepiride 4 mg oral tablet) 2 Tablet(s), Oral, once a day This is a CHANGE [facility] , insulin aspart (NovoLOG FlexPen 100 units/mL subcutaneous solution) 32 units, Subcutaneous, Daily Supper E11.65; Z79.4 This is a CHANGE [facility] , insulin glargine (Lantus Solostar Pen 100 units/mL subcutaneous solution) 40 units, Subcutaneous, once a day (at bedtime) This is a CHANGE [facility] , multivitamin (multivitamin) once a day neomycin/polymyxin B/hydrocortisone otic (Cortisporin Otic suspension) 2 Drops, Ear(Left), four times a day omeprazole-sodium bicarbonate (Zegerid OTC) 1 cap, Oral, once a day valsartan (Diovan 80 mg oral tablet) 1 Tablet(s), Oral, once a day Stop Taking the Following Medications: Medication list as of 04-07-17 13:41 Attention: If you have any medications at [...] Signed By: ATIYA FELIPE APRN, CNP Signed On:07-APR-2017 13:41:00 Additional Information: Source: [facility] POWERCHART Document Id: [id number] Miscellaneous - Martinez Fishman C.M.A. - 04/07/2017 1:22 PM CDT Adult Wind Farm Support Specialist Intake/History Adult Wind Farm Support Specialist Intake/History Entered On: 04/07/2017 13:26 CDT Performed On: 04/07/2017 13:22 CDT by MARTINEZ FISHMAN [facility] Intake Chief Complaint : Follow up Diabetic Temperature Core : 36.5 DegC(Converted to: 97.7 DegF) Peripheral Pulse Rate : 64 /min Respiratory Rate : 20 /min Heart Rhythm : Regular Systolic Blood Pressure : 120 mmHg Diastolic Blood Pressure : 80 mmHg NIBP Mean : 93 mmHg BP Location : Right upper extremity Blood Pressure Cuff Size : Large Height : 169 cm(Converted to: 5 ft 7 inch(es), 67 inch(es)) Actual Weight : 161.45 kg(Converted to: 355 lb 15 oz) Weight Source : Standing scale Dosing Weight Clinic : 161.45 kg Clinic BSA : 2.75 Body Mass Index : 56.53 kg/m2 MARTINEZ FISHMAN [facility] - 04/07/2017 13:22 CDT General Info Information Given By : Patient Preferred Communication Mode : Verbal Languages : Gibraltarian Is Patient Female and 13-50 no hysterectomy : No MARTINEZ FISHMAN [facility] - 04/07/2017 13:22 CDT Subjective Pain Symptoms : No MARTINEZ FISHMAN [facility] - 04/07/2017 13:22 CDT Dependent Habits Exposure to Tobacco Smoke : Other: Quit fall Smoking Status : Former smoker Tobacco 2A : Yes Tobacco Use/Currently Using : No Tobacco Use/Last 30 Days : No Tobacco Use/Last 12 months : No Tobacco Last Use/Year : 2013 MARTINEZ FISHMAN [facility] - 04/07/2017 13:22 CDT Caffeine Use Grid Caffeine Use : Current Type : Chocolate, Coffee, Soft drinks, Tea Frequency : Daily MARTINEZ FISHMAN [facility] - 04/07/2017 13:22 CDT Recreational Drug Use Grid Drug Use : None MARTINEZ FISHMAN JUNIOR ACCOUNT EXECUTIVE - 04/07/2017 13:22 CDT Source: [facility] POWERCHART Document Id: [id number]!41 documented in this encounter Plan of Treatment Upcoming Encounters Date Type Specialty Care Team Description 06/26/2022 Appointment Neurology Preet Landeros M.D . [address] [place] [phone] Bria Suh APRN, C.N.P., M.S.N. [address] [place] [phone] 07/25/2022 Appointment Radiology Preet Landeros M.D . [address] [place] [phone] (Wo rk) documented as of this encounter Visit Diagnoses Not on filedocumented in this encounter Additional Health Concerns Assessment Noted Time PHQ-9 Depression Total Score: 4 04/20/2015 2:22 PM CDT documented as of this encounter Care Teams Employment Services Director Relationship Specialty Start Date End Date Atiya Felipe APRN, C.N.P. PCP - General 02/27/17 02/24/18 [address] [place] [phone] documented as of this encounter
--- OUTSIDE RECORDS SUMMARY | 2022-06-23 22:45 | XMS_ITS | Encounter Summary ---
:1970 Author Organization [facility] Address [address] [place] [address] Care Team Providers Name Role Phone Atiya Barrios APRN C.N.PBon Primary Care Provider [phone] Encounter Details Date Type Department Care Team Description 03/14/2017 Hospital Encounter HX [facility] FAMILYPRA Arnulfo Barriga P.ALarry [address] [place] [phone] (Wo rk) Social History Tobacco Use Types [...] Sign Reading Time Taken Comments Blood Pressure 128/68 03/14/2017 12:34 PM CDT Pulse 72 03/14/2017 12:34 PM CDT Temperature - - Respiratory Rate 14 03/14/2017 12:34 PM CDT Oxygen Saturation - - Inhaled Oxygen Concentration - - Weight 160 kg (352 lb 11.8 oz) 03/14/2017 12:34 PM CDT Height 169 cm (5' 6.54) 03/14/2017 12:34 PM CDT Body Mass Index 56.02 03/14/2017 12:34 PM CDT documented in this encounter Medications [...] day. fluticasone Administer 2 sprays 0 01/21/2017 0910/2019 (for_FLONASE) 50 into each nostril as mcg/actuation nasal needed. spray glimepiride Take 1 tablet by mouth 0 12/30/2016 1 11/06/2016 (for_AMARYL) 4 mg daily. tablet ibuprofen (ADVIL) 200 Take 2 tablets by 0 016 05/17/2020 mg tablet mouth as needed. multivitamin capsule daily. 0 03/09/201001/13 valsartan (DIOVAN) 80 Take 1 tablet by mouth 0 09/18/2017 mg tablet daily. documented as of this encounter Progress Notes Can Barriga P.A.-C. - 03/14/2017 12:11 PM CDT [id number] CHIEF COMPLAINT/REASON FOR VISIT Followup of his diabetes mellitus. HISTORY OF PRESENT ILLNESS Cali is a 47-year-old male who has multiple medical comorbidities. He has a longstanding history of diabetes that has been poorly controlled and it seems to be progressively worsening. He came in at the beginning of this month and had blood work drawn. His hemoglobin A1c is 10.7. It has progressively worsened over the last year, so he follows with Atiya. He has been on insulin but due to some insurance changes, he has had to use different insulin over the last year. He currently takes glimepiride4 mg a day. He was on long-acting insulin because Lantus was not covered, but he was using 30 units a day and then he is on insulin NovoLog and he uses 60 units of this at suppertime. He is supposed jesica using 30, but says he feels as though his mouth is a little dry, so he was using up to 60 mg. He has not had any low sugar reactions that he knows of. He says he has not been getting the right lancets and has not been checking his blood sugars, so he really does not know what his blood sugars have been. His hemoglobin A1c is 10.7. He also has some flakiness of his left ear canal and flakiness of his elbows and he wants me to look at that today as well. VITAL SIGNS Noted in the EMR. PHYSICAL EXAMINATION GENERAL: He appears in no acute distress. He is morbidly obese with a body mass index of 56. ENT: His ear canals are flaky, particularly on the left side. His tympanic membranes are not erythematous. HEART: Regular rate and rhythm. No murmurs. LUNGS: Clear to auscultation. EXTREMITIES: I did do his foot exam. Monofilament exam was intact. Dorsalis pedis pulses palpable. IMPRESSION/REPORT/PLAN 1. Diabetes mellitus. This is very poorly controlled. For now I am going to continue him on his glimepiride at 4 mg a day. I am going to continue him on the NovoLog. I renewed it at 30 units, although he says he has been using more than that. I am going to switch him back to the Lantus based on a new insurance change. It looks like this might be better covered. I am going to have him use 35 units of Lantus at bedtime. I want him to get a new machine so he is able to get his readings and keep track of them over the next week or so. I am going to have him come back in to see Atiya at that point withhis readings to make further adjustments as necessary. I encouraged him to do it at least twice daily . He is in agreement with this plan and will follow up as scheduled. If there are questions or problems the meantime, he will let us know. 2. Seborrheic otitis. I am going to give some Cortisporin Otic suspension for his left ear canal to help clear this up. If there are questions or problems, he will let us know. Total time spent today with Cali was 25 minutes of which 20 of it was in [id number] coordinationof care and counseling. Can Barriga P.A.-C./vicente Electronically Signed By: CAN BARRIGA PA-C On: 03/19/2017 12:10 PM Source: [facility] MHSDOLBEYNONRADSYS Document Id: [id number] documented in this encounter Miscellaneous Notes Miscellaneous - RoCan ortiz P.A.-C. - 03/14/2017 1:13 PM CDT Ambulatory Patient Summary [address] [id number] Visit Information Name: CALI MURPHY [facility] Number: [id number] Current Date: 03/14/2017 13:13:24 Physicians Attending Provider: CAN BARRIGA PA-C Primary Care Provider: ATIYA BARRIOS APRN [facility] CALI MURPHY has been given the following [...] Tablet(s), Oral, once a day (at bedtime) Routed to [facility] , calcium-vitamin D (Calcium 600+D) Oral, two times a day cetirizine (Zyrtec 10 mg oral tablet) as needed for Allergy symptoms fluticasone nasal (fluticasone 50 mcg/inh nasal spray) 2 [place](s), Nostrils(Both), once a day Needs appointment Routed to [facility] , glimepiride (glimepiride 4 mg oral tablet) 1 Tablet(s), Oral, once a day Routed to [facility] , insulin aspart (NovoLOG FlexPen 100 units/mL subcutaneous solution) 30 units, Subcutaneous, Daily Supper E11.65; Z79.4 Needs appointment Routed to [facility] , insulin glargine (Lantus Solostar Pen 100 units/mL subcutaneous solution) 35 units, Subcutaneous, once a day (at bedtime) This is a CHANGE Routed to [facility] , multivitamin (multivitamin) once a day neomycin/polymyxin B/hydrocortisone otic (Cortisporin Otic suspension) 2 Drops, Ear(Left), four times a day New Routed to [facility] , omeprazole-sodium bicarbonate (Zegerid OTC) 1 cap, Oral, once a day valsartan (Diovan 80 mg oral tablet) 1 Tablet(s), Oral, once a day Routed to [facility] , Stop Taking the Following Medications: Medication list as of 03-14-17 13:13 Attention: If you have any medications at home that are not on this list, DO NOT take them until youcontact your provider for clarification. Give a copy of your medication list to your primary care provider. Update your medication list any time medications or doses are changed and carry your medication list at all times in case of emergency. Electronically Signed By: CAN BARRIGA PA-C Signed On:14-MAR-2017 13:13:18 Your Allergies & Intolerances Substance Reaction Symptoms Category Comments lisinopril Cough Drug Your Problem List Problem Status Onset Comments Morbid Obesity (BMI > 40) (V85.4) Active Hernia, ventral, unspecified Active Psoriasis Active 01/26/2013 Hypertension (HTN) NOS Active Eczema NOS Active Hyperlipidemia NOS Active Social Services Aide Use Of Insulin Active Active DM2 Uncontrolled Active Carcinoma Renal Cell L Active 11/02/2015 11/08/15 Per MRI [place], [place] Body mass index (BMI) 50-59.9 , adult Active 03/14/17 Rule activated problem due to BMI 50-59 postedon 03/14 at 12:34 CDT. Your Upcoming Appointments Date Time Location Provider No Appointments found Attention: Contact your local Clinic if further appointment detail needed. Consider Using Patient Online Services Patient Online [...] if you dont have one. Go to [email or web address] and click on Create Your Account. Then, follow the directions to complete the online form. Youll be asked for your [facility] number which you can find at the top of this document. Your Goals/Additional instructions: Source: [facility] POWERCHART Document Id: [id number] Miscellaneous - Can Barriga P.A.-C. - 03/14/2017 1:13 PM CDT Ambulatory Discharge Medication List [address] [id number] Visit Information Name: CALI MURPHY [facility] Number: [id number] Current Date: 03/14/2017 13:13:21 Attending Provider: CAN BARRIGA PA-C Primary Care Provider: ATIYA BARRIOS APRN [employer] CALI MURPHY has been given the following [...] Tablet(s), Oral, once a day (at bedtime) Routed to [facility] , calcium-vitamin D (Calcium 600+D) Oral, two times a day cetirizine (Zyrtec 10 mg oral tablet) as needed for Allergy symptoms fluticasone nasal (fluticasone 50 mcg/inh nasal spray) 2 [place](s), Nostrils(Both), once a day Needs appointment Routed to [facility] , glimepiride (glimepiride 4 mg oral tablet) 1 Tablet(s), Oral, once a day Routed to [facility] , insulin aspart (NovoLOG FlexPen 100 units/mL subcutaneous solution) 30 units, Subcutaneous, Daily Supper E11.65; Z79.4 Needs appointment Routed to [facility] , insulin glargine (Lantus Solostar Pen 100 units/mL subcutaneous solution) 35 units, Subcutaneous, once a day (at bedtime) This is a CHANGE Routed to [facility] , multivitamin (multivitamin) once a day neomycin/polymyxin B/hydrocortisone otic (Cortisporin Otic suspension) 2 Drops, Ear(Left), four times a day New Routed to [facility] , omeprazole-sodium bicarbonate (Zegerid OTC) 1 cap, Oral, once a day valsartan (Diovan 80 mg oral tablet) 1 Tablet(s), Oral, once a day Routed to [facility] , Stop Taking the Following Medications: Medication list as of 03-14-17 13:13 Attention: If you have any medications at home that are not on this list, DO NOT take them until youcontact your provider for clarification. Give a copy of your medication list to your primary care provider. Update your medication list any time medications or doses are changed and carry your medication list at all times in case of emergency. Electronically Signed By: CAN BARRIGA PA-C Signed On:14-MAR-2017 13:13:18 Additional Information: Source: [facility] [employer] Document Id: [id number] Mary Jane - Can Barriga P.A.-C. - 03/14/2017 1:06 PM CDT Quality Measures Quality Measures Entered On: 03/14/2017 13:08 CDT Performed On: 03/14/2017 13:06 CDT by CAN BARRIGA PA-C Diabetes Date of Last Diabetes Education : 03/14/2017 CDT CAN BARRIGA PA-C - 03/14/2017 13:06 CDT Foot Exam Grid Left foot exam Right foot exam 10 gm Monofilament Sensation Check : Intact Intact CAN BARRIGA PA-C - 03/14/2017 13:06 CDT CAN BARRIGA PA-C - 03/14/2017 13:06 CDT [facility] Document Id: [id number] CDT!8 Mary Jane - Aly Rees HeatherPBonNBon - 03/14/2017 12:37 PM CDT Health Assessment Health Assessment Entered On: 03/14/2017 12:38 CDT Performed On: 03/14/2017 12:37 CDT by ALY REES LPN Health Assessment Complete Health Assessment Complete or Modified : Annual Health Assessment Annual Health Assessment Completed : Yes ALY REES LPN - 03/14/2017 12:37 CDT Nutrition Nutrition Risk Factors by History Adult : None ALY REES LPN - 03/14/2017 12:37 CDT Functional Current Daily Living Assistance : None ALY REES LPN - 03/14/2017 12:37 CDT Dependent Habits Exposure to Tobacco Smoke : Other: Quit fall Smoking Status : Former smoker Tobacco 2A : Yes Tobacco Use/Currently Using : No Tobacco Use/Last 30 Days : No Tobacco Use/Last 12 months : No Tobacco Last Use/Year : 2013 Alcohol Use : No ALY REES LPN - 03/14/2017 12:37 CDT Caffeine Use Grid Caffeine Use : Current Type : Chocolate, Coffee, Soft drinks, Tea Frequency : Daily ALY REES LPN - 03/14/2017 12:37 CDT Recreational Drug Use Grid Drug Use : None ALY REES LPN - 03/14/2017 12:37 CDT Psychosocial Domestic Abuse Concerns : None Behavioral Health Screen/Safety Assmt : No Christian Preference : ALY Villagran LPN - 03/14/2017 12:37 CDT Advance Directive Advanced Directives : No Advance Directive Additional Information : No ALY REES LPN - 03/14/2017 12:37 CDT Educ Needs Learning Style Preference Adult Grid Patient : None Family : None ALY REES LPN - 03/14/2017 12:37 CDT [facility] Document Id: [id number] CDT!36 Miscellaneous - Aly Rees L.P.NBon - 03/14/2017 12:34 PM CDT Adult Medical Transcription Editor Intake/History Adult Medical Transcription Editor Intake/History Entered On: 03/14/2017 12:37 CDT Performed On: 03/14/2017 12:34 CDT by ALY REES LPN Intake Chief Complaint : DM check Leg cramps and needs refills Temperature Core : 36.5 DegC(Converted to: 97.7 DegF) Peripheral Pulse Rate : 72 /min Respiratory Rate : 14 /min Systolic Blood Pressure : 128 mmHg Diastolic Blood Pressure : 68 mmHg NIBP Mean : 88 mmHg BP Location : Right upper extremity Blood Pressure Cuff Size : Large Height : 169 cm(Converted to: 5 ft 7 inch(es), 67 inch(es)) Actual Weight : 160 kg(Converted to: 352 lb 12 oz) Weight Source : Standing scale Dosing Weight Clinic : 160 kg Clinic BSA : 2.74 Body Mass Index : 56.02 kg/m2 ALY REES LPN - 03/14/2017 12:34 CDT General Info Information Given By : Patient Languages : Mongolian Is Patient Female and 13-50 no hysterectomy : No ALY REES LPN - 03/14/2017 12:34 CDT Subjective Pain Symptoms : Yes ALY REES LPN - 03/14/2017 12:34 CDT Pain Scale Pain Scale Verbal 0-10 : Open ALY REES LPN - 03/14/2017 12:34 CDT Pain Pain Assessment Grid Pain 1 Location : Other: leg cramps ALY REES LPN - 03/14/2017 12:34 CDT Dependent Habits Exposure to Tobacco Smoke : Other: Quit fall Smoking Status : Former smoker Tobacco 2A : Yes Tobacco Use/Currently Using : No Tobacco Use/Last 30 Days : No Tobacco Use/Last 12 months : No Tobacco Last Use/Year : 2013 ALY REES LPN - 03/14/2017 12:34 CDT Caffeine Use Grid Caffeine Use : Current Type : Chocolate, Coffee, Soft drinks, Tea Frequency : Daily ALY REES LPN - 03/14/2017 12:34 CDT Recreational Drug Use Grid Drug Use : None ALY REES LPN 03/14/2017 12:34 CDT [facility]OWER[facility] Document Id: [id number] CDT!45 documented in this encounter Plan of Treatment Upcoming Encounters Date Type Specialty Care Team Description 06/26/2022 Appointment Neurology Preet Landeros M.D . [address] [place] [phone] Bria Suh APRN, C.N.P., M.S.N. [address] [place] [phone] 07/25/2022 Appointment Radiology Preet Landeros M.D . [address] [place] [phone] (Wo rk) documented as of this encounter Visit Diagnoses Not on filedocumented in this encounter Additional Health Concerns Assessment Noted Time PHQ-9 Depression Total Score: 4 04/20/2015 2:22 PM CDT documented as of this encounter Care Teams Strap Machine Operator Automatic Relationship Specialty Start Date End Date Atiya Barrios APRN, C.N.P. PCP - General 02/27/17 02/24/18 [address] [place] [phone] documented as of this encounter
--- OUTSIDE RECORDS SUMMARY | 2022-06-23 22:45 | XMS_ITS | Encounter Summary ---
:1970 Author Organization [facility] Address [address] [place] [address] Care Team Providers Name Role Phone Unavailable Primary Care Provider Unavailable Encounter Details Date Type Department Care Team Description 02/13/2017 Hospital Encounter HX [facility] Amanda Barrios, Jakob PRLiss, C.N.P. [address] [phone] (Wo rk) Social History Tobacco [...] - - Height 169 cm (5' 6.54) 02/13/2017 9:56 AM CDT Body Mass Index - - [...] tablet daily. documented as of this encounter Nursing Notes Trei Weaver L.P.N. - 02/14/2017 2:32 PM CDT lab results 02/13/17 Results card sent, Per Dr. Sun. Electronically Signed By: TERI WEAVER LPN On: 02/14/2017 02:33 PM [facility] POWERCHART Document Id: [id number] documented in this encounter Plan of Treatment Upcoming Encounters Date Type Specialty Care Team Description 06/26/2022 Appointment Neurology Preet Landeros M.D . [address] [place] [phone] Bria Suh APRN, C.N.P., M.S.N. [address] [place] [phone] 07/25/2022 Appointment Radiology Preet Landeros M.D . [address] [place] [phone] (Wo rk) documented as of this encounter Procedures Procedure Name Priority Date/Time Associated Comments Diagnosis ALBUMIN, RANDOM, U Routine 02/13/2017 10:13 Resul ts for this AM CDT procedure are i n the results section. LIPID PANEL, S Routine 02/13/2017 10:11 Results f or this AM CDT procedure are i n the results section. ASPARTATE Routine 02/13/2017 10:11 Results for this AMINOTRANSFERASE (AST), AM CDT proc edure are in S/P the results section. HEMOGLOBIN A1C, B Routine 02/13/2017 10:11 Result s for this AM CDT procedure are i n the results section. BASIC METABOLIC PANEL, Routine 02/13/2017 10:11 R esults for this S/P AM CDT procedure are i n the results section. documented in this encounter Results (ABNORMAL) Microalbumin, Random, Urine (02/13/2017 10:13 AM CDT) P athologist Signature Creatinine, 111 40 - 278 POWERCHART Random, U MGDL HXU Albumin % 34.6 MGL POWERCHART Albumin/Creatin 31 (H) 0 - 17 MGG POWERCHART ine Ratio Specimen (Source) Anatomical Collection Method Collection Time Re ceived Time Location / / Volume Laterality Urine 02/13/2017 10:13 AM CDT Salo Mendez APRNNBonPBon LAB URINE ORDERABLES Performing Organization Address City/State/ZIP Code Phon e Number POWERCHART (ABNORMAL) Lipid Panel (02/13/2017 10:11 AM CDT) P athologist Signature Cholesterol, 178 <=199 MGDL POWERCHART Total Comment: 2014 National Lipid Association recommen dations for Total Cholesterol in adults ages 18 and up: Desirable <200 mg/dL Borderline high 200-239 mg/dL High 240 mg/dL 2014 National Lipid Association recommen dations for Total Cholesterol in children ages 2 to 17. Acceptable <170 mg/dL Borderline High 170-199 mg/dL High 200 mg/dL HX HDL 39 (L) >=40 MGDL POWERCHART Comment: 2014 National Lipid Association recommen dations for HDL-C in adults ages 18 and up: Low <40 mg/dL (Men) Low <50 mg/dL (Women) 2014 National Lipid Association recommen dations for HDL-C in children ages 2 to 17. Low <40 mg/dL Borderline Low 40-45 mg/dL Acceptable >45 mg/dL Triglycerides 278 (H) <=149 MGDL POWERCHART Comment: 2014 National Lipid Association recommen dations for Triglycerides in adults ages 18 and up: Normal <150 mg/dL Borderline High 150-199 mg/dL High 200-499 mg/dL Very High 500 mg/dL 2014 National Lipid Association recommen dations for Triglycerides in children ages 2 to 9. Acceptable <75 mg/dL Borderline High 75-99 mg/dL High 100 mg/dL 2014 National Lipid Association recommen dations for Triglycerides in children ages 10 to 17. Acceptable <90 mg/dL Borderline High 90-129 mg/dL High 130 mg/dL Trigs >400mg/dL: Triglycerides >400 mg/ dL. Calculated LDL cholesterol is not valid. Non-HDL cholesterol may be used for risk assessment when triglycerides are >400mg/dL. Calculated LDL 83 <=129 MGDL POWERCHART Comment: 2013 National Lipid Association recommen dations for LDL-C in adults ages 18 and up: Desirable <100 mg/dL Above desirable 100-129 mg/dL Borderline high 130-159 mg/dL High 160-189 mg/dL Very High 190 mg/dL 2013 National Lipid Association recommen dations for LDL-C in children ages 2 to 17. Acceptable <110 mg/dL Borderline High 110-129mg/dL High 130 mg/dL LDL-C >190mg/dL: The markedly elevated LDL level is suggestive of a genetic condition such as familial hypercholesterolemia(FH) or familial defective apolipoprotein B-100 (FDB). Molecular genetic t esting for FH and FDB is available onel [facility]: FH/ADH Genetic Reflex [place] el (test ADHP). Acquired (non-genetic) causes of markedly increased LDL cholesterol include cholestatic liver disease due to the presence of LpX. If a genetic form of hypercholesterolemia is suspected, family studies including biochemical testing fo r lipids (total cholesterol,triglycerides, LDL cholesterol and HDL cholesterol) are recommended. ??Please contact the laboratory at or the on-line test catalog at [employer] for information about how to order these adam ts or to speak with a genetic counselor. Further interpretation would require clinical information. Total Cholesterol/HDL Ratio 5.00 PO WERCHART HXLDL/HDL 2 POWERCHART Specimen (Source) Anatomical Collection Method Collection Time Re ceived Time Location / / Volume Laterality Blood 02/13/2017 10:11 AM CDT Amanda Barrios APRN, C.N.P. LAB BLOOD ADD-ON Performing Organization Address City/State/ZIP Code Phon e Number POWERCHART (ABNORMAL) Hemoglobin A1c (02/13/2017 10:11 AM CDT) Analysis Performed At Patho logist Time Signature Hemoglobin A1c, 10.7 (H) <=5.6 A1C POWERCHART B Specimen (Source) Anatomical Collection Method Collection Time Re ceived Time Location / / Volume Laterality Blood 02/13/2017 10:11 AM CDT Amanda Barrios APRN C.N.P. LAB BLOOD ADD-ON Performing Organization Address City/State/ZIP Code Phon e Number POWERCHART (ABNORMAL) BMP (Basic Metabolic Panel) (02/13/2017 10:11 AM CDT) P athologist Signature Sodium, S 138 135 - 145 POWERCHART MMOLL Potassium, S 4.7 3.6 - 5.2 POWERCHART MMOLL Chloride, S 96 (L) 98 - 107 POWERCHART MMOLL CO2 Total 30 (H) 22 - 29 POWERCHART MMOLL Comment: Reference ranges have not been established for patients that are <12 months of age. Glucose, Fasting, S 244 (H) 70 - 99 MGDL POWERCH ART BUN (Blood Urea Nitrogen), S 12 8 - 24 MGDL POWERCHART Creatinine 0.93 0.80 - 1.30 MGDL POWERCHART Calcium, Total, S 9.6 8.6 - 10.3 MGDL POWERC CRONIN Anion Gap 12 7 - 15 MMOLL POWERCHART HXeGFR (MDRD) >60 >=60 [id number] POWERCHART eGFR Black/ >60 >=60 [id number] POWERCHART Specimen (Source) Anatomical Collection Method Collection Time Re ceived Time Location / / Volume Laterality Blood 02/13/2017 10:11 AM CDT Amanda Barrios APRN C.N.P. LAB BLOOD ADD-ON Performing Organization Address City/State/ZIP Code Phon e Number POWERCHART AST (Aspartate Aminotransferase) (02/13/2017 10:11 AM CDT) Patholo gist Method Time Signature Aspartate 20 8 - 48 POWERCHART Aminotransferase UNITL (AST), S Specimen (Source) Anatomical Collection Method Collection Time Re ceived Time Location / / Volume Laterality Blood 02/13/2017 10:11 AM CDT Amanda Barrios APRN, C.N.P. LAB BLOOD ADD-ON Performing Organization Address City/State/ZIP Code Phon e Number POWERCHART documented in this encounter Visit Diagnoses Not on filedocumented in this encounter Additional Health Concerns Assessment Noted Time PHQ-9 Depression Total Score: 4 04/20/2015 2:22 PM CDT documented as of this encounter
--- OUTSIDE RECORDS SUMMARY | 2022-06-23 22:45 | XMS_ITS | Encounter Summary ---
:1970 Author Organization [facility] Address [address] [place] [address] Care Team Providers Name Role Phone Amanda Barrios APRN C.N.P. Primary Care Provider [phone] Encounter Details Date Type Department Care Team Description 06/26/2017 Orders Only Department of Family Amanda Barrios Dia betes Mellitus Type 2 Hyperglycemia (HCC); Medicine, [place] BRET, C.N.P. Hyperlipidemia Mixed Clinic, in [facility] [address] [place], [place] [address] [address] [place], [place] [phone] [address] (Work) [phone] Social History Tobacco Use Types Packs/Day Years [...] More than 4 times per year 06/02/2022 church services? Do you belong to any clubs [...] Appointment Neurology Preet Landeros M.D . [address] [place] [phone] Bria Suh APRN, C.N.P., M.S.N. [address] [place] [phone] 07/25/2022 Appointment Radiology Preet Landeros M.D . [address] [place] [address] [phone] (Wo rk) documented as of this encounter Results (ABNORMAL) Microalbumin, Random, Urine (03/20/2018 8:50 AM CDT) Analysis Performed At Patho logist Time Signature Microalbumin 22.8 mg/L 03/20/2018 [facility] 12:24 PM [facility] [place] [facility] Creatinine 102 mg/dL 03/20/2018 [facility] 12:24 PM T [facility] [place] [facility] Albumin/Creatinin 22 (H) <17 mg/g 03/20/2018 [facility] e Ratio 12:24 PM [facility] [place] [facility] Specimen Anatomical Collection Method Collection Time Receive d Time (Source) Location / / Volume Laterality Urine 03/20/2018 8:50 AM 8 CDT 11:14 AM CDT Salo Mendez APRNNBonPBon LAB URINE ORDERABLES Performing Organization Address City/State/ZIP Code Phon e Number [facility] [address] [place] [address] LAB Lipid Panel (03/20/2018 8:49 AM CDT) P athologist Signature Cholesterol, 94 mg/dL 03/20/2018 [facility] Total 11:40 AM CDT [facility] Comment: ----REFERENCE VALUE---- Desirable: < 200 Borderline high: 200 - 239 High: > or = 240 Triglycerides 141 mg/dL 03/20/2018 11:40 AM CDT [facility] [place] [facility] Comment: ----REFERENCE VALUE---- Normal: <150 Borderline high: 150-199 High: 200-499 Very high: > or =500 Cholesterol, HDL, S 41 >=40 mg/dL 03/20/2018 11:40 AM CDT [facility] [place] [facility] Calculated LDL <30 mg/dL 03/20/2018 11:40 AM CDT [facility] [place] [facility] Comment: ----REFERENCE VALUE---- Desirable: <100 Above Desirable: 100-129 Borderline high: 130-159 High: 160-189 Very high: > or =190 Cholesterol, Non-HDL, 53 mg/dL 03/20/2018 11:40 A M CDT [facility] [place] B Comment: ----REFERENCE VALUE---- Desirable: <130 Above Desirable: 130-159 Borderline high: 160-189 High: 190-219 Very high: > or =220 Specimen Anatomical Collection Method Collection Time Receive d Time (Source) Location / / Volume Laterality Blood 03/20/2018 8:49 AM 8 CDT 11:14 AM CDT Salo Mendez APRNN.P. LAB BLOOD ADD-ON Performing Organization Address City/State/ZIP Code Phon e Number [facility] [place] [address] [place] [address] LAB AST (Aspartate Aminotransferase) (03/20/2018 8:49 AM CDT) Patholo gist Method Time Signature Aspartate 17 8 - 48 03/20/2018 [facility] Aminotransferase U/L 11:40 AM [facility] Specimen Anatomical Collection Method Collection Time Receive d Time (Source) Location / / Volume Laterality Blood 03/20/2018 8:49 AM 8 CDT 11:14 AM CDT Amanda Barrios APRN, C.N.P. LAB BLOOD ADD-ON Performing Organization Address City/State/ZIP Code Phon e Number [facility] [employer] [address] [place] [address] LAB (ABNORMAL) BMP (Basic Metabolic Panel) (03/20/2018 8:49 AM CDT) P athologist Signature Potassium, S 4.7 3.6 - 5.2 03/20/2018 [facility] mmol/L 11:40 AM [facility] Sodium, S 140 135 - 145 03/20/2018 [facility] mmol/L 11:40 AM [facility] Chloride, S 102 98 - 107 03/20/2018 [facility] mmol/L 11:40 AM [facility] Bicarbonate, S 31 (H) 22 - 29 03/20/2018 [facility] mmol/L 11:40 AM [facility] [facility] LAB Anion Gap 7 7 - 15 03/20/2018 [facility] 11:40 AM [facility] BUN (Blood Urea 15 8 - 24 03/20/2018 [facility] Nitrogen), S mg/dL 11:40 AM [facility] Creatinine 1.01 0.74 - 03/20/2018 [facility] 1.35 mg/dL 11:40 AM [facility] [employer] [employer] LAB eGFR-Non 88 >=60 03/20/2018 [facility] Black/ mL/min/BSA 11:40 AM [facility]- [place] [place] [facility] Comment: ----ADDITIONAL INFORMATION---- Estimated GFR calculated using the 2009 CKD_EPI creatinine equation. eGFR-Black/ >90 >=60 mL/min/BSA 2017 11:40 [facility] AM CDT [facility] LAB Comment: ----ADDITIONAL INFORMATION---- Estimated GFR calculated using the 2009 CKD_EPI creatinine equation. Calcium, Total, S 9.5 8.6 - 10.0 mg/dL 03/20/2018 11:4 0 AM [facility] Glucose, S 131 70 - 140 mg/dL 03/20/2018 11:40 AM [facility] Specimen Anatomical Collection Method Collection Time Receive d Time (Source) Location / / Volume Laterality Blood 03/20/2018 8:49 AM 8 CDT 11:14 AM CDT Amanda Barrios APRN, C.N.P. LAB BLOOD ADD-ON Performing Organization Address City/State/ZIP Code Phon e Number [facility] [address] [place] [address] LAB documented in this encounter Visit Diagnoses Diagnosis Diabetes Mellitus Type 2 Hyperglycemia ( HCC) Hyperlipidemia Mixed documented in this encounter Additional Health Concerns Assessment Noted Time PHQ-9 Depression Total Score: 4 04/20/2015 2:22 PM CDT documented as of this encounter Care Teams Web Design Intern Relationship Specialty Start Date End Date Amanda Barrios APRN, C.N.P. PCP - General 02/27/17 02/24/[address] [phone] documented as of this encounter
--- OUTSIDE RECORDS SUMMARY | 2022-06-23 22:45 | XMS_ITS | Encounter Summary ---
:1970 Author Organization [facility] Address [address] [place] [address] Care Team Providers Name Role Phone Amanda Barrios APRN C.N.PBon Primary Care Provider [phone] Encounter Details Date Type Department Care Team Description 09/13/2017 Abstract Department of Ophthalmology in Provider, Historical Luli Rubio n [address] [place], [place] [phone] Social History Tobacco Use Types Packs/Day [...] Neurology Preet Landeros M.D . [address] [place] [phone] Bria Suh APRN, C.N.P., M.S.N. [address] [place] [phone] 07/25/2022 Appointment Radiology Preet Landeros M.D . [address] [place], [place] [phone] (Wo rk) documented as of this encounter Visit Diagnoses Not on filedocumented in this encounter Additional Health Concerns Assessment Noted Time PHQ-9 Depression Total Score: 4 04/20/2015 2:22 PM CDT documented as of this encounter Care Teams Public Policy Coordinator Relationship Specialty Start Date End Date Amanda Barrios APRN, C.N.P. PCP - General 02/27/17 02/24/18 [address] [place] [phone] documented as of this encounter
--- OUTSIDE RECORDS SUMMARY | 2022-06-23 22:45 | XMS_ITS | Encounter Summary ---
:1970 Author Organization [facility] Address [address] [place] [address] Care Team Providers Name Role Phone Amanda Barrios APRN, C.N.P. Primary Care Provider [phone] Reason for Visit Reason Comments Diabetes needs refills. Having restle ss leg. Left side arm and hand will spasms at times. Discuss A1C Outpatient (Routine) - Closed Specialty Diagnoses / Procedures Referred By Contact Refer red To Contact Family Medicine Diagnoses Diabetes Mellitus Type 2 (HCC) Amanda Barrios APRN, [facility] C.N.P. [address] [place] [phone] Referral ID Status Reason Start Date Expiration Date Visits Requ ested Visits Authorized [id number] Closed 08/27/2017 02/23/2018 1 1 Encounter Details Date Type Department Care Team Description 09/18/2017 Office Visit Department of Family Amanda Barrios Dia betes Mellitus Type 2 Hyperglycemia (HCC) (Primary Dx); Medicine, [place], C.N.P. Diabetes Mellitus Type 2 (HCC); Clinic, in [place], [address] Adviser Use Of Insulin Active (HCC); [place], [place] Hyperlipidemia Mixed; [address] [address] Hypertension Essential Primary; [place], [place] [phone] Ecz[place] [phone] (Work) [phone] Social History Tobacco Use Types Packs/Day Years [...] or slept in a long-term (including now)? Sex Assigned at Date Recorded Male 01/30/2018 9:28 AM CDT documented as of this encounter Last Filed Vital Signs Vital Sign Reading Time Taken Comments Blood Pressure 138/80 09/18/2017 9:19 AM RADIATOR SPECIALIST Pulse 68 09/18/2017 9:19 AM RADIATOR SPECIALIST Temperature 36.4 ??C (97.5 ??F) 09/18/2017 9:19 AM RADIATOR SPECIALIST Respiratory Rate 20 09/18/2017 9:19 AM RADIATOR SPECIALIST Oxygen Saturation - - Inhaled Oxygen Concentration - - Weight 160 kg (351 lb 10.1 oz) 09/18/2017 9:19 AM RADIATOR SPECIALIST Height 165 cm (5' 4.96) 09/18/2017 9:19 AM RADIATOR SPECIALIST Body Mass Index 58.59 09/18/2017 9:19 AM RADIATOR SPECIALIST documented in this encounter Patient Instructions Patient InstructionsAmanda Barrios APRN, C.N.P. - 09/18/2017 9:15 AM RADIATOR SPECIALIST It was a pleasure seeing you in the clinic! My goal is to always provide excellent care for my patients. If you receive a clinic survey in the mail and felt you received great care, I would sure appreciate you filling it out and sending it in. Thanks and take care! ATOR SPECIALIST AttachmentsThe following attachments cannot be sent through Care Everywhere.DASH diet: Healthy eating to lower your blood pressure (Trinidadian)documented in this encounter Progress Notes Amanda Barrios APRN, C.N.P. - 09/18/2017 9:15 AM CST SUBJECTIVE CHIEF COMPLAINT: Chief Complaint Patient presents with ??? Diabetes needs refills. Having restless leg. Left side arm and hand will spasms at times. Discuss A1C HISTORY OF PRESENT ILLNESS: Paul is here for diabetes recheck. A1c elevated at 12.1. We discussed discontinuing glimepiride and having him add NovoLog insulin at breakfast and lunch, he is already taking NovoLog at dinner. He is due for dilated eye exam. Lipids are stable on atorvastatin without adverse effects. Hypertension stable on Diovan. He has been having worsening exit on his elbows and some on the wrist. He needs refill of Lidex cream. REVIEW OF SYSTEMS: The following portions of the patient's history were reviewed and updated as appropriate: allergies,current medications, family history, medical history, social history, surgical history and problem list. ALLERGIES: Allergies Allergen Reactions ??? Lisinopril Cough MEDICATIONS: Current Outpatient Prescriptions: ??? aspirin 81 mg capsule, Take 81 [...] oral tablet PRN, Disp: , Rfl: ??? fluocinonide (for_LIDEX) 0.05 % cream, Apply 1 application topically 2 (two) times a day as needed for irritation or rash (eczema)., Disp: 60 g, Rfl: 0 ??? fluticasone (for_FLONASE) 50 mcg/actuation nasal spray, Administer 2 sprays into each nostril daily., Disp: , Rfl: ??? insulin aspart (NovoLOG Flexpen) 100 unit/mL injection, 20 units before each meal3 times daily.,Disp: 30 mL, Rfl: 2 ??? insulin glargine (LANTUS SOLOSTAR) 100 unit/mL (3 mL) injection, Inject 0.4 mL (40 Units total) under the skin at bedtime., Disp: 30 mL, Rfl: 2 ??? multivitamin capsule, daily., Disp: , Rfl: ??? omeprazole (for_PriLOSEC) 20 mg capsule, Take 20 mg by mouth every morning before breakfast., Disp: , Rfl: ??? valsartan (DIOVAN) 80 mg tablet, Take 1 tablet (80 mg total) by mouth daily., Disp: 90 tablet, Rfl: 3 ??? pen needle, diabetic (LITE TOUCH INSULIN PEN NEEDLES) 31 gauge x 5/16 needle, Inject insulin 4 times daily., Disp: 200 each, Rfl: 11 OBJECTIVE LABS and DIAGNOSTICS: Results for orders placed or performed during the hospital encounter of 09/17/17 Hemoglobin A1c Result Value Ref Range Hemoglobin A1c, B 12.1 (H) 4.2 - 5.6 % VITAL SIGNS: Temperature: [36.4 ??C] 36.4 ??C Resp Rate: [20] 20 Blood Pressure: (138)/(80) 138/80 Pulse Rate: [68] 68 PHYSICAL EXAM: GENERAL: In general, the patient [...] are +2 and symmetrical. ASSESSMENT /PLAN: #1 Diabetes Mellitus Type 2 Hyperglycemia (HCC) Worsening, A1c 12.1. Discontinue glimepiride. Adding NovoLog insulin 20 units before breakfast, lunch and dinner. Continue Lantus insulin 40 units at bedtime. Call with blood sugars in 5 days. Will adjust insulin accordingly. Schedule dilated eye exam. Recheck A1c in 3 months. #2 [facility] Use Of Insulin Active (HCC) Adding NovoLog insulin at breakfast and lunch. #3 Hyperlipidemia Mixed Stable on atorvastatin without adverse effects. #4 Hypertension Essential Primary Stable on Diovan, no change in medication. #5 Eczema Worsening, fluocinonide 0.05% cream, apply topically twice daily as needed. Recheck if symptoms do not improve. HEALTH MAINTENANCE: Due for dilated eye exam. ATOR SPECIALIST documented in this encounter Plan of Treatment Upcoming Encounters Date Type Specialty Care Team Description 06/26/2022 Appointment Neurology Preet Landeros M.D . [address] [place] [phone] Bria Suh APRN, C.N.P., M.S.N. [address] [place] [phone] 07/25/2022 Appointment Radiology Preet Landeros M.D . [address] [place] [phone] (Wo rk) documented as of this encounter Visit Diagnoses Diagnosis Diabetes Mellitus Type 2 Hyperglycemia ( HCC) - Primary Diabetes Mellitus Type 2 (HCC) [facility] Use Of Insulin Active (HCC) Hyperlipidemia Mixed Hypertension Essential Primary Eczema documented in this encounter Care Teams Security Manager Relationship Specialty Start Date End Date Amadna Barrios, BRET, C.N.P. PCP - General 02/27/17 02/24/[address] [phone] documented as of this encounter
--- OUTSIDE RECORDS SUMMARY | 2022-06-23 22:45 | XMS_ITS | Encounter Summary ---
:1970 Author Organization [facility] Address [address] [place] [address] Care Team Providers Name Role Phone Amanda Barrios APRN, C.N.P. Primary Care Provider [phone] Reason for Visit Reason Comments Med Refill Encounter Details Date Type Department Care Team Description 09/05/2017 Refill Department of Family Medicine, Mayda Barrios APRN, Med Refill [facility], [place] [address] [phone] [place] [address] [phone] Social History Tobacco Use Types Packs/Day Years [...] Neurology Preet Landeros M.D . [address] [place] [phone] Bria Suh APRN, C.N.P., M.S.N. [address] [place] [phone] 07/25/2022 Appointment Radiology Preet Landeros M.D . [address] [place] [phone] (Wo rk) documented as of this encounter Visit Diagnoses Diagnosis Diabetes Mellitus Type 2 (HCC) - Primary documented in this encounter Additional Health Concerns Assessment Noted Time PHQ-9 Depression Total Score: 4 04/20/2015 2:22 PM CDT documented as of this encounter Care Teams Insulation Supervisor Relationship Specialty Start Date End Date Amanda Barrios APRN, C.N.P. PCP - General 02/27/17 02/24/18 [address], [place] [phone] documented as of this encounter
--- OUTSIDE RECORDS SUMMARY | 2022-06-23 22:45 | XMS_ITS | Encounter Summary ---
:1970 Author Organization [facility] Address [address] [place] [address] Care Team Providers Name Role Phone Amanda Barrios APRN C.N.PBon Primary Care Provider [phone] Encounter Details Date Type Department Care Team Description 09/17/2017 Hospital Encounter Department of Amanda Barrios Use Of Insulin Active (HCC); Laboratory Medicine BRET Johnston C.N .P. Diabetes Mellitus Type 2 (HCC) in [facility] [address] [place], [place] [address] [address] [place], [place] [phone] (Work) [phone] Social History Tobacco Use Types Packs/Day Years [...] as mcg/actuation nasal needed. spray glimepiride Take 2 tablets (8 mg 60 tablet 0 09/10/201712/2017 (for_AMARYL) 4 mg total) by mouth once tabletIndications: daily. Needs labs and Diabetes Mellitus Type appointment before 2 ([facility]) next refill. ibuprofen (ADVIL) 200 Take 2 tablets by 0 12/07/ 016 05/17/2020 mg tablet mouth as needed. insulin aspart (NovoLOG Inject 0.32 mL (32 15 mL 0 08/1509/18/2017 Flexpen) 100 unit/mL Units total) under the injection skin daily with dinner. Needs appointment and labs before next refill. insulin glargine Inject 40 Units under 0 04/07/20 17 09/18/2017 (LANTUS SOLOSTAR) 100 the skin at bedtime. unit/mL (3 mL) injection multivitamin capsule daily. 0 03/09/201001/13 omeprazole Take 20 mg by mouth 0 08/03 (for_PriLOSEC) 20 mg every morning before capsule breakfast. valsartan (DIOVAN) 80 Take 1 tablet by mouth 0 09/18/2017 mg tablet daily. documented as of this encounter Plan of Treatment Upcoming Encounters Date Type Specialty Care Team Description 06/26/2022 Appointment Neurology Preet Landeros M.D . [address] [place] [phone] Bria Suh APRN, C.N.P., M.S.N. [address] [place] [phone] 07/25/2022 Appointment Radiology Preet Landeros M.D . [address] [place] [phone] (Wo rk) documented as of this encounter Procedures Procedure Name Priority Date/Time Associated Diagnosis Comme nts HEMOGLOBIN A1C, B Routine 09/17/2017 9:03 AM School Manager Use Of Results for this HOTEL BREAKFAST ATTENDANT Insulin Active ( HCC) procedure are in Diabetes Mellitus the result s Type 2 (HCC) section. documented in this encounter Results (ABNORMAL) Hemoglobin A1c (09/17/2017 9:03 AM HOTEL BREAKFAST ATTENDANT) Analysis Performed At Patho logist Time Signature Hemoglobin A1c, 12.1 (H) 4.2 - 5.6 09/17/2017 [facility] B % 12:10 PM HOTEL BREAKFAST ATTENDANT [facility] Comment: Hemoglobin A1c values greater than or eq ual to 6.5 percent are diagnostic for diabetes mellitus. ?? Diagnosis should be confirmed by repeat testing. ??In diabet ic patients, HbA1c goals should be discussed with healthcar e provider. Specimen Anatomical Collection Method Collection Time Receive d Time (Source) Location / / Volume Laterality Blood 09/17/2017 9:03 AM 8 HOTEL BREAKFAST ATTENDANT 11:13 AM HOTEL BREAKFAST ATTENDANT Amanda Barrios APRN, C.N.P. LAB BLOOD ADD-ON Performing Organization Address City/State/ZIP Code Phon e Number [facility] [address] [place] [address] LAB documented in this encounter Visit Diagnoses Diagnosis [facility] Use Of Insulin Active (HCC) Diabetes Mellitus Type 2 (HCC) documented in this encounter Additional Health Concerns Assessment Noted Time PHQ-9 Depression Total Score: 4 04/20/2015 2:22 PM CDT documented as of this encounter Care Teams General Sales Manager Relationship Specialty Start Date End Date Amanda Barrios APRN, C.N.P. PCP - General 02/27/17 02/24/180 [place] [phone] documented as of this encounter
--- OUTSIDE RECORDS SUMMARY | 2022-06-23 22:45 | XMS_ITS | Encounter Summary ---
:1970 Author Organization [facility] Address [address] [place] [address] Care Team Providers Name Role Phone Amanda Barrios APRN, C.N.P. Primary Care Provider [phone] Reason for Visit Reason Comments Med Refill Encounter Details Date Type Department Care Team Description 08/27/2017 Refill Department of Family Medicine, Mayda Barrios APRN, Med Refill [facility], [place] [address] [phone] [place] [address] [phone] Social History Tobacco Use Types Packs/Day Years [...] Neurology Preet Landeros M.D . [address] [place] [phone] Bria Suh APRN, C.N.P., M.S.N. [address] [place] [phone] 07/25/2022 Appointment Radiology Preet Landeros M.D . [address] [place] [phone] (Wo rk) documented as of this encounter Visit Diagnoses Not on filedocumented in this encounter Additional Health Concerns Assessment Noted Time PHQ-9 Depression Total Score: 4 04/20/2015 2:22 PM CDT documented as of this encounter Care Teams Rod Bending Machine Operator Relationship Specialty Start Date End Date Amanda Barrios APRN, C.N.P. PCP - General 02/27/17 02/24/18 [address] [place] [phone] documented as of this encounter
--- OUTSIDE RECORDS SUMMARY | 2022-06-23 22:45 | XMS_ITS | Encounter Summary ---
:1970 Author Organization [facility] Address [address] [place] [address] Care Team Providers Name Role Phone Amanda Barrios APRN C.NBonPBon Primary Care Provider [phone] Reason for Visit Reason Comments Cough for past week Appointment Request (Routine) - Closed Specialty Diagnoses / Procedures Referred By Contact Refer red To Contact Family Medicine Referral ID Status Reason Start Date Expiration Date Visits Requ ested Visits Authorized [id number] Closed 10/17/2017 04/15/2018 1 1 Encounter Details Date Type Department Care Team Description 10/17/2017 Office Visit Department of Family Roz Pack, Infect ion Upper Respiratory (Primary Dx); MedicineJuwan M.D. [facility], in [place] [address] [address] [place], [place] [phone] (Work) [phone] Social History Tobacco Use Types Packs/Day Years [...] 06/02/2022 organizations such as lutheran groups, unions, fraVapps or athletic groups, or school groups? How [...] Sign Reading Time Taken Comments Blood Pressure 126/78 10/17/2017 3:19 PM FIELD MARKETING COORDINATOR Pulse 78 10/17/2017 3:19 PM FIELD MARKETING COORDINATOR Temperature 36.9 ??C (98.4 ??F) 10/17/2017 3:19 PM FIELD MARKETING COORDINATOR Respiratory Rate 16 10/17/2017 3:19 PM FIELD MARKETING COORDINATOR Oxygen Saturation 99% 10/17/2017 3:19 PM FIELD MARKETING COORDINATOR Inhaled Oxygen Concentration - - Weight 161 kg (354 lb 0.9 oz) 10/17/2017 3:19 PM FIELD MARKETING COORDINATOR Height - - Body Mass Index 58.99 09/18/2017 9:19 AM FIELD MARKETING COORDINATOR documented in this encounter Patient Instructions Patient InstructionsRoz Pack M.D. - 10/17/2017 3:45 PM CST 1. Infection Upper Respiratory Comments:Etiology likely viral infection. Non-toxic appearing and vital signs are stable. -Patient education and reassurance provided. -Discussed etiology and expected course. -Supportive care. Encouraged to eat fruits, vegetables and drink plenty of fluids. -Discussed to use honey with lemon to help with cough. -Symptomatic treat with gargles, lozenges, and OTC analgesic as needed. -Reviewed warning signs to watch out for such as worsening SOB, fever or chest pain then will need to return to clinic for repeat evaluation. -Follow-up if not improving or worsening of symptoms. - benzonatate (for_TESSALON) 200 mg capsule; Take 1 capsule (200 mg total) by mouth 3 (three) times a day as needed for cough for up to 7 days. Dispense: 20 capsule; Refill: 0 - codeine-guaiFENesin (for_ROBITUSSIN-AC) 10-100 mg/5 mL liquid; Take 5-10 mL by mouth every 4 (four) hours as needed for cough for up to 4 days. Dispense: 118 mL; Refill: 0 2. Sleep Terrors -Check glucose when he has an episode. - Sleep Medicine - General consult (clinic); Future - Psychiatry and Psychology - General consult (clinic); Future D MARKETING COORDINATOR documented in this encounter Progress Notes Roz Pack M.D. - 10/17/2017 3:45 PM CST SUBJECTIVE Chief Complaint Chief Complaint Patient presents with ??? Cough for past week HPI HPI Night terrors: Paul Murphy is a 47 years old male who is here with his mother who present with night terror. Patient reports he had two incidents for the past 1.5 weeks. Patient is scared to goback to his bedroom given his recent night terrors. His mom reports that he was swearing, cursing, looked confused, angry and frightened. Night terrors lasted from 30 minutes to one hour. He does not remember what happened during the night terrors episode. Patient state his parents were present for both incidents and and he was saying that he is going to smash everything during his episode of the night terrors. Any recent stressors. He had been worried about his recent hemoglobin A1c of 12%. No histo ry of trauma. He remember after the incident looking at clock and did not know what the numbers presented. Cough: Patient reports he has been dealing with cough for the past 1.5 weeks. Describe the cough as dry cough. He has chest rattling. He had fever for one day. No chills. Mild runny nose and congestion Problem list Patient Active Problem List Diagnosis ??? Hypertension Essential Primary ??? Diabetes Mellitus Type 2 Hyperglycemia (HCC) ??? Carcinoma Renal Cell Left (HCC) ??? 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 Body Mass Index 50.0 To 59.9 Adult (HCC) ??? Eczema ??? Hyperlipidemia Mixed ??? Psoriasis Current Medications Current Outpatient Prescriptions Medication Sig Dispense Refill ??? aspirin 81 mg capsule Take 81 mg by mouth daily. ??? atorvastatin (for_LIPITOR) 10 mg tablet Take 1 tablet (10 mg total) by mouth at bedtime. 90 tablet 1 ??? calcium carbonate-vitamin D3 (CALCIUM+D) 400-133.3 mg-unit tablet Take by mouth 2 (two) times a day. ??? cetirizine (ZyrTEC) 10 mg tablet Zyrtec 10 mg oral tablet PRN ??? fluocinonide (for_LIDEX) 0.05 % cream Apply 1 application topically 2 (two) times a day as needed for irritation or rash (eczema). 60 g 0 ??? fluticasone (for_FLONASE) 50 mcg/actuation nasal spray Administer 2 sprays into each nostril daily. ??? insulin aspart (NovoLOG Flexpen) 100 unit/mL injection 20 units before each meal3 times daily. 30 mL 2 ??? insulin glargine (LANTUS SOLOSTAR) 100 unit/mL (3 mL) injection Inject 0.4 mL (40 Units total) under the skin at bedtime. 30 mL 2 ??? multivitamin capsule daily. ??? omeprazole (for_PriLOSEC) 20 mg capsule Take 20 mg by mouth every morning before breakfast. ??? pen needle, diabetic (LITE TOUCH INSULIN PEN NEEDLES) 31 gauge x 5/16 needle Inject insulin 4 times daily. 200 each 11 ??? valsartan (DIOVAN) 80 mg tablet Take 1 tablet (80 mg total) by mouth daily. 90 tablet 3 No current facility-administered medications for this visit. Past medical history Past Medical History: Diagnosis Date ??? Diabetes Mellitus Type 2 (HCC) 11/08/2015 DM2 Uncontrolled ??? Diabetes Mellitus Type 2 Hyperglycemia (HCC) 11/08/2015 DM2 Uncontrolled Past surgical history Past Surgical History: Procedure Laterality Date ??? APPENDECTOMY N/A 10/30/1984 Appendectomy ??? PRIMARY REPAIR OF INCISIONAL HERNIA N/A 05/29/2011 Repair initial incisional or ventral hernia; incarcerated or strangulated.. Family History Family History Problem Relation Age of Onset ??? Diabetes Brother Allergies Allergies Allergen Reactions ??? Lisinopril Cough SOCIAL HISTORY Social History Social History ??? Marital status: Single Spouse name: N/A ??? Number of children: N/A ??? Years of education: N/A Social History Main Topics ??? Smoking status: Former Smoker ??? Smokeless tobacco: Never Used ??? Alcohol use Yes Comment: occassionally twice monthly ??? Drug use: No ??? Sexual activity: Yes Other Topics Concern ??? None Social History Narrative ??? None REVIEW OF SYSTEMS Negative review of major organ systems apart from that noted in the HPI and the Past Medical/Surgical History. PHSYCIAL EXAM Vitals: 10/17/17 1519 BP: 126/78 Pulse: 78 Resp: 16 Temp: 36.9 ??C SpO2: 99% Constitutional: He is oriented to person, place, and time. He appears well- developed and well-nourished. No distress. HENT: Head: Normocephalic and atraumatic. Mouth/Throat: Oropharynx is clear and moist. No oropharyngeal exudate. Cardiovascular: Normal rate, regular rhythm and normal heart sounds. No murmur heard. Pulmonary/Chest: Effort normal and breath sounds normal. No respiratory distress. He has no wheezes. Neurological: He is alert and oriented to person, place, and time. LABS/IMAGING No results found for this or any previous visit (from the past 24 hour(s)). ASSESSMENT AND PLAN Patient Instructions 1. Infection Upper Respiratory Comments:Etiology likely viral infection. Non-toxic appearing and vital signs are stable. -Patient education and reassurance provided. -Discussed etiology and expected course. -Supportive care. Encouraged to eat fruits, vegetables and drink plenty of fluids. -Discussed to use honey with lemon to help with cough. -Symptomatic treat with gargles, lozenges, and OTC analgesic as needed. -Reviewed warning signs to watch out for such as worsening SOB, fever or chest pain then will need to return to clinic for repeat evaluation. -Follow-up if not improving or worsening of symptoms. - benzonatate (for_TESSALON) 200 mg capsule; Take 1 capsule (200 mg total) by mouth 3 (three) times a day as needed for cough for up to 7 days. Dispense: 20 capsule; Refill: 0 - codeine-guaiFENesin (for_ROBITUSSIN-AC) 10-100 mg/5 mL liquid; Take 5-10 mL by mouth every 4 (four) hours as needed for cough for up to 4 days. Dispense: 118 mL; Refill: 0 2. Sleep Terrors: Unclear cause. His episode happened around 2-3 a.m. in the morning. His night terrors has been witnessed by his both parents. -Advised to check glucose when he has an episode given he was started on insulin regimen one month ago. A sleep medicine and psychiatry referral was placed. -Follow up in 2 weeks. - Sleep Medicine - General consult (clinic); Future - Psychiatry and Psychology - General consult (clinic); Future Options for treatment and follow-up care were reviewed with the patient . Paul Murphy and/yazmin engaged in the decision making process and verbalized understanding of the options discussed and agreed with the final plan. A total of 25 minutes were spent [id number] with the patient during this encounter and 20 minutes were spent on counseling, discussing the plan and coordination of care. Roz Pack M.D. D MARKETING COORDINATOR documented in this encounter Plan of Treatment Upcoming Encounters Date Type Specialty Care Team Description 06/26/2022 Appointment Neurology Preet Landeros M.D . [address] [place] [phone] Bria Suh APRN, C.N.P., M.S.N. [address] [place] [phone] 07/25/2022 Appointment Radiology Preet Landeros M.D . [address] [place] [address] [phone] (Wo rk) documented as of this encounter Visit Diagnoses Diagnosis Infection Upper Respiratory - Primary Sleep Terrors documented in this encounter Care Teams Sole Rounder Relationship Specialty Start Date End Date Amanda Barrios APRN, C.N.P. PCP - General 02/27/17 02/24/18 [address] [place] [phone] documented as of this encounter
--- OUTSIDE RECORDS SUMMARY | 2022-06-23 22:45 | XMS_ITS | Encounter Summary ---
:1970 Author Organization [facility] Address [address] [place] [address] Care Team Providers Name Role Phone Amanda Barrios APRN, C.NPietro Primary Care Provider [phone] Reason for Visit Reason Comments Communication Encounter Details Date Type Department Care Team Description 09/01/2017 Clinical Communication Department of [facility] Vickie Joe Communication Medicine, Juwan Tiara [facility], in [address] [place], [place] [address] [address] [place], [place] [phone] (Work) [phone] Social History Tobacco Use Types Packs/Day Years [...] More than 4 times per year 06/02/2022 restoration services? Do you belong to any clubs [...] this encounter Miscellaneous Notes Telephone Encounter - Amanda Barrios APRN, C.N.P. - 09/03/2017 2:36 PM VASC TECH Noted TECH Telephone Encounter - Debo Joe L.P.N. - 09/03/2017 2:32 PM VASC TECH Amanda I have tried to contact Paul and his mailbox is full. TECH Telephone Encounter - Debo Joe L.P.N. - 09/02/2017 12:23 PM VASC TECH Attempted to contact Paul. Annikabox full. Unable to reach. TECH Telephone Encounter - Debo Joe L.P.N. - 09/01/2017 3:54 PM VASC TECH Attempted to contact Paul. Noel full. Need to inform him to schedule appointment with Amanda campbell request from [facility] CastingDB TECH documented in this encounter Plan of Treatment Upcoming Encounters Date Type Specialty Care Team Description 06/26/2022 Appointment Neurology Preet Landeros M.D . [address] [place] [phone] Bria Suh APRN, C.N.P., M.S.N. [address] [place] [phone] 07/25/2022 Appointment Radiology Preet Landeros M.D . [address] [place] [address] [phone] (Wo rk) documented as of this encounter Visit Diagnoses Not on filedocumented in this encounter Additional Health Concerns Assessment Noted Time PHQ-9 Depression Total Score: 4 04/20/2015 2:22 PM CDT documented as of this encounter Care Teams Appellate Court Clerk Relationship Specialty Start Date End Date Amanda Barrios APRN, C.N.P. PCP - General 02/27/17 02/24/18 [address] [place] [phone] documented as of this encounter
--- OUTSIDE RECORDS SUMMARY | 2022-06-23 22:45 | XMS_ITS | Encounter Summary ---
:1970 Author Organization [facility] Address [address] [place] [address] Care Team Providers Name Role Phone Amanda Barrios APRN, C.N.P. Primary Care Provider [phone] Reason for Referral Outpatient (Routine) - Closed Specialty Diagnoses / Procedures Referred By Contact Refer red To Contact Family Medicine Diagnoses Diabetes Mellitus Type 2 (HCC) Amanda Barrios APRN, [facility] C.N.P. [address] [place] [address] Referral ID Status Reason Start Date Expiration Date Visits Requ ested Visits Authorized [id number] Closed 08/27/2017 02/23/2018 1 1 Scheduling Instructions Diabetes recheck N MILLER HELPER Encounter Details Date Type Department Care Team Description 08/27/2017 Orders Only Department of Family Amanda Barrios Lon g Term Use Of Insulin Active (HCC) (Primary Dx); Medicine, Juwan QUEEN, C.N.P. Diabetes Mellitus Type 2 (HCC) Clinic, in [place], [address] [place], [place] [address] [address] [place], [place] [phone] (Work) [phone] Social History Tobacco Use Types Packs/Day Years [...] Neurology Preet Landeros M.D . [address] [place] [phone] Bria Suh APRN, C.N.P., M.S.N. [address] [place] [phone] 07/25/2022 Appointment Radiology Preet Landeros M.D . [address] [place] [address] [phone] (Wo rk) Scheduled Referrals Name Type Priority Associated Diagnoses Order S [facility] Medicine Outpatient Referral Routine Diabetes Mellitus Expected: office visit Type 2 (HCC) 08/27/2017 (clinic) (Approximate), Expires: 08/27/2020 documented as of this encounter Results (ABNORMAL) Hemoglobin A1c (09/17/2017 9:03 AM GRAIN MILLER HELPER) Analysis Performed At Patho logist Time Signature Hemoglobin A1c, 12.1 (H) 4.2 - 5.6 09/17/2017 [facility] B % 12:10 PM GRAIN MILLER HELPER [facility] Comment: Hemoglobin A1c values greater than or eq ual to 6.5 percent are diagnostic for diabetes mellitus. ?? Diagnosis should be confirmed by repeat testing. ??In diabet ic patients, HbA1c goals should be discussed with healthcar e provider. Specimen Anatomical Collection Method Collection Time Receive d Time (Source) Location / / Volume Laterality Blood 09/17/2017 9:03 AM 8 GRAIN MILLER HELPER 11:13 AM GRAIN MILLER HELPER Amanda Barrios APRN, C.N.P. 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 PCP - General 02/27/17 02/24/180 [address], [place] [phone] documented as of this encounter
--- OUTSIDE RECORDS SUMMARY | 2022-06-23 22:45 | XMS_ITS | Encounter Summary ---
:1970 Author Organization [facility] Address [address] [place] [address] Care Team Providers Name Role Phone Amanda Barrios APRN, C.N.P. Primary Care Provider [phone] Encounter Details Date Type Department Care Team Description 10/23/2017 Orders Only Department of Family Amanda Barrios Dia betes Mellitus Type 2 Hyperglycemia (HCC) (Primary Dx); Medicine, [place] BRET, C.N.P. Intermediate Use Of Insulin Active (HCC) Clinic, in [place], [address] [place], [place] [address] [address] [place], [place] [phone] (Work) [phone] Social History Tobacco Use Types Packs/Day Years [...] Neurology Preet Landeros M.D . [address] [place] [phone] Bria Suh APRN, C.N.P., M.S.N. [address] [place] [phone] 07/25/2022 Appointment Radiology Preet Landeros M.D . [address] [place], [place] [phone] (Wo rk) documented as of this encounter Visit Diagnoses Diagnosis Diabetes Mellitus Type 2 Hyperglycemia ( HCC) - Primary Intermediate Use Of Insulin Active (HCC) documented in this encounter Care Teams Truck Hop Relationship Specialty Start Date End Date Amanda Barrios APRN, C.N.P. PCP - General 02/27/17 02/24/18 [address] [place] [phone] (work) documented as of this encounter
--- OUTSIDE RECORDS SUMMARY | 2022-06-23 22:46 | XMS_ITS | Encounter Summary ---
:1970 Author Organization [facility] Address [address] [place] [address] Care Team Providers Name Role Phone Unavailable Primary Care Provider Unavailable Encounter Details Date Type Department Care Team Description 01/09/2015 Hospital Encounter HX [facility] Atiya Felipe, Jakob PRLiss, C.N.P. [address] [phone] (Wo rk) Social History [...] 06/02/2022 organizations such as taoism groups, unions, fraternal or athletic groups, or [...] - - Height 169 cm (5' 6.54) 01/09/2015 10:59 AM CDT Body Mass Index - - documented in this encounter Medications at Time of Discharge Medication Sig Dispensed Refills Start Date End Date aspirin 81 mg capsule Take 81 mg by mouth 0 03/09 daily. calcium Take by mouth 2 (two) 0 03/25/201110/2019 carbonate-vitamin D3 times a day. (CALCIUM+D) 400-133.3 mg-unit tablet cetirizine (ZyrTEC) 10 Zyrtec 10 mg oral 0 200905/17/2020 mg tablet tablet PRN fluocinonide Apply 1 application 0 01/09/201512/2017 (for_LIDEX) 0.05 % gel topically 2 (two) times a day. multivitamin capsule daily. 0 03/09/201001/13 documented as of this encounter Miscellaneous Notes Miscellaneous - Atiya Felipe, BRET, C.N.P. - 01/09/2015 2:50 PM CDT Schedule Follow-Up Visit 09 January 2015 CALI MURPHY [id number] [facility] [phone] Dear CALI MURPHY, Thank you for choosing [facility] for your health care needs. You recently had laboratory work performed to assess your overall health. This letter contains the results of your testing and standard ranges to help explain the results. I would recommend follow-up as we previously discussed. If you have questions prior to our appointment, please contact our office. Result Name Current Result Previous Result Normal Range U Albumin (mg/L) 19.0 01/09/2015 U Creatinine (mg/dL) 50.6 01/09/2015 U Alb/Creatinine Ratio (mg/g) (H) 38 01/09/2015 0 - 17 Sodium Lvl (mmol/L) 140 01/09/2015 141 09/27/2013 135 - 145 Potassium Lvl (mmol/L) 4.6 01/09/2015 4.7 09/27/2013 3.6 - 5.2 Chloride (mmol/L) 99 01/09/2015 (L) 99 09/27/2013 98 - 107 CO2 (mmol/L) 29 01/09/2015 (H) 32 09/27/2013 22 - 29 Glucose Fasting (mg/dL) (H) 199 01/09/2015 70 - 99 Creatinine (mg/dL) (L) 0.7 01/09/2015 (L) 0.7 09/27/2013 0.8 - 1.3 EGFR (MDRD) (mL/min/1.73m2) >60 01/09/2015 >60 09/27/2013 >=60 - EGFR (MDRD) (mL/min/1.73m2) >60 01/09/2015 >60 09/27/2013 >=60 - BUN (mg/dL) 11 01/09/2015 12 09/27/2013 8 - 24 Calcium Lvl (mg/dL) 9.3 01/09/2015 9.5 09/27/2013 8.6 - 10.3 Cholesterol (mg/dL) 165 01/09/2015 - <=199 Trig (mg/dL) (H) 224 01/09/2015 - <=149 HDL (mg/dL) (L) 37 01/09/2015 >=40 - brdrsLDL Calculated (mg/dL) 83 01/09/2015 - <=129 Chol/HDL Ratio 4.46 01/09/2015 LDL/HDL 2 01/09/2015 Hgb A1c (% A1C) (H) 8.50 01/09/2015 (H) 8.4 06/09/2014 - <=5.60 Sincerely, ATIYA FELIPE [address] [place] [address] Electronic Signature Electronically Signed By: ATIYA FELIPE SPINNING LATHE OPERATOR AUTOMATIC On: 09 January 2015 This document has images extracted. Source: [facility] POWERCHART Document Id: [id number] Electronically signed by Conversion, [facility] Acoustic Warfare Analyst [id number] at 02/09/2017 5:27 PM CDT documented in this encounter Plan of Treatment Upcoming Encounters Date Type Specialty Care Team Description 06/26/2022 Appointment Neurology Preet Landeros M.D . [address] [place] [phone] Bria Suh APRN, C.N.P., M.S.N. [address] [place] [phone] 07/25/2022 Appointment Radiology Preet Landeros M.D . [address] [place] [phone] (Wo rk) documented as of this encounter Procedures Procedure Name Priority Date/Time Associated Comments Diagnosis ALBUMIN, RANDOM, U Routine 01/09/2015 11:11 AM Re sults for this CDT procedure are i n the results section. LIPID PANEL, S Routine 01/09/2015 11:11 AM Result s for this CDT procedure are i n the results section. HEMOGLOBIN A1C, B Routine 01/09/2015 11:11 AM Res ults for this CDT procedure are i n the results section. BASIC METABOLIC Routine 01/09/2015 11:11 AM Resul ts for this PANEL, S/P CDT procedure are i n the results section. documented in this encounter Results (ABNORMAL) Microalbumin, Random, Urine (01/09/2015 11:11 AM CDT) P athologist Signature HXU Albumin % 19.0 MGL POWERCHART Creatinine, 50.6 MGDL POWERCHART Random, U Albumin/Creatin 38 (H) 0 - 17 MGG POWERCHART ine Ratio Specimen (Source) Anatomical Collection Method Collection Time Re ceived Time Location / / Volume Laterality Urine 01/09/2015 11:11 AM CDT Atiya Felipe APRN, C.N.P. LAB URINE ORDERABLES Performing Organization Address City/State/ZIP Code Phon e Number POWERCHART (ABNORMAL) Hemoglobin A1c (01/09/2015 11:11 AM CDT) Analysis Performed At Patho logist Time Signature Hemoglobin A1c, 8.50 (H) <=5.60 A1C POWERCHART B Specimen (Source) Anatomical Collection Method Collection Time Re ceived Time Location / / Volume Laterality Blood 01/09/2015 11:11 AM CDT Atiya Felipe APRN C.N.PBon LAB BLOOD ADD-ON Performing Organization Address City/State/ZIP Code Phon e Number POWERCHART (ABNORMAL) Lipid Panel (01/09/2015 11:11 AM CDT) P athologist Signature Calculated LDL 83 <=129 MGDL POWERCHART Comment: [...] esting for FH and FDB is available throu [facility]: FH/ADH Genetic Reflex [place] el (test ADHP). Acquired (non-genetic) causes of markedly increased LDL cholesterol include cholestatic liver disease due to the presence of LpX. If a genetic form of hypercholesterolemia is suspected, family studies including biochemical testing fo r lipids (total cholesterol,triglycerides, LDL cholesterol and HDL cholesterol) are recommended. ??Please contact the laboratory at or the on-line test catalog at [employer] for information about how to order these adam ts or to speak with a genetic counselor. Further interpretation would require clinical information. Total Cholesterol/HDL Ratio 4.46 PO WERCHART Cholesterol, Total 165 <=199 MGDL POWERCHART Comment: 2013 National Lipid Association recommen dations for Total Cholesterol in adults ages 18 and up: Desirable <200 mg/dL Borderline high 200-239 mg/dL High 240 mg/dL 2014 National Lipid Association recommen dations for Total Cholesterol in children ages 2 to 17. Acceptable <170 mg/dL Borderline High 170-199 mg/dL High 200 mg/dL HX HDL 37 (L) >=40 MGDL POWERCHART Comment: 2013 National Lipid Association recommen dations for HDL-C in adults ages 18 and up: Low <40 mg/dL (Men) Low <50 mg/dL (Women) 2014 National Lipid Association recommen dations for HDL-C in children ages 2 to 17. Low <40 mg/dL Borderline Low 40-45 mg/dL Acceptable >45 mg/dL Triglycerides 224 (H) <=149 MGDL POWERCHART Comment: 2013 National Lipid Association recommen dations for Triglycerides [...] for risk assessment when triglycerides are >400mg/dL. HXLDL/HDL 2 POWERCHART Specimen (Source) Anatomical Collection Method Collection Time Re ceived Time Location / / Volume Laterality Blood 01/09/2015 11:11 AM CDT Atiya Felipe APRN, C.N.P. LAB BLOOD ADD-ON Performing Organization Address City/State/ZIP Code Phon e Number POWERCHART (ABNORMAL) BMP (Basic Metabolic Panel) (01/09/2015 11:11 AM CDT) P athologist Signature BUN (Blood Urea 11 8 - 24 POWERCHART Nitrogen), S MGDL Chloride, S 99 98 - 107 POWERCHART MMOLL CO2 Total 29 22 - 29 POWERCHART MMOLL Creatinine 0.7 (L) 0.8 - 1.3 POWERCHART MGDL Glucose, 199 (H) 70 - 99 POWERCHART Fasting, S MGDL Calcium, Total, 9.3 8.6 - 10.3 POWERCHART S MGDL Sodium, S 140 135 - 145 POWERCHART MMOLL Potassium, S 4.6 3.6 - 5.2 POWERCHART MMOLL HXeGFR (MDRD) >60 >=60 POWERCHART [id number] eGFR >60 >=60 POWERCHART Black/ [id number] [place] Specimen (Source) Anatomical Collection Method Collection Time Re ceived Time Location / / Volume Laterality Blood 01/09/2015 11:11 AM CDT Atiya Felipe APRN, C.N.P. LAB BLOOD ADD-ON Performing Organization Address City/State/ZIP Code Phon e Number POWERCHART documented in this encounter Visit Diagnoses Not on filedocumented in this encounter
--- OUTSIDE RECORDS SUMMARY | 2022-06-23 22:46 | XMS_ITS | Encounter Summary ---
:1970 Author Organization [facility] Address [address] [place] [address] Care Team Providers Name Role Phone Unavailable Primary Care Provider Unavailable Encounter Details Date Type Department Care Team Description 08/01/2015 Hospital Encounter HX [facility] Amanda Felipe, Jakob PRLiss, C.N.P. [address] [phone] (Wo rk) Social History [...] - - Height 169 cm (5' 6.54) 08/01/2015 3:23 PM WORK STATION SUPPORT SPECIALIST Body Mass Index - - documented in [...] 0 03/09/201001/13 documented as of this encounter Plan of Treatment Upcoming Encounters Date Type Specialty Care Team Description 06/26/2022 Appointment Neurology Preet Landeros M.D . [address] [place] [phone] Bria Suh APRN, C.N.P., M.S.N. [address] [place] [phone] 07/25/2022 Appointment Radiology Preet Landeros M.D . [address] [place] [phone] (Wo rk) documented as of this encounter Procedures Procedure Name Priority Date/Time Associated Comments Diagnosis ZZPATHOLOGY NON-STILL TENDER Routine 08/01/2015 9:04 AM Re sults for this CYTOLOGY WORK STATION SUPPORT SPECIALIST procedure are i n the results section. documented in this encounter Results ZZPATHOLOGY NON-STILL TENDER CYTOLOGY (08/01/2015 9:04 AM WORK STATION SUPPORT SPECIALIST) Specimen (Source) Anatomical Collection Method Collection Time Re ceived Time Location / / Volume Laterality 08/01/2015 9:04 AM WORK STATION SUPPORT SPECIALIST Narrative [facility] - 08/02/2015 11:26 AM WORK STATION SUPPORT SPECIALIST [facility] [place] [address] [place] [address] ??[phone] Patient Name: CALI MURPHY Patient ID #: [id number] Collected: 08/01/2015 Address: [facility]/Zip: [address] [place] [address] ??[phone] Received: Reported: 08/02/2015 08/02/2015 Soc. Sec. #: ?/Age/Sex 1970 (Age: 45) ??M Physician(s): LENARD FELIPE CNP Copy To: ? [facility] ??[phone] [facility], ??[place] ??[phone] CYTOPATHOLOGY NON-STILL TENDER REPORT FINAL CYTOLOGIC DIAGNOSIS Urine-VOIDED: NEGATIVE FOR MALIGNANCY SATISFACTORY SPECIMEN FOR EVALUATION. HYPOCELLULAR SPECIMEN. Electronically Signed By [facility]/08/02/2015 [facility] SPECIMEN(S) RECEIVED: Urine-VOIDED CLINICAL HISTORY: GROSS DESCRIPTION: 2 CYTOSPINS PREPARED FROM 70 ML OF CLOUD Y YELLOW FLUID. Amanda Felipe APRN, C.N.P. LAB PATHOLOGY/CYTOLOGY ORD ERABLES Performing Organization Address City/State/ZIP Code Phon e Number [facility] documented in this encounter Visit Diagnoses Not on filedocumented in this encounter Additional Health Concerns Assessment Noted Time PHQ-9 Depression Total Score: 4 04/20/2015 2:22 PM CDT documented as of this encounter
--- OUTSIDE RECORDS SUMMARY | 2022-06-23 22:46 | XMS_ITS | Encounter Summary ---
:1970 Author Organization [facility] Address [address] [place] [address] Care Team Providers Name Role Phone Unavailable Primary Care Provider Unavailable Encounter Details Date Type Department Care Team Description 10/26/2015 Hospital Encounter [facility]X [facility] Amanda Barrios, Jakob PRLiss, C.N.P. [address] [phone] (Wo rk) Social History [...] - - Height 169 cm (5' 6.54) 10/26/2015 9:13 AM BRAND AMBASSADOR PROMOTIONAL MODEL Body Mass Index - - documented in [...] Appointment Neurology Preet Landeros M.D . [address] [place] [phone] Bria Suh APRN, C.N.P., M.S.N. [address] [place] [phone] 07/25/2022 Appointment Radiology Preet Landeros M.D . [address] [place] [phone] (Wo rk) documented as of this encounter Procedures Procedure Name Priority Date/Time Associated Diagnosis Comme nts HEMOGLOBIN A1C, B Routine 10/26/2015 9:31 AM Resu lts for this BRAND AMBASSADOR PROMOTIONAL MODEL procedure are i n the results section. documented in this encounter Results (ABNORMAL) Hemoglobin A1c (10/26/2015 9:31 AM BRAND AMBASSADOR PROMOTIONAL MODEL) P athologist Signature Hemoglobin A1c, 9.4 (H) <=5.6 A1C POWERCHART B Specimen (Source) Anatomical Collection Method Collection Time Re ceived Time Location / / Volume Laterality Blood 10/26/2015 9:31 AM BRAND AMBASSADOR PROMOTIONAL MODEL Amanda Barrios APRN, C.N.P. LAB BLOOD ADD-ON Performing Organization Address City/State/ZIP Code Phon e Number POWERCHART documented in this encounter Visit Diagnoses Not on filedocumented in this encounter Additional Health Concerns Assessment Noted Time PHQ-9 Depression Total Score: 4 04/20/2015 2:22 PM CDT documented as of this encounter
--- OUTSIDE RECORDS SUMMARY | 2022-06-23 22:46 | XMS_ITS | Encounter Summary ---
:1970 Author Organization [facility] Address [address] [place] [address] Care Team Providers Name Role Phone Unavailable Primary Care Provider Unavailable Encounter Details Date Type Department Care Team Description 12/07/2015 - 12/08/2015 Hospital Encounter HX RST FIDEL 6C Social History Tobacco Use Types Packs/Day Years [...] or relatives? How often do you attend evangelical or More than 4 times per year 06/02/2022 roman catholic services? Do you belong to any clubs or Yes 06/02/2022 organizations such as evangelical groups, unions, fraternal or athletic groups, or [...] Sign Reading Time Taken Comments Blood Pressure 143/81 12/08/2015 8:12 AM CDT Pulse 94 12/08/2015 8:12 AM CDT Temperature - - Respiratory Rate 12 12/08/2015 8:12 AM CDT Oxygen Saturation - - Inhaled Oxygen - - Concentration Weight 151 kg (333 lb 8.9 12/07/2015 10:29 Vital sig n result oz) AM CDT from CDM. Height 165 cm (5' 4.96) 12/07/2015 10:29 Vital sign result AM CDT from CDM. Body Mass Index 55.57 12/07/2015 10:29 AM CDT documented in this encounter Medications [...] mouth as needed. multivitamin capsule daily. 0 2010 0505/2021 documented as of this encounter Plan of Treatment Upcoming Encounters Date Type Specialty Care Team Description 06/26/2022 Appointment Neurology Preet Landeros M.D . [address] [place] [phone] Bria Suh APRN, CBonNBonP., M.S.N. [address] [place] [phone] 07/25/2022 Appointment Radiology Preet Landeros M.D . [address] [place], [place] [phone] (Wo rk) documented as of this encounter Procedures Procedure Name Priority Date/Time Associated Comments Diagnosis ELECTROLYTE (CHEM 4) Routine 12/08/2015 5:22 AM R esults for this PANEL, S/P CDT procedure are i n the results section. GLUCOSE POCT, B Routine 12/08/2015 5:21 AM Result s for this CDT procedure are i n the results section. CBC WITHOUT Routine 12/08/2015 5:21 AM Results f or this DIFFERENTIAL, B CDT procedure ar e in the results section. GLUCOSE POCT, B Routine 12/07/2015 10:18 Results for this PM CDT procedure are i n the results section. GLUCOSE POCT, B Routine 12/07/2015 5:45 PM Result s for this CDT procedure are i n the results section. GLUCOSE POCT, B Routine 12/07/2015 2:46 PM Result s for this CDT procedure are i n the results section. CT BIOPSY OTHER Routine 12/07/2015 1:58 PM Result s for this CDT procedure are i n the results section. CT ABLATION PROCEDURE Routine 12/07/2015 1:32 PM Results for this CDT procedure are i n the results section. CT ABDOMEN WITHOUT Routine 12/07/2015 1:32 PM Res ults for this AND WITH IV CONTRAST CDT procedu re are in the results section. CYTOLOGY Routine 12/07/2015 1:11 PM Results f or this CDT procedure are i n the results section. GLUCOSE POCT, B Routine 12/07/2015 11:47 Results for this AM CDT procedure are i n the results section. GLUCOSE POCT, B Routine 12/07/2015 11:39 Results for this AM CDT procedure are i n the results section. PROTHROMBIN TIME Routine 12/07/2015 6:36 AM Resul ts for this (PT), P CDT procedure are i n the results section. GLUCOSE POCT, B Routine 12/07/2015 6:00 AM Result s for this CDT procedure are i n the results section. documented in this encounter Results (ABNORMAL) Electrolyte (Chem 4) Panel (12/08/2015 5:22 AM CDT) [facility] Method Time Signature Sodium, S 137 135 - 145 [facility] MMOL/L [facility] Potassium, S 4.6 3.6 - 5.2 [facility] MMOL/L LABORATORIES [facility] eGFR-Black/Afri >60 >60 [facility] can Portuguese ML/MIN/BS LABORATORIES - A [facility] BUN (Blood Urea 16 8 - 24 [facility] Nitrogen), S MG/DL [facility] Chloride, S 96 (L) 98 - 107 [facility] MMOL/L [facility] HX Bicarbonate, 28 22 - 29 [facility] P/S MMOL/L [facility] Creatinine 1.1 0.8 - 1.3 [facility] MG/DL [facility] - [facility] eGFR >60 >60 [facility] Non-Black/Afric ML/MIN/BS LABORATORIES - an Portuguese A [facility] Anion Gap 13 7 - 15 [facility] [place] Glucose, S 200 (H) 70 - 140 [facility] MG/DL [facility] Specimen Anatomical Collection Method Collection Time Receive d Time (Source) Location / / Volume Laterality 12/08/2015 5:22 AM 6 5:22 CDT AM CDT Sarita Mohr M.D. LAB BLOOD ADD-ON Performing Organization Address City/State/ZIP Code Phon e Number [facility] LABORATORIES - [address] [place], [place] [address] [facility] (ABNORMAL) Glucose, POCT (12/08/2015 5:21 AM CDT) [facility] Method Time Signature Last Intake > 4 hours [facility] [place] Glucose, POCT, 194 (H) 70 - 140 [facility] B MG/DL LABORATORIES - [facility] Comment: Glucose results collected from venous ca theters may be ? falsely elevated. ? Sample Site, Blood Gas, POCT Venline M [facility] Specimen Anatomical Collection Method Collection Time Receive d Time (Source) Location / / Volume Laterality 12/08/2015 5:21 AM 6 5:21 CDT AM CDT Historical Provider LAB POCT ORDERABLES-MANUAL Performing Organization Address City/State/[facility] Code Phon e Number [facility] LABORATORIES - [address] [place], [place] [address] [facility] (ABNORMAL) CBC without Differential (12/08/2015 5:21 AM CDT) [facility] gist Method Time Signature Hemoglobin 12.5 (L) 13.5 - [facility] 17.5 G/DL [facility] Hematocrit 38.8 38.8 - [facility] 50.0 % [facility] Leukocytes 16.1 (H) 3.5 - [facility] 10.5 LABORATORIES - X10(9)/L [facility] Erythrocytes 4.91 4.32 - [facility] 5.72 LABORATORIES - X10(12)/L [facility] MCV 79.0 (L) 81.2 - [facility] 95.1 FL [facility] RBC Distrib 15.3 11.8 - [facility] Width 15.6 % [facility] Platelet Count 261 150 - 450 [facility] X10(9)/L [facility] Specimen Anatomical Collection Method Collection Time Receive d Time (Source) Location / / Volume Laterality 12/08/2015 5:21 AM 6 5:21 CDT AM CDT Vidit Mohr M.D. LAB BLOOD ADD-ON Performing Organization Address City/[facility] Phon e Number [facility] LABORATORIES - [address] [place], [place] [address] [facility] (ABNORMAL) Glucose, POCT (12/07/2015 10:18 PM CDT) [facility] Method Time Signature Last Intake 2-3 hours [facility] [place] Glucose, 282 (H) 70 - 140 [facility] POCT, B MG/DL LABORATORIES - [facility] Sample Site, Capillary [facility] Blood Gas, LABORATORIES - POCT [facility] Specimen Anatomical Collection Method Collection Time Receive d Time (Source) Location / / Volume Laterality 12/07/2015 10:18 12/07/2015 PM CDT 10:18 PM CDT Historical Provider LAB POCT ORDERABLES-MANUAL Performing Organization Address City/[facility] Code Phon e Number [facility] LABORATORIES - [address] [place], [place] [address] [facility] (ABNORMAL) Glucose, POCT (12/07/2015 5:45 PM CDT) [facility] Method Time Signature Glucose, 233 (H) 70 - 140 [facility] POCT, B MG/DL LABORATORIES - [facility] Sample Site, Capillary [facility] Blood Gas, LABORATORIES - POCT [facility] Last Intake > 4 hours [facility] [place] Specimen Anatomical Collection Method Collection Time Receive d Time (Source) Location / / Volume Laterality 12/07/2015 5:45 PM 6 5:45 CDT PM CDT Historical Provider LAB POCT ORDERABLES-MANUAL Performing Organization Address City/[facility] Phon e Number [facility]OR[facility]IES - [address] [place], [place] [address] [facility] (ABNORMAL) Glucose, POCT (12/07/2015 2:46 PM CDT) [facility] gist Method Time Signature Glucose, 147 (H) 70 - 140 [facility] POCT, B MG/DL LABORATORIES - [facility] Sample Site, Capillary [facility] Blood Gas, LABORATORIES - POCT [facility] Specimen Anatomical Collection Method Collection Time Receive d Time (Source) Location / / Volume Laterality 12/07/2015 2:46 PM 6 2:46 CDT PM CDT Historical Provider LAB POCT ORDERABLES-MANUAL Performing Organization Address City/State/ZIP Code Phon e Number [facility] LABORATORIES - [address] [place], [place] [address] [facility] [address] Biopsy Other (12/07/2015 1:58 PM CDT) Anatomical Region Laterality Modality Abdomen, Pelvis N/A Computed Tomography Specimen (Source) Anatomical Collection Method Collection Time Re ceived Time Location / / Volume Laterality 12/07/2015 1:58 PM CDT Narrative 12/07/2015 4:45 PM CDT 07-Dec-2015 13:58:00 ??Exam: CT Biopsy Indications: Left renal mass ORIGINAL REPORT - 07-Dec-2015 16:45:00 CT-guided cryoablation of a 3.0 cm mass in the mid left kidney posteriorly. The patient was brought to the CT suite and placed under general anesthesia. Using CT guidance, total 4 Perc24 2.4mm OD cryoprobes were placed into this left renal mass. [id number]-eargn core biopsies were obtained. The tumor was then frozen for 10 minutes, thawed for 5 minutes, and frozen again for [address] monitoring showed an ice ball which encompassed the index mass. The probes were then warmed and withdrawn. No immediate complications. CT the abdomen without with intravenous contrast following ablation shows a generous ablation defect encompassing the left renal mass present on outside MRI 11/02/2015. Very small amount of blood in the immediately adjacent retroperitoneum. F atty infiltration of the liver. Next PREPROCEDURE: ??Patient seen, evaluated, and history reviewed. Discussed risks, benefits, alternatives for procedure, and obtained informed consent. Patient understands information and questions answere d. Immediately prior to starting the pro cedure, in the presence of the assisting personnel, procedural pause was conducted to verify correct patient identity and verification of procedure to be performe d, and as applicable, correct side and s ite, correct patient position, availability of implants, special equipment, or special requirements, and all image and specimen identification data. The roles and responsibilities of care team members, residents, and fellows were discussed. Sedation provided by DATA MANAGEMENT ANALYST. Electronically signed by: ?? Zach Fulton ??[place] [phone] 07-Dec-2015 16:4 5 ?Dennise Huff MD [phone] 07-Dec-2015 16:45 Procedure Note Natalio Fulton M.D. - 12/11/2017Forma tting of this note might be different from the original. 07-Dec-2015 13:58:00 Exam: CT Biopsy Indications: Left renal mass ORIGINAL REPORT - 07-Dec-2015 16:45:00 CT-guided cryoablation of a 3.0 cm mass in the mid left kidney posteriorly. The patient was brought to the CT suite and placed under general anesthesia. Using CT guidance, total 4 Perc24 2.4mm OD cryoprobes were placed into this left renal mass. [id number]-yjhab core biopsies were obtained. The tumor was then frozen for 10 minutes, thawed for 5 minutes, and frozen again for [address] monitoring showed an ice ball which encompassed the index mass. The probes were then warmed and withdrawn. No immediate complications. CT the abdomen without with intravenous contrast following ablation shows a generous ablation defect encompassing the left renal mass present on outside MRI 11/02/2015. Very small amount of blood in the immediately adjacent retroperitoneum. Fatty infiltra tion of the liver. Next PREPROCEDURE: Patient seen, evaluated, a nd history reviewed. Discussed risks, benefits, alternatives for procedure, and obtained informed consent. Patient understands information and questions answered. Immediately prior to starting the proced ure, in the presence of the assisting personnel, procedural pause was conducted to verify correct patient identity and verification of procedure to be performed, and as applicable, correct side and site, corre ct patient position, availability of implants, special equipment, or special requirements, and all image and specimen identification data. The roles and responsibilities of care team members, residents, and fellows were dis cussed. Sedation provided by DATA MANAGEMENT ANALYST. Electronically signed by: Zach Fulton M.D. [phone] 07-Dec-2015 16:45 Dennise Huff MD [phone] 07-Dec-2015 16:45 Josef Lora M.D. IMG CT PROCEDURES CT Abdomen without and with IV Contrast (12/07/2015 1:32 PM CDT) Anatomical Region Laterality Modality Abdomen N/A Computed Tomography Specimen (Source) Anatomical Collection Method Collection Time Re ceived Time Location / / Volume Laterality 12/07/2015 1:32 PM CDT Narrative 12/07/2015 4:45 PM CDT 07-Dec-2015 13:32:00 ??Exam: CT ABDOMEN wo&w Indications: Left renal mass ORIGINAL REPORT - 07-Dec-2015 16:45:00 CT-guided cryoablation of a 3.0 cm mass in the mid left kidney posteriorly. The patient was brought to the CT suite and placed under general anesthesia. Using CT guidance, total 4 Perc24 2.4mm OD cryoprobes were placed into this left renal mass. [id number]-djlux core biopsies were obtained. The tumor was then frozen for 10 minutes, thawed for 5 minutes, and frozen again for [address] monitoring showed an ice ball which encompassed the index mass. The probes were then warmed and withdrawn. No immediate complications. CT the abdomen without with intravenous contrast following ablation shows a generous ablation defect encompassing the left renal mass present on outside MRI 11/02/2015. Very small amount of blood in the immediately adjacent retroperitoneum. F atty infiltration of the liver. Next PREPROCEDURE: ??Patient seen, evaluated, and history reviewed. Discussed risks, benefits, alternatives for procedure, and obtained informed consent. Patient understands information and questions answere d. Immediately prior to starting the pro cedure, in the presence of the assisting personnel, procedural pause was conducted to verify correct patient identity and verification of procedure to be performe d, and as applicable, correct side and s ite, correct patient position, availability of implants, special equipment, or special requirements, and all image and specimen identification data. The roles and responsibilities of care team members, residents, and fellows were discussed. Sedation provided by DATA MANAGEMENT ANALYST. Electronically signed by: ?? Zach Fulton ??[place] [phone] 07-Dec-2015 16:4 5 ?Dennise Huff MD [phone] 07-Dec-2015 16:45 Procedure Note Natalio Fulton M.D. - 12/11/2017Forma tting of this note might be different from the original. 07-Dec-2015 13:32:00 Exam: CT ABDOMEN wo &w Indications: Left renal mass ORIGINAL REPORT - 07-Dec-2015 16:45:00 CT-guided cryoablation of a 3.0 cm mass in the mid left kidney posteriorly. The patient was brought to the CT suite and placed under general anesthesia. Using CT guidance, total 4 Perc24 2.4mm OD cryoprobes were placed into this left renal mass. Avpbi49-vyevc core biopsies were obtained. The tumor was then frozen for 10 minutes, thawed for 5 minutes, and frozen again for [address] monitoring showed an ice ball which encompassed the index mass. The probes were then warmed and withdrawn. No immediate complications. CT the abdomen without with intravenous contrast following ablation shows a generous ablation defect encompassing the left renal mass present on outside MRI 11/02/2015. Very small amount of blood in the immediately adjacent retroperitoneum. Fatty infiltra tion of the liver. Next PREPROCEDURE: Patient seen, evaluated, a nd history reviewed. Discussed risks, benefits, alternatives for procedure, and obtained informed consent. Patient understands information and questions answered. Immediately prior to starting the proced ure, in the presence of the assisting personnel, procedural pause was conducted to verify correct patient identity and verification of procedure to be performed, and as applicable, correct side and site, corre ct patient position, availability of implants, special equipment, or special requirements, and all image and specimen identification data. The roles and responsibilities of care team members, residents, and fellows were dis cussed. Sedation provided by DATA MANAGEMENT ANALYST. Electronically signed by: Zach Fulton M.D. [phone] 07-Dec-2015 16:45 Dennise Huff MD [phone] 07-Dec-2015 16:45 Josef Lora M.D. IMG CT PROCEDURES CT Ablation Procedure (12/07/2015 1:32 PM CDT) Anatomical Region Laterality Modality Abdomen, Pelvis Computed Tomography Specimen (Source) Anatomical Collection Method Collection Time Re ceived Time Location / / Volume Laterality 12/07/2015 1:32 PM CDT Narrative 12/07/2015 4:45 PM CDT 07-Dec-2015 13:32:00 ??Exam: CT Ablation Procedure Indications: Left renal mass ORIGINAL REPORT - 07-Dec-2015 16:45:00 CT-guided cryoablation of a 3.0 cm mass in the mid left kidney posteriorly. The patient was brought to the CT suite and placed under general anesthesia. Using CT guidance, total 4 Perc24 2.4mm OD cryoprobes were placed into this left renal mass. [id number]-ywzrn core biopsies were obtained. The tumor was then frozen for 10 minutes, thawed for 5 minutes, and frozen again for [address] monitoring showed an ice ball which encompassed the index mass. The probes were then warmed and withdrawn. No immediate complications. CT the abdomen without with intravenous contrast following ablation shows a generous ablation defect encompassing the left renal mass present on outside MRI 11/02/2015. Very small amount of blood in the immediately adjacent retroperitoneum. F atty infiltration of the liver. Next PREPROCEDURE: ??Patient seen, evaluated, and history reviewed. Discussed risks, benefits, alternatives for procedure, and obtained informed consent. Patient understands information and questions answere d. Immediately prior to starting the pro cedure, in the presence of the assisting personnel, procedural pause was conducted to verify correct patient identity and verification of procedure to be performe d, and as applicable, correct side and s ite, correct patient position, availability of implants, special equipment, or special requirements, and all image and specimen identification data. The roles and responsibilities of care team members, residents, and fellows were discussed. Sedation provided by DATA MANAGEMENT ANALYST. Electronically signed by: ?? Zach Fulton ??[place] [phone] 07-Dec-2015 16:4 5 ?Dennise Huff MD [phone] 07-Dec-2015 16:45 Procedure Note Natalio Fulton M.D. - 12/11/2017Forma tting of this note might be different from the original. 07-Dec-2015 13:32:00 Exam: CT Ablation P rocedure Indications: Left renal mass ORIGINAL REPORT - 07-Dec-2015 16:45:00 CT-guided cryoablation of a 3.0 cm mass in the mid left kidney posteriorly. The patient was brought to the CT suite and placed under general anesthesia. Using CT guidance, total 4 Perc24 2.4mm OD cryoprobes were placed into this left renal mass. [id number]-vqcpw core biopsies were obtained. The tumor was then frozen for 10 minutes, thawed for 5 minutes, and frozen again for [address] monitoring showed an ice ball which encompassed the index mass. The probes were then warmed and withdrawn. No immediate complications. CT the abdomen without with intravenous contrast following ablation shows a generous ablation defect encompassing the left renal mass present on outside MRI 11/02/2015. Very small amount of blood in the immediately adjacent retroperitoneum. Fatty infiltra tion of the liver. Next PREPROCEDURE: Patient seen, evaluated, a nd history reviewed. Discussed risks, benefits, alternatives for procedure, and obtained informed consent. Patient understands information and questions answered. Immediately prior to starting the proced ure, in the presence of the assisting personnel, procedural pause was conducted to verify correct patient identity and verification of procedure to be performed, and as applicable, correct side and site, corre ct patient position, availability of implants, special equipment, or special requirements, and all image and specimen identification data. The roles and responsibilities of care team members, residents, and fellows were dis cussed. Sedation provided by DATA MANAGEMENT ANALYST. Electronically signed by: Zach Fulton M.D. [phone] 07-Dec-2015 16:45 Dennise Huff MD [phone] 07-Dec-2015 16:45 Josef Lora M.D. IMG CT PROCEDURES Cytology (12/07/2015 1:11 PM CDT) Specimen Anatomical Collection Method Collection Time Receive d Time (Source) Location / / Volume Laterality 12/07/2015 1:11 PM 6 1:11 CDT PM CDT Narrative [facility] - 12/07/2015 1:11 PM CDT ??12/07/2015 Cytology Fine Needle Aspir ate ?? ([id number]) ? Requested By: ??Josef Lora M.D. ?? [phone] ? Additional Physicians: ??Sean hodges M.D. [phone] ? SPECIMEN DESCRIPTION: A. ??Kidney, Left, FNA/Biopsy: ??Receiv ed 6 smears ??JH 12/07/15 ? Additionally, received i n formalin labeled with the patient's name and medical record nury r [id number] and labeled as kidney, left mass are three paredes-red s oft tissue cores and fragments, the cores ranging from 0.3-1 .3 cm in length. The specimens are submitted en toto in judie ette A1. Grossed by [facility]. ?DIAGNOSIS: A. ??Kidney, Left, FNA/Biopsy (smears a nd tissue): ??Positive for malignancy. Grade 2 renal cell carcinom a, clear cell type. ?? Seen in consultation with Dr. Harlan Chao. ? 12/11/2015 17:16 Interpreted by: ??Clarice Carroll M.D. [phone] Report electronically signed by Clarice Carroll M.D. ?? Transcribed by: gerard ??12/07/2015 13:48:5 1 ? Procedure Note 12/06/2017 12/07/2015 Cytology Fine Needle Aspirat e ([id number]) Requested By: Josef Lora M.D. [phone] Additional Physicians: Sean Paulson M.D. [id number] SPECIMEN DESCRIPTION: A. Kidney, Left, FNA/Biopsy: Received 6 smears JH 12/07/15 Additionally, received in formalin labe led with the patient's name and medical record petronae r [id number] and labeled as kidney, left mass are three paredes-red s oft tissue cores and fragments, the cores ranging from 0.3-1 .3 cm in length. The specimens are submitted en toto in judie ette A1. Grossed by NJS. DIAGNOSIS: A. Kidney, Left, FNA/Biopsy (smears and tissue): Positive for malignancy. Grade 2 renal cell carcinom a, clear cell type. Seen in consultation with Dr. Harlan Chao. 12/11/2015 17:16 Interpreted by: Clarice Carroll M.D. [phone] Report electronically signed by Clarice Carroll M.D. Transcribed by: elaine 12/07/2015 13:48:51 Josef Lora M.D. LAB PATHOLOGY/CYTOLOGY ORDER CRISTIANE Performing Organization Address City/[facility]/ZIP Code Phon e Number [facility]IES - [address] [place] [address] [facility] (ABNORMAL) Glucose, POCT (12/07/2015 11:47 AM CDT) [facility] gist Method Time Signature Glucose, 158 (H) 70 - 140 [facility] POCT, B MG/DL LABORATORIES - [facility] Sample Site, Capillary [facility] Blood Gas, LABORATORIES - POCT [facility] Specimen Anatomical Collection Method Collection Time Receive d Time (Source) Location / / Volume Laterality 12/07/2015 11:47 12/07/2015 AM CDT 11:47 AM CDT Historical Provider LAB POCT ORDERABLES-MANUAL Performing Organization Address City/[facility]/[place] [facility] [place] Number [facility] - [address] [place] [address] [facility] HOSPITAL Glucose, POCT (12/07/2015 11:39 AM CDT) [facility] Method Time Signature Glucose, 76 70 - 140 [facility] POCT, B MG/DL LABORATORIES - [facility] Sample Site, Capillary [facility] Blood Gas, LABORATORIES - POCT [facility] Specimen Anatomical Collection Method Collection Time Receive d Time (Source) Location / / Volume Laterality 12/07/2015 11:39 12/07/2015 AM CDT 11:39 AM CDT Historical Provider LAB POCT ORDERABLES-MANUAL Performing Organization Address City/State/ZIP Code Phon e Number [facility] LABORATORIES - [address] [place], [place] [address] [facility] PT (Prothrombin Time) with INR (12/07/2015 6:36 AM CDT) [facility] Method Time Signature Prothrombin 11.6 9.5 - 13.8 [facility] Time, P SEC [facility]IES - [facility] INR 1.0 0.8 - 1.2 [facility] LABORATORIES - [facility] Specimen Anatomical Collection Method Collection Time Receive d Time (Source) Location / / Volume Laterality 12/07/2015 6:36 AM 6 6:36 CDT AM CDT Sean Paulson M.D. LAB BLOOD ADD-ON Performing Organization Address City/[facility]/ZIP Code Phon e Number [facility] LABORATORIES - [address] [place] [id number] [facility] (ABNORMAL) Glucose, POCT (12/07/2015 6:00 AM CDT) [facility] Method Time Signature Last Intake NPO [facility] - [facility] Glucose, 192 (H) 70 - 140 [facility] POCT, B MG/DL LAB[facility]ATORIES - [facility] Sample Site, Capillary [facility] Blood Gas, LABORATORIES - POCT [facility] Specimen Anatomical Collection Method Collection Time Receive d Time (Source) Location / / Volume Laterality 12/07/2015 6:00 AM 6 6:00 CDT AM CDT Historical Provider LAB POCT ORDERABLES-MANUAL Performing Organization Address City/[facility]/ZIP Code Phon e Number [facility] LABORATORIES - [address] [place], [place] [address] [facility] documented in this encounter Visit Diagnoses Not on filedocumented in this encounter Additional Health Concerns Assessment Noted Time PHQ-9 Depression Total Score: 4 04/20/2015 2:22 PM CDT documented as of this encounter
--- OUTSIDE RECORDS SUMMARY | 2022-06-23 22:46 | XMS_ITS | Encounter Summary ---
:1970 Author Organization [facility] Address [address] [place] [address] Care Team Providers Name Role Phone Unavailable Primary Care Provider Unavailable Encounter Details Date Type Department Care Team Description 12/04/2015 Hospital Encounter HX [facility]ILY[facility] MyrMayra andres, UPPER INSPECTOR, C.N.P. [address] [address] (Wo rk) Social History Tobacco [...] Sign Reading Time Taken Comments Blood Pressure 122/74 12/04/2015 2:02 PM CDT Pulse 72 12/04/2015 2:02 PM CDT Temperature - - Respiratory Rate 20 12/04/2015 2:02 PM CDT Oxygen Saturation - - Inhaled Oxygen Concentration - - Weight 152 kg (335 lb 1.6 oz) 12/04/2015 2:02 PM CDT Height 169 cm (5' 6.54) 12/04/2015 2:02 PM CDT Body Mass Index 53.22 12/04/2015 2:02 PM CDT documented in this encounter Medications [...] 0 03/09/201001/13 documented as of this encounter Consult Notes Atiya Felipe, UPPER INSPECTOR, C.N.P. - 12/04/2015 2:21 PM CDT MERLYN CHIEF COMPLAINT/REASON FOR VISIT Pre-op Surgery date 12/07/15. CT ablation on kidney on left side. HISTORY OF PRESENT ILLNESS Cali is being seen at the request of his surgeon for medical evaluation prior to surgery. He is scheduled for left renal mass ablation at [facility] on December 07, 2015. He has diabetyes type 2, uncontrolled. A1c on October 262015 was elevated at 9.4. He was started on Novlolog insulin 10 units before dinner. He has seen improvement in blood sugars. He has hypertension, well controlledon Diovan. No bleeding tendency or blood transfusions. 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 (05/29/2011), Appendectomy (10/30/1984). SOCIAL HISTORY Date Time: 12/04/2015 14:02 Tobacco: Smoking Status: Former smoker Exposure: Other: Quit fall Alcohol: Use: No Results Found Recreational Drugs: Use: None Type: No Results Found FAMILY HISTORY Brother:Positive: Diabetes mellitus HEALTH MAINTENANCE Due for dilated eye exam. SYSTEMS REVIEW GENERAL: No weight gain, no weight loss, no fever in past month, no chills, no sweats, no fatigue EENT: No blurred vision, no double vision, no eye pain, no sinus problems, no hoarseness, no difficulty swallowing, no mouth sores, no diminished hearing, no ringing in ears, no enlarged glands PULMONARY: No shortness of breath, no cough, no wheezing, no sputum, no hemoptysis CARDIAC: No valve problems, no chest pain, no chest pressure, no rapid beating, no irregular beating, no dependent edema, pain in calves or with walking, no difficulty moving arms and legs GI: No heartburn, no nausea, no vomiting, no stomach trouble, no constipation, no diarrhea, no blood in BM, no change in BM : No penile discharge, no burning/pain with urination, no difficulty starting stream, no difficulty emptying bladder, no excessive urination MUSCULOSKELETAL: No joint pain, no joint swelling, no joint stiffness, no muscle pain, no muscle stiffness, no back pain, no back stiffness SKIN: No skin rashes, no skin sores, no change in moles NEURO: No significant headaches, no slurred speech, no seizures, no dizziness, no loss of consciousness VITAL SIGNS T: 36.0 ??C (Core) HR: 72 RR: 20 BP: 122 / 74 SpO2: 97% HT: 169 cm WT: 152 kg BMI: 53.22 PHYSICAL EXAMINATION GENERAL: In general, the patient is a pleasant male who appears to be stated age. SKIN: Without lesion. EYES: PERRLA, EOMI. Conjunctiva and lids normal. ENT: Tympanic membranes clear bilaterally. Nasal mucosa without erythema or congestion. Mouth without erythema or exudate. LYMPH NODES: Neck: Supple, without adenopathy, no thyromegaly. Carotid pulses are equal bilaterally. THYROID: No thyromegaly. PERIPHERAL VESSELS: Femoral, dorsal, pedal and posterior tibial pulses are equal. HEART: Regular rate and rhythm without murmur. LUNGS: Clear to auscultation, there is good inspiratory effort. ABDOMEN: Soft, nontender, no palpable mass, no hepatosplenomegaly. SPINE: Back straight without CVA tenderness. No cervical, thoracic or lumbar tenderness. JOINTS: Normal range of motion. EXTREMITIES: Warm, dry, no cyanosis or peripheral edema. MENTAL: Alert and oriented times three. Grossly nonfocal. NEUROLOGIC: Reflexes are +2 and symmetrical. LAB RESULTS Sodium Lvl 137 mmol/L 12/04/2015 14:28 CDT (Low) Potassium Lvl 4.0 mmol/L 12/04/2015 14:28 CDT CO2 26 mmol/L 12/04/2015 14:28 CDT Glucose Lvl 185 mg/dL 12/04/2015 14:28 CDT (High) Creatinine 0.9 mg/dL 12/04/2015 14:28 CDT EGFR (MDRD) >60 mL/min/1.73m2 12/04/2015 14:28 CDT BUN 11 mg/dL 12/04/2015 14:28 CDT Calcium Ionized 4.8 mg/dL 12/04/2015 14:28 CDT Hgb 13.4 g/dL 12/04/2015 14:28 CDT (Low) Hct 40.7 % 12/04/2015 14:28 CDT WBC 17.7 x10(9)/L 12/04/2015 14:28 CDT (High) RBC 5.21 x10(12)/L 12/04/2015 14:28 CDT MCV 78.1 fL 12/04/2015 14:28 CDT (Low) RDW 15.0 % 12/04/2015 14:28 CDT Platelet 324 x10(9)/L 12/04/2015 14:28 CDT Neutro Absolute 13.82 10(9)/L 12/04/2015 14:28 CDT (High) Lymph Absolute 2.50 x10(9)/L 12/04/2015 14:28 CDT [place] Absolute 1.08 x10(9)/L 12/04/2015 14:28 CDT (High) Eos Absolute 0.25 x10(9)/L 12/04/2015 14:28 CDT Baso Absolute 0.04 x10(9)/L 12/04/2015 14:28 CDT IMPRESSION/REPORT/PLAN Carcinoma Renal Cell L Ordered: OV Consult Level 3 - 16135 - 40 min DM2 Uncontrolled Improving, added Novolog insulin before dinner. Due for A1c in January. Exam Medical Preanesthetic (JACKELIN ZULETA) Patient's active problems diagnostically and therapeutically optimized for planned procedure. Preanesthesia screening for obstructive sleep apnea completed. He has been diagnosed with mild sleep apnea. He does not use a CPAP machine. Do not use any aspirin, nonsteroidal antiinflammatory medications or fish oil prior to surgery. NPOafter midnight the night before surgery. Restart all medications after surgery. Appropriate paperwork will be completed and faxed to the hospital. All questions were answered. Class [place] [employer] 2. Ordered: Basic Metabolic Panel Point of Care CBC (includes Auto Differential) OV Consult Level 3 - 41895 - 40 min Hypertension (HTN) NOS Well controlled on Diovan, no change in medication. 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 - 12/04/2015 2:14 PM CDT Ambulatory Patient Education The following [...] immune system to help fight cancer. ?? [phone] [facility], [address] [place] [address]. All rights reserved. This information is not intended as a substitute for professional medical care. Always follow your healthcare professional's instructions. This document has images extracted. Please consider using [employer] for all your patient education needs. Source: [facility] POWERCHART Document Id: [id number] documented in this encounter Miscellaneous Notes Miscellaneous - Atiya Felipe APRN, C.N.P. - 12/04/2015 2:14 PM CDT Ambulatory Patient Summary [address] [id number] Visit Information Name: PIYUSHCALI [facility] Number: [id number] Current Date: 12/04/2015 14:14:10 Physicians Attending Provider: ATIYA FELIPE APRN GRAIN ELEVATOR AGENT Primary Care Provider: ATIYA FELIPE APRN [facility] PIYUSH CALIJeanie LU has been given the following list [...] nasal (fluticasone 50 mcg/inh nasal spray) 2 Comstock(s), Nostrils(Both), once a day glimepiride (glimepiride 4 [...] the Following Medications: Medication list as of 12-04-15 14:14 Attention: If you have any medications at [...] Signed By: ATIYA FELIPE APRN, CNP Signed On:04-DEC-2015 14:13:26 Your Allergies & Intolerances Substance Reaction Symptoms Category Comments lisinopril Cough Drug Your Problem List Problem Status Onset Comments Morbid Obesity (BMI > 40) (V85.4) Active Hernia, ventral, unspecified Active Psoriasis Active 01/26/2013 Hypertension (HTN) NOS Active Eczema NOS Active Hyperlipidemia NOS 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 ?? [phone] [facility], [address] [place] [address], [place] [address]. All rights reserved. This information is not [...] if you dont have one. Go to [email or web address] and click on Create Your Account. Then, follow the directions to complete the online form. Youll be asked for your [facility] number which you can find at the top of this document. Your Goals/Additional instructions: This document has images extracted. Please consider using [employer] for all your patient education needs. Source: [facility] POWERCHART Document Id: [id number] Miscellaneous - Atiya Felipe APRN, C.N.P. - 12/04/2015 2:14 PM CDT Ambulatory Discharge Medication List [address] [id number] Visit Information Name: CALI MURPHY [facility] Number: [id number] Visit Date: 12/04/2015 14:14:08 Attending Provider: ATIYA FELIPE APRN, CNP Primary Care Provider: ATIYA FELIPE APRN GRAIN ELEVATOR AGENT CALI MURPHY has been given the following [...] nasal (fluticasone 50 mcg/inh nasal spray) 2 Comstock(s), Nostrils(Both), once a day glimepiride (glimepiride 4 [...] the Following Medications: Medication list as of 12-04-15 14:14 Attention: If you have any medications at [...] emergency. Electronically Signed By: ATIYA FELIPE APRN GRAIN ELEVATOR AGENT Signed On:04-DEC-2015 14:13:26 Additional Information: [facility] Document Id: [id number] Mary Jane - Debo Tim LBonP.N. - 12/04/2015 2:05 PM CDT Obstructive Sleep Apnea Obstructive Sleep Apnea Entered On: 12/04/2015 14:05 CDT Performed On: 12/04/2015 14:05 CDT by DEBO TIM LPN TYSON Screening Known Obstructive Sleep Apnea : Patient diagnosed with TYSON; DOES NOT USE sleep machine TYSON Score : No qualifying data available. TYSON Results : No qualifying data available. DEBO TIM LPN - 12/04/2015 14:05 CDT Source: [facility]CloudbotCHART Document Id: [id number] CDT!5 Mary Jane - Debo Tim L.P.N. - 12/04/2015 2:02 PM CDT Adult Financial Service Professional Intake/History Adult Financial Service Professional Intake/History Entered On: 12/04/2015 14:05 CDT Performed On: 12/04/2015 14:02 CDT by DEBO TIM LPN Intake Chief Complaint : Pre-op Surgery date 12/07/15. CT ablation on kidney on left side. Temperature Core : 36.0 DegC(Converted to: 96.8 DegF) (LOW) Peripheral Pulse Rate : 72 /min Respiratory Rate : 20 /min Heart Rhythm : Regular Systolic Blood Pressure : 122 mmHg Diastolic Blood Pressure : 74 mmHg NIBP Mean : 90 mmHg BP Location : Left upper extremity Blood Pressure Cuff Size : Large SpO2 : 97 % Oxygen Therapy : Room air Height : 169 cm(Converted to: 5 ft 7 inch(es), 67 inch(es)) Actual Weight : 152 kg(Converted to: 335 lb 2 oz) Weight Source : Standing scale Dosing Weight Clinic : 152 kg Clinic BSA : 2.67 Body Mass Index : 53.22 kg/m2 GLENROY DEBO HERACLIO CHOUDHURY - 12/04/2015 14:02 CDT General Info Information Given By : Patient Preferred Communication Mode : Verbal Languages : Pashto Is Patient Female and 13-50 no hysterectomy : No DEBO TIM LPN - 12/04/2015 14:02 CDT Subjective Pain Symptoms : No DEBO TIM LPN - 12/04/2015 14:02 CDT Dependent Habits Exposure to Tobacco Smoke : Other: Quit fall Smoking Status : Former smoker Tobacco 2A : Yes Tobacco Use/Currently Using : No Tobacco Use/Last 30 Days : No Tobacco Use/Last 12 months : No Tobacco Last Use/Year : 2013 GLENROY DEBOJESUS PULLIAM LPN - 12/04/2015 14:02 CDT Caffeine Use Grid Caffeine Use : Current Type : Chocolate, Coffee, Soft drinks, Tea Frequency : Daily DEBO TIM LPN - 12/04/2015 14:02 CDT Recreational Drug Use Grid Drug Use : None DEBO TIM LPN - 12/04/2015 14:02 CDT Source: [employer] Document Id: [id number] CDT!43 documented in this encounter Plan of Treatment Upcoming Encounters Date Type Specialty Care Team Description 06/26/2022 Appointment Neurology Preet Landeros M.D . [address] [place] [phone] Bria Suh APRN, C.N.P., M.S.N. [address] [place] [phone] 07/25/2022 Appointment Radiology Preet Landeros M.D . [address] [place] [address] [phone] (Wo rk) documented as of this encounter Procedures Procedure Name Priority Date/Time Associated Diagnosis Comme nts AUTOMATED Routine 12/04/2015 2:28 PM Results f or this DIFFERENTIAL, B CDT procedure ar e in the results section. BASIC METABOLIC Routine 12/04/2015 2:28 PM Result s for this PANEL (BMP), POCT, CDT procedure are in B the results section. CBC WITH Routine 12/04/2015 2:28 PM Results f or this DIFFERENTIAL, B CDT procedure ar e in the results section. documented in this encounter Results (ABNORMAL) Automated Differential (12/04/2015 2:28 PM CDT) [facility] Method Time Signature Absolute 13.82 (H) 1.70 - POWERCHART Neutrophils 7.00 109L Lymphocytes 2.50 0.90 - POWERCHART 2.90 X109L Monocytes 1.08 (H) 0.30 - POWERCHART 0.90 X109L Eosinophils 0.25 0.05 - POWERCHART 0.50 X109L Absolute 0.04 0.00 - POWERCHART Basophil 0.30 X109L Specimen Anatomical Collection Method Collection Time Receive d Time (Source) Location / / Volume Laterality Blood 12/04/2015 2:28 PM 6 2:28 CDT PM CDT Atiya Felipe APRN, C.N.P. LAB BLOOD ADD-ON Performing Organization Address [facility] Phon e Number POWERCHART (ABNORMAL) CBC with Differential (12/04/2015 2:28 PM CDT) Analysis Performed At Patho logist Time Signature Leukocytes 17.7 (H) 3.5 - 10.5 POWERCHART X109L Erythrocytes 5.21 4.32 - POWERCHART 5.72 [id number] Hemoglobin 13.4 (L) 13.5 - POWERCHART 17.5 GDL Hematocrit 40.7 38.8 - POWERCHART 50.0 MCV 78.1 (L) 81.0 - POWERCHART 95.0 FL Platelet Count 324 150 - 450 POWERCHART X109L HX RDW 15.0 11.8 - POWERCHART 15.6 Specimen (Source) Anatomical Collection Method Collection Time Re ceived Time Location / / Volume Laterality Blood 12/04/2015 2:28 PM CDT Atiya Felipe APRN, C.N.P. LAB BLOOD ADD-ON Performing Organization Address [facility] Phon e Number POWERCHART BMP (Basic Metabolic Panel), POCT (12/04/2015 2:28 PM CDT) P athologist Signature Hematocrit 40.7 38.8 - 50.0 POWERCHART Specimen (Source) Anatomical Collection Method Collection Time Re ceived Time Location / / Volume Laterality Blood 12/04/2015 2:28 PM CDT Atiya Felipe APRN, C.N.P. LAB POCT ORDERABLES - ASIM CE Performing Organization Address [facility] Phon e Number POWERCHART documented in this encounter Visit Diagnoses Not on filedocumented in this encounter Additional Health Concerns Assessment Noted Time PHQ-9 Depression Total Score: 4 04/20/2015 2:22 PM CDT documented as of this encounter
--- OUTSIDE RECORDS SUMMARY | 2022-06-23 22:46 | XMS_ITS | Encounter Summary ---
:1970 Author Organization [facility] Address [address] [place] [address] Care Team Providers Name Role Phone Unavailable Primary Care Provider Unavailable Encounter Details Date Type Department Care Team Description 12/07/2015 Hospital Encounter HX NO MAPPING Provider, Historical Social History Tobacco Use Types Packs/Day Years [...] or relatives? How often do you attend druze or More than 4 times per year 06/02/2022 catholic services? Do you belong to any clubs or Yes 06/02/2022 organizations such as druze groups, unions, fraternal or athletic groups, or [...] Appointment Neurology Preet Landeros M.D . [address] [place] [phone] Bria Suh APRN, C.N.P., M.S.N. [address] [place] [phone] 07/25/2022 Appointment Radiology Preet Landeros M.D . [address] [place] [address] [phone] (Wo rk) documented as of this encounter Visit Diagnoses Not on filedocumented in this encounter Additional Health Concerns Assessment Noted Time PHQ-9 Depression Total Score: 4 04/20/2015 2:22 PM CDT documented as of this encounter
--- OUTSIDE RECORDS SUMMARY | 2022-06-23 22:46 | XMS_ITS | Encounter Summary ---
:1970 Author Organization [facility] Address [address] [place] [address] Care Team Providers Name Role Phone Unavailable Primary Care Provider Unavailable Encounter Details Date Type Department Care Team Description 07/25/2015 Hospital Encounter HX [facility] Atiya Felipe, Jakob PRLiss, C.N.P. [address] [phone] (Wo rk) Social History [...] or slept in a [facility] (including now)? Sex Assigned at Date Recorded Male 01/30/2018 9:28 AM CDT documented as of this encounter Last Filed Vital Signs Vital Sign Reading Time Taken Comments Blood Pressure - - Pulse - - Temperature - - Respiratory Rate - - Oxygen Saturation - - Inhaled Oxygen Concentration - - Weight - - Height 169 cm (5' 6.54) 07/25/2015 9:01 AM PRODUCTION CLERK Body Mass Index - - documented in [...] this encounter Miscellaneous Notes Telephone Encounter - David Terry L.P.NBon - 01/25/2016 3:35 PM CDT FW: Document Contains Addenda Addendum by ATIYA FELIPE APRN, CNP on January 25, 2016 15:39:25 CDT From: ATIYA FELIPE APRN, CNP To: CALI MURPHY Sent: 01/25/2016 15:39:25 CDT Subject: RE: Glad you are doing better and blood sugars are improved. Let me know how it goes at your [facility] appointment. From: DAVID TERRY LPN ( Family Medicine Nurse) To: ATIYA FELIPE APRN, CNP; Sent: 01/25/2016 15:35:56 CDT Subject: FW: From: CALI MURPHY To: Family Medicine Nurse Sent: 01/25/2016 3:34:46 PM ([facility]-06:00) Central Time ([place] & [place]) Subject: RE: Been doing pretty good - I increased the units and that seems to have stabilized it a bit better - go to [facility] March 13 for MRI and blood work so hope to know more after that - otherwise been feeling fine Addendum by ATIYA FELIPE APRN, CNP on January 25, 2016 15:08:37 CDT From: ATIYA FELIPE APRN, CNP To: CALI MURPHY Sent: 01/25/2016 15:08:37 CDT Subject: RE: Ok, thanks. I'll send off a new prescription right now. How are you doing? From: GEOFF BRITO LPN ( Family Medicine Nurse) To: ATIYA FELIPE APRN, CNP; Sent: 01/25/2016 14:55:49 CDT Subject: FW: From: CALI MURPHY To: Family Medicine Nurse Sent: 01/25/2016 2:45:01 PM ([facility]-06:00) Central Time ([place] & [place]) Subject: RE: once per day at dinnertime Addendum by ATIYA FELIPE APRN, CNP on January 25, 2016 14:24:05 CDT From: ATIYA FELIPE APRN, CNP To: CALI MURPHY Sent: 01/25/2016 14:24:05 CDT Subject: RE: Sure Ashish, just let me clarify though, are you taking 25-30 units once a day or is it divided up? From: DAVID TERRY LPN ( Family Medicine Nurse) To: ATIYA FELIPE APRN WATER RIGHTS SPECIALIST; Sent: 01/25/2016 13:54:41 CDT Subject: FW: From: CALI MURPHY To: Family Medicine Nurse Sent: 01/25/2016 1:32:57 PM ([facility]-06:00) Central Time ([place] & [place]) Subject: RE: Atiya - I am out of novolog and can't get a refill yet - can you increase the amount to take to approx 25 - 30 units per day? that is what I have been using Addendum by ATIYA FELIPE CNP on 25 July 2015 15:46:49 PRODUCTION CLERK From: ATIYA FELIPE CNP To: CALI MURPHY Sent: 07/25/2015 15:46:49 PRODUCTION CLERK Subject: RE: I don't necessarily have to see you, but I need a urine sample. I can put an order in for lab only. Let me know. From: MARTINEZ MAHONEY CMA ( Family Medicine Nurse) To: ATIYA FELIPE CNP; Sent: 07/25/2015 15:41:10 PRODUCTION CLERK Subject: FW: From: CALI MURPHY To: [facility] ( Family Medicine Nurse) Sent: 07/25/2015 03:32 p.m. PRODUCTION CLERK Subject: RE: Thank you for your message. It has been successfully sent to the appropriate care team. Ok can do - Think I may have a bladder infection - Do I HAVE to come in or can you send something tothe pharmacy? 99.995% sure of it - From: ATIYA FELIPE CNP To: CALI MURPHY Sent: 07/25/2015 14:26:40 TOYA Miller, A1c went up since our last visit. Please schedule an appointment soon to discuss adding mealtime insulin along with Lantus insulin. Atiya Results: Date Result Name Ind Value Ref Range 07/25/2015 09:10 Hgb A1c (H) 9.2 % A1C ( - <=5.6) Source: [facility] [employer] Document Id: [id number] Telephone Encounter - Geoff Brito L.P.N. - 01/25/2016 2:55 PM CDT FW: Document Contains Addenda Addendum by ATIYA FELIPE APRN, CNP on January 25, 2016 15:08:37 CDT From: ATIYA FELIPE APRN, CNP To: CALI MURPHY Sent: 01/25/2016 15:08:37 CDT Subject: RE: Ok, thanks. I'll send off a new prescription right now. How are you doing? From: GEOFF BRITO LPN ( Family Medicine Nurse) To: ATIYA FELIPE APRN, CNP; Sent: 01/25/2016 14:55:49 CDT Subject: FW: From: CALI MURPHY To: Family Medicine Nurse Sent: 01/25/2016 2:45:01 PM ([facility]-06:00) Central Time ([place] & [place]) Subject: RE: once per day at dinnertime Addendum by ATIYA FELIPE APRN, CNP on January 25, 2016 14:24:05 CDT From: ATIYA FELIPE APRN, CNP To: CALI MURPHY Sent: 01/25/2016 14:24:05 CDT Subject: RE: Sure Ashish, just let me clarify though, are you taking 25-30 units once a day or is it divided up? From: DAVID TERRY LPN ( Family Medicine Nurse) To: ATIYA FELIPE APRN WATER RIGHTS SPECIALIST; Sent: 01/25/2016 13:54:41 CDT Subject: FW: From: CALI MURPHY To: Family Medicine Nurse Sent: 01/25/2016 1:32:57 PM ([facility]-06:00) Central Time ([place] & [place]) Subject: RE: Atiya - I am out of novolog and can't get a refill yet - can you increase the amount to take to approx 25 - 30 units per day? that is what I have been using Addendum by ATIYA FELIPE CNP on 25 July 2015 15:46:49 PRODUCTION CLERK From: ATIYA FELIPE CNP To: CALI MURPHY Sent: 07/25/2015 15:46:49 PRODUCTION CLERK Subject: RE: I don't necessarily have to see you, but I need a urine sample. I can put an order in for lab only. Let me know. From: MARTINEZ MAHONEY CMA ( Family Medicine Nurse) To: ATIYA FELIPE CNP; Sent: 07/25/2015 15:41:10 PRODUCTION CLERK Subject: FW: From: CALI MURPHY To: [facility] ( Family Medicine Nurse) Sent: 07/25/2015 03:32 p.m. PRODUCTION CLERK Subject: RE: Thank you for your message. It has been successfully sent to the appropriate care team. Ok can do - Think I may have a bladder infection - Do I HAVE to come in or can you send something tothe pharmacy? 99.995% sure of it - From: ATIYA FELIPE CNP To: CALI MURPHY Sent: 07/25/2015 14:26:40 PRODUCTION CLERK Cali, A1c went up since our last visit. Please schedule an appointment soon to discuss adding mealtime insulin along with Lantus insulin. Atiya Results: Date Result Name Ind Value Ref Range 07/25/2015 09:10 Hgb A1c (H) 9.2 % A1C ( - <=5.6) Source: [facility] [employer] Document Id: [id number] Telephone Encounter - David Terry L.P.N. - 01/25/2016 1:54 PM CDT FW: Document Contains Addenda Addendum by ATIYA FELIPE APRN, CNP on January 25, 2016 14:24:05 CDT From: ATIYA FELIPE APRN, CNP To: CALI MURPHY Sent: 01/25/2016 14:24:05 CDT Subject: RE: Pavan Ashish, just let me clarify though, are you taking 25-30 units once a day or is it divided up? From: DAVID TERRY LPN ( Family Medicine Nurse) To: TAIYA FELIPE APRN, CNP; Sent: 01/25/2016 13:54:41 CDT Subject: FW: From: CALI MURPHY To: Family Medicine Nurse Sent: 01/25/2016 1:32:57 PM ([facility]-06:00) Central Time ([place] & [place]) Subject: RE: Atiya - I am out of novolog and can't get a refill yet - can you increase the amount to take to approx 25 - 30 units per day? that is what I have been using Addendum by ATIYA FELIPE CNP on 25 July 2015 15:46:49 PRODUCTION CLERK From: ATIYA FELIPE CNP To: CALI MURPHY Sent: 07/25/2015 15:46:49 PRODUCTION CLERK Subject: RE: I don't necessarily have to see you, but I need a urine sample. I can put an order in for lab only. Let me know. From: MARTINEZ MAHONEY CMA ( Family Medicine Nurse) To: ATIYA FELIPE CNP; Sent: 07/25/2015 15:41:10 PRODUCTION CLERK Subject: FW: From: CALI MURPHY To: [facility] ( Family Medicine Nurse) Sent: 07/25/2015 03:32 p.m. PRODUCTION CLERK Subject: RE: Thank you for your message. It has been successfully sent to the appropriate care team. Ok can do - Think I may have a bladder infection - Do I HAVE to come in or can you send something tothe pharmacy? 99.995% sure of it - From: ATIYA FELIPE CNP To: CALI MURPHY Sent: 07/25/2015 14:26:40 PRODUCTION CLERK Cali, A1c went up since our last visit. Please schedule an appointment soon to discuss adding mealtime insulin along with Lantus insulin. Atiya Results: Date Result Name Ind Value Ref Range 07/25/2015 09:10 Hgb A1c (H) 9.2 % A1C ( - <=5.6) Source: [facility] POWERCHART Document Id: [id number] Telephone Encounter - Conversion, Historical Provider Ser - 08/02/2015 7:39 AM CST *Phone Message Document Contains Addenda Addendum by SHEA TIM LPN on 02 August 2015 16:34:[address] order and questionnaire to [phone]. Cali aware of Staff calling to schedule. From: HÉCTOR SEVILLA To: DANIEL Felipe Nurse; Sent: 08/02/2015 07:39:54 PRODUCTION CLERK Subject: *Phone Message Caller is: ( ) Patient ( ) Mother ( ) Father ( ) Spouse ( ) Daughter ( ) Son ( ) Pharmacy ( ) Other: Physician: Patient MRN #: Reason for Call: Message: S - We are trying to book your patient for the requested CT. B - Paper sheets are still needed for CT exams since it gets entered in [facility] [employer] system. A - The paper order and power form are needed before the patient can get scheduled. R - Please fax the order and power form to [phone] and note if patient has a current creatinine (if applicable). Advice/Action: Source used: ( ) Verbalizes understanding [...] back cell phone number ( ) Source: [facility] [employer] [employer] Document Id: [id number] Telephone Encounter - Martinez Mahoney CBonMBonABon - 07/25/2015 3:41 PM PRODUCTION CLERK FW: Document Contains Addenda Addendum by ATIYA FELIPE CNP on 25 July 2015 15:46:49 PRODUCTION CLERK From: ATIYA FELIPE CNP To: CALI MURPHY Sent: 07/25/2015 15:46:49 PRODUCTION CLERK Subject: RE: I don't necessarily have to see you, but I need a urine sample. I can put an order in for lab only. Let me know. From: MARTINEZ MAHONEY CMA ( Family Medicine Nurse) To: ATIYA FELIPE CNP; Sent: 07/25/2015 15:41:10 PRODUCTION CLERK Subject: FW: From: CALI MURPHY To: [facility] ( Family Medicine Nurse) Sent: 07/25/2015 03:32 p.m. PRODUCTION CLERK Subject: RE: Thank you for your message. It has been successfully sent to the appropriate care team. Ok can do - Think I may have a bladder infection - Do I HAVE to come in or can you send something tothe pharmacy? 99.995% sure of it - From: ATIYA FELIPE CNP To: CALI MURPHY Sent: 07/25/2015 14:26:40 PRODUCTION CLERK Cali, A1c went up since our last visit. Please schedule an appointment soon to discuss adding mealtime insulin along with Lantus insulin. Atiya Results: Date Result Name Ind Value Ref Range 07/25/2015 09:10 Hgb A1c (H) 9.2 % A1C ( - <=5.6) Source: [facility] POWERCHART Document Id: [id number] Miscellaneous - Atiya Felipe, APPLIED PSYCHOLOGY TEACHER, C.N.P. - 07/25/2015 2:27 PM CST Schedule Follow-Up Visit 25 July 2015 CALI MURPHY [id number] [facility] [phone] Dear CALI MURPHY, Thank you for choosing [facility] for your health care needs. You recently had laboratory work performed to assess your overall health. This letter contains the results of your testing and standard ranges to help explain the results. A1c went up again. Please schedule an appointment to discuss adding mealtime insulin along with Lantus insulin. If you have questions prior to our appointment, please contact our office. Result Name Current Result Previous Result Normal Range Hgb A1c (% A1C) (H) 9.2 07/25/2015 (H) 8.9 04/12/2015 - <=5.6 Sincerely, ATIYA FELIPE [address] [place] [address] Electronic Signature Electronically Signed By: ATIYA FELIPE CNP On: 25 July 2015 This document has images extracted. Source: [employer] Document Id: [id number] Miscellaneous - Atiya Felipe APRN, C.N.P. - 07/25/2015 2:26 PM CST From: ATIYA FELIPE CNP To: CALI MURPHY Sent: 07/25/2015 14:26:40 PRODUCTION CLERK Cali, A1c went up since our last visit. Please schedule an appointment soon to discuss adding mealtime insulin along with Lantus insulin. Atiya Results: Date Result Name Ind Value Ref Range 07/25/2015 09:10 Hgb A1c (H) 9.2 % A1C ( - <=5.6) Source: [employer] Document Id: [id number] documented in this encounter Plan of Treatment Upcoming Encounters Date Type Specialty Care Team Description 06/26/2022 Appointment Neurology Preet Landeros M.D . [address] [place] [phone] Bria Suh APRN, C.N.P., M.S.N. [address] [place] [phone] 07/25/2022 Appointment Radiology Preet Landeros M.D . [address] [place] [phone] (Wo rk) documented as of this encounter Procedures Procedure Name Priority Date/Time Associated Diagnosis Comme nts HEMOGLOBIN A1C, B Routine 07/25/2015 9:10 AM Resu lts for this PRODUCTION CLERK procedure are i n the results section. documented in this encounter Results (ABNORMAL) Hemoglobin A1c (07/25/2015 9:10 AM PRODUCTION CLERK) P athologist Signature Hemoglobin A1c, 9.2 (H) <=5.6 A1C POWERCHART B Specimen (Source) Anatomical Collection Method Collection Time Re ceived Time Location / / Volume Laterality Blood 07/25/2015 9:10 AM PRODUCTION CLERK Atiya Felipe APRN, C.N.P. LAB BLOOD ADD-ON Performing Organization Address City/State/ZIP Code Phon e Number POWERCHART documented in this encounter Visit Diagnoses Not on filedocumented in this encounter Additional Health Concerns Assessment Noted Time PHQ-9 Depression Total Score: 4 04/20/2015 2:22 PM CDT documented as of this encounter
--- OUTSIDE RECORDS SUMMARY | 2022-06-23 22:46 | XMS_ITS | Encounter Summary ---
:1970 Author Organization [facility] Address [address] [place] [address] Care Team Providers Name Role Phone Unavailable Primary Care Provider Unavailable Encounter Details Date Type Department Care Team Description 01/09/2015 Hospital Encounter HX [facility] MyrMayra andres, PARTS IDENTIFIER, C.N.P. [address], [place] [address] (Wo rk) Social History Tobacco [...] Reading Time Taken Comments Blood Pressure 128/72 01/09/2015 10:28 AM CDT Pulse 68 01/09/2015 10:28 AM CDT Temperature - - Respiratory Rate 20 01/09/2015 10:28 AM CDT Oxygen Saturation - - Inhaled Oxygen Concentration - - Weight 155 kg (342 lb 9.5 oz) 01/09/2015 10:28 AM CDT Height 169 cm (5' 6.54) 01/09/2015 10:28 AM CDT Body Mass Index 54.41 01/09/2015 10:28 AM CDT documented in this encounter Medications [...] of this encounter Progress Notes Atiya Felipe, PARTS IDENTIFIER, C.N.P. - 01/09/2015 10:13 AM CDT [id number] CHIEF COMPLAINT/REASON FOR VISIT 1. Diabetes, type 2, uncontrolled. 2. Morbid obesity. 3. Hypertension. 4. Eczema. HISTORY OF PRESENT ILLNESS 1. Cali is here for diabetes recheck. He is due for labs. Last A1c was checked in May, was elevated at 8.4. He needs refills on glimepiride. He is currently on 6 mg daily. I am going to have him increase that to 8 mg daily. He will also continue with Perla. He states he had dilated eye exam last February at Dr. Queen's office in [place]. Will call for that report. He also states he has joined the [facility] in [place] and is walking and finding that he is feeling better already. 2. He is morbidly obese. He was congratulated on his new exercise program. I would like him to really work on diet as well and portion control with carb counting. 3. Hypertension. Blood pressure is at goal. He is currently on Diovan 80 mg daily. 4. Eczema. He has eczema on his hands. He has used fluocinonide cream in the past and it has worked well. I will give him a refill today. MEDICATIONS See depart summary from today. ALLERGIES Lisinopril. SYSTEMS REVIEW Positive for that mentioned in the history of present illness and noted in the past medical history in the EMR. All other systems were reviewed and were negative. PREVENTIVE Checking labs today including A1c, lipids, BMP and microalbumin. SOCIAL HISTORY He does not smoke. FAMILY HISTORY Reviewed per EMR on 01/09/2015. VITAL SIGNS See EMR. PHYSICAL EXAMINATION GENERAL: Well-developed, obese male, in no acute distress. SKIN: Warm and dry. HEENT: TMs clear. Throat clear. NECK: Supple. No lymphadenopathy or thyromegaly. HEART: Regular rate and rhythm. S1, S2. No murmur. LUNGS: Clear to auscultation. ABDOMEN: Soft, nontender. No hepatosplenomegaly. EXTREMITIES: Warm, dry, with 1+ edema. IMPRESSION/REPORT/PLAN 1. Diabetes, type 2, uncontrolled. Checking A1c today. Increase glimepiride to 8 mg daily and I willcontact him with lab results. 2. Morbid obesity. Continue working on a regular exercise program with weight loss at the [facility] in [place]. 3. Hypertension. Blood pressure at goal. No changes. Continue with losartan. 4. Eczema. Fluocinonide cream 0.05% apply 2 times daily as needed and recheck if symptoms do not improve. Otherwise, will plan to see him back for a diabetes recheck in 3 months. Atiya Felipe CNP/vicente Electronically Signed By: ATIYA FELIPE CNP On: 01/10/2015 07:55 AM Source: [facility] MHSDOLBEYNONRADSYS Document Id: [id number] documented in this encounter Nursing Notes Atiya Felipe APRN C.N.P. - 01/09/2015 10:44 AM CDT Ambulatory Patient Education The following Patient Education Materials have been given to the patient: Patient Education Materials: Nutrition Diabetes: Meal Planning Nutrition Diabetes: Meal Planning You can help keep your blood sugar level in your target range by eating healthy foods. Your healthcare team can help you create a low-fat, nutritious meal plan. Take an active role in your diabetes management by following your meal plan and working with your healthcare team. Make Your Meal Plan A meal plan gives guidelines for the types and amounts of food you should eat. The goal is to balance food and insulin (or other diabetes medications). Your dietitian will help you make a flexible mealplan that includes many foods that you like. Watch Serving Sizes Your meal plan will group foods by servings. To learn how much a serving is, start by measuring foodportions at each meal. Soon youll know what a serving looks like on your plate. Ask your healthcare provider about how to balance servings of different foods. Eat from All the Food Groups The basis of a healthy meal plan is variety (eating lots of different foods). Choose lean meats, fresh fruits and vegetables, whole grains, and low-fat or non-fat dairy products. Eating a wide variety of foods provides the nutrients your body needs. It can also keep you from getting bored with your meal plan. Learn About Carbohydrates, Fats, and Protein ?? Carbohydrates are starches and sugars. They are found in many foods, including fruit, bread, pasta, milk, and sweets. Of all the foods you eat, carbohydrates have the most effect on your blood sugar. Your dietitian may teach you about carb counting, a way to figure out the amount of carbohydrates in a meal. ?? Fats have the most calories. They also have the most effect on your weight and your risk of heartdisease. When you have diabetes, its important to control your weight and protect your heart. Foods that are high in fat include whole milk, cheese, snack foods, and desserts. ?? Protein is important for building and repairing muscles and bones. Choose low-fat protein sources, such as fish, egg whites, and skinless chicken. Reduce Liquid Sugars Extra calories from sodas, sports drinks, and fruit drinks make it hard to keep blood sugar in range. Cut as many liquid sugars from your meal plan as you can. This includes most fruit juices, which are often high in natural or added sugar. Instead, drink plenty of water and other sugar-free beverages. Eat Less Fat If you need to lose weight, try to reduce the amount of fat in your diet. This can also help lower your cholesterol level to keep blood vessels healthier. Cut fat by using only small amounts of liquid oil for cooking. Read food labels carefully to avoid foods with unhealthy trans fats. Timing Your Meals When it comes to blood sugar control, when you eat is as important as what you eat. You may need to eat several small meals spaced evenly throughout the day to stay in your target range. So dont skip breakfast or wait until late in the day to get most of your calories. Doing so can cause your blood sugar to rise too high or fall too low. ?? [id number] [place] [address]. All rights reserved. This information is not intended as a substitute for professional medical care. Always follow your healthcare professional's instructions. This document has images extracted. Please consider using Cross Current for all your patient education needs. Source: [facility] POWERCHART Document Id: [id number] documented in this encounter Miscellaneous Notes Miscellaneous - Atiya Felipe APRN, C.N.P. - 01/09/2015 10:44 AM CDT Ambulatory Patient Summary [place] - [address] [id number] Visit Information Name: CALI MURPHY [facility] Number: [id number] Current Date: 01/09/2015 10:44:15 Physicians Attending Provider: ATIYA FELIPE CNP Primary Care Provider: ATIYA FELIPE CNP CALI MURPHY has been given the following [...] Take Indications/Special Instructions/Comments/Notes for Patient Medication Changes/Routing albuterol (ProAir HFA 90 mcg/inh inhalation aerosol) 2 puff(s), Inhalation, four times a day as needed for Wheezing ascorbic acid (Vitamin C) aspirin (aspirin) 81 mg, Oral, once a day calcium-vitamin D (Calcium 600+D) Oral, two times a day cetirizine (Zyrtec 10 mg oral tablet) as needed for Allergy symptoms fluocinonide topical (Lidex 0.05% topical gel) 1 kahlil, Topical, two times a day Routed to [facility] , glimepiride (glimepiride 4 mg oral tablet) 2 Tablet(s), Oral, once a day with breakfast This is a CHANGE Routed to [facility] , multivitamin (multivitamin) once a day omeprazole-sodium bicarbonate (Zegerid OTC) 1 cap, Oral, once a day sitaGLIPtin-metFORMIN (Janumet 50 mg-1000 mg oral tablet) 1 Tablet(s), Oral, two times a day valsartan (Diovan 80 mg oral tablet) 1 Tablet(s), Oral, once a day Stop Taking the Following Medications: Medication list as of 01-09-15 10:44 Attention: If you have any medications at [...] of emergency. Electronically Signed By: ATIYA FELIPE CNP Signed On:09-JAN-2015 10:43:51 Your Allergies & Intolerances Substance Reaction Symptoms Category Comments lisinopril Cough Drug Your Problem List Problem Status Onset Comments Morbid Obesity (BMI > 40) (V85.4) Active Hernia, ventral, unspecified Active Diabetes mellitus II, uncontrolled (also use V58.67 if pt has detention (current insulin use) [id number]/23/2012 Psoriasis Active 01/26/2013 Hypertension (HTN) NOS Active Eczema NOS Active Your Upcoming Appointments Date Time Location Provider No Appointments found Attention: Contact your local Clinic if further appointment detail needed. Diabetes: Meal Planning You can help keep your blood sugar level in your target range by eating healthy foods. Your healthcare team can help you create a low-fat, nutritious meal plan. Take an active role in your diabetes management by following your meal plan and working with your healthcare team. Make Your Meal Plan A meal plan gives guidelines for the types and amounts of food you should eat. The goal is to balance food and insulin (or other diabetes medications). Your dietitian will help you make a flexible mealplan that includes many foods that you like. Watch Serving Sizes Your meal plan will group foods by servings. To learn how much a serving is, start by measuring foodportions at each meal. Soon youll know what a serving looks like on your plate. Ask your healthcare provider about how to balance servings of different foods. Eat from All the Food Groups The basis of a healthy meal plan is variety (eating lots of different foods). Choose lean meats, fresh fruits and vegetables, whole grains, and low-fat or non-fat dairy products. Eating a wide variety of foods provides the nutrients your body needs. It can also keep you from getting bored with your meal plan. Learn About Carbohydrates, Fats, and Protein ?? Carbohydrates are starches and sugars. They are found in many foods, including fruit, bread, pasta, milk, and sweets. Of all the foods you eat, carbohydrates have the most effect on your blood sugar. Your dietitian may teach you about carb counting, a way to figure out the amount of carbohydrates in a meal. ?? Fats have the most calories. They also have the most effect on your weight and your risk of heartdisease. When you have diabetes, its important to control your weight and protect your heart. Foods that are high in fat include whole milk, cheese, snack foods, and desserts. ?? Protein is important for building and repairing muscles and bones. Choose low-fat protein sources, such as fish, egg whites, and skinless chicken. Reduce Liquid Sugars Extra calories from sodas, sports drinks, and fruit drinks make it hard to keep blood sugar in range. Cut as many liquid sugars from your meal plan as you can. This includes most fruit juices, which are often high in natural or added sugar. Instead, drink plenty of water and other sugar-free beverages. Eat Less Fat If you need to lose weight, try to reduce the amount of fat in your diet. This can also help lower your cholesterol level to keep blood vessels healthier. Cut fat by using only small amounts of liquid oil for cooking. Read food labels carefully to avoid foods with unhealthy trans fats. Timing Your Meals When it comes to blood sugar control, when you eat is as important as what you eat. You may need to eat several small meals spaced evenly throughout the day to stay in your target range. So dont skip breakfast or wait until late in the day to get most of your calories. Doing so can cause your blood sugar to rise too high or fall too low. ?? [id number] [facility], [address] [place] [address], [place] [address]. All rights reserved. This information is not intended as a substitute for professional medical care. Always follow your healthcare professional's instructions. Your Goals/Additional instructions: This document has images extracted. Please consider using Cross Current for all your patient education needs. Source: [facility] POWERCHART Document Id: [id number] Miscellaneous - Atiya Felipe APRN, C.N.P. - 01/09/2015 10:44 AM CDT Ambulatory Discharge Medication List [address] [id number] Visit Information Name: CALI MURPHY [facility] Number: [id number] Visit Date: 01/09/2015 10:44:13 Attending Provider: ATIYA FELIPE CNP Primary Care Provider: ATIYA FELIPE CNP PIYUSH CALI LU has been given the following list of medications: Your Medications It is important to take your medications as directed. Use a pill box or chart to help remind you to take your medications. Please let your doctor or nurse know if you have problems taking your medications. Medication/Strength How to Take Indications/Special Instructions/Comments/Notes for Patient Medication Changes/Routing albuterol (ProAir HFA 90 mcg/inh inhalation aerosol) 2 puff(s), Inhalation, four times a day as needed for Wheezing ascorbic acid (Vitamin C) aspirin (aspirin) 81 mg, Oral, once a day calcium-vitamin D (Calcium 600+D) Oral, two times a day cetirizine (Zyrtec 10 mg oral tablet) as needed for Allergy symptoms fluocinonide topical (Lidex 0.05% topical gel) 1 kahlil, Topical, two times a day Routed to [facility] , glimepiride (glimepiride 4 mg oral tablet) 2 Tablet(s), Oral, once a day with breakfast This is a CHANGE Routed to [facility] , multivitamin (multivitamin) once a day omeprazole-sodium bicarbonate (Zegerid OTC) 1 cap, Oral, once a day sitaGLIPtin-metFORMIN (Janumet 50 mg-1000 mg oral tablet) 1 Tablet(s), Oral, two times a day valsartan (Diovan 80 mg oral tablet) 1 Tablet(s), Oral, once a day Stop Taking the Following Medications: Medication list as of 01-09-15 10:44 Attention: If you have any medications at [...] of emergency. Electronically Signed By: ATIYA FELIPE CNP Signed On:09-JAN-2015 10:43:51 Additional Information: Source: [facility] POWERCHART Document Id: [id number] Miscellaneous - Debo Tim L.P.N. 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 Needs refills. Fastingsince 10 pm last evening. . Temperature Core : 36.6 DegC(Converted to: 97.9 DegF) Peripheral Pulse Rate : 68 /min Respiratory Rate : 20 /min Heart Rhythm : Regular Systolic Blood Pressure : 128 mmHg Diastolic Blood Pressure : 72 mmHg NIBP Mean : 91 mmHg BP Location : Right upper extremity Blood Pressure Cuff Size : Large Height : 169 cm(Converted to: 5 ft 7 inch(es), 67 inch(es)) Actual Weight : 155.4 kg(Converted to: 342 lb 10 oz) Weight Source : Standing scale Dosing Weight Clinic : 155.4 kg Clinic BSA : 2.7 Body Mass Index : 54.41 kg/m2 GLENROY DEBOJESUS PULLIAM LPN - 01/09/2015 10:28 CDT General Info Information Given By : Patient Preferred Communication Mode : Verbal Languages : [place] Is Patient Female and 13-50 no hysterectomy : No DEBO TIM LPN - 01/09/2015 10:28 CDT Subjective Pain Symptoms : Yes Injury : Work related DEBO TIM LPN - 01/09/2015 10:28 CDT Pain Scale Pain Scale Verbal 0-10 : Open DEBO TIM LPN - 01/09/2015 10:28 CDT Pain Pain Assessment Grid Pain 1 Location : Lower back Intensity : 3 Time Pattern : Intermittent DEBO TIM LPN - 01/09/2015 10:28 CDT Dependent Habits Tobacco Use/Currently Using : No Exposure to Tobacco Smoke : Other: Quit fall Smoking Status : Former smoker GLENROY DEBOJESUS PULLIAM LPN - 01/09/2015 10:28 CDT Tobacco Use Grid Type : Cigars Other Tobacco Frequency : Occasional cigar DEBO TIM LPN - 01/09/2015 10:28 CDT Caffeine Use Grid Caffeine Use : Current Type : Chocolate, Coffee, Soft drinks, Tea Frequency : Daily DEBO TIM MACEY - 01/09/2015 10:28 CDT Recreational Drug Use Grid Drug Use : None DEBO TIM MACEY - 01/09/2015 10:28 CDT ID Screen Travel Within Last 21 Days : No Contact with someone with Ebola : No DEBO TIM MACEY - 01/09/2015 10:28 CDT Source: [facility]T Document Id: [id number] CDT!53 Miscellaneous - Debo Tim [email or web address] - 01/09/2015 10:26 AM CDT Health Assessment Health Assessment Entered On: 01/09/2015 10:27 CDT Performed On: 01/09/2015 10:26 CDT by DEBO TIM LPN Health Assessment Complete Health Assessment Complete or Modified : Annual Health Assessment Annual Health Assessment Completed : Yes GLENROYWILMADEBOJESUS PULLIAM LPN - 01/09/2015 10:26 CDT Nutrition Nutrition Risk Factors by History Adult : None JETTBORADEBO Cottrell HERACLIO CHOUDHURY - 01/09/2015 10:26 CDT Functional Current Daily Living Assistance : None JETTHARPREETWILMADEBOJESUS PULLIAM LPN - 01/09/2015 10:26 CDT Dependent Habits Tobacco Use/Currently Using : No Exposure to Tobacco Smoke : Other: Quit fall Smoking Status : Former smoker DEBO TIM HERACLIO CHOUDHURY - 01/09/2015 10:26 CDT Tobacco Use Grid Type : Cigars Other Tobacco Frequency : Occasional cigar JETTBORAWILMA CottrellDEBOJESUS PULLIAM LPN - 01/09/2015 10:26 CDT Caffeine Use Grid Caffeine Use : Current Type : Chocolate, Coffee, Soft drinks, Tea Frequency : Daily JETTBORAWILMA CottrellDEBOJESUS PULLIAM LPN - 01/09/2015 10:26 CDT Recreational Drug Use Grid Drug Use : None JETTHARPREET DEBOJESUS PULLIAM LPN - 01/09/2015 10:26 CDT Psychosocial Domestic Abuse Concerns : None Behavioral Health Screen/Safety Assmt : No Sabianist Preference : Unknown DEBO TIM MACEY - 01/09/2015 10:26 CDT Advance Directive Advanced Directives : No Advance Directive Additional Information : Yes DEBO TIM MACEY - 01/09/2015 10:26 CDT Educ Needs Learning Style Preference Adult Grid Patient : Printed materials, Verbal explanation Family : Verbal explanation, Printed materials DEBO TIM MACEY - 01/09/2015 10:26 CDT Source: [facility] Document Id: [id number] CDT!35 documented in this encounter Plan of Treatment Upcoming Encounters Date Type Specialty Care Team Description 06/26/2022 Appointment Neurology Preet Landeros M.D . [address] [place] [phone] Bria Suh APRN, C.N.P., M.S.N. [address] [place] [phone] 07/25/2022 Appointment Radiology Preet Landeros M.D . [address] [place] [phone] (Wo rk) documented as of this encounter Visit Diagnoses Not on filedocumented in this encounter
--- OUTSIDE RECORDS SUMMARY | 2022-06-23 22:46 | XMS_ITS | Encounter Summary ---
:1970 Author Organization [facility] Address [address] [place] [address] Care Team Providers Name Role Phone Unavailable Primary Care Provider Unavailable Encounter Details Date Type Department Care Team Description 04/20/2015 Hospital Encounter HX [facility] MyrMayra andres, BARBER OR BEAUTY SHOP MANAGER, C.N.P. [address], [place] [phone] (Wo rk) Social History Tobacco [...] or relatives? How often do you attend religious or More than 4 times per year 06/02/2022 jewish services? Do you belong to any clubs or Yes 06/02/2022 organizations such as religious groups, unions, fraternal or athletic groups, or [...] Sign Reading Time Taken Comments Blood Pressure 126/84 04/20/2015 1:58 PM CDT Pulse 72 04/20/2015 1:58 PM CDT Temperature - - Respiratory Rate 20 04/20/2015 1:58 PM CDT Oxygen Saturation - - Inhaled Oxygen Concentration - - Weight 154 kg (338 lb 6.5 oz) 04/20/2015 1:58 PM CDT Height 169 cm (5' 6.54) 04/20/2015 1:58 PM CDT Body Mass Index 53.75 04/20/2015 1:58 PM CDT documented in this encounter Medications [...] of this encounter Progress Notes Atiya Felipe, BARBER OR BEAUTY SHOP MANAGER, C.N.P. - 04/20/2015 1:43 PM CDT [id number] CHIEF COMPLAINT/REASON FOR VISIT 1. Diabetes type 2, uncontrolled. 2. Hypertension. 3. Hyperlipidemia. HISTORY OF PRESENT ILLNESS 1. Cali is here for recheck. He was in for labs in a week ago. A1c is elevated at 8.9. He states he feels he has been having symptoms from the metformin. He is having stools sometimes as often as 3 times an hour. We did discuss his elevated A1c. It is time to start insulin anyway so I am going to have him discontinue the metformin. He was on Janumet. Will continue with Januvia, that should not be causing any of his problems, as well as glimepiride in the morning for now. Will just start Lantus insulin at bedtime 20 units, and I will have him message me in the portal with blood sugars weekly untilwe get his dose adjusted. 2. Hypertension. Blood pressure is well controlled on Diovan. 3. Hyperlipidemia. Triglycerides were also slightly elevated at 214. He is on atorvastatin 10 mg daily. He is tolerating that without any adverse effects. MEDICATIONS See depart summary from today. ALLERGIES Lisinopril. SYSTEMS REVIEW Positive for that mentioned in the history of present illness and noted in the past medical history in the EMR. All other systems were reviewed and were negative. PREVENTIVE Diabetes education was done today. Please see senior health consultant intake form in the EMR. SOCIAL HISTORY He does not smoke. FAMILY HISTORY Reviewed from [facility] family history tab in the EMR. VITAL SIGNS Reviewed from [facility] under the vitals tab in the EMR. PHYSICAL EXAMINATION GENERAL: Well-developed, obese male, in no acute distress. SKIN: Warm and dry. HEART: Regular rate and rhythm. LUNGS: Clear to auscultation. ABDOMEN: Soft, nontender. No hepatosplenomegaly. IMPRESSION/REPORT/PLAN 1. Diabetes type 2, uncontrolled. Start Lantus insulin 20 units at bedtime. Today, he was instructedon proper technique in administering Lantus insulin. He demonstrated competency and questions were answered. He is discontinuing metformin and will remain on Januvia and glimepiride. He will message every Friday in the patient online services portal with fasting morning blood sugars and will adjusthis insulin and plan to recheck A1c in 3 months. 2. Hypertension, well controlled. No change in medication. 3. Hyperlipidemia. Stable on atorvastatin 10 mg daily. He is encouraged to work on low cholesterol diet and low and low triglyceride diet and get regular exercise. Atiya Felipe CNP/vicente Electronically Signed By: ATIYA FELIPE CNP On: 04/24/2015 08:22 AM Source: [facility] [id number] Document Id: [id number] documented in this encounter Nursing Notes Atiya Felipe APRN C.N.P. - 04/20/2015 2:17 PM CDT Ambulatory Patient Education The following Patient Education Materials have been given to the patient: Patient Education Materials: Nutrition Eating Out When You Have Diabetes Nutrition Eating Out When You Have Diabetes Eating right is an important part of keeping your blood sugar in your target range. You just need tomake healthy choices. When you eat away from home: Try These Tips ?? Ask how foods are prepared before you order. ?? Instead of fried, saut??ed, or breaded foods, choose ones that are broiled, steamed, grilled, or baked. ?? Ask for sauces and dressings on the side. ?? Only eat an amount that fits your meal plan. Remember: You can take home the leftovers. ?? [place] dessert for special occasions. Then, choose a small dessert or share one with a friend orfamily member. Make Healthy Choices Fast Food Garden salad with light dressing on the side Baked potato with vegetables or herbs Broiled, roasted, or grilled chicken sandwich Sliced turkey or lean roast beef sandwich Brazilian Chicken enchilada, no cheese or sour cream Small burrito with whole beans and chicken Whole beans (not refried) and rice Chicken or fish fajitas Steak House Grilled or broiled lean cuts of beef Baked potato with vegetables or herbs Broiled or baked chicken (dont eat the skin) Steamed vegetables Steamed dumplings or potstickers Broiled, boiled, or steamed meats or fish Sushi or sashimi Steamed rice or boiled noodles (one serving is equal to 1/3 cup) ?? [phone] [facility], [address] [place] [address], [place] [address]. All rights reserved. This information is not intended as a substitute for professional medical care. Always follow your healthcare professional's instructions. This document has images extracted. Please consider using Medical Referral Source for all your patient education needs. Source: [facility] [employer]apho Document Id: [id number] documented in this encounter Miscellaneous Notes Miscellaneous - Randi Gramajo - 09/21/2015 9:04 AM CST Reminder Msg Document Contains Addenda Addendum by RANDI GRAMAJO LPN on 10 October 2015 13:20:46 EGG PROCESSING SUPERVISOR Scheduled From: RANDI GRAMAJO LPN To: RANDI GRAMAJO LPN; Sent: 09/21/2015 09:04:03 EGG PROCESSING SUPERVISOR Show up: 10/09/2015 09:03:00 EGG PROCESSING SUPERVISOR Subject: Reminder Msg Please Remember to: Pt due for A1c and OV on or after 10/26/15. Needs call. PATIENT: ( ) Call Patient ( ) Ask Patient to ( ) ( ) Call Relative ( ) Schedule Patient ( ) ( ) Call for Wallpaperer ( ) Follow up on Results ( ) Other: PROVIDER: ( ) Call Physician ( ) Call Pharmacist ( ) Call Lab ( ) Other: Special Instructions: Comments: Source: [facility] [employer] Document Id: [id number] Electronically signed by Ish [facility] Physical Science Aide [id number] at 02/10/2017 1:12 AM CDT Miscellaneous - Tessa Pete RBonNBon - 07/13/2015 1:21 PM CDT *Medication Refill Msg Document Contains Addenda Addendum by DEBO TIM LPN on 13 July 2015 15:06:36 CDT Notified. Addendum by ATIYA FELIPE CNP on 13 July 2015 13:43:24 CDT From: ATIYA FELIPE CNP To: DANIEL Felipe Nurse; Sent: 07/13/2015 13:43:24 CDT Subject: RE: *Medication Refill Msg done Addendum by ATIYA FELIPE CNP on 13 July 2015 13:43:11 CDT From: ATIYA FELIPE CNP To: TESSA PETE RN; Sent: 07/13/2015 13:43:11 CDT Subject: RE: *Medication Refill Msg It's because he has lisinopril on his allergy list (cough) not really an allergy. If you look, you can see he's been on it since 2011 so in the future you can just check previously tolerated and refill. I did it today. From: TESSA PETE RN To: ATIYA FELIPE CNP; Sent: 07/13/2015 13:21:02 CDT Subject: *Medication Refill Msg Caller is: ( ) Patient ( ) Mother ( ) Father ( ) Spouse ( ) Daughter ( ) Son ( ) Pharmacy ( ) Other: Provider: Pharmacy: [facility] Name of Medications Needing Refill: diovan 80mg 1tab daily Last Refill Date: 05/12/15 #90 Additional Information:giving me an alert when i try and fill? 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 POWERCHART Document Id: [id number] Electronically signed by Ish [facility] Physical Science Aide [id number] at 02/10/2017 1:12 AM CDT Miscellaneous - Atiya Felipe APRN, C.N.P. - 04/20/2015 2:22 PM CDT PHQ-9 PHQ-9 Entered On: 04/20/2015 14:23 CDT Performed On: 04/20/2015 14:22 CDT by ATIYA FELIPE CNP PHQ-9 Little interest or pleasure in doing things : Not at all Feeling down, depressed, or hopeless : Several days Trouble falling or staying asleep, or sleeping too much : Several days Feeling tired or having little energy : Several days Poor appetite or overeating : Several days Feeling bad about yourself or that you are a failure : Not at all Trouble concentrating on things : Not at all Moving or speaking slowly; restless or fidgety : Not at all Thoughts that you would be better off /hurting self : Not at all PHQ-9 Calculated Score : 4 Problems make work, home, or dealing with others : Not difficult at all ATIYA FELIPE CNP - 04/20/2015 14:22 CDT Source: [facility] [employer] Document Id: [id number] CDT!13 Miscellaneous - Atiya Felipe APRN, C.N.P. - 04/20/2015 2:17 PM CDT Ambulatory Patient Summary [address] [id number] Visit Information Name: PIYUSH CALI TABITHA [facility] Number: [id number] Current Date: 04/20/2015 14:17:48 Physicians Attending Provider: ATIYA FELIPE CNP Primary [...] nasal (fluticasone 50 mcg/inh nasal spray) 2 [place](s), Nostrils(Both), once a day glimepiride (glimepiride 4 mg oral tablet) 2 Tablet(s), Oral, once a day with breakfast insulin glargine (Lantus Solostar Pen 100 units/mL subcutaneous solution) 20 units, Subcutaneous, once a day (at bedtime) New Routed to [facility] , multivitamin (multivitamin) once a day omeprazole-sodium bicarbonate (Zegerid OTC) 1 cap, Oral, once a day sitaGLIPtin (Januvia 100 mg oral tablet) 1 Tablet(s), Oral, once a day New Routed to [facility] , valsartan (Diovan 80 mg oral tablet) 1 Tablet(s), Oral, once a day Stop Taking the Following Medications: Medication list as of 04-20-15 14:17 Attention: If you have any medications at [...] Electronically Signed By: ATIYA FELIPE CNP Signed On:20-APR-2015 14:17:18 Your Allergies & Intolerances Substance Reaction Symptoms Category Comments lisinopril Cough Drug Your Problem List Problem Status Onset Comments Morbid Obesity (BMI > 40) (V85.4) Active Hernia, ventral, unspecified Active Diabetes mellitus II, uncontrolled (also use V58.67 if pt has senior care (current insulin use) [id number]/23/2012 Psoriasis Active 01/26/2013 Hypertension (HTN) NOS Active Eczema NOS Active Your Upcoming Appointments Date Time Location Provider No Appointments found Attention: Contact your local Clinic if further appointment detail needed. Eating Out When You Have Diabetes Eating right is an important part of keeping your blood sugar in your target range. You just need tomake healthy choices. When you eat away from home: Try These Tips ?? Ask how foods are prepared before you order. ?? Instead of fried, saut?ed, or breaded foods, choose ones that are broiled, steamed, grilled, or baked. ?? Ask for sauces and dressings on the side. ?? Only eat an amount that fits your meal plan. Remember: You can take home the leftovers. ?? [place] dessert for special occasions. Then, choose a small dessert or share one with a friend orfamily member. Make Healthy Choices Fast Food Garden salad with light dressing on the side Baked potato with vegetables or herbs Broiled, roasted, or grilled chicken sandwich Sliced turkey or lean roast beef sandwich Brazilian Chicken enchilada, no cheese or sour cream Small burrito with whole beans and chicken Whole beans (not refried) and rice Chicken or fish fajitas Steak House Grilled or broiled lean cuts of beef Baked potato with vegetables or herbs Broiled or baked chicken (dont eat the skin) Steamed vegetables Steamed dumplings or potstickers Broiled, boiled, or steamed meats or fish Sushi or sashimi Steamed rice or boiled noodles (one serving is equal to 1/3 cup) ?? [id number] [facility], [address] [place] [address], [place] [address]. All rights reserved. This information is not [...] if you dont have one. Go to [email or web address] and click on Create Your Account. Then, follow the directions to complete the online form. Youll be asked for your [facility] number which you can find at the top of this document. Your Goals/Additional instructions: This document has images extracted. Please consider using Medical Referral Source for all your patient education needs. Source: [facility] POWERCHART Document Id: [id number] Miscellaneous - Atiya Felipe APRN, C.N.P. - 04/20/2015 2:17 PM CDT Ambulatory Discharge Medication List [address] [id number] Visit Information Name: CALI MURPHY [facility] Number: [id number] Visit Date: 04/20/2015 14:17:46 Attending Provider: ATIYA FELIPE CNP Primary Care [...] nasal (fluticasone 50 mcg/inh nasal spray) 2 [place](s), Nostrils(Both), once a day glimepiride (glimepiride 4 mg oral tablet) 2 Tablet(s), Oral, once a day with breakfast insulin glargine (Lantus Solostar Pen 100 units/mL subcutaneous solution) 20 units, Subcutaneous, once a day (at bedtime) New Routed to [facility] , multivitamin (multivitamin) once a day omeprazole-sodium bicarbonate (Zegerid OTC) 1 cap, Oral, once a day sitaGLIPtin (Januvia 100 mg oral tablet) 1 Tablet(s), Oral, once a day New Routed to [facility] , valsartan (Diovan 80 mg oral tablet) 1 Tablet(s), Oral, once a day Stop Taking the Following Medications: Medication list as of 04-20-15 14:17 Attention: If you have any medications at [...] of emergency. Electronically Signed By: ATIYA FELIPE COMMERCIAL MANAGER Signed On:20-APR-2015 14:17:18 Additional Information: Source: [facility] POWERCHART Document Id: [id number] Miscellaneous - Debo Tim L.PBonN. - 04/20/2015 1:58 PM CDT Adult Plug Assembler Intake/History Adult Plug Assembler Intake/History Entered On: 04/20/2015 14:00 CDT Performed On: 04/20/2015 13:58 CDT by DEBO TIM LPN Intake Chief Complaint : Diabetic check. Having occassional dizzy spells in the last 3 weeks. Going to bathroom alot and is questioning the metformin. Temperature Core : 36.8 DegC(Converted to: 98.2 DegF) Peripheral Pulse Rate : 72 /min Respiratory Rate : 20 /min Heart Rhythm : Regular Systolic Blood Pressure : 126 mmHg Diastolic Blood Pressure : 84 mmHg NIBP Mean : 98 mmHg BP Location : Right upper extremity Blood Pressure Cuff Size : Large Height : 169 cm(Converted to: 5 ft 7 inch(es), 67 inch(es)) Actual Weight : 153.5 kg(Converted to: 338 lb 7 oz) Weight Source : Standing scale Dosing Weight Clinic : 153.5 kg Clinic BSA : 2.68 Body Mass Index : 53.74 kg/m2 DEBO TIM LPN - 04/20/2015 13:58 CDT General Info Information Given By : Patient Preferred Communication Mode : Verbal Languages : Lebanese Is Patient Female and 13-50 no hysterectomy : No DEBO TIM LPN - 04/20/2015 13:58 CDT Subjective Pain Symptoms : No DEBO TIM LPN - 04/20/2015 13:58 CDT Dependent Habits Tobacco Use/Currently Using : No Exposure to Tobacco Smoke : Other: Quit fall Smoking Status : Former smoker DEBO TIM SHED WORKERS SUPERVISOR - 04/20/2015 13:58 CDT Tobacco Use Grid Type : Cigars Other Tobacco Frequency : Occasional cigar DEBO TIM SHED WORKERS SUPERVISOR - 04/20/2015 13:58 CDT Caffeine Use Grid Caffeine Use : Current Type : Chocolate, Coffee, Soft drinks, Tea Frequency : Daily DEBO TIM SHED WORKERS SUPERVISOR - 04/20/2015 13:58 CDT Recreational Drug Use Grid Drug Use : None DEBO ITM SHED WORKERS SUPERVISOR - 04/20/2015 13:58 CDT [facility] Document Id: [id number] CDT!41 documented in this encounter Plan of Treatment Upcoming Encounters Date Type Specialty Care Team Description 06/26/2022 Appointment Neurology Preet Landeros M.D . [address] [place] [phone] Bria Suh APRN, C.N.P., M.S.N. [address] [place] [phone] 07/25/2022 Appointment Radiology Preet Landeros M.D . [address] [place] [address] [phone] (Wo rk) documented as of this encounter Visit Diagnoses Not on filedocumented in this encounter Additional Health Concerns Assessment Noted Time PHQ-9 Depression Total Score: 4 04/20/2015 2:22 PM CDT documented as of this encounter
--- OUTSIDE RECORDS SUMMARY | 2022-06-23 22:46 | XMS_ITS | Encounter Summary ---
:1970 Author Organization [facility] Address [address] [place] [address] Care Team Providers Name Role Phone Unavailable Primary Care Provider Unavailable Encounter Details Date Type Department Care Team Description 08/01/2015 Hospital Encounter HX [facility] Amanda Barrios, Jakob PRLiss, C.N.P. [address] [phone] (Wo rk) Social History [...] - Height 169 cm (5' 6.54) 08/01/2015 1:43 PM COMPOSITION TILE LAYER Body Mass Index - - documented in [...] Neurology Preet Landeros M.D . [address] [place] [phone] Bria Suh APRN, C.N.P., M.S.N. [address] [place] [phone] 07/25/2022 Appointment Radiology Preet Landeros M.D . [address] [place] [address] [phone] (Wo rk) documented as of this encounter Procedures Procedure Name Priority Date/Time Associated Comments Diagnosis HXUR % DYSMORPHIC Routine 08/01/2015 1:50 PM Resu lts for this RBC COMPOSITION TILE LAYER procedure are i n the results section. URINALYSIS, Routine 08/01/2015 1:50 PM Results f or this MIDSTREAM, WITH COMPOSITION TILE LAYER procedure ar e in CULTURE IF INDICATED the res ults section. documented in this encounter Results HXUR % DYSMORPHIC RBC (08/01/2015 1:50 PM COMPOSITION TILE LAYER) P athologist Signature Dysmorphic RBC <=25 <=25 POWERCHART Specimen Anatomical Collection Method Collection Time Receive d Time (Source) Location / / Volume Laterality Urine, First 08/01/2015 1:50 PM 5 1:50 Voided COMPOSITION TILE LAYER PM COMPOSITION TILE LAYER Barbara Mendez APRNP. LAB HISTORICAL ORDERS Performing Organization Address City/State/ZIP Code Phon e Number POWERCHART (ABNORMAL) Urinalysis, Midstream, with culture if indicated (08/01/2015 1:50 PM COMPOSITION TILE LAYER) Patholo gist Method Time Signature HXUR WBC. Occ-3 None Seen POWERCHART HPF HXUR RBC. 3-10 (A) None Seen POWERCHART HPF HXUR Bacteria, Present (A) None Seen POWERCHART Crystals Present (A) None Seen POWERCHART Comment: Amorphous Squamous Epithelial Occ-3 (A) None Seen HPF POWERC CRONIN HXUr Color Yellow Colorless POWERCHART Clarity Cloudy (A) Clear POWERCHART Glucose 100 (A) Negative MGDL POWERCHART HXBILIRUBIN Negative Negative POWERCHART Ketones, QL(U) Negative Negative MGDL POWERCHART Specific [place], POCT, U 1.020 DIANE RCHART HXBLOOD Trace (A) Negative POWERCHART pH, POCT, Urine 7.5 <5.0 POWERCHART Protein, Ur, Dip Trace Negative MGDL POWERCHAR T Urobilinogen 1.0 0.2 MGDL POWERCHART HXNITRITE Negative Negative POWERCHART Leukocyte Esterase Negative Negative POWERCHART Specimen (Source) Anatomical Collection Method Collection Time Re ceived Time Location / / Volume Laterality Urine, First 08/01/2015 1:50 PM Voided COMPOSITION TILE LAYER Salo Mendez APRNNPietro LAB URINE ORDERABLES Performing Organization Address City/State/ZIP Code Phon e Number POWERCHART documented in this encounter Visit Diagnoses Not on filedocumented in this encounter Additional Health Concerns Assessment Noted Time PHQ-9 Depression Total Score: 4 04/20/2015 2:22 PM CDT documented as of this encounter
--- OUTSIDE RECORDS SUMMARY | 2022-06-23 22:46 | XMS_ITS | Encounter Summary ---
:1970 Author Organization [facility] Address [address] [place] [address] Care Team Providers Name Role Phone Unavailable Primary Care Provider Unavailable Encounter Details Date Type Department Care Team Description 04/12/2015 Hospital Encounter HX [facility] Atiya Felipe, Jakob PRLiss, C.N.P. [address] [phone] (Wo rk) Social History [...] - - Height 169 cm (5' 6.54) 04/12/2015 9:18 AM CDT Body Mass Index - - [...] Miscellaneous - Atiya Felipe, BRET, C.N.P. - 04/17/2015 1:56 PM CDT Schedule Follow-Up Visit 17 April 2015 CALI MURPHY [id number] [facility] [phone] Dear CALI MURPHY, Thank you for choosing [facility] for your health care needs. You recently had laboratory work performed to assess your overall health. This letter contains the results of your testing and standard ranges to help explain the results. I would recommend follow-up as we previously discussed. If you have questions prior to our appointment, please contact our office. Result Name Current Result Previous Result Normal Range AST (unit/L) 21 04/12/2015 8 - 48 Cholesterol (mg/dL) 120 04/12/2015 165 01/09/2015 - <=199 Trig (mg/dL) (H) 214 04/12/2015 (H) 224 01/09/2015 - <=149 HDL (mg/dL) (L) 39 04/12/2015 (L) 37 01/09/2015 >=40 - LDL Calculated (mg/dL) 38 04/12/2015 83 01/09/2015 - <=129 Chol/HDL Ratio 3.08 04/12/2015 4.46 01/09/2015 LDL/HDL 1 04/12/2015 2 01/09/2015 Hgb A1c (% A1C) (H) 8.9 04/12/2015 (H) 8.50 01/09/2015 - <=5.6 Sincerely, ATIYA FELIPE [address] [place] [address] Electronic Signature Electronically Signed By: ATIYA FELIPE CNP On: 17 April 2015 This document has images extracted. Source: [facility] POWERCHART Document Id: [id number] Electronically signed by Ish [facility] Student Life Advisor [id number] at 02/10/2017 12:10 AM CDT Miscellaneous - Atiya Felipe, BRET, C.N.P. - 04/17/2015 1:55 PM CDT From: ATIYA FELIPE CNP To: CALI MURPHY Sent: 04/17/2015 13:55:54 CDT Cali, A1c is very high. Please schedule an appointment to discuss medication change. Atiya Results: Date Result Name Ind Value Ref Range 04/12/2015 09:29 AST 21 unit/L (8 - 48) 04/12/2015 09:29 Cholesterol 120 mg/dL ( - <=199) 04/12/2015 09:29 Trig (H) 214 mg/dL ( - <=149) 04/12/2015 09:29 HDL (L) 39 mg/dL (>=40 - ) 04/12/2015 09:29 LDL Calculated 38 mg/dL ( - <=129) 04/12/2015 09:29 Chol/HDL Ratio 3.08 04/12/2015 09:29 LDL/HDL 1 04/12/2015 09:29 Hgb A1c (H) 8.9 % A1C ( - <=5.6) Source: [facility] POWERCHART Document Id: [id number] Electronically signed by Conversion, [facility] Student Life Advisor [id number] at 02/10/2017 12:10 AM CDT documented in this encounter Plan of Treatment Upcoming Encounters Date Type Specialty Care Team Description 06/26/2022 Appointment Neurology Preet Landeros M.D . [address] [place] [phone] Bria Suh APRN, C.N.P., M.S.N. [address] [place] [phone] 07/25/2022 Appointment Radiology Preet Landeros M.D . [address] [place] [address] [phone] (Wo rk) documented as of this encounter Procedures Procedure Name Priority Date/Time Associated Comments Diagnosis LIPID PANEL, S Routine 04/12/2015 9:29 Results fo r this AM CDT procedure are i n the results section. ASPARTATE Routine 04/12/2015 9:29 Results for this AMINOTRANSFERASE (AST), AM CDT proc edure are in S/P the results section. HEMOGLOBIN A1C, B Routine 04/12/2015 9:29 Results for this AM CDT procedure are i n the results section. documented in this encounter Results AST (Aspartate Aminotransferase) (04/12/2015 9:29 AM CDT) [facility] Method Time Signature Aspartate 21 8 - 48 POWERCHART Aminotransferase UNITL (AST), S Specimen (Source) Anatomical Collection Method Collection Time Re ceived Time Location / / Volume Laterality Blood 04/12/2015 9:29 AM CDT Atiya Felipe APRN, C.N.P. LAB BLOOD ADD-ON Performing Organization Address City/State/ZIP Code Phon e Number POWERCHART (ABNORMAL) Lipid Panel (04/12/2015 9:29 AM CDT) P athologist Signature Calculated LDL 38 <=129 MGDL POWERCHART Comment: 2013 National Lipid Association recommen dations for LDL-C in adults ages 18 and up: Desirable <100 mg/dL Above desirable 100-129 mg/dL Borderline high 130-159 mg/dL High 160-189 mg/dL Very High 190 mg/dL 2014 National Lipid Association recommen dations for LDL-C in children ages 2 to 17. Acceptable <110 mg/dL Borderline High 110-129mg/dL High 130 mg/dL LDL-C >190mg/dL: The markedly elevated LDL level is suggestive of a genetic condition such as familial hypercholesterolemia(FH) or familial defective apolipoprotein B-100 (FDB). Molecular genetic t esting for FH and FDB is available [facility] [employer]: FH/ADH Genetic Reflex [place] el (test ADHP). Acquired (non-genetic) causes of markedly increased LDL cholesterol include cholestatic liver disease due to the presence of LpX. If a genetic form of hypercholesterolemia is suspected, family studies including biochemical testing fo r lipids (total cholesterol,triglycerides, LDL cholesterol and HDL cholesterol) are recommended. ??Please contact the laboratory at or the on-line test catalog at [employer] for information about how to order these adam ts or to speak with a genetic counselor. Further interpretation would require clinical information. Total Cholesterol/HDL Ratio 3.08 PO WERCHART Cholesterol, Total 120 <=199 MGDL POWERCHART Comment: 2013 National Lipid [...] Low 40-45 mg/dL Acceptable >45 mg/dL Triglycerides 214 (H) <=149 MGDL POWERCHART Comment: 2013 National [...] risk assessment when triglycerides are >400mg/dL. HXLDL/HDL 1 POWERCHART Specimen (Source) Anatomical Collection Method Collection Time Re ceived Time Location / / Volume Laterality Blood 04/12/2015 9:29 AM CDT Atiya Felipe APRN, C.N.P. LAB BLOOD ADD-ON Performing Organization Address City/State/ZIP Code Phon e Number POWERCHART (ABNORMAL) Hemoglobin A1c (04/12/2015 9:29 AM CDT) P athologist Signature Hemoglobin A1c, 8.9 (H) <=5.6 A1C POWERCHART B Specimen (Source) Anatomical Collection Method Collection Time Re ceived Time Location / / Volume Laterality Blood 04/12/2015 9:29 AM CDT Atiya Felipe APRN, C.N.P. LAB BLOOD ADD-ON Performing Organization Address City/State/ZIP Code Phon e Number POWERCHART documented in this encounter Visit Diagnoses Not on filedocumented in this encounter
--- OUTSIDE RECORDS SUMMARY | 2022-06-23 22:46 | XMS_ITS | Encounter Summary ---
:1970 Author Organization [facility] Address [address] [place] [address] Care Team Providers Name Role Phone Unavailable Primary Care Provider Unavailable Encounter Details Date Type Department Care Team Description 02/13/2015 Hospital Encounter HX [facility] You Pickett M.D. [address] [place], [place] [address] (Wo rk) Social History Tobacco Use Types [...] Sign Reading Time Taken Comments Blood Pressure 132/64 02/13/2015 10:53 AM CDT Pulse 88 02/13/2015 10:53 AM CDT Temperature - - Respiratory Rate 20 02/13/2015 10:53 AM CDT Oxygen Saturation - - Inhaled Oxygen Concentration - - Weight 151 kg (331 lb 12.7 oz) 02/13/2015 10:53 AM CDT Height 169 cm (5' 6.54) 02/13/2015 10:53 AM CDT Body Mass Index 52.69 02/13/2015 10:53 AM CDT documented in this encounter Medications [...] documented as of this encounter Progress Notes Jg Pickett M.D. - 02/13/2015 11:22 AM CDT Clinic Full Note CHIEF COMPLAINT/REASON FOR VISIT allergies periods of vertigo since change in meds on 01/09/15 refill Albuterol HISTORY OF PRESENT ILLNESS Pt here noting 3 episodes of vertigo, describing as if room was spining around him that came upon him since his last visit in late December 2014. He wonders if this has anything to do with increasing dose of his glimiperide. He has not checked out his blood sugars during these episodes. The pt requests albuterol be refilled. He denies dyspnea or wheezing presently and quite frankly, only uses it 1-2 times a year, but has refilled annually since Dr. Villa scripted it to him because he believed the pt had mild asthma although no documentation exists of this. MEDICATIONS aspirin, 81 mg, PO, Daily atorvastatin 10 mg oral tablet, 10 mg, 1 tab(s), PO, Bedtime, 3 refills Calcium 600+D, PO, 2xDay Diovan 80 mg oral tablet, 80 mg, 1 tab(s), PO, Daily, 3 refills glimepiride 4 mg oral tablet, 8 mg, 2 tab(s), with breakfast, PO, Daily, 1 refills Janumet 50 mg-1000 mg oral tablet, 1 tab(s), PO, 2xDay, 3 refills Lidex 0.05% topical gel, 1 kahlil, Topical, 2xDay, 1 refills multivitamin, Daily ProAir HFA 90 mcg/inh inhalation aerosol, 2 puff(s), Inhalation, 4xDay, PRN, 11 refills Zegerid OTC, 1 cap(s), PO, Daily Zyrtec 10 mg oral tablet, PRN ALLERGIES lisinopril (Cough) PAST MEDICAL HISTORY Chronic Diabetes mellitus II, uncontrolled (also use V58.67 if pt has fdc (current insulin use) Diabetes mellitus type II Eczema NOS Hernia, ventral, unspecified Hypertension (HTN) NOS Morbid Obesity (BMI > 40) (V85.4) Psoriasis Historical No historical problems PROCEDURES/SURGICAL HISTORY Repair initial incisional or ventral hernia; incarcerated or strangulated.. (05/29/2011), Appendectomy (10/30/1984). SOCIAL HISTORY Date Time: 02/13/2015 10:53 Tobacco: Smoking Status: No Results Found Exposure: No Results Found Alcohol: Use: No Results Found Recreational Drugs: Use: None Type: No Results Found FAMILY HISTORY Brother:Positive: Diabetes mellitus SYSTEMS REVIEW GENERAL: No weight gain, no weight loss, no fever in past month, no chills, no sweats, no fatigue EENT: No blurred vision, no double vision, no eye pain, no difficulty swallowing, no mouth sores, no diminished hearing, no ringing in ears, no enlarged glands; POSITIVE for nasal congestion and postnasal drip x 5 weeks. Pt acknowledges hx of allergic rhinitis during non-winter months, takes fexofenad ine for this. PULMONARY: No shortness of breath, no cough, no wheezing, no sputum, no hemoptysis CARDIAC: No valve problems, no chest pain, no chest pressure, no rapid beating, no dependent edema,pain in calves or with walking, no difficulty moving arms and legs GI: No heartburn, no nausea, no vomiting, no stomach trouble, no constipation, no diarrhea, no blood in BMs, no change in BMs : No urethral discharge, no burning/pain with urination, no difficulty starting stream, no difficulty emptying bladder, no excessive urination MUSCULOSKELETAL: No joint pain, no joint swelling, no joint stiffness, no muscle pain, no muscle stiffness, no back pain, no back stiffness. SKIN: No skin rashes, no skin sores, no change in moles NEURO: No significant headaches, no slurred speech, no seizures, no dizziness, no loss of consciousness, no memory loss ENDOCRINE: No excessive thirst, no excessive bruising. VITAL SIGNS T: 36.3 ??C (Core) HR: 88 RR: 20 BP: 132 / 64 HT: 169 cm WT: 150.5 kg BMI: 52.69 PHYSICAL EXAMINATION HEAD: nc/at. PERRLA.EOMI. OP clear and unobstructed. Tongue midline with extension and lesion-free.TMs wnl bilaterally, though mild distension w/o erythema noted on right (no distortion of landmarks). Pt has prominent hypertrophy of nasal turbinates. NECK: supple. No gross JVD. Thyroid is non-palpable. Trachea midline LUNGS: clear to ascultation. No wheezes, rales or egophony. No stridor CV: regular, Normal s1 and s2. No murmur or rub. ABD: Soft, non-distended. Non-tender. No suprapubic discomfort. No CVA tenderness. No palpable pulsatile masses. EXTR: no clubbing, cyanosis, or edema. Capillary refill at 2 seconds throughout both upper and lower extremities bilaterally NEURO: Aware and oriented x3. associate consulting engineer II-XII grossly intact and non-focal. PSYCH: pt is euthymic. Pt shows no delusions or hallucinations. Pt denies any violent ideation. No psychomotor agitation present. Speech normal flow. Insight adequate. IMPRESSION/REPORT/PLAN Diabetes mellitus II, uncontrolled (also use V58.67 if pt has fdc (current insulin use) Pt with improving sugar control concurrent with increase medical therapy and weight loss. F/U with PCP in 3 months as planned. Dysfunction Eustachian Tube R Likely due to allergic rhinitis. After d/w pt regarding risks and benefits, the pt accepts script for fluticasone per EMR orders. Hypertension (HTN) NOS improved control. Rhinitis Allergic NOS After d/w pt regarding risks and benefits, the pt accepts script for flonase per EMR orders as maintainence, may continue use of antihistamine for breakthrough sx. Pt likely with hx of mild bronchospasm related to allergic rhinitis. Will renew albuterol. Ordered: albuterol, 2 puff(s), Inhalation, 4xDay, PRN Wheezing, # 1 each, 2 Refill(s), Maintenance, Pharmacy: [id number] fluticasone nasal, 2 spray(s), Nostrils(Both), Daily, # 3 each, 11 Refill(s), Maintenance, Pharmacy: [id number] OV Est Pt Level 4 - 25178 - 25 min Electronically Signed By: JG PICKETT MD On: 02/13/2015 11:39 AM Source: [facility] Document Id: [id number] documented in this encounter Nursing Notes Randi Gramajo - 03/14/2015 9:50 AM CDT panel management Pt is coming due for diabetic A1c, also has orders in place for additional labs and office visit per [facility]. Attempted to contact pt, message left for pt to return call. Electronically Signed By: RANDI GRAMAJO LPN On: 03/14/2015 09:53 AM Source: [facility] Document Id: [id number] Jg Pickett M.D. - 02/13/2015 11:21 AM CDT Ambulatory Patient Education The following Patient Education Materials have been given to the patient: Patient Education Materials: Ambulatory ALLERGIC RHINITIS Ambulatory Nasal Allergy Nasal Allergy, also called Allergic Rhinitis occurs after exposure to pollen, molds, mildew, animal dander (scales from animal skin, hair and feathers), dust, smoke and fumes. (These are called allergens). When pollen causes a nasal allergy it is commonly called Hay Fever. When these particles contact the lining of the nose, eyes, eyelids, sinuses or throat, they cause the cells to release a chemical called histamine. Histamine may cause a watery discharge from the eyes or nose. It may also cause violent sneezing, nasal congestion, itching of the eyes, nose, throat and mouth. Prevention: Nasal allergy cannot be cured but symptoms can be reduced. Avoid or reduce exposure to the allergen when possible, by the following measures: POLLEN ?? Stay indoors on hot windy days during pollen season ?? Keep windows and doors closed ?? Use an air conditioner with an electrostatic filter DUST, MOLD & MILDEW Follow these measures, especially in the bedroom: ?? When cleaning use vacuum system programmer, oiled mops and damp cloths; dont stir up the dust. ?? Once a week clean the quinn, woodwork and floors with a damp mop and vacuum carpets. ?? Once a year clean the bed frame and springs (do this outside). ?? Cover the box springs with plastic. Do not use mattress pads. ?? Remove stuffed chairs and rugs from the bedroom. ?? Discard old moldy books, furniture and bedding. ?? Use synthetic fabrics for furniture, curtains and bedding. Avoid quilts, comforters, and stuffed toys. ANIMAL DANDER ?? Remove all indoor pets (except fish and reptiles). ?? Avoid all contact with furry animals. ?? Avoid down-stuffed pillows and coats. ?? Some persons are also sensitive to wool and should avoid it. OTHER IRRITANTS ?? Do not smoke and avoid the smoke of others. ?? Some persons are sensitive to cosmetic powder, baby powder and powdered laundry detergents. Therefore, these powders should be avoided. Home Care: ?? DECONGESTANT pills and sprays (Sudafed, NeoSynephrine, Afrin), reduce tissue swelling and watery discharge. Overuse of nasal decongestant sprays may make symptoms worse. Do not use these more often than recommended. ?? ANTIHISTAMINES block the release of histamine during the allergic response. Antihistamines are more effective when taken BEFORE symptoms develop. Unless a prescription antihistamine was prescribed, you may take CLARITIN (loratadine). (Claritin is an smva-klg-rwzuido antihistamine that does not cause drowsiness.) ?? STEROID nasal sprays (Beconase, Vancenase, Nasalide) or oral steroids (Prednisone) may also be prescribed for more severe symptoms. These help to reduce the local inflammation which adds to the allergic response. ?? If you have ASTHMA, pollen season may make your asthma symptoms worse. It is important that you use your asthma medicines as directed during this time to prevent or treat attacks. Some persons with asthma have a worsening of their asthma symptoms when taking antihistamines. If you notice this, stopthe antihistamines and notify your doctor. Follow Up with your doctor or as directed by our staff if your symptoms are not improving with the treatment advised. Get Prompt Medical Attention if any of the following occur: ?? Facial or sinus pain or colored drainage from the nose ?? Severe headache or ear pain ?? Fever of 100.4??F (38??C) or higher, or as directed by your healthcare provider ?? Wheezing or trouble breathing (If you already know you have asthma, return if your asthma symptoms do not respond to the usual doses of your medicine) ?? Cough with lots of colored sputum (mucus) ?? [id number] [place] [address]. All rights reserved. This information is not intended as a substitute for professional medical care. Always follow your healthcare professional's instructions. Source: [facility] POWERCHART Document Id: [id number] Jg Pickett M.D. - 02/13/2015 11:20 AM CDT Ambulatory Patient Education The following Patient Education Materials have been given to the patient: Patient Education Materials: Ambulatory ALLERGIC RHINITIS Ambulatory Nasal Allergy Nasal Allergy, also called Allergic Rhinitis occurs after exposure to pollen, molds, mildew, animal dander (scales from animal skin, hair and feathers), dust, smoke and fumes. (These are called allergens). When pollen causes a nasal allergy it is commonly called Hay Fever. When these particles contact the lining of the nose, eyes, eyelids, sinuses or throat, they cause the cells to release a chemical called histamine. Histamine may cause a watery discharge from the eyes or nose. It may also cause violent sneezing, nasal congestion, itching of the eyes, nose, throat and mouth. Prevention: Nasal allergy cannot be cured but symptoms can be reduced. Avoid or reduce exposure to the allergen when possible, by the following measures: POLLEN ?? Stay indoors on hot windy days during pollen season ?? Keep windows and doors closed ?? Use an air conditioner with an electrostatic filter DUST, MOLD & MILDEW Follow these measures, especially in the bedroom: ?? When cleaning use vacuum system programmer, oiled mops and damp cloths; dont stir up the dust. ?? Once a week clean the quinn, woodwork and floors with a damp mop and vacuum carpets. ?? Once a year clean the bed frame and springs (do this outside). ?? Cover the box springs with plastic. Do not use mattress pads. ?? Remove stuffed chairs and rugs from the bedroom. ?? Discard old moldy books, furniture and bedding. ?? Use synthetic fabrics for furniture, curtains and bedding. Avoid quilts, comforters, and stuffed toys. ANIMAL DANDER ?? Remove all indoor pets (except fish and reptiles). ?? Avoid all contact with furry animals. ?? Avoid down-stuffed pillows and coats. ?? Some persons are also sensitive to wool and should avoid it. OTHER IRRITANTS ?? Do not smoke and avoid the smoke of others. ?? Some persons are sensitive to cosmetic powder, baby powder and powdered laundry detergents. Therefore, these powders should be avoided. Home Care: ?? DECONGESTANT pills and sprays (Sudafed, NeoSynephrine, Afrin), reduce tissue swelling and watery discharge. Overuse of nasal decongestant sprays may make symptoms worse. Do not use these more often than recommended. ?? ANTIHISTAMINES block the release of histamine during the allergic response. Antihistamines are more effective when taken BEFORE symptoms develop. Unless a prescription antihistamine was prescribed, you may take CLARITIN (loratadine). (Claritin is an itsy-mmb-hqgnqlw antihistamine that does not cause drowsiness.) ?? STEROID nasal sprays (Beconase, Vancenase, Nasalide) or oral steroids (Prednisone) may also be prescribed for more severe symptoms. These help to reduce the local inflammation which adds to the allergic response. ?? If you have ASTHMA, pollen season may make your asthma symptoms worse. It is important that you use your asthma medicines as directed during this time to prevent or treat attacks. Some persons with asthma have a worsening of their asthma symptoms when taking antihistamines. If you notice this, stopthe antihistamines and notify your doctor. Follow Up with your doctor or as directed by our staff if your symptoms are not improving with the treatment advised. Get Prompt Medical Attention if any of the following occur: ?? Facial or sinus pain or colored drainage from the nose ?? Severe headache or ear pain ?? Fever of 100.4??F (38??C) or higher, or as directed by your healthcare provider ?? Wheezing or trouble breathing (If you already know you have asthma, return if your asthma symptoms do not respond to the usual doses of your medicine) ?? Cough with lots of colored sputum (mucus) ?? [id number] [place] [address]. All rights reserved. This information is not intended as a substitute for professional medical care. Always follow your healthcare professional's instructions. Source: [facility] POWERCHART Document Id: [id number] documented in this encounter Miscellaneous Notes Miscellaneous - Jg Pickett M.D. - 02/13/2015 11:21 AM CDT Ambulatory Patient Summary [address] [id number] Visit Information Name: CALI MURPHY [facility] Number: [id number] Current Date: 02/13/2015 11:21:17 Physicians Attending Provider: JG PICKETT MD Primary Care Provider: ATIYA FELIPE [facility] CALI MURPHY has been given the following list of follow-up instructions, medication list, and patient education materials: Follow-up Instructions With: Address: When: Follow up with primary care provider In 3 months 05/16/2015 Comments: Your Medications Here is a list of [...] times a day as needed for Wheezing Routed to [facility] , ascorbic acid (Vitamin C) aspirin (aspirin) 81 [...] nasal (fluticasone 50 mcg/inh nasal spray) 2 Bellwood(s), Nostrils(Both), once a day New Routed to [facility] , glimepiride (glimepiride 4 mg oral tablet) 2 Tablet(s), Oral, once a day with breakfast multivitamin (multivitamin) once a day omeprazole-sodium bicarbonate (Zegerid OTC) 1 cap, Oral, once a day sitaGLIPtin-metFORMIN (Janumet 50 mg-1000 mg oral tablet) 1 Tablet(s), Oral, two times a day valsartan (Diovan 80 mg oral tablet) 1 Tablet(s), Oral, once a day Stop Taking the Following Medications: Medication list as of 06-01-15 11:21 Attention: If you have any medications at home that are not on this list, DO NOT take them until youcontact your provider for clarification. Give a copy of your medication list to your primary care provider. Update your medication list any time medications or doses are changed and carry your medication list at all times in case of emergency. Electronically Signed By: JG PICKETT MD Signed On:13-FEB-2015 11:20:43 Your Allergies & Intolerances Substance Reaction Symptoms Category Comments lisinopril Cough Drug Your Problem List Problem Status Onset Comments Morbid Obesity (BMI > 40) (V85.4) Active Hernia, ventral, unspecified Active Diabetes mellitus II, uncontrolled (also use V58.67 if pt has fdc (current insulin use) [id number]/23/2012 Psoriasis Active 01/26/2013 Hypertension (HTN) NOS Active Eczema NOS Active Your Upcoming Appointments Date Time Location Provider No Appointments found Attention: Contact your local Clinic if further appointment detail needed. Nasal Allergy Nasal Allergy, also called Allergic Rhinitis occurs after exposure to pollen, molds, mildew, animal dander (scales from animal skin, hair and feathers), dust, smoke and fumes. (These are called allergens). When pollen causes a nasal allergy it is commonly called Hay Fever. When these particles contact the lining of the nose, eyes, eyelids, sinuses or throat, they cause the cells to release a chemical called histamine. Histamine may cause a watery discharge from the eyes or nose. It may also cause violent sneezing, nasal congestion, itching of the eyes, nose, throat and mouth. Prevention: Nasal allergy cannot be cured but symptoms can be reduced. Avoid or reduce exposure to the allergen when possible, by the following measures: POLLEN ?? Stay indoors on hot windy days during pollen season ?? Keep windows and doors closed ?? Use an air conditioner with an electrostatic filter DUST, MOLD & MILDEW Follow these measures, especially in the bedroom: ?? When cleaning use vacuum system programmer, oiled mops and damp cloths; dont stir up the dust. ?? Once a week clean the quinn, woodwork and floors with a damp mop and vacuum carpets. ?? Once a year clean the bed frame and springs (do this outside). ?? Cover the box springs with plastic. Do not use mattress pads. ?? Remove stuffed chairs and rugs from the bedroom. ?? Discard old moldy books, furniture and bedding. ?? Use synthetic fabrics for furniture, curtains and bedding. Avoid quilts, comforters, and stuffed toys. ANIMAL DANDER ?? Remove all indoor pets (except fish and reptiles). ?? Avoid all contact with furry animals. ?? Avoid down-stuffed pillows and coats. ?? Some persons are also sensitive to wool and should avoid it. OTHER IRRITANTS ?? Do not smoke and avoid the smoke of others. ?? Some persons are sensitive to cosmetic powder, baby powder and powdered laundry detergents. Therefore, these powders should be avoided. Home Care: ?? DECONGESTANT pills and sprays (Sudafed, NeoSynephrine, Afrin), reduce tissue swelling and watery discharge. Overuse of nasal decongestant sprays may make symptoms worse. Do not use these more often than recommended. ?? ANTIHISTAMINES block the release of histamine during the allergic response. Antihistamines are more effective when taken BEFORE symptoms develop. Unless a prescription antihistamine was prescribed, you may take CLARITIN (loratadine). (Claritin is an pjfz-sin-ijiubjp antihistamine that does not cause drowsiness.) ?? STEROID nasal sprays (Beconase, Vancenase, Nasalide) or oral steroids (Prednisone) may also be prescribed for more severe symptoms. These help to reduce the local inflammation which adds to the allergic response. ?? If you have ASTHMA, pollen season may make your asthma symptoms worse. It is important that you use your asthma medicines as directed during this time to prevent or treat attacks. Some persons with asthma have a worsening of their asthma symptoms when taking antihistamines. If you notice this, stopthe antihistamines and notify your doctor. Follow Up with your doctor or as directed by our staff if your symptoms are not improving with the treatment advised. Get Prompt Medical Attention if any of the following occur: ?? Facial or sinus pain or colored drainage from the nose ?? Severe headache or ear pain ?? Fever of 100.4?F (38?C) or higher, or as directed by your healthcare provider ?? Wheezing or trouble breathing (If you already know you have asthma, return if your asthma symptoms do not respond to the usual doses of your medicine) ?? Cough with lots of colored sputum (mucus) ?? [id number] [facility], [address] [place] [address], [place] [address]. All rights reserved. This information is not intended as a substitute for professional medical care. Always follow your healthcare professional's instructions. Your Goals/Additional instructions: Source: [facility] POWER[facility] Document Id: [id number] Miscellaneous - Jg Pickett M.D. - 02/13/2015 11:21 AM CDT Ambulatory Discharge Medication List [address] [id number] Visit Information Name: PIYUSH CALI TABITHA [facility] Number: [id number] Visit Date: 02/13/2015 11:21:15 Attending Provider: JG PICKETT MD Primary Care Provider: ATIYA FELIPE IT ANALYST CALI MURPHY has been given the following [...] times a day as needed for Wheezing Routed to [facility] , ascorbic acid (Vitamin C) aspirin (aspirin) 81 [...] nasal (fluticasone 50 mcg/inh nasal spray) 2 Bellwood(s), Nostrils(Both), once a day New Routed to [facility] , glimepiride (glimepiride 4 mg oral tablet) 2 Tablet(s), Oral, once a day with breakfast multivitamin (multivitamin) once a day omeprazole-sodium bicarbonate (Zegerid OTC) 1 cap, Oral, once a day sitaGLIPtin-metFORMIN (Janumet 50 mg-1000 mg oral tablet) 1 Tablet(s), Oral, two times a day valsartan (Diovan 80 mg oral tablet) 1 Tablet(s), Oral, once a day Stop Taking the Following Medications: Medication list as of 02-13-15 11:21 Attention: If you have any medications at home that are not on this list, DO NOT take them until youcontact your provider for clarification. Give a copy of your medication list to your primary care provider. Update your medication list any time medications or doses are changed and carry your medication list at all times in case of emergency. Electronically Signed By: JG PICKETT MD Signed On:13-FEB-2015 11:20:43 Additional Information: Source: [facility] POWER[facility] Document Id: [id number] Miscellaneous - Randi Gramajo - 02/13/2015 10:53 AM CDT Adult Dust Collector Attendant Intake/History Adult Dust Collector Attendant Intake/History Entered On: 02/13/2015 10:56 CDT Performed On: 02/13/2015 10:53 CDT by RANDI GRAMAJO BANDAGE WINDING MACHINE OPERATOR Intake Chief Complaint : allergies periods of vertigo since change in meds on 01/09/15 refill Albuterol Onset of Symptoms : exacerbation last several days Temperature Core : 36.3 DegC(Converted to: 97.3 DegF) (LOW) Peripheral Pulse Rate : 88 /min Respiratory Rate : 20 /min Heart Rhythm : Regular Systolic Blood Pressure : 132 mmHg Diastolic Blood Pressure : 64 mmHg NIBP Mean : 87 mmHg BP Location : Right upper extremity Blood Pressure Cuff Size : Large Height : 169 cm(Converted to: 5 ft 7 inch(es), 67 inch(es)) Actual Weight : 150.5 kg(Converted to: 331 lb 13 oz) Weight Source : Standing scale Dosing Weight Clinic : 150.5 kg Clinic BSA : 2.66 Body Mass Index : 52.69 kg/m2 RANDI GRAMAJO BANDAGE WINDING MACHINE OPERATOR - 02/13/2015 10:53 CDT General Info Information Given By : Patient Languages : Malay Is Patient Female and 13-50 no hysterectomy : No RANDI GRAMAJO BANDAGE WINDING MACHINE OPERATOR - 02/13/2015 10:53 CDT Subjective Pain Symptoms : No RANDI GRAMAJO BANDAGE WINDING MACHINE OPERATOR - 02/13/2015 10:53 CDT Dependent Habits Tobacco Use/Currently Using : Yes Exposure to Tobacco Smoke : Other: Quit fall Smoking Status : Light tobacco smoker RANDI GRAMAJO [facility] - 02/13/2015 10:53 CDT Tobacco Use Grid Type : Cigars Other Tobacco Frequency : Occasional cigar RANDI GRAMAJO [employer]ANDAGE WINDING MACHINE OPERATOR - 02/13/2015 10:53 CDT Caffeine Use Grid Caffeine Use : Current Type : Chocolate, Coffee, Soft drinks, Tea Frequency : Daily RANDI GRAMAJO BANDAGE WINDING MACHINE OPERATOR - 02/13/2015 10:53 CDT Recreational Drug Use Grid Drug Use : None RANDI GRAMAJO [facility] - 02/13/2015 10:53 CDT ID Screen Drug Resistant Organism : No Travel Within Last 21 Days : No Contact with someone with Ebola : No RANDI GRAMAJO BANDAGE WINDING MACHINE OPERATOR - 02/13/2015 10:53 CDT [facility] Document Id: [id number] CDT!45 documented in this encounter Plan of Treatment Upcoming Encounters Date Type Specialty Care Team Description 06/26/2022 Appointment Neurology Preet Landeros M.D . [address] [place] [phone] Bria Suh APRN, C.N.P., M.S.N. [address] [place] [phone] 07/25/2022 Appointment Radiology Preet Landeros M.D . [address] [place] [address] [phone] (Wo rk) documented as of this encounter Visit Diagnoses Not on filedocumented in this encounter
--- OUTSIDE RECORDS SUMMARY | 2022-06-23 22:46 | XMS_ITS | Encounter Summary ---
:1970 Author Organization [facility] Address [address] [place] [address] Care Team Providers Name Role Phone Unavailable Primary Care Provider Unavailable Encounter Details Date Type Department Care Team Description 08/01/2015 Hospital Encounter HX NO MAPPING Amanda Barrios, SENIOR BACK END JAVA DEVELOPER, C.N.P. [address] [place], [place] [phone] (Wo rk) Social History [...] of this encounter Miscellaneous Notes Miscellaneous - Conversion, Historical Provider Ser - 08/01/2015 11:59 PM MEDICAL RECORD SPECIALIST Coding Summary-Paper Based CODING DATE: 08/11/2015 FINAL [facility] STATUS: * Discharged to Home or Self Care PAYOR: Commercial Insurance ADMIT DX: REASON FOR VISIT DX: FINAL DX: PRINCIPAL: R31.9 Hematuria, unspecified SECONDARY: PROCEDURES DOCTOR NAME DATE NOTE: The code number assigned matches the documented diagnosis and / or procedure in the patient's chart. However, the narrative phrase printed from the coding software may appear abbreviated, or result in slightly different terminology. Coded By: SARAN BERMAN Date Saved: 08/11/2015 01:55 pm Source: [facility] Document Id: [id number] documented in this encounter Plan of Treatment Upcoming Encounters Date Type Specialty Care Team Description 06/26/2022 Appointment Neurology Preet Landeros M.D . [address] [place] [phone] Bria Suh APRN, C.NBonPBon, M.S.N. [address] [place] [phone] 07/25/2022 Appointment Radiology Preet Landeros M.D . [address] [place] [address] [phone] (Wo rk) documented as of this encounter Visit Diagnoses Not on filedocumented in this encounter Additional Health Concerns Assessment Noted Time PHQ-9 Depression Total Score: 4 04/20/2015 2:22 PM CDT documented as of this encounter
--- OUTSIDE RECORDS SUMMARY | 2022-06-23 22:46 | XMS_ITS | Encounter Summary ---
:1970 Author Organization [facility] Address [address] [place] [address] Care Team Providers Name Role Phone Unavailable Primary Care Provider Unavailable Encounter Details Date Type Department Care Team Description 08/07/2015 Hospital Encounter HX [facility] HSP-CT OP Mayra Barrios, RETAIL BEAUTY SPECIALIST, C.N.P. [address] [place] [phone] (Wo rk) Social History Tobacco Use Types [...] More than 4 times per year 06/02/2022 rastafari services? Do you belong to any clubs [...] - - Height 169 cm (5' 6.54) 08/07/2015 8:26 AM CURRICULUM SPECIALIST Body Mass Index - - documented [...] Appointment Neurology Preet Landeros M.D . [address] [place] [phone] Bria Suh APRN, C.N.P., M.S.N. [address] [place] [phone] 07/25/2022 Appointment Radiology Preet Landeros M.D . [address] [place] [address] [phone] (Wo rk) documented as of this encounter Procedures Procedure Name Priority Date/Time Associated Diagnosis Comme nts CT UROGRAM WITH IV Routine 08/07/2015 9:27 AM Res ults for this CONTRAST CURRICULUM SPECIALIST procedure are i n the results section. documented in this encounter Results CT Urogram without IV Contrast (08/07/2015 9:27 AM CURRICULUM SPECIALIST) Anatomical Region Laterality Modality Abdomen, Pelvis Computed Tomography Specimen (Source) Anatomical Collection Method Collection Time Re ceived Time Location / / Volume Laterality 08/07/2015 9:27 AM CURRICULUM SPECIALIST Impressions 08/07/2015 12:36 PM CURRICULUM SPECIALIST 1. 6.5 mm stone at the right UVJ. 2. Complex hypodense round lesion with d ystrophic calcifications in the left kidney. Ultrasound recommended to assess cystic versus solid abnormality. FINDINGS: RIGHT: 6.5 x 6 mm stone positioned at th e right UVJ. ?? No associated hydronephrosis. ??The intrarenal collect ing system, renal pelvis, and the entire length of the ureter are with in normal limits. No renal masses. No renal cysts. LEFT: Complex cystic structure with a fe w coarse calcifications within the posterior medial superior lef t kidney measuring 3.5 x 3.1 x 3.4 cm. This appears to have multiple internal septations which are not obviously enhancing. The intrarenal collecting system, renal pelvis, and the entire length of the ure ter are within normal limits. No urinary calculi. BLADDER: Small postvoid residual. The bl adder is otherwise within normal limits. OTHER: Midline abdominal suture compatib le with prior ventral hernia repair. Mild nonspecific density within the left paramedian subcutaneous fat in the midabdomen may b e postsurgical in nature. Nonspecific sclerosis within the right p osterolateral ninth rib. Narrative 08/07/2015 12:36 PM CURRICULUM SPECIALIST EXAM: CT Urogram INDICATION: microscopic hematuria COMPARISON: No prior for comparison. Procedure Note Mike Childs M.D. / ProviderTad M.D. - 01/23/2017 EXAM: CT Urogram INDICATION: microscopic hematuria COMPARISON: No prior for comparison. IMPRESSION: 1. 6.5 mm stone at the right UVJ. 2. Complex hypodense round lesion with d ystrophic calcifications in the left kidney. Ultrasound recommended to assess cystic versus solid abnormality. FINDINGS: RIGHT: 6.5 x 6 mm stone positioned at th e right UVJ. No associated hydronephrosis. The intrarenal collectin g system, renal pelvis, and the entire length of the ureter are with in normal limits. No renal masses. No renal cysts. LEFT: Complex cystic structure with a fe w coarse calcifications within the posterior medial superior lef t kidney measuring 3.5 x 3.1 x 3.4 cm. This appears to have multiple internal septations which are not obviously enhancing. The intrarenal collecting system, renal pelvis, and the entire length of the ure ter are within normal limits. No urinary calculi. BLADDER: Small postvoid residual. The bl adder is otherwise within normal limits. OTHER: Midline abdominal suture compatib le with prior ventral hernia repair. Mild nonspecific density within the left paramedian subcutaneous fat in the midabdomen may b e postsurgical in nature. Nonspecific sclerosis within the right p osterolateral ninth rib. Niru Edwards R.T.(R)(CT), R.T.(R), R.T.(R)(MR) IMG CT PROCEDURES documented in this encounter Visit Diagnoses Not on filedocumented in this encounter Additional Health Concerns Assessment Noted Time PHQ-9 Depression Total Score: 4 04/20/2015 2:22 PM CDT documented as of this encounter
--- OUTSIDE RECORDS SUMMARY | 2022-06-23 22:46 | XMS_ITS | Encounter Summary ---
:1970 Author Organization [facility] Address [address] [place] [address] Care Team Providers Name Role Phone Unavailable Primary Care Provider Unavailable Encounter Details Date Type Department Care Team Description 10/31/2015 Hospital Encounter HX [facility] MRI Amanda Barrios, Jakob PRN, C.N.P. [address] [place], [place] [phone] (Wo rk) Social History [...] - - Height 169 cm (5' 6.54) 10/31/2015 10:36 AM LOGGING CREW SUPERVISOR Body Mass Index - - documented in [...] of this encounter Miscellaneous Notes Miscellaneous - Shea Tim L.PBonN. - 10/31/2015 2:38 PM CST *General Message/MRI Entered by SHEA TIM LPN on 31 October 2015 14:38:05 LOGGING CREW SUPERVISOR Faxed order and demographics to [facility]. Paul notified. From: BULL GRAMAJO (OW Lab/Rad Salesman/Owner) To: DANIEL Casey; Sent: 10/31/2015 14:25:49 LOGGING CREW SUPERVISOR Subject: *General Message/MRI Notice of Patient Not Completed Ordering Provider: Sophie Date Order Entered: Requested: Pt presented to [facility] for MRI today. We were unable to complete due to size restriction. Please refer patient to another facility in the [facility]. Call patient with info [phone] Action to be Taken: Call Patient Notified Paul. Cancel Request Source: [facility] POWERCHART Document Id: [id number] Electronically signed by Conversion, [facility] Crane Oiler [id number] at 02/08/2017 8:54 AM CDT documented in this encounter Plan of Treatment Upcoming Encounters Date Type Specialty Care Team Description 06/26/2022 Appointment Neurology Preet Landeros M.D . [address] [place] [phone] Bria Suh APRN, C.N.P., M.S.N. [address] [place] [phone] 07/25/2022 Appointment Radiology Preet Landeros M.D . [address] [place] [phone] (Wo rk) documented as of this encounter Visit Diagnoses Not on filedocumented in this encounter Additional Health Concerns Assessment Noted Time PHQ-9 Depression Total Score: 4 04/20/2015 2:22 PM CDT documented as of this encounter
--- OUTSIDE RECORDS SUMMARY | 2022-06-23 22:46 | XMS_ITS | Encounter Summary ---
:1970 Author Organization [facility] Address [address] [place] [address] Care Team Providers Name Role Phone Unavailable Primary Care Provider Unavailable Encounter Details Date Type Department Care Team Description 11/08/2015 Hospital Encounter HX [facility] FAMILYPRA MyrMayra andres, MARINE GEAR KEEPER, C.N.P. [address], [place] [phone] (Wo rk) Social History Tobacco [...] or relatives? How often do you attend mandaeism or More than 4 times per year 06/02/2022 buddhism services? Do you belong to any clubs or Yes 06/02/2022 organizations such as mandaeism groups, unions, fraternal or athletic groups, or [...] Reading Time Taken Comments Blood Pressure 138/76 11/08/2015 2:39 PM DIRECTOR DIETETICS DEPARTMENT Pulse 72 11/08/2015 2:39 PM DIRECTOR DIETETICS DEPARTMENT Temperature - - Respiratory Rate 20 11/08/2015 2:39 PM DIRECTOR DIETETICS DEPARTMENT Oxygen Saturation - - Inhaled Oxygen Concentration - - Weight 152 kg (336 lb 3.2 oz) 11/08/2015 2:39 PM DIRECTOR DIETETICS DEPARTMENT Height 169 cm (5' 6.54) 11/08/2015 2:39 PM DIRECTOR DIETETICS DEPARTMENT Body Mass Index 53.4 11/08/2015 2:39 PM DIRECTOR DIETETICS DEPARTMENT documented in this encounter Medications at Time [...] of this encounter Progress Notes Atiya Felipe, MARINE GEAR KEEPER, C.N.P. - 11/08/2015 3:02 PM CST Clinic Full Note CHIEF COMPLAINT/REASON FOR VISIT Follow up of test results..Has questions about cranberry and cinnamin pills. HISTORY OF PRESENT ILLNESS Cali is here for results of Abdomen MRI for hematuria done at [facility] on October. MRI shows left renal cell carcinoma. I consulted with Dr. Garcia, Urologist who recommended referral to Dr. Josef Lora, Urologist at [facility]. MEDICATIONS aspirin, 81 mg, PO, Daily atorvastatin [...] 100 units/mL subcutaneous solution, 10 units, before [id number]; Z79.4, Subcut., Daily, 3 refills ProAir HFA 90 mcg/inh inhalation aerosol, 2 puff(s), Inhalation, 4xDay, PRN, 2 refills Zegerid OTC, 1 cap(s), PO, Daily Zyrtec 10 mg oral tablet, PRN ALLERGIES lisinopril (Cough) PAST MEDICAL HISTORY Chronic Carcinoma Renal Cell L Diabetes mellitus type II DM2 Uncontrolled Eczema NOS Hernia, ventral, unspecified Hyperlipidemia NOS Hypertension (HTN) NOS Leather Cartridge Belt Maker Use 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 (05/29/2011), Appendectomy (10/30/1984). SOCIAL HISTORY Date Time: 11/08/2015 14:39 Tobacco: Smoking Status: No Results Found Exposure: No Results Found Alcohol: Use: No Results Found Recreational Drugs: Use: None Type: No Results Found FAMILY HISTORY Brother:Positive: Diabetes mellitus HEALTH MAINTENANCE Due for dilated eye exam. SYSTEMS REVIEW Positive for that mentioned in the History of Present Illness and Past Medical History. All other systems were reviewed and were negative. VITAL SIGNS T: 36.5 ??C (Core) HR: 72 RR: 20 BP: 138 / 76 HT: 169 cm WT: 152.5 kg BMI: 53.39 PHYSICAL EXAMINATION GENERAL: Well-developed, well-nourished, in no acute distress. SKIN: Warm and dry. NECK: Supple. No lymphadenopathy. HEART: Regular rate and rhythm. S1, S2. No murmur. LUNGS: Clear to auscultation. No wheezes or rales. ABDOMEN: Soft, nontender. No hepatosplenomegaly. DIAGNOSTIC RESULTS MRI Abdomen: left renal cell carcinoma. IMPRESSION/REPORT/PLAN Carcinoma Renal Cell L Discussed diagnosis, questions answered. On-line referral to [facility] Urologist Josef Lora MD. Total time spent with the patient 25 minutes. 20 minutes of it counseling and coordinating care including discussing diagnosis and follow up plan. Ordered: Consult to Outside Specialist [facility] OV Est Pt Level 4 - [id number] - 25 min Electronically Signed By: ATIYA FELIPE APRN, CNP On: 11/08/2015 03:09 PM Source: [facility] [employer]read Document Id: [id number] CTOR DIETETICS DEPARTMENT documented in this encounter Nursing Notes Debo Tim L.P.NBon - 11/08/2015 3:42 PM CST [place] On Line Referral Completed On Line [place] Referral for Urology. Electronically Signed By: DEBO TIM LPN On: 11/08/2015 03:43 PM Source: [facility] [employer] Document Id: [id number] CTOR DIETETICS DEPARTMENT Atiya Felipe APRN, C.N.P. - 11/08/2015 2:54 PM CST Ambulatory Patient Education The following Patient Education [...] immune system to help fight cancer. ?? [id number] [facility], [address] [place] [address], [place] [address]. All rights reserved. This information is not intended as a substitute for professional medical care. Always follow your healthcare professional's instructions. This document has images extracted. Please consider using [employer] for all your patient education needs. Source: [facility] POWERCHART Document Id: [id number] CTOR DIETETICS DEPARTMENT documented in this encounter Miscellaneous Notes Miscellaneous - Atiya Felipe APRN, C.N.P. - 11/08/2015 2:54 PM CST Ambulatory Patient Summary [address] [id number] Visit Information Name: CALI MURPHY TABITHA [facility] Number: [id number] Current Date: 11/08/2015 14:54:46 Physicians Attending Provider: ATIYA FELIPE APRN, CNP Primary Care Provider: ATIYA FELIPE APRN BUSINESS SOLUTIONS ANALYST CALI MURPHY has been given the [...] nasal (fluticasone 50 mcg/inh nasal spray) 2 Terry(s), Nostrils(Both), once a day glimepiride (glimepiride 4 [...] the Following Medications: Medication list as of 11-08-15 14:54 Attention: If you have any medications at [...] Signed By: ATIYA FELIPE APRN, CNP Signed On:08-NOV-2015 14:53:44 Your Allergies & Intolerances Substance Reaction Symptoms Category Comments lisinopril Cough Drug Your Problem List Problem Status Onset Comments Morbid Obesity (BMI > 40) (V85.4) Active Hernia, ventral, unspecified Active Psoriasis Active 01/26/2013 Hypertension (HTN) NOS Active Eczema NOS Active Hyperlipidemia NOS Active Leather Cartridge Belt Maker Use Of Insulin Active Active DM2 Uncontrolled Active Carcinoma Renal Cell L Active 11/02/2015 11/08/15 Per MRI [place], [place] Your Upcoming Appointments Date Time Location Provider 11/13/2015 14:45 [facility] Robbie Garcia MD Attention: Contact your local Clinic if further [...] immune system to help fight cancer. ?? 1977-8725 [facility], [address] [place] [address], [place] [address]. All rights reserved. This information is not [...] if you dont have one. Go to [email or web address] and click on Create Your Account. Then, follow the directions to complete the online form. Youll be asked for your [facility] number which you can find at the top of this document. Your Goals/Additional instructions: This document has images extracted. Please consider using [employer] for all your patient education needs. Source: [facility] POWERCHART Document Id: [id number] CTOR DIETETICS DEPARTMENT Miscellaneous - Atiya Felipe APRN, C.N.P. - 11/08/2015 2:54 PM CST Ambulatory Discharge Medication List [address] [id number] Visit Information Name: CALI MURPHY [facility] Number: [id number] Visit Date: 11/08/2015 14:54:44 Attending Provider: ATIYA FELIPE APRN BUSINESS SOLUTIONS ANALYST Primary Care Provider: ATIYA FELIPE APRN BUSINESS SOLUTIONS ANALYST CALI MURPHY has been given the [...] nasal (fluticasone 50 mcg/inh nasal spray) 2 Terry(s), Nostrils(Both), once a day glimepiride (glimepiride 4 [...] the Following Medications: Medication list as of 11-08-15 14:54 Attention: If you have any medications at [...] emergency. Electronically Signed By: ATIYA FELIPE APRN BUSINESS SOLUTIONS ANALYST Signed On:08-NOV-2015 14:53:44 Additional Information: Source: [facility] POWERCHART Document Id: [id number] CTOR DIETETICS DEPARTMENT Miscellaneous - Debo Tim L.PBonN. - 11/08/2015 2:39 PM CST Adult Rental Manager Intake/History Document Has Been Updated Adult Rental Manager Intake/History Entered On: 11/08/2015 14:41 DIRECTOR DIETETICS DEPARTMENT Performed On: 11/08/2015 14:39 DIRECTOR DIETETICS DEPARTMENT by DEBO TIM LPN Intake Chief Complaint : Follow up of test results..Has questions about cranberry and cinnamin pills. GLENROY DEBOJESUS PULLIAM LPN - 11/08/2015 14:42 DIRECTOR DIETETICS DEPARTMENT Temperature Core : 36.5 DegC(Converted to: 97.7 DegF) Peripheral Pulse Rate : 72 /min Respiratory Rate : 20 /min Heart Rhythm : Regular Systolic Blood Pressure : 138 mmHg Diastolic Blood Pressure : 76 mmHg NIBP Mean : 97 mmHg BP Location : Left upper extremity Blood Pressure Cuff Size : Large Height : 169 cm(Converted to: 5 ft 7 inch(es), 67 inch(es)) Actual Weight : 152.5 kg(Converted to: 336 lb 3 oz) Weight Source : Standing scale Dosing Weight Clinic : 152.5 kg Clinic BSA : 2.68 Body Mass Index : 53.39 kg/m2 DEBO TIM LPN - 11/08/2015 14:39 DIRECTOR DIETETICS DEPARTMENT General Info Information Given By : Patient Preferred Communication Mode : Verbal Languages : Nepali Is Patient Female and 13-50 no hysterectomy : No DEBO TIM LPN 11/08/2015 14:39 DIRECTOR DIETETICS DEPARTMENT Subjective Pain Symptoms : Yes DEBO TIM LPN - 11/08/2015 14:39 DIRECTOR DIETETICS DEPARTMENT Pain Scale Pain Scale Verbal 0-10 : Open DEBO TIM LPN - 11/08/2015 14:39 DIRECTOR DIETETICS DEPARTMENT Pain Pain Assessment Grid Pain 1 Location : Shoulder Laterality : Left Intensity : 4 Time Pattern : Intermittent DEBO TIM LPN - 11/08/2015 14:39 DIRECTOR DIETETICS DEPARTMENT Dependent Habits Exposure to Tobacco Smoke : Other: Quit fall Smoking Status : Former smoker Tobacco 2A : Yes Tobacco Use/Currently Using : No Tobacco Use/Last 30 Days : No Tobacco Use/Last 12 months : No Tobacco Last Use/Year : 2013 DEBO TIM LPN 11/08/2015 14:39 DIRECTOR DIETETICS DEPARTMENT Caffeine Use Grid Caffeine Use : Current Type : Chocolate, Coffee, Soft drinks, Tea Frequency : Daily DEBO TIM LPN - 11/08/2015 14:39 DIRECTOR DIETETICS DEPARTMENT Recreational Drug Use Grid Drug Use : None DEBO TIM MACEY - 11/08/2015 14:39 DIRECTOR DIETETICS DEPARTMENT Source: [facility] POWERCHART Document Id: [id number] DIRECTOR DIETETICS DEPARTMENT!3 CTOR DIETETICS DEPARTMENT documented in this encounter Plan of Treatment Upcoming Encounters Date Type Specialty Care Team Description 06/26/2022 Appointment Neurology Preet Landeros M.D . [address] [place] [phone] Bria Suh APRN, C.N.P., M.S.N. [address] [place] [phone] 07/25/2022 Appointment Radiology Preet Landeros M.D . [address] [place] [phone] (Wo rk) documented as of this encounter Visit Diagnoses Not on filedocumented in this encounter Additional Health Concerns Assessment Noted Time PHQ-9 Depression Total Score: 4 04/20/2015 2:22 PM CDT documented as of this encounter
--- OUTSIDE RECORDS SUMMARY | 2022-06-23 22:46 | XMS_ITS | Encounter Summary ---
:1970 Author Organization [facility] Address [address] [place] [address] Care Team Providers Name Role Phone Unavailable Primary Care Provider Unavailable Encounter Details Date Type Department Care Team Description 10/26/2015 Hospital Encounter HX [facility] ULTRASOUN Mayra Barrios, IRONER, C.N.P. [address], [place] [phone] (Wo rk) Social History Tobacco [...] - Height 169 cm (5' 6.54) 10/26/2015 9:16 AM VETERINARY LABORATORY DIAGNOSTICIAN Body Mass Index - - documented in [...] Neurology Preet Landeros M.D . [address] [place] [phone] Bria Suh APRN, C.N.P., M.S.N. [address] [place] [phone] 07/25/2022 Appointment Radiology Preet Landeros M.D . [address] [place] [address] [phone] (Wo rk) documented as of this encounter Procedures Procedure Name Priority Date/Time Associated Diagnosis Comme nts US KIDNEYS Routine 10/26/2015 9:30 AM Results f or this BILATERAL WITH VETERINARY LABORATORY DIAGNOSTICIAN procedure are in BLADDER the results section. documented in this encounter Results US Retroperitoneum Kidney Bilateral (10/26/2015 9:30 AM VETERINARY LABORATORY DIAGNOSTICIAN) Anatomical Region Laterality Modality Abdomen, Renal Bilateral Ultrasound Specimen (Source) Anatomical Collection Method Collection Time Re ceived Time Location / / Volume Laterality 10/26/2015 9:30 AM VETERINARY LABORATORY DIAGNOSTICIAN Addenda Addendum by Provider, Savanah Del Angel 10/26/2015 9:30 AM VETERINARY LABORATORY DIAGNOSTICIAN RAD^^^OW US Renal 10/26/2015 09:30:00 Impressions 10/26/2015 11:01 AM VETERINARY LABORATORY DIAGNOSTICIAN ??Technically limited visualization secondary to body habitus. Located within the upper pole t he left kidney there is a ill-defined, hypoechoic approximately 3. 1 cm x 2.6 cm x 1.9 cm mass with peripheral echogenic foci,, likely representing previously seen calcifications; better seen on CT urogra m August 07, 2015. The suboptimally visualized hypoechoic mass appears relatively unchanged in size and morphology when compared to prior CT evaluation. No definite cystic component, favor probabl e solid mass. Given the solid appearance, remains concerning for neopl asm. If clinically possible due to patient's body habitus recommend consideration for MRI of the of the kidneys, alternatively if unable to perform MRI evaluation follow-up CT with IV contrast and/or fol low-up renal ultrasound surveillance could be performed for conf irmation of continued stability. Favor attempting MRI of the k idneys if possible. Narrative 10/26/2015 11:01 AM VETERINARY LABORATORY DIAGNOSTICIAN EXAM: ??US Renal AGE: ??45 years old. GENDER: ??Male. INDICATION: ??left renal calcification p er CT urogram COMPARISON: ??CT year CT urogram [id number]. FINDINGS: ??Technically limited evaluati on secondary to body habitus. Right kidney: 11.3 cm in length. No appr eciable masses. No hydronephrosis. Left kidney: 12.6 cm. Technically limite d visualization secondary to body habitus. Located within the upper p ole the left kidney there is a ill-defined, hypoechoic approximately 3.1 cm x 2.6 cm x 1.9 cm mass with peripheral echogenic foci,, likely representing previously seen calcifications; better seen on CT urogra m August 07, 2015. The suboptimally visualized hypoechoic mass appears relatively unchanged in size and morphology when compared to prior CT evaluation. No definite cystic component, favor probabl e solid mass. Given the solid appearance, remains concerning for neopl asm. If clinically possible due to patient's body habitus recommend consideration for MRI of the of the kidneys, alternatively if unable to perform MRI evaluation follow-up CT with IV contrast and/or fol low-up renal ultrasound surveillance could be performed for conf irmation of continued stability. Favor attempting MRI of the k idneys if possible. Bladder: Prevoid bladder volume 219 mL. Post void bladder volume emptied. Purse Framer reported presence of a left- sided ureteral jet during active sonographic evaluation. No observ ed left-sided ureteral jet. Procedure Note Wayne Watkins M.D. / Julito Salgado M.D. - 01/17/2017 EXAM: US Renal AGE: [age] years old. GENDER: Male. INDICATION: left renal calcification per CT urogram COMPARISON: CT year CT urogram August 07, 2015. FINDINGS: Technically limited evaluation secondary to body habitus. Right kidney: 11.3 cm in length. No appr eciable masses. No hydronephrosis. Left kidney: 12.6 cm. Technically limite d visualization secondary to body habitus. Located within the upper p ole the left kidney there is a ill-defined, hypoechoic approximately 3.1 cm x 2.6 cm x 1.9 cm mass with peripheral echogenic foci,, likely representing previously seen calcifications; better seen on CT urogra m August 07, 2015. The suboptimally visualized hypoechoic mass appears relatively unchanged in size and morphology when compared to prior CT evaluation. No definite cystic component, favor probabl e solid mass. Given the solid appearance, remains concerning for neopl asm. If clinically possible due to patient's body habitus recommend consideration for MRI of the of the kidneys, alternatively if unable to perform MRI evaluation follow-up CT with IV contrast and/or fol low-up renal ultrasound surveillance could be performed for conf irmation of continued stability. Favor attempting MRI of the k idneys if possible. Bladder: Prevoid bladder volume 219 mL. Post void bladder volume emptied. Purse Framer reported presence of a left- sided ureteral jet during active sonographic evaluation. No observ ed left-sided ureteral jet. IMPRESSION: Technically limited visualiz ation secondary to body habitus. Located within the upper pole t he left kidney there is a ill-defined, hypoechoic approximately 3. 1 cm x 2.6 cm x 1.9 cm mass with peripheral echogenic foci,, likely representing previously seen calcifications; better seen on CT urogra m August 07, 2015. The suboptimally visualized hypoechoic mass appears relatively unchanged in size and morphology when compared to prior CT evaluation. No definite cystic component, favor probabl e solid mass. Given the solid appearance, remains concerning for neopl asm. If clinically possible due to patient's body habitus recommend consideration for MRI of the of the kidneys, alternatively if unable to perform MRI evaluation follow-up CT with IV contrast and/or fol low-up renal ultrasound surveillance could be performed for conf irmation of continued stability. Favor attempting MRI of the k idneys if possible. Jazmyn Orta R.V.T., Sayra[facility]on IMG US PROCEDURES documented in this encounter Visit Diagnoses Not on filedocumented in this encounter Additional Health Concerns Assessment Noted Time PHQ-9 Depression Total Score: 4 04/20/2015 2:22 PM CDT documented as of this encounter
--- OUTSIDE RECORDS SUMMARY | 2022-06-23 22:46 | XMS_ITS | Encounter Summary ---
:1970 Author Organization [facility] Address [address] [place] [address] Care Team Providers Name Role Phone Unavailable Primary Care Provider Unavailable Encounter Details Date Type Department Care Team Description 09/27/2013 Hospital Encounter HX [facility] LAB José Luis Villa M .D. Social History Tobacco Use Types Packs/Day Years [...] mg by mouth 0 03/09 daily. calcium carbonate-vitamin Take by mouth 2 0 03/2505/17/2020 D3 (CALCIUM+D) 400-133.3 (two) times a day. mg-unit tablet cetirizine (ZyrTEC) 10 mg Zyrtec 10 mg oral 0 05/17/2020 tablet tablet PRN multivitamin capsule daily. 0 03/09/201001/13 documented as of this encounter Plan of Treatment Upcoming Encounters Date Type Specialty Care Team Description 06/26/2022 Appointment Neurology Preet Landeros M.D . [address] [place] [phone] Bria Suh, BRET, C.N.P., M.S.N. [address] [place] [phone] 07/25/2022 Appointment Radiology Preet Landeros M.D . [address] [place] [address] [phone] (Wo rk) documented as of this encounter Procedures Procedure Name Priority Date/Time Associated Comments Diagnosis HEMOGLOBIN A1C, B Routine 09/27/2013 9:07 AM Resu lts for this TRANSPORTATION REFRIGERATION TECHNICIAN procedure are i n the results section. BASIC METABOLIC Routine 09/27/2013 9:07 AM Result s for this PANEL, S/P TRANSPORTATION REFRIGERATION TECHNICIAN procedure are i n the results section. documented in this encounter Results (ABNORMAL) BMP (Basic Metabolic Panel) (09/27/2013 9:07 AM TRANSPORTATION REFRIGERATION TECHNICIAN) P athologist Signature BUN (Blood Urea 12 7 - 23 POWERCHART Nitrogen), S MGDL Creatinine 0.7 (L) 0.9 - 1.4 POWERCHART MGDL Glucose 182 POWERCHART Potassium, S 4.7 3.5 - 4.8 POWERCHART MMOLL Sodium, S 141 135 - 145 POWERCHART MMOLL Chloride, S 99 (L) 100 - 108 POWERCHART MMOLL CO2 Total 32 (H) 22 - 30 POWERCHART MMOLL Calcium, Total, 9.5 8.5 - 10.5 POWERCHART S MGDL HXeGFR (MDRD) >60 MLMIN POWERCHART eGFR >60 MLMIN POWERCHART Black/ Specimen (Source) Anatomical Collection Method Collection Time Re ceived Time Location / / Volume Laterality Blood 09/27/2013 9:07 AM TRANSPORTATION REFRIGERATION TECHNICIAN José Luis Villa M.D. LAB BLOOD ADD-ON Performing Organization Address City/State/ZIP Code Phon e Number POWERCHART (ABNORMAL) Hemoglobin A1c (09/27/2013 9:07 AM TRANSPORTATION REFRIGERATION TECHNICIAN) P athologist Signature Hemoglobin A1c, 8.5 (H) 4.0 - 6.0 POWERCHART B Specimen (Source) Anatomical Collection Method Collection Time Re ceived Time Location / / Volume Laterality Blood 09/27/2013 9:07 AM TRANSPORTATION REFRIGERATION TECHNICIAN José Luis Villa M.D. LAB BLOOD ADD-ON Performing Organization Address City/State/ZIP Code Phon e Number POWERCHART documented in this encounter Visit Diagnoses Not on filedocumented in this encounter
--- OUTSIDE RECORDS SUMMARY | 2022-06-23 22:46 | XMS_ITS | Encounter Summary ---
:[address] [facility] Address [address] [place] [address] Care Team Providers Name Role Phone Unavailable Primary Care Provider Unavailable Encounter Details Date Type Department Care Team Description 06/09/2014 Hospital Encounter HX [facility] MyrMayra andres, ACCOUNT DEVELOPMENT REPRESENTATIVE, C.N.P. [address] [address] (Wo rk) Social History Tobacco [...] More than 4 times per year 06/02/2022 yarsani services? Do you belong to any clubs [...] Sign Reading Time Taken Comments Blood Pressure 138/78 06/09/2014 2:13 PM CDT Pulse 84 06/09/2014 2:13 PM CDT Temperature - - Respiratory Rate 16 06/09/2014 2:13 PM CDT Oxygen Saturation - - Inhaled Oxygen Concentration - - Weight 154 kg (340 lb 9.8 oz) 06/09/2014 2:13 PM CDT Height 169 cm (5' 6.54) 06/09/2014 2:13 PM CDT Body Mass Index 54.1 06/09/2014 2:13 PM CDT documented in this encounter Medications [...] Progress Notes Atiya Felipe, BRET, C.N.P. - 06/09/2014 2:07 PM CDT [id number] CHIEF COMPLAINT/REASON FOR VISIT 1. Diabetes type 2, uncontrolled. 2. Hypertension. 3. Right elbow tendinitis. HISTORY OF PRESENT ILLNESS 1. Cali is here for diabetes recheck. He has not had A1c checked since September, it was uncontrolled at that time at 8.5. He is currently on metformin and glimepiride. Will check A1c today. He is not fasting. He will be due for lipids on June 15. He will return fasting for that appointment. 2. He has history of hypertension. He discontinued his Diovan. He states he thought he maybe was coughing from it. He did have cough from lisinopril. I doubt he was having a cough from the Diovan. I amgoing to have him restart it. If he does have symptoms then we will have to go to a totally different class of antihypertensive. 3. Right elbow tendinitis. He is currently seeing the chiropractor. He feels it is helping. MEDICATIONS See depart summary from today. ALLERGIES Lisinopril causes cough. SYSTEMS REVIEW Positive for that mentioned in the history of present illness and noted in the past medical history in the EMR. All other systems were reviewed and were negative. PREVENTIVE He is updated on tetanus and pertussis with Adacel today. Dilated eye exam was done by Dr. uQeen in [place], will call for that record. Eye exam was in February. VITAL SIGNS See EMR. PHYSICAL EXAMINATION GENERAL: Well-developed obese male in no acute distress. SKIN: Warm and dry. TMs clear. Throat clear. NECK: Supple. LUNGS: Clear to auscultation. HEART: Regular rate and rhythm. ABDOMEN: Soft, nontender. No hepatosplenomegaly. EXTREMITIES: Warm, dry. No peripheral edema. Normal sensation tops and bottoms of feet with monofilament. IMPRESSION/REPORT/PLAN 1. Diabetes type 2 uncontrolled. Will check A1c today. We did discuss that if A1c is over 8.5 again he will need to start Lantus insulin at bedtime. If it is between 8 and 8.5 I would consider adding another oral agent such as Januvia. I will let him know results. He will return for fasting lipids andmicroalbumin after June 15. He will get a flu shot at work. Diabetes education was done today. Please see patient educator intake form in the EMR. 2. Hypertension. Restart Diovan 80 mg 1 daily and we will have him check his blood pressure when he comes in on June 15 again. 3. Right elbow tendinitis. Continue seeing a chiropractor. As long as making progresses if symptoms do not continue to improve I will have him see Dr. Narvaez for further evaluation. Atiya Felipe, KATELYN/aosmiley Electronically Signed By: ATIYA FELIPE CNP On: 06/13/2014 08:05 AM Source: [facility] Document Id: [id number] documented in this encounter Nursing Notes Atiya Felipe APRN, C.N.P. - 06/09/2014 2:58 PM CDT Senior Technical Manager Intake (Adult) Senior Technical Manager Intake (Adult) Entered On: 06/09/2014 14:59 CDT Performed On: 06/09/2014 14:58 CDT by ATIYA FELIPE CNP Assessment Program Type : Non-Program Diabetes Referring Provider : ATIYA FELIPE CNP Special needs : None Method Used for DSME : Individual Last Educator Visit Date : 06/09/2014 CDT Diabetes Type : Type 2 19 years and older Ethnicity : White/ Diabetes Onset : 1999 Current Treatment : Oral agents Medication Compliance : Takes meds as prescribed Diabetes Medications Reviewed : Yes Medication Categories : Biguanide, Sulfonylurea Exercise Type : None Time Spent With Patient : 15 Minutes ATIYA FELIPE CNP - 06/09/2014 14:58 CDT Education Diabetes Education Grid Topics : Medications/Effectiveness - Oral Agents, Monitoring - Blood Glucose, Using Results - Blood Glucose, Problem Solving/Goal Setting - Compliance Strategies, Problem Solving/Goal Setting - Treatment/Management Goals Individuals Taught : Patient Barriers to Learning : None evident Teaching Method : Explanation Teaching Evaluation : Verbalizes understanding ATIYA FELIPE CNP - 06/09/2014 14:58 CDT Comprehensive Program Goals Diabetes Education Goals Grid Diabetes Education Goal #1 row Diabetes Education Goal #2 row Diabetes Education Goal #3 row Date Goal Set : 06/09/2014 CDT 06/09/2014 CDT 06/09/2014 CDT Goal : A1c less than 8.0 weight loss regular exercise Related Content Area : Medication Healthy eating Exercise/activity ATIYA FELIPE CNP - 06/09/2014 14:58 CDT ATIYA FELIPE CNP - 06/09/2014 14:58 CDT AMARILYS FELIPE CNP - 06/09/2014 14:58 CDT Source: [facility] [employer] Document Id: [id number] CDT!38 Atiya Felipe APRN, C.N.P. - 06/09/2014 2:34 PM CDT Ambulatory Patient Education The following Patient Education Materials have been given to the patient: Patient Education Materials: Podiatry Diabetes: Inspecting Your Feet Podiatry Diabetes: Inspecting Your Feet Diabetes increases your chances of developing foot problems. So inspect your feet every day. This helps you find small skin irritations before they become serious infections. If you have trouble seeingthe bottoms of your feet, use a mirror or ask a family member or friend to help. Pressure spots on the bottom of the foot are common areas where problems develop. How to Check Your Feet Below are tips to help you look for foot problems. Try to check your feet at the same time each day,such as when you get out of bed in the morning. ?? Check the top of each foot. The tops of toes, back of the heel, and outer edge of the foot can get a lot of rubbing from poor-fitting shoes. ?? Check the bottom of each foot. Daily wear and tear often leads to problems at pressure spots. ?? Check the toes and nails. Fungal infections often occur between toes. Toenail problems can also be a sign of fungal infections or lead to breaks in the skin. ?? Check your shoes, too. Loose objects inside a shoe can injure the foot. Use your hand to feel inside your shoes for things like davida, loose stitching, or rough areas that could irritate your skin. Warning Signs Look for any color changes in the foot. Redness with streaks can signal a severe infection, which needs immediate medical attention. Tell your doctor right away if you have any of these problems: ?? Swelling, sometimes with color changes, may be a sign of poor blood flow or infection. Symptoms include tenderness and an increase in the size of your foot. ?? Warm or hot areas on your feet may be signs of infection. A foot that is cold may not be getting enough blood. ?? Sensations such as burning, tingling, or pins and needles can be signs of a problem. Also check for areas that may be numb. ?? Hot spots are caused by friction or pressure. Look for hot spots in areas that get a lot of rubbing. Hot spots can turn into blisters, calluses, or sores. ?? Cracks and sores are caused by dry or irritated skin. They are a sign that the skin is breaking down, which can lead to infection. ?? Toenail problems to watch for include nails growing into the skin (ingrown toenail) and causing redness or pain. Thick, yellow, or discolored nails can signal a fungal infection. ?? Drainage and odor can develop from untreated sores and ulcers. Call your doctor right away if younotice white or yellow drainage, bleeding, or unpleasant odor. ?? [id number] [place] [address]. All rights reserved. This information is not intended as a substitute for professional medical care. Always follow your healthcare professional's instructions. This document has images extracted. Please consider using [facility] for all your patient education needs. Source: [facility] Document Id: [id number] documented in this encounter Miscellaneous Notes Miscellaneous - Diana French, RIvelisse. - 09/05/2014 4:42 PM CST ciclopirox Document Contains Addenda Addendum by SHEA TIM LPN on 06 September 2014 08:18:24 DATA CONTROL CLERK SUPERVISOR Notified. Addendum by ATIYA FELIPE CNP on 06 September 2014 08:03:38 DATA CONTROL CLERK SUPERVISOR From: ATIYA FELIPE CNP To: DANIEL Felipe Nurse; Sent: 09/06/2014 08:03:38 DATA CONTROL CLERK SUPERVISOR Subject: RE: ciclopirox done Addendum by ATIYA FELIPE CNP on 06 September 2014 08:03:26 DATA CONTROL CLERK SUPERVISOR From: ATIYA FELIPE SOLAR PV INSTALLER To: FB [place] Medication Refill; Sent: 09/06/2014 08:03:26 DATA CONTROL CLERK SUPERVISOR Subject: RE: ciclopirox done From: DIANA FRENCH (FB [place] Medication Refill) To: ATIYA FELIPE SOLAR PV INSTALLER; Sent: 09/05/2014 16:42:51 DATA CONTROL CLERK SUPERVISOR Subject: ciclopirox Caller is: ( ) Patient ( ) Mother ( ) Father ( ) Spouse ( ) Daughter ( ) Son ( [facility] ) Pharmacy ( ) Other: Provider: marika Pharmacy: Name of Medications Needing Refill: ciclopirox 0.77%cream Last Refill Date: 11/19/12 qty 90 Additional Information: apply to affected area BID....med on inactive list... Last / Future Appointment: 06/09/14 Disposition: ( x ) Send to Pharmacy ( ) Call to Pharmacy ( ) Patient will cotton picker Script ( ) Mail Rxto Patient Source: [facility] P[facility] Document Id: [id number] Electronically signed by Conversion, [facility] Traffic Administrator [id number] at 02/11/2017 7:47 PM CDT Miscellaneous - Atiya Felipe, BRET, C.N.P. - 06/09/2014 3:18 PM CDT Schedule Follow-Up Visit 09 June 2014 CALI MURPHY [id number] [facility] [id number] Dear CALI MURPHY, Thank you for choosing [facility] for your health care needs. You recently had laboratory work performed to assess your overall health. This letter contains the results of your testing and standard ranges to help explain the results. I will send a new prescription for Janumet which is acombination for metformin and Januvia. You will take it twice a day. Discontinue metformin. I recommend follow-up A1c test in 3 months as we previously discussed. If you have questions prior to our appointment, please contact our office. Result Name Current Result Normal Range Hgb A1c (% A1C) (H) 8.4 06/09/2014 - <=5.6 Sincerely, ATIYA FELIPE [address] [facility] [place] [address] Electronic Signature Electronically Signed By: ATIYA FELIPE CNP On: 09 June 2014 This document has images extracted. Source: [facility] [employer] Document Id: [id number] Miscellaneous - Atiya Felipe APRN, C.N.P. - 06/09/2014 3:00 PM CDT Quality Measures Quality Measures Entered On: 06/09/2014 15:00 CDT Performed On: 06/09/2014 15:00 CDT by ATIYA FELIPE CNP Diabetes Date of Last Foot Exam : 06/09/2014 CDT Date of Last Diabetes Education : 06/09/2014 CDT ATIYA FELIPE CNP - 06/09/2014 15:00 CDT Foot Exam Grid Left foot exam Right foot exam Dorsalis Pedis Pulse : Normal Normal Capillary Refill : Less than 3 seconds Less than 3 seconds 10 gm Monofilament Sensation Check : Intact Intact ATIYA FELIPE CNP - 06/09/2014 15:00 CDT ATIYA FELIPE CNP - 06/09/2014 15:00 CDT Source: [facility] [employer] Document Id: [id number] CDT!13 Miscellaneous - Atiya Felipe APRN, C.N.P. - 06/09/2014 2:34 PM CDT Ambulatory Patient Summary [address] [place], [place] [id number] Visit Information Name: CALI MURPHY [facility] Number: [id number] Current Date: 06/09/2014 14:34:46 Physicians Attending Provider: ATIYA FELIPE CNP Primary Care Provider: PCP, UNASSIGNED - FB CALI MURPHY has been given the following [...] 1 kahlil, Topical, two times a day glimepiride (glimepiride 4 mg oral tablet) 1.5 Tablet(s), Oral, once a day with breakfast metFORMIN (metformin 500 mg oral tablet, extended release) 2 Tablet(s), Oral, two times a day multivitamin (multivitamin) once a day omeprazole-sodium bicarbonate (Zegerid OTC) 1 cap, Oral, once a day valsartan (Diovan 80 mg oral tablet) 1 Tablet(s), Oral, once a day Routed to [facility] , Stop Taking the Following Medications: Medication list as of 06-09-14 14:34 Attention: If you have any medications at [...] Electronically Signed By: ATIYA FELIPE CNP Signed On:09-JUN-2014 14:34:14 Your Allergies & Intolerances Substance Reaction Symptoms Category Comments lisinopril Cough Drug Your Problem List Problem Status Onset Comments Morbid Obesity (BMI > 40) (V85.4) Active Hernia, ventral, unspecified Active Diabetes mellitus II, uncontrolled (also use V58.67 if pt has fpc (current insulin use) [id number]/23/2012 Psoriasis Active 01/26/2013 Hypertension (HTN) NOS Active Your Upcoming Appointments Date Time Location Provider No Appointments found Attention: Contact your local Clinic if further appointment detail needed. Diabetes: Inspecting Your Feet Diabetes increases your chances of developing foot problems. So inspect your feet every day. This helps you find small skin irritations before they become serious infections. If you have trouble seeingthe bottoms of your feet, use a mirror or ask a family member or friend to help. Pressure spots on the bottom of the foot are common areas where problems develop. How to Check Your Feet Below are tips to help you look for foot problems. Try to check your feet at the same time each day,such as when you get out of bed in the morning. ?? Check the top of each foot. The tops of toes, back of the heel, and outer edge of the foot can get a lot of rubbing from poor-fitting shoes. ?? Check the bottom of each foot. Daily wear and tear often leads to problems at pressure spots. ?? Check the toes and nails. Fungal infections often occur between toes. Toenail problems can also be a sign of fungal infections or lead to breaks in the skin. ?? Check your shoes, too. Loose objects inside a shoe can injure the foot. Use your hand to feel inside your shoes for things like davida, loose stitching, or rough areas that could irritate your skin. Warning Signs Look for any color changes in the foot. Redness with streaks can signal a severe infection, which needs immediate medical attention. Tell your doctor right away if you have any of these problems: ?? Swelling, sometimes with color changes, may be a sign of poor blood flow or infection. Symptoms include tenderness and an increase in the size of your foot. ?? Warm or hot areas on your feet may be signs of infection. A foot that is cold may not be getting enough blood. ?? Sensations such as burning, tingling, or pins and needles can be signs of a problem. Also check for areas that may be numb. ?? Hot spots are caused by friction or pressure. Look for hot spots in areas that get a lot of rubbing. Hot spots can turn into blisters, calluses, or sores. ?? Cracks and sores are caused by dry or irritated skin. They are a sign that the skin is breaking down, which can lead to infection. ?? Toenail problems to watch for include nails growing into the skin (ingrown toenail) and causing redness or pain. Thick, yellow, or discolored nails can signal a fungal infection. ?? Drainage and odor can develop from untreated sores and ulcers. Call your doctor right away if younotice white or yellow drainage, bleeding, or unpleasant odor. ?? [id number] Devorah Coyle, [address] [place] [address], [place] [address]. All rights reserved. This information is not intended as a substitute for professional medical care. Always follow your healthcare professional's instructions. Your Goals/Additional instructions: This document has images extracted. Please consider using [facility] for all your patient education needs. Source: [facility] Document Id: [id number] Miscellaneous - Atiya Felipe APRN, C.N.P. - 06/09/2014 2:34 PM CDT Ambulatory Discharge Medication List [address] [id number] Visit Information Name: PIYUSH CALIJeanie LU [facility] Number: [id number] Visit Date: 06/09/2014 14:34:44 Attending Provider: ATIYA FELIPE CNP Primary Care Provider: PCP, UNASSIGNED - FB CALI MURPHY has been given the following [...] 1 kahlil, Topical, two times a day glimepiride (glimepiride 4 mg oral tablet) 1.5 Tablet(s), Oral, once a day with breakfast metFORMIN (metformin 500 mg oral tablet, extended release) 2 Tablet(s), Oral, two times a day multivitamin (multivitamin) once a day omeprazole-sodium bicarbonate (Zegerid OTC) 1 cap, Oral, once a day valsartan (Diovan 80 mg oral tablet) 1 Tablet(s), Oral, once a day Routed to [facility] , Stop Taking the Following Medications: Medication list as of 06-09-14 14:34 Attention: If you have any medications at [...] of emergency. Electronically Signed By: ATIYA FELIPE SOLAR PV INSTALLER Signed On:09-JUN-2014 14:34:14 Additional Information: Source: [facility] Document Id: [id number] Miscellaneous - Isabelle Marcum, C.MBonABon - 06/09/2014 2:13 PM CDT Adult Automatic Grinder Operator Intake/History Adult Automatic Grinder Operator Intake/History Entered On: 06/09/2014 14:19 CDT Performed On: 06/09/2014 14:13 CDT by ISABELLE MARCUM Intake Chief Complaint : Tendonitis in left arm; headaches 3-4 times a week for the past 3 weeks; nerve pain in legs ongoing; diabetes recheck. Temperature Core : 36.2 DegC(Converted to: 97.2 DegF) (LOW) Peripheral Pulse Rate : 84 /min Respiratory Rate : 16 /min Heart Rhythm : Regular Systolic Blood Pressure : 138 mmHg Diastolic Blood Pressure : 78 mmHg NIBP Mean : 98 mmHg BP Location : Left upper extremity Height : 169 cm(Converted to: 5 ft 7 inch(es), 67 inch(es)) Actual Weight : 154.5 kg(Converted to: 340 lb 10 oz) Dosing Weight Clinic : 154.5 kg Clinic BSA : 2.69 Body Mass Index : 54.09 kg/m2 ISABELLE MARCUM - 06/09/2014 14:13 CDT General Info Languages : Mongolian Is Patient Female and 13-50 no hysterectomy : No ISABELLE MARCUM - 06/09/2014 14:13 CDT Subjective Pain Symptoms : Yes ISABELLE MARCUM - 06/09/2014 14:13 CDT Pain Pain Assessment Grid Pain 1 Pain 2 Location : Lower arm Head Laterality : Right Other: across the back of the skull Intensity : 5 7 ISABELLE MARCUM - 06/09/2014 14:13 CDT ISABELLE MARCUM - 06/09/2014 14:13 CDT Dependent Habits Tobacco Use/Currently Using : No Exposure to Tobacco Smoke : Patient smokes Smoking Status : Light tobacco smoker ISABELLE MARCUM - 06/09/2014 14:13 CDT Tobacco Use Grid Type : Cigars Other Tobacco Frequency : Occasional cigar ISABELLE MARCUM - 06/09/2014 14:13 CDT Caffeine Use Grid Caffeine Use : Current Type : Chocolate, Coffee, Soft drinks, Tea Frequency : Daily ISABELLE MARCUM - 06/09/2014 14:13 CDT Recreational Drug Use Grid Drug Use : None ISABELLE MARCUM - 06/09/2014 14:13 CDT [facility] [place] Document Id: [id number] CDT!47 Miscellaneous - Atiya Felipe, BRET, C.N.P. - 12/17/2013 3:12 PM CDT Quality Measures Quality Measures Entered On: 06/09/2014 15:12 CDT Performed On: 12/17/2013 15:12 CDT by ATIYA FELIPE CNP Diabetes Date of Last Eye Exam : 12/17/2013 CDT ATIYA FELIPE CNP - 06/09/2014 15:12 CDT Source: [facility] Document Id: [id number] CDT!3 documented in this encounter Plan of Treatment Upcoming Encounters Date Type Specialty Care Team Description 06/26/2022 Appointment Neurology Preet Landeros M.D . [address] [place] [phone] Bria Suh APRN, C.N.P., M.S.N. [address] [place] [phone] 07/25/2022 Appointment Radiology Preet Landeros M.D . [address] [place], [place] [phone] (Wo rk) documented as of this encounter Procedures Procedure Name Priority Date/Time Associated Diagnosis Comme nts HEMOGLOBIN A1C, B Routine 06/09/2014 2:53 PM Resu lts for this CDT procedure are i n the results section. documented in this encounter Results (ABNORMAL) Hemoglobin A1c (06/09/2014 2:53 PM CDT) P athologist Signature Hemoglobin A1c, 8.4 (H) <=5.6 A1C POWERCHART B Specimen (Source) Anatomical Collection Method Collection Time Re ceived Time Location / / Volume Laterality Blood 06/09/2014 2:53 PM CDT Atiya Felipe APRN, C.N.P. LAB BLOOD ADD-ON Performing Organization Address City/State/ZIP Code Phon e Number POWERCHART documented in this encounter Visit Diagnoses Not on filedocumented in this encounter
--- OUTSIDE RECORDS SUMMARY | 2022-06-23 22:46 | XMS_ITS | Encounter Summary ---
:1970 Author Organization [facility] Address [address] [place] [address] Care Team Providers Name Role Phone Unavailable Primary Care Provider Unavailable Encounter Details Date Type Department Care Team Description 10/26/2015 Hospital Encounter HX [facility] MyrMayra andres, TUBE BUILDER, C.N.P. [address], [place] [address] (Wo rk) Social History Tobacco [...] Reading Time Taken Comments Blood Pressure 128/72 10/26/2015 10:28 AM INSTRUCTIONAL MEDIA SERVICES TECHNICIAN Pulse 78 10/26/2015 10:28 AM INSTRUCTIONAL MEDIA SERVICES TECHNICIAN Temperature - - Respiratory Rate 14 10/26/2015 10:28 AM INSTRUCTIONAL MEDIA SERVICES TECHNICIAN Oxygen Saturation - - Inhaled Oxygen Concentration - - Weight 152 kg (335 lb 1.6 oz) 10/26/2015 10:28 AM INSTRUCTIONAL MEDIA SERVICES TECHNICIAN Height 169 cm (5' 6.54) 10/26/2015 10:28 AM INSTRUCTIONAL MEDIA SERVICES TECHNICIAN Body Mass Index 53.22 10/26/2015 10:28 AM INSTRUCTIONAL MEDIA SERVICES TECHNICIAN documented in this encounter Medications at Time [...] of this encounter Progress Notes Atiya Felipe, TUBE BUILDER, C.N.P. - 10/26/2015 11:24 AM CST Clinic Full Note CHIEF COMPLAINT/REASON FOR VISIT Diabetic Recheck HISTORY OF PRESENT ILLNESS Cali is here for diabetes recheck. He is only checking blood sugar twice weekly. Blood sugars have been in the 200s. Today we discussed stopping Januvia and starting Novolog insulin at supper. He isdue for eye exam and will schedule in [place]. He has hypertension, stable on Diovan 80 mg daily.He is on atorvastatin for hyperlipidemia and tolerating it without adverse effect. MEDICATIONS aspirin, 81 mg, PO, Daily atorvastatin 10 mg oral tablet, 10 mg, 1 tab(s), PO, Bedtime, 3 refills Calcium 600+D, PO, 2xDay Diovan 80 mg oral tablet, 80 mg, 1 tab(s), PO, Daily, 3 refills fluticasone 50 mcg/inh nasal spray, 2 spray(s), Nostrils(Both), Daily, 11 refills glimepiride 4 mg oral tablet, 8 mg, 2 tab(s), with breakfast-, PO, Daily, 0 refills Januvia 100 mg oral tablet, 100 mg, 1 tab(s), PO, Daily, 3 refills Lantus Solostar Pen 100 units/mL subcutaneous solution, 25 units, Subcut., Bedtime, 6 refills Lidex 0.05% topical gel, 1 kahlil, Topical, 2xDay, 1 refills multivitamin, Daily ProAir HFA 90 mcg/inh inhalation aerosol, 2 puff(s), Inhalation, 4xDay, PRN, 2 refills Zegerid OTC, 1 cap(s), PO, Daily Zyrtec 10 mg oral tablet, PRN ALLERGIES lisinopril (Cough) PAST MEDICAL HISTORY Chronic Diabetes mellitus II, uncontrolled (also use V58.67 if pt has senior software engineer analytics (current insulin use) Diabetes mellitus type II Eczema NOS Hernia, ventral, unspecified Hyperlipidemia NOS Hypertension (HTN) NOS Drapery Cutter Machine Use Of Insulin Active Residential Use 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 (05/29/2011), Appendectomy (10/30/1984). SOCIAL HISTORY Date Time: 10/26/2015 10:28 Tobacco: Smoking Status: Former smoker Exposure: Other: Quit fall Alcohol: Use: No Results Found Recreational Drugs: Use: None Type: No Results Found FAMILY HISTORY Brother:Positive: Diabetes mellitus HEALTH MAINTENANCE Flu shot given. SYSTEMS REVIEW Positive for that mentioned in the History of Present Illness and Past Medical History. All other systems were reviewed and were negative. VITAL SIGNS T: 36.6 ??C (Core) HR: 78 RR: 14 BP: 128 / 72 HT: 169 cm WT: 152 kg BMI: 53.22 PHYSICAL EXAMINATION GENERAL: Well-developed, well-nourished, in no acute distress. SKIN: Warm and dry. HEENT: TMs clear. Throat clear. NECK: Supple. No lymphadenopathy or thyromegaly. HEART: Regular rate and rhythm. S1, S2. No murmur. LUNGS: Clear to auscultation. No wheezes or rales. ABDOMEN: Soft, nontender. No hepatosplenomegaly. EXTREMITIES: Warm, dry. No peripheral edema. Normal sensation tops and bottoms of feet with monofilament. LAB RESULTS A1C is pending. IMPRESSION/REPORT/PLAN Diabetes mellitus II, uncontrolled (also use V58.67 if pt has fpc (current insulin use) Uncontrolled. Discontinue Januvia. Decrease glimepiride to 4 mg in the morning. Add Novolog [id number] units at supper. Message me in the Patient Portal with blood sugars in 4 days. Diabetes educationdone today. Please see Chauffeur Intake form in the EHR. Recheck A1c in 3 months. Ordered: OV Est Pt Level 4 - 67470 - 25 min Encounter for immunization Flu shot given. Ordered: influenza virus vaccine, inactivated, 0.5 mL, IM, Once, 10/26/15 11:01:00 INSTRUCTIONAL MEDIA SERVICES TECHNICIAN influenza virus vaccine QUAD, inactivated (Influenza virus vaccine, inactive, 3 yrs, PF) charge OV Est Pt Level 4 - 48172 - 25 min Hyperlipidemia NOS Stable on atorvastatin, no change in medication. Ordered: OV Est Pt Level 4 - 12416 - 25 min Hypertension (HTN) NOS Well controlled on Diovan. Ordered: OV Est Pt Level 4 - 69790 - 25 min Residential Use Of Insulin Active Continue Lantus insulin 30 units daily. Ordered: OV Est Pt Level 4 - 60745 - 25 min Orders: atorvastatin, 10 mg = 1 tab(s), PO, Bedtime, # 90 tab(s), 3 Refill(s), Maintenance, Pharmacy: [id number], Does not need refill today. glimepiride, 4 mg = 1 tab(s), PO, Daily, with breakfast-, # 90 tab(s), 3 Refill(s), Maintenance, Pharmacy: [id number] insulin aspart, 10 units, Subcut., Daily, before dinner E11.65; Z79.4, # 15 mL, 3 Refill(s), Maintenance, Pharmacy: [id number] insulin glargine, 30 units, Subcut., Bedtime, # 15 mL, 6 Refill(s), Maintenance, Pharmacy: [id number] Electronically Signed By: ATIYA FELIPE APRN, CNP On: 10/26/2015 11:33 AM Source: [facility] POWERCHART Document Id: [id number] RUCTIONAL MEDIA SERVICES TECHNICIAN documented in this encounter Nursing Notes Atiya Felipe APRN, C.N.P. - 10/26/2015 11:37 AM CST Chauffeur Intake (Adult) Chauffeur Intake (Adult) Entered On: 10/26/2015 11:39 INSTRUCTIONAL MEDIA SERVICES TECHNICIAN Performed On: 10/26/2015 11:37 INSTRUCTIONAL MEDIA SERVICES TECHNICIAN by ATIYA FELIPE APRN, CNP Assessment Program Type : Non-Program Diabetes Referring Provider : ATIYA FELIPE CNP Special needs : None Method Used for DSME : Individual Last Educator Visit Date : 10/26/2015 INSTRUCTIONAL MEDIA SERVICES TECHNICIAN Diabetes Type : Type 2 19 years and older Ethnicity : White/ Diabetes Onset : 1999 Current Treatment : Insulin pen, Oral agents Medication Compliance : Takes meds as prescribed Diabetes Medications Reviewed : Yes Medication Categories : Biguanide, Insulin, Sulfonylurea Exercise Type : None Time Spent With Patient : 15 Minutes ATIYA FELIPE APRN, CNP - 10/26/2015 11:37 INSTRUCTIONAL MEDIA SERVICES TECHNICIAN Education Diabetes Education Grid Topics : Medications/Effectiveness - Insulin, Medications/Effectiveness - Insulin Administration, Medications/Effectiveness - Insulin Dose Adjustment, Monitoring - Urine Ketone, Using Results - Urine Ketone, Problem Solving/Goal Setting - Compliance Strategies Individuals Taught : Patient Barriers to Learning : None evident Teaching Method : Demonstration, Explanation, Printed materials Teaching Evaluation : Needs reinforcement, Verbalizes understanding ATIYA FELIPE APRN, CNP - 10/26/2015 11:37 INSTRUCTIONAL MEDIA SERVICES TECHNICIAN Comprehensive Program Goals Diabetes Education Goals Grid Diabetes Education Goal #1 row Diabetes Education Goal #2 row Diabetes Education Goal #3 row Date Goal Set : 10/26/2015 INSTRUCTIONAL MEDIA SERVICES TECHNICIAN 10/26/2015 INSTRUCTIONAL MEDIA SERVICES TECHNICIAN 10/26/2015 INSTRUCTIONAL MEDIA SERVICES TECHNICIAN Goal : A1c less than 7-8 On statin therapy regular exercise Related Content Area : Medication Reducing risks Exercise/activity ATIYA FELIPE APRN [facility] - 10/26/2015 11:37 INSTRUCTIONAL MEDIA SERVICES TECHNICIAN ATIYA FELIPE APRN [facility] - 10/26/2015 11:37 INSTRUCTIONAL MEDIA SERVICES TECHNICIAN ATIYA FELIPE APRN [facility] - 10/26/2015 11:37 INSTRUCTIONAL MEDIA SERVICES TECHNICIAN Source: [facility] [employer]k Document Id: [id number] INSTRUCTIONAL MEDIA SERVICES TECHNICIAN!38 RUCTIONAL MEDIA SERVICES TECHNICIAN Atiya Felipe APRN, C.N.P. - 10/26/2015 11:13 AM CST Ambulatory Patient Education The following Patient [...] yellow drainage, bleeding, or unpleasant odor. ?? [phone] [facility], [address] [place] [address]. All rights reserved. This information is not intended as a substitute for professional medical care. Always follow your healthcare professional's instructions. This document has images extracted. Please consider using [employer] for all your patient education needs. Source: [facility] POWERCHART Document Id: [id number] RUCTIONAL MEDIA SERVICES TECHNICIAN documented in this encounter Miscellaneous Notes Telephone Encounter - Debo Tim L.P.N. - 10/31/2015 11:49 AM INSTRUCTIONAL MEDIA SERVICES TECHNICIAN MRI Document Contains Addenda Addendum by DEBO TIM LPN on 31 October 2015 14:21:02 INSTRUCTIONAL MEDIA SERVICES TECHNICIAN Faxed MRI order to [facility] along with demographic to [phone]. Addendum by ATIYA FELIPE APRN, CNP on 31 October 2015 13:26:23 INSTRUCTIONAL MEDIA SERVICES TECHNICIAN From: ATIYA FELIPE APRN, CNP To: DANIEL Felipe Nurse; Sent: 10/31/2015 13:26:23 INSTRUCTIONAL MEDIA SERVICES TECHNICIAN Subject: RE: MRI Noted. From: DEBO TIM LPN ( [place] Nurse) To: ATIYA FELIPE APRN, CNP; Sent: 10/31/2015 11:49:08 INSTRUCTIONAL MEDIA SERVICES TECHNICIAN Subject: MRI Caller is: ( ) Patient ( ) Mother ( ) Father ( ) Spouse ( ) Daughter ( ) Son ( ) Pharmacy ( x [facility] ) Other: Physician: Atiya Felipe APRN CNP Patient MRN #: Reason for Call: Message: Tutu from [facility] called and stated that Cali did not fit in the MRI machine. They contacted [facility] and they have a wide board machine that Cali would fit in. Need order and referral for [place]. and . Advice/Action: Source used: ( ) Verbalizes understanding [...] back cell phone number ( ) Source: [facility] POWERCHART Document Id: [id number] Miscellaneous - Debo Tim L.PBonN. - 10/26/2015 2:27 PM CST MRI Screening Questionnaire MRI Screening Questionnaire Entered On: 10/26/2015 14:32 INSTRUCTIONAL MEDIA SERVICES TECHNICIAN Performed On: 10/26/2015 14:27 INSTRUCTIONAL MEDIA SERVICES TECHNICIAN by DEBO TIM LPN MRI Questionnaire Previous MRI, CT, or X-rays Done : Yes Location of previous MRI, CTor X-ray : CT scan 2 weeks ago at [facility] and Ultrasound today. Previous Films Requested : Yes DEBO TIM LPN - 10/26/2015 14:27 INSTRUCTIONAL MEDIA SERVICES TECHNICIAN MRI Cannot be Done Grid Automated Internal Cardiac Defibrillator : No Brain aneurysm clips : No Cochlear implant : No History of pacemaker : No Implants with a magnet : No Internal electrodes/wires : No Neurostimulator/Biostimulator : No [place] carmela catheter : No DEBO TIM LPN 10/26/2015 14:27 INSTRUCTIONAL MEDIA SERVICES TECHNICIAN Patient Weight > 350 lbs : No DEBO TIM LPN 10/26/2015 14:27 INSTRUCTIONAL MEDIA SERVICES TECHNICIAN MRI Risk Factors Grid Patient is greater than 69 years old : No Diabetes (document medication) : Yes History of Kidney/Liver Transplant : No History of Renal Disease : No Hypertension : Yes Receiving Dialysis : No DEBO TIM LPN - 10/26/2015 14:27 INSTRUCTIONAL MEDIA SERVICES TECHNICIAN Creatinine/GFR Results Completed : Pending DEBO TIM LPN 10/26/2015 14:27 INSTRUCTIONAL MEDIA SERVICES TECHNICIAN MRI Implants, Devices, Conditions Grid Aneurysm clip : No Control Implants (IUD, diaphragm) : No Intravascular Coil, Filter or Stent : No Drug Infusion Pump : No External Pain Control Device : No Intravascular Catheter/Port : No Magnetic/Elec/Mech Activated Implant : No Prosthesis/Metal Implanted Surgical : No Metal Fragments in Body : No Bullets/BB's/Shrapnel in Body : No Tattoos/Perm Make-Up/Body Jewelry : No Hearing Aids/Dentures/Partial Plates : No History of cancer : No Eye Surgery/Implant : No Inner Ear Surgery/Implant : No Transdermal Med or EKG Patches : No Shunt : No Penile Implant : No Breast Tissue Script Coordinator/Implant : No : No (document number of weeks in Comment) : No Surgery : Yes (Comment: Appendectomy 1983, Hernia 2011 [DEBO TIM LPN - 10/26/2015 14:27 INSTRUCTIONAL MEDIA SERVICES TECHNICIAN] ) DEBO TIM LPN - 10/26/2015 14:27 INSTRUCTIONAL MEDIA SERVICES TECHNICIAN Claustrophobic : No Pain/Unable to Lay Still : No Metal In or Removed from Eyes Ever : No Form Completed : Yes DEBO TIM MACEY - 10/26/2015 14:27 INSTRUCTIONAL MEDIA SERVICES TECHNICIAN Source: [facility] Document Id: [id number] INSTRUCTIONAL MEDIA SERVICES TECHNICIAN!50 RUCTIONAL MEDIA SERVICES TECHNICIAN Miscellaneous - Atiya Felipe APRN, C.N.P. - 10/26/2015 11:37 AM INSTRUCTIONAL MEDIA SERVICES TECHNICIAN Quality Measures Quality Measures Entered On: 10/26/2015 11:37 INSTRUCTIONAL MEDIA SERVICES TECHNICIAN Performed On: 10/26/2015 11:37 INSTRUCTIONAL MEDIA SERVICES TECHNICIAN by ATIYA FELIPE APRN, CNP Diabetes Date of Last Foot Exam : 10/26/2015 INSTRUCTIONAL MEDIA SERVICES TECHNICIAN Date of Last Diabetes Education : 10/26/2015 INSTRUCTIONAL MEDIA SERVICES TECHNICIAN ATIYA FELIPE APRN, CNP - 10/26/2015 11:37 INSTRUCTIONAL MEDIA SERVICES TECHNICIAN Foot Exam Grid Left foot exam Right foot exam Dorsalis Pedis Pulse : Normal Normal Capillary Refill : Less than 3 seconds Less than 3 seconds 10 gm Monofilament Sensation Check : Intact Intact ATIYA FELIPE APRN, CNP - 10/26/2015 11:37 INSTRUCTIONAL MEDIA SERVICES TECHNICIAN ATIYA FELIPE APRN, CNP - 10/26/2015 11:37 INSTRUCTIONAL MEDIA SERVICES TECHNICIAN Source: [facility] Document Id: [id number] INSTRUCTIONAL MEDIA SERVICES TECHNICIAN!13 RUCTIONAL MEDIA SERVICES TECHNICIAN Miscellaneous - Atiya Felipe APRN, C.N.P. - 10/26/2015 11:13 AM INSTRUCTIONAL MEDIA SERVICES TECHNICIAN Ambulatory Patient Summary [address] [id number] Visit Information Name: CALI MURPHY [facility] Number: [id number] Current Date: 10/26/2015 11:13:15 Physicians Attending Provider: ATIYA FELIPE APRN, CNP Primary Care Provider: ATIYA FELIPE APRN PHOTOGRAMMETRIC ENGINEER CALI MURPHY has been given the following [...] once a day (at bedtime) Routed to [facility] , calcium-vitamin D (Calcium 600+D) Oral, two times a day cetirizine (Zyrtec 10 mg oral tablet) as needed for Allergy symptoms fluocinonide topical (Lidex 0.05% topical gel) 1 kahlil, Topical, two times a day fluticasone nasal (fluticasone 50 mcg/inh nasal spray) 2 [place](s), Nostrils(Both), once a day glimepiride (glimepiride 4 mg oral tablet) 1 Tablet(s), Oral, once a day with breakfast- This is a CHANGE Routed to [facility] , insulin aspart (NovoLOG FlexPen 100 units/mL subcutaneous solution) 10 units, Subcutaneous, once a day before dinner E11.65; Z79.4 New Routed to [facility] , insulin glargine (Lantus Solostar Pen 100 units/mL subcutaneous solution) 30 units, Subcutaneous, once a day (at bedtime) This is a CHANGE multivitamin (multivitamin) once a day omeprazole-sodium bicarbonate (Zegerid OTC) 1 cap, Oral, once a day valsartan (Diovan 80 mg oral tablet) 1 Tablet(s), Oral, once a day Stop Taking the Following Medications: Medication list as of 10-26-15 11:13 Attention: If you have any medications at [...] Signed By: ATIYA FELIPE APRN, CNP Signed On:26-OCT-2015 11:12:46 Your Allergies & Intolerances Substance Reaction Symptoms Category Comments lisinopril Cough Drug Your Problem List Problem Status Onset Comments Morbid Obesity (BMI > 40) (V85.4) Active Hernia, ventral, unspecified Active Diabetes mellitus II, uncontrolled (also use V58.67 if pt has fpc (current insulin use) [id number]/23/2012 Psoriasis Active 01/26/2013 Hypertension (HTN) NOS Active Eczema NOS Active Drapery Cutter Machine Use Of Insulin Active Active Hyperlipidemia NOS Active Your Upcoming Appointments Date Time Location Provider 11/06/2015 10:30 [facility] Robbie Garcia MD Attention: Contact [...] yellow drainage, bleeding, or unpleasant odor. ?? [phone] [facility], [address] [place] [address], [place] [address]. All rights reserved. This information is not [...] if you dont have one. Go to [email or web address] and click on Create Your Account. Then, follow the directions to complete the online form. Youll be asked for your [facility] number which you can find at the top of this document. Your Goals/Additional instructions: This document has images extracted. Please consider using [employer] for all your patient education needs. Source: [facility] POWERCHART Document Id: [id number] RUCTIONAL MEDIA SERVICES TECHNICIAN Miscellaneous - Atiya Felipe APRN, C.N.P. - 10/26/2015 11:13 AM INSTRUCTIONAL MEDIA SERVICES TECHNICIAN Ambulatory Discharge Medication List [address] [id number] Visit Information Name: CALI MURPHY [facility] Number: [id number] Visit Date: 10/26/2015 11:13:13 Attending Provider: ATIYA FELIPE APRN PHOTOGRAMMETRIC ENGINEER Primary Care Provider: ATIYA FELIPE APRN PHOTOGRAMMETRIC ENGINEER CALI MURPHY has been given the following [...] once a day (at bedtime) Routed to [facility] , calcium-vitamin D (Calcium 600+D) Oral, two times a day cetirizine (Zyrtec 10 mg oral tablet) as needed for Allergy symptoms fluocinonide topical (Lidex 0.05% topical gel) 1 kahlil, Topical, two times a day fluticasone nasal (fluticasone 50 mcg/inh nasal spray) 2 [place]o(s), Nostrils(Both), once a day glimepiride (glimepiride 4 mg oral tablet) 1 Tablet(s), Oral, once a day with breakfast- This is a CHANGE Routed to [facility] , insulin aspart (NovoLOG FlexPen 100 units/mL subcutaneous solution) 10 units, Subcutaneous, once a day before dinner E11.65; Z79.4 New Routed to [facility] , insulin glargine (Lantus Solostar Pen 100 units/mL subcutaneous solution) 30 units, Subcutaneous, once a day (at bedtime) This is a CHANGE multivitamin (multivitamin) once a day omeprazole-sodium bicarbonate (Zegerid OTC) 1 cap, Oral, once a day valsartan (Diovan 80 mg oral tablet) 1 Tablet(s), Oral, once a day Stop Taking the Following Medications: Medication list as of 10-26-15 11:13 Attention: If you have any medications at [...] emergency. Electronically Signed By: ATIYA FELIPE APRN PHOTOGRAMMETRIC ENGINEER Signed On:26-OCT-2015 11:12:46 Additional Information: Source: [facility] POWERCHART Document Id: [id number] RUCTIONAL MEDIA SERVICES TECHNICIAN Miscellaneous - Marika Luciano C.M.A. - 10/26/2015 10:28 AM CST Adult Movie Projectionist Intake/History Adult Movie Projectionist Intake/History Entered On: 10/26/2015 10:30 INSTRUCTIONAL MEDIA SERVICES TECHNICIAN Performed On: 10/26/2015 10:28 INSTRUCTIONAL MEDIA SERVICES TECHNICIAN by MARIKA LUCIANO WEATHERIZATION TECHNICIAN Intake Chief Complaint : Diabetic Recheck Temperature Core : 36.6 DegC(Converted to: 97.9 DegF) Peripheral Pulse Rate : 78 /min Respiratory Rate : 14 /min Heart Rhythm : Regular Systolic Blood Pressure : 128 mmHg Diastolic Blood Pressure : 72 mmHg NIBP Mean : 91 mmHg BP Location : Left upper extremity Blood Pressure Cuff Size : Large Height : 169 cm(Converted to: 5 ft 7 inch(es), 67 inch(es)) Actual Weight : 152 kg(Converted to: 335 lb 2 oz) Weight Source : Standing scale Dosing Weight Clinic : 152 kg Clinic BSA : 2.67 Body Mass Index : 53.22 kg/m2 MARIKA LUCIANO WEATHERIZATION TECHNICIAN - 10/26/2015 10:28 INSTRUCTIONAL MEDIA SERVICES TECHNICIAN General Info Information Given By : Patient Languages : Sami Is Patient Female and 13-50 no hysterectomy : No MARIKA LUCIANO [facility] - 10/26/2015 10:28 INSTRUCTIONAL MEDIA SERVICES TECHNICIAN Subjective Pain Symptoms : No MARIKA LUCIANO [facility] - 10/26/2015 10:28 INSTRUCTIONAL MEDIA SERVICES TECHNICIAN Dependent Habits Exposure to Tobacco Smoke : Other: Quit fall Smoking Status : Former smoker Tobacco 2A : Yes Tobacco Use/Currently Using : No Tobacco Use/Last 30 Days : No Tobacco Use/Last 12 months : Yes Type : Other: 4-5 cigars a year MARIKA LUCIANO [facility] - 10/26/2015 10:28 INSTRUCTIONAL MEDIA SERVICES TECHNICIAN Caffeine Use Grid Caffeine Use : Current Type : Chocolate, Coffee, Soft drinks, Tea Frequency : Daily MARIKA LUCIANO [facility] - 10/26/2015 10:28 INSTRUCTIONAL MEDIA SERVICES TECHNICIAN Recreational Drug Use Grid Drug Use : None MARIKA LUCIANO [facility] - 10/26/2015 10:28 INSTRUCTIONAL MEDIA SERVICES TECHNICIAN Source: [employer] Document Id: [id number] INSTRUCTIONAL MEDIA SERVICES TECHNICIAN!40 RUCTIONAL MEDIA SERVICES TECHNICIAN documented in this encounter Plan of Treatment Upcoming Encounters Date Type Specialty Care Team Description 06/26/2022 Appointment Neurology Preet Landeros M.D . [address] [place] [phone] Bria Suh APRN, C.N.P., M.S.N. [address] [place] [phone] 07/25/2022 Appointment Radiology Preet Landeros M.D . [address] [place] [phone] (Wo rk) documented as of this encounter Procedures Procedure Name Priority Date/Time Associated Comments Diagnosis CREATININE WITH Routine 10/26/2015 2:37 PM Result s for this EGFR, S/P INSTRUCTIONAL MEDIA SERVICES TECHNICIAN procedure are i n the results section. documented in this encounter Results Creatinine with eGFR (10/26/2015 2:37 PM INSTRUCTIONAL MEDIA SERVICES TECHNICIAN) P athologist Signature Creatinine 0.8 0.8 - 1.3 POWERCHART MGDL HXeGFR (MDRD) >60 >=60 POWERCHART [id number] eGFR >60 >=60 POWERCHART Black/ [id number] Finnish Specimen (Source) Anatomical Collection Method Collection Time Re ceived Time Location / / Volume Laterality Blood 10/26/2015 2:37 PM INSTRUCTIONAL MEDIA SERVICES TECHNICIAN Atiya Felipe APRN C.N.P. LAB BLOOD ADD-ON Performing Organization Address City/State/ZIP Code Phon e Number POWERCHART documented in this encounter Visit Diagnoses Not on filedocumented in this encounter Additional Health Concerns Assessment Noted Time PHQ-9 Depression Total Score: 4 04/20/2015 2:22 PM CDT documented as of this encounter
--- OUTSIDE RECORDS SUMMARY | 2022-06-23 22:47 | XMS_ITS | Encounter Summary ---
:1970 Author Organization [facility] Address [address] [place] [address] Care Team Providers Name Role Phone Unavailable Primary Care Provider Unavailable Encounter Details Date Type Department Care Team Description 04/16/2012 Hospital Encounter HX [facility] David Dsouza M .D. Social History Tobacco Use Types [...] of this encounter Miscellaneous Notes Miscellaneous - David Dsouza M.D. - 04/16/2012 9:36 AM CDT Results Notification Document Contains Addenda Addendum by PATRICK IBANEZ on 17 April 2012 17:27 CDT results mailed to patient. From: DAVID DSOUZA MD To: DAVID DSOUZA MD Sent: 04/16/2012 09:36:30 CDT ! Show up: 04/16/2012 14:36:30 [facility] Subject: Results Notification Actions: Notify patient of results Source: [facility] POWERCHART Document Id: [id number] Electronically signed by Ish, [facility] Analytical Chemistry Teacher [id number] at 02/15/2017 5:14 PM CDT documented in this encounter Plan of Treatment Upcoming Encounters Date Type Specialty Care Team Description 06/26/2022 Appointment Neurology Preet Landeros M.D . [address] [place] [phone] Bria Suh APRN, C.NBonP., M.S.N. [address] [place] [phone] 07/25/2022 Appointment Radiology Preet Landeros M.D . [address] [place], [place] [phone] (Wo rk) documented as of this encounter Procedures Procedure Name Priority Date/Time Associated Diagnosis Comme nts HEMOGLOBIN A1C, B Routine 04/16/2012 8:28 AM Resu lts for this CDT procedure are i n the results section. documented in this encounter Results (ABNORMAL) Hemoglobin A1c (04/16/2012 8:28 AM CDT) P athologist Signature Hemoglobin A1c, 8.2 (H) 4.0 - 6.0 POWERCHART B Specimen (Source) Anatomical Collection Method Collection Time Re ceived Time Location / / Volume Laterality Blood 04/16/2012 8:28 AM CDT David Dsouza M.D. LAB BLOOD ADD-ON Performing Organization Address City/State/ZIP Code Phon e Number POWERCHART documented in this encounter Visit Diagnoses Not on filedocumented in this encounter
--- OUTSIDE RECORDS SUMMARY | 2022-06-23 22:47 | XMS_ITS | Encounter Summary ---
:1970 Author Organization [facility] Address [address] [place] [address] Care Team Providers Name Role Phone Unavailable Primary Care Provider Unavailable Encounter Details Date Type Department Care Team Description 03/28/2011 Hospital Encounter HX [facility] José [...] Neurology Preet Landeros M.D . [address] [place] [phone] Bria Suh, BRET, C.N.P., M.S.N. [address] [place] [phone] 07/25/2022 Appointment Radiology Preet Landeros M.D . [address] [place] [phone] (Wo rk) documented as of this encounter Visit Diagnoses Not on filedocumented in this encounter
--- OUTSIDE RECORDS SUMMARY | 2022-06-23 22:47 | XMS_ITS | Encounter Summary ---
:1970 Author Organization [facility] Address [address] [place] [address] Care Team Providers Name Role Phone Unavailable [...] or slept in a intermediate (including now)? Sex Assigned at Date Recorded [...] Notes Miscellaneous - David Dsouza M.D. - 04/17/2012 9:16 AM CDT Results Notification Document Contains Addenda Addendum by PATRICK IBANEZ on 17 April 2012 17:27 CDT results mailed to patient. From: DAVID DSOUZA MD To: DAVID DSOUZA MD Sent: 04/17/2012 09:16:11 CDT ! Show up: 04/17/2012 14:16:11 [facility] Subject: Results Notification Actions: Notify patient of results Source: [facility] POWERCHART Document Id: [id number] Electronically signed by Ish, [facility] [employer] [id number] at 02/15/2017 5:14 PM CDT Miscellaneous - David Dsouza M.D. - 04/16/2012 9:36 AM CDT Results Notification Document Contains Addenda Addendum by PATRICK IBANEZ on 17 April 2012 17:27 CDT results mailed to patient. From: DAVID DSOUZA MD To: DAVID DSOUZA MD Sent: 04/16/2012 09:36:30 CDT ! Show up: 04/16/2012 14:36:30 [facility] Subject: Results Notification Actions: Notify patient of results Source: [facility] POWERCHART Document Id: [id number] Electronically signed by Ish, [facility] [employer] [id number] at 02/15/2017 5:14 PM CDT documented in this encounter Plan of Treatment Upcoming Encounters Date Type Specialty Care Team Description 06/26/2022 Appointment Neurology Preet Landeros M.D . [address] [place] [phone] Bria Suh APRN, C.N.P., M.S.N. [address] [place] [phone] 07/25/2022 Appointment Radiology Preet Landeros M.D . [address] [place] [phone] (Wo rk) documented as of this encounter Procedures Procedure Name Priority Date/Time Associated Diagnosis Comme nts ALBUMIN, RANDOM, U Routine 04/16/2012 8:36 AM Res ults for this CDT procedure are i n the results section. LIPID PANEL, S Routine 04/16/2012 8:28 AM Results for this CDT procedure are i n the results section. documented in this encounter Results (ABNORMAL) Microalbumin, Random, Urine (04/16/2012 8:36 AM CDT) P athologist Signature HXU Albumin % 19 MGDL POWERCHART Creatinine, 108 MGDL POWERCHART Random, U Albumin/Creatin 18 (H) 0 - 17 POWERCHART ine Ratio MGGM Specimen (Source) Anatomical Collection Method Collection Time Re ceived Time Location / / Volume Laterality Urine 04/16/2012 8:36 AM CDT David Dsouza M.D. LAB URINE ORDERABLES Performing Organization Address City/State/ZIP Code Phon e Number POWERCHART (ABNORMAL) Lipid Panel (04/16/2012 8:28 AM CDT) [facility] gist Method Time Signature Cholesterol, 152 0 - 200 POWERCHART Total MGDL HX HDL 39.0 (L) 40.0 - POWERCHART 60.0 MGDL Calculated LDL 54 0 - 100 POWERCHART MGDL Triglycerides 297 (H) 0 - 150 POWERCHART MGDL Specimen (Source) Anatomical Collection Method Collection Time Re ceived Time Location / / Volume Laterality Blood 04/16/2012 8:28 AM CDT David Dsouza M.D. LAB BLOOD ADD-ON Performing Organization Address City/State/ZIP Code Phon e Number POWERCHART documented in this encounter Visit Diagnoses Not on filedocumented in this encounter
--- OUTSIDE RECORDS SUMMARY | 2022-06-23 22:47 | XMS_ITS | Encounter Summary ---
:1970 Author Organization [facility] Address [address] [place] [address] Care Team Providers Name Role Phone Unavailable Primary Care Provider Unavailable Encounter Details Date Type Department Care Team Description 06/04/2011 Hospital Encounter HX [facility] SURGEON Obi Philip M.D. Social History Tobacco Use Types Packs/Day Years [...] documented as of this encounter Progress Notes Uli Philip M.D. - 06/04/2011 12:00 AM CDT [id number] CHIEF COMPLAINT/REASON FOR VISIT Followup status post incisional ventral hernia repair. HISTORY OF PRESENT ILLNESS The patient is here for a postoperative check after undergoing an incisional ventral hernia repair that was incarcerated with omentum on 05/29/2011. He is doing quite well now. He is ambulating. His pain is mostly controlled with Ultram. IMPRESSION/REPORT/PLAN Doing well status post incisional ventral hernia repair. He will return in two weeks. RRB/nmd Signed Uli Philip M.D. General Surgery Electronically Signed By: ULI PHILIP MD On: 06/17/2011 02:27 PM Source: [facility] MHSDOLBEYNONRADSYS Document Id: [id number] documented in this encounter Miscellaneous Notes Miscellaneous - Conversion, Historical Provider Ser - 06/04/2011 2:20 PM CDT Adult Features Reporter Intake/History Adult Features Reporter Intake/History Entered On: 06/04/2011 14:21 CDT Performed On: 06/04/2011 14:20 CDT by KRISHNA GUICHO STOKES LPN Intake Chief Complaint: Post op check. Onset of Symptoms: 05-29-11 Temperature Core: 37.1C(Converted to: 98.8DegF) Peripheral Pulse Rate: 80/min Respiratory Rate: 20/min Systolic Blood Pressure: 128mmHg Diastolic Blood Pressure: 70mmHg NIBP Mean: 89mmHg BP Location: Right lower extremity Height: 167.00cm(Converted to: 5ft 6inch(es), 65.75inch(es)) Actual Weight: 149.500kg(Converted to: 329lb 9oz) Weight Source: Standing scale Dosing Weight Clinic: 149.50kg Clinic BSA: 2.63 Body Mass Index: 53.61kg/m2 GUICHO KELLER MACEY - 06/04/2011 14:20 CDT Subjective Pain Symptoms: Yes GUICHO KELLER KIKE CHOUDHURY - 06/04/2011 14:20 CDT Pain Pain Assessment Grid Pain 1 Location: Abdomen GUICHO KELLER KIKE CHOUDHURY - 06/04/2011 14:20 CDT Dependent Habits Tobacco Use/Currently Using: No GUICHO KELLER KIKE CHOUDHURY - 06/04/2011 14:20 CDT Tobacco Use Grid Type: Cigars Last Use: 04/28/2011 GUICHO KELLER KIKE CHOUDHURY - 06/04/2011 14:20 CDT Caffeine Use Grid Caffeine Use: Current Type: Tea Frequency: Daily GUICHO KELLER KIKE CHOUDHURY - 06/04/2011 14:20 CDT Recreational Drug Use Grid Drug Use: None GUICHO KELLER KIKE CHOUDHURY - 06/04/2011 14:20 CDT Allergy Allergies (Active) NKA Estimated Onset Date: Unspecified ; Created By: ELIZABETH BAEZ; Reaction Status: Active ; Category: Drug ; Substance: NKA ; Type: Allergy ; Updated By: ELIZABETH BAEZ; Reviewed Date: 05/23/2011 10:12 CDT Source: [facility] [employer] Document Id: [id number] documented in this encounter Plan of Treatment Upcoming Encounters Date Type Specialty Care Team Description 06/26/2022 Appointment Neurology Preet Landeros M.D . [address] [place] [phone] Bria Suh APRN CBonNBonP., M.S.N. [address] [place] [phone] 07/25/2022 Appointment Radiology Preet Landeros M.D . [address] [place] [phone] (Wo rk) documented as of this encounter Visit Diagnoses Not on filedocumented in this encounter
--- OUTSIDE RECORDS SUMMARY | 2022-06-23 22:47 | XMS_ITS | Encounter Summary ---
:1970 Author Organization [facility] Address [address] [place] [address] Care Team Providers Name Role Phone Unavailable Primary Care Provider Unavailable Encounter Details Date Type Department Care Team Description 05/23/2011 Hospital Encounter HX [facility] Jenni Dsouza M.D. Social History Tobacco Use Types Packs/Day [...] documented as of this encounter Progress Notes David Dsouza M.D. - 05/23/2011 12:00 AM CDT [id number] CHIEF COMPLAINT/ REASON FOR VISIT Needs medical evaluation for surgery. HISTORY OF PRESENT ILLNESS This 41-year-old male patient is in for medical assessment for repair of a large ventral incisional hernia with incarceration. Procedure is to be done with mesh by Dr. Vito Leiva on May 29, 2011. For objective and subjective findings see the [facility] preop history and physical form. He has had no signs of bowel obstruction no fevers did have report of cellulitis in the area treated with Augmentin in March that problem has resolved. EMR record reviewed and updated. CURRENT MEDICATIONS Diovan 80 milligrams daily, Glipizide 5 milligrams twice a day, metformin 1000 milligrams twice a day, 600 milligrams of calcium +400 International units of vitamin D twice a day, Prilosec 20 milligrams daily, Zyrtec 10 milligrams daily p.r.n. allergies, multivitamin daily, vitamin C 500 milligrams daily, ibuprofen 800 milligrams three times daily and aspirin 81 milligrams three times daily ALLERGIES None. SYSTEMS REVIEW Allergic/immunologic: The patient is having no itching, no signs of allergies. No signs of immune deficiency. Constitutional symptoms: The patient has had no fevers, no weight loss or gain, no night sweats, no tiredness. Psychiatric: No emotional problems, no loss of feeling, no problem thinking. Eyes: No redness, no mattering, no change in vision. ENT: No hearing loss, no cold, no runny nose, no sores in the mouth, no sore throat. Cardiovascular: No palpitation of the heart, no chest pain, no orthopnea, no PND. Respiratory: No cough, no shortness of breath, no difficulty breathing, no pain with inspiration. Hematological/lymphatic: No swollen glands, no paleness, no easy bruising, no petechiae. GI: No nausea, vomiting, diarrhea or constipation. Ventral hernia as described above. : No dysuria, no hematuria, no change in frequency of urination, no nocturia. Musculoskeletal: No problem with moving arms or legs, no weakness, no muscle or skeletal pain. Integumentary: Skin: No change in color, no lesions. Breasts: No masses noted, no change in nipples. Neurological: No loss of feeling, no loss of function. Endocrine: No weakness, no tiredness, no symptoms of thyroid disease or diabetes; no thirst, weight loss or polyuria. All other systems reviewed and negative, except as mentioned above. PAST MEDICAL/SURGICAL HISTORY Appendectomy 10/30/1984, diabetes mellitus type 2 since February 2000, obesity with base BMI of 53.85 PREVENTIVE: Last tetanus shot 11/15/04, Pneumovax 2002. FAMILY HISTORY Brother diabetes mellitus. Brother emphysema. 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 His dad Flaco Murphy will be his support person. VITAL SIGNS: H 168, W 152 kg, O2 sat 95, temperature 37.2, R 16, P 74, blood pressure 80/40 PHYSICAL EXAMINATION AREA EXAM TEXT GENERAL Appearance, development, nutrition, and body habitus appear normal; no deformities. Normal grooming. SKIN Inspection of the skin and subcutaneous tissue clear, no rashes, lesions or ulcers. Palpation of the skin and subcutaneous tissue revealed no induration, subcutaneous nodules or tightening of the skin. EYES Pupils equal, round, react to light and accommodation; EOMs full; fundi no papilledema, hemorrhage or exudate; optic discs normal; lids and conjunctiva normal, no redness, no papules. ENT Tympanic membranes clear; external auditory canals and ears normal; hearing grossly normal; nasal mucosa, septum and turbinates appear normal; lips, teeth and gums normal; oropharynx, oral mucosa, salivary glands, hard and soft palate, tongue, and posterior pharynx appear normal. LYMPH NODES No lymphadenopathy, thyroid normal size without masses or tenderness; no masses, symmetrical. Lymphatic: No nodules palpated in the neck, axilla, groin or any other area. BREASTS No enlargement normal male pattern HEART Palpation of the heart normal location and size, no thrills. Auscultation reveals no murmur, gallop or rub. Carotid arteries: Normal pulse amplitude, no bruits. Abdominal aorta normal size, no bruits. Femoral arteries pulse normal, no bruits. Pedal pulses normal amplitude. LUNGS Respiratory effort normal, no difficulty breathing, retractions or abnormal movements. Percussion: No dullness, flatness or hyperresonance. Palpation of the chest negative, auscultation of the lungs reveals normal breath sounds, no rales, rhonchi or wheezing. ABDOMEN Abdomen has no masses, no tenderness; liver and spleen are not palpable; large left ventral hernia not reducible. EXTREMITIES No edema, no significant varicosities. Musculoskeletal: Normal gait and station; fingers normal, nails normal, no clubbing or cyanosis. Joints and bones appeared normal to range of motion, palpation and inspection, joints appeared stable. Normal muscle strength and tone. MENTAL Psychiatric: Patient appears oriented to time, place and person with good recent and remote memory. Mood and affect appear normal without evidence for depression, anxiety or agitation. NEURO Cranial nerves grossly intact. Deep tendon reflexes symmetrical +2. Normal sensation. IMPRESSION/REPORT/PLAN Hernia ventral incisional incarcerated. Surgery per Dr. Leiva. Diabetes mellitus type 2, obesity high risk [place] preanesthetic screen for obstructive sleep apnea score 32, greater or equal to 15 is consider high-risk. Will get chest x-ray EKG CBC BUN creatinine and other laboratory studies were done March 28, 2011 will be sent along with his record for surgery and do not feel he needs spirometry does not have any difficulty breathing with exertion. SFO/clf Signed David Dsouza M.D. Family Medicine Electronically Signed By: DAVID DSOUZA MD On: 05/28/2011 12:23 PM [facility] Document Id: [id number] documented in this encounter Nursing Notes Conversion, Historical Provider Ser - 04/14/2012 11:31 AM CDT Diabetic Call Document Contains Addenda Addendum by LAURA LANGE LPN on 15 April 2012 15:35 CDT Patient returned our call. Informed patient he is due for fasting diabetic labs and an appointment with Dr. Dsouza. Patient agreed to schedule these appointments and was warm transferred to scheduling. Modified by and Electronically Signed by: LAURA LANGE LPN On: 04/15/2012 03:35 PM Tried to reach patient left message for patient to return my call. Patient is due for fasting Diabetic labs followed by and apt with Dr. Dsouza. Electronically Signed By: PATRICK IBANEZ On: 04/14/2012 11:35 AM Source: [facility] [employer] Document Id: [id number] Tayo Clark L.P.NBon - 03/16/2012 11:57 AM CDT Diabetic call Document Contains Addenda Addendum by TAYO CLARK LPN on 26 March 2012 15:53 CDT Call placed to patient. Message left for patient to return my call. Modified by and Electronically Signed by: TAYO CLARK LPN On: 03/26/2012 03:53 PM Attempted to reach patient for being due for fasting diabetic labs due [id number]. and a office visit with . Message left for patient to return my call. Electronically Signed By: TAYO CLARK LPN On: 03/16/2012 11:59 AM [facility] Document Id: [id number] Tayo Clark L.P.NBon - 02/21/2012 9:42 AM CDT Diabetic call Document Contains Addenda Addendum by LAURA LANGE LPN on 24 February 2012 15:19 CDT Patient returned our call and stated that he would look at his work schedule and call to schedule these appointments. Modified by and Electronically Signed by: LAURA LANGE LPN On: 02/24/2012 03:19 PM Attempted to contact patient in regards to being due for diabetic labs and follow-up appt. with . Message left for patient to return my call. Electronically Signed By: TAYO CLARK LPN On: 02/21/2012 09:45 AM Source: [employer] Document Id: [id number] Laura Lange L.P.NBon - 01/30/2012 11:41 AM CDT Diabetic Call Attempted to contact patient in regards to being due for a Hemoglobin A1C and follow-up appointmentwith Dr. Dsouza. Left message for patient to return my call. Electronically Signed By: LAURA LANGE LPN On: 01/30/2012 11:43 AM Source: [employer] Document Id: [id number] Tayo Clark L.P.N. - 01/17/2012 11:31 AM CDT Diabetic call Call placed to patient in regards to diabetic labs that are due. Message left for patient to returnmy call. Electronically Signed By: TAYO CLARK LPN On: 01/17/2012 11:33 AM Source: [employer] Document Id: [id number] Tayo Clark L.P.N. - 12/20/2011 10:25 AM CDT Diabetic call Document Contains Addenda Addendum by TAYO CLARK LPN on 27 December 2011 16:19 CDT Second attempt to reach patient by phone made. Modified by and Electronically Signed by: TAYO CLARK LPN On: 12/27/2011 04:19 PM Attempted to reach patient in regards to diabetic labs / office visit. Message left for patient to return my call. Electronically Signed By: TAYO CLARK LPN On: 12/20/2011 10:27 AM [facility] Document Id: [id number] documented in this encounter Miscellaneous Notes Telephone Encounter - Katerina Clark RNaman - 04/03/2012 5:01 PM CDT Prescription routing temporarily unavailable Entered by KATERINA CLARK on 03 April 2012 17:01:58 CDT called into [facility] in [place], [place] The system is currently not able to route this prescription to the pharmacy. Please use another means to communicate this prescription to the intended pharmacy. 1 errors validating against amSTATZ Xml 4.20.xsd Comments: 1 errors validating against ArticleAlleyl 4.20.xsd [facility]: [facility] Document Id: [id number] Miscellaneous - David Dsouza M.D. - 05/23/2011 10:54 AM CDT Ambulatory Patient Summary [address] [address] Visit Information Name: PIYUSH CALI TABITHA Current Date: 05/23/2011 10:54:16 Primary Care Provider: DAVID DSOUZA MD Your Medications Here is a list of your medications. It is important to take your medications as directed. Use a pillbox or chart to help remind you to take your medications. Please let your doctor or nurse know if you have problems taking your medications. Medication/Strength Dose Route Frequency Indications/Special Instructions/Comments glipiZIDE (glipiZIDE 5 mg oral tablet, extended release) 5 mg Oral two times a day valsartan (Diovan 80 mg oral tablet) 80 mg Oral once a day need annual CPX metformin (metformin 500 mg oral tablet, extended release) 1,000 mg Oral two times a day calcium-vitamin D (Calcium 600+D) Oral two times a day cetirizine (Zyrtec 10 mg oral tablet) Allergy symptoms omeprazole (Prilosec OTC) Oral once a day ascorbic acid (Vitamin C) multivitamin (multivitamin) once a day aspirin (aspirin) 81 mg Oral once a day Your Allergies & Intolerances Substance Reaction Symptoms Category Comments NKA Drug Your Problem List Problem Status Onset Comments Diabetes mellitus type II Active Morbid Obesity (BMI > 40) (V85.4) Active Hernia, ventral, unspecified Active Your Recommendations We want to make sure you get the tests, immunizations, and guidance you need to stay healthy. Here is a customized list of recommendations, based on information we have in your medical record. Your doctor may have additional recommendations for you, based on your personal medical history and risk factors. You can help us by calling us to make an appointment when you are due for your tests. Additional information regarding recommendations: Test/Treatment Last Done Next Due Additional Information Diabetes: A1C every 6 months 03/28/2011 09/27/2011 Average of blood sugar over a 2-3 month timeframe. Diabetes: Creatinine every 1 year 03/28/2011 03/27/2012 Diabetes: Diabetes Education every 1 year 03/25/2011 03/24/2012 Diabetes: Eye Exam every 1 year 02/05/2011 02/05/2012 Diabetes: Foot Exam every 1 year 03/25/2011 03/24/2012 Diabetes: Microalbumin/Urine Protein every 1 year 03/28/2011 03/27/2012 Diabetes and/or Vascular: LDL every 1 year 03/28/2011 03/27/2012 Lipid Panel every 5 years Age 20-75 03/28/2011 03/26/2016 Checks blood for good (HDL) and bad (LDL) cholesterol. Know your numbers, they are one indicator of your risk for heart attack and stroke. Vaccine: Flu every 1 year 06/29/2010 06/29/2011 Immunization to help prevent you from getting the flu strain expected to be a problem for that year's flu season. Vaccine: Pneumococcal Once 02/27/2003 Completed Immunization to help prevent you from getting 23 kinds of pneumococcal bacteria that can lead to pneumonia, bacteremia and meningitis. Vaccine: Tetanus every 10 years 11/15/2004 11/13/2014 Immunization to help prevent you from getting the serious disease Tetanus (Jayden). Your Upcoming Appointments Date Time Location Reason Provider No Appointments found Your Goals/Additional instructions: Source: [facility] [employer] Document Id: [id number] Miscellaneous - David Dsouza M.D. - 05/23/2011 10:54 AM CDT Ambulatory Depart Summary [address] [address] Visit Information Name: CALI MURPHY Current Date: 05/23/2011 10:54:14 Primary Care Provider: DAVID DSOUZA MD CALI MURPHY has been given the following list of medications: Your Medications It is important to take your medications as directed. Use a pill box or chart to help remind you to take your medications. Please let your doctor or nurse know if you have problems taking your medications. Medication/Strength Dose Route Frequency Indications/Special Instructions/Comments glipiZIDE (glipiZIDE 5 mg oral tablet, extended release) 5 mg Oral two times a day valsartan (Diovan 80 mg oral tablet) 80 mg Oral once a day need annual CPX metformin (metformin 500 mg oral tablet, extended release) 1,000 mg Oral two times a day calcium-vitamin D (Calcium 600+D) Oral two times a day cetirizine (Zyrtec 10 mg oral tablet) Allergy symptoms omeprazole (Prilosec OTC) Oral once a day ascorbic acid (Vitamin C) multivitamin (multivitamin) once a day aspirin (aspirin) 81 mg Oral once a day Additional Information: Yes - Current list of reconciled medications is provided and explained to the patient and/or family, guardian/caregiver. Source: [facility] POWERCHART Document Id: [id number] Miscellaneous - Conversion, Historical Provider Ser - 05/23/2011 10:19 AM CDT Adult [employer] Intake/History Adult [employer] Intake/History Entered On: 05/23/2011 10:20 CDT Performed On: 05/23/2011 10:19 CDT by PATRICK IBANEZ Intake Chief Complaint: pre-op Temperature Core: 37.2C(Converted to: 99.0DegF) Peripheral Pulse Rate: 74/min Respiratory Rate: 16/min Systolic Blood Pressure: 80mmHg (<LLOW) Diastolic Blood Pressure: 40mmHg (<LLOW) NIBP Mean: 53mmHg BP Location: Right upper extremity SpO2: 95% Height: 168.00cm(Converted to: 5ft 6inch(es), 66.14inch(es)) Actual Weight: 152.000kg(Converted to: 335lb 2oz) Weight Source: Standing scale Dosing Weight Clinic: 152.00kg Clinic BSA: 2.66 Body Mass Index: 53.85kg/m2 PATRICK IBANEZ - 05/23/2011 10:19 CDT Subjective Pain Symptoms: No PATRICK IBANEZ - 05/23/2011 10:19 CDT Dependent Habits Tobacco Use/Currently Using: No PATRICK IBANEZ - 05/23/2011 10:19 CDT Tobacco Use Grid Type: Cigars Last Use: 04/28/2011 PATRICK IBANEZ - 05/23/2011 10:19 CDT Caffeine Use Grid Caffeine Use: Current Type: Tea Frequency: Daily PATRICK IBANEZ - 05/23/2011 10:19 CDT Recreational Drug Use Grid Drug Use: None PATRICK IBANEZ - 05/23/2011 10:19 CDT Allergy Allergies (Active) NKA Estimated Onset Date: Unspecified ; Created By: ELIZABETH BAEZ; Reaction Status: Active ; Category: Drug ; Substance: NKA ; Type: Allergy ; Updated By: ELIZABETH BAEZ; Reviewed Date: 05/23/2011 10:12 CDT Source: [facility] POWER[employer]ART Document Id: [id number]!33 documented in this encounter Plan of Treatment Upcoming Encounters Date Type Specialty Care Team Description 06/26/2022 Appointment Neurology Preet Landeros M.D . [address] [place] [phone] Bria Suh APRN, C.N.P., M.S.N. [address] [place] [phone] 07/25/2022 Appointment Radiology Preet Landeros M.D . [address] [place] [address] [phone] (Wo rk) documented as of this encounter Procedures Procedure Name Priority Date/Time Associated Diagnosis Comme nts DX CHEST 1 VIEW Routine 05/23/2011 11:15 AM Resul ts for this CDT procedure are i n the results section. documented in this encounter Results DX Chest 1 View (05/23/2011 11:15 AM CDT) Anatomical Region Laterality Modality Chest N/A Radiographic Imaging Specimen (Source) Anatomical Collection Method Collection Time Re ceived Time Location / / Volume Laterality 05/23/2011 11:15 AM CDT Impressions 05/23/2011 11:37 AM CDT No significant interval change, no active pulmonary disease. Narrative 05/23/2011 11:37 AM CDT HISTORY: Preop for ventral hernia repair . ?? COMPARISON: 06/09/2006. ?? FINDINGS: Heart size and pulmonary vascu larity are within normal limits. No acute appearing infiltrates o r effusions are identified. There is no significant interval change compared with 06/09/2006. ?? Procedure Note Gibran Hernandez Jr., M.D. / Bean Alfaro M.D. - 02/06/2017 HISTORY: Preop for ventral hernia repair . COMPARISON: 06/09/2006. FINDINGS: Heart size and pulmonary vascu larity are within normal limits. No acute appearing infiltrates o r effusions are identified. There is no significant interval change compared with 06/09/2006. IMPRESSION: No significant interval iglesias ge, no active pulmonary disease. Reji Gaytan Jr., RVeronica.M.S. IMG DIAGNOSTIC IMAGI NG PROCEDURES documented in this encounter Visit Diagnoses Not on filedocumented in this encounter
--- OUTSIDE RECORDS SUMMARY | 2022-06-23 22:47 | XMS_ITS | Encounter Summary ---
:1970 Author Organization [facility] Address [address] [place] [address] Care Team Providers Name Role Phone Unavailable Primary Care Provider Unavailable Encounter Details Date Type Department Care Team Description 06/28/2013 Hospital Encounter HX [facility] Jenni [...] Sign Reading Time Taken Comments Blood Pressure 140/80 06/28/2013 5:07 PM CDT Pulse 72 06/28/2013 5:02 PM CDT Temperature - - Respiratory Rate 16 06/28/2013 5:02 PM CDT Oxygen Saturation - - Inhaled Oxygen Concentration - - Weight 152 kg (336 lb 3.2 oz) 06/28/2013 5:02 PM CDT Height 168.5 cm (5' 6.34) 06/28/2013 5:02 PM CDT Body Mass Index 53.71 06/28/2013 5:02 PM CDT documented in this encounter Medications [...] encounter Progress Notes David Dsouza M.D. - 06/28/2013 4:57 PM CDT [id number] CHIEF COMPLAINT/REASON FOR VISIT Cough and shortness of breath for the last week or two. HISTORY OF PRESENT ILLNESS This 43-year-old male patient has been sick for the last week or so with a cough and some shortness of breath, signs of infection. Father is also sick. He also has allergies. Claritin has not worked inthe past but generic Zyrtec seems to be helping that problem. States he has done well with inhaler in the past but has not required oral steroids. Also having sore throat and was exposed to strep. Sinus drainage. EMR record reviewed and updated. SYSTEMS REVIEW RESPIRATORY: Cough and shortness of breath. CARDIOVASCULAR: No palpitation of the heart. Chest pain.GI: No nausea, vomiting, diarrhea, constipation or recent change in weight. : No dysuria, no hematuria. Itchy watery eyes. All other systems reviewed and negative, except as mentioned above. PHYSICAL EXAMINATION SKIN: Clear. EYES: Pupils equal, round, react to light and accommodation; EOMs full; fundi no papilledema, hemorrhage or exudate; lids normal. ENT: Ears: TMs clear; external auditory canals clear. Throat mild erythema. Tongue normal. Teeth normal. Nares inflamed and congested. LYMPH NODES: Neck: no lymphadenopathy. THYROID: Normal size, symmetric. HEART: No murmur, gallop or rub; normal size; PMI arteries normal. LUNGS: Clear to percussion and auscultation, normal to inspection, no retractions, no dyspnea. ABDOMEN: No masses, no organomegaly, nontender; normal to inspection, percussion and palpation; no distention. EXTREMITIES: Legs: no edema. IMPRESSION/REPORT/PLAN 1. Acute sinusitis. 2. Allergic rhinitis. 3. Possible strep. Recommend Augmentin 875 mg twice a day for 2 weeks. Continue with the Zyrtec 10 mg generic daily. Pro-Air 2 puffs every 4 hours as needed for cough for wheeze. Augmentin 875 mg twicea day for 2 weeks and recheck in 2 weeks. Return sooner as needed. David Dsouza M.D./monica Electronically Signed By: DAVID DSOUZA MD On: 06/29/2013 04:25 PM Source: [facility] MHSDOLBEYNONRADSYS Document Id: [id number] documented in this encounter Miscellaneous Notes Miscellaneous - David Dsouza M.D. - 06/28/2013 5:33 PM CDT Ambulatory Patient Summary [address] [address] Visit Information Name: CALI MURPHY [facility] Number: [id number] Current Date: 06/28/2013 17:33:15 Physicians Attending Provider: DAVID DSOUZA MD Primary Care Provider: DAVID DSOUZA MD Your Medications Here is a list of your medications. It is important to take your medications as directed. Use a pillbox or chart to help remind you to take your medications. Please let your doctor or nurse know if you have problems taking your medications. Medication/Strength Dose Route Frequency Indications/Special Instructions/Comments/Notes albuterol (ProAir HFA 90 mcg/inh inhalation aerosol) 2 puff(s) Inhalation four times a day as neededfor Wheezing amoxicillin-clavulanate (Augmentin 875 mg-125 mg oral tablet) 1 tab(s) Oral two times a day for 14 Days metFORMIN (metformin 500 mg oral tablet, extended release) 1,000 mg Oral two times a day valsartan (Diovan 80 mg oral tablet) 80 mg Oral once a day glimepiride (glimepiride 4 mg oral tablet) 4 mg Oral once a day with breakfast patient due for appointment with primary provider and labs prior to additional refills triamcinolone topical (triamcinolone 0.1% topical cream) 1 kahlil Topical three times a day omeprazole-sodium bicarbonate (Zegerid OTC) 1 cap(s) Oral once a day calcium-vitamin D (Calcium 600+D) Oral two times a day cetirizine (Zyrtec 10 mg oral tablet) Allergy symptoms ascorbic acid (Vitamin C) multivitamin (multivitamin) once a day aspirin (aspirin) 81 mg Oral once a day Attention: If you have any medications at home that are not on this list, DO NOT take them until youcontact your provider for clarification. Your Allergies & Intolerances Substance Reaction Symptoms Category Comments No Known Allergies Drug Your Problem List Problem Status Onset Comments Diabetes mellitus type II Active Morbid Obesity (BMI > 40) (V85.4) Active Hernia, ventral, unspecified Active Diabetes mellitus II, uncontrolled (also use V58.67 if pt has size mixer (current insulin use) [id number]/23/2012 Psoriasis Active 01/26/2013 Your Upcoming Appointments Date Time Location Reason Provider No Appointments found Your Goals/Additional instructions: Source: [facility] POWERCHART Document Id: [id number] Miscellaneous - David Dsouza M.D. - 06/28/2013 5:33 PM CDT Ambulatory Depart Summary [address] [address] Visit Information Name: CALI MURPHY [facility] Number: [id number] Visit Date: 06/28/2013 17:33:14 Attending Provider: DAVID DSOUZA MD Primary Care Provider: DAVID DSOUZA MD CALI MURPHY has been given the following list of medications: Your Medications It is important to take your medications as directed. Use a pill box or chart to help remind you to take your medications. Please let your doctor or nurse know if you have problems taking your medications. Medication/Strength Dose Route Frequency Indications/Special Instructions/Comments/Notes albuterol (ProAir HFA 90 mcg/inh inhalation aerosol) 2 puff(s) Inhalation four times a day as neededfor Wheezing amoxicillin-clavulanate (Augmentin 875 mg-125 mg oral tablet) 1 tab(s) Oral two times a day for 14 Days metFORMIN (metformin 500 mg oral tablet, extended release) 1,000 mg Oral two times a day valsartan (Diovan 80 mg oral tablet) 80 mg Oral once a day glimepiride (glimepiride 4 mg oral tablet) 4 mg Oral once a day with breakfast patient due for appointment with primary provider and labs prior to additional refills triamcinolone topical (triamcinolone 0.1% topical cream) 1 kahlil Topical three times a day omeprazole-sodium bicarbonate (Zegerid OTC) 1 cap(s) Oral once a day calcium-vitamin D (Calcium 600+D) Oral two times a day cetirizine (Zyrtec 10 mg oral tablet) Allergy symptoms ascorbic acid (Vitamin C) multivitamin (multivitamin) once a day aspirin (aspirin) 81 mg Oral once a day Attention: If you have any medications at home that are not on this list, DO NOT take them until youcontact your provider for clarification. Additional Information: Source: [facility] [employer] Document Id: [id number] Miscellaneous - Conversion, Historical Provider Ser - 06/28/2013 5:07 PM CDT Ambulatory Vitals Height Weight Ambulatory Vitals Height Weight Entered On: 06/28/2013 17:07 CDT Performed On: 06/28/2013 17:07 CDT by TROY MARY Vitals/Ht/Wt Systolic Blood Pressure : 140 mmHg Diastolic Blood Pressure : 80 mmHg NIBP Mean : 100 mmHg BP Location : Left lower extremity Blood Pressure Cuff Size : Regular TROY MARY - 06/28/2013 17:07 CDT [facility] Document Id: [id number] CDT!7 Miscellaneous - Conversion, Historical Provider Ser - 06/28/2013 5:02 PM CDT Adult English Composition Instructor Intake/History Adult English Composition Instructor Intake/History Entered On: 06/28/2013 17:06 CDT Performed On: 06/28/2013 17:02 CDT by TROY MARY Intake Chief Complaint : Cough, drainage back of throat Temperature Core : 36.8 DegC(Converted to: 98.2 DegF) Peripheral Pulse Rate : 72 /min Respiratory Rate : 16 /min Systolic Blood Pressure : 154 mmHg (HI) Diastolic Blood Pressure : 94 mmHg (>HHI) NIBP Mean : 114 mmHg BP Location : Left lower extremity Blood Pressure Cuff Size : Regular Height : 168.5 cm(Converted to: 5 ft 6 inch(es), 66.34 inch(es)) Actual Weight : 152.5 kg(Converted to: 336 lb 3 oz) Dosing Weight Clinic : 152.5 kg Clinic BSA : 2.67 Body Mass Index : 53.71 kg/m2 TROY MARY - 06/28/2013 17:02 CDT General Info Languages : Romanian TROY MARY - 06/28/2013 17:02 CDT Subjective Pain Symptoms : No TROY MARY - 06/28/2013 17:02 CDT Dependent Habits Tobacco Use/Currently Using : Yes Tobacco Use/Advised to Quit : Yes Exposure to Tobacco Smoke : Patient smokes Smoking Status : Current some day smoker TROY MARY 06/28/2013 17:02 CDT Tobacco Use Grid Type : Cigars TROY MARY 06/28/2013 17:02 CDT Caffeine Use Grid Caffeine Use : Current Type : Chocolate, Coffee, Soft drinks, Tea Frequency : Daily TROY MARY 06/28/2013 17:02 CDT Recreational Drug Use Grid Drug Use : None TROY MARY 06/28/2013 17:02 CDT Source: [employer] Document Id: [id number] CDT!36 Miscellaneous - Conversion, Historical Provider Ser - 06/28/2013 5:02 PM CDT Health Assessment Health Assessment Entered On: 06/28/2013 17:07 CDT Performed On: 06/28/2013 17:02 CDT by USMANTROY Jakob Health Assessment Complete Health Assessment Complete or Modified : Annual Health Assessment Annual Health Assessment Completed : Yes TROY MARY 06/28/2013 17:02 CDT Nutrition Nutrition Risk Factors by History Adult : None Home Diet : Regular Feeding Ability : Complete independence TROY MARY 06/28/2013 17:02 CDT Functional Current Daily Living Assistance : None Mobility Assistance Prior to Admission : Independent TROY MARY 06/28/2013 17:02 CDT Dependent Habits Tobacco Use/Currently Using : Yes Tobacco Use/Advised to Quit : Yes Exposure to Tobacco Smoke : Patient smokes Smoking Status : Current some day smoker TROY MARY 06/28/2013 17:02 CDT Tobacco Use Grid Type : Cigars TROY MARY 06/28/2013 17:02 CDT Alcohol Use : Yes TROY MARY 06/28/2013 17:02 CDT Caffeine Use Grid Caffeine Use : Current Type : Chocolate, Coffee, Soft drinks, Tea Frequency : Daily TROY MARY 06/28/2013 17:02 CDT Recreational Drug Use Grid Drug Use : None TROY MARY - 06/28/2013 17:02 CDT AUDIT Tool How Often Do You Have A Drink : 2 to 4 times a month How Many Drinks in a Day When Drinking : 1 or 2 Six or More Drinks On One Occassion : Never Audit Phase 1 Score : 2 TROY MARY - 06/28/2013 17:02 CDT Psychosocial Domestic Abuse Concerns : None TROY MARY 06/28/2013 17:02 CDT Advance Directive Advanced Directives : No TROY MARY 06/28/2013 17:02 CDT Educ Needs Learning Style Preference Adult Grid Patient : Printed materials, Verbal explanation Family : None TROY MARY 06/28/2013 17:02 CDT Source: [employer] Document Id: [id number] CDT!41 documented in this encounter Plan of Treatment Upcoming Encounters Date Type Specialty Care Team Description 06/26/2022 Appointment Neurology Preet Landeros M.D . [address] [place] [phone] Bria Suh, BRET, C.N.P., M.S.N. [address] [place] [phone] 07/25/2022 Appointment Radiology Preet Landeros M.D . [address] [place] [phone] (Wo rk) documented as of this encounter Visit Diagnoses Not on filedocumented in this encounter
--- OUTSIDE RECORDS SUMMARY | 2022-06-23 22:47 | XMS_ITS | Encounter Summary ---
:1970 Author Organization [facility] Address [address] [place] [address] Care Team Providers Name Role Phone Unavailable Primary Care Provider Unavailable Encounter Details Date Type Department Care Team Description 08/11/2012 Hospital Encounter HX [facility] LAB David [...] or relatives? How often do you attend rastafarian or More than 4 times per year 06/02/2022 judaism services? Do you belong to any clubs or Yes 06/02/2022 organizations such as rastafarian groups, unions, fraternal or athletic groups, or [...] Notes Miscellaneous - David Dsouza M.D. 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 Show up: 08/11/2012 16:21:50 [facility] Subject: Results Notification Actions: Notify patient of results Source: [facility] POWERCHART Document Id: [id number] Electronically signed by Conversion, [facility] [employer] Mig Welder [id number] at 02/16/2017 6:16 AM CDT documented in this encounter Plan of Treatment Upcoming Encounters Date Type Specialty Care Team Description 06/26/2022 Appointment Neurology Preet Landeros M.D . [address] [place] [phone] Bria Suh APRN, C.N.P., M.S.N. [address] [place] [phone] 07/25/2022 Appointment Radiology Preet Landeros M.D . [address] [place], [place] [phone] (Wo rk) documented as of this encounter Procedures Procedure Name Priority Date/Time Associated Comments Diagnosis HEMOGLOBIN A1C, B Routine 08/11/2012 9:26 AM Resu lts for this CAR DUMPER OPERATOR HELPER procedure are i n the results section. BASIC METABOLIC Routine 08/11/2012 9:26 AM Result s for this PANEL, S/P CAR DUMPER OPERATOR HELPER procedure are i n the results section. documented in this encounter Results (ABNORMAL) BMP (Basic Metabolic Panel) (08/11/2012 9:26 AM CAR DUMPER OPERATOR HELPER) athologist Signature BUN (Blood Urea 13 7 - 23 POWERCHART Nitrogen), S MGDL Creatinine 0.7 (L) 0.9 - 1.4 POWERCHART MGDL Glucose 176 POWERCHART Potassium, S 4.5 3.5 - 4.8 POWERCHART MMOLL Sodium, S 138 135 - 145 POWERCHART MMOLL Chloride, S 98 (L) 100 - 108 POWERCHART MMOLL CO2 Total 29 22 - 29 POWERCHART MMOLL Calcium, Total, 9.1 8.5 - 10.5 POWERCHART S MGDL BUN/Creatinine 18 POWERCHART Ratio HXeGFR (MDRD) >60 MLMIN POWERCHART eGFR >60 MLMIN POWERCHART Black/ Specimen (Source) Anatomical Collection Method Collection Time Re ceived Time Location / / Volume Laterality Blood 08/11/2012 9:26 AM CAR DUMPER OPERATOR HELPER David Dsouza M.D. LAB BLOOD ADD-ON Performing Organization Address City/State/ZIP Code Phon e Number POWERCHART (ABNORMAL) Hemoglobin A1c (08/11/2012 9:26 AM CAR DUMPER OPERATOR HELPER) athologist Signature Hemoglobin A1c, 8.5 (H) 4.0 - 6.0 POWERCHART B Specimen (Source) Anatomical Collection Method Collection Time Re ceived Time Location / / Volume Laterality Blood 08/11/2012 9:26 AM CAR DUMPER OPERATOR HELPER David Dsouza M.D. LAB BLOOD ADD-ON Performing Organization Address City/State/ZIP Code Phon e Number POWERCHART documented in this encounter Visit Diagnoses Not on filedocumented in this encounter
--- OUTSIDE RECORDS SUMMARY | 2022-06-23 22:47 | XMS_ITS | Encounter Summary ---
:1970 Author Organization [facility] Address [address] [place] [address] Care Team Providers Name Role Phone Unavailable Primary Care Provider Unavailable Encounter Details Date Type Department Care Team Description 06/15/2013 Hospital Encounter HX [facility] LAB José [...] slept in a skilled nursing (including now)? Sex Assigned at Date Recorded [...] Neurology Preet Landeros M.D . [address] [place] [phone] Bria Suh, BRET, C.N.P., M.S.N. [address] [place] [phone] 07/25/2022 Appointment Radiology Preet Landeros M.D . [address] [place] [phone] (Wo rk) documented as of this encounter Procedures Procedure Name Priority Date/Time Associated Diagnosis Comme nts ALBUMIN, RANDOM, U Routine 06/15/2013 8:54 AM Res ults for this CDT procedure are i n the results section. documented in this encounter Results (ABNORMAL) Microalbumin, Random, Urine (06/15/2013 8:54 AM CDT) P athologist Signature HXU Albumin % 19 MGDL POWERCHART Creatinine, 92 MGDL POWERCHART Random, U Albumin/Creatin 21 (H) 0 - 17 POWERCHART ine Ratio MGGM Specimen (Source) Anatomical Collection Method Collection Time Re ceived Time Location / / Volume Laterality Urine 06/15/2013 8:54 AM CDT José Luis Villa M.D. LAB URINE ORDERABLES Performing Organization Address City/State/ZIP Code Phon e Number POWERCHART documented in this encounter Visit Diagnoses Not on filedocumented in this encounter
--- OUTSIDE RECORDS SUMMARY | 2022-06-23 22:47 | XMS_ITS | Encounter Summary ---
:1970 Author Organization [facility] Address [address] [place] [address] Care Team Providers Name Role Phone Unavailable Primary Care Provider Unavailable Encounter Details Date Type Department Care Team Description 04/23/2012 Hospital Encounter [facility]X [facility] Jenni [...] Reading Time Taken Comments Blood Pressure 128/72 04/23/2012 9:39 AM CDT Pulse 80 04/23/2012 9:39 AM CDT Temperature - - Respiratory Rate 20 04/23/2012 9:39 AM CDT Oxygen Saturation - - Inhaled Oxygen Concentration - - Weight 157 kg (345 lb 0.3 oz) 04/23/2012 9:39 AM CDT Height - - Body Mass Index - [...] encounter Progress Notes David Dsouza M.D. - 04/23/2012 9:28 AM CDT [id number] CHIEF COMPLAINT/REASON FOR VISIT Recheck diabetes. HISTORY OF PRESENT ILLNESS This 42-year-old male patient in for recheck of his diabetes. A1c was 8.2 and will switch him from his Glucotrol XL 5 mg twice to Amaryl 4 mg daily going up to 8 mg as tolerated based on his blood sugars that he will check at least once a day. Patient also has locking of the right third finger proximal PIP joint and pain on the top of the right shoulder which may be related to impingement. He did notwish to have any x-rays for evaluation and treatment of those problems at this time. He will return as needed. He has no numbness to his feet monofilament line. Diabetic education done. Patient also has a fungal infection in his left axilla, controlled with Loprox cream. He is also using 1/10th of percent triamcinolone cream. Recommend he not use that in the axilla is said it may cause some thinning the skin and striae. Use 1% hydrocortisone instead. Patient's blood pressure adequately controlled oncurrent medication no other changes needed. EMR record reviewed and updated. SYSTEMS REVIEW 1. Allergic/immunologic: The patient is having no itching, no signs of allergies. No signs of immunedeficiency. 2. Constitutional symptoms: The patient has had no fevers, no weight loss or gain, no night sweats, no tiredness. 3. Psychiatric: No emotional problems, no loss of feeling, no problem thinking. 4. Eyes: No redness, no mattering, no change in vision. 5. ENT: No hearing loss, no cold, no runny nose, no sores in the mouth, no sore throat. 6. Cardiovascular: No palpitation of the heart, no chest pain, no orthopnea, no PND. 7. Respiratory: No cough, no shortness of breath, no difficulty breathing, no pain with inspiration. 8. Hematological/lymphatic: No swollen glands, no paleness, no easy bruising, no petechiae. 9. GI: No nausea, vomiting, diarrhea or constipation. 10. : No dysuria, no hematuria, no change in frequency of urination, no nocturia. 11. Musculoskeletal: No problem with moving arms or legs, no weakness, no muscle or skeletal pain. 12. Integumentary: Skin: No change in color, no lesions. Breasts: No masses noted, no change in nipples. 13. Neurological: No loss of feeling, no loss of function. 14. Endocrine: No weakness, no tiredness, no symptoms of thyroid disease or diabetes; no thirst, weight loss or polyuria. All other systems reviewed and negative, except as mentioned above. PHYSICAL EXAMINATION SKIN: Clear. EYES: Pupils equal, round, react to light and accommodation; EOMs full; fundi no papilledema, hemorrhage or exudate; lids normal. ENT: Ears: TMs clear; external auditory canals clear. Throat clear. Tongue normal. Teeth normal. LYMPH NODES: Neck: no lymphadenopathy. THYROID: Normal size, symmetric. HEART: No murmur, gallop or rub; normal size; PMI arteries normal. LUNGS: Clear to percussion and auscultation, normal to inspection, no retractions, no dyspnea. ABDOMEN: No masses, no organomegaly, nontender; normal to inspection, percussion and palpation; no distention. EXTREMITIES: Legs: no edema. IMPRESSION/REPORT/PLAN 1. Diabetes mellitus needing further treatment. He also had borderline high microalbumin of urine which would be treated with the Diovan he is already on 2. For his probable yeast infection axilla and contact dermatitis use the Loprox cream recheck 1 month return sooner p.r.n. A1c in 2 months David Dsouza M.D./ashley Electronically Signed By: DAVID DSOUZA MD On: 04/23/2012 01:08 PM Source: [facility] MHSDOLBEYNONRADSYS Document Id: [id number] documented in this encounter Nursing Notes Tayo Clark L.P.NBon - 01/15/2013 3:14 PM CDT Diabetic call Attempted to contact patient in regards to being due for diabetic labs and office visit with . Message left to return our call. Electronically Signed By: TAYO CLARK LPN On: 01/15/2013 03:16 PM Source: [facility] [employer] Document Id: [id number] Debo Tim L.P.NBon - 12/14/2012 9:57 AM CDT Diabetic Call Document Contains Addenda Addendum by TAYO CLARK LPN on 25 December 2012 11:37 CDT Second attempt made to contact patient in regards to diabetic lab/office visit. Message left to return our call. Modified by and Electronically Signed by: TAYO CLARK LPN On: 12/25/2012 11:37 AM 1st attempt this month to contact Cali in regards to diabetic lab that andfollow up with Dr. Dsouza that is due. Message left to return our call. Electronically Signed By: DEBO TIM LPN On: 12/14/2012 09:58 AM [facility] Document Id: [id number] Tayo Clark L.P.N. - 07/20/2012 9:17 AM CST Diabetic call Document Contains Addenda Addendum by TAYO CLARK LPN on 07 August 2012 9:06 MANAGER UNIX Patient returned call . Transferred call to scheduling. Modified by and Electronically Signed by: TAYO CLARK LPN On: 08/07/2012 09:06 AM Addendum by DEBO TIM LPN on 03 August 2012 9:39 MANAGER [employer]IX 2nd attempt to contact patient in regards to diabetic labs and follow up with Dr. Dsouza. Message left to return our call. Modified by and Electronically Signed by: DEBO TIM LPN On: 08/03/2012 09:39 AM Attempted to contact patient in regards to diabetic labs and office visit with . Message left for patient to return my call. Electronically Signed By: TAYO CLARK LPN On: 07/20/2012 09:19 AM Source: [facility] Document Id: [id number] GER [employer]IX documented in this encounter Miscellaneous Notes Miscellaneous - David Dsouza M.D. - 04/23/2012 10:13 AM CDT Ambulatory Patient Summary [address] [address] Visit Information Name: CALI MURPHY Current Date: 04/23/2012 10:13:29 Physicians Attending Provider: DAVID DSOUZA MD Primary Care Provider: DAVID DSOUZA MD Your Medications Here is a list of your medications. It is important to take your medications as directed. Use a pillbox or chart to help remind you to take your medications. Please let your doctor or nurse know if you have problems taking your medications. Medication/Strength Dose Route Frequency Indications/Special Instructions/Comments glimepiride (glimepiride 4 mg oral tablet) 4 mg Oral once a day with breakfast metformin (metformin 500 mg oral tablet, extended release) 1,000 mg Oral two times a day ciclopirox topical (ciclopirox 0.77% topical cream) 1 kahlil Topical two times a day triamcinolone topical (triamcinolone 0.1% topical cream) 1 kahlil Topical two times a day to affected area omeprazole-sodium bicarbonate (Zegerid OTC) 1 cap(s) Oral once a day valsartan (Diovan 80 mg oral tablet) 80 mg Oral once a day glipiZIDE (glipiZIDE 5 mg oral tablet, extended release) 5 mg Oral two times a day calcium-vitamin [...] uncontrolled (also use V58.67 if pt has oil heaterman (current insulin use) [id number]/23/2012 Your Upcoming Appointments Date Time Location Reason Provider No Appointments found Your Goals/Additional instructions: [facility] Document Id: [id number] Miscellaneous - David Dsouza M.D. - 04/23/2012 10:13 AM CDT Ambulatory Depart Summary [address] [address] Visit Information Name: CALI MURPHY Visit Date: 04/23/2012 10:13:28 Attending Provider: DAVID DSOUZA MD Primary Care [...] medications. Medication/Strength Dose Route Frequency Indications/Special Instructions/Comments glimepiride (glimepiride 4 mg oral tablet) 4 mg Oral once a day with breakfast metformin (metformin 500 mg oral tablet, extended release) 1,000 mg Oral two times a day ciclopirox topical (ciclopirox 0.77% topical cream) 1 kahlil Topical two times a day triamcinolone topical (triamcinolone 0.1% topical cream) 1 kahlil Topical two times a day to affected area omeprazole-sodium bicarbonate (Zegerid OTC) 1 cap(s) Oral once a day valsartan (Diovan 80 mg oral tablet) 80 mg Oral once a day glipiZIDE (glipiZIDE 5 mg oral tablet, extended release) 5 mg Oral two times a day calcium-vitamin [...] your provider for clarification. Additional Information: Source: [facility] POWERCHART Document Id: [id number] Miscellaneous - David Dsouza M.D. - 04/23/2012 9:56 AM CDT Quality Measures Quality Measures Entered On: 04/23/2012 9:57 CDT Performed On: 04/23/2012 9:56 CDT by DAVID DSOUZA MD Diabetes Date of Last Foot Exam : 04/23/2012 CDT Date of Last Diabetes Education : 04/23/2012 CDT DAVID DSOUZA MD - 04/23/2012 9:56 CDT Source: [facility] [employer] Document Id: [id number] Miscellaneous - Conversion, Historical Provider Ser - 04/23/2012 9:39 AM CDT Adult Physical Therapist Aide Intake/History Adult Physical Therapist Aide Intake/History Entered On: 04/23/2012 9:43 CDT Performed On: 04/23/2012 9:39 CDT by KHALIDA MORALES LPN Intake Chief Complaint : follow up Temperature Core : 36.6C(Converted to: 97.9DegF) Peripheral Pulse Rate : 80/min Respiratory Rate : 20/min Heart Rhythm : Regular Systolic Blood Pressure : 128mmHg Diastolic Blood Pressure : 72mmHg NIBP Mean : 91mmHg BP Location : Right upper extremity Blood Pressure Cuff Size : Large Actual Weight : 156.5kg(Converted to: 345lb 0oz) Dosing Weight Clinic : 156.50kg KHALIDA MORALES LPN - 04/23/2012 9:39 CDT Subjective Pain Symptoms : No KHALIDA MORALES LPN - 04/23/2012 9:39 CDT Dependent Habits Tobacco Use/Currently Using : Yes Tobacco Use/Advised to Quit : Yes Exposure to Tobacco Smoke : Patient smokes Smoking Status : Current some day smoker KHALIDA MORALES LPN - 04/23/2012 9:39 CDT Tobacco Use Grid Type : Cigars Other Tobacco Frequency : maybe 2 times per month Last Use : 04/28/2011 KHALIDA MORALES LPN - 04/23/2012 9:39 CDT Caffeine Use Grid Caffeine Use : Current Type : Tea Frequency : Daily KHALIDA MORALES LPN - 04/23/2012 9:39 CDT Recreational Drug Use Grid Drug Use : None KHALIDA MORALES LPN - 04/23/2012 9:39 CDT Allergy Allergies (Active) NKA Estimated Onset Date: Unspecified ; Created By: ELIZABETH BAEZ; Reaction Status: Active ; Category: Drug ; Substance: NKA ; Type: Allergy ; Updated By: ELIZABETH BAEZ; Reviewed Date: 04/23/2012 9:37 CDT Source: [facility] Document Id: [id number] Miscellaneous - Conversion, Historical Provider Ser - 04/23/2012 9:39 AM CDT Health Assessment Health Assessment Entered On: 04/23/2012 9:44 CDT Performed On: 04/23/2012 9:39 CDT by KHALIDA MORALES LPN Health Assessment Complete Health Assessment Complete or Modified : Annual Health Assessment Annual Health Assessment Completed : Yes KHALIDA MORALES LPN - 04/23/2012 9:39 CDT Nutrition Nutrition Risk Factors by History Adult : None KHALIDA MORALES LPN - 04/23/2012 9:39 CDT Functional Current Daily Living Assistance : None KHALIDA MORALES LPN - 04/23/2012 9:39 CDT Dependent Habits Tobacco Use/Currently Using : No Tobacco Use/Advised to Quit : Yes Exposure to Tobacco Smoke : Patient smokes Smoking Status : Current some day smoker KHALIDA MORALES LPN - 04/23/2012 9:39 CDT Tobacco Use Grid Type : Cigars Other Tobacco Frequency : maybe 2 times per month Last Use : 04/28/2011 KHALIDA MORALES LPN - 04/23/2012 9:39 CDT Caffeine Use Grid Caffeine Use : Current Type : Tea Frequency : Daily KHALIDA MORALES [facility] - 04/23/2012 9:39 CDT Recreational Drug Use Grid Drug Use : None KHALIDA MORALES LPN - 04/23/2012 9:39 CDT Psychosocial Domestic Abuse Concerns : None KHALIDA MORALES LPN - 04/23/2012 9:39 CDT Advance Directive Advanced Directives : No Advance Directive Additional Information : Yes KHALIDA MORALES LPN - 04/23/2012 9:39 CDT Educ Needs Learning Style Preference Adult Grid Patient : Demonstration, Printed materials, Verbal explanation Family : None KHALIDA MORALES LPN - 04/23/2012 9:39 CDT Source: [facility] Document Id: [id number] documented in this encounter Plan of Treatment Upcoming Encounters Date Type Specialty Care Team Description 06/26/2022 Appointment Neurology Preet Landeros M.D . [address] [place] [address] [phone] Bria Suh APRN, C.N.P., M.S.N. [address] [place] [address] [phone] 07/25/2022 Appointment Radiology Preet Landeros M.D . [address] [place] [address] [phone] (Wo rk) documented as of this encounter Visit Diagnoses Not on filedocumented in this encounter
--- OUTSIDE RECORDS SUMMARY | 2022-06-23 22:47 | XMS_ITS | Encounter Summary ---
:1970 Author Organization [facility] Address [address] [place] [address] Care Team Providers Name Role Phone Unavailable Primary Care Provider Unavailable Encounter Details Date Type Department Care Team Description 04/04/2011 Hospital Encounter HX [facility] SUR[facility]ON Obi [...] documented as of this encounter Consult Notes Uli Philip M.D. - 04/04/2011 12:00 AM CDT [id number] CHIEF COMPLAINT/REASON FOR VISIT Incisional hernia in upper abdomen. HISTORY OF PRESENT ILLNESS This 41-year-old male is sent for consultation because of an incisional hernia in his upper abdomen. On the scale today, the patient weighed 344 pounds. He says he has had lots of problems losing weight. He has had the hernia for some time and it apparently does cause him some discomfort. Actually, Dr. Villa discovered this hernia and referred him. The patient has felt this as a lump on the left side of his abdomen. He had a ruptured appendix at age 16 and he has a large midline incision that comes above the umbilicus. He had a little bit of what was thought to be superficial cellulitis when he was seen by Amanda Barrios and she placed him on some Augmentin. This was on 03/25/2011. PAST MEDICAL/SURGICAL HISTORY The patient has been a type 2 diabetic for about 10 years. Otherwise, he has been fairly healthy. VITAL SIGNS Weight: 156.1 kilograms. Pulse: 92. Blood pressure: 128/66. PHYSICAL EXAM On exam today, I cannot see any evidence of any type of cellulitis. What I do feel is a large hernia defect that probably is related to his upper midline incision from the previous perforated appendicitis that he had when he was 16 years old. IMPRESSION/REPORT/PLAN Large hernia defect in upper midline incision. I discussed repair of this hernia with him today. He would have to have exploration. I think he would need the placement of mesh. It would require probably an overnight stay in the hospital, but I think it could be done as an outpatient. As far as his weight is concerned, I spent several minutes going over a dietary approach for him and some ideas in that regard including some toning up and exercise. I told him that professionally I have seen patients like him in the past and asked them to lose weight and often they were not able to really get their weight down. I think he is at some risk for strangulation of an incarcerating hernia. Interestingly, today the hernia was incarcerated but I was able to mostly reduce it and could feel the edge. It is quite large, I would say at least 3 or 4 inches in diameter. I would be willing to repair this hernia, but what the patient would like to do is to see how he can get on a diet and start a weight loss program and then come back and see me in a couple of months. So I told him to make an appointment back in later May. Of course, if he gets more significant symptoms, he might have to have this hernia repaired sooner. But that is what he would like to do and I think that is a reasonable thing to do. I think the weight issue is significant for him and with his diabetes and all he needs to really get going on some kind of a weight loss program. RRB/nmd Signed Uli Philip M.D. General Surgery Electronically Signed By: ULI PHILIP MD On: 04/13/2011 11:05 AM Source: [facility] MHSDOLBEYNONRADSYS Document Id: [id number] documented in this encounter Miscellaneous Notes Miscellaneous - Tayo Clark L.P.N. - 04/04/2011 4:07 PM CDT Adult Material Expeditor Intake/History Adult Material Expeditor Intake/History Entered On: 04/04/2011 16:11 CDT Performed On: 04/04/2011 16:07 CDT by TAYO CLARK LPN Intake Chief Complaint: Ventral hernia ref. Amanda Myrom Peripheral Pulse Rate: 92/min Systolic Blood Pressure: 128mmHg Diastolic Blood Pressure: 66mmHg NIBP Mean: 87mmHg BP Location: Right upper extremity Actual Weight: 156.100kg(Converted to: 344lb 2oz) Dosing Weight Clinic: 156.10kg TAYO CLARK LPN - 04/04/2011 16:07 CDT Subjective Pain Symptoms: No TAYO CLARK LPN - 04/04/2011 16:07 CDT Dependent Habits Tobacco Use/Currently Using: Yes TAYO CLARK LPN - 04/04/2011 16:07 CDT Tobacco Use Grid Type: Cigars Last Use: 03/18/2011 TAYO CLARK LPN - 04/04/2011 16:07 CDT Caffeine Use Grid Caffeine Use: Current Type: Tea Frequency: Daily TAYO CLARK LPN - 04/04/2011 16:07 CDT Recreational Drug Use Grid Drug Use: None TAYO CLARK LPN - 04/04/2011 16:07 CDT Allergy Allergies (Active) NKA Estimated Onset Date: Unspecified ; Created By: ELIZABETH BAEZ; Reaction Status: Active ; Category: Drug ; Substance: NKA ; Type: Allergy ; Updated By: ELIZABETH BAEZ; Reviewed Date: 03/08/2010 10:49 CDT Source: [facility] POWERCHART Document Id: [id number] documented in this encounter Plan of Treatment Upcoming Encounters Date Type Specialty Care Team Description 06/26/2022 Appointment Neurology Preet Landeros M.D . [address] [place] [address] [phone] Bria Suh APRN C.N.P., M.S.N. [address] [place] [phone] 07/25/2022 Appointment Radiology Preet Landeros M.D . [address] [place] [address] [phone] (Wo rk) documented as of this encounter Visit Diagnoses Not on filedocumented in this encounter
--- OUTSIDE RECORDS SUMMARY | 2022-06-23 22:47 | XMS_ITS | Encounter Summary ---
:1970 Author Organization [facility] Address [address] [place] [address] Care Team Providers Name Role Phone Unavailable Primary Care Provider Unavailable Encounter Details Date Type Department Care Team Description 09/27/2013 Hospital Encounter HX [facility]HB FAMILYPRA Jenni [...] Reading Time Taken Comments Blood Pressure 122/78 09/27/2013 9:57 AM PAPERHANGER AND PAINTER Pulse 72 09/27/2013 9:57 AM PAPERHANGER AND PAINTER Temperature - - Respiratory Rate 16 09/27/2013 9:57 AM PAPERHANGER AND PAINTER Oxygen Saturation - - Inhaled Oxygen Concentration - - Weight 151 kg (332 lb 14.3 oz) 09/27/2013 9:57 AM PAPERHANGER AND PAINTER Height 169 cm (5' 6.54) 09/27/2013 9:57 AM PAPERHANGER AND PAINTER Body Mass Index 52.87 09/27/2013 9:57 AM PAPERHANGER AND PAINTER documented in this encounter Medications at Time [...] documented as of this encounter Progress Notes Dvaid Dsouza M.D. - 09/27/2013 9:10 AM CST [id number] CHIEF COMPLAINT/REASON FOR VISIT Recheck diabetes, coughing and psoriasis. HISTORY OF PRESENT ILLNESS This 43-year-old male patient has had A1c checked and it is still just above 8, so we need to increase his Amaryl to 6 mg daily and he will recheck an A1c in 3 months. Could check fasting blood sugar in 1 month or monitor that at home. Continue with the metformin 1000 mg twice a day. He also is havingcough and is wondering whether it might be from the Diovan. He did have a cough on lisinopril. He will check his blood pressure daily, call if it goes above [address] him probably on Norvasc 5 mg daily unless previous problem. He will recheck with progress call in 1 week. He also has problems with what appears to be psoriasis on his wrist, elbows. On triamcinolone cream, not helping. We will try him on Lidex gel 0.05% twice a day. Recheck in 1 month. EMR record reviewed and updated. SYSTEMS REVIEW RESPIRATORY: Cough. No shortness of breath. CARDIOVASCULAR: No palpitation of the heart, no chest pain. GI: No nausea, vomiting, diarrhea, constipation or recent change in weight. : No dysuria, no hematuria. All other systems reviewed and negative, except as mentioned above. PHYSICAL EXAMINATION SKIN: Has thick whitish plaques on the elbows and a 3 cm patch over the right wrist medially, slightly posteriorly. No evidence for infection. IMPRESSION/REPORT/PLAN 1. Diabetes mellitus, needing further treatment to bring his A1c under 8. Increase Amaryl from 4 to 6 mg daily. Check daily blood pressure and blood sugar. Recheck in 3 months, return sooner as needed. 2. For the coughing, stop the Diovan and observe response. If coughing subsides, could restart the Diovan and see if it reoccurs or switch to a different hypertensive medication, suggesting Norvasc. 3. For the skin patches which appear to be psoriasis, right wrist patch, Lidex gel 0.05% twice a day. If problem persists, get either Dermatology consultation or Family Medicine consultation with Dr. Sofia Godoy. Recheck in 2 months, return sooner as needed. David Dsouza M.D./karen Electronically Signed By: DAVID DSOUZA MD On: 09/28/2013 09:59 AM Source: [facility] MHSDOLBEYNONRADSYS Document Id: [id number] RHANGER AND PAINTER documented in this encounter Miscellaneous Notes Miscellaneous - David Dsouza M.D. - 09/27/2013 10:45 AM CST Ambulatory Patient Summary [address] [address] Visit Information Name: CALI MURPHY [facility] Number: [id number] Current Date: 09/27/2013 10:45:42 Physicians Attending Provider: DAVID DSOUZA MD Primary [...] 1 kahlil, Topical, two times a day New Routed to [facility] , glimepiride (glimepiride 4 mg oral tablet) 1.5 Tablet(s), Oral, once a day with breakfast New Routedto [facility] , metFORMIN (metformin 500 mg oral tablet, extended release) 2 Tablet(s), Oral, two times a day Routedto [facility] , multivitamin (multivitamin) once a day omeprazole-sodium bicarbonate (Zegerid OTC) 1 cap, Oral, once a day valsartan (Diovan 80 mg oral tablet) 1 Tablet(s), Oral, once a day Stop Taking the Following Medications: Medication list as of 09-27-13 10:45 Attention: If you have any medications at home that are not on this list, DO NOT take them until youcontact your provider for clarification. Give a copy of your medication list to your primary care provider. Update your medication list any time medications or doses are changed and carry your medication list at all times in case of emergency. Your Allergies & Intolerances Substance Reaction Symptoms Category Comments lisinopril Cough Drug Your Problem List Problem Status Onset Comments Morbid Obesity (BMI > 40) (V85.4) Active Hernia, ventral, unspecified Active Diabetes mellitus II, uncontrolled (also use V58.67 if pt has longterm (current insulin use) Wuosab0004/23/2012 Psoriasis Active 01/26/2013 Your Upcoming Appointments Date Time Location Reason Provider No Appointments found Attention: Contact your local Clinic if further appointment detail needed. Your Goals/Additional instructions: Source: [facility] POWERCHART Document Id: [id number] RHANGER AND PAINTER Miscellaneous - David Dsouza M.D. - 09/27/2013 10:45 AM CST Ambulatory Depart Summary [address] [address] Visit Information Name: CALI MURPHY [facility] Number: [id number] Visit Date: 09/27/2013 10:45:36 Attending Provider: DAVID DSOUZA MD Primary Care [...] 1 kahlil, Topical, two times a day New Routed to [facility] , glimepiride (glimepiride 4 mg oral tablet) 1.5 Tablet(s), Oral, once a day with breakfast New Routedto [facility] , metFORMIN (metformin 500 mg oral tablet, extended release) 2 Tablet(s), Oral, two times a day Routedto [facility] , multivitamin (multivitamin) once a day omeprazole-sodium bicarbonate (Zegerid OTC) 1 cap, Oral, once a day valsartan (Diovan 80 mg oral tablet) 1 Tablet(s), Oral, once a day Stop Taking the Following Medications: Medication list as of 09-27-13 10:45 Attention: If you have any medications at home that are not on this list, DO NOT take them until youcontact your provider for clarification. Give a copy of your medication list to your primary care provider. Update your medication list any time medications or doses are changed and carry your medication list at all times in case of emergency. Additional Information: Source: [facility] [employer] Document Id: [id number] RHANGER AND PAINTER Miscellaneous - David Dsouza M.D. - 09/27/2013 10:39 AM CST Quality Measures Quality Measures Entered On: 09/27/2013 10:40 PAPERHANGER AND PAINTER Performed On: 09/27/2013 10:39 PAPERHANGER AND PAINTER by DAVID DSOUZA MD Diabetes Date of Last Foot Exam : 09/27/2013 PAPERHANGER AND PAINTER Date of Last Diabetes Education : 09/27/2013 PAPERHANGER AND PAINTER DAVID DSOUZA MD - 09/27/2013 10:39 PAPERHANGER AND PAINTER Source: [facility] [employer] Document Id: [id number] PAPERHANGER AND PAINTER!4 RHANGER AND PAINTER Miscellaneous - Conversion, Historical Provider Ser - 09/27/2013 9:57 AM PAPERHANGER AND PAINTER 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 Intake/History 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 Intake/History Entered On: 09/27/2013 10:02 PAPERHANGER AND PAINTER Performed On: 09/27/2013 9:57 PAPERHANGER AND PAINTER by TROY MARY Intake Chief Complaint : Diabetic check Temperature Core : 36.6 DegC(Converted to: 97.9 DegF) Peripheral Pulse Rate : 72 /min Respiratory Rate : 16 /min Systolic Blood Pressure : 122 mmHg Diastolic Blood Pressure : 78 mmHg NIBP Mean : 93 mmHg BP Location : Right lower extremity Blood Pressure Cuff Size : Regular Height : 169 cm(Converted to: 5 ft 7 inch(es), 66.54 inch(es)) Actual Weight : 151 kg(Converted to: 332 lb 14 oz) Dosing Weight Clinic : 151 kg Clinic BSA : 2.66 Body Mass Index : 52.87 kg/m2 TROY MARY 09/27/2013 9:57 PAPERHANGER AND PAINTER General Info Languages : Venezuelan TROY MARY 09/27/2013 9:57 PAPERHANGER AND PAINTER Subjective Pain Symptoms : No TROY MARY 09/27/2013 9:57 PAPERHANGER AND PAINTER Dependent Habits Tobacco Use/Currently Using : Yes Tobacco Use/Advised to Quit : Yes Exposure to Tobacco Smoke : Patient smokes Smoking Status : Current some day smoker TROY MARY 09/27/2013 9:57 PAPERHANGER AND PAINTER Tobacco Use Grid Type : Cigars TROY MARY 09/27/2013 9:57 PAPERHANGER AND PAINTER Caffeine Use Grid Caffeine Use : Current Type : Chocolate, Coffee, Soft drinks, Tea Frequency : Daily TROY MARY 09/27/2013 9:57 PAPERHANGER AND PAINTER Recreational Drug Use Grid Drug Use : None TROY MARY 09/27/2013 9:57 PAPERHANGER AND PAINTER [facility] Document Id: [id number] PAPERHANGER AND PAINTER!36 documented in this encounter Plan of Treatment Upcoming Encounters Date Type Specialty Care Team Description 06/26/2022 Appointment Neurology Preet Landeros M.D . [address] [place] [phone] Bria Suh APRN, C.N.P., M.S.N. [address] [place] [phone] 07/25/2022 Appointment Radiology Preet Landeros M.D . [address] [place] [phone] (Wo rk) documented as of this encounter Visit Diagnoses Not on filedocumented in this encounter
--- OUTSIDE RECORDS SUMMARY | 2022-06-23 22:47 | XMS_ITS | Encounter Summary ---
:1970 Author Organization [facility] Address [address] [place] [address] Care Team Providers Name Role Phone Unavailable Primary Care Provider Unavailable Encounter Details Date Type Department Care Team Description 06/17/2011 Hospital Encounter HX [facility] FBCV SURGEON Obi [...] More than 4 times per year 06/02/2022 advent services? Do you belong to any clubs [...] encounter Progress Notes Uli Philip M.D. - 06/17/2011 12:00 AM CDT [id number] CHIEF COMPLAINT/REASON FOR VISIT Followup status post ventral hernia repair. HISTORY OF PRESENT ILLNESS The patient is here for a postoperative check after he underwent a ventral hernia repair that was related to his previous midline incision but was located off to the left and was incarcerated with omentum. He has done quite well from the surgery and is making recovery. IMPRESSION/REPORT/PLAN Doing well status post ventral hernia repair. We plan to send him back to work on 07/15/2011 with a restriction of no more than 20 pounds of weight lifting for another month after that. RRB/nmd Signed Uli Philip M.D. General Surgery Electronically Signed By: ULI PHILIP MD On: 06/20/2011 06:00 PM Source: [facility] GAYATHRI Document Id: [id number] documented in this encounter Miscellaneous Notes Miscellaneous - Uli Philip M.D. - 06/17/2011 2:13 PM CDT Return to Work Status Return to Work Status Entered On: 06/17/2011 14:17 CDT Performed On: 06/17/2011 14:13 CDT by ULI PHILIP MD Return to Work Status Date/Time of Injury: 06/17/2011 14:13 CDT Work Injury: No Work Status: Other: keep lifting under 20 ppounds. 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 ENGINEER ULI PHILIP MD - 06/17/2011 14:13 CDT Work Restrictions Grid Climbing Stairs: Frequently Firm Grasping: Frequently Keyboarding: Frequently Kneeling: Not at all Lifting: Rarely Operating Machinery: Occasionally Reaching Above Shoulders: Occasionally Reaching Below Knees: Rarely Repetitive Hand/Wrist Motions: Frequently Squatting: Occasionally Standing/Walking: Frequently Twisting/Turning: Frequently ULI PHILIP MD - 06/17/2011 14:13 CDT Weightlifting Capabilities: 11-25 lbs ULI PHILIP MD - 06/17/2011 14:13 CDT Source: [employer] Document Id: [id number] CDT!22 Miscellaneous - Conversion, Historical Provider Ser - 06/17/2011 1:57 PM CDT Ambulatory Vitals Height Weight Ambulatory Vitals Height Weight Entered On: 06/17/2011 13:57 CDT Performed On: 06/17/2011 13:57 CDT by GUICHO KELLER LPN Vitals/Ht/Wt Systolic Blood Pressure: 122mmHg Diastolic Blood Pressure: 78mmHg NIBP Mean: 93mmHg BP Location: Right upper extremity GUICHO KELLER LPN - 06/17/2011 13:57 CDT Source: [employer] Document Id: [id number] CDT!6 Miscellaneous - Conversion, Historical Provider Ser - 06/17/2011 1:56 PM CDT 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 Onset of Symptoms: 05-29-11 Temperature Core: 36.6C(Converted to: 97.9DegF) Peripheral Pulse Rate: 100/min Respiratory Rate: 20/min Systolic Blood Pressure: 170mmHg (>HHI) Diastolic Blood Pressure: 80mmHg NIBP Mean: 110mmHg BP Location: Right upper extremity Height: 170.00cm(Converted to: 5ft 7inch(es), 66.93inch(es)) Actual Weight: 149.700kg(Converted to: 330lb 1oz) Weight Source: Standing scale Dosing Weight Clinic: 149.70kg Clinic BSA: 2.66 Body Mass Index: 51.80kg/m2 GUICHO KELLER LPN - 06/17/2011 13:56 CDT Subjective Pain Symptoms: No GUICHO KELLER LPN - 06/17/2011 13:56 CDT Dependent Habits Tobacco Use/Currently Using: No GUICHO KELLER LPN - 06/17/2011 13:56 CDT Tobacco Use Grid Type: Cigars Last Use: 04/28/2011 GUICHO KELLER LPN - 06/17/2011 13:56 CDT Caffeine Use Grid Caffeine Use: Current Type: Tea Frequency: Daily GUICHO KELLER LPN - 06/17/2011 13:56 CDT Recreational Drug Use Grid Drug Use: None GUICHO KELLER LPN - 06/17/2011 13:56 CDT Allergy Allergies (Active) NKA Estimated Onset Date: Unspecified ; Created By: ELIZABETH BAEZ; Reaction Status: Active ; Category: Drug ; Substance: NKA ; Type: Allergy ; Updated By: ELIZABETH BAEZ; Reviewed Date: 06/04/2011 14:21 CDT Source: [facility] [employer] Document Id: [id number] CDT!33 documented in this encounter Plan of Treatment Upcoming Encounters Date Type Specialty Care Team Description 06/26/2022 Appointment Neurology Preet Landeros M.D . [address] [place] [phone] Bria Suh APRN, C.N.P., M.S.N. [address] [place] [phone] 07/25/2022 Appointment Radiology Preet Landeros M.D . [address] [place], [place] [phone] (Wo rk) documented as of this encounter Visit Diagnoses Not on filedocumented in this encounter
--- OUTSIDE RECORDS SUMMARY | 2022-06-23 22:47 | XMS_ITS | Encounter Summary ---
:1970 Author Organization [facility] Address [address] [place] [address] Care Team Providers Name Role Phone Unavailable Primary Care Provider Unavailable Encounter Details Date Type Department Care Team Description 2010 Hospital Encounter HX [facility] FBHB FAMILYPRA Jenni [...] or relatives? How often do you attend samaritan or More than 4 times per year 06/02/2022 alevism services? Do you belong to any clubs or Yes 06/02/2022 organizations such as samaritan groups, unions, fraternal or athletic groups, or [...] 81 mg by mouth 0 03/09 daily. cetirizine (ZyrTEC) 10 mg Zyrtec 10 mg oral 0 05/17/2020 tablet tablet PRN multivitamin capsule daily. 0 03/09/201001/13 documented as of this encounter H&P Notes David Dsouza M.D. - 2010 12:00 AM CDT [id number] IMPRESSION/REPORT/PLAN 1. Hypertriglyceridemia 272.1. Lipid panel. 2. Iron deficiency anemia V78.0. CBC. 3. Weight gain 783.1. TSH. 4. Diabetes mellitus type 2, 250.00. Urinalysis microalbumin of urine hemoglobin A1C complete metabolic panel. Patient will be sent copy of test results. Recheck in 3 years return sooner PRN. Type 2 diabetes care plan: 1. Annual physical examination. 2. Annual examination by chief informatics officer. 3. Visit every 3 months for glycosylated hemoglobin. 4. Other chemistry studies as needed. 5. No smoking. 6. Maintain normal BP and cholesterol and triglycerides in normal range for patient. 7. Annual Micro Albumin screening. Proper skin care, especially trimming of fingernails and toenails. 5. Patient will wear seat belt when riding or driving a car, eat low sodium high calcium high potassium less than 20 gram saturated fat diet with calories to maintain ideal body weight, walk equivalent to half hour a day for exercise, see dentist once or twice a year, use ear protection for loud noises, eye examination as needed, continue to have annual medical examinations. CHIEF COMPLAINT/REASON FOR VISIT Would like annual assessment of diabetes refill medications, coughing HISTORY OF PRESENT ILLNESS This 40-year-old male patient needs refill of his diabetic medications and diabetic evaluation. He generally is doing well except he notices a cough, could be from lisinopril. We will stop that and switch over to Diovan. He is on lisinopril 20 mg daily will go to 80 mg of Diovan increasing dose as needed to get his blood pressure under 120/80. He also wants screening for iron deficiency anemia. We will do CBC. He has had some weight gain. We will do thyroid function testing for that. He has hypertriglyceridemia, will get lipid panel. Electronic medical record reviewed initialized and updated. CURRENT MEDICATIONS 1. Diovan 80 mg daily 2. Glipizide ER 5 mg b.i.d. 3. Metformin ER 500 mg 2 b.i.d. could be taken all at one time but will start with b.i.d. dosing and check sugars 4. Zyrtec 10 mg for allergies 5. Omeprazole 20 mg daily over the counter 6. Vitamin C 7. Multivitamin 8. Aspirin 81 mg daily ALLERGIES See EMR SYSTEMS REVIEW 1. Allergic/immunologic: The patient is having no itching, no signs of allergies. No signs of immune deficiency. 2. Constitutional symptoms: The patient has had [...] except as mentioned above. PAST MEDICAL/SURGICAL HISTORY 1. Ruptured appendix approximately 1982 PREVENTIVE SERVICES See EMR SOCIAL HISTORY Patient does not smoke. He is single. He works at [employer]. Alcohol use none. FAMILY HISTORY Brother diabetes. Maternal grandmother blood clots. VITAL SIGNS See EMR PHYSICAL EXAM AREA EXAM TEXT GENERAL Appearance, development, nutrition, [...] tenderness; liver and spleen are not palpable; no evidence for hernia. EXTREMITIES No edema, no significant varicosities. Musculoskeletal: [...] Deep tendon reflexes symmetrical +2. Normal sensation. SFO/clf Signed David Dsouza M.D. Family Medicine Electronically Signed By:DAVID DSOUZA MD On 03/13/2010 01:06 PM Source: [facility] MHSDOLBEYNONRADSYS Document Id: [id number] documented in this encounter Miscellaneous Notes Miscellaneous - David Dsouza M.D. - 03/12/2010 8:30 AM CDT Reminder Msg Document Contains Addenda Addendum by TROY MARY on 12 March 2010 11:04:37 CDT Results mailed From: DAVID DSOUZA MD To: TROY MARY Sent: 03/12/2010 08:30:50 CDT ! Show up: 03/12/2010 08:30:00 CDT Subject: Reminder Msg Actions: Notify patient of results Due Date/Time: 03/12/2010 08:30:00 CDT Source: [facility] POWERCHART Document Id: [id number] Miscellaneous - David Dsouza M.D. - 2010 4:30 PM CDT Reminder Msg Document Contains Addenda Addendum by ELIZABETH BAEZ on 2010 17:27:03 CDT mailed results to patient From: DAVID DSOUZA MD To: ELIZABETH BAEZ Sent: 2010 16:30:13 CDT ! Show up: 2010 16:29:00 CDT Subject: Reminder Msg Actions: Notify patient of results Due Date/Time: 2010 16:29:00 CDT Source: [facility] [employer] Document Id: [id number] Miscellcolin - David Dsouza M.D. - 2010 3:15 PM CDT Reminder Msg Document Contains Addenda Addendum by ELIZABETH BAEZ on 2010 17:18:29 CDT mailed results to patient From: DAVID DSOUZA MD To: ELIZABETH BAEZ Sent: 2010 15:15:02 CDT ! Show up: 2010 15:14:00 CDT Subject: Reminder Msg Actions: Notify patient of results Due Date/Time: 2010 15:14:00 CDT Source: [facility] POWERCHART Document Id: [id number] Miscellaneous - David Dsouza M.D. - 2010 10:13 AM CDT Ambulatory Depart Summary [address] [address] Visit Information Name: CALI MURPHY Current Date: 2010 10:13:58 Primary Care Provider: DAVID DSOUZA MD [id number] CALI MURPHY has been given the following list of medications: Your Medications It is important to take your medications as directed. Use a pill box or chart to help remind you to take your medications. Please let your doctor or nurse know if you have problems taking your medications. Medication/Strength Dose Route Frequency Indications/Special Instructions/Comments valsartan (Diovan 80 mg oral tablet) 80 mg Oral once a day glipiZIDE (glipiZIDE 5 mg oral tablet, extended release) 5 mg Oral two times a day metformin (metformin 500 mg oral tablet, extended release) 1,000 mg Oral two times a day cetirizine (Zyrtec 10 mg oral tablet) Allergy symptoms omeprazole (Prilosec OTC) Oral once a day ascorbic acid (Vitamin C) multivitamin (multivitamin) once a day aspirin (aspirin) 81 mg Oral once a day lisinopril (lisinopril) 20 mg Oral once a day metformin (metformin 1000 mg oral tablet) 1,000 mg Oral two times a day NEEDS APPOINTMENT glipiZIDE (glipiZIDE 5 mg oral tablet) 5 mg Oral two times a day NEEDS APPOINTMENT Additional Information: Yes - Current list of reconciled medications is provided and explained to the patient and/or family, guardian/caregiver. Source: [facility] POWERCHART Document Id: [id number] Miscellaneous - Elizabeth Baez, L.P.N. 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 Intake/History Entered On: 2010 9:27 CDT Performed On: 2010 9:24 CDT by ELIZABETH BAEZ Intake Chief Complaint: diabetic checkup Peripheral Pulse Rate: 76bpm Respiratory Rate: 18br/min Systolic Blood Pressure: 116mmHg Diastolic Blood Pressure: 76mmHg NIBP Mean: 89mmHg BP Location: Left upper extremity Actual Weight: 152.800kg(Converted to: 336.866lb) Dosing Weight Clinic: 152.80kg ELIZABETH BAEZ - 2010 9:24 CDT Subjective Pain Symptoms: No SASHA ELIZABETH SERGIO - 2010 9:24 CDT Dependent Habits Tobacco Use/Currently Using: No SASHA ELIZABETH HILL - 2010 9:24 CDT Allergies Allergies (Active) NKA Estimated Onset Date: Unspecified ; Created By: ELIZABETH BAEZ; Reaction Status: Active ; Category: Drug ; Substance: NKA ; Type: Allergy ; Updated By: ELIZABETH BAEZ; Reviewed Date: 03/08/2010 10:49 CDT Health History I Cardiovascular Past Medical History Grid Chest Pain/Angina: paternal side heart disease Heart Attack: paternal side Other: Grandparents, mgm blood clot DAVID DSOUZA MD - 2010 9:46 CDT Health History II Endocrine/Metabolic Past Med Hx Grid Diabetes: Sibling, brother DAVID DSOUZA MD - 2010 9:46 CDT Source: [employer] Document Id: [id number] CDT!9 Miscellaneous - Laura Lange, L.P.NBon - 03/16/2009 11:04 AM CDT Quality Measures Quality Measures Entered On: 09/12/2010 11:04 BANKRUPTCY LAW SPECIALIST Performed On: 03/16/2009 11:04 CDT by LAURA LANGE LPN Diabetes Date of Last Eye Exam: 03/16/2009 CDT LAURA LANGE LPN - 09/12/2010 11:04 BANKRUPTCY LAW SPECIALIST [facility] Document Id: [id number] BANKRUPTCY LAW SPECIALIST!3 RUPTCY LAW SPECIALIST documented in this encounter Plan of Treatment Upcoming Encounters Date Type Specialty Care Team Description 06/26/2022 Appointment Neurology Preet Landeros M.D . [address] [place] [phone] Bria Suh APRN, C.N.P., M.S.N. [address] [place] [phone] 07/25/2022 Appointment Radiology Preet Landeros M.D . [address] [place] [phone] (Wo rk) documented as of this encounter Visit Diagnoses Not on filedocumented in this encounter
--- OUTSIDE RECORDS SUMMARY | 2022-06-23 22:47 | XMS_ITS | Encounter Summary ---
:1970 Author Organization [facility] Address [address] [place] [address] Care Team Providers Name Role Phone Unavailable Primary Care Provider Unavailable Encounter Details Date Type Department Care Team Description 03/25/2011 Hospital Encounter [facility]X [facility] MyrMayra andres, LINE UP WORKER, C.N.P. [address], [place] [phone] (Wo rk) Social History Tobacco [...] Progress Notes Atiya Felipe, BRET, C.N.P. - 03/25/2011 12:00 AM CDT [id number] CHIEF COMPLAINT/ REASON FOR VISIT 1. Lump on the abdomen. 2. Diabetes type 2 HISTORY OF PRESENT ILLNESS 1. Cali states he has had a lump on the left side of his abdomen for the past month. Sometimes it feels firm other times it is soft it has never been really painful. It is a little bit red today. He does have a midline incision from a ruptured appendix when he was 15 or 16 years old. 2. Diabetes type 2. He is due for multiple preventive services for his diabetes. He is wondering if there is a less expensive blood pressure medicine he can take. He is due to schedule for his annual exam with Dr. Dsouza CURRENT MEDICATIONS See depart summary from today ALLERGIES None PREVENTIVE: Due for microalbumin LDL creatinine and A1c orders were put in for him to return fasting this week Vitals see EMR PHYSICAL EXAM Well developed, morbidly obese male in no acute distress. SKIN: Warm and dry. TMs clear. Throat clear. Neck: Supple. LUNGS: Clear to auscultation. HEART: Regular rate and rhythm. ABDOMEN: Soft, nontender. He has a 7 mm bulge in the abdomen just to the left of his appendectomy incision, skin is mildly erythematous. There is no tenderness or evidence of drainage, no hepatosplenomegaly. EXTREMITIES: Warm, dry, no peripheral edema normal sensation tops bottoms of feet with monofilament. IMPRESSION/REPORT/PLAN 1. Possible ventral hernia with superficial cellulitis. Augmentin 875 milligrams one twice daily for 10 days. He is going to schedule for consult Dr. Leiva 2. Diabetes type 2. He will return fasting for A1c microalbumin lipid panel and BMP will also get CBC and he will schedule followup physical exam with Dr. Dsouza. Diabetes education was done today we discussed importance of keeping A1c less than 8 and he has been advised to work on healthy diet and regular exercise program. He would benefit from weight loss. Goals were put in the EMR. He was given a copy of his diabetes score card SJM/clf Signed Atiya Felipe, MSN, AGRICULTURAL SALES REPRESENTATIVE, CDE Family Nurse Practitioner Electronically Signed By: ATIYA FELIPE CNP On: 03/26/2011 10:15 AM Source: [facility] MHSDOLBEYNONRADSYS Document Id: [id number] documented in this encounter Nursing Notes Atiya Felipe APRN, C.N.P. - 03/25/2011 4:20 PM CDT Receptionist Intake (Adult) Receptionist Intake (Adult) Entered On: 03/25/2011 16:23 CDT Performed On: 03/25/2011 16:20 CDT by ATIYA FELIPE CNP Assessment Program Type: Non-Program Diabetes Referring Provider: DAVID DSOUZA MD Special needs: None Method Used for DSME: Individual Last Educator Visit Date: 03/25/2011 CDT Diabetes Type: Type 2 19 years and older Ethnicity: White/ Diabetes Onset: 1999 Current Treatment: Oral agents Medication Compliance: Takes meds as prescribed Diabetes Medications Reviewed: Yes Medication Categories: Biguanide, Sulfonylurea Exercise Type: None Time Spent With Patient: 15 Minutes ATIYA FELIPE [facility] - 03/25/2011 16:20 CDT Comprehensive Program Goals Diabetes Education Goals Grid Diabetes Education Goal #1 row Diabetes Education Goal #2 row Diabetes Education Goal #3 row Date Goal Set: 03/25/2011 CDT 03/25/2011 CDT 03/25/2011 CDT Goal: A1c less than 8.0 weight loss regular exercise Related Content Area: Medication Healthy eating Exercise/activity ATIYA FELIPE [facility] - 03/25/2011 16:20 CDT ATIYA FELIPE [facility] - 03/25/2011 16:20 CDT AMARILYS FELIPE [facility] - 03/25/2011 16:20 CDT [facility] Document Id: [id number] CDT!30 documented in this encounter Miscellaneous Notes Miscellaneous - Atiya Felipe APRN, C.N.P. - 03/25/2011 4:46 PM CDT Ambulatory Patient Summary [address] [address] Visit Information Name: CALI MURPHY Current Date: 03/25/2011 16:46:13 Primary Care Provider: DAVID DSOUZA MD Your Medications Here is a list of your medications. It is important to take your medications as directed. Use a pillbox or chart to help remind you to take your medications. Please let your doctor or nurse know if you have problems taking your medications. Medication/Strength Dose Route Frequency Indications/Special Instructions/Comments amoxicillin-clavulanate (Augmentin 875 mg oral tablet) 1 tab(s) Oral two times a day for 10 Days calcium-vitamin D (Calcium 600+D) Oral two times a day metformin (metformin 500 mg oral tablet, extended release) 1,000 mg Oral two times a day valsartan (Diovan 80 mg oral tablet) 80 mg Oral once a day need annual CPX glipiZIDE (glipiZIDE 5 mg oral tablet, extended release) 5 mg Oral two times a day cetirizine (Zyrtec 10 mg oral tablet) Allergy symptoms omeprazole (Prilosec OTC) Oral once a day ascorbic acid (Vitamin C) multivitamin (multivitamin) once a day aspirin (aspirin) 81 mg Oral once a day lisinopril (lisinopril) 20 mg Oral once a day Your Allergies & Intolerances Substance Reaction Symptoms Category Comments NKA Drug Your Problem List Problem Status Onset Comments Diabetes mellitus type II Active Morbid Obesity (BMI > 40) (V85.4) Active Your Recommendations We want to make [...] Additional Information Diabetes: A1C every 6 months 2010 09/08/2010 Average of blood sugar over a 2-3 month timeframe. Diabetes and/or Vascular: Consider aspirin or antiplatelet therapy 2010 Ongoing May reduce your risk of heart attack and stroke if on aspirin or anti- platelet therapy. Diabetes: Creatinine every 1 year 2010 2011 Diabetes: Diabetes Education every 1 year 03/25/2011 03/24/2012 Diabetes: Eye Exam every 1 year 02/05/2011 02/05/2012 Diabetes: Foot Exam every 1 year 03/25/2011 03/24/2012 Diabetes: Microalbumin/Urine Protein every 1 year 2010 2011 Diabetes and/or Vascular: LDL every 1 year 2010 2011 Lipid Panel every 5 years Age 20-75 2010 03/08/2015 Checks blood for good (HDL) and bad [...] Upcoming Appointments Date Time Location Reason Provider 03/28/2011 08:15 [facility] Lab Your Goals/Additional instructions: Source: [facility] Eventap Document Id: [id number] Miscellaneous - Atiya Felipe APRN, C.N.P. - 03/25/2011 4:46 PM CDT Ambulatory Depart Summary [address] [address] Visit Information Name: CALI MURPHY Current Date: 03/25/2011 16:46:12 Primary Care Provider: DAVID DSOUZA MD CALI MURPHY has been given the following list of medications: Your Medications It is important to take your medications as directed. Use a pill box or chart to help remind you to take your medications. Please let your doctor or nurse know if you have problems taking your medications. Medication/Strength Dose Route Frequency Indications/Special Instructions/Comments amoxicillin-clavulanate (Augmentin 875 mg oral tablet) 1 tab(s) Oral two times a day for 10 Days calcium-vitamin D (Calcium 600+D) Oral two times a day metformin (metformin 500 mg oral tablet, extended release) 1,000 mg Oral two times a day valsartan (Diovan 80 mg oral tablet) 80 mg Oral once a day need annual CPX glipiZIDE (glipiZIDE 5 mg oral tablet, extended release) 5 mg Oral two times a day cetirizine (Zyrtec 10 mg oral tablet) Allergy symptoms omeprazole (Prilosec OTC) Oral once a day ascorbic acid (Vitamin C) multivitamin (multivitamin) once a day aspirin (aspirin) 81 mg Oral once a day lisinopril (lisinopril) 20 mg Oral once a day Additional Information: Yes - Current list of reconciled medications is provided and explained to the patient and/or family, guardian/caregiver. Source: [facility] MoBeamCHART Document Id: [id number] Electronically signed by [facility] Account[facility] File Clerk [id number] at 02/16/2017 4:26 PM CDT Miscellaneous - Atiya Felipe APRN, C.N.P. - 03/25/2011 4:18 PM CDT Quality Measures Quality Measures Entered On: 03/25/2011 16:19 CDT Performed On: 03/25/2011 16:18 CDT by ATIYA FELIPE CNP Diabetes Date of Last Foot Exam: 03/25/2011 CDT Date of Last Diabetes Education: 03/25/2011 CDT ATIYA FELIPE CNP - 03/25/2011 16:18 CDT Foot Exam Grid Left foot exam Right foot exam Dorsalis Pedis Pulse: Normal Normal Capillary Refill: Less than 3 seconds Less than 3 seconds 10 gm Monofilament Sensation Check: Intact Intact ATIYA FELIPE CNP - 03/25/2011 16:18 CDT ATIYA FELIPE CNP - 03/25/2011 16:18 CDT Source: [facility] POWERCHART Document Id: [id number] CDT!13 Miscellaneous - Bean Deng Provider Ser - 03/25/2011 4:08 PM CDT 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 [employer] 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 Cartoonist Intake/History Entered On: 03/25/2011 16:10 CDT Performed On: 03/25/2011 16:08 CDT by CORINA HUMMEL LPN Intake Chief Complaint: complains of lump on abdomen x l month Temperature Core: 37.0C(Converted to: 98.6DegF) Peripheral Pulse Rate: 76/min Systolic Blood Pressure: 138mmHg Diastolic Blood Pressure: 78mmHg NIBP Mean: 98mmHg BP Location: Right upper extremity Height: 167.00cm(Converted to: 5ft 6in, 65.75in) Actual Weight: 157.000kg(Converted to: 346lb 2oz) Dosing Weight Clinic: 157.00kg Clinic BSA: 2.70 Body Mass Index: 56.29kg/m2 CORINA HUMMEL LPN - 03/25/2011 16:08 CDT Subjective Pain Symptoms: No CORINA HUMMEL [facility] - 03/25/2011 16:08 CDT Dependent Habits Tobacco Use/Currently Using: Yes Tobacco Use/Advised to Quit: Yes CORINA HUMMEL [facility] - 03/25/2011 16:08 CDT Tobacco Use Grid Type: Cigars Comments (Comment: 1 or 2 monthly [CORINA HUMMEL [facility] - 03/25/2011 16:08 CDT] ) CORINA HUMMEL [facility] - 03/25/2011 16:08 CDT Alcohol Use: No CORINA HUMMEL [facility] 03/25/2011 16:08 CDT Caffeine Use Grid Caffeine Use: Current Type: Tea Frequency: Daily CORINA HUMMEL [facility] - 03/25/2011 16:08 CDT Recreational Drug Use Grid Drug Use: None CORINA HUMMEL [facility] 03/25/2011 16:08 CDT Allergy Allergies (Active) NKA Estimated Onset Date: Unspecified ; Created By: ELIZABETH BAEZ; Reaction Status: Active ; Category: Drug ; Substance: NKA ; Type: Allergy ; Updated By: ELIZABETH BAEZ; Reviewed Date: 03/08/2010 10:49 CDT Source[facility] Document Id: [id number] CDT!31 documented in this encounter Plan of Treatment Upcoming Encounters Date Type Specialty Care Team Description 06/26/2022 Appointment Neurology Preet Landeros M.D . [address] [place] [phone] Bria Suh APRN, C.N.P., M.S.N. [address] [place] [phone] 07/25/2022 Appointment Radiology Preet Landeros M.D . [address] [place] [phone] (Wo rk) documented as of this encounter Visit Diagnoses Not on filedocumented in this encounter
--- OUTSIDE RECORDS SUMMARY | 2022-06-23 22:47 | XMS_ITS | Encounter Summary ---
:1970 Author Organization [facility] Address [address] [place] [address] Care Team Providers Name Role Phone Unavailable Primary Care Provider Unavailable Encounter Details Date Type Department Care Team Description 01/26/2013 Hospital Encounter HX [facility] Jenni [...] or relatives? How often do you attend anabaptist or More than 4 times per year 06/02/2022 quaker services? Do you belong to any clubs or Yes 06/02/2022 organizations such as anabaptist groups, unions, fraternal or athletic groups, or [...] Reading Time Taken Comments Blood Pressure 126/78 01/26/2013 9:37 AM CDT Pulse 76 01/26/2013 9:37 AM CDT Temperature - - Respiratory Rate 18 01/26/2013 9:37 AM CDT Oxygen Saturation - - Inhaled Oxygen Concentration - - Weight 154 kg (339 lb 8.1 oz) 01/26/2013 9:37 AM CDT Height 170 cm (5' 6.93) 01/26/2013 9:37 AM CDT Body Mass Index 53.29 01/26/2013 9:37 AM CDT documented in this encounter Medications [...] encounter Progress Notes David Dsouza M.D. - 01/26/2013 9:13 AM CDT [id number] CHIEF COMPLAINT/REASON FOR VISIT Diabetic check. HISTORY OF PRESENT ILLNESS This 42-year-old male patient is in for diabetes check. He had an A1c done today which was 8.6, needs better control with his diabetes would like that under 8. He currently takes metformin 1000 mg twice daily, glimepiride 4 mg daily, could increase that to 5 and then 6 mg a day as needed or we could add Januvia 100 mg daily to his treatment. Patient will be contacted and recommendations of doing one or the other explained. He otherwise is doing well with his other current medical problems and is notdue for followup of that until later on in the year. He also has some rash on his right wrist over the distal ulna and on both elbows suggestive of psoriasis and will try him on triamcinolone cream 0.1% 3 times a day and recheck in a month and consider Lidex cream or gel if problem persists or possible dermatology consultation. Patient also has diarrhea and constipation when he eats eggs. He is wondering whether it is reaction with the metformin, told him we could cut back metformin to 500 mg twice a day for a week and see if it makes a difference and he will decide what he wants to do, just stay away from eggs or see if there is some issues with the metformin. EMR record reviewed and updated. SYSTEMS REVIEW 1. Respiratory: No cough or shortness of breath. 2. Cardiovascular: No palpitation of the heart, no chest pain. 3. GI: Diarrhea and constipation. 4. : No dysuria, no hematuria. 5. Skin issues, possible psoriasis as mentioned above. All other systems reviewed and negative, except [...] no distention. EXTREMITIES: Legs: no edema. IMPRESSION/REPORT/PLAN For diabetes mellitus will get a blood sugar today that turned out to be 178 with the A1c of 8.6 which has a higher value than what he has had in the past. Was 8.5 in July, April 8.2 and March 20116.9. He will recheck in 1 month return sooner as needed. Psoriasis will be treated as above and bowel problems also as addressed above and follow up in 1 month. David Dsouza M.D./bel Electronically Signed By: DAVID DSOUZA MD On: 01/27/2013 08:28 AM Source: [facility] MHSDOLBEYNONRADSYS Document Id: [id number] documented in this encounter Nursing Notes Tayo Clark L.P.N. - 05/27/2013 10:45 AM CDT Diabetic call Document Contains Addenda Addendum by TAYO CLARK LPN on 07 June 2013 10:41 CDT Attempted to contact patient in regards to labs and office visit. Message was left to return my call. Modified by and Electronically Signed by: TAYO CLARK LPN On: 06/07/2013 10:41 AM Attempt made to contact patient in regards to being due for fasting diabeticlabs and office visit with . Message left to return my call. Electronically Signed By: TAYO CLARK LPN On: 05/27/2013 10:46 AM Source: [employer] Document Id: [id number] Tayo Clark L.P.John - 04/16/2013 10:34 AM CDT Diabetic call Document Contains Addenda Addendum by DEBO TIM LPN on 04 May 2013 9:40 CDT Message left with family member to have Cali return our call in regards to fasting diabetic labs/office visit with Dr. Dsouza. Modified by and Electronically Signed by: DEBO TIM LPN On: 05/04/2013 09:40 AM Attempted to contact patient in regards to being due for fasting diabetic labs and office visit with . Message left to return my call. Electronically Signed By: TAYO CLARK LPN On: 04/16/2013 10:35 AM Source: [employer] Document Id: [id number] documented in this encounter Miscellaneous Notes Miscellaneous - David Dsouza M.D. - 01/26/2013 11:21 AM CDT Results Notification From: DAVID DSOUZA MD To: DAVID DSOUZA MD; Sent: 01/26/2013 11:21:42 CDT ! Show up: 01/26/2013 16:21:42 [facility] Subject: Results Notification Actions: Notify patient of results Reminder Comments: fasting sugar elevated Results: Date Result Name Ind Value Ref Range 01/26/2013 10:29 Glucose Fasting (H) 178 mg/dL (70 - 99) Source: [employer] Document Id: [id number] Electronically signed by Conversion, [employer] Electron Beam Machine Welder Setter [id number] at 02/12/2017 6:52 AM CDT Miscellaneous - David Dsouza M.D. - 01/26/2013 11:11 AM CDT Results Notification From: DAVID DSOUZA MD To: DAVID DSOUZA MD; Sent: 01/26/2013 11:11:21 CDT ! Show up: 01/26/2013 16:11:21 [facility] Subject: Results Notification Actions: Notify patient of results Reminder Comments: about the same. Could increase Amaryl or add Januvia. Results: Date Result Name Ind Value Ref Range 01/26/2013 10:29 Hgb A1c (H) 8.6 % (4.0 - 6.0) Source: [employer] Document Id: [id number] Electronically signed by Conversion, [employer] Electron Beam Machine Welder Setter [id number] at 02/12/2017 6:52 AM CDT Charleycellaneous - David Dsouza M.D. - 01/26/2013 10:27 AM CDT Ambulatory Patient Summary [address] [address] Visit Information Name: CALI MURPHY [facility] Number: [id number] Current Date: 01/26/2013 10:27:14 Physicians Attending Provider: DAVID DSOUZA MD Primary Care Provider: DAVID DSOUZA MD Your Medications Here is a list of your medications. It is important to take your medications as directed. Use a pillbox or chart to help remind you to take your medications. Please let your doctor or nurse know if you have problems taking your medications. Medication/Strength Dose Route Frequency Indications/Special Instructions/Comments triamcinolone topical (triamcinolone 0.1% topical cream) 1 kahlil Topical three times a day valsartan (Diovan 80 mg oral tablet) 80 mg Oral once a day metformin (metformin 500 mg oral tablet, extended release) 1,000 mg Oral two times a day glimepiride (glimepiride 4 mg oral tablet) 4 mg Oral once a day with breakfast ciclopirox topical (ciclopirox 0.77% topical cream) 1 kahlil Topical two times a day omeprazole-sodium bicarbonate (Zegerid OTC) [...] uncontrolled (also use V58.67 if pt has puller out (current insulin use) [id number]/23/2012 Psoriasis Active 01/26/2013 Your Upcoming Appointments Date Time Location Reason Provider No Appointments found Your Goals/Additional instructions: Source: [facility] POWERCHART Document Id: [id number] Miscellaneous - David Dsouza M.D. - 01/26/2013 10:27 AM CDT Ambulatory Depart Summary [address] [address] Visit Information Name: CALI MURPHY [facility] Number: [id number] Visit Date: 01/26/2013 10:27:13 Attending Provider: DAVID DSOUZA MD Primary Care [...] medications. Medication/Strength Dose Route Frequency Indications/Special Instructions/Comments triamcinolone topical (triamcinolone 0.1% topical cream) 1 kahlil Topical three times a day valsartan (Diovan 80 mg oral tablet) 80 mg Oral once a day metformin (metformin 500 mg oral tablet, extended release) 1,000 mg Oral two times a day glimepiride (glimepiride 4 mg oral tablet) 4 mg Oral once a day with breakfast ciclopirox topical (ciclopirox 0.77% topical cream) 1 kahlil Topical two times a day omeprazole-sodium bicarbonate (Zegerid OTC) [...] your provider for clarification. Additional Information: Source: [facility] POWERCHART Document Id: [id number] Miscellaneous - Conversion, Historical Provider Ser - 01/26/2013 9:37 AM CDT Adult Tier Over Intake/History Adult Tier Over Intake/History Entered On: 01/26/2013 9:40 CDT Performed On: 01/26/2013 9:37 CDT by TROY MARY Chief Complaint : Dibetic check Temperature Core : 36.9 DegC(Converted to: 98.4 DegF) Peripheral Pulse Rate : 76 /min Respiratory Rate : 18 /min Systolic Blood Pressure : 126 mmHg Diastolic Blood Pressure : 78 mmHg NIBP Mean : 94 mmHg BP Location : Right lower extremity Blood Pressure Cuff Size : Regular Height : 170 cm(Converted to: 5 ft 7 inch(es), 66.93 inch(es)) Actual Weight : 154 kg(Converted to: 339 lb 8 oz) Dosing Weight Clinic : 154 kg Clinic BSA : 2.7 Body Mass Index : 53.29 kg/m2 TROY MARY 01/26/2013 9:37 CDT General Info Languages : Bermudian TROY MARY 01/26/2013 9:37 CDT Subjective Pain Symptoms : No TROY MARY 01/26/2013 9:37 CDT Dependent Habits Tobacco Use/Currently Using : Yes Tobacco Use/Advised to Quit : Yes Exposure to Tobacco Smoke : Patient smokes Smoking Status : Current some day smoker TROY MARY 01/26/2013 9:37 CDT Tobacco Use Grid Type : Cigars TROY MARY 01/26/2013 9:37 CDT Caffeine Use Grid Caffeine Use : Current Type : Chocolate, Coffee, Soft drinks, Tea Frequency : Daily TROY MARY 01/26/2013 9:37 CDT Recreational Drug Use Grid Drug Use : None TROY MARY 01/26/2013 9:37 CDT Source: [employer] Document Id: [id number] CDT!36 documented in this encounter Plan of Treatment Upcoming Encounters Date Type Specialty Care Team Description 06/26/2022 Appointment Neurology Preet Landeros M.D . [address] [place] [phone] Bria Suh APRN, C.N.P., M.S.N. [address] [place] [phone] 07/25/2022 Appointment Radiology Preet Landeros M.D . [address] [place] [phone] (Wo rk) documented as of this encounter Procedures Procedure Name Priority Date/Time Associated Comments Diagnosis HEMOGLOBIN A1C, B Routine 01/26/2013 10:29 AM Res ults for this CDT procedure are i n the results section. GLUCOSE, FASTING, Routine 01/26/2013 10:29 AM Res ults for this S/P CDT procedure are i n the results section. documented in this encounter Results (ABNORMAL) Hemoglobin A1c (01/26/2013 10:29 AM CDT) P athologist Signature Hemoglobin A1c, 8.6 (H) 4.0 - 6.0 POWERCHART B Specimen (Source) Anatomical Collection Method Collection Time Re ceived Time Location / / Volume Laterality Blood 01/26/2013 10:29 AM CDT David Dsouza M.D. LAB BLOOD ADD-ON Performing Organization Address City/State/ZIP Code Phon e Number POWERCHART (ABNORMAL) Glucose, Fasting (01/26/2013 10:29 AM CDT) P athologist Signature Glucose, 178 (H) 70 - 99 POWERCHART Fasting, S MGDL Specimen (Source) Anatomical Collection Method Collection Time Re ceived Time Location / / Volume Laterality Blood 01/26/2013 10:29 AM CDT David Dsouza M.D. LAB BLOOD NON ADD-ON Performing Organization Address City/State/ZIP Code Phon e Number POWERCHART documented in this encounter Visit Diagnoses Not on filedocumented in this encounter
--- OUTSIDE RECORDS SUMMARY | 2022-06-23 22:47 | XMS_ITS | Encounter Summary ---
:1970 Author Organization [facility] Address [address] [place] [address] Care Team Providers Name Role Phone Unavailable Primary Care Provider Unavailable Encounter Details Date Type Department Care Team Description 04/30/2011 Hospital Encounter HX [facility] SURGEON Obi [...] encounter Progress Notes Uli Philip M.D. - 04/30/2011 12:00 AM CDT [id number] CHIEF COMPLAINT/REASON FOR VISIT Follow up HISTORY OF PRESENT ILLNESS Mr. Murphy is here in follow up. He has a large incisional ventral hernia on the left upper quadrant of his abdomen. I assume this is related to his previous midline incision for a perforated appendicitis, although the midline incisional area does not seem to be bulging at all. The patient has had the ventral incisional hernia for about 4-5 months, at least that is how long it has been bothering him. He does have pain in the area from time to time. He does some lifting at work. His weight was 344 pounds on his last visit. Today, he has lost about 10 pounds from that point, I would say he is about 335 pounds now. He has been trying to get his weight down. CURRENT MEDICATIONS 1. Glipizide 2. Metformin PAST MEDICAL/SURGICAL HISTORY 1. Diabetes. 2. He had the appendectomy for a perforated appendix at age 14, surgery was done on 10/30/84. 3. He has the morbid obesity problem. PHYSICAL EXAM ABDOMEN: He has the incarcerated hernia in the left upper quadrant of his abdomen. It is not reducible, although he can reduce it partially, he cannot completely reduce this hernia. I imagine that it is incarcerated with fat. IMPRESSION/REPORT/PLAN The patient would like to have the hernia repaired and of course, he presents with a dilemma. It would be nice to operate on him when he is thin, but he is having pain in the hernia area now, so I think we are forced to consider doing something sooner rather than later. He has several things going on including a wedding and would like to have the surgery done in mid-May. I would like him to continue to get his weight down as best as he can. He has lost approximately ten pounds and I would like to see him continue to lose some weight. I think if he can continue to lose weight after the surgery, it will greatly help to prevent recurrence. Will plan to use a mesh and probably place it intra-abdominally. I would have to take some adhesions down in order to do that. We also discussed the surgery with him today, the small risk of infection and bleeding, that we would use a mesh and that there is a risk of recurrence. He will be referred to Dr. Villa for a pre-op. RRB/sks Signed Uli Philip M.D. 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 Intake/History Entered On: 04/30/2011 15:05 CDT Performed On: 04/30/2011 15:02 CDT by PATRICK IBANEZ Intake Chief Complaint: hernia consult Temperature Core: 36.8C(Converted to: 98.2DegF) Peripheral Pulse Rate: 80/min Systolic Blood Pressure: 130mmHg Diastolic Blood Pressure: 72mmHg NIBP Mean: 91mmHg BP Location: Right upper extremity Actual Weight: 153.300kg(Converted to: 337lb 15oz) Weight Source: Standing scale Dosing Weight Clinic: 153.30kg PATRICK IBANEZ 04/30/2011 15:02 CDT Subjective Pain Symptoms: No PATRICK BIANEZ 04/30/2011 15:02 CDT Dependent Habits Tobacco Use/Currently Using: Yes PATRICK IBANEZ 04/30/2011 15:02 CDT Tobacco Use Grid Type: Cigars Last Use: 04/28/2011 Comments (Comment: Cigar [PATRICK IBANEZ 04/30/2011 15:02 CDT] ) PATRICK IBANEZ 04/30/2011 15:02 CDT Caffeine Use Grid Caffeine Use: Current Type: Tea Frequency: Daily PATRICK IBANEZ 04/30/2011 15:02 CDT Recreational Drug Use Grid Drug Use: None PATRICK IBANEZ 04/30/2011 15:02 CDT Allergy Allergies (Active) NKA Estimated Onset Date: Unspecified ; Created By: ELIZABETH BAEZ; Reaction Status: Active ; Category: Drug ; Substance: NKA ; Type: Allergy ; Updated By: ELIZABETH BAEZ; Reviewed Date: 04/30/2011 15:02 CDT [facility] Document Id: [id number] CDT!28 documented in this encounter Plan of Treatment Upcoming Encounters Date Type Specialty Care Team Description 06/26/2022 Appointment Neurology Preet Landeros M.D . [address] [place] [phone] Bria Suh APRN, C.N.P., M.S.N. [address] [place] [phone] 07/25/2022 Appointment Radiology Preet Landeros M.D . [address] [place] [phone] (Wo rk) documented as of this encounter Visit Diagnoses Not on filedocumented in this encounter
--- OUTSIDE RECORDS SUMMARY | 2022-06-23 22:47 | XMS_ITS | Encounter Summary ---
:1970 Author Organization [facility] Address [address] [place] [address] Care Team Providers Name Role Phone Unavailable Primary Care Provider Unavailable Encounter Details Date Type Department Care Team Description 06/15/2013 Hospital Encounter HX [facility] LAB David [...] Notes Miscellaneous - David Dsouza M.D. - 06/15/2013 12:12 PM CDT Schedule Follow-Up Visit 15 June 2013 CALI MURPHY [id number] [facility] [id number] Dear CALI MURPHY, Thank you for choosing [facility] for your health care needs. You recently had laboratory work performed to assess your overall health. This letter contains the results of your testing and standard ranges to help explain the results. I would recommend follow-up as we previously discussed. If you have questions prior to our appointment, please contact our office. Result Name Current Result Previous Result Normal Range U Albumin (mg/dL) 19 06/15/2013 U Creatinine (mg/dL) 92 06/15/2013 U Alb/Creatinine Ratio (mg/gm) (H) 21 06/15/2013 0 - 17 Cholesterol (mg/dL) 139 06/15/2013 0 - 200 Trig (mg/dL) (H) 252 06/15/2013 0 - 150 HDL (mg/dL) (L) 36.0 06/15/2013 40.0 - 60.0 LDL Calculated (mg/dL) 53 06/15/2013 0 - 100 Hgb A1c (%) (H) 8.6 06/15/2013 (H) 8.6 01/26/2013 (H) 8.5 08/11/2012 4.0 - 6.0 Sincerely, DAVID DSOUZA [address] [place], [place] [phone] Electronic Signature Electronically Signed By: DAVID DSOUZA MD On: 15 June 2013 This document has images extracted. Source: [facility] POWERCHART Document Id: [id number] Electronically signed by Conversion, [facility] Senior Group Manager [id number] at 02/12/2017 8:46 PM CDT documented in this encounter Plan of Treatment Upcoming Encounters Date Type Specialty Care Team Description 06/26/2022 Appointment Neurology Preet Landeros M.D . [address] [place] [phone] Bria Suh APRN, C.N.P., M.S.N. [address] [place] [phone] 07/25/2022 Appointment Radiology Preet Landeros M.D . [address] [place] [phone] (Wo rk) documented as of this encounter Procedures Procedure Name Priority Date/Time Associated Diagnosis Comme nts LIPID PANEL, S Routine 06/15/2013 8:47 AM Results for this CDT procedure are i n the results section. HEMOGLOBIN A1C, B Routine 06/15/2013 8:47 AM Resu lts for this CDT procedure are i n the results section. documented in this encounter Results (ABNORMAL) Lipid Panel (06/15/2013 8:47 AM CDT) [facility] gist Method Time Signature Cholesterol, 139 0 - 200 POWERCHART Total MGDL HX HDL 36.0 (L) 40.0 - POWERCHART 60.0 MGDL Triglycerides 252 (H) 0 - 150 POWERCHART MGDL Calculated LDL 53 0 - 100 POWERCHART MGDL Specimen (Source) Anatomical Collection Method Collection Time Re ceived Time Location / / Volume Laterality Blood 06/15/2013 8:47 AM CDT David Dsouza M.D. LAB BLOOD ADD-ON Performing Organization Address City/State/ZIP Code Phon e Number POWERCHART (ABNORMAL) Hemoglobin A1c (06/15/2013 8:47 AM CDT) P athologist Signature Hemoglobin A1c, 8.6 (H) 4.0 - 6.0 POWERCHART B Specimen (Source) Anatomical Collection Method Collection Time Re ceived Time Location / / Volume Laterality Blood 06/15/2013 8:47 AM CDT David Dsouza M.D. LAB BLOOD ADD-ON Performing Organization Address City/State/ZIP Code Phon e Number POWERCHART documented in this encounter Visit Diagnoses Not on filedocumented in this encounter
--- OUTSIDE RECORDS SUMMARY | 2022-06-23 22:47 | XMS_ITS | Encounter Summary ---
:1970 Author Organization [facility] Address [address] [place] [address] Care Team Providers Name Role Phone Unavailable Primary Care Provider Unavailable Encounter Details Date Type Department Care Team Description 07/21/2013 Hospital Encounter HX [facility] FB NURSE Jenni Garcia M.D. Social History Tobacco Use Types Packs/Day [...] Sign Reading Time Taken Comments Blood Pressure 120/78 07/21/2013 10:27 AM READING PROFESSOR Pulse 76 07/21/2013 10:27 AM READING PROFESSOR Temperature - - Respiratory Rate 20 07/21/2013 10:27 AM READING PROFESSOR Oxygen Saturation - - Inhaled Oxygen Concentration [...] of this encounter Miscellaneous Notes Miscellaneous - Sophia Isidro, L.P.N. - 07/21/2013 10:27 AM CST Ambulatory Vitals Height Weight Ambulatory Vitals Height Weight Entered On: 07/21/2013 10:27 READING PROFESSOR Performed On: 07/21/2013 10:27 READING PROFESSOR by SOPHIA ISIDRO Vitals/Ht/Wt Peripheral Pulse Rate : 76 /min Respiratory Rate : 20 /min Systolic Blood Pressure : 120 mmHg Diastolic Blood Pressure : 78 mmHg NIBP Mean : 92 mmHg BP Location : Right upper extremity Blood Pressure Cuff Size : Large SOPHIA ISIDRO - 07/21/2013 10:27 READING PROFESSOR [facility] Document Id: [id number] READING PROFESSOR!9 ING PROFESSOR Miscellaneous - Sophia Isidro L.P.N. - 07/21/2013 10:24 AM CST Ambulatory Vitals Height Weight Ambulatory Vitals Height Weight Entered On: 07/21/2013 10:24 READING PROFESSOR Performed On: 07/21/2013 10:24 READING PROFESSOR by SOPHIA ISIDRO Vitals/Ht/Wt Peripheral Pulse Rate : 76 /min Respiratory Rate : 16 /min Systolic Blood Pressure : 120 mmHg Diastolic Blood Pressure : 78 mmHg NIBP Mean : 92 mmHg BP Location : Left upper extremity Blood Pressure Cuff Size : Large SOPHIA ISIDRO - 07/21/2013 10:24 READING PROFESSOR [facility] Document Id: [id number] READING PROFESSOR!9 ING PROFESSOR documented in this encounter Plan of Treatment Upcoming Encounters Date Type Specialty Care Team Description 06/26/2022 Appointment Neurology Preet Landeros M.D . [address] [place] [phone] Bria Suh APRN, C.N.P., M.S.N. [address] [place] [phone] 07/25/2022 Appointment Radiology Preet Landeros M.D . [address] [place] [phone] (Wo rk) documented as of this encounter Visit Diagnoses Not on filedocumented in this encounter
--- OUTSIDE RECORDS SUMMARY | 2022-06-23 22:48 | XMS_ITS | Clinical Summary ---
:1970 Author Organization [facility] [place] [address] Care Team Providers Name Role Phone Aaron Miranda MD Primary Care Provider Allergies Active Allergy Reactions Severity Noted Date Comments Lisinopril Cough Low 09/27/2013 Metformin GI Upset Low 09/12/2020 Medications Medication Sig Dispensed Refills Start End Status Date Date aspirin enteric Take 1 tablet 0 10/14/19 Active coated 81 mg tablet by mouth once 13 daily with a meal. ketoconazole 2% Twice a week 1 Bottle 0 11/21/19 A ctive shampoo (NIZORAL) 2 for two to four 21 % weeks shampooIndications: Seborrheic dermatitis clotrimazole Apply topically 45 g 1 12/16/19 A ctive (LOTRIMIN) 1 % to affected 21 creamIndications: area(s) 2 times Skin yeast infection daily. 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 : Chronic sinusitis, unspecified location busPIRone (BUSPAR) Take 1 Tablet 180 Tablet 1 08/15/20 Active 10 mg (10 mg) by 21 tabletIndications: mouth 2 times DESTINY (generalized daily. anxiety disorder) glucagon (Baqsimi) 3 Inhale 1 Procious 0 Active mg/actuation spry into affected nostril(s) each time if needed (For low blood glucose). hydrOXYzine HCL TAKE 1 30 Tablet 0 10/25/19 Acti ve (ATARAX) 25 mg TABLET(25 MG) 22 tabletIndications: BY MOUTH EVERY Anxiety 8 HOURS NEEDED FOR ANXIETY naproxen (NAPROSYN) Take 1 Tablet 180 tablet. 2 10/25/19 Active 500 mg (500 mg) by 22 tabletIndications: mouth every 12 Sacral back pain hours if needed for Pain. ferrous sulfate, 65 Take 1 Tablet 90 Tablet 3 10/25/19 Active mg elemental, (325 mg) by 22 (FeroSuL) mouth once tabletIndications: daily with a Restless leg meal. syndrome clobetasol 0.05% Apply topically 50 mL 0 10/31/19 Active TOPICAL (TEMOVATE) to affected 22 0.05 % external area(s) 2 times solutionIndications: daily. Seborrheic dermatitis liraglutide Inject 1.8 mg 27 mL 3 12/07/19 Acti ve (VICTOZA) 0.6 mg/0.1 subcutaneous 22 mL (18 mg/3 mL) once daily. injectionIndications : Type 2 diabetes mellitus without complication, with long-term current use of insulin (HC) insulin glargine, Inject 27 units 25 mL 3 01/12/20 Active U-100, 100 unit/mL subcutaneous at 22 (3 mL) bedtime. penIndications: Type 2 diabetes mellitus without complication, with long-term current use of insulin (HC) valsartan (DIOVAN) TAKE 1 TABLET 90 Tablet 2 01/19/20 Active 80 mg BY MOUTH EVERY 22 tabletIndications: DAY HTN (hypertension) levocetirizine TAKE 1 TABLET(5 90 Tablet 2 02/08/20 Active (XYZAL) 5 mg tab MG) BY MOUTH 22 tabletIndications: EVERY DAY IN Seasonal allergies THE EVENING omeprazole TAKE 1 90 Capsule 2 02/08/20 Active (PRILOSEC) 40 mg CAPSULE(40 MG) 22 Delayed-Release BY MOUTH EVERY capsuleIndications: DAY BEFORE A Gastroesophageal MEAL reflux disease, unspecified whether esophagitis present pen needle, diabetic DIRECTED 200 Each 3 02/08/20 Active (BD Insulin Pen twice daily 22 Needle UF) 31 gauge x 01/28Indications: Type 2 diabetes mellitus without complication, with long-term current use of insulin (HC) nystatin powder Apply 1 Strip 0 Active (MYCOSTATIN) powder topically to affected area(s) 3 times daily if needed. hydrocortisone Apply topically 0 10/25/19 Active (CORTAID) 1 % to affected 22 topical solution area(s). NovoLOG Flexpen ADMINISTER 12 30 mL 5 03/20/20 Active U-100 Insulin 100 TO 16 UNITS 22 unit/mL (3 mL) UNDER THE SKIN penIndications: Type THREE TIMES 2 diabetes mellitus DAILY BEFORE without MEALS complication, with long-term current use of insulin (HC) atorvastatin Take 1 Tablet 90 Tablet 0 04/04/20 Act evert (LIPITOR) 40 mg (40 mg) by 22 tabletIndications: mouth at Hyperlipidemia, bedtime. unspecified hyperlipidemia type Dexcom G6 Use as 1 Each 3 05/04/20 Active Transmitter for directed.CHANGE 22 continuous blood EVERY 3 MONTHS glucose monitor (CGM)Indications: Type 2 diabetes mellitus without complication, with long-term current use of insulin (HC) Dexcom G6 Sensor for Use as 9 Each 3 05/04/20 Active continuous blood directed: 22 glucose monitor CHANGE EVERY 10 (CGM)Indications: DAYS Type 2 diabetes mellitus without complication, with long-term current use of insulin (HC) Jardiance 25 mg Take 1 Tablet 90 Tablet 3 05/30/20 Active tabletIndications: (25 mg) by 22 Type 2 diabetes mouth once mellitus without daily. complication, with long-term current use of insulin (HC) FLUoxetine (PROZAC) Take 3 Capsules 270 Capsule 3 05/30/20 Active 20 mg (60 mg) by 22 capsuleIndications: mouth every DESTINY (generalized morning. anxiety disorder), MDD (major depressive disorder), recurrent episode, mild (HC) verapamiL (VERELAN) TAKE 1 30 Capsule 0 06/10/20 Active 120 mg CAPSULE(120 MG) 22 Controlled-Release BY MOUTH EVERY capsuleIndications: MORNING Hemiplegic migraine without status migrainosus, not intractable SUMAtriptan Take 1 tablet 60 tablet 3 07/13/20 Disc ontinued (IMITREX) 50 mg by mouth 2 022 (*P atient tabletIndications: times daily if states no Migraine syndrome needed for l onger Migraine. Give takin g/Not on at minimum 2hrs send ing apart. Max facility list) Dose: 200mg per 24hrs. Jardiance 25 mg Take 25 mg by 90 Tablet 3 07/12/20 Discontinued tabletIndications: mouth once (Reorder Type 2 diabetes daily. (E-c ancel not mellitus without sen t)) complication, with long-term current use of insulin (HC) FLUoxetine (PROZAC) Take 1 Capsule 90 Capsule 1 08/15/2005/16 Discontinued 40 mg (40 mg) by (*Medicat ion capsuleIndications: mouth every adjustment) DESTINY (generalized morning. anxiety disorder), MDD (major depressive disorder), recurrent episode, mild (HC) verapamiL (VERELAN) TAKE 1 30 Capsule 0 03/20/20 Discontinued 120 mg CAPSULE(120 MG) Controlled-Release BY MOUTH EVERY capsuleIndications: MORNING Hemiplegic migraine without status migrainosus, not intractable Active Problems Problem Noted Date Aphasia 02/23/2022 Carpal tunnel syndrome 01/10/2022 Overview: Formatting of this note might be differe nt from the original. 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 Carcinoma of kidney 12/12/2015 Eczema 01/09/2015 Psoriasis 01/26/2013 Resolved Problems Problem Noted Date Resolved Date DIABETES 08/09/2002 11/23/2018 Encounters Date Type Specialty Care Team Description 06/06/2022 Refill Tanmay Valadez, DO Refill Requ est (Verapamil) 05/30/2022 Office Visit Aaron Miranda Diabete sInocencio MALAGON Immunization/In jection (COVID-19 vacci ne) 05/30/2022 Travel 05/01/2022 Refill Aaron Miranda, Refill Request (Dexcom MD Sensor & transm itter ) 04/10/2022 Hospital Encounter Mathieu Landon MD Burns, Kayla A, OT 04/10/2022 Travel 04/04/2022 Office Visit Aaron Miranda, Follow Up 04/03/2022 Hospital Encounter Mathieu Landon MD Burns, Kayla A, OT 04/03/2022 Travel 04/02/2022 Telephone Aaron Miranda Referra l MD 03/28/2022 Orders Only Aaron Miranda, <No sca ns attached> 03/27/2022 Hospital Encounter Mathieu Landon MD Burns, Kayla A, OT 03/27/2022 Travel from Last 3 Months Immunizations Name Administration Dates Next Due COVID-19 vaccine (Pfizer-BioNTech 05/30/2022 30mcg/0.3mL) 12YO+ BIVALENT BOOSTER PF, MDV COVID-19 vaccine (Pfizer-BioNTech 12/06/2021 30mcg/0.3mL) 12YO+ JOAQUIN-SUCROSE PF, MDV COVID-19 vaccine (Pfizer-BioNTech 07/12/2021, 12/26/2020, 30mcg/0.3mL) PF, MDV Hepatitis B (Adult) 03/08/2019, 11/23/2018 Hepatitis B, Unspecified 07/16/2015 Influenza A (H1N1), Inactivated 11/13/2009 Influenza A (H1N1), Inactivated (Age 0210/16/2009 >=3 Years) Influenza Virus, Unspecified 06/25/2018, 06/20/2017, 016, 07/05/2014, 06/16/2014, 07/21/2013, 06/17/2012, 06/26/2011, 06/29/2010, 07/03/2009, 06/16/2008, 08/28/2006, 07/04/2004 Influenza, High-dose Inactivated 07/16/2015 Influenza, IIV3 (Age >=3 years) 06/17/2012, 07/03/2009, 10/2007, 08/28/2006, 07/04/2004 Influenza, IIV4 05/30/2022, 07/12/2021, 06/08/2020, 06/10/2019, 06/25/2018, 06/20/2017, 10/26/2015 Influenza, Inactivated IIV3 (Age 65+ 06/25/2018 Years) Preserv Free Pneumococcal Poly,23-Valent 03/08/2019, 02/27/2003 (Pneumovax) Pneumococcal conj 13-Valent (Prevnar 12/22/2017 13) Td (Age >=7 Years) 11/15/2004 Tdap 06/09/2014 Family History Medical History Relation Name Comments Dementia Father Relation Name Status Comments Father Alive Mother Alive Social History Tobacco Use Types Packs/Day Years Used Date Former Smoker Cigars Smokeless Tobacco: Never Used Tobacco Cessation: Counseling Given: Yes Comments: occassional cigar Alcohol Use Standard Drinks/Week Comments Yes 0 (1 standard drink = 0.6 oz pure alcoho l) once every 2-3 months Alcohol Habits Answer Date Recorded How often do you have a drink containing alcohol? Monthly or less 11/23/2018 How many drinks containing alcohol do you have on 1 or 2 11/23/2018 a typical day when you are drinking? How often do you have six or more drinks on one Never 11/23/2018 occasion? Comment: once every 2-3 months 03/01/2021 Sex Assigned at Date Recorded Not on file COVID-19 Exposure Response Date Recorded In the last 10 days, have you been in contact with No / Unsu re 05/30/2022 10:06 AM CDT someone who was confirmed or suspected to have Coronavirus/COVID-19? Obstetrics History Last Filed Vital Signs Vital Sign Reading Time Taken Comments Blood Pressure 133/84 05/30/2022 10:13 AM CDT Pulse 77 05/30/2022 10:13 AM CDT Temperature 36.6 ??C (97.9 ??F) 02/24/2022 8:47 AM CDT Respiratory Rate 18 02/24/2022 8:47 AM CDT Oxygen Saturation 95% 05/30/2022 10:13 AM CDT Inhaled Oxygen Concentration - - Weight 142.5 kg (314 lb 1.6 oz) 05/30/2022 10:13 AM CDT Height 167.6 cm (5' 6) 02/23/2022 12:15 AM CDT Body Mass Index 50.7 02/23/2022 12:15 AM CDT Plan of Treatment Health Maintenance Due Date Last Done Comments Colonoscopy through age 75 2015 Zoster (shingles) series for age 0603/09/2020 50+ (1 of 2) BMI (ht and wt on same day) for 07/12/2022 07/12/2021, 11/13, age 18+ 09/13/2019, Additional history exists Depression screening for age 12+ 08/15/2022 08/15/2021, 10/2020, 05/15/2021, Additional history exists Tetanus booster 06/09/2024 06/09/2014, 11/15/2004 Lipids for age 45-75 02/23/2027 02/23/2022, 10/25/2021, 05/04/2020, Additional history exists Pneumococcal series for age 19-64 2035 03/08/2019, , (3 - PPSV23 or PCV20) 02/27/2003 Tdap Completed 06/09/2014 Hepatitis C screening for age Completed 01/22/2019 18-79 Hepatitis B series for Diabetes Completed 03/08/2019, 11/13, 07/16/2015 COVID-19 vaccine series Completed 05/30/2022, 12/06/2021, 07/12/2021, Additional history exists Influenza for age 50-64 Completed 05/30/2022, 07/12/2021, 06/08/2020, Additional history exists Results Not on filefrom Last 3 Months Insurance Payer Benefit Plan / Subscriber ID Effective Dates Phone Addre ss Type Group WC WORKERS COMP WC WORKERS -001 2012-Presen [address] [address] [facility] t [facility] [place] [id number] [address] [place] [id number] 2021-Present [address] [place] [address] [phone] JIM Loli N 7 (Work) [id number] Paul Murphy Workers Comp Self 1970 [phone] [id number] [address] Workman [address] (Home) [address] [place] [address] Advance Directives Latest Code Status on File Code Status Date Activated Date Inactivated Comments Full Code 02/23/2022 7:25 AM 02/24/2022 2:28 PM Code Status Discussion: Reviewed Preferences Full Code 02/23/2022 12:18 AM 02/23/2022 7:25 AM Code Status Discussion: Unable to Assess Preferences, Provid er to review later Full Code 10/05/2021 6:18 PM 10/06/2021 8:16 PM Code Status Discussion: Reviewed Preferences Care Teams Warp Tier Relationship Specialty Start Date End Date Aaron Miranda MD PCP - General Family Practice 01/04/19 [address] [facility] [place] [address]
--- OUTSIDE RECORDS SUMMARY | 2022-06-23 22:48 | XMS_ITS | Encounter Summary ---
:1970 Author Organization [facility] Address [address] [place] [address] Care Team Providers Name Role Phone Elsewhere, [...] Neurology Preet Landeros M.D . [address] [place] [phone] Bria Suh APRN, C.N.P., M.S.N. [address] [place] [phone] 07/25/2022 Appointment Radiology Preet Landeros M.D . [address] [place] [address] [phone] (Wo rk) documented as of this encounter Procedures Procedure Name Priority Date/Time Associated Comments Diagnosis OPHTHALMOLOGY IMAGE Routine 06/04/2022 2:05 PM Re sults for this EXAM CDT procedure are i n the results section. documented in this encounter Results Optical Coherence Tomography (OCT)-Ophthalmology Image Exam (06/04/2022 2:05 PM CDT) Specimen (Source) Anatomical Collection Method [...] documented as of this encounter Care Teams Digital Publishing Specialist Relationship Specialty Start Date End Date Elsewhere, Pcp PCP - General Family Medicine 08/11/19 documented as of this encounter
--- OUTSIDE RECORDS SUMMARY | 2022-06-23 22:48 | XMS_ITS | Encounter Summary ---
:1970 Author Organization [facility] Address [address] [place] [address] Care Team Providers Name Role Phone Unavailable Primary Care Provider Unavailable Encounter Details Date Type Department Care Team Description 10/24/2020 Travel Social History Tobacco Use Types Packs/Day Years Used Date Smoking Tobacco: Never Assessed Sex Assigned at Date Recorded Not on file COVID-19 Exposure Response Date Recorded In the last month, have you been in contact with No / Unsure 10/24/2020 9:03 PM INTERNAL INVESTIGATOR someone who was confirmed or suspected to have Coronavirus / COVID-19? documented as of this encounter Plan of Treatment Not on filedocumented as of this encounter Visit Diagnoses Not on filedocumented in this encounter
--- OUTSIDE RECORDS SUMMARY | 2022-06-23 22:48 | XMS_ITS | Encounter Summary ---
:1970 Author Organization [place] Address [facility] [place] [address] Care Team Providers Name Role Phone [facility] Primary Care Provider [phone] Reason for Visit Reason Comments Toe Pain Jaw Pain Encounter Details Date Type Department Care Team Description 10/24/2020 - Emergency [facility] Lupillo Pina nail; 10/25/2020 [facility] Emergency MD [facility] Pain, dental; Dept [facility] Pain of right thigh [address] [place], [place] [address] [place] [phone] [place] [address] (Wo rk) Social History Tobacco Use Types Packs/Day Years Used Date Smoking Tobacco: Never Assessed Sex Assigned at Date Recorded Not on file COVID-19 Exposure Response Date Recorded In the last month, have you been in contact with No / Unsure 10/24/2020 9:03 PM BELT CUTTER someone who was confirmed or suspected to have Coronavirus / COVID-19? documented as of this encounter Last Filed Vital Signs Vital Sign Reading Time Taken Comments Blood Pressure 162/112 10/24/2020 9:04 PM BELT CUTTER Pulse 69 10/24/2020 9:04 PM BELT CUTTER Temperature 36.8 ??C (98.3 ??F) 10/24/2020 9:04 PM BELT CUTTER Respiratory Rate 20 10/24/2020 9:04 PM BELT CUTTER Oxygen Saturation 95% 10/25/2020 12:55 AM BELT CUTTER Inhaled Oxygen Concentration - - Weight 145.2 kg (320 lb) 10/24/2020 9:04 PM BELT CUTTER Height 167.6 cm (5' 6) 10/24/2020 9:04 PM BELT CUTTER Body Mass Index 51.65 10/24/2020 9:04 PM BELT CUTTER documented in this encounter Discharge Instructions Discharge InstructionsGoLupillo miranda MD - 10/25/2020 12:36 AM BELT CUTTER We suspect your dental facial pain is secondary to dental problems. Please see your dentist and start Augmentin. We soak your toe in warm water and Epsom salt or warm water and distilled vinegar. Return with fever or worsening swelling of the face. We have checked your thigh for a blood clot using a blood test and this was negative if you see redness or more swelling of the thigh return to the emergency room for reassessment. CUTTER AttachmentsThe following attachments cannot be sent through Care Everywhere. Toenail, Ingrown (Excised) (Micronesian)Dental Pain (Micronesian)documented in this encounter Medications at Time of Discharge Medication Sig Dispensed Refills Start Date End Date amoxicillin-clavulanate Take 1 tablet by 20 tablet 0 202011/04/2020 (AUGMENTIN) 875-125 MG mouth 2 times daily tablet for 10 days documented as of this encounter ED Notes Rose Marie Farooq RN - 10/24/2020 9:03 PM CST Pt also notes intermittent dizziness. CUTTER Rose Marie Farooq RN - 10/24/2020 8:59 PM CST Pt presents for evaluation of a right great toe infection. Pt thinks he has an ingrown toenail sincemidweek last week. Erythema and swelling to great toe. Was seen at urgent care and sent here for further evaluation. Hx of DM. Also notes jaw pain and underneath the left eye that has been intermittentx 3 days. Right sided groin pain since last week. BG reading of 120 a little bit ago. Pt notes some slight shortness of breath. CUTTER Lupillo Pina MD - 10/24/2020 8:57 PM CST History Chief Complaint: Toe Pain and Jaw Pain The history is provided by the patient. Paul Murphy is a 50 year old male with history of diabetes who presents with toe and jaw pain. The patient reports he has had right big toe pain for about the past 2 weeks and he thinks the toe maybe infected. There has been some drainage from the toe. Additionally he has groin pain, but denies trauma, fall, or other injury. He also has pain in his left upper jaw that has also been present for about 1-2 weeks. He has a history of diabetes and report his blood sugars have been normal. Review of Systems HENT: Positive for dental problem (left upper jaw pain). Genitourinary: Positive for testicular pain. Musculoskeletal: Positive for myalgias. All other systems reviewed and are negative. Allergies: Lisinopril Medications: The patient does not take any daily medications. Past Medical History: Diabetes Social History: The patient presents alone. Physical Exam Patient Vitals for the past 24 hrs: BP Temp Temp src Pulse Resp SpO2 Height Weight 10/24/20 2104 (!) 162/112 98.3 ??F (36.8 ??C) Temporal 69 20 97 % 1.676 m (5' 6) 145.2 kg (320 lb) Physical Exam Constitutional: Appearance: He is obese. HENT: Head: Normocephalic. Right Ear: Tympanic membrane normal. Left Ear: Tympanic membrane normal. Nose: Nose normal. Mouth/Throat: Comments: There is very poor dentition with multiple decayed teeth. Patient is tender with palpation over the buccal gingival flow fold of the left upper maxilla. There is tenderness over the left maxilla without signs of erythema or swelling. Eyes: Pupils: Pupils are equal, round, and reactive to light. Cardiovascular: Rate and Rhythm: Normal rate. Pulmonary: Effort: Pulmonary effort is normal. Abdominal: General: Abdomen is flat. Musculoskeletal: Comments: Right first toe: There is some induration and an ingrown toenail in the first toe on the lateral aspect. There is some mild erythema without clear fluctuance. Tenderness with palpation. Skin: General: Skin is warm. Capillary Refill: Capillary refill takes less than 2 seconds. Neurological: General: No focal deficit present. Mental Status: He is alert. Emergency Department Course ECG: ECG (21:17:18): Indication: Screening for cardiovascular disease. Rate 56 bpm. MT interval 190. QRS duration 88. QT/QTc 400/386. P-R-T axes 30 -28 60. Interpretation: Sinus bradycardia. Septal infarct, age undetermined. Abnormal ECG. Agree with computer interpretation. Interpreted at [address] Pina. Laboratory: CBC: WBC 13.5 (H), HGB 15.5, PLT 281 BMP: Glucose 162 (H), o/w WNL (Creatinine: 0.87) 2218 Troponin I: <0.015 D-dimer: 0.4 UA: Clear light yellow urine, Glucose: >1000, otherwise WNL Procedures Partial Nail Excision The right big toe was prepped with betadine. A digital block was performed using 10mL of lidocaine 2%. A hemostat was advanced under the nail and the margin of the nail was rotated medially. The nail was then excised with a mosquito scissors and removed. The patient tolerated the procedure without incident. Emergency Department Course: Reviewed: I reviewed nursing notes, vitals and past medical history Assessments: 2309 I obtained history and examined the patient as noted above. 2320 A partial nail excition was performed as outlined in the procedure note above. The patient tolerated well and there were no complications. Interventions: 2333 Unasyn 3 g vial to attach to NS 100 mL bag IV Disposition: The patient was discharged to home. Impression & Plan Medical Decision Making: Patient presents with right first toe pain left maxillary pain and right thigh pain. Right leg is not concerning for infection there is no lymphadenopathy or erythema. D-dimer was sent and was negativefor screening for DVT. Patient's facial pain is likely secondary to odontogenic source. Do not feel CT scan or further imaging is required IV Unasyn and antibiotics were given for this. Patient's toe is concerning for ingrown toe cannot rule out fluctuance recommended toe block and incision and removal of the lateral quarter of the nail. This was performed by me no fluctuance or purulence was drainedpatient tolerated procedure well without difficulty and was discharged in stable condition. Covid-19 Paul Murphy was evaluated during a global COVID-19 pandemic, which necessitated consideration that the patient might be at risk for infection with the SARS-CoV-2 virus that causes COVID-19. Applicable protocols for evaluation were followed during the patient's care. Diagnosis: ICD-10-CM 1. Ingrown nail L60.0 2. Pain, dental K08.89 3. Pain of right thigh M79.651 Discharge Medications: New Prescriptions AMOXICILLIN-CLAVULANATE (AUGMENTIN) 875-125 MG TABLET Take 1 tablet by mouth 2 times daily for 10 days Scribe Disclosure: I, Ivana Vance, am serving as a scribe at 11:19 PM on 10/24/2020 to document services personally performed by Lupillo Pina MD based on my observations and the provider's statements to me. Lupillo Pina MD 10/25/20 0306 CUTTER documented in this encounter Plan of Treatment Not on filedocumented as of this encounter Procedures Procedure Name Priority Date/Time Associated Comments Diagnosis ROUTINE UA WITH STAT 10/24/2020 10:20 Results for this MICROSCOPIC PM BELT CUTTER procedure are i n the results section. CBC WITH PLATELETS & STAT 10/24/2020 10:18 Res ults for this DIFFERENTIAL PM BELT CUTTER procedure are i n the results section. TROPONIN I STAT 10/24/2020 10:18 Results for this PM BELT CUTTER procedure are i n the results section. D DIMER QUANTITATIVE Routine 10/24/2020 10:18 Res ults for this PM BELT CUTTER procedure are i n the results section. BASIC METABOLIC PANEL STAT 10/24/2020 10:18 Re sults for this PM BELT CUTTER procedure are i n the results section. EKG 12-LEAD, TRACING STAT 10/24/2020 9:17 PM R esults for this ONLY BELT CUTTER procedure are i n the results section. documented in this encounter Results (ABNORMAL) Routine UA with microscopic (10/24/2020 10:20 PM BELT CUTTER) [facility] Method Time Signature Color Urine Light Yellow 10/24/2020 [facility] 10:50 PM [facility] Appearance Urine Clear 10/24/2020 [facility] 10:50 PM [facility] Glucose Urine >1000 (A) NEG^Negat 10/24/2020 [facility] evert mg/dL 10:50 PM [facility] Bilirubin Urine Negative NEG^Negat 10/24/2020 [facility] evert 10:50 PM [facility] Ketones Urine Negative NEG^Negat 10/24/2020 [facility] evert mg/dL 10:50 PM [facility] Specific [place] 1.027 1.003 - 10/24/2020 [facility] Urine 1.035 10:50 PM [facility] Blood Urine Negative NEG^Negat 10/24/2020 [facility] evert 10:50 PM [facility] pH Urine 6.0 5.0 - 7.0 10/24/2020 [facility] pH 10:50 PM [facility] Protein Albumin Negative NEG^Negat 10/24/2020 [place] Urine evert mg/dL 10:50 PM [facility] Urobilinogen Normal 0.0 - 2.0 10/24/2020 [facility] mg/dL mg/dL 10:50 PM [facility] Nitrite Urine Negative NEG^Negat 10/24/2020 [facility] evert 10:50 PM [facility] Leukocyte Negative NEG^Negat 10/24/2020 [facility] Esterase Urine evert 10:50 PM [facility] Source Midstream 10/24/2020 [facility] Urine 10:21 PM [facility] WBC Urine <1 0 - 5 10/24/2020 [facility] /HPF 10:50 PM [facility] RBC Urine <1 0 - 2 10/24/2020 [facility] /HPF 10:50 PM [facility] Specimen (Source) Anatomical Collection Method Collection Time Re ceived Time Location / / Volume Laterality Examination of 10/24/2020 10:20 midstream urine PM BELT CUTTER 10:28 PM [facility] specimen (procedure) Lupillo Pina MD LAB - URINE ORDERABLES Performing Organization Address City/State/ZIP Code Phon e Number M [facility] [address] [place], [place] [address] [facility] [address] [address] [phone] D dimer quantitative (10/24/2020 10:18 PM BELT CUTTER) athologist Signature D Dimer 0.4 0.0 - 0.50 10/24/[address] [facility] ug/ml FEU 11:41 PM [facility] Comment: This D-dimer assay is intended for use i n conjunction with a clinical pretest probability assessment model to exclude pulmonary embolism (PE) and deep venous thrombosis (DVT) in outpatients s uspected of PE or DVT. The cut-off value is 0.5 ug/mL FEU. Specimen Anatomical Collection Method Collection Time Receive d Time (Source) Location / / Volume Laterality 10/24/2020 10:18 10/24/2020 PM BELT CUTTER 10:27 PM BELT CUTTER Domingo Milton MD LAB - BLOOD ORDERABLES Performing Organization Address [facility]/ZIP [facility] e Number [facility] [address], [place] [address] [address], [facility] [phone] Troponin I (now) (10/24/2020 10:18 PM BELT CUTTER) athologist Signature Troponin I ES <0.015 0.000 - 10/24/2020 [facility] 0.045 ug/L 10:[address] [facility] Comment: The 99th percentile for upper reference range is 0.045 ug/L. ??Troponin values in the range of 0.045 - 0.120 ug/L may b e associated with risks of adverse clinical events. Specimen Anatomical Collection Method Collection Time Receive d Time (Source) Location / / Volume Laterality Blood specimen 10/24/2020 10:18 (specimen) PM BELT CUTTER 10:27 PM BELT CUTTER Lupillo Pina MD LAB - BLOOD ORDERABLES Performing Organization Address [facility] Phon e Number [facility] [address], [place] [address] [facility] [address] [address], [facility] [phone] (ABNORMAL) Basic metabolic panel (10/24/2020 10:18 PM BELT CUTTER) athologist Signature Sodium 139 133 - 144 10/24/2020 [facility] mmol/L 10:[address] [facility] Potassium 3.9 3.4 - 5.3 10/24/2020 [facility] mmol/L 10:[address] [facility] Chloride 105 94 - 109 10/24/2020 [facility] mmol/L 10:[address] [facility] Carbon Dioxide 29 20 - 32 10/24/2020 [facility] mmol/L 10:46 PM [facility] Anion Gap 5 3 - 14 10/24/2020 [facility] mmol/L 10:46 PM [facility] Glucose 162 (H) 70 - 99 10/24/2020 [facility] mg/dL 10:46 PM [facility] Urea Nitrogen 12 7 - 30 10/24/2020 [facility] mg/dL 10:46 PM [facility] Creatinine 0.87 0.66 - 10/24/2020 [facility] 1.25 mg/dL 10:46 PM [facility] GFR Estimate >90 >60 10/24/2020 [facility] mL/min/{1. 10:46 PM [facility] 73_m2} [facility]OSP[facility] Comment: Non GFR Calc Starting 09/01/2018, serum creatinine ba sed estimated GFR (eGFR) will be calculated using the Chronic Kidney Dise [facility] Epidemiology Collaboration (CKD-EPI) equation. GFR Estimate If >90 >60 mL/min/{1.73_m2} 10/24/2020 10:46 PM [facility] Comment: GFR Calc Starting 09/01/2018, serum creatinine ba sed estimated GFR (eGFR) will be calculated using the Chronic Kidney Dise [facility] Epidemiology Collaboration (CKD-EPI) equation. Calcium 9.0 8.5 - 10.1 mg/dL 10/24/2020 10:46 PM [facility] Specimen Anatomical Collection Method Collection Time Receive d Time (Source) Location / / Volume Laterality Blood specimen 10/24/2020 10:18 1 (specimen) PM BELT CUTTER 10:27 PM BELT CUTTER Lupillo Pina MD LAB - BLOOD ORDERABLES Performing Organization Address City/State/ZIP Code Phon e Number M [facility] [address] [address] [facility] [address] [address], [facility] [phone] [facility] [place] [address] [place] [address], [facility] [phone] HOSPITAL (ABNORMAL) CBC with platelets differential (10/24/2020 10:18 PM [facility]) [facility] Method Time Signature WBC 13.5 (H) 4.0 - 10/24/2020 [facility] 11.0 10:31 PM [facility] 10e9/L [facility] RBC Count 5.84 4.4 - 5.9 10/24/2020 [facility] 10e12/L 10:31 PM [facility] Hemoglobin 15.5 13.3 - 10/24/2020 [facility] 17.7 g/dL 10:31 PM [facility] Hematocrit 48.6 40.0 - 10/24/2020 [facility] 53.0 % 10:31 PM [facility] MCV 83 78 - 100 10/24/2020 [facility] fl 10:31 PM [facility] MCH 26.5 26.5 - 10/24/2020 [facility] 33.0 pg 10:31 PM [facility] MCHC 31.9 31.5 - 10/24/2020 [facility] 36.5 g/dL 10:31 PM [facility] RDW 14.8 10.0 - 10/24/2020 [facility] 15.0 % 10:31 PM [facility] Platelet Count 281 150 - 450 10/24/2020 [facility] 10e9/L 10:31 [facility] Diff Method Automated 10/24/2020 [facility] Method 10:31 [facility] % Neutrophils 71.3 % 10/24/2020 [facility] 10:31 PM [facility] % Lymphocytes 19.6 % 10/24/2020 [facility] 10:31 PM [facility] % Monocytes 6.4 % 10/24/2020 [facility] 10:31 PM [facility] % Eosinophils 1.8 % 10/24/2020 [facility] 10:31 PM [facility] % Basophils 0.6 % 10/24/2020 [facility] 10:31 [facility] % Immature 0.3 % 10/24/2020 [facility] Granulocytes 10:31 PM [facility] Nucleated RBCs 0 0 /100 10/24/2020 [facility] 10:31 PM [facility] Absolute 9.6 (H) 1.6 - 8.3 10/24/2020 [facility] Neutrophil 10e9/L 10:31 PM [facility] Absolute 2.6 0.8 - 5.3 10/24/2020 [facility] Lymphocytes 10e9/L 10:31 PM [facility] Absolute 0.9 0.0 - 1.3 10/24/2020 [facility] Monocytes 10e9/L 10:31 PM [facility] Absolute 0.2 0.0 - 0.7 10/24/2020 [facility] Eosinophils 10e9/L 10:31 PM [facility] Absolute 0.1 0.0 - 0.2 10/24/2020 [facility] Basophils 10e9/L 10:31 PM [facility] Abs Immature 0.0 0 - 0.4 10/24/2020 [facility] Granulocytes 10e9/L 10:31 PM [facility] Absolute 0.0 10/24/2020 [facility] Nucleated RBC 10:31 PM [facility] Specimen Anatomical Collection Method Collection Time Receive d Time (Source) Location / / Volume Laterality Blood specimen 10/24/2020 10:18 1 (specimen) PM BELT CUTTER 10:27 PM BELT CUTTER Lupillo Pina MD LAB - BLOOD ORDERABLES Performing Organization Address City/State/ZIP Code Phon e Number [facility] [address] [address] [facility] [address] [phone] EKG 12-lead, tracing only (10/24/2020 9:17 PM BELT CUTTER) [facility] gist Method Time Signature Interpretation ECG Click View RADIOLOGY Image link RESULTS to view waveform and result Specimen (Source) Anatomical Collection Method Collection Time Re ceived Time Location / / Volume Laterality 10/24/2020 9:17 PM BELT CUTTER Lupillo Pina MD ECG ORDERABLES Performing Organization Address City/State/ZIP [facility] Phon e Number RADIOLOGY RESULTS documented in this encounter Visit Diagnoses Diagnosis Ingrown nail Ingrowing nail Pain, dental Unspecified disorder of the teeth and jimenez pporting structures Pain of right thigh Pain in limb documented in this encounter Administered Medications Inactive Administered Medications - up to 3 most recent administrations Medication Order MAR Action Action Date Dose Rate Site ampicillin-sulbactam (UNASYN) New Bag 10/24/2020 11:33 PM BELT CUTTER 3 g 100 mL/hr 3 g vial to attach to NS 100 mL bag STAT, 3 g, Intravenous, ONCE, On Fri10/24/20 at 2320, For 1 dose, Indications: Skin and Soft Tissue Infection lidocaine 2 % injection Given 10/24/2020 11:33 PM Other (s ee comments) Starting on Fri10/24/20 at 2317, BELT CUTTER For 1 dose, Lupillo Pina: cabinet override documented in this encounter Active and Recently Administered Medications Times are shown in BELT CUTTER. Scheduled Medication Order 10/23/2020 10/24/2020 10/25/2020 ampicillin-sulbactam (UNASYN) 3 g vial to attach to NS 100 m L bag (COMPLETED) 2333 (New Bag - Provider: Aisha Jeffrey, RN) 0036 (Stopped - Provider: Quan Marcus RN) STAT, 3 g, Intravenous, ONCE, On 10/24 at 2320, For 1 dose, Indications: Skin and Soft Tissue Infection No Frequency Medication Order 10/23/2020 10/24/2020 10/25/2020 lidocaine 2 % injection (COMPLETED) 2333 (Given - Provider: Aisha Jeffrey RN - Comment: right great toe) Starting Fri10/24/20 at 2317, For 1 dose, Lupillo Pina: cabinet override documented in this encounter Care Teams Taxicab Coordinator Relationship Specialty Start Date End Date [facility], [facility] PCP - General 10/25/20 [address] [place] [address] documented as of this encounter
--- OUTSIDE RECORDS SUMMARY | 2022-06-23 22:48 | XMS_ITS | Clinical Summary ---
:1970 Author Organization [facility] Address [address] [place] [address] Care Team Providers Name Role Phone Keven, Miguel [place] Primary Care Provider [phone] Allergies Active Allergy Reactions Severity Noted Date Comments Lisinopril 10/24/2020 Social History Tobacco Use Types Packs/Day Years Used Date Smoking Tobacco: Never Assessed Sex Assigned at Date Recorded Not on file Last Filed Vital Signs Vital Sign Reading Time Taken Comments Blood Pressure 162/112 10/24/2020 9:04 PM CERTIFIED PUBLIC ACCOUNTANT Pulse 69 10/24/2020 9:04 PM CERTIFIED PUBLIC ACCOUNTANT Temperature 36.8 ??C (98.3 ??F) 10/24/2020 9:04 PM CERTIFIED PUBLIC ACCOUNTANT Respiratory Rate 20 10/24/2020 9:04 PM CERTIFIED PUBLIC ACCOUNTANT Oxygen Saturation 95% 10/25/2020 12:55 AM CERTIFIED PUBLIC ACCOUNTANT Inhaled Oxygen Concentration - - Weight 145.2 kg (320 lb) 10/24/2020 9:04 PM CERTIFIED PUBLIC ACCOUNTANT Height 167.6 cm (5' 6) 10/24/2020 9:04 PM CERTIFIED PUBLIC ACCOUNTANT Body Mass Index 51.65 10/24/2020 9:04 PM CERTIFIED PUBLIC ACCOUNTANT Plan of Treatment Health Maintenance Due Date Last Done Comments ADVANCE CARE PLANNING 1970 ANNUAL REVIEW OF HM ORDERS [address] CT COLONOGRAPHY 1970 FIT-DNA (Cologuard) 1970 FIT 1970 FLEX SIG 1970 YEARLY PREVENTIVE VISIT 1970 COVID-19 Vaccine (#1) 1970 COLONOSCOPY 1980 COLORECTAL CANCER SCREENING 1980 HIV SCREENING 1985 HEPATITIS C SCREENING 1988 DTAP/TDAP/TD IMMUNIZATION 11/16/2004 11/15/2004 (1 - Tdap) LIPID 2005 ZOSTER IMMUNIZATION (1 of 2020 2) PHQ-2 (once per calendar 09/15/2021 year) INFLUENZA VACCINE (#1) 2022 06/08/2020, 06/10/2019, 06/25/2018, Additional history exists HEPATITIS B IMMUNIZATION Aged Out 03/08/2019, 11/23/2018, No longer eligible 07/16/2015 based on patient 's age to complete this topic Pneumococcal Vaccine: Aged Out 03/08/2019, 12/22/2017, No longer eligible Pediatrics (0 to 5 Years) 02/27/2003 based on patient's age and At-Risk Patients (6 to to co mplete this topic 64 Years) IPV IMMUNIZATION Aged Out No longer eligi ble based on patient 's age to complete this topic MENINGITIS IMMUNIZATION Aged Out No longe r eligible based on patient 's age to complete this topic Care Teams Infectious Diseases Physician Relationship Specialty Start Date End Date Clinic, Miguel Funes PCP - General 10/25/[address] [place] [id number]
[2022-06-23 22:51] VITALS: BP 125/74; PULSE 82; RESP 18; TEMP 36.6
[2022-06-23 23:24] VITALS: BP 115/74; PULSE 79; RESP 18; TEMP 36.6; O2SAT 99
== END 2022-06-23 22:51 | disposition home or self-care (01) ==
LOC: ED 22:36
PROVIDERS: Emergency Provider Family Medicine; PCP Surgery
DX: K62.5 Hemorrhage of anus and rectum (principal); E11.9 Type 2 diabetes mellitus without complications
CPT/HCPCS: 36415; 80048; 85025; 99282; 99283

== ENCOUNTER 2023-05-12 13:27 | Emergency (ER) | payer MEDICAID, SELFPAY ==
--- OUTSIDE RECORDS SUMMARY | 2023-05-12 13:50 | XMS_ITS | Continuity of Care Document ---
Author Name Unknown Organization [facility] Address [address] [place] [address] Phone Care Team Providers Care [employer] Name Role Phone Carlos Marshall MD Unavailable Unavailable Allergies, Adverse Reactions, Alerts Substance Reaction Status Criticality metformin Active No Information lisinopril Active No Information Medications Medication Instructions Dosage Effective Dates (start - stop) Status Comments VITAMIN C (unknown strength) Not Available - Active ARNUITY ELLIPTA (unknown strength) Not Available - Active ASPIRIN (unknown strength) Not Available - Active ATORVASTATIN CALCIUM (unknown strength) Not Available - Active BUSPIRONE HCL (unknown strength) Not Available - Active CLOTRIMAZOLE (unknown strength) Not Available - Active FEROSUL (unknown strength) Not Available - Active FLUOXETINE HCL (unknown strength) Not Available - Active HYDROXYZINE HCL (unknown strength) Not Available - Active JARDIANCE (unknown strength) Not Available - Active LEVOCETIRIZINE DIHYDROCHLORIDE (unknown strength) Not Available - Active NAPROXEN (unknown strength) Not Available - Active NYSTATIN (unknown strength) Not Available - Active OMEPRAZOLE (unknown strength) Not Available - Active PROPRANOLOL HCL (unknown strength) Not Available - Active TOSYMRA (unknown strength) Not Available - Active VALSARTAN (unknown strength) Not Available - Active XOLEGEL (unknown strength) Not Available - Active Procedures Procedure Date Office/Outpatient Visit,New, Mod 2021 X-Ray Exam Of Neck Spine, 4+ Views Advance Directives Directive Yes / No Effective Date File Name No Information Encounters Encounter Description Practice Location Reason(s) For Visit Diagnoses Date Provider Providers Copied on Encounter [facility], [address], [place], [id number], [place] tel:[phone] [facility] No Information Joanna Gonzalez. [facility], [address], [address], [place], [address], [place]. tel:[phone] [facility]pati [facility], [address], [place], [place], [id number], [place] tel:[phone] [facility] Other spondylosis with myelopathy, cervical region Joanna Gonzalez. [facility], [address], [address], [place], [address], [place]. tel:[phone] Referring Provider: Aaron Robert, [address], [place], [address]. tel:[phone] Family History Family Member Type Diagnosis Age At Onset No Information Payers Payer name Insurance type Covered constitution party ID Isatu hodgson(s) Kateirwin NORA Rivera 2021 [id number] Social History Type Description Quantity Date Captured Comments Sex Male Smoking Status No Information Chief Complaint And Reason For Visit No Information Reason For Referral Reason For Referral No Information History Of Present Illness Encounter Date Complaint History Of Prese nt Illness No Information Functional Status Date Functional Assessmen t No Information Instructions Date Instruction Additional Infor mation No Information Assessments Type Assessment Date No Information Patient Care Teams Name Effective Dates (start - stop) Status Members No Information
== END 2023-05-12 13:46 | disposition left against medical advice (07) ==
PROVIDERS: Emergency Provider Emergency Medicine Emergency Medical Services; PCP Surgery
DX: Z53.21 Procedure and treatment not carried out due to patient leaving prior to being seen by health care provider (principal)

== ENCOUNTER 2023-06-29 11:13 | Emergency (ER) | payer MEDICAID, SELFPAY ==
[2023-06-29] VITALS (19 sets, daily range): BP systolic 118–155; BP diastolic 75–89; PULSE 78–87; RESP 18; TEMP 36.8; O2SAT 94–97; BMI 51.3
--- NOTE | 2023-06-29 | CRLHL7_ITS ---
For Patients: As a result of the 21st Century Cures Act, medical imaging exams and procedure reports are released immediately into your electronic medical record. You may view this report before your referring provider. If you have questions, please contact your health care provider. INDICATION: shortness of breath, RUQ pain TECHNIQUE: CT abdomen and pelvis acquired with 95 cc Isovue 370 IV contrast. COMPARISON: Dating back to January 2020. FINDINGS: Lower chest: Refer to chest CT of same day ABDOMEN: Liver: Multifocal hepatic masses throughout the liver measuring up to 15.6 cm in segment 6. Some of these are heterogeneous mother`s have cystic regions. Gallbladder and biliary: Contracted gallbladder. Normal caliber bile ducts. Spleen: Normal size and enhancement. Pancreas: Normal enhancement without peripancreatic inflammatory changes or ductal dilatation. Adrenal glands: Normal adrenal glands. Kidneys and ureters: Normal enhancement. No radio-opaque calculi. No hydroureteronephrosis. Stable left upper pole area surrounding halo with more intrinsic areas of macroscopic fat calcification and nodularity, on likely sequela of prior RFA versus partial resection. GI tract: The stomach is relatively decompressed. Normal caliber small and large bowel loops. Appendix is not definitively visualized. Vascular structures: Normal caliber abdominal aorta. Lymph nodes: No lymphadenopathy in the abdomen or pelvis by size criteria. Peritoneum: No free air, free fluid, or focal drainable fluid collection. PELVIS: Genitourinary system: Although relatively decompressed there is suggestion of circumferential wall thickening of the urinary bladder. Recommend correlation with urinalysis if not already performed to assess for underlying cystitis. Normal size prostate. SKELETAL STRUCTURES AND SOFT TISSUES: Trace anterolisthesis of L5 on S1 secondary to bilateral L5 pars defects. IMPRESSION: 1. Multifocal hepatic masses throughout the liver measuring up to 15.6 cm. Findings raised concerns for metastatic disease. Recommend further evaluation with dedicated tissue sampling if not previously performed. 2. Although relatively decompressed there is suggestion of circumferential wall thickening of the urinary bladder. Recommend correlation with urinalysis if not already performed to assess for underlying cystitis. 3. Stable left renal upper pole area surrounding halo with more intrinsic areas of macroscopic fat calcification and nodularity, on likely sequela of prior RFA versus partial resection. Please note that all CT scans at this facility use dose modulation, iterative reconstruction, and/or weight-based dosing when appropriate to reduce radiation dose to as low as reasonably achievable. Dictated by Oj Vogt MD @ 06/29/2023 4:32:09 PM (Electronically Signed)
--- NOTE | 2023-06-29 12:52 | ED.GENADULT ---
HPI - General Adult General Chief complaint: Shortness of Breath/Dyspnea Stated complaint: pain on right side Time Seen by Provider: 06/29/23 12:41 Source: patient and family Mode of arrival: ambulatory Limitations: no limitations History of Present Illness HPI narrative: Patient is a 53-year-old male with a history of carcinoma of the kidney, hypertension, morbid obesity, obstructive sleep apnea, type 2 diabetes presenting today with several concerns. 1. Shortness of breath patient states he has felt short of breath for several weeks. Patient is a very poor historian. He states that he feels like he has to breathe extra heart in order to get the oxygen that he needs. This happens all day long. Nothing seems to make it better or worse. He denies chest pain or diaphoresis associated with this sensation. Denies any recent traveling. No changes in his medications. No cough. He denies fever. States that he gets chills every now and then and cannot be more specific on how often or how long that has been going on for. 2. Right-sided flank pain. This has been present for 2 weeks. Nothing makes it better and ?everything? makes it worse. Patient states that he did fall 3 weeks ago and the pain started 1 week after the fall. Unclear if he hurt anything when he actually fell, but he states that he was ?checked out and everything was fine?. His review of systems is grossly positive for constipation, fatigue, decreased appetite, no changes in his weight but he is ?not really sure?, dark urine, difficulty sleeping at night. Related Data Home Medications Medication Instructions Recorded Confirmed atorvastatin 40 mg tablet 40 mg PO DAILY 05/12/23 05/12/23 blood-glucose sensor (Wavemark G6 #1 ea 05/12/23 05/12/23 Sensor device) buspirone 15 mg tablet 15 mg PO BID 05/12/23 05/12/23 fluoxetine 20 mg capsule 60 mg PO QAM 05/12/23 05/12/23 insulin aspart U-100 100 unit/mL subcut 05/12/23 05/12/23 (3 mL) subcutaneous pen insulin glargine 100 unit/mL (3 unit subcut 05/12/23 05/12/23 mL) subcutaneous pen (Lantus Solostar U-100 Insulin) naproxen 500 mg tablet 500 mg PO BID 05/12/23 05/12/23 omeprazole 40 mg capsule,delayed 40 mg PO DAILY 05/12/23 05/12/23 release valsartan 80 mg tablet 80 mg PO DAILY 05/12/23 05/12/23 Allergies Allergy/AdvReac Type Severity Reaction Status Date / Time lisinopril Allergy Mild Cough Verified 06/29/23 15:52 metformin AdvReac Mild Diarrhea Verified 06/29/23 15:52 Review of Systems Status of ROS: Reports: 10 or more systems reviewed and unremarkable except as noted in History and below [facility] Medical History Psoriasis ?L40.9 - Psoriasis, unspecified (ICD-10) Eczema ?L30.9 - Dermatitis, unspecified (ICD-10) Carcinoma of kidney ?C64.9 - Malignant neoplasm of unspecified kidney, except renal pelvis (ICD-10) Hypertension ?I10 - Essential (primary) hypertension (ICD-10) Type 2 diabetes mellitus without complication, with long-term current use of insulin ?E11.9 - Type 2 diabetes mellitus without complications (ICD-10) ?Z79.4 - intermediate (current) use of insulin (ICD-10) TYSON (obstructive sleep apnea) ?G47.33 - Obstructive sleep apnea (adult) (pediatric) (ICD-10) 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) Morbid obesity ?E66.01 - Morbid (severe) obesity due to excess calories (ICD-10) Carpal tunnel syndrome ?G56.00 - Carpal tunnel syndrome, unspecified upper limb (ICD-10) Aphasia ?R47.01 - Aphasia (ICD-10) Social History Smoking Status: Never smoker Do you use any of these nicotine containing products: None Second hand tobacco smoke exposure: No How often do you have a drink containing alcohol: never How often do you have six or more drinks on one occasion: Never AUDIT-C Alcohol total score: 0 Non-prescribed substance use: denies use Exam Narrative: Exam Narrative: Morbidly obese patient in no acute distress. Alert and oriented x3 him. Answers questions appropriately. Mood is appropriate, affect is slightly flat. Thoughts are goal oriented and rational. No tangential or magical thinking noted. Patient speaks in full sentences without needing to catch his breath. His speech is a bit slow. Again he is very poor historian has a difficult time answering questions in detail. HEENT: Normocephalic atraumatic. Pupils are equally round reactive to light. Extraocular muscles are intact. Conjunctivae are moist without any icterus noted. Slightly dry mucous membranes. Posterior pharynx is normal. Neck is soft without any lymphadenopathy or thyromegaly. No masses are appreciated. Cardiovascular: Heart is regular rate and rhythm S1 and S2 are present without any murmurs. Lungs: Clear to auscultation bilaterally no wheezes rhonchi or rales are appreciated. Patient takes deep breaths without any discomfort. Abdomen: Protuberant, soft with slightly hypoactive bowel sounds. Cannot assess for organomegaly secondary to body habitus. Patient complains of Diffuse mild tenderness throughout the entire abdomen with light palpation. There is no CVA tenderness. Extremities: Bilateral lower extremities have 2+ pitting edema. Skin: Well perfused without any obvious rashes. Skin is a bit pale. Const: Vital Signs, click to edit/add: Vital Signs - 24 hr 06/29/23 11:33 06/29/23 13:00 06/29/23 13:28 Temperature 98.2 F Pulse Rate 78 Pulse Rate [Right Pulse Oximeter] 83 Respiratory Rate 18 Blood Pressure Blood Pressure [Ri ght Upper Arm] 118/75 Pulse Oximetry 96 95 97 Oxygen Delivery Me thod Room Air 06/29/23 13:30 06/29/23 13:31 06/29/23 13:45 Temperature Pulse Rate 80 78 Pulse Rate [Right Pulse Oximeter] Respiratory Rate Blood Pressure 145/86 H Blood Pressure [Ri ght Upper Arm] Pulse Oximetry 96 94 Oxygen Delivery Me thod 06/29/23 14:00 06/29/23 14:02 06/29/23 14:15 Temperature Pulse Rate 81 81 83 Pulse Rate [Right Pulse Oximeter] Respiratory Rate Blood Pressure 155/89 H Blood Pressure [Ri ght Upper Arm] Pulse Oximetry 96 95 94 Oxygen Delivery Me thod 06/29/23 14:30 06/29/23 14:31 06/29/23 14:45 Temperature Pulse Rate 82 80 85 Pulse Rate [Right Pulse Oximeter] Respiratory Rate Blood Pressure 154/86 H Blood Pressure [Ri ght Upper Arm] Pulse Oximetry 94 95 94 Oxygen Delivery Me thod 06/29/23 15:00 06/29/23 15:02 06/29/23 15:03 Temperature Pulse Rate 84 83 87 Pulse Rate [Right Pulse Oximeter] Respiratory Rate Blood Pressure 145/82 H Blood Pressure [Ri ght Upper Arm] Pulse Oximetry 94 95 96 Oxygen Delivery Me thod Room Air 06/29/23 15:15 06/29/23 15:30 06/29/23 15:31 Temperature Pulse Rate 79 82 79 Pulse Rate [Right Pulse Oximeter] Respiratory Rate Blood Pressure 142/88 H Blood Pressure [Ri ght Upper Arm] Pulse Oximetry 94 95 94 Oxygen Delivery Me thod Course Course ED Course: IV was established and labs were drawn. EKG, read by me, shows normal sinus rhythm with a pulse of 75, left axis deviation. CBC shows slightly elevated white cell count at 11.7, hemoglobin slightly low at 11.5. ESR is elevated at 45, D-dimer markedly elevated at 11.48. Electrolytes unremarkable, normal creatinine BUN. LFTs elevated with a total bili of 3.1, direct bili of 1.8, AST of 385, ALT 165, alk phos 426. Troponin was normal. Urinalysis orange in color, 2+ protein, 2+ glucose, trace ketones, 1+ bilirubin. Right upper quadrant ultrasound was ordered showing unremarkable gallbladder multiple lesions in the liver. Given the elevated D-dimer in abnormal ultrasound, a PE chest CT was ordered as well as an abdominal CT. No PE was visualized, however multiple lesions in the liver again seen in concerning for metastatic disease. Discussed findings with patient tells me that he got his previous cancer care at [facility]. I did talk to Dr. Vasquez, oncologist on-call male who recommended that the patient calls primary oncology team 1st thing Friday morning to set up an appointment and a probable biopsy. Vital Signs Vital signs: Initial Vital Signs Temperature 98.2 F 06/29/23 11:33 Temperature Source Temporal Artery Scan 06/29/23 11:33 Pulse Rate 83 06/29/23 11:33 Respiratory Rate 18 06/29/23 11:33 Blood Pressure 118/75 06/29/23 11:33 Blood Pressure Mean 89 06/29/23 11:33 Blood Pressure Position Sitting 06/29/23 11:33 Pulse Oximetry 96 06/29/23 11:33 Oxygen Delivery Method Room Air 06/29/23 11:33 Vital Signs Temperature 98.2 F 06/29/23 11:33 Pulse Rate 83 06/29/23 11:33 Respiratory Rate 18 06/29/23 11:33 Blood Pressure 118/75 06/29/23 11:33 Pulse Oximetry 96 06/29/23 11:33 Oxygen Delivery Method Room Air 06/29/23 11:33 Temperature 98.2 F 06/29/23 11:33 Pulse Rate 79 06/29/23 15:31 Respiratory Rate 18 06/29/23 11:33 Blood Pressure 142/88 H 06/29/23 15:31 Pulse Oximetry 94 06/29/23 15:31 Oxygen Delivery Method Room Air 06/29/23 15:03 Medical Decision Making MDM Narrative Medical decision making narrative: 53-year-old male with right upper quadrant pain and masses visualized on his liver. Plan per above. Medical Records Medical records reviewed: Yes I reviewed the patient's medical records Lab Data Lab results reviewed: Yes I reviewed the patient's lab results Labs: Lab Results 06/29/23 06/29/23 06/29/23 Range/Units 12:50 13:05 13:24 WBC 11.76 H (4.50-11.00) K/uL RBC 4.42 (4.30-5.90) m/uL Hgb 11.5 L (13.5-17.5) gm/dL Hct 37.1 (37.0-53.0) % MCV 84 (80-100) fL MCH 26 (26-34) pg MCHC 31 L (32-36) gm/dL RDW Coeff of Jamil 17.0 H (11.5-15.5) % Plt Count 329 (140-440) K/uL Neut % (Auto) 77.2 H (42.0-72.0) % Lymph % (Auto) 11.3 L (20-44) % [place] % (Auto) 9.7 (0.0-11.0) % Eos % (Auto) 1.1 (0.0-7.0) % Baso % (Auto) 0.3 (0.0-3.0) % Neut # (Auto) 9.10 H (1.7-7.0) K/uL Lymph # (Auto) 1.30 (0.90-2.90) K/uL [place] # (Auto) 1.10 H (0.00-0.90) K/UL Eos # (Auto) 0.10 (0.00-0.50) K/uL Baso # (Auto) 0.00 (0.00-0.30) K/uL Abs Immat Gran (auto) 0.00 (0.00-0.30) K/uL Imm/Tot Granulo (auto) 0.4 % ESR 45 H (2-15) mm/hr INR 1.04 (0.91-1.10) D-Dimer Quant (PE/DVT) 11.48 H (0.00-0.50) ug/ml Sodium 139 (135-149) mmol/L Potassium 4.1 (3.6-5.1) mmol/L Chloride 105 (96-114) mmol/L Carbon Dioxide 26 (20-32) mmol/L Anion Gap 8 (7-15) mEq/L BUN 17 (7-30) mg/dL Creatinine 0.8 (0.5-1.5) mg/dL Estimated Creat Clear 96.36 Estimated GFR 106 ml/min Glucose 123 H (60-115) mg/dL Lactate 2.0 H (0.5-1.9) mmol/L Calcium 8.6 (8.4-10.6) mg/dL Total Bilirubin 3.1 H (0.1-1.5) mg/dL Direct Bilirubin 1.8 H (0.0-0.5) mg/dL AST 385 H (12-35) U/L ALT 165 H (4-50) U/L Alkaline Phosphatase 426 H (40-150) U/L Troponin I < 0.01 L (0.01-0.04) ng/mL C-Reactive Protein 8.3 H (0.5-1.0) mg/dL NT-Pro-B Natriuret Pep 607 pg/mL Total Protein 6.9 (6.0-8.3) g/dL Albumin 3.1 L (3.3-5.0) g/dL Lipase 48 (23-300) U/L TSH 0.621 (0.270-4.20) uIU/mL Urine Color [place] A (Yellow) Urine Appearance Cloudy A (Clear) Urine pH 5.5 (5.0-8.5) Ur Specific [place] >= 1.030 (1.000-1.030) Urine Protein 2+ A (Negative) Urine Glucose (UA) 2+ A (Negative) Urine Ketones Trace A (Negative) Urine Blood Negative (Negative) Urine Nitrite Negative (Negative) Urine Bilirubin 1+ A (Negative) Urine Urobilinogen 1.0 (0.2-1.0) Ur Leukocyte Esterase Negative (Negative) Urine RBC 0-2 (0-2) Urine WBC 5-10 A (0-5) Ur Squamous Epith Cells Moderate A (None-Few) Amorphous Sediment Many A (None) Urine Bacteria Few A (None) Urine Mucus Few A (None) POC Troponin I 0.00 L (0.01-0.04) ng/ml Imaging Data US - abdomen: Attestation: I have reviewed the pertinent imaging results. Radiologist's impression: Limited abdominal ultrasound. COMPARISON: CT from 02/13/2020. FINDINGS: Liver is heterogeneous in appearance with multiple masses present. They may indicate the presence of hepatic metastases. Further evaluation with CT imaging with contrast is suggested. There is no biliary ductal dilatation. Extrahepatic bile duct measures 4 mm which is normal. The gallbladder is nondistended. The gallbladder wall appears thickened though this may relate to its nondistended nature. No gallstones are apparent. Right kidney unremarkable. No upper abdominal ascites. IMPRESSION: 1. Heterogeneous liver with multiple masses which may reflect metastases. Further evaluation with CT imaging is suggested. 2. Contracted gallbladder, without stones. 3. No biliary ductal dilatation. CT scan - abdomen: Attestation: I have reviewed the pertinent imaging results. Radiologist's impression: CT abdomen and pelvis acquired with 95 cc Isovue 370 IV contrast. COMPARISON: Dating back to January 2020. FINDINGS: Lower chest: Refer to chest CT of same day ABDOMEN: Liver: Multifocal hepatic masses throughout the liver measuring up to 15.6 cm in segment 6. Some of these are heterogeneous mother`s have cystic regions. Gallbladder and biliary: Contracted gallbladder. Normal caliber bile ducts. Spleen: Normal size and enhancement. Pancreas: Normal enhancement without peripancreatic inflammatory changes or ductal dilatation. Adrenal glands: Normal adrenal glands. Kidneys and ureters: Normal enhancement. No radio-opaque calculi. No hydroureteronephrosis. Stable left upper pole area surrounding halo with more intrinsic areas of macroscopic fat calcification and nodularity, on likely sequela of prior RFA versus partial resection. GI tract: The stomach is relatively decompressed. Normal caliber small and large bowel loops. Appendix is not definitively visualized. Vascular structures: Normal caliber abdominal aorta. Lymph nodes: No lymphadenopathy in the abdomen or pelvis by size criteria. Peritoneum: No free air, free fluid, or focal drainable fluid collection. PELVIS: Genitourinary system: Although relatively decompressed there is suggestion of circumferential wall thickening of the urinary bladder. Recommend correlation with urinalysis if not already performed to assess for underlying cystitis. Normal size prostate. SKELETAL STRUCTURES AND SOFT TISSUES: Trace anterolisthesis of L5 on S1 secondary to bilateral L5 pars defects. IMPRESSION: 1. Multifocal hepatic masses throughout the liver measuring up to 15.6 cm. Findings raised concerns for metastatic disease. Recommend further evaluation with dedicated tissue sampling if not previously performed. 2. Although relatively decompressed there is suggestion of circumferential wall thickening of the urinary bladder. Recommend correlation with urinalysis if not already performed to assess for underlying cystitis. 3. Stable left renal upper pole area surrounding halo with more intrinsic areas of macroscopic fat calcification and nodularity, on likely sequela of prior RFA versus partial resection. CT scan - chest: Attestation: I have reviewed the pertinent imaging results. Radiologist's impression: CT chest PE was acquired with 95 cc Isovue 370 IV contrast. COMPARISON: None FINDINGS: Pulmonary Arteries: Suboptimal contrast bolus timing acquisition and motion degrades evaluation of the pulmonary arteries. No discrete large central pulmonary embolus. No pulmonary hypertension or right ventricular strain. Heart and Mediastinum: Atrophic versus resected thyroid. No axillary or supraclavicular lymphadenopathy. No mediastinal, hilar or retrocrural lymphadenopathy. Normal heart size. Normal caliber aorta. Lungs and Airways: Motion. Six millimeter nodule within the left apex, axial image 19. Right basilar passive subsegmental atelectasis. 3 millimeter nodule abutting the minor fissure, potentially calcified. No endoluminal lesion. Pleura: Trace right pleural effusion. Abdomen: Refer to dedicated abdominal CT of same day. Bones and soft tissues: The skeletal structures and soft tissues of the chest wall are unremarkable. IMPRESSION: 1. Suboptimal contrast bolus timing acquisition and motion degrades evaluation of the pulmonary arteries. No discrete large central pulmonary embolus. 2. 6 millimeter left apex indeterminate pulmonary nodule. Recommend attention on follow-up exams per clinical protocol. 3. Refer to dedicated abdominal CT of same day for evaluation of the abdomen and pelvis. ECG Data Attestation: I personally reviewed and interpreted this ECG as follows: Discharge Plan Discharge Clinical Impression: Liver mass Patient Disposition: Home, Self-Care Condition: Stable Additional Instructions: You will need to call your oncology team 1st thing Friday morning and request a follow-up emergency room appointment. Tell them you were seen in the emergency room on Friday and diagnosed with multiple liver masses. A consultation was done with Dr. Vasquez, oncologist on-call at [place], who recommended you have a follow-up appointment done for a liver biopsy. Prescriptions: No Action (DME) Dexcom G6 Sensor Device See Rx Instructions .ROUTE Q10D Qty: 1 Rx Instructions: As directed insulin glargine [Lantus Solostar U-100 Insulin] 100 unit/mL (3 mL) insulin pen subcut insulin aspart U-100 100 unit/mL (3 mL) insulin pen subcut omeprazole 40 mg capsule,delayed release(DR/EC) 40 mg PO DAILY valsartan 80 mg tablet 80 mg PO DAILY atorvastatin 40 mg tablet 40 mg PO DAILY buspirone 15 mg tablet 15 mg PO BID naproxen 500 mg tablet 500 mg PO BID fluoxetine 20 mg capsule 60 mg PO QAM Follow Up/Referrals: Aaron Miranda MD [Primary Care Provider] - Stand Alone Forms: PowerMessage Info Instructions
[2023-06-29 13:34] LABS: Basophils Percent Auto 0.3 % (0.0-3.0); Eosinophils Percent Auto 1.1 % (0.0-7.0); Hematocrit 37.1 % (37.0-53.0); Hemoglobin* 11.5 gm/dL (13.5-17.5); Immature Granulocytes Pct Auto 0.4 %; Lymphocytes Percent Auto 11.3 % (20-44); Mean Corpuscular HGB Conc 31 gm/dL (32-36); Mean Corpuscular Hemoglobin 26 pg (26-34); Mean Corpuscular Volume 84 fL (80-100); Monocytes Percent Auto 9.7 % (0.0-11.0); Neutrophils Percent Auto 77.2 % (42.0-72.0); Platelet Count* 329 K/uL (140-440); Red Blood Count 4.42 m/uL (4.30-5.90); White Blood Count* 11.76 K/uL (4.50-11.00)
[2023-06-29 13:35] LABS: Slide Review Reflex No
[2023-06-29 13:35] LABS: Appearance Urine Cloudy (Clear); Bilirubin Urine 1+ (Negative); Blood Urine Negative (Negative); Color Urine Orange (Yellow); Glucose Urine 2+ (Negative); Ketones Urine Trace (Negative); Leukocyte Esterase Urine Negative (Negative); Nitrite Urine Negative (Negative); Protein Urine 2+ (Negative); Specific Gravity Urine >= 1.030 (1.000-1.030); pH Urine 5.5 (5.0-8.5)
[2023-06-29 13:46] LABS: RBC Urine 0-2 (0-2)
[2023-06-29 13:47] LABS: Amorphous Sediment Urine Many; Bacteria Urine Few; Mucus Urine Few; Squamous Epithelial Cell Urine Moderate (None-Few)
[2023-06-29 13:55] LABS: Albumin* 3.1 g/dL (3.3-5.0); Chloride* 105 mmol/L (96-114); Potassium* 4.1 mmol/L (3.6-5.1); Sodium* 139 mmol/L (135-149)
[2023-06-29 13:56] LABS: INR 1.04 (0.91-1.10); Prothrombin Time 14.3 Seconds
--- OUTSIDE RECORDS SUMMARY | 2023-06-29 13:56 | XMS_ITS | Continuity of Care Document ---
Author Name Unknown Organization [facility] Address [address] [place] [address] Phone Care Team Providers Care Steward/Stewardess Banquet Name Role Phone Carlos Marshall MD Unavailable Unavailable Allergies, Adverse Reactions, Alerts Substance Reaction Status Criticality metformin Active No Information lisinopril Active No Information Medications Medication Instructions Dosage Effective Dates (start - stop) Status Comments XOLEGEL (unknown strength) Not Available - Active VALSARTAN (unknown strength) Not Available - Active TOSYMRA (unknown strength) Not Available - Active PROPRANOLOL HCL (unknown strength) Not Available - Active OMEPRAZOLE (unknown strength) Not Available - Active NYSTATIN (unknown strength) Not Available - Active NAPROXEN (unknown strength) Not Available - Active LEVOCETIRIZINE DIHYDROCHLORIDE (unknown strength) Not Available - Active JARDIANCE (unknown strength) Not Available - Active HYDROXYZINE HCL (unknown strength) Not Available - Active FLUOXETINE HCL (unknown strength) Not Available - Active FEROSUL (unknown strength) Not Available - Active CLOTRIMAZOLE (unknown strength) Not Available - Active BUSPIRONE HCL (unknown strength) Not Available - Active ATORVASTATIN CALCIUM (unknown strength) Not Available - Active ASPIRIN (unknown strength) Not Available - Active ARNUITY ELLIPTA (unknown strength) Not Available - Active VITAMIN C (unknown strength) Not Available - Active Procedures Procedure Date Office/Outpatient Visit,New, Mod 2021 X-Ray Exam Of Neck Spine, 4+ Views Advance Directives Directive Yes / No Effective Date File Name No Information Encounters Encounter Description Practice Location Reason(s) For Visit Diagnoses Date Provider Providers Copied on Encounter [facility], [address], [place], [id number], [place] tel:[phone] [facility] No Information Joanna Gonzalez. [facility], [address], [address], [place], [address], [place]. tel:[phone] [facility], [address], [place], [place], [id number], [place] tel:[phone] [facility] Other spondylosis with myelopathy, cervical region Joanna Gonzalez. [facility], [address], [address], [place], [address], [place]. tel:[phone] Referring Provider: Aaron Robert, [address], [place], [address]. tel:[phone] Family History Family Member Type Diagnosis Age At Onset No Information Payers Payer name Insurance type Covered constitution party ID Isatu hodgson(s) Kateirwin NORA Rivera 2021 [id number] Social History Type Description Quantity Date Captured [...]
[2023-06-29 13:57] LABS: Creatinine* 0.8 mg/dL (0.5-1.5); Est. Creatinine Clearance* 96.36; Estimated Glomerular Filt Rate 106 ml/min
[2023-06-29 13:58] LABS: Alanine Aminotransferase* 165 U/L (4-50); Alkaline Phosphatase* 426 U/L (40-150); Anion Gap 8 mEq/L (7-15); Aspartate Amino Transferase* 385 U/L (12-35); Bilirubin Direct* 1.8 mg/dL (0.0-0.5); Bilirubin Total* 3.1 mg/dL (0.1-1.5); Blood Urea Nitrogen* 17 mg/dL (7-30); Calcium* 8.6 mg/dL (8.4-10.6); Carbon Dioxide* 26 mmol/L (20-32); Glucose* 123 mg/dL (60-115); Lipase* 48 U/L (23-300); Total Protein* 6.9 g/dL (6.0-8.3)
[2023-06-29 14:01] LABS: C Reactive Protein* 8.3 mg/dL (0.5-1.0)
[2023-06-29 14:05] LABS: D Dimer Quantitative* 11.48 ug/ml (0.00-0.50)
[2023-06-29] MEDS: 0.9 % SODIUM CHLORIDE 1000 ml 1,000 ML IV (14:10)
[2023-06-29 14:13] LABS: NT Pro B Type NatriureticPept* 607 pg/mL; Troponin I* < 0.01 ng/mL (0.01-0.04)
[2023-06-29 14:21] LABS: Erythrocyte SedimentationRate* 45 mm/hr (2-15)
--- NOTE | 2023-06-29 14:21 | CRLHL7_ITS ---
For Patients: As a result of the Century Cures Act, medical imaging exams and procedure reports are released immediately into your electronic medical record. You may view this report before your referring provider. If you have questions, please contact your health care provider. HISTORY: Abdominal pain. TECHNIQUE: Limited abdominal ultrasound. COMPARISON: CT from 02/13/2020. FINDINGS: Liver is heterogeneous in appearance with multiple masses present. They may indicate the presence of hepatic metastases. Further evaluation with CT imaging with contrast is suggested. There is no biliary ductal dilatation. Extrahepatic bile duct measures 4 mm which is normal. The gallbladder is nondistended. The gallbladder wall appears thickened though this may relate to its nondistended nature. No gallstones are apparent. Right kidney unremarkable. No upper abdominal ascites. IMPRESSION: 1. Heterogeneous liver with multiple masses which may reflect metastases. Further evaluation with CT imaging is suggested. 2. Contracted gallbladder, without stones. 3. No biliary ductal dilatation. Dictated by Michael Morales MD @ 06/29/2023 4:06:43 PM Dictated by: Michael Morales MD @ 06/29/2023 16:06:50 (Electronically Signed)
[2023-06-29 14:32] LABS: Thyroid Stimulating Hormone* 0.621 uIU/mL (0.270-4.20)
--- NOTE | 2023-06-29 14:50 | CRLHL7_ITS ---
For Patients: As a result of the Century Cures Act, medical imaging exams and procedure reports are released immediately into your electronic medical record. You may view this report before your referring provider. If you have questions, please contact your health care provider. INDICATION: .shortness of breath TECHNIQUE: CT chest PE was acquired with 95 cc Isovue 370 IV contrast. COMPARISON: None FINDINGS: Pulmonary Arteries: Suboptimal contrast bolus timing acquisition and motion degrades evaluation of the pulmonary arteries. No discrete large central pulmonary embolus. No pulmonary hypertension or right ventricular strain. Heart and Mediastinum: Atrophic versus resected thyroid. No axillary or supraclavicular lymphadenopathy. No mediastinal, hilar or retrocrural lymphadenopathy. Normal heart size. Normal caliber aorta. Lungs and Airways: Motion. Six millimeter nodule within the left apex, axial image 19. Right basilar passive subsegmental atelectasis. 3 millimeter nodule abutting the minor fissure, potentially calcified. No endoluminal lesion. Pleura: Trace right pleural effusion. Abdomen: Refer to dedicated abdominal CT of same day. Bones and soft tissues: The skeletal structures and soft tissues of the chest wall are unremarkable. IMPRESSION: 1. Suboptimal contrast bolus timing acquisition and motion degrades evaluation of the pulmonary arteries. No discrete large central pulmonary embolus. 2. 6 millimeter left apex indeterminate pulmonary nodule. Recommend attention on follow-up exams per clinical protocol. 3. Refer to dedicated abdominal CT of same day for evaluation of the abdomen and pelvis. Please note that all CT scans at this facility use dose modulation, iterative reconstruction, and/or weight-based dosing when appropriate to reduce radiation dose to as low as reasonably achievable. Dictated by Oj Vogt MD @ 06/29/2023 4:18:21 PM (Electronically Signed)
== END 2023-06-29 18:11 | disposition home or self-care (01) ==
PROVIDERS: Emergency Provider Family Medicine; PCP Surgery
DX: K76.89 Other specified diseases of liver (principal)
CPT/HCPCS: 36415; 71275; 74177; 76705; 80048; 80076; 81001; 83605; 83690; 83880; 84443; 84484; 85025; 85379; 85610; 85651; 86140; 87086; 93005; 94761; 99285; J7030; Q9967

== ENCOUNTER 2023-07-20 11:27 | Outpatient (CLI) | payer MEDICAID, SELFPAY ==
--- OUTSIDE RECORDS SUMMARY | 2023-07-21 11:44 | XMS_ITS | Continuity of Care Document ---
Author Name Unknown Organization [facility] Address [address] [place] [address] Phone Care Team Providers Care Motor Transport Inspector Name Role Phone Carlos Marshall MD Unavailable [...] Copied on Encounter [facility], [address], [place], [id number], [place] tel:[phone] [facility] No Information Joanna Gonzalez. [facility], [address], [address], [place], [address], [place]. tel:[phone] [facility], [address], [place], [place], [id number], [place] tel:[phone] [facility] Other spondylosis with myelopathy, cervical region oJanna Gonzalez. [facility], [address], [address], [place], [address], [place]. tel:[phone] Referring Provider: Aaron Robert, [address], [place], [address]. tel:[phone] Family History Family Member Type Diagnosis Age At Onset No Information Payers Payer name Insurance type Covered republican ID Isatu hodgson(s) Kateirwin NORA Rivera 2021 [id number] Social History Type Description Quantity Date Captured [...]
== END 2023-07-20 11:28 | disposition home or self-care (01) ==
LOC: AMB 07-21 11:42
PROVIDERS: PCP Surgery; Visit Provider Family Medicine
DX: R06.02 Shortness of breath (principal)
CPT/HCPCS: A0425; A0427

== ENCOUNTER 2023-07-20 11:58 | Emergency (ER) | payer MEDICAID, SELFPAY ==
[2023-07-20] VITALS (26 sets, daily range): BP systolic 105–149; BP diastolic 48–108; PULSE 73–86; RESP 21; TEMP 36.6; O2SAT 86–98; BMI 40.4
--- NOTE | 2023-07-20 12:03 | CRLHL7_ITS ---
For Patients: As a result of the Century Cures Act, medical imaging exams and procedure reports are released immediately into your electronic medical record. You may view this report before your referring provider. If you have questions, please contact your health care provider. INDICATION: Chest wall pain. Prior hernia repair, appendectomy, and ablation of a renal mass. TECHNIQUE: Contrast-enhanced CT angiogram of the chest. 95 cc nonionic Isovue-370 administered. COMPARISON : June 29, 2023. FINDINGS: No acute pulmonary emboli. No thoracic aortic aneurysm or dissection. Stable but indeterminate pulmonary nodule posterior left lung apex, image 18 series 5, seen previously on image 19 series 5. Infiltrate or atelectasis at the right lung base. Atelectasis is favored. Trace pleural effusion on the right. The upper abdomen indicates a very large liver with hepatic fatty infiltration and completely included. The visualized spleen is unremarkable. The included skeleton is unremarkable. IMPRESSION: Infiltrate or atelectasis at the right lung base with trace pleural fluid. This is similar or minimally progressed compared to the prior study. Stable 7 mm pulmonary nodule posterior left upper lobe of the lung. Please note that all CT scans at this facility use dose modulation, iterative reconstruction, and/or weight-based dosing when appropriate to reduce radiation dose to as low as reasonably achievable. Dictated by Zay Yang MD @ 07/20/2023 1:48:26 PM (Electronically Signed)
--- NOTE | 2023-07-20 12:03 | CRLHL7_ITS ---
For Patients: As a result of the Century Cures Act, medical imaging exams and procedure reports are released immediately into your electronic medical record. You may view this report before your referring provider. If you have questions, please contact your health care provider. INDICATION: Chest wall pain. Liver mass. Abdominal pain. Prior hernia repair, appendectomy, and ablation of a renal mass. TECHNIQUE: Contrast-enhanced CT of the abdomen and pelvis. Comparison June 29, 2023. FINDINGS: Marked hepatomegaly. Multiple coalescing masses throughout both the right and left hepatic lobes of the liver. For measurement purposes, the posterior right hepatic lobe mass measures 15 x 15 cm, image 66 series 502. Hepatic metastatic disease is the diagnosis of exclusion. The spleen is unremarkable. The pancreas is within normal limits. The gallbladder is largely contracted. Normal adrenal glands. The right kidney is unremarkable. There is a partly calcified mass arising from the superior medial left kidney measuring 1.8 x 1.8 cm unchanged and likely the sequelae of prior treated renal disease is somewhat more densely calcified when compared with an older CT February 13, 2020. The liver masses are new when compared to February 13, 2020. The urinary bladder, prostate gland, and seminal vesicles are within normal limits. The small and large bowel are negative for obstruction. The stomach and duodenum are unremarkable except for a tiny esophageal hiatal hernia. There are postsurgical changes within the midline abdominal wall presumably from hernia repair. Minor increased attenuation of subcutaneous fat within the abdomen may reflect some edema. The included skeleton demonstrates pars defects at L5-S1 with slight anterolisthesis of L5 in relationship to S1. Degenerative disc disease at L4 and L5. There is a very tiny lucency within the right-side of the L4 vertebral body image 111 series 502 potentially a tiny hemangioma. Tiny lucency in the right side of T12 image 66 series 5 of 2 of uncertain etiology. IMPRESSION : 1. Diffuse hepatic enlargement. Multiple coalescing hepatic masses/metastases. This is new when compared to February 13, 2020, but was noted on June 29, 2023. 2. Post intervention change left kidney similar to the most recent study, more densely calcified when compared to February 13, 2020. 3. No lymphadenopathy or ascites. 4. Postsurgical change midline abdominal wall. 5. Atelectasis at the right lung base with trace pleural fluid. Tiny calcified granuloma right lung base. Please note that all CT scans at this facility use dose modulation, iterative reconstruction, and/or weight-based dosing when appropriate to reduce radiation dose to as low as reasonably achievable. Dictated by Zay Yang MD @ 07/20/2023 2:05:41 PM (Electronically Signed)
--- NOTE | 2023-07-20 12:06 | ED_ITS ---
HPI - General Adult General Chief complaint: Abdominal Pain Stated complaint: Short of breath Time Seen by Provider: 07/20/23 11:59 History of Present Illness HPI narrative: 53 white male with markedly elevated BMI with diabetes insulin-dependent and known liver masses, presents with right chest wall pain. It is suspicious in his liver for metastatic disease and he has got a scheduled oncology visit with [place]. He felt like he has got some right-sided chest wall pain today, called an ambulance he was brought to the ER. He lives at home with his in [place]. He is insulin-dependent diabetic, he denies any anterior chest pain, he told the paramedics she feels short of breath but he denies that to me. He does state he has had some thick mucus discharge out of his nose. He denies any leg swelling or edema. As mentioned his BMI is markedly elevated. No leg swelling noted no history of blood clots by his report. Related Data Home Medications Medication Instructions Recorded Confirmed atorvastatin 40 mg tablet 40 mg PO DAILY 05/12/23 05/12/23 blood-glucose sensor (Chemo Beanies G6 #1 ea 05/12/23 05/12/23 Sensor device) buspirone 15 mg tablet 15 mg PO BID 05/12/23 05/12/23 fluoxetine 20 mg capsule 60 mg PO QAM 05/12/23 05/12/23 insulin aspart U-100 100 unit/mL subcut 05/12/23 05/12/23 (3 mL) subcutaneous pen insulin glargine 100 unit/mL (3 unit subcut 05/12/23 05/12/23 mL) subcutaneous pen (Lantus Solostar U-100 Insulin) naproxen 500 mg tablet 500 mg PO BID 05/12/23 05/12/23 omeprazole 40 mg capsule,delayed 40 mg PO DAILY 05/12/23 05/12/23 release valsartan 80 mg tablet 80 mg PO DAILY 05/12/23 05/12/23 Allergies Allergy/AdvReac Type Severity Reaction Status Date / Time lisinopril Allergy Mild Cough Verified 07/20/23 12:35 metformin AdvReac Mild Diarrhea Verified 07/20/23 12:35 Review of Systems Status of ROS: Reports: 6 or more systems reviewed and unremarkable except as noted in History and below PFSH PFS Medical History Psoriasis ?L40.9 - Psoriasis, unspecified (ICD-10) Eczema ?L30.9 - Dermatitis, unspecified (ICD-10) Carcinoma of kidney ?C64.9 - Malignant neoplasm of unspecified kidney, except renal pelvis (ICD- 10) Hypertension ?I10 - Essential (primary) hypertension (ICD-10) Type 2 diabetes mellitus without complication, with long-term current use of insulin ?E11.9 - Type 2 diabetes mellitus without complications (ICD-10) ?Z79.4 - buttermaker (current) use of insulin (ICD-10) TYSON (obstructive sleep apnea) ?G47.33 - Obstructive sleep apnea (adult) (pediatric) (ICD-10) 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) Morbid obesity ?E66.01 - Morbid (severe) obesity due to excess calories (ICD-10) Carpal tunnel syndrome ?G56.00 - Carpal tunnel syndrome, unspecified upper limb (ICD-10) Aphasia ?R47.01 - Aphasia (ICD-10) Social History Smoking Status: Never smoker Do you use any of these nicotine containing products: None Second hand tobacco smoke exposure: No How often do you have a drink containing alcohol: never How often do you have six or more drinks on one occasion: Never AUDIT-C Alcohol total score: 0 Non-prescribed substance use: denies use Exam Narrative: Exam Narrative: Objective: Patient is an obese white male who has got fairly reasonable vital signs per paramedics He is alert orient x3, noncyanotic, no accessory muscles of respiration used for breathing HEENT is unremarkable neck is supple Pulses regular, chest clear, abdomen obese benign mild right chest wall tenderness to palpation in the anterior axillary line to the chondral margin. No palpable masses, but this extends right over his liver. Extremities are no edema Neurologic grossly nonfocal good peripheral perfusion , skin is warm and dry peripherally, the patient does have some slight yellow tint to his skin and sclera Const: Vital Signs, click to edit/add: Vital Signs - 24 hr 07/20/23 12:02 07/20/23 12:03 07/20/23 12:05 Temperature 97.9 F Pulse Rate 80 77 Pulse Rate [Right Pulse Oximeter] 86 Respiratory Rate 21 Blood Pressure 115/72 Blood Pressure [Ri ght Upper Arm] 115/72 Pulse Oximetry 93 93 95 Oxygen Delivery Me thod Room Air 07/20/23 12:17 07/20/23 12:38 07/20/23 12:45 Temperature Pulse Rate 83 74 Pulse Rate [Right Pulse Oximeter] Respiratory Rate Blood Pressure Blood Pressure [Ri ght Upper Arm] Pulse Oximetry 98 95 94 Oxygen Delivery Me thod 07/20/23 13:00 07/20/23 13:01 07/20/23 13:15 Temperature Pulse Rate 78 73 80 Pulse Rate [Right Pulse Oximeter] Respiratory Rate Blood Pressure 105/48 L Blood Pressure [Ri ght Upper Arm] Pulse Oximetry 95 96 96 Oxygen Delivery Me thod 07/20/23 13:30 07/20/23 13:34 07/20/23 13:45 Temperature Pulse Rate 77 79 73 Pulse Rate [Right Pulse Oximeter] Respiratory Rate Blood Pressure Blood Pressure [Ri ght Upper Arm] Pulse Oximetry 93 95 93 Oxygen Delivery Me thod 07/20/23 14:00 07/20/23 14:04 07/20/23 14:15 Temperature Pulse Rate 77 75 78 Pulse Rate [Right Pulse Oximeter] Respiratory Rate Blood Pressure Blood Pressure [Ri ght Upper Arm] Pulse Oximetry 93 91 94 Oxygen Delivery Me thod 07/20/23 14:30 07/20/23 14:31 07/20/23 14:45 Temperature Pulse Rate 80 82 84 Pulse Rate [Right Pulse Oximeter] Respiratory Rate Blood Pressure 130/88 Blood Pressure [Ri ght Upper Arm] Pulse Oximetry 94 95 95 Oxygen Delivery Me thod 07/20/23 15:00 07/20/23 15:02 07/20/23 15:15 Temperature Pulse Rate 79 79 79 Pulse Rate [Right Pulse Oximeter] Respiratory Rate Blood Pressure 126/108 H Blood Pressure [Ri ght Upper Arm] Pulse Oximetry 95 93 86 L Oxygen Delivery Me thod 07/20/23 15:30 07/20/23 15:33 07/20/23 15:45 Temperature Pulse Rate 75 76 81 Pulse Rate [Right Pulse Oximeter] Respiratory Rate Blood Pressure 149/77 H Blood Pressure [Ri ght Upper Arm] Pulse Oximetry 92 91 94 Oxygen Delivery Me thod 07/20/23 16:00 07/20/23 16:02 Temperature Pulse Rate 79 80 Pulse Rate [Right Pulse Oximeter] Respiratory Rate Blood Pressure 123/89 Blood Pressure [Ri ght Upper Arm] Pulse Oximetry 93 95 Oxygen Delivery Me thod Course Vital Signs Vital signs: Initial Vital Signs Pulse Rate 80 07/20/23 12:02 Blood Pressure 115/72 07/20/23 12:02 Blood Pressure Mean 86 07/20/23 12:02 Pulse Oximetry 93 07/20/23 12:02 Vital Signs Pulse Rate 80 07/20/23 12:02 Blood Pressure 115/72 07/20/23 12:02 Pulse Oximetry 93 07/20/23 12:02 Temperature 97.9 F 07/20/23 12:05 Pulse Rate 80 07/20/23 16:02 Respiratory Rate 21 07/20/23 12:05 Blood Pressure 123/89 07/20/23 16:02 Pulse Oximetry 95 07/20/23 16:02 Oxygen Delivery Method Room Air 07/20/23 12:05 Medical Decision Making MDM Narrative Medical decision making narrative: 53-year-old obese male with a history of liver masses concerning for metastatic disease. Scheduled undergo oncology assessment male. Patient this time has right-sided chest wall discomfort. He has had a CT scan within the last few weeks but I think even despite his diabetic status think we should repeat this to make sure does not have a PE or other intrapulmonary process or bleeding from his liver. He will get a CT scan with contrast of his chest and abdomen and pelvis. Will check EKG, troponin, laboratory studies, give some IV fluid. Disposition pending findings above. I think he would benefit from a small dose of morphine as well. The patient's bilirubin has tripled from 3-9 since the 29 of June, his alk-phos is doubled from 400-900. Will await his CT results I think some blood cultures be appropriate, may need transfer for tertiary care oncology and GI. Addendum to 10:00 p.m.: The patient's chest CT looks consistent with his prior CT of the chest, atelectasis at the base possible infiltrate but clinically would be more like atelectasis. His abdominal CT shows diffuse hepatic enlargement multiple coalescing hepatic masses or metastases new compared with 02/13/2020 but noted on June 29. As mention his bilirubin has tripled in his alk-phos is doubled. I suspect he is going to need this worked up biopsied and further workup, will try and make transfer arrangements. Addendum 2:50 p.m.: Given the patient's complexity and his multiple medical issues, I felt that we need to workup this jaundice much quicker than is plan, and kindly [facility] has helped us with acceptance and transfer. They have no bed availability yet but they will have shortly and they will let us know and we can transfer the patient. In the interim will given some IV Zosyn since he had blood cultures done. And I think we should also continue hemodynamic monitoring. Will make transfer arrangements and have completed transfer sheets, patient is in stable condition for transfer thank you Lab Data Labs: Lab Results 07/20/23 07/20/23 07/20/23 Range/Units 12:12 12:33 Unknown WBC 12.33 H (4.50-11.00) K/uL RBC 4.47 (4.30-5.90) m/uL Hgb 11.5 L (13.5-17.5) gm/dL Hct 37.9 (37.0-53.0) % MCV 85 (80-100) fL MCH 26 (26-34) pg MCHC 30 L (32-36) gm/dL RDW Coeff of Jamil 22.4 H (11.5-15.5) % Plt Count 267 (140-440) K/uL Neut % (Auto) 78.9 H (42.0-72.0) % Lymph % (Auto) 10.0 L (20-44) % [place] % (Auto) 9.0 (0.0-11.0) % Eos % (Auto) 1.2 (0.0-7.0) % Baso % (Auto) 0.4 (0.0-3.0) % Neut # (Auto) 9.70 H (1.7-7.0) K/uL Lymph # (Auto) 1.20 (0.90-2.90) K/uL [place] # (Auto) 1.10 H (0.00-0.90) K/UL Eos # (Auto) 0.10 (0.00-0.50) K/uL Baso # (Auto) 0.00 (0.00-0.30) K/uL Abs Immat Gran (auto) 0.10 (0.00-0.30) K/uL Imm/Tot Granulo (auto) 0.5 % Sodium 139 (135-149) mmol/L Potassium 4.4 (3.6-5.1) mmol/L Chloride 108 (96-114) mmol/L Carbon Dioxide 26 (20-32) mmol/L Anion Gap 5 L (7-15) mEq/L BUN 18 (7-30) mg/dL Creatinine 0.8 (0.5-1.5) mg/dL Estimated Creat Clear 96.36 Estimated GFR 106 ml/min Glucose 92 (60-115) mg/dL Calcium 8.5 (8.4-10.6) mg/dL Total Bilirubin 9.6 H (0.1-1.5) mg/dL Direct Bilirubin 7.8 H (0.0-0.5) mg/dL AST 362 H (12-35) U/L ALT 116 H (4-50) U/L Alkaline Phosphatase 931 H (40-150) U/L Troponin I < 0.01 L (0.01-0.04) ng/mL C-Reactive Protein 5.9 H (0.5-1.0) mg/dL NT-Pro-B Natriuret Pep 243 pg/mL Total Protein 6.4 (6.0-8.3) g/dL Albumin 2.6 L (3.3-5.0) g/dL Urine Color Potter A (Yellow) Urine Appearance Clear (Clear) Urine pH 7.0 (5.0-8.5) Ur Specific [place] 1.020 (1.000-1.030) Urine Protein Trace A (Negative) Urine Glucose (UA) 3+ A (Negative) Urine Ketones Negative (Negative) Urine Blood Negative (Negative) Urine Nitrite Negative (Negative) Urine Bilirubin 2+ A (Negative) Urine Urobilinogen >=8.0 A (0.2-1.0) Ur Leukocyte Esterase Negative (Negative) Urine RBC 0-2 (0-2) Urine WBC 2-5 (0-5) Ur Squamous Epith Cells Few (None-Few) Urine Bacteria None (None) SARS-CoV-2 (PCR) Negative SARS-CoV-2 (Negative) Influenza Type A (PCR) Negative PCR FLU A (Negative) Influenza Type B (PCR) Negative PCR FLU B (Negative) RSV (PCR) Negative PCR RSV (Negative) Discharge Plan Discharge Clinical Impression: Acute chest wall pain, Liver mass, Jaundice Patient Disposition: Xfer Other Prescriptions: No Action (DME) Dexcom G6 Sensor Device See Rx Instructions .ROUTE Q10D Qty: 1 Rx Instructions: As directed insulin glargine [Lantus Solostar U-100 Insulin] 100 unit/mL (3 mL) insulin pen subcut insulin aspart U-100 100 unit/mL (3 mL) insulin pen subcut omeprazole 40 mg capsule,delayed release(DR/EC) 40 mg PO DAILY valsartan 80 mg tablet 80 mg PO DAILY atorvastatin 40 mg tablet 40 mg PO DAILY buspirone 15 mg tablet 15 mg PO BID naproxen 500 mg tablet 500 mg PO BID fluoxetine 20 mg capsule 60 mg PO QAM Stand Alone Forms: [employer] Info Instructions
[2023-07-20 12:25] LABS: Basophils Percent Auto 0.4 % (0.0-3.0); Eosinophils Percent Auto 1.2 % (0.0-7.0); Hematocrit 37.9 % (37.0-53.0); Hemoglobin* 11.5 gm/dL (13.5-17.5); Immature Granulocytes Pct Auto 0.5 %; Mean Corpuscular HGB Conc 30 gm/dL (32-36); Mean Corpuscular Hemoglobin 26 pg (26-34); Mean Corpuscular Volume 85 fL (80-100); Neutrophils Percent Auto 78.9 % (42.0-72.0); Platelet Count* 267 K/uL (140-440); RDW Coefficient of Variation % 22.4 % (11.5-15.5); Red Blood Count 4.47 m/uL (4.30-5.90); Slide Review Reflex No; White Blood Count* 12.33 K/uL (4.50-11.00)
[2023-07-20 12:38] LABS: Appearance Urine Clear (Clear); Bilirubin Urine 2+ (Negative); Blood Urine Negative (Negative); Color Urine Orange (Yellow); Glucose Urine 3+ (Negative); Ketones Urine Negative (Negative); Leukocyte Esterase Urine Negative (Negative); Nitrite Urine Negative (Negative); Protein Urine Trace (Negative); Urobilinogen Urine >=8.0 (0.2-1.0)
[2023-07-20] MEDS: 0.9 % SODIUM CHLORIDE 500 ML 500 ML IV (12:41)
[2023-07-20] MEDS: MORPHINE 4 MG/ML INJ 2 MG IVP (12:41)
[2023-07-20 12:46] LABS: RBC Urine 0-2 (0-2)
[2023-07-20 12:46] LABS: Chloride* 108 mmol/L (96-114); Potassium* 4.4 mmol/L (3.6-5.1); Sodium* 139 mmol/L (135-149)
[2023-07-20 12:47] LABS: Squamous Epithelial Cell Urine Few (None-Few)
[2023-07-20 12:47] LABS: Albumin* 2.6 g/dL (3.3-5.0)
--- OUTSIDE RECORDS SUMMARY | 2023-07-20 12:48 | XMS_ITS | Continuity of Care Document ---
Author Name Unknown Organization [facility] Address [address] [place] [address] Phone Care Team Providers Care Bioprocessing Manufacturing Technician Name Role Phone Carlos Marshall MD Unavailable [...] Copied on Encounter [facility], [address], [place], [id number], [place] tel:[phone] [facility] No Information Joanna Gonzalez. [facility], [address], [address], [place], [address], [place]. tel:[phone] [facility], [address], [place], [place], [id number], [place] tel:[phone] [facility] Other spondylosis with myelopathy, cervical region Joanna Gonzalez. [facility], [address], [address], [place], [address], [place]. tel:[phone] Referring Provider: Aaron Robert, [address], [place], [address]. tel:[phone] Family History Family Member Type Diagnosis Age At Onset No Information Payers Payer name Insurance type Covered democrat ID Isatu hodgson(s) Kateirwin NORA Rivera 2021 [id number] Social History Type Description Quantity Date Captured [...]
[2023-07-20 12:49] LABS: Creatinine* 0.8 mg/dL (0.5-1.5); Est. Creatinine Clearance* 96.36; Estimated Glomerular Filt Rate 106 ml/min
[2023-07-20 12:50] LABS: Alkaline Phosphatase* 931 U/L (40-150); Anion Gap 5 mEq/L (7-15); Aspartate Amino Transferase* 362 U/L (12-35); Bilirubin Direct* 7.8 mg/dL (0.0-0.5); Bilirubin Total* 9.6 mg/dL (0.1-1.5); Blood Urea Nitrogen* 18 mg/dL (7-30); Calcium* 8.5 mg/dL (8.4-10.6); Carbon Dioxide* 26 mmol/L (20-32); Glucose* 92 mg/dL (60-115); Total Protein* 6.4 g/dL (6.0-8.3)
[2023-07-20 12:51] LABS: Alanine Aminotransferase* 116 U/L (4-50)
[2023-07-20 12:52] LABS: C Reactive Protein* 5.9 mg/dL (0.5-1.0)
[2023-07-20 13:06] LABS: PCR FLU A Negative PCR FLU A (Negative); PCR FLU B Negative PCR FLU B (Negative); PCR RSV Negative PCR RSV (Negative)
[2023-07-20 13:23] LABS: NT Pro B Type NatriureticPept* 243 pg/mL; Troponin I* < 0.01 ng/mL (0.01-0.04)
[2023-07-20 13:23] LABS: SARS PCR* Negative SARS-CoV-2 (Negative)
[2023-07-20] MEDS: PIPERACILLIN/TAZOBACTAM 4.5 GM in 0.9 % SODIUM CHLORIDE Mini-bag 100 ML IVPB (15:05)
[2023-07-20] MEDS: MORPHINE 4 MG/ML INJ IVP (16:03)
--- NOTE | 2023-07-20 16:11 | ED.NURSE ---
Nurse to nurse report given to ALEAH Calderon at [facility]
== END 2023-07-20 16:15 | disposition other institution (70) ==
PROVIDERS: Emergency Provider Family Medicine; PCP Surgery
DX: R07.89 Other chest pain (principal); K76.89 Other specified diseases of liver; R17 Unspecified jaundice
CPT/HCPCS: 36415; 71275; 74177; 80048; 80076; 81003; 81015; 83880; 84484; 85025; 86140; 87040; 87181; 87631; 93005; 94761; 96365; 96375; 99285; J2270; J2543; J7120; Q9967

== ENCOUNTER 2023-07-20 15:55 | Outpatient (CLI) | payer MEDICAID, SELFPAY ==
--- OUTSIDE RECORDS SUMMARY | 2023-07-21 12:21 | XMS_ITS | Continuity of Care Document ---
Author Name Unknown Organization [facility] Address [address] [place] [address] Phone Care Team Providers Care Ocean Forwarder Name Role Phone Carlos Marshall MD Unavailable [...] Copied on Encounter [facility], [address], [place], [id number], [place] tel:[phone] [facility] No Information Joanna Gonzalez. [facility], [address], [address], [place], [address], [place]. tel:[phone] [facility]i [facility], [address], [place], [place], [id number], [place] tel:[phone] [facility] Other spondylosis with myelopathy, cervical region Joanna Gonzalez. [facility], [address], [address], [place], [address], [place]. tel:[phone] Referring Provider: Aaron Robert, [address], [place], [address]. tel:[phone] Family History Family Member Type Diagnosis Age At Onset No Information Payers Payer name Insurance type Covered democrat ID Isatu hodgson(s) Kateirwin NORA Rivera 2021 [id number] Social History Type Description Quantity Date Captured [...]
== END 2023-07-20 15:56 | disposition home or self-care (01) ==
LOC: AMB 07-21 12:18
PROVIDERS: PCP Surgery; Visit Provider Family Medicine
DX: R16.0 Hepatomegaly, not elsewhere classified (principal); R17 Unspecified jaundice
CPT/HCPCS: A0425; A0426